=== PATIENT | male | born 1970 | race Caucasian/White ===

== ENCOUNTER 2021-04-18 15:17 | Emergency (ER) | payer OTHER, SELFPAY ==
[2021-04-18 15:39] VITALS: BP 140/74; PULSE 87; RESP 18; TEMP 36.8; O2SAT 95; BMI 48.4
--- NOTE | 2021-04-18 16:02 | HMH.EDUTC ---
[facility] [place] Clinical Impression: Wound of abdomen, Need for tetanus, diphtheria, and acellular pertussis (Tdap) vaccine Dog bite Qualifiers: Encounter type: initial encounter Qualified Code(s): W54.0XXA - Bitten by dog, initial encounter Disposition: Home, Self-Care Condition on Discharge: Good Instructions: DI for Animal Bites, Tetanus, Diphtheria, Pertussis (Tdap) Vaccine, DI for Dog Bite Additional Instructions: Keep the wounds clean and dry. Follow up with your regular doctor. Take the antibiotics as directed and apply the topical antibiotics as directed. Make sure you stay in contact with the health department regarding the health of the dog. Watch the puncture wounds for signs of worsening infection, such as worsening redness, drainage, swelling, etc. GO TO THE ER FOR ANY WORSENING SYMPTOMS Prescriptions: Amoxicillin/Potassium Clav [Augmentin 875-125 Tablet] 1 tab PO Q12H 10 Days #20 tab Transmission Status: Received by [email or web address] #[id number] Mupirocin [Bactroban 2% Ointment 22gm tube] 1 applicatio TP TID 7 Days #1 gm Transmission Status: Received by [email or web address] #[id number] Referrals: Joel Alan MD [Primary Care Provider] - Time of Disposition: 16:33 Medical Decision Making - Medical Records Medical records reviewed: No: I reviewed the patient's medical records. - Georgi Inquiry Pt receiving controlled substance: No Vital Signs: 04/18/21 15:39 04/18/21 16:36 Temperature 98.2 F 98.2 F Temperature Source Oral Pulse Rate 85 Pulse Rate [Radial] 87 Respiratory Rate 18 19 Blood Pressure 145/70 H Blood Pressure [Right Arm] 140/74 Blood Pressure Mean [Right Arm] 96 02 Sat by Pulse Oximetry 95 Orders (Tests/Meds): ED MEDICATIONS Discontinued Medications Generic Name Dose Route Start Last Admin Trade Name Freq PRN Reason Stop Dose Admin Tetanus/Reduced Diphtheria/Acell Pertussis 0.5 ml 04/18/21 16:02 04/18/21 16:10 Tet/Diphth/Pert-Adult 0.5ml Syringe IM 04/18/21 16:03 0.5 ml .ONCE ONE Administration [facility] [place] - General Stated complaint: dog scratch AO 04/18/21 Time Seen by Provider: 04/18/21 16:02 Mode of Arrival: Ambulatory Source of Information: Patient Limitations: No Limitations Description of Symptoms (Recalled from Triage Doc. by RN): DOG STRATCHES FROM A STRAY DOG NOTED TO THE LEFT SIDE. 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 He does not think the dog had it's rabies shot. He states that the dog was a stray that had took up at his daughter in law's house. He doesn't think the dog meant to be mean or acted visious. He was swinging some keys and he thinks the dog was trying to play or grab the keys. - Related Data Previous Rx's Medication Instructions Recorded Amoxicillin/Potassium Clav 1 tab PO Q12H 10 Days #20 tab 04/18/21 [Augmentin 875-125 Tablet] Mupirocin [Bactroban 2% Ointment 1 applicatio TP TID 7 Days #1 gm 04/18/21 22gm tube] Allergies Allergy/AdvReac Type Severity Reaction Status Date / Time INGREDIENT: NO KNOWN - NO Allergy Unknown Uncoded 06/14/17 14:44 KNOWN DRUG ALLERGY - Worker's Comp Is this a Worker's Comp case?: No [facility] History - Hepatitis A Screen Drug use history?: No High risk sexual behaviors?: No History of sexually transmitted infection?: No Currently employed?: No Childcare worker?: No Do you have indoor plumbing?: Yes Do you have electricity?: Yes Attestation statement:: This patient has been screened for Hepatitis A risk factors. I have reviewed the patient's past medical history: Yes ROS Obtained: Yes All systems review
[2021-04-18 16:36] VITALS: BP 145/70; PULSE 85; RESP 19; TEMP 36.8; O2SAT 96
== END 2021-04-18 16:39 | disposition home or self-care (01) ==
PROVIDERS: Emergency Provider Nurse Practitioner Family; PCP Family Medicine
DX: S31.131A Puncture wound of abdominal wall without foreign body, left upper quadrant without penetration into peritoneal cavity, initial encounter (principal); W54.0XXA Bitten by dog, initial encounter; Z23 Encounter for immunization
CPT/HCPCS: 90715; 96372; 99202; G0463

== ENCOUNTER 2023-06-13 17:23 | Emergency (ER) | payer OTHER, SELFPAY ==
[2023-06-13 17:40] VITALS: BP 160/90; PULSE 82; RESP 18; TEMP 36.8; O2SAT 95; BMI 46.7
[2023-06-13 17:54] LABS: UTC Influenza A Antigen Negative (Negative)
[2023-06-13 17:55] LABS: UTC Influenza B Antigen Negative (Negative)
--- NOTE | 2023-06-13 18:23 | EXP.UTC ---
Discharge Plan Disposition Patient Disposition: Home, Self-Care Condition: Good Prescriptions Prescriptions: New methylprednisolone [Medrol (Dion)] 4 mg tablets,dose pack See Rx Instructions .Route .COMPLEX 6 Days Qty: 21 0RF Rx Instructions: taper pack; amoxicillin-pot clavulanate 875-125 mg Tablet 1 tab PO Q12H Qty: 20 0RF guaifenesin [Mucinex] 600 mg tablet extended release 12hr 1,200 mg PO BID PRN (Reason: cough) Qty: 20 0RF Referrals Follow up/Referrals: Kostas Nunn MD [Primary Care Provider] - See instructions Activity Restrictions/Add. Instructions Additional Instructions/Restrictions: *Monitor Temp, Over the counter Motrin or Tylenol as directed/as needed Tylenol every 4 hours and Motrin every 6 hours (as long as your family doctor has told you that you can take it) for fever or pain. and straight to ER if unable to lower temp less than 101.0 after medication given *Warm salt water gargles may help to soothe the throat *Throat Lozenges? *Warm fluids like tea with honey may help to soothe the throat? *Sleep elevated *Humidifier/Vaporizer Take medication as prescribed Follow up with your Family Doctor if no improvement or any worsening Follow up IMMEDIATELY for new or worsening symptoms or no Noticeable improvement over the next 48-72 hours. 911 for difficulty breathing or swallowing Clinical Impressions Clinical Impression: Sinusitis Qualifiers: Sinusitis location: unspecified location Chronicity: unspecified Qualified Code(s): J32.9 - Chronic sinusitis, unspecified Instructions Patient Instructions: Sinusitis, DI for Sinusitis Discharge ED Provider: Mora Martinez [facility] [place] HPI General Stated complaint: congestion, body aches, cough Mode of Arrival: Ambulatory Source of Information: Patient Limitations: No Limitations Time Seen by Provider: 06/13/23 18:23 Description of Symptoms (Recalled from Triage Doc. by RN): body aches, and sinus pressure HEENT Symptoms (Recalled from RN notes): Yes Resp Symptoms (Recalled from RN notes): No Skin Symptoms (Recalled from RN notes): No MS Symptoms (Recalled from RN notes): No Functional Status (Recalled from RN notes): n/a History of Present Illness Provider Complaint: Patient states that he has not been feeling well for about a week States that he has been having sinus pain and pressure, body aches, chills, headache, and pressure behind his eyes States today he was still not feeling any better so he came in to get checked Related Data Previous Rx's Medication Instructions Recorded amoxicillin 875 mg-potassium 1 tab PO Q12H #20 tabs 06/13/23 clavulanate 125 mg tablet guaifenesin 600 mg tablet, 1,200 mg PO BID PRN cough #20 tabs 06/13/23 extended release 12 hr (Mucinex) methylprednisolone 4 mg tablets in See Rx Instructions .Route 06/13/23 a dose pack (Medrol (Dion)) .COMPLEX 6 days #21 tabs Allergies Allergy/AdvReac Type Severity Reaction Status Date / Time INGREDIENT: NO KNOWN - NO Allergy Unknown Uncoded 06/13/23 17:55 KNOWN DRUG ALLERGY Worker's Comp Is this a Worker's Comp case?: No [facility] Disclaimer: The information contained in this section may have been updated after the patient was seen, as this information can be updated by other users. Social History Smoking Status: Unknown if ever smoked alcohol intake: never current occupational status: employed Travel in the last 8 weeks: None ROS Obtained: Yes All systems reviewed & no additional complaints except as documented and Yes Systems reviewed as appropriate & no additional complaints except as documented Constitutional Constitutional: Reports system reviewed and no additional complaints, except as documented, Reports as per HPI, Denies fever(s) and Reports headache(s) ENT Ears, Nose, Mouth, and Throat: Reports system reviewed and no additional complaints, except as documented, Reports as per HPI, Reports
[2023-06-13 18:39] VITALS: BP 160/90; PULSE 82; RESP 18; TEMP 36.8; O2SAT 95
== END 2023-06-13 18:39 | disposition home or self-care (01) ==
PROVIDERS: Emergency Provider Nurse Practitioner; PCP Family Medicine
DX: J01.90 Acute sinusitis, unspecified (principal); R05.9 Cough, unspecified; R09.81 Nasal congestion; R51.9 Headache, unspecified; R68.83 Chills (without fever)
CPT/HCPCS: 87804; 99212; 99214; G0463

== ENCOUNTER 2023-12-04 13:34 | Emergency (ER) | payer OTHER, SELFPAY ==
[2023-12-04 14:20] VITALS: BP 128/77; PULSE 79; RESP 20; TEMP 36.8; O2SAT 96; BMI 47.1
[2023-12-04 14:32] LABS: UTC Strep Screen (Rapid) Positive (Negative)
--- NOTE | 2023-12-04 14:56 | EXP.UTC ---
Discharge Plan Disposition Patient Disposition: Home, Self-Care Condition: Good Prescriptions Prescriptions: New azithromycin 250 mg tablet 250 mg PO DIRECTED Qty: 6 0RF Rx Instructions: Take two (2) tablets on day #1, then one (1) tablet day #2 thru #5 Referrals Follow up/Referrals: Provider,Referral, MD [Primary Care Provider] - See instructions Activity Restrictions/Add. Instructions Additional Instructions/Restrictions: Start antibiotics today be sure to take it as ordered with the full length of time although you should start feeling better in 24-48 hours. Change toothbrush and toothpaste 24-48 hours after starting antibiotics Tylenol or Motrin as needed for fever or pain Encourage fluids, water, Gatorade, Powerade, try cold fluids, popsicles, ice cream will make it feel better You are contagious for 24 hours. Avoid kissing anyone, no eating or drinking after anyone. You are contagious. Follow-up the ER for new or worsening symptoms or no noticeable improvement over the next 24-48 hours. Follow-up with PCP this week. Clinical Impressions Clinical Impression: Strep throat Instructions Patient Instructions: DI for Strep Throat Discharge ED Provider: Gilberto ([facility])Shane [facility] [place] HPI General Stated complaint: sore throat, cough, right ear pain Mode of Arrival: Ambulatory Source of Information: Patient and Spouse Limitations: No Limitations Time Seen by Provider: 12/04/23 14:56 Description of Symptoms (Recalled from Triage Doc. by RN): PATIENT C/O COUGH AND SORE THROAT X 3 DAYS HEENT Symptoms (Recalled from RN notes): Yes Resp Symptoms (Recalled from RN notes): Yes Skin Symptoms (Recalled from RN notes): No MS Symptoms (Recalled from RN notes): No Functional Status (Recalled from RN notes): WNL History of Present Illness Provider Complaint: 53 yr old male presents for cough and sore throat for 2 days Related Data Previous Rx's Medication Instructions Recorded azithromycin 250 mg tablet 250 mg PO DIRECTED #6 tabs 12/04/23 Allergies Allergy/AdvReac Type Severity Reaction Status Date / Time No Known Allergies Allergy Unverified 07/14/23 14:28 Worker's Comp Is this a Worker's Comp case?: No [facility] Disclaimer: The information contained in this section may have been updated after the patient was seen, as this information can be updated by other users. 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) Smoking Status: Unknown if ever smoked alcohol intake: never current occupational status: employed Travel in the last 8 weeks: None ROS Obtained: Yes All systems reviewed & no additional complaints except as documented Constitutional Constitutional: Reports system reviewed and no additional complaints, except as documented Eyes Eyes: Reports system reviewed and no additional complaints, except as documented ENT Ears, Nose, Mouth, and Throat: Reports system reviewed and no additional complaints, except as documented, Reports as per HPI and Reports sore throat Cardiovascular Cardiovascular: Reports system reviewed and no additional complaints, except as documented Respiratory Respiratory: Reports system reviewed and no additional complaints, except as documented, Reports as per HPI and Reports cough Gastrointestinal Gastrointestingal: Reports system reviewed and no additional complaints, except as documented Musculoskeletal Musculoskeletal: Reports system reviewed and no additional complaints, except as documented Integumentary/Breasts Skin/Breast: Reports system reviewed and no additional complaints, except as documented Neurologic Neurologic: Reports system reviewed and no additional complaints, except as documented Endocrine Endocrine: Reports system reviewed and no additional complaints, except as documented Hematologic/Lymphatic Henatologic/Lymphatic: Reports system reviewed and no additional complaints, except as documented Allergic/Immunologic Allergic/Immunologic: Reports system reviewed and no additional complaints, except as documented Physical Exam General General appearance: alert and in no apparent distress Head Head exam: atraumatic Eye Eye exam: Present normal appearance ENT ENT exam: Present mucous membranes moist and TM's normal bilaterally Expanded ENT Exam Throat exam: Present tonsillar erythema, tonsillomegaly and tonsillar exudate Respiratory Respiratory exam: Present normal lung sounds bilaterally Cardiovascular Cardiovascular exam: Present regular rate and normal rhythm Neurological Exam Neurological exam: Present alert and oriented X3 Medical Decision Making Medical Records Medical records reviewed: Yes I reviewed the patient's medical records. Georgi Inquiry Pt receiving controlled substance: No Georgi was queried for this patient: No Vital Signs: 12/04/23 14:20 Temperature 98.2 F Temperature Source Oral Pulse Rate [Left Brachial] 79 Respiratory Rate 20 Blood Pressure [Left Arm] 128/77 Blood Pressure Mean [Left Arm] 94 Blood Pressure Source [Left Arm] Automatic Cuff Blood Pressure Position [Left Arm] Sitting 02 Sat by Pulse Oximetry 96 Oxygen Delivery Method Room Air Lab Data Lab results reviewed: Yes I reviewed the patient's lab results. Lab Results 12/04/23 14:26: Strep Scn [facility] Positive A
[2023-12-04 15:07] VITALS: BP 128/77; PULSE 79; RESP 20; TEMP 36.8; O2SAT 96
== END 2023-12-04 15:09 | disposition home or self-care (01) ==
PROVIDERS: Emergency Provider Nurse Practitioner Family
DX: J02.0 Streptococcal pharyngitis (principal); R07.0 Pain in throat; R05.9 Cough, unspecified
CPT/HCPCS: 87880; 99212; 99214; G0463

== ENCOUNTER 2024-03-20 16:13 | Outpatient (POV) | payer OTHER, SELFPAY | END 2024-03-20 23:59 | disposition home or self-care (01) | LOC: SC 16:13 | PROVIDERS: Visit Provider Dermatology | DX: Z00.00 Encounter for general adult medical examination without abnormal findings (principal) ==

== ENCOUNTER 2024-03-31 18:26 | Emergency (ER) | payer OTHER, SELFPAY ==
[2024-03-31 18:37] VITALS: BP 146/75; PULSE 85; RESP 20; TEMP 37.1; O2SAT 96
[2024-03-31 18:38] VITALS: BP 146/75; PULSE 85; RESP 20; TEMP 37.1
== END 2024-03-31 18:39 | disposition home or self-care (01) ==
LOC: UTC 18:32
PROVIDERS: Emergency Provider Nurse Practitioner Family
DX: Z48.02 Encounter for removal of sutures (principal)
CPT/HCPCS: 99211; G0381

== ENCOUNTER 2024-07-13 17:38 | Emergency (ER) | payer OTHER, SELFPAY ==
[2024-07-13 17:50] VITALS: BP 140/80; PULSE 76; RESP 19; TEMP 36.8; O2SAT 97; BMI 40.4
[2024-07-13 18:00] LABS: UTC Strep Screen (Rapid) Positive (Negative)
--- NOTE | 2024-07-13 18:03 | ED_ITS ---
Discharge Plan Disposition Patient Disposition: Home, Self-Care Condition: Good Prescriptions Prescriptions: New prednisone 20 mg tablet 20 mg PO BID 3 Days Qty: 6 0RF benzonatate 100 mg capsule 100 mg PO TIDP PRN (Reason: Cough) Qty: 30 0RF amoxicillin-pot clavulanate 875-125 mg Tablet 1 tab PO Q12H Qty: 20 0RF Referrals Follow up/Referrals: Provider,Referral, MD [Primary Care Provider] - See instructions Activity Restrictions/Add. Instructions Additional Instructions/Restrictions: Drink plenty of fluids. Take tylenol or ibuprofen for pain or fever. Take the medications as directed. Follow up with your regular doctor. GO TO THE ER FOR ANY WORSENING SYMPTOMS Throw your tooth brush away and get a new one. Clinical Impressions Clinical Impression: Strep throat Instructions Patient Instructions: Strep Throat, DI for Strep Throat Print Language Print Language: Frisian Discharge ED Provider: Jose R Barahona [facility] [place] HPI General Stated complaint: sore throat cough Mode of Arrival: Ambulatory Source of Information: Patient Limitations: No Limitations Time Seen by Provider: 07/13/24 18:02 Description of Symptoms (Recalled from Triage Doc. by RN): PATIENT C/O SORE THROAT, COUGH, AND CHEST CONGESTION THAT STARTED THIS MORNING HEENT Symptoms (Recalled from RN notes): Yes Resp Symptoms (Recalled from RN notes): Yes Skin Symptoms (Recalled from RN notes): No MS Symptoms (Recalled from RN notes): No Functional Status (Recalled from RN notes): WNL History of Present Illness Provider Complaint: He states that he has had sore throat for the past 2 days. Now his throat is hurting worse and he is having chest and sinus congestion. He has ran a low grade fever at times too. Related Data Previous Rx's ?Medication ?Instructions ?Recorded amoxicillin 875 mg-potassium 1 tab PO Q12H #20 tabs 07/13/24 clavulanate 125 mg tablet benzonatate 100 mg capsule 100 mg PO TIDP PRN Cough #30 caps 07/13/24 prednisone 20 mg tablet 20 mg PO BID 3 days #6 tabs 07/13/24 Allergies Allergy/AdvReac Type Severity Reaction Status Date / Time No Known Allergies Allergy Unverified 07/14/23 14:28 Worker's Comp Is this a Worker's Comp case?: No [facility] Disclaimer: The information contained in this section may have been updated after the patient was seen, as this information can be updated by other users. 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) Smoking Status: Unknown if ever smoked alcohol intake: never current occupational status: employed Travel in the last 8 weeks: None Have you lived/traveled outside [place] in past 30 days?: No Contact w/someone who lives/traveled outside US past 30 days?: No Exposure to someone with infectious disease in past 14 days?: No Do you have a fever (greater than 100.4 F or 38 C)?: No Have you tested positive for COVID-19: No Exposed to someone with COVID-19 in past 14 days?: No Do you have a sore throat?: Yes Do you have a cough?: Yes Do you have any weakness?: No Do you have any diarrhea?: No Are you experiencing any unusual bleeding?: No Do you have any muscle aches/pain?: No Do you have any abdominal pain?: No Are you experiencing loss of taste or smell?: No ROS Obtained: Yes All systems reviewed & no additional complaints except as documented Constitutional Constitutional: Reports chills and Reports fever(s) Eyes Eyes: Denies eye discharge ENT Ears, Nose, Mouth, and Throat: Reports as per HPI Cardiovascular Cardiovascular: Denies chest pain Respiratory Respiratory: Denies chest congestion and Reports cough Gastrointestinal Gastrointestingal: Reports nausea; Denies abdominal pain, constipation, cramping, diarrhea or vomiting Musculoskeletal Musculoskeletal: Denies arthralgias Integumentary/Breasts Skin/Breast: Denies rash Neurologic Neurologic: Denies paresthesias Physical Exam General General appearance: alert and in no apparent distress Head Head exam: atraumatic, normocephalic and normal inspection Eye Eye exam: Present normal appearance, PERRL and EOMI ENT ENT exam: Present mucous membranes moist and normal external ear exam Expanded ENT Exam TM/Canal exam: Bilateral TM: erythema and bulging Nose exam: Absent sinus tenderness Mouth exam: Present normal external inspection; Absent drooling Teeth exam: Present normal inspection Throat exam: Present tonsillar erythema, tonsillomegaly and tonsillar exudate Neck Neck exam: Present normal inspection, full ROM and trachea midline; Absent tenderness, meningismus or lymphadenopathy Chest Chest inspection: Present normal inspection and symmetric chest wall rise; Absent tenderness Respiratory Respiratory exam: Present normal lung sounds bilaterally; Absent respiratory distress, wheezes, stridor or accessory muscle use Cardiovascular Cardiovascular exam: Present regular rate and normal rhythm; Absent systolic murmur or diastolic murmur Abdominal Exam Abdominal exam: Present soft and normal bowel sounds; Absent distention, te nderness, guarding, rebound or rigidity Extremities Exam Extremities exam: Present normal inspection and normal capillary refill; Absent calf tenderness Back Exam Back exam: Present normal inspection and full ROM; Absent tenderness, CVA tenderness (R) or CVA tenderness (L) Neurological Exam Neurological exam: Present alert, oriented X3 and CN II-XII intact Psychiatric Psychiatric exam: Present normal affect and normal mood Skin Skin exam: Present warm, dry, intact and normal color Medical Decision Making Medical Records Medical records reviewed: No I reviewed the patient's medical records. Screening: Per USPSTF and CDC recommendations, given the prevalence of disease in our region, it is our hospital?s policy to screen for HIV and viral Hepatitis for all patients aged 18 and over and those with ongoing risk factors. Georgi Inquiry Pt receiving controlled substance: No Vital Signs: 07/13/24 17:50 Temperature 98.3 F Temperature Source Oral Pulse Rate [Left Brachial] 76 Respiratory Rate 19 Blood Pressure [Left Arm] 140/80 Blood Pressure Mean [Left Arm] 100 Blood Pressure Source [Left Arm] Automatic Cuff Blood Pressure Position [Left Arm] Sitting 02 Sat by Pulse Oximetry 97 Oxygen Delivery Method Room Air Lab Data Lab results reviewed: Yes I reviewed the patient's lab results. Lab Results 07/13/24 17:52: Strep Scn Rapid Clinic Positive A
[2024-07-13 18:20] VITALS: BP 140/80; PULSE 76; RESP 19; TEMP 36.8; O2SAT 97
== END 2024-07-13 18:23 | disposition home or self-care (01) ==
PROVIDERS: Emergency Provider Nurse Practitioner Family
DX: J02.0 Streptococcal pharyngitis (principal)
CPT/HCPCS: 87880; 99213; G0381

== ENCOUNTER 2025-01-08 19:06 | Emergency (ER) | payer OTHER, SELFPAY ==
[2025-01-08] VITALS (11 sets, daily range): BP systolic 151–178; BP diastolic 87–101; PULSE 69–93; RESP 18–20; TEMP 36.7–36.8; O2SAT 95–98; BMI 48.4
--- NOTE | 2025-01-08 19:49 | CT_ITS ---
PROCEDURE INFORMATION: Exam: CT Abdomen And Pelvis With Contrast Exam date and time: 01/08/2025 8:49 PM Age: 54 years old Clinical indication: Abdominal pain TECHNIQUE: Imaging protocol: Computed tomography of the abdomen and pelvis with contrast. Radiation optimization: All CT scans at this facility use at least one of these dose optimization techniques: automated exposure control; mA and/or kV adjustment per patient size (includes targeted exams where dose is matched to clinical indication); or iterative reconstruction. Contrast material: ISOVUE; Contrast volume: 75 ml; Contrast route: IV; COMPARISON: US TESTICULAR 01/08/2025 8:43 PM FINDINGS: Liver: Hepatomegaly. No mass. Gallbladder and biliary ducts: Cholecystectomy. Pancreas: Fatty infiltration of the head. Mildly atrophic. No ductal dilation. Spleen: Normal. No splenomegaly. Adrenal glands: Normal. No mass. Kidneys and ureters: Normal. No hydronephrosis. Stomach and bowel: Minimal colonic diverticulosis. No obstruction. No mucosal thickening. Appendix: No evidence of appendicitis. Intraperitoneal space: Unremarkable. No free air. No significant fluid collection. Vasculature: Unremarkable. No abdominal aortic aneurysm. Lymph nodes: Unremarkable. No enlarged lymph nodes. Urinary bladder: Unremarkable as visualized. Reproductive: Prostatomegaly Bones/joints: Degenerative changes. No acute fracture. Grade 1 anterolisthesis L5 on S1, on the basis of bilateral L5 pars defects. Soft tissues: Small right and minimal left fat containing inguinal hernias. Small fat containing umbilical hernia. IMPRESSION: Minimal colonic diverticulosis.
--- NOTE | 2025-01-08 19:55 | ED_ITS ---
<Statement entered by Chino Barron MD - 01/08/25 23:23> I was consulted by the MILLIE, and we discussed the complexity of the problems being addressed. I approved the treatment and management plan for this patient's care in the emergency department, thus performing a substantive portion of the medical decision making. Chino Barron MD, PEG, FACEP Discharge Plan Disposition Patient Disposition: Home, Self-Care Prescriptions Prescriptions: No Action prednisone 20 mg tablet 20 mg PO BID 3 Days Qty: 6 0RF benzonatate 100 mg capsule 100 mg PO TIDP PRN (Reason: Cough) Qty: 30 0RF amoxicillin-pot clavulanate 875-125 mg Tablet 1 tab PO Q12H Qty: 20 0RF Referrals Follow up/Referrals: Comfort Siddiqi APRN [Primary Care Provider, Family Practice] - See instructions Activity Restrictions/Add. Instructions Additional Instructions/Restrictions: Follow with your PCP for further workup and management. If you have any other problems or concerns please return to the ED Clinical Impressions Clinical Impression: Constipation Instructions Patient Instructions: Constipation Print Language Print Language: Nigerian Discharge ED Provider: Chino Barron General Adult HPI General Chief complaint: PAIN Stated complaint: right testicle pain and swollen,chronic Time Seen by Provider: 01/08/25 19:49 History of Present Illness HPI narrative: 54-year-old male presents to the ED today with complaint of abdominal pain and right testicular pain for 2 weeks. He states that the last time he had a bowel movement was yesterday with medications that his gave him to have a bowel movement. He states that he has been having trouble having bowel movements without taking medications. His gave him herbal tea to be able to go yesterday. He tells me that he has had dull pain in his right testicle for the past 2 weeks and it comes and goes. Related Data Previous Rx's ?Medication ?Instructions ?Recorded amoxicillin 875 mg-potassium 1 tab PO Q12H #20 tabs clavulanate 125 mg tablet benzonatate 100 mg capsule 100 mg PO TIDP PRN Cough #3 0 caps 07/13/24 prednisone 20 mg tablet 20 mg PO BID 3 days #6 tabs 07/13/24 Allergies Allergy/AdvReac Type Severity Reaction Status Date / Time No Known Allergies Allergy Verified 01/08/25 20:05 [facility] Disclaimer: The information contained in this section may have been updated after the patient was seen, as this information can be updated by other users. 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) Smoking Status: Never smoker alcohol intake: never current occupational status: employed Travel in the last 8 weeks?: None Have you lived/traveled outside US in past 30 days?: No Contact w/someone who lives/traveled outside US past 30 days?: No Exposure to someone with infectious disease in past 14 days?: No Do you have a fever (greater than 100.4 F or 38 C)?: No Have you tested positive for COVID-19?: No Exposed to someone with COVID-19 in past 14 days?: No Do you have a sore throat?: No Do you have a cough?: No Do you have any weakness?: No Do you have any diarrhea?: No Are you experiencing any unusual bleeding?: No Do you have any muscle aches/pain?: No Do you have any abdominal pain?: No Are you experiencing loss of taste or smell?: No ROS Obtained: Yes Systems reviewed as appropriate & no additional complaints except as documented Constitutional Constitutional: Reports as per HPI Physical Exam General General appearance: alert Head Head exam: atraumatic and normocephalic Eye Eye exam: Present normal appearance, PERRL and EOMI ENT ENT exam: Present normal oropharynx and mucous membranes moist Neck Neck exam: Present full ROM and trachea midline Respiratory Respiratory exam: Present normal lung sounds bilaterally Cardiovascular Cardiovascular exam: Present regular rate, normal rhythm, normal heart sounds, +S1 and +S2 Abdominal Exam Abdominal exam: Present soft, tenderness and normal bowel sounds Abdominal tenderness: Present RLQ and suprapubic exam: Present normal inspection and testicular tenderness (Right side) Extremities Exam Extremities exam: Present normal inspection, full ROM and normal capillary refill Neurological Exam Neurological exam: Present alert, oriented X3 and normal gait Skin Skin exam: Present warm, dry and intact Medical Decision Making Medical Records Screening: Per USPSTF and CDC recommendations, given the prevalence of disease in our region, it is our hospital?s policy to screen for HIV and viral Hepatitis for all patients aged 18 and over and those with ongoing risk factors. Georgi Inquiry Pt receiving controlled substance: No Georgi was queried for this patient: No Vital Signs: 01/08/25 19:44 01/08/25 20:00 01/08/25 20:02 Temperature 98.1 F Temperature Source Oral Pulse Rate Pulse Rate [Right] 93 H Respiratory Rate 18 Blood Pressure 151/87 H 178/96 H Blood Pressure [Right Arm] 151/87 H Blood Pressure Mean 97 113 Blood Pressure Mean [Right Arm] 108 Blood Pressure Source [Right Arm] Automatic Cuff Blood Pressure Position [Right Arm] Sitting 02 Sat by Pulse Oximetry 97 Oxygen Delivery Method Room Air 01/08/25 20:15 01/08/25 20:30 01/08/25 20:45 Temperature Temperature Source Pulse Rate 82 83 Pulse Rate [Right] Respiratory Rate Blood Pressure 151/96 H Blood Pressure [Right Arm] Blood Pressure Mean 108 Blood Pressure Mean [Right Arm] Blood Pressure Source [Right Arm] Blood Pressure Position [Right Arm] 02 Sat by Pulse Oximetry 98 95 Oxygen Delivery Method 01/08/25 22:07 Temperature Temperature Source Pulse Rate 80 Pulse Rate [Right] Respiratory Rate Blood Pressure Blood Pressure [Right Arm] Blood Pressure Mean Blood Pressure Mean [Right Arm] Blood Pressure Source [Right Arm] Blood Pressure Position [Right Arm] 02 Sat by Pulse Oximetry 96 Oxygen Delivery Method Lab Data Lab Results 01/08/25 20:15: WBC 7.6, RBC 5.30, Hgb 14.5, Hct 43.2, MCV 81.5, MCH 27.4, MCHC 33.6, RDW 12.7, Plt Count 267, MPV 9.9, Neut % (Auto) 67.6, Lymph % (Auto) 20.2, Gem % (Auto) 9.3, Eos % (Auto) 2.0, Baso % (Auto) 0.5, Neut # (Auto) 5.2, Lymph # (Auto) 1.5, Gem # (Auto) 0.7, Eos # (Auto) 0.2, Baso # (Auto) 0.0, Sodium 139, Potassium 3.8, Chloride 102, Carbon Dioxide 29, Anion Gap 11.8, BUN 12, Creatinine 0.80, Estimated Creat Clear 96, Estimated GFR 101, Est GFR ( Amer) 122, Glucose 110 H, Calcium 9.0, Magnesium 1.9, Total Bilirubin 1.0, AST 31, ALT 32, Alkaline Phosphatase 68, Troponin I < 0.01, Total Protein 7.2, Albumin 4.2, Globulin 3.0, Albumin/Globulin Ratio 1.4, Lipase 55 01/08/25 22:05: Urine Color Yellow, Urine Appearance Clear, Urine pH 5.5, Ur Specific [place] 1.015, Urine Protein Negative, Urine Glucose (UA) Negative, Urine Ketones Negative, Urine Blood Negative, Urine Nitrate Negative, Urine Bilirubin Negative, Urine Urobilinogen 0.2, Ur Leukocyte Esterase Negative 01/08/25 20:15 01/08/25 20:15 Orders (Tests/Meds): ED MEDICATIONS Discontinued Medications Generic Name Dose Route Start Last Admin Trade Name Freq PRN Reason Stop Dose Admin Sodium Chloride 1,000 mls @ 999 mls/hr 01/08/25 19:49 01/08/25 20:04 Sod Chlor 0.9% 1000ml Bag IV 01/08/25 20:49 999 mls/hr .Q1H1M ONE Administration Iopamidol 75 ml 01/08/25 20:48 01/08/25 20:48 Iopamidol-370 (76%);100ml Bottle IV 01/08/25 20:49 75 ml ONCE ONE Administration Ketorolac Tromethamine 30 mg 01/08/25 19:49 01/08/25 20:04 Ketorolac 30mg/Ml Vial IV 01/08/25 19:50 30 mg ONCE ONE Administration Sodium Chloride 10 ml 01/08/25 20:48 01/08/25 20:48 Sodium Chloride 0.9% 10ml Syr (Rad Only) IV 01/08/25 20:49 10 ml ONCE ONE Administration ORDERS Category Date Time Status CT abdomen pelvis w con Stat Cat Scan 01/08/25 19:49 Completed CBC [Complete Blood Count Auto Diff] Stat Lab 01/08/25 20:15 Completed Comprehensive Metabolic Panel Stat Lab 01/08/25 20:15 Completed Lipase Stat Lab 01/08/25 20:15 Completed Magnesium Stat Lab 01/08/25 20:15 Completed Trop I [Troponin I] Stat Lab 01/08/25 20:15 Completed Troponin I Q3H Lab 01/08/25 23:00 Ordered Troponin I Q3H Lab 01/09/25 02:00 Ordered Urinalysis and Microscopic Stat Lab 01/08/25 22:05 Results US Testicular Stat Ultrasound 01/08/25 20:01 Completed Medical Decision Narrative: patient is a 54-year-old male presenting to the emergency department for evaluation of 2 weeks of dull testicular pain on the right and right lower abdominal pain. Patient is hemodynamically stable and nontoxic-appearing upon arrival, afebrile. Differential diagnosis includes constipation, torsion, appendicitis, among others. Workup will be conducted with hematologic labs, specific imaging. Initial inventions include crystalloid bolus, analgesics, antibiotics. Initial workup reviewed by me hematologic labs are remarkable for anything acute. Formal imaging read remarkable for diverticulosis but no diverticulitis. Upon repeat evaluation patient's pain is improved. Johnny with patient that workup is negative. I do still want him to follow-up with PCP to rule out anything else. Critical Care Critical Care Time Critical Care Time: No
--- NOTE | 2025-01-08 20:01 | US_ITS ---
PROCEDURE INFORMATION: Exam: US Scrotum and Artery or Vein of the Abdominal and/or Reproductive Organs, Limited Scrotum Exam date and time: 01/08/2025 8:43 PM Age: 54 years old Clinical indication: Scrotum pain; Additional info: Rule out torsion -- RT testicle pain TECHNIQUE: Imaging protocol: Real-time ultrasound of the scrotum. Real-time duplex ultrasound scan of the arterial or venous flow with nair scale, color Doppler flow and spectral waveform analysis with image documentation. Limited Duplex exam focused of the scrotum. Duplex exam was performed to evaluate for torsion and other vascular conditions. COMPARISON: No relevant prior studies available. FINDINGS: Right testicle: Normal size and echogenicity. 4 mm intratesticular cyst within the posterior aspect of the upper pole. Normal waveforms on Doppler. Left testicle: Normal size and echogenicity. 3 mm intratesticular cyst within the lower pole. Normal arterial and venous waveforms on Doppler. Epididymides: Unremarkable. Scrotum/soft tissues: Unremarkable. IMPRESSION: No acute findings. No evidence of testicular torsion.
[2025-01-08] MEDS: KETOROLAC 30MG/ML VIAL 30 MG IV (20:04)
[2025-01-08] MEDS: 0.9 % SODIUM CHLORIDE 1000ML 1,000 ML 999 ML IV (20:04)
[2025-01-08 20:24] LABS: Hematocrit 43.2 % (42.0-52.0); Hemoglobin 14.5 g/dL (14.1-18.0); Immature Granulocytes % 0.4 %; Mean Corpuscular HGB Conc 33.6 g/dL (31.8-35.4); Mean Corpuscular Hemoglobin 27.4 pg (27.0-31.2); Mean Corpuscular Volume 81.5 fl (80-94); Nucleated Red Blood Cells % 0 %; Platelet Count 267 K/mm3 (142-424); Red Blood Count 5.30 M/mm3 (4.60-6.20); Red Cell Distribution Width-SD 37.6 fL; White Blood Count 7.6 K/mm3 (4.8-10.8)
[2025-01-08 20:30] LABS: Chloride 102 mmol/L (98-107); Potassium 3.8 mmoL/L (3.5-5.1); Sodium 139 mmol/L (136-145)
[2025-01-08 20:32] LABS: Alanine Aminotransferase 32 U/L (12-78); Aspartate Amino Transferase 31 U/L (17-59); Blood Urea Nitrogen 12 mg/dl (9-20); Creatinine Clearance Estimated 96 mL/min (50-200); Creatinine,Serum 0.80 mg/dl (0.66-1.25); Estimated Glomerular Filt Rate 101 ml/min (>60); GFR (African American) 122 ML/MIN (>60)
[2025-01-08 20:33] LABS: Alkaline Phosphatase 68 U/L (38-126); Bilirubin,Total 1.0 mg/dl (0.2-1.3); Calcium 9.0 mg/dl (8.4-10.2); Glucose 110 mg/dl (74-100); Lipase 55 U/L (23-300); Magnesium 1.9 mg/dl (1.6-2.3); Total Protein,Serum 7.2 g/dl (6.3-8.2)
[2025-01-08 20:48] LABS: Troponin I < 0.01 ng/ml (0.00-0.034)
[2025-01-08] MEDS: SODIUM CHLORIDE 0.9% 10ML SYR (RAD ONLY) 10 ML IV (20:48)
[2025-01-08] MEDS: IOPAMIDOL-370 (76%);100ML BOTTLE 75 ML IV (20:48)
[2025-01-08 20:50] LABS: Albumin Level 4.2 g/dl (3.5-5.0); Albumin/Globulin Ratio 1.4 (1.1-1.8); Anion Gap 11.8 mEq/L (5-15); Carbon Dioxide 29 mmol/L (22.0-30.0); Globulin 3.0 g/dL (1.3-3.2)
[2025-01-08 22:11] LABS: Microscopic, Urine URINE MICROSCOPIC (MICROSCOPIC)
[2025-01-08 22:12] LABS: Bilirubin,Urine Negative (Negative); Color,Urine YELLOW (Yellow); Glucose,Urine (UA) Negative (Negative); Ketones,Urine Negative (Negative); Leukocyte Esterase,Urine Negative (Negative); PH,Urine 5.5 (5.0-8.5); Protein,Urine Negative (Negative); Specific Gravity, Urine 1.015 (1.005-1.030); Urobilinogen,Urine 0.2 EU/dl (0.2)
== END 2025-01-08 22:46 | disposition home or self-care (01) ==
PROVIDERS: Nurse Practitioner; Emergency Provider Student in an Organized Health Care Education/Training Program; PCP Family Medicine
DX: R10.30 Lower abdominal pain, unspecified (principal); K59.00 Constipation, unspecified
CPT/HCPCS: 74177; 76870; 80053; 81001; 83690; 83735; 84484; 85025; 96361; 96374; 99285; J1885; J7030; Q9967

== ENCOUNTER 2025-01-10 16:46 | Outpatient (CLI) | payer OTHER, SELFPAY ==
[2025-01-10 20:12] LABS: Hemoglobin A1C 6.8 % (4.0-6.0)
[2025-01-10 21:14] LABS: Cholesterol 213 mg/dl (140-200); HDL Cholesterol 34 mg/dl (40-60); Triglycerides 154 mg/dl (30-150)
== END 2025-01-10 23:59 | disposition home or self-care (01) ==
LOC: LAB.DROPOF 01-11 10:13
PROVIDERS: PCP Family Medicine; Visit Provider Family Medicine
DX: E66.9 Obesity, unspecified (principal); R73.9 Hyperglycemia, unspecified
CPT/HCPCS: 80061; 83036; G0103

== ENCOUNTER 2025-01-31 10:05 | Day surgery (SDC) | payer OTHER, SELFPAY ==
--- NOTE | 2025-01-31 08:45 | P.HP_ITS ---
History of Present Illness *Admission Date: 01/31/25 *History of present illness: Mr. Tripp is a 54-year-old gentleman who is here for diagnostic colonoscopy secondary to constipation and rectal bleeding with bright red blood per rectum. He also has some bloating and nausea at times. He did have CT imaging of the abdomen and pelvis on 01/08/2025 that showed minimal colonic diverticulosis but no other findings. His lab work from showed normal hemoglobin 14.5 and hematocrit 43.2. His liver chemistries were normal and lipase 55. His PSA screening showed PSA level of 8.7. The patient does state that his constipation and rectal bleeding are new over the last 2 weeks. He does report straining wi th long periods of time on the commode, excessive wiping and occasional seepage with stool in the underpants. He has never had a colonoscopy. He does state that his maternal grandfather had colon cancer at an older age. He also states that his grandfather may have had prostate cancer. The patient does have some trouble urinating with some hesitancy. He does get some lower abdominal pain and discomfort with bloating. He has had some very minor weight loss of 5 pounds or less. [facility] Disclaimer: The information contained in this section may have been updated after the patient was seen, as this information can be updated by other users. 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 Hyperlipidemia Surgical History Hx of cholecystectomy Family History Mother H/O heart surgery Father H/O heart surgery Grandfather Diabetes Social History Smoking Status: Never smoker alcohol intake: current alcohol intake frequency: a few times a week substance use type: denies use current occupational status: employed Travel in the last 8 weeks?: None Have you lived/traveled outside US in past 30 days?: No Contact w/someone who lives/traveled outside US past 30 days?: No Exposure to someone with infectious disease in past 14 days?: No Do you have a fever (greater than 100.4 F or 38 C)?: No Have you tested positive for COVID-19?: No Exposed to someone with COVID-19 in past 14 days?: No Do you have a sore throat?: No Do you have a cough?: No Do you have any weakness?: No Do you have any diarrhea?: No Are you experiencing any unusual bleeding?: No Do you have any muscle aches/pain?: No Do you have any abdominal pain?: No Are you experiencing loss of taste or smell?: No Review of Systems Review of Systems Review of systems (narrative): Negative *Cardiovascular Comments: Negative *Gastrointestinal Comments: Negative *Genitourinary Comments: Negative *Musculoskeletal Comments: Negative *Neurologic Comments: Negative Meds Home Medications and Allergies Home Medications ?Medication ?Instructions ?Recorded ?Confirmed ?Type doxycycline monohydrate 100 mg 100 mg PO BID 10 days # 20 caps 01/10/25 01/31/25 Rx capsule atorvastatin 20 mg tablet (Lipitor) 20 mg PO DAILY #30 tabs 01/11/25 01/31/25 Rx hydrocortisone acetate 25 mg 25 mg DC HS #12 ea 01/31/25 Rx rectal suppository (Anusol-HC) New Prescriptions to Start Prescriptions: Allergies Allergy/AdvReac Type Severity Reaction Status Date / Time No Known Allergies Allergy Verified 01/31/25 10:25 Exam *Routine HEENT Exam Head: Present normocephalic Eye: Present EOMI and PERRL ENT: Present mucous membranes moist *Routine Neck Exam Neck: Present supple *Routine Respiratory Exam Respiratory: Present CTA bilaterally *Routine Cardiovascular Exam Cardiovascular: Present RRR *Routine Abdominal Exam Abdominal: Present soft and normoactive bowel sounds; Absent tenderness *Routine Rectal Exam Rectal:: deferred *Routine Genitalia Exam Genitalia:: deferred *Routine Extremities Exam Extremities: Absent cyanosis, clubbing or edema *Routine Skin Exam Skin: Present warm; Absent rash *Routine Neurological Exam Neurological: Present alert and oriented X3 Assessment and Plan *Assessment and plan (1) Bright red rectal bleeding: Status: Acute Category: Medical Code(s): K62.5 - Hemorrhage of anus and rectum (2) Lower abdominal pain: Status: Acute Category: Medical Code(s): R10.30 - Lower abdominal pain, unspecified (3) Bloating: Status: Acute Category: Medical Code(s): R14.0 - Abdominal distension (gaseous) (4) Change in bowel habits: Status: Acute Category: Medical Code(s): R19.4 - Change in bowel habit Plan A/P: 1. Bright red rectal bleeding with lower abdominal pain, bloating and change in bowel habits is the preprocedural diagnosis. The patient will be anesthetized/sedated using MAC sedation. The patient has been seen and examine d. Cardiac and lung assessment prior to the examination is stable. Proceed with planned diagnostic colonoscopy.
[2025-01-31 10:28] VITALS: BP 111/69; PULSE 80; RESP 19; TEMP 36.3; O2SAT 97; BMI 46.5
[2025-01-31] MEDS: LACTATED RINGERS 1000ML 1,000 ML 50 ML IV (10:41)
--- NOTE | 2025-01-31 10:56 | EXP.ANES.CKL ---
[facility] Disclaimer: The information contained in this section may have been updated after the patient was seen, as this information can be updated by other users. 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 Hyperlipidemia Surgical History Hx of cholecystectomy Family History Mother H/O heart surgery Father H/O heart surgery Grandfather Diabetes Social History Smoking Status: Never smoker alcohol intake: current alcohol intake frequency: a few times a week substance use type: denies use current occupational status: employed Travel in the last 8 weeks?: None Have you lived/traveled outside US in past 30 days?: No Contact w/someone who lives/traveled outside US past 30 days?: No Exposure to someone with infectious disease in past 14 days?: No Do you have a fever (greater than 100.4 F or 38 C)?: No Have you tested positive for COVID-19?: No Exposed to someone with COVID-19 in past 14 days?: No Do you have a sore throat?: No Do you have a cough?: No Do you have any weakness?: No Do you have any diarrhea?: No Are you experiencing any unusual bleeding?: No Do you have any muscle aches/pain?: No Do you have any abdominal pain?: No Are you experiencing loss of taste or smell?: No [facility] Anesthesia Checklist Patient Identification Patient Identification: Arm Band and Family Structural Data Admitted From: Home Planned Operative Procedure/s: Colonoscopy Consent for Planned Operative Procedure(s) Verified: Yes Verified Documents: Surgical Consent and History and Physical NPO Status Verified Time NPO: 00:00 Additional verifications Patient : No Anesthesia Reactions: No Hx Blood Transfusions: No Blood Transfusion Reaction: No Cephalosporin Allergy: No Previous Colonoscopy: No Airway Assessment Mallampati Score:: Class II C-Spine Mobility Assessed: Yes TMJ Mobility Assessed: Yes Dentition: Good Dentition Neurological Assessment Level of Consciousness: Awake, Alert, Appropriate and Follows Commands Hx Seizures: No Numbness or tingling in extremities: No Anesthesia Plan Anesthesia Risk discussed: Yes ASA Class: III Anesthesia Type: MAC Preoperative Comments Pre-Operative Comments: MO. Prediabetic.
--- NOTE | 2025-01-31 11:53 | P.PCN_ITS ---
[facility] Procedure Note Date: 01/31/25 Time: 12:12 Procedure Note:: Colonoscopy Procedure Report: Colonoscopy with cold biopsies Endoscopist: Skip Abbott II, MD Referring physician: BEE Bay Date of Procedure: January 31, 2025 Equipment: Olympus [id number] adult colonoscope Sedation: MAC sedation Indication: Mr. Tripp is a 54-year-old gentleman who is here for diagnostic colonoscopy secondary to constipation and rectal bleeding with bright red blood per rectum. He also has some bloating and nausea at times. He did have CT imaging of the abdomen and pelvis on 01/08/2025 that showed minimal colonic diverticulosis but no other findings. His lab work from showed normal hemoglobin 14.5 and hematocrit 43.2. His liver chemistries were normal and lipase 55. His PSA screening showed PSA level of 8.7. The patient does state that his constipation and rectal bleeding are new over the last 2 weeks. He does report straining with long periods of time on the commode, excessive wiping and occasional seepage with stool in the underpants. He has never had a colonos copy. He does state that his maternal grandfather had colon cancer at an older age. He also states that his grandfather may have had prostate cancer. The patient does have some trouble urinating with some hesitancy. He does get some lower abdominal pain and discomfort with bloating. He has had some very minor weight loss of 5 pounds or less. Procedure: Prior to the procedure, a history and physical exam was performed, and patient's medications and allergies were reviewed. The risks, benefits and alternatives of the sedation and procedure were discussed with the patient. All questions were answered and informed consent was obtained. The patient was brought to the procedure room. Patient identification and proposed procedure were verified by the physician and the nurse. The patient was placed in a left lateral decubitus position and the scope was passed under direct vision. Throughout the procedure, the patient's blood pressure, pulse, and oxygen saturations were monitored continuously. The colonoscopy was accomplished without difficulty. The patient tolerated the procedure well. Findings: On digital rectal examination there was normal rectal tone. There was a palpable large cavitary mass along the left circumference of the rectum that probably was very fixed with heaping margins and cavitation in the center. This was 5 to 6 cm in length. The colonoscope was introduced through the anal canal to the rectum and advanced to the cecum. The ileocecal valve and appendiceal orifice were identified. The scope was advanced a short distance into the ileum which appeared grossly normal. The scope was then withdrawn into the colon. The cecum, ascending, transverse, descending and sigmoid colon were grossly normal. Within the rectum there was a large mass that encompassed more than half of the circumference of the left wall of the rectum and extended to the anal verge. There was cavitation of the mass with heaped margins. Multiple cold biopsies were taken from the margins and central crater. Impression: 1. Large rectal cavitary mass with heaped margins consistent with rectal cancer (5 to 6 cm hemiferential mass encompassing left lateral wall of rectum circumference to the anal verge) Plan: I will follow-up the biopsies and obtain CT scan of the abdomen and pelvis. I will make referral to colorectal surgery at the [facility]. I will discuss the findings with the patient and family.
[2025-01-31 12:13] VITALS: BP 104/54; PULSE 75; RESP 18; TEMP 36.2; O2SAT 96
[2025-01-31 12:23] VITALS: BP 109/67; PULSE 73; O2SAT 97
[2025-01-31 12:33] VITALS: BP 110/65; PULSE 71; O2SAT 96
[2025-01-31 12:43] VITALS: BP 134/70; PULSE 72; RESP 18; O2SAT 99
--- NOTE | 2025-01-31 12:52 | SUR.PHASEII ---
Oncology Nurse Navigator consult order placed. SUHAS Baxter made aware and will be in to see patient before discharge and provide patient and family with resources and paperwork.
--- NOTE | 2025-01-31 13:06 | SUR.PHASEII ---
SUHAS Ferris at bedside
[2025-01-31 13:34] LABS: Iron 60 ug/dL (49-181)
[2025-01-31 13:44] LABS: Total Iron Binding Capacity 343 ug/dL (261-462)
[2025-01-31 14:10] LABS: Ferritin 151 ng/ml (17.9-464)
[2025-02-01 12:15] LABS: CEA 1.1 ng/mL (0.0-4.7)
== END 2025-01-31 12:43 | disposition home or self-care (01) ==
PROVIDERS: PCP Family Medicine; Visit Provider Internal Medicine Gastroenterology
PROC: 0DJD8ZZ Inspection of Lower Intestinal Tract, Via Natural or Artificial Opening Endoscopic (ICD-10-PCS; CPT 45378; principal; 2025-01-31 11:30)
DX: C18.9 Malignant neoplasm of colon, unspecified (principal); E78.5 Hyperlipidemia, unspecified; Z79.899 Other long term (current) drug therapy
CPT/HCPCS: 45380; 36415; 82378; 82728; 83540; 83550; J2003; J2704; J7120

== ENCOUNTER 2025-02-14 19:08 | Outpatient (CLI) | payer OTHER, SELFPAY ==
--- OUTSIDE RECORDS SUMMARY | 2025-02-05 11:00 | XMS_ITS | Encounter Summary ---
Author Organization [facility] Address [address] [place] [address] Care Team Providers Care Wrecking Car Driver Name Role Phone Tejal Saeed APRN Primary Care Provider [phone] Reason for Referral * Imaging (Routine) - Closed Specialty Diagnoses / Procedures Referred By Contac t Referred To Contact Radiology Diagnoses Malignant neoplasm of rectum (CMS/HCC) Procedures CT Chest w IV Contrast Con Sumner MD [address] [address] Phone: tel: fax: Referral ID Status Reason Start Date Expiration Date Visits Re quested Visits Authorized [id number] Closed 02/05/2025 08/07/2026 1 1 * Imaging (Routine) - Closed Specialty Diagnoses / Procedures Referred By Contac t Referred To Contact Radiology Diagnoses Malignant neoplasm of rectum (CMS/HCC) Procedures MR Pelvis w and wo IV Contrast Con Sumner MD [address] [address] Phone: tel: fax: Referral ID Status Reason Start Date Expiration Date Visits Re quested Visits Authorized [id number] Closed 02/05/2025 08/07/2026 1 1 Reason for Visit * Reason Comments Consult Rectal Mass * Consultation (Routine) - Closed Specialty Diagnoses / Procedures Referred By Contact Referred To Contact Surgical Oncology / Hematology and Oncology Diagnoses Rectal mass Skip Abbott MD [address] [place] [address] [place] [address] Phone: tel: fax:[phone] [facility] [address] [place] [address] Phone: tel: fax: Referral ID Status Reason Start Date Expiration Date V isits Requested Visits Authorized [id number] Closed Specialty Services Required 02/01/2025 08/03/2026 1 1 Encounter Details Date Type Department Care Team (Latest Contact Info) Description 02/05/2025 11:00 AM EDT Office Visit [facility] [address] [place] [address] Con Sumner MD [id number] [place] [address] Malignant neoplasm of rectum (CMS/HCC) (Primary Dx) Social History Tobacco Use Types Packs/Day Years Used Date Smoking Tobacco: Never Smokeless Tobacco: Never Tobacco Cessation:Counseling Given: Not Answered Alcohol Use Standard Drinks/Week Comments Yes 0 (1 standard drink = 0.6 oz pur e alcohol) Rarely PHQ-2 Answer Date Recorded Patient Health Questionnaire-2 Score 0 02/05/2025 PHQ-9 Answer Date Recorded Patient Health Questionnaire-9 Score 0 02/05/2025 Sex and Gender Information Value Date Recorded Sex Assigned at Not on file Legal Sex Male 6:14 PM EDT Gender Identity Not on file Sexual Orientation Not on file documented as of this encounter Last Filed Vital Signs Vital Sign Reading Time Taken Comments Blood Pressure 123/78 02/05/2025 10:20 AM EDT Pulse 86 02/05/2025 10:20 AM EDT Temperature 36.9 C (98.4 F) 02/05/2025 10:20 AM EDT Respiratory Rate 16 02/05/2025 10:20 AM EDT Oxygen Saturation 97% 02/05/2025 10:20 AM EDT Inhaled Oxygen Concentration - - Weight 125 kg (275 lb 2.2 oz) 02/05/2025 10:20 A M EDT Height 173.7 cm (5' 8.4 ) 02/05/2025 10:20 AM ED T Body Mass Index 41.35 02/05/2025 10:20 AM EDT documented in this encounter Functional Status * Over the past 2 weeks, how often have you been bothered by any of the following problems? Question Answer Date of Assessment Author Little interest or pleasure in doing things Not at all 02/05/2025 10:24 AM EDT Sugar Chi Feeling down, depressed, or hopeless Not at all 02/05/2025 10:24 AM EDT Sugar Chi Patient Health Questionnaire -2 Score 0 02/05/2025 10:24 AM EDT Sugar Chi * Question Answer Date of Assessment Author Trouble falling or staying a sleep, or sleeping too much Not at all 02/05/2025 10:24 AM EDT Sugar Chi Feeling tired or having raya le energy Not at all 02/05/2025 10:24 AM EDT Sugar Chi Poor appetite or overeating Not at all 02/05/2025 10 :24 AM EDT Sugar Chi Feeling bad about yourself - or that you are a failure or have let yourself or your family down Not at all 02/05/2025 10:24 AM EDT Huma Chi Trouble concentrating on thi ngs, such as reading the newspaper or watching television Not at all 02/05/2025 10:24 AM Sugar Aguilera Moving or speaking so slowly that other people could have noticed? Or the opposite - being so fidgety or restless that you have been moving around a lot more than usual. Not at all 02/05/2025 10:24 AM EDT Sugar Chi Thoughts that you would be b dwight off or hurting yourself in some way Not at all 02/05/2025 10:24 AM EDT Sugar Chi Patient Health Questionnaire -9 Score 0 02/05/2025 10:24 AM EDT Sugar Chi * If you checked off any problems on this questionnaire so far, Question Answer Date of Assessment Author How difficult have these problems made it for you to do your work, take care of things at home, or get along with other people? Not difficult at all 02/05/2025 10:24 AM EDT Sugar Chi documented as of this encounter Miscellaneous Notes * Progress Notes - Itzel Jo MD - 02/05/2025 11:00 AM EDT [facility] Colon and Rectal Surgery [facility] History and Physical Index Visit TRAVON Sumner MD [facility] Patient Name: Carlos Tripp Date of : 1970 (54 y.o. ) Date of Service: 02/05/25 Chief Complaint: Rectal mass Referring MD: Skip Abbott MD card grader: Tejal Saeed APRN Consulting MD: Yandy Sumner MD [facility] HISTORY OF PRESENT ILLNESS: Mr. Carlos Tripp is a 54 y.o. male seen today, 02/05/25, in consultation at the request ofSkip Abbott MD for diagnosis and treatment of rectal mass. Patient was noted to have a two week history of rectal bleeding and constipation in addition to intermittent nausea and vomiting. He had underwent CT A/P 01/08/2025 which demonstrated minimal colonic diverticulosis but no other findings including absence of lymphadenopathy. [facility] and was found to have a large rectal cavitary masswith heaped margins measuring approximately 5-6 cm in length, encompassing more than half of the circumference of the lumen and extending into the anal verge. This was his first colonoscopy. Multiplebiopsies were taken with pathology pending at time of dictation. Patient was subsequently referred to [facility] for evaluation. Today, patient confirms the above history. He states he has continued to have rectal bleeding whichhe states began a year ago but has progressed over the course of the last few months to be increasingly more frequent, including with every bowel movement. He states he notes blood in the toilet and on toilet paper with every bowel movement, but is unable to tell whether the blood is incorporated into his stool. Denies melena. He states he has also noted a change in his bowel habits with increasing difficulty having bowel movements. He now has to strain to have bowel movements with feelings of constipation. He endorses some pain with defecation. No incontinence. He states he has noted a 5 pound unintentional weight loss over the course of the last few weeks. He feels that he has had noted decreased energy levels over the course of the past few years. Medical history is significant for HLD. Denies HTN, DM, prior OH, seizure, stroke, prior DVT/PE. Not on blood thinners or steroids. Surgical history significant for laparoscopic cholecystectomy 20 years ago. Can independently perform ADLs. 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 Never smoker. Occasional alcohol. No substance use. He has no family history of colon cancer or any other cancers. Past 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: Past 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[1] Past Surgical History: Surgical History[2] Past Endoscopy History: Allergies: Allergies[3]. Social History: Social History Social History Narrative Not on file Patient is @EMPNAME@ Family History: Family History[4] Review of Systems Constitutional: Positive for activity change. Gastrointestinal: Positive for anal bleeding and constipation. : PHYSICAL EXAMINATION: Visit Vitals BP 123/78 (BP Location: Left arm, Patient Position: Sitting, BP Cuff Size: Large adult) Pulse 86 Temp 36.9 ??C (98.4 ??F) (Oral) Ht 1.737 m (5' 8.4 ) Wt 125 kg (275 lb 2.2 oz) SpO2 97% BMI 41.35 kg/m?? Physical Exam Constitutional: Appearance: Normal appearance. HENT: Head: Normocephalic and atraumatic. Right Ear: External ear normal. Left Ear: External ear normal. Nose: Nose normal. Mouth/Throat: Mouth: Mucous membranes are moist. Eyes: Extraocular Movements: Extraocular movements intact. Pupils: Pupils are equal, round, and reactive to light. Pulmonary: Effort: Pulmonary effort is normal. No respiratory distress. Abdominal: Comments: Soft, non distended and non tender. Obese abdomen. Well healed laparoscopic incision sites from prior lap tati. Musculoskeletal: General: Normal range of motion. Cervical back: Normal range of motion. Skin: General: Skin is warm. Neurological: Mental Status: He is alert. Psychiatric: Mood and Affect: Mood normal. Laboratory Evaluation: None Assessment and Plan: Mr. Carlos Tripp is a 54 y.o. male with PMHx significant for obesity (BMI 41) and HLD seentoday, 02/05/25, in consultation at the request of Skip Abbott MD for diagnosis and treatment of rectal mass. Patient recently presented with rectal bleeding in setting of change in bowel habitswith constipation and straining, prompting colonoscopy with findings of a 5-6 cm rectal mass. Multiple biopsies were taken with pathology pending at time of dictation. On review of CT A/P, there appears to be enlarged lymph nodes in the mesorectal space, concerning for lymph node involvement. Considering CT findings in addition to review of the colonoscopy report with concern for rectal malignancy, if the patient's pathology confirms malignancy, it would be at least clinical stage III disease. We will follow the patient's pathology report which will further guide treatment and management of this patient's mass. However, as patient's findings are concerning for malignancy, we will go ahead and refer the patient to Medical Oncology and Radiation Oncology for discussion of initiation of total neoadjuvant therapy. Additionally, we will plan to obtain CEA in addition to ordering an MRI pelvis and CT Chest to adequately stage and workup the patient's mass. We did discuss the patient's treatment options in detail. We discussed that the recommended treatment for clinical stage III disease includes total neoadjuvant therapy following by interval colonoscopy and imaging following treatment with a discussion of surgery at that point. We discussed that an alternative treatment option include proceeding with surgical resection of the patient's mass now wit hout neoadjuvant therapy; however, discussed that this would put the patient at twice the risk of recurrent disease than if he were to first have neoadjuvant therapy. We also discussed the option of not proceeding with any treatment, which would allow for the natural progression of cancer with progressive symptoms over time, eventually concluding in non-curable or untreatable disease. After in depth discussion, patient and family opt to pursue total neoadjuvant therapy at this time. Plan: - Follow up pathology report from recent colonoscopy - Referral to Medical Oncology and Radiation Oncology for total neoadjuvant therapy - Obtain CEA today - Obtain MRI Pelvis and CT Chest to complete staging workup - Will plan for interval imaging and colonoscopy following LACHELLE with discussion of surgical options pending response of treatment Itzel Jo MD General Surgery PGY2 [1] Past 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: Diagnosis Date Rectal mass [2] Past Surgical History: Procedure Laterality Date CHOLECYSTECTOMY [3] No Known Allergies [4] Family History Problem Relation Name Age of Onset Heart Problem Mother Heart attack Father Cancer Other Maternal Uncle Cosigned by Con Sumner MD at 02/05/2025 12:03 PM EDT Associated attestation - Con Sumner MD - 02/05/2025 12:03 PM EDT I saw and evaluated the patient with the resident/fellow. I discussed the case with the resident/fellow and agree with the findings and plan as documented. Mr. Tripp is a 54-year-old male with recent colonoscopy completed for rectal outlet bleeding and relatively new onset constipation. Rectal mass was identified in close proximity to the anal canal. Suspicious for rectal cancer. Ulcerated. Pathology pending. CT imaging was obtained as part of the evaluation with the assumption that the rectal mass would be positive for adenocarcinoma. Radiology interpretation indicated colonic diverticulosis. I have personally reviewed the CT imaging and there does seem to be the presence of mesenteric lymphadenopathy in the mesorectal space. Findings are consistent with assumed stage III rectal cancer. CEA has not been completed, yet blood work will be draw n today. MRI PELVIS and CT CHEST have not been completed. Overall, patient seems to be a candidate for total neoadjuvant therapy. PLAN FOLLOWS: Obtain MRI PELVIS and CT CHEST. Obtain CEA. Ambulatory referral to Medical Oncology and Radiation Oncology for total neoadjuvant therapy; induction chemotherapy. Present at [facility] L[facility] GI TUMOR BOARD. Return to clinic after completion of chemotherapy and after completion of chemoradiation. documented in this encounter Plan of Treatment Upcoming Encounters Date Type Department Care Team (Late st Contact Info) Description 2025 3:00 PM EDT Appointment [facility] [address] [id number] [place] [address] Km Wooten MD [address] [facility] [address] [place] [id number] documented as of this encounter Procedures Procedure Name Priority Date/Time Associated Diagnosis Comments CEA, SERUM Routine 02/05/2025 11:54 AM EDT Malignant neoplasm of rectum (CMS/HCC) documented in this encounter Results * CT Chest w IV Contrast (02/11/2025 4:46 PM EDT) Anatomical Region Laterality Modality Chest Computed Tomogra phy Impressions 02/12/2025 8:18 AM EDT Lymph nodes in the mediastinum which are at the upper limits of normal and are more numerous than typically expected. These are indeterminate. Consider PET CT versus lymph node sampling. Two and 3 mm right middle lobe nodules which are too small to definitively characterize and are nonspecific. Attention is recommended on follow-up imaging. CRITICAL RESULT: No. COMMUNICATION: Per this written report. Drafted by Lawrence Walters MD on 02/12/2025 8:14 AM Final report signed by Lawrence Walters MD on 02/12/2025 8:18 AM Narrative 02/12/2025 8:18 AM EDT CLINICAL INDICATION: Rectal cancer, staging TECHNIQUE: Multiple CT axial images were obtained from thoracic inlet through upper abdomen following administration of IV contrast, Omnipaque 300, 100 mL. Total DLP (Dose-Length Product): 248.27 mGy.cm. Please note: The reported value represents the total of one or more individual components during the CT acquisition on this date and at this time, and as such, the same value may appear in more than one CT report depending on the interpreting/reporting physicians. COMPARISON: None. FINDINGS: Lymph Nodes: Lymph nodes in the mediastinum are more numerous than typically expected. Multiple are upper limits of normal for size in short axis. An aortopulmonary window lymph node measures 12 mm in short axis (series 6 image 146). A subcarinal lymph node measures 13 mm in short axis (series 6 image 168). Thyroid: Normal Cardiovascular: Coronary artery calcification atherosclerosis. Trace pericardial fluid. No pulmonary embolus is evident. No great vessel stenosis. Lungs: There is a 2 mm nodule in the right middle lobe (series 5 image 46). There is a 3 mm nodule along the minor fissure the right middle lobe (series 5 image 52). Mild dependent atelectasis. Pleura: No pleural effusion or pneumothorax Musculoskeletal and Body Wall: Right shoulder osteoarthritis. Multilevel degenerative disc disease. Procedure Note Lawrence Walters MD - 02/12/2025 CLINICAL INDICATION: Rectal cancer, staging TECHNIQUE: Multiple CT axial images were obtained from thoracic inlet through upperabdomen following administration of IV contrast, Omnipaque 300, 100 mL. Total DLP (Dose-Length Product): 248.27 mGy.cm. Please note: The reportedvalue represents the total of one or more individual components during theCT acquisition on this date and at this time, and as such, the same valuemay appear in more than one CT report depending on theinterpreting/reporting physicians. COMPARISON: None. FINDINGS: Lymph Nodes: Lymph nodes in the mediastinum are more numerous thantypically expected. Multiple are upper limits of normal for size in shortaxis. An aortopulmonary window lymph node measures 12 mm in short axis(series 6 image 146). A subcarinal lymph node measures 13 mm in short axis(series 6 image 168). Thyroid: Normal Cardiovascular: Coronary artery calcification atherosclerosis. Tracepericardial fluid. No pulmonary embolus is evident. No great vesselstenosis. Lungs: There is a 2 mm nodule in the right middle lobe (series 5 image46). There is a 3 mm nodule along the minor fissure the right middle lobe(series 5 image 52). Mild dependent atelectasis. Pleura: No pleural effusion or pneumothorax Musculoskeletal and Body Wall: Right shoulder osteoarthritis. Multileveldegenerative disc disease. IMPRESSION: Lymph nodes in the mediastinum which are at the upper limits of normal andare more numerous than typically expected. These are indeterminate.Consider PET CT versus lymph node sampling. Two and 3 mm right middle lobe nodules which are too small to definitivelycharacterize and are nonspecific. Attention is recommended on follow-upimaging. CRITICAL RESULT: No. COMMUNICATION: Per this written report. Drafted by Lawrence Walters MD on 02/12/2025 8:14 AM Final report signed by Lawrence Walters MD on 02/12/2025 8:18 AM Con Sumner MD IMG CT PROCEDURES Final Result * MR Pelvis w and wo IV Contrast (02/11/2025 4:22 PM EDT) Anatomical Region Laterality Modality Abdomen Magnetic Resonan ce Impressions 02/12/2025 1:00 PM EDT Stage: MR-T category T3b; N category N+. Short axis 5-9 mm and at least 2 morphologic criteria. Criteria noted are round and T2 hypointense lymph nodes. MRF: Clear. Tumor margin >2mm from MRF. Sphincter involvement: Absent. Suspicious extra mesorectal lymph nodes: No. EMVI: No. CRITICAL RESULT: No. COMMUNICATION: Per this written report. By electronically signing this report, I, the attending physician, attest that I have personally reviewed the images/data for the above examination(s) and agree with the final edited report. Drafted by Ivonne Coombs MD on 02/12/2025 9:31 AM Final report signed by Kimberlyn Saul MD on 02/12/2025 1:00 PM Narrative 02/12/2025 1:00 PM EDT CLINICAL INDICATION: Rectal cancer. Initial MRI Staging Endoscopic Findings: Rectal mass was identified in close proximity to the anal canal. Suspicious for rectal cancer. Ulcerated. Digital Exam Findings: NA TECHNIQUE: Multiplanar multisequence imaging of the pelvis was performed on a 3T magnet with three plane high resolution T2 weighted, T1 LUCIEN, diffusion weighted and 3D gradient echo T1 weighted pre and post contrast fat suppressed VIBE sequences oriented to the plane of the rectum. 12.5 mL of Gadavist was administered. COMPARISON: Outside CT abdomen and pelvis 01/08/2025 FINDINGS: Primary Tumor: Distance to the anal verge: 4.5 cm Distance to the top of the sphincter complex/anorectal junction: 0 cm Relationship to anterior peritoneal reflection: Below Craniocaudal length: 5.6 cm Tumor location: Lower (0-5 cm) Morphology: Polypoid Mucinous: No mucin MR-T category1: T3b, Tumor penetrates 1-5 mm beyond muscularis propria Anal Sphincter Involvement: Absent. EMVI: No. Mesorectal Fascia (MRF): Shortest distance of tumor to mesorectal fascia (for T3 only): Not applicable. Tumor is at peritonealized portion of the rectum. Separate tumor deposit, lymph node or EMVI threatening or invading the MRF:No Distance of Lymph Node Tumor to MRF: Clear. Lymph node margin >2mm from MRF. Lymph Nodes: Mesorectal/superior rectal lymph nodes and/or tumor deposits: N+. Short axis 5-9 mm and at least 2 morphologic criteria. Criteria noted are round, T2 hypointense. They are present in both right and left mesorectal fascia. 8 mm and 7 mm(5:15) 6mm (5:22), 8 mm mesorectal (5:22). Suspicious extra mesorectal lymph nodes (i.e common iliac, external iliac, internal iliac, obturator, inguinal, retroperitoneal): No. Other Findings: Unremarkable Procedure Note Kimberlyn Saul MD - 02/12/2025 CLINICAL INDICATION: Rectal cancer. Initial MRI Staging Endoscopic Findings: Rectal mass was identified in close proximity to theanal canal. Suspicious for rectal cancer. Ulcerated. Digital Exam Findings: NA TECHNIQUE: Multiplanar multisequence imaging of the pelvis was performed on a 3Tmagnet with three plane high resolution T2 weighted, T1 LUCIEN, diffusionweighted and 3D gradient echo T1 weighted pre and post contrast fatsuppressed VIBE sequences oriented to the plane of the rectum. 12.5 mL ofGadavist was administered. COMPARISON: Outside CT abdomen and pelvis 01/08/2025 FINDINGS: Primary Tumor: Distance to the anal verge: 4.5 cm Distance to the top of the sphincter complex/anorectal junction: 0 cm Relationship to anterior peritoneal reflection: Below Craniocaudallength: 5.6 cm Tumor location: Lower (0-5 cm) Morphology:Polypoid Mucinous: No mucin MR-T category1: T3b, Tumor penetrates 1-5 mm beyond muscularis propria Anal Sphincter Involvement: Absent. EMVI: No. Mesorectal Fascia (MRF): Shortest distance of tumor to mesorectal fascia (for T3 only): Notapplicable. Tumor is at peritonealized portion of the rectum. Separate tumor deposit, lymph node or EMVI threatening or invading theMRF:No Distance of Lymph Node Tumor to MRF: Clear. Lymph node margin >2mm fromMRF. Lymph Nodes: Mesorectal/superior rectal lymph nodesand/or tumor deposits: N+. Shortaxis 5-9 mm and at least 2 morphologic criteria. Criteria noted are round,T2 hypointense. They are present in both right and left mesorectal fascia.8 mm and 7 mm(5:15) 6mm (5:22), 8 mm mesorectal (5:22). Suspicious extra mesorectal lymph nodes (i.e common iliac, external iliac,internal iliac, obturator, inguinal, retroperitoneal): No. Other Findings: Unremarkable IMPRESSION: Stage: MR-Tcategory T3b; N category N+. Short axis 5-9 mm and at least 2morphologic criteria. Criteria noted are round and T2 hypointense lymphnodes. MRF:Clear. Tumor margin >2mm from MRF. Sphincter involvement: Absent. Suspicious extra mesorectal lymph nodes: No. EMVI: No. CRITICAL RESULT: No. COMMUNICATION: Per this written report. By electronically signing this report, I, the attending physician, attestthat I have personally reviewed the images/data for the aboveexamination(s) and agree with the final edited report. Drafted by Ivonne Coombs MD on 02/12/2025 9:31 AM Final report signed by Kimberlyn Saul MD on 02/12/2025 1:00 PM Con Sumner MD IMG MRI PROCEDURES Final Resul t * CEA (02/05/2025 11:54 AM EDT) CEA, Serum <1.8 <4.0 ng/mL 02/05/2025 1:23 PM EDT [facility] Blood Venous blood specimen / Unknown Venipuncture / Unknown 02/05/2025 11:54 AM EDT 02/05/2025 12:43 PM EDT Narrative [facility] - 02/05/2025 1:23 PM EDT Normal range for smokers: < 5.5 ng/ml Normal range for non-smokers: <=4.0 ng/ml Performed by Maged electrochemiluminescent immunoassay. Results obtained with different test methods or kits cannot be used interchangeably. us Con Sumner MD LAB BLOOD ORDERABLES Final Res ult [facility] [address] [place] [address] documented in this encounter Visit Diagnoses Diagnosis Malignant neoplasm of rectum (CMS/HCC)- Primary Malignant neoplasm of rectum Malignant neoplasm of rectum (CMS/HCC) Malignant neoplasm of rectum Malignant neoplasm of rectum (CMS/HCC) Malignant neoplasm of rectum documented in this encounter Additional Health Concerns Assessment Noted Time PHQ-9 Depression Total Score: 0 02/06/20 25 10:24 AM EDT A fall risk assessment has been complete d for the patient 02/05/2025 10:24 AM EDT A Body Mass Index follow-up plan has been documented for the patient 02/05/2025 12:03 PM EDT documented as of this encounter Care Teams Wrecking Car Driver Relationship Specialty Start Date End Date Tejal Saeed APRN [address] [place] [address] PCP - General 11/07/20 documented as of this encounter
--- OUTSIDE RECORDS SUMMARY | 2025-02-11 15:04 | XMS_ITS | Encounter Summary ---
Author Organization [facility] Address [address] [place] [address] Care Team Providers Care Entry Level Lab Technician Name Role Phone Tejal Saeed APRN Primary Care Provider [phone] Reason for Referral * Imaging (Routine) - Closed Specialty Diagnoses / Procedures Referred By Alice maria Referred To Contact Radiology Diagnoses Malignant neoplasm of rectum (CMS/HCC) Procedures MR Pelvis w and wo IV Contrast Con Sumner MD [address] [address] Phone: tel: fax: Referral ID Status Reason Start Date Expiration Date Visits Re quested Visits Authorized [id number] Closed 02/05/2025 08/07/2026 1 1 Reason for Visit * Imaging (Routine) - Closed Specialty Diagnoses / Procedures Referred By Alice maria Referred To Contact Radiology Diagnoses Malignant neoplasm of rectum (CMS/HCC) Procedures MR Pelvis w and wo IV Contrast Con Sumner MD [address] [address] Phone: tel: fax: Referral ID Status Reason Start Date Expiration Date Visits Re quested Visits Authorized [id number] Closed 02/05/2025 08/07/2026 1 1 Encounter Details Date Type Department Care Team (Latest Contact Info) Description 02/11/2025 3:04 PM EDT - 02/11/2025 4:33 PM EDT Hospital Encounter [facility] [address] [place] [address] Malignant neoplasm of rectum (CMS/HCC) Discharge Disposition: Home or Self Care Social History Tobacco Use Types Packs/Day Years Used Date Smoking Tobacco: Never Smokeless Tobacco: Never Alcohol Use Standard Drinks/Week Comments Yes 0 [...] on file documented as of this encounter Medications at Time of Discharge atorvastatin (Lipitor) 20 MG tablet Take 1 tablet by mouth daily. 01/11/2025 DOXYCYCLINE MONOHYDRATE PO Take 100 mg by mouth 2 times a day. hydrocortisone (Anusol-HC) 25 MG suppository Insert 1 suppository into the rectum 2 times a day. documented as of this encounter Miscellaneous Notes * Geo Pisano - 02/11/2025 4:22 PM EDT Images from the original note were not included. 1639 Caring for Yourself after Contrast Imaging If you had ORAL contrast: ? You can go back to your normal diet and activities as tolerated. ? Drink plenty of fluids, unless told otherwise. If you had IV contrast: ? You can go back to your normal diet and activities as tolerated. ? Drink plenty of fluids, unless told otherwise. ? Leave a bandage on the site for 30 minutes (where the IV was inserted or blood was drawn). If you had Intravesical (bladder) contrast: ? Return to normal diet and activity. What you need to know about delayed reaction to IV contrast What is IV Contrast? ? Contrast is a dye that is put into your body through an IV. ? It is used for imaging scans such as CT scans and MRIs. ? The contrast makes blood vessels, organs and other parts of your body show up better on the scan. What do I need to do after IV contrast? ? Drink lots of fluids. This will help flush the contrast out of your system. ? Drink 2-3 extra glasses or bottles of water within 4 hours of your scan. What is a contrast reaction? ? A contrast reaction is a bad side effect from the contrast dye. ? It is rare but it does happen. ? They can be mild - such as sneezing, itching, or hives. ? They can be severe - such as trouble breathing, throat swelling, and irregular heart beat. When do these reactions happen? ? They often happen right after the contrast is injected. ? Some happen hours after going home. Go to the nearest Emergency Department right away if you have any of these symptoms after you leavethe clinic or hospital. ? Sneezing ? Itching in your mouth, throat, eyes, ears, or skin ? Rash or hives ? Throwing up or stomach sickness ? High heart rate or ?racing? of your heart ? Feeling dizzy or woozy ? Feeling short of breath or like you can?t take a deep breath ? Feeling very anxious for no other reason It is very important that these reactions be treated. Tell the doctor or nurse that you are having a reaction to IV contrast dye. Do not ignore any sign of a reaction! All reactions must be assessed by a doctor. Call 911 if you are alone and your reaction is more than mild sneezing or itching. If you have a mild reaction, call to speak with a Radiologist, explain that you havehad a contrast reaction, as this needs to be added to your medical record. documented in this encounter Plan of Treatment Upcoming Encounters Date Type Department Care Team (Late st Contact Info) Description 2025 3:00 PM EDT Appointment [facility] [address] [facility]. [id number] [place] [address] Km Wooten MD [address] [facility] [address] [place] [address] documented as of this encounter Procedures Procedure Name Priority Date/Time Associated Diagnosis Comments MR PELVIS W AND WO IV CONTRAST Routine 02/11/2025 4:22 PM EDT Malignant neoplasm of rectum (CMS/HCC) documented in this encounter Results * MR Pelvis w and wo IV [...] signing this report, I, the attending physician, alex I have personally reviewed the images/data for the aboveexamination(s) and agree with the final edited report. Drafted by Ivonne Coombs MD on 02/12/2025 9:31 AM Final report signed by Kimberlyn Saul MD on 02/12/2025 1:00 PM Con Sumner MD IMG MRI PROCEDURES Final Resul t documented in this encounter Visit Diagnoses Diagnosis Malignant neoplasm of rectum (CMS/HCC) Malignant neoplasm of rectum documented in this encounter Administered Medications Inactive Administered Medications - up to 3 most recent administrations Medication Order MAR Action Action Date Dose Rate Site gadobutrol (Gadavist) injection 12.5 mL 12.5 mL (0.1 mL/kg 125 kg), Intravenous, Once in imaging, 1 dose, Starting on Tue02/11/25 at 1524, Until Tue02/11/25 at 1634, Routine, Imaging Protocol Orders Given 02/11/2025 4:34 PM EDT 12.5 mL documented in this encounter Additional Health Concerns Assessment Noted Time PHQ-9 Depression Total Score: 0 02/06/20 10:24 AM EDT A fall risk assessment has been complete d for the patient 02/05/2025 10:24 AM EDT A Body Mass Index follow-up plan has been documented for the patient 02/05/2025 12:03 PM EDT documented as of this encounter Care Teams Entry Level Lab Technician Relationship Specialty Start Date End Date Tejal Saeed APRN [address] [place] [address] PCP - General 11/07/20 documented as of this encounter
--- OUTSIDE RECORDS SUMMARY | 2025-02-11 16:34 | XMS_ITS | Encounter Summary ---
Author Organization [facility] Address [address] [place] [address] Care Team Providers Care International Controller Name Role Phone Tejal Saeed APRN Primary Care Provider [phone] [phone] Reason for Referral * Imaging (Routine) - Closed Specialty Diagnoses / Procedures Referred By Alice maria Referred To Contact Radiology Diagnoses Malignant neoplasm of rectum (CMS/HCC) Procedures CT Chest w IV Contrast Con Sumner MD [address] [address] Phone: tel: fax: Referral ID Status Reason Start Date Expiration Date Visits Re quested Visits Authorized [id number] Closed 02/05/2025 08/07/2026 1 1 Reason for Visit * Imaging (Routine) - Closed Specialty Diagnoses / Procedures Referred By Alice maria Referred To Contact Radiology Diagnoses Malignant neoplasm of rectum (CMS/HCC) Procedures CT Chest w IV Contrast Con Sumner MD [address] [address] Phone: tel: fax: Referral ID Status Reason Start Date Expiration Date Visits Re quested Visits Authorized [id number] Closed 02/05/2025 08/07/2026 1 1 Encounter Details Date Type Department Care Team (Latest Contact Info) Description 02/11/2025 4:34 PM EDT - 02/11/2025 11:59 PM EDT Hospital Encounter [facility]iology [address] [place] [address] Malignant neoplasm of rectum (CMS/HCC) Discharge Disposition: [...] EDT Appointment [facility] [id number] [place] [address] Km Wooten MD [address] [place] [address] documented as of this encounter Procedures Procedure [...] documented as of this encounter Care Teams International Controller Relationship Specialty Start Date End Date Tejal Saeed APRN [facility] [place] [address] PCP - General 11/07/20 documented as of this encounter
--- OUTSIDE RECORDS SUMMARY | 2025-02-14 19:11 | XMS_ITS | Encounter Summary ---
Author Organization [facility] Address [address] [place] [address] Care Team Providers Care Service Observer Chief Name Role Phone Tejal Saeed APRN Primary Care Provider [phone] Km Wooten MD Unavailable [phone] Encounter Details Date Type Department Care Team (Late st Contact Info) Description 01/08/2025 Orders Only External Location [address] [place] [address] Provider, External Social History Tobacco Use Types Packs/Day Years Used Date Smoking Tobacco: Never Assessed Sex and Gender Information Value Date Recorded Sex Assigned at Not on file Legal Sex Male 6:14 PM EDT Gender Identity Not on file Sexual Orientation Not on file documented as of this encounter Plan of Treatment Upcoming Encounters Date Type Department Care Team (Late st Contact Info) Description 2025 3:00 PM EDT Appointment [facility] [address] [facility]. [id number] [place] [address] Km Wooten MD [address] [facility] [address] [place] [address] documented as of this encounter Procedures Procedure Name Priority Date/Time Associated Diagnosis Comments CT OUTSIDE IMAGES 01/08/2025 8:49 PM EDT documented in this encounter Results * CT OUTSIDE IMAGES (01/08/2025 8:49 PM EDT) Anatomical Region Laterality Modality Computed Tomogra phy 01/08/2025 8:49 PM EDT us External Provider IMG CT PROCEDURES Final Result documented in this encounter Visit Diagnoses Not on filedocumented in this encounter Care Teams Service Observer Chief Relationship Specialty Start Date End Date Tejal Saeed APRN [address] [place] [address] PCP - General 11/07/20 Km Wooten MD [address] [place] [address] [address] [place] [address] Consulting Physician Radiation Oncology 02/14/25 documented as of this encounter
--- OUTSIDE RECORDS SUMMARY | 2025-02-14 19:11 | XMS_ITS | Encounter Summary ---
Author Organization [facility] Address [address] [place] [address] Care Team Providers Care Inspector Golf Ball Name Role Phone Tejal Saeed APRN Primary Care Provider [phone] Km Wooten MD Unavailable [phone] Reason for Referral * Consultation (Routine) - Authorized Specialty Diagnoses / Procedures Referred By Alice maria Referred To Contact Radiation Oncology Diagnoses Malignant neoplasm of rectum (CMS/HCC) Con Sumner MD [address] [address] Phone: tel: fax: [address] [address] Phone: tel: fax: Referral ID Status Reason Start Date Expiration Date Visits Requested Visits Authorized [id number] Authorized Specialty Services Required 02/14/2025 08/16/2026 1 1 Scheduling Instructions Rectal cancer - needs total neoadjuvant therapy. Schedule radiation oncology at [facility] Scheduling medical oncology with Dr. Kaleb Bill at [facility]. * Consultation (Routine) - Authorized Specialty Diagnoses / Procedures Referred By Alice maria Referred To Contact Medical Oncology Diagnoses Malignant neoplasm of rectum (CMS/HCC) Con Sumner MD [address] [address] Phone: tel: fax: Referral ID Status Reason Start Date Expiration Date Visits Requested Visits Authorized [id number] Authorized Specialty Services Required 02/14/2025 08/16/2026 1 1 Scheduling Instructions Rectal Cancer - needs total neoadjuvant therapy. Schedule medical oncology with Dr.Michael Bill at [facility] [phone]. Encounter Details Date Type Department Care Team (Latest Contact Info) Description 02/14/2025 Orders Only [facility] [address] [place] [address] Con Sumner MD [address] [facility] [address] [place] [address] Malignant neoplasm of rectum (CMS/HCC) [...] CC Radiation [address] [facility]. [id number] [place] [address] Km Wooten MD 800 [facility] [address] [place] [address] Scheduled Referrals Name Type Priority Associated Diagnoses Order Schedule Ambulatory referral to Hematology Oncology/Medical Oncology Outpatient Referral Routine Malignant neoplasm of rectum (CMS/HCC) Expected: 02/21/2025, Expires: 08/18/2026 Ambulatory referral to Radiation Oncology Outpatient Referral Routine Malignant neoplasm of rectum (CMS/HCC) Expected: 02/21/2025, Expires: 08/18/2026 documented as of this encounter Visit Diagnoses Diagnosis Malignant neoplasm of rectum (CMS/HCC)- Primary Malignant neoplasm of rectum documented in this encounter Additional Health Concerns Assessment Noted Time PHQ-9 Depression Total Score: 0 02/06/20 10:24 AM EDT A fall risk assessment has been complete d for the patient 02/05/2025 10:24 AM EDT A Body Mass Index follow-up plan has been documented for the patient 02/05/2025 12:03 PM EDT documented as of this encounter Care Teams Inspector Golf Ball Relationship Specialty Start Date End Date Tejal Saeed APRN [address] [place] [address] PCP - General 11/07/20 Km Wooten MD 800 [facility] [address] [place] [address] Consulting Physician Radiation Oncology 02/14/25 documented as of this encounter
--- OUTSIDE RECORDS SUMMARY | 2025-02-14 19:11 | XMS_ITS | Clinical Summary ---
Author Organization [facility] Address [address] [place] [address] Care Team Providers Care Card Processing Clerk Name Role Phone Tejal Saeed APRN Primary Care Provider [phone] Km Wooten MD Unavailable [phone] Allergies No known active allergies Medications atorvastatin (Lipitor) 20 MG tablet Take 1 tablet by mouth daily. Active DOXYCYCLINE MONOHYDRATE PO Take 100 mg by mouth 2 times a day. Active hydrocortisone (Anusol-HC) 25 MG suppository Insert 1 suppository into the rectum 2 times a day. Active Encounters Date Type Department Care Team Description 02/14/2025 Orders Only [facility] [address] [place] [address] Con Sumner MD 02/14/2025 Telephone [facility] Radiation 800 [facility] [id number] [place] [address] Km Wooten MD 02/14/2025 Orders Only [facility] [address] [place] [address] Con Sumner MD Malignant neoplasm of rectum (CMS/HCC) (Primary Dx) 02/11/2025 4:34 PM EDT - 02/11/2025 11:59 PM EDT Hospital Encounter [facility] [address] [place] [address] Malignant neoplasm of rectum (CMS/HCC) Discharge Disposition: Home or Self Care 02/11/2025 3:04 PM EDT - 02/11/2025 4:33 PM EDT Hospital Encounter [facility] [address] [place] [address] Malignant neoplasm of rectum (CMS/HCC) Discharge Disposition: Home or Self Care 02/11/2025 Travel 02/08/2025 Lab Requisition [facility] [address] [place] [address] Con Sumner MD Hemorrhage of anus and rectum 02/05/2025 11:00 AM EDT Office Visit [facility] [address] [place] [address] Con Sumner MD Malignant neoplasm of rectum (CMS/HCC) (Primary Dx) 02/05/2025 Travel 01/08/2025 Orders Only External Location [address] [place] [address] Provider, External 01/08/2025 Orders Only External Location [address] [place] [address] Provider, External 01/08/2025 Orders Only External Location [address] [place] [address] Provider, External from Last 3 Months Family History 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 Relation Name Comments Heart attack Father Heart Problem Mother Cancer Other Maternal Uncle Relation Name Status Comments Father Mother Other Maternal Uncle Social History Tobacco Use Types Packs/Day Years [...] on file Sexual Orientation Not on file Last Filed Vital Signs Vital Sign Reading [...] Mass Index 41.35 02/05/2025 10:20 AM EDT Plan of Treatment Upcoming Encounters Date Type Department Care Team (Late st Contact Info) Description 2025 3:00 PM EDT Appointment [facility] [address] [place] [address] Km Wooten MD [address] [place] [address] Health Maintenance Due Date Last Done Comments [facility]-HIV Screening 1971 [facility]-Hepatitis C Screening 1971 [facility]-Infant/Child/Adol SDOH Screenings 1971 [facility]- SDOH Screenings 1989 [facility]-Adult SDOH Screenings 1989 [facility]-Hepatitis B Vaccines (1 of 3 - 19+ 3-dose series) 1990 [facility]-Pneumococcal Vaccine: 50 + Years (1 of 2 - PCV) 1990 CT Colonography 02/20/2016 Colonoscopy 02/20/2016 FIT-DNA 02/20/2016 FIT 02/20/2016 FOBT 02/20/2016 Sigmoidoscopy 02/20/2016 [facility]-Colorectal Cancer Screening 02/20/2016 [id number] Vaccine ( season) 2024 06/24/2021, 11/08/2020, 10/11/2020 [facility]-Influenza Vaccine (#1) 2025 05/16/2021 [facility]-Depression Screening 02/05/2026 025, 02/05/2025 [facility]-DTaP,Tdap,and Td Vaccine s (2 - Td or Tdap) 04/18/2031 04/18/2021 [facility]-Zoster Vaccines Completed 07/27/2021, 05/16/2021 [facility]-Obesity Intervention Completed 02/05/2025 HPV Vaccines Aged Out No longer eligi ble based on patient's age to complete this topic [facility]-HIB Vaccines Aged Out No longer e ligible based on patient's age to complete this topic [facility]-Hepatitis A Vaccines Aged Out No longer eligible based on patient's age to complete this topic [facility]-IPV Vaccines Aged Out No longer e ligible based on patient's age to complete this topic [facility]-Rotavirus Vaccines Aged Out No lo nger eligible based on patient's age to complete this topic Procedures Procedure Name Priority Date/Time Associated Diagnosis Comments CT CHEST W IV CONTRAST Routine 02/11/2025 4:46 PM EDT Malignant neoplasm of rectum (CMS/HCC) MR PELVIS W AND WO IV CONTRAST Routine 02/11/2025 4:22 PM EDT Malignant neoplasm of rectum (CMS/HCC) SURGICAL PATHOLOGY CONSULT Routine 02/08/2025 11:05 AM EDT Hemorrhage of anus and rectum CEA, SERUM Routine 02/05/2025 11:54 AM EDT Malignant neoplasm of rectum (CMS/HCC) CT OUTSIDE IMAGES 01/08/2025 8:[address] OUTSIDE IMAGES 01/08/2025 8:4 9 PM EDT US OUTSIDE IMAGES 01/08/2025 8:4 3 PM EDT from Last 3 Months Results * CT Chest w IV Contrast [...] IMG MRI PROCEDURES Final Resul t * Surgical Pathology Consult (02/08/2025 11:05 AM EDT) Case Report Sugical Pathology Consult Case: [id number] Authorizing Provider: Con Sumner MD Collected: 02/08/2025 110 Ordering Location: [facility] Lab Received: 02/08/2025 1105 Pathologist: Luis Weiner DO Specimen: Colon, [id number] 02/10/2025 12:09 PM EDT [facility] Final Diagnosis DESIGNATED COLON, RECTUM; MASS, BIOPSY (OUTSIDE SLIDES; [id number]; 02/05/2025): - MODERATELY DIFFERENTIATED ADENOCARCINOMA (SEE COMMENT). - MMR BY IHC (PER REPORT): - RETAINED NUCLEAR EXPRESSION OF ALL FOUR PROTEINS (MLH1, PMS2, MSH2 AND MSH6). 02/10/2025 12:09 PM EDT [facility] at 1209 EDT Comment Correlation with endoscopic findings and imaging is recommended to determine site of tumor (colon vs rectum) given specimen designation. 02/10/2025 12:09 PM EDT [facility] Clinical Information K62.5 - Hemorrhage of anus and rectum [ICD-10-CM] 02/10/2025 12:09 PM EDT [facility] Gross Description A. [id number] Received along with a corresponding pathology report from [facility] are 5 slide(s) labeled outside case: [id number] collected on 01/31/2025. 02/10/2025 12:09 PM EDT [facility] Note: A resident was involved in the service. I attest I examined the relevant preparations for the specimens and confirmed the diagnosis or interpretation. 02/10/2025 12:09 PM EDT [facility] Tissue Colon structure / Unknown 02/08/2025 11:05 AM EDT 02/08/2025 11:05 AM EDT us Con Sumner MD LAB PATHOLOGY ORDERABLES Final Result Performing Organization Address City/[facility]/ZIP Co de Phone Number [facility] [address] [place] [address] * CEA (02/05/2025 11:54 AM EDT) CEA, Serum <1.8 <4.0 ng/mL 02/05/2025 1:23 PM EDT [facility] Blood Venous blood specimen / Unknown Venipuncture [...] MD LAB BLOOD ORDERABLES Final Res ult Performing Organization Address City/[facility]/ZIP Co de Phone Number [facility] [address] [place] [address] * CT OUTSIDE IMAGES (01/08/2025 8:49 PM EDT) Only the most recent of2 resultswithin the time period is included. Anatomical Region Laterality Modality Computed Tomogra phy 01/08/2025 8:49 PM EDT us External Provider IMG CT PROCEDURES Final Result * US OUTSIDE IMAGES (01/08/2025 8:43 PM EDT) Anatomical Region Laterality Modality Ultrasound 01/08/2025 8:43 PM EDT us External Provider IMG US PROCEDURES Final Result from Last 3 Months Insurance Care Teams Card Processing Clerk Relationship Specialty Start Date End Date Tejal Saeed APRN [address] [place] [address] PCP - General 11/07/20 Km Wooten MD [address] [facility] [address] [place] [address] Consulting Physician Radiation Oncology 02/14/25
--- OUTSIDE RECORDS SUMMARY | 2025-02-14 19:11 | XMS_ITS | Encounter Summary ---
Author Organization [facility] Address [address] [place] [address] Care Team Providers Care Nuclear Officer Name Role Phone Tejal Saeed APRN Primary Care Provider [phone] Km Wooten MD Unavailable [phone] Encounter Details Date Type Department Care Team (Late Contact Info) Description 02/14/2025 Orders Only [facility] [address] [place] [address] Con Sumner MD [address] [facility] [address] [place] [address] Social History Tobacco Use Types Packs/Day Years [...] Encounters Date Type Department Care Team (Late Contact Info) Description 2025 3:00 PM EDT Appointment [facility] Radiation [address] [facility]. [id number] [place] [address] Km Wooten MD [address] [facility] [address] [place] [address] documented as of this encounter Visit Diagnoses Not on filedocumented in this encounter Additional Health Concerns Assessment Noted Time PHQ-9 Depression Total Score: 0 02/06/20 10:24 AM EDT A fall risk assessment has been complete d for the patient 02/05/2025 10:24 AM EDT A Body Mass Index follow-up plan has been documented for the patient 02/05/2025 12:03 PM EDT documented as of this encounter Care Teams Nuclear Officer Relationship Specialty Start Date End Date Tejal Saeed APRN [address] [place] [address] PCP - General 11/07/20 Km Wooten MD 800 [facility] [address] [place] [address] Consulting Physician Radiation Oncology 02/14/25 documented as of this encounter
--- OUTSIDE RECORDS SUMMARY | 2025-02-14 19:11 | XMS_ITS | Encounter Summary ---
Author Organization [facility] Address [address] [place] [address] Care Team Providers Care Fine Unhairer Name Role Phone Tjeal Saeed APRN Primary Care Provider [phone] Km Wooten MD Unavailable [phone] Encounter Details Date Type Department Care Team (Late st Contact Info) Description 01/08/2025 Orders Only External Location [address] [place] [address] Provider, External Social History Tobacco Use Types [...] PM EDT Appointment [facility] Radiation [address] [facility]. [address] [place] [address] Km Wooten MD [address] [facility] [address] [place] [address] documented as of this encounter Procedures Procedure Name Priority Date/Time Associated Diagnosis Comments US OUTSIDE IMAGES 01/08/2025 8:43 PM EDT documented in this encounter Results * US OUTSIDE IMAGES (01/08/2025 8:43 PM EDT) Anatomical Region Laterality Modality Ultrasound 01/08/2025 8:43 PM EDT us External Provider IMG US PROCEDURES Final Result documented in this encounter Visit Diagnoses Not on filedocumented in this encounter Care Teams Fine Unhairer Relationship Specialty Start Date End Date Tejal Saeed APRN [address] [place] [address] PCP - General 11/07/20 Km Wooten MD [address] [place], [place] [address]D [place] [address] Consulting Physician Radiation Oncology 02/14/25 documented as of this encounter
--- OUTSIDE RECORDS SUMMARY | 2025-02-14 19:11 | XMS_ITS | Encounter Summary ---
Author Organization [facility] Address [address] [place] [address] Care Team Providers Care Activities Officer Name Role Phone Tejal Saeed APRN Primary Care Provider [phone] Km Wooten MD Unavailable [phone] Encounter Details Date Type Department Care Team (Late st Contact Info) Description 02/14/2025 Telephone [facility]iation [id number] [place] [address] Km Wooten MD [address] [place] [address] Social History Tobacco Use Types Packs/Day Years [...] on file documented as of this encounter Miscellaneous Notes * Telephone Encounter - Octavio Wang - 02/14/2025 10:01 AM EDT Called and spoke w pt and scheduled consult per WQ. Pt aware of information and thanked me for calling. documented in this encounter Plan of Treatment Upcoming Encounters Date Type Department Care Team (Late st Contact Info) Description 2025 3:00 PM EDT Appointment [facility] Radiation 800 [facility]. [id number] [place] [address] Km Wooten MD [address] [facility] [address] [place] [phone] documented as of this encounter Visit Diagnoses [...] documented as of this encounter Care Teams Activities Officer Relationship Specialty Start Date End Date Tejal Saeed APRN [address] [place] [address] PCP - General 11/07/20 Km Wooten MD [address] [phone] Consulting Physician Radiation Oncology 02/14/25 documented as of this encounter
--- OUTSIDE RECORDS SUMMARY | 2025-02-14 19:12 | XMS_ITS | Encounter Summary ---
Author Organization [facility] Address [address] [place] [address] Care Team Providers Care Roads Superintendent Name Role Phone Tejal Saeed APRN Primary Care Provider [phone] Km Wooten MD Unavailable [phone] Encounter Details Date Type Department Care Team (Late Contact Info) Description 02/08/2025 Lab Requisition [facility] [address] [place] [address] Con Sumner MD [address] [facility] [address] [place] [address] Hemorrhage of anus and rectum Social History Tobacco Use Types Packs/Day Years [...] PM EDT Appointment [facility] Radiation [address] [facility]. [address] [place] [address] Km Wooten MD [address] [facility] [address] [place] [address] documented as of this encounter Procedures Procedure Name Priority Date/Time Associated Diagnosis Comments SURGICAL PATHOLOGY CONSULT Routine 02/08/2025 11:05 AM EDT Hemorrhage of anus and rectum documented in this encounter Results * Surgical Pathology Consult (02/08/2025 11:05 AM EDT) Case Report Sugical Pathology Consult Case: [id number] Authorizing Provider: Con Sumner MD Collected: 02/08/20251104 Ordering Location: [facility] Lab Received: 02/08/2025 110 Pathologist: Luis Weiner DO Specimen: Colon, [id number] 02/10/2025 12:09 PM EDT [facility] Final Diagnosis DESIGNATED COLON, RECTUM; MASS, BIOPSY (OUTSIDE SLIDES; [id number]; 02/05/2025): - MODERATELY DIFFERENTIATED ADENOCARCINOMA (SEE COMMENT). - MMR BY IHC (PER REPORT): - RETAINED NUCLEAR EXPRESSION OF ALL FOUR PROTEINS (MLH1, PMS2, MSH2 AND MSH6). 02/10/2025 12:09 PM EDT [facility] at 1209 EDT Comment Correlation with endoscopic findings and imaging is recommended to determine site of tumor (colon vs rectum) given specimen designation. 02/10/2025 12:09 PM EDT [facility] Clinical Information K62.5 - Hemorrhage of anus and rectum [ICD-10-CM] 02/10/2025 12:09 PM EDT [facility] Gross Description A. [id number] Received along with a corresponding pathology report from [facility] Laboratory are 5 slide(s) labeled outside case: [id number] collected on 01/31/2025. 02/10/2025 12:09 PM EDT [facility] Note: A resident was involved in the service. I attest I examined the relevant preparations for the specimens and confirmed the diagnosis or interpretation. 02/10/2025 12:09 PM EDT [facility] Tissue Colon structure / Unknown 02/08/2025 11:05 AM EDT 02/08/2025 11:05 AM EDT us Con Sumner MD LAB PATHOLOGY ORDERABLES Final Result [facility] [address] [place] [address] documented in this encounter Visit Diagnoses Diagnosis Hemorrhage of anus and rectum Hemorrhage of rectum and anus documented in this encounter Additional Health Concerns Assessment Noted Time PHQ-9 Depression Total Score: 0 02/06/20 10:24 AM EDT A fall risk assessment has been complete d for the patient 02/05/2025 10:24 AM EDT A Body Mass Index follow-up plan has been documented for the patient 02/05/2025 12:03 PM EDT documented as of this encounter Care Teams Roads Superintendent Relationship Specialty Start Date End Date Tejal Saeed APRN [address] [place] [address] PCP - General 11/07/20 Km Wooten MD [address] [facility] [address] [place] [address] Consulting Physician Radiation Oncology 02/14/25 documented as of this encounter
--- OUTSIDE RECORDS SUMMARY | 2025-02-14 19:12 | XMS_ITS | Encounter Summary ---
Author Organization [facility] Address [address] [place] [address] Care Team Providers Care Lecturer Of Portuguese Name Role Phone Tejal Saeed APRN Primary Care Provider [phone] Encounter Details Date Type Department Care Team (Latest Contact Info) Description 02/05/2025 Travel Social History Tobacco Use Types Packs/Day Years [...] on file documented as of this encounter Functional Status * Over the [...] [place] documented as of this encounter Plan of Treatment Upcoming Encounters Date Type Department Care Team (Late st Contact Info) Description 2025 3:00 PM EDT Appointment [facility] Radiation [address] [place] [address] Km Wooten MD [address] [place] [address] documented as of this encounter Visit Diagnoses [...] documented as of this encounter Care Teams Lecturer Of Portuguese Relationship Specialty Start Date End Date Tejal Saeed APRN [address] [place] [address] PCP - General 11/07/20 documented as of this encounter
--- OUTSIDE RECORDS SUMMARY | 2025-02-14 19:12 | XMS_ITS | Encounter Summary ---
Author Organization [facility] Address [address] [place] [address] Care Team Providers Care Director Product Name Role Phone Tejal Saeed APRN Primary Care Provider [phone] Encounter Details Date Type Department Care Team (Latest Contact Info) Description 02/11/2025 Travel Social History Tobacco Use Types Packs/Day [...] Appointment [facility] Radiation [address] [place] [address] Km Wooten MD [address] [place] [address] documented as of this encounter Visit Diagnoses [...] documented as of this encounter Care Teams Director Product Relationship Specialty Start Date End Date Tejal Saeed APRN [address] [place] [address] PCP - General 11/07/20 documented as of this encounter
--- OUTSIDE RECORDS SUMMARY | 2025-02-14 19:12 | XMS_ITS | Encounter Summary ---
Author Organization [facility] Address [address] [place] [address] Care Team Providers Care Boomswing Operator Name Role Phone Tejal Saeed APRN Primary Care Provider [phone] Km Wooten MD Unavailable [phone] Encounter Details Date Type Department Care Team (Late st Contact Info) Description 01/08/2025 Orders Only External Location [address] [place] [phone] Provider, External Social History Tobacco Use Types [...] EDT Appointment [facility] Radiation [address] [facility]. [address] [place] [address] Km Wooten MD [address] [facility] [address] [place] [address] documented as of this encounter Procedures Procedure [...] on filedocumented in this encounter Care Teams Boomswing Operator Relationship Specialty Start Date End Date Tejal Saeed APRN [address] [place] [address] PCP - General 11/07/20 Km Wooten MD [address] [place] [address] [address] [place] [address] Consulting Physician Radiation Oncology 02/14/25 documented as of this encounter
[2025-02-14 19:15] LABS: Coronavirus 19, PCR Not Detected (NotDetected); Influenza A, PCR Not Detected (NotDetected); Influenza B, PCR Not Detected (NotDetected)
== END 2025-02-14 23:59 | disposition home or self-care (01) ==
LOC: LAB.DROPOF 19:10
PROVIDERS: PCP Family Medicine; Visit Provider Family Medicine
DX: J02.9 Acute pharyngitis, unspecified (principal)
CPT/HCPCS: 87636

== ENCOUNTER 2025-02-20 15:09 | Outpatient (CLI) | payer OTHER, SELFPAY ==
--- OUTSIDE RECORDS SUMMARY | 2025-02-05 11:00 | XMS_ITS | Encounter Summary ---
Author Organization [facility] Address [address] [place] [address] Care Team Providers Care Insurance Examiner Name Role Phone Tejal Saeed APRN Primary Care Provider [phone] Reason for Referral * Imaging (Routine) - Closed Specialty Diagnoses / Procedures Referred By Contac t Referred To Contact Radiology Diagnoses Malignant neoplasm of rectum (CMS/HCC) Procedures CT Chest w IV Contrast Con Sumner MD [address] [address] Phone: tel: fax: Referral ID Status Reason Start Date Expiration Date Visits Re quested Visits Authorized [id number] Closed 02/05/2025 08/07/2026 1 1 * Imaging (Routine) - Closed Specialty Diagnoses / Procedures Referred By Contac t Referred To Contact Radiology Diagnoses Malignant neoplasm of rectum (CMS/HCC) Procedures MR Pelvis w and wo IV Contrast Con Sumner MD [address] [address] Phone: tel: fax: Referral ID Status Reason Start Date Expiration Date Visits Re quested Visits Authorized [id number] Closed 02/05/2025 08/07/2026 1 1 Reason for Visit * Reason Comments Consult Rectal Mass * Consultation (Routine) - Closed Specialty Diagnoses / Procedures Referred By Contact Referred To Contact Surgical Oncology / Hematology and Oncology Diagnoses Rectal mass Skip Abbott MD [address] [facility] [address] [place] [address] Phone: tel:[phone] fax:[phone] [facility] Multidisciplinary Oncology Clinic [address] [place] [address] Phone: tel: fax: Referral ID Status Reason Start Date Expiration Date V isits Requested Visits Authorized [id number] Closed Specialty Services Required 02/01/2025 08/03/2026 1 1 Encounter Details Date Type Department Care Team (Latest Contact Info) Description 02/05/2025 11:00 AM EDT Office Visit [facility] Multidisciplinary Oncology Clinic [address] [place] [address] Con Sumner MD [id number] [place] [address] Malignant neoplasm of rectum (CMS/HCC) (Primary Dx) [...] Jo MD - 02/05/2025 11:00 AM EDT [facility] Colon and Rectal Surgery [facility] History and Physical Index Visit TRAVON Sumner MD FACS FASCRS Patient Name: Carlos Tripp Date of : 1970 (54 y.o. ) Date of Service: 02/05/25 Chief Complaint: Rectal mass Referring MD: Skip Abbott MD cooker process cheese: Tejal Saeed APRN Consulting MD: Yandy Sumner [...] of lymphadenopathy. He subsequently [facility] on 01/31[facility]2025 and was found to have a large rectal cavitary masswith heaped margins measuring approximately 5-6 cm in length, encompassing more than half of the circumference of the lumen and extending into the anal verge. This was his first colonoscopy. Multiplebiopsies were taken with pathology pending at time of dictation. Patient was subsequently referred to [facility] for evaluation. Today, patient confirms [...] significant for HLD. Denies HTN, DM, prior [place], seizure, stroke, prior DVT/PE. Not on blood thinners or steroids. Surgical history significant for laparoscopic cholecystectomy 20 years ago. Can independently perform ADLs. 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 Present at [facility] LOWER GI TUMOR BOARD. Return to clinic after completion of chemotherapy and after completion of chemoradiation. documented in this encounter Plan of Treatment Upcoming Encounters Date Type Department Care Team (Late st Contact Info) Description 03/01/2025 9:00 AM EDT Appointment [facility] [address] [id number] [place] [address] Km Wooten MD [address] [facility] [address] [place] [address] 03/19/2025 9:30 AM EDT Consult [facility] Urology [address] [place] [address] Joel Aguila MD [address] [place] [address] documented as of this encounter Procedures Procedure [...] Lawrence Walters MD on 02/12/2025 8:18 AM us Con Sumner MD IMG CT PROCEDURES Final [...] ult [facility] [address] [place] [address] documented in this encounter Visit Diagnoses Diagnosis [...] documented as of this encounter Care Teams Insurance Examiner Relationship Specialty Start Date End Date Tejal Saeed APRN [address] [place] [address] PCP - General 11/07/20 documented as of this encounter
--- OUTSIDE RECORDS SUMMARY | 2025-02-11 15:04 | XMS_ITS | Encounter Summary ---
Author Organization [facility] Address [address] [id number] Care Team Providers Care Mixer Operator Hot Metal Name Role Phone Tejal Saeed APRN Primary Care Provider [phone] [phone] Reason for Referral * Imaging (Routine) - Closed Specialty Diagnoses / Procedures Referred By Contac t Referred To Contact Radiology Diagnoses Malignant neoplasm of rectum (CMS/HCC) Procedures MR Pelvis w and wo IV Contrast Con Sumner MD [address] [address] Phone: tel: fax: Referral ID Status Reason Start Date Expiration Date Visits Re quested Visits Authorized [id number] Closed 02/05/2025 08/07/2026 1 1 Reason for Visit * Imaging (Routine) - Closed Specialty Diagnoses / Procedures Referred By Alice maria Referred To Contact Radiology Diagnoses Malignant neoplasm of rectum (CMS/HCC) Procedures MR Pelvis w and wo IV Contrast Con Sumner MD [address] [place] [phone] Phone: tel: fax: Referral ID Status Reason Start Date Expiration Date Visits Re quested Visits Authorized [id number] Closed 02/05/2025 08/07/2026 1 1 Encounter Details Date Type Department Care Team (Latest Contact Info) Description 02/11/2025 3:04 PM EDT - 02/11/2025 4:33 PM EDT Hospital Encounter [facility] Radiology [address] [place] [address] Malignant neoplasm of rectum (CMS/HCC) Discharge Disposition: [...] AM EDT Appointment [facility] [address] [facility]. [id number] [place] [address] Km Wooten MD [address] [facility] [address] [place] [address] 03/19/2025 9:[address] [facility] Urology [address] [place] [address] Joel Aguila MD [address] [place] [address] documented as of this encounter Procedures Procedure [...] documented as of this encounter Care Teams Mixer Operator Hot Metal Relationship Specialty Start Date End Date Tejal Saeed APRN [facility] [place] [address] PCP - General 11/07/20 documented as of this encounter
--- OUTSIDE RECORDS SUMMARY | 2025-02-11 16:34 | XMS_ITS | Encounter Summary ---
Author Organization [facility] Address [address] [place] [address] Care Team Providers Care Office Clerk Assistant Name Role Phone Tejal Saeed APRN Primary Care Provider [phone] [phone] Reason for Referral * Imaging (Routine) - Closed Specialty Diagnoses / Procedures Referred By Alice maria Referred To Contact Radiology Diagnoses Malignant neoplasm of rectum (CMS/HCC) Procedures CT Chest w IV Contrast Con Sumner MD [address] [address] Phone: tel: fax: Referral ID Status Reason Start Date Expiration Date Visits Re quested Visits Authorized [id number] Closed 02/05/2025 08/07/2026 1 1 Reason for Visit * Imaging (Routine) - Closed Specialty Diagnoses / Procedures Referred By Alice maria Referred To Contact Radiology Diagnoses Malignant neoplasm of rectum (CMS/HCC) Procedures CT Chest w IV Contrast Con Sumner MD [address] [address] Phone: tel: fax: Referral ID Status Reason Start Date Expiration Date Visits Re quested Visits Authorized [id number] Closed 02/05/2025 08/07/2026 1 1 Encounter Details Date Type Department Care Team (Latest Contact Info) Description 02/11/2025 4:34 PM EDT - 02/11/2025 11:59 PM EDT Hospital Encounter [facility] Radiology [address] [place] [address] Malignant neoplasm of rectum (CMS/HCC) Discharge Disposition: [...] AM EDT Appointment [facility] [address] [facility]. [id number] [place] [address] Km Wooten MD [address] [facility] [address] [place] [address] 03/19/2025 9:30 AM EDT Consult [facility] Urology [address] [place] [address] Joel Aguila MD [address] [place] [address] documented as of this encounter Procedures Procedure [...] documented as of this encounter Care Teams Office Clerk Assistant Relationship Specialty Start Date End Date Tejal Saeed APRN [address] [place] [address] PCP - General 11/07/20 documented as of this encounter
--- OUTSIDE RECORDS SUMMARY | 2025-02-19 14:44 | XMS_ITS | Encounter Summary ---
Author Organization [facility] Address [address] [id number] Care Team Providers Care Hardwood Floor Sander Name Role Phone Tejal Saeed APRN Primary Care Provider [phone] Km Wooten MD Unavailable [phone] Reason for Referral * Radiation Therapy (Routine) - Pending Review Specialty Diagnoses / Procedures Referred By Contac t Referred To Contact Radiation Oncology Diagnoses Malignant neoplasm of rectum (CMS/HCC) Procedures Rad Onc Intent to Treat Rad Onc Intent to Treat Km Wooten MD [address] [address] Phone: tel: fax: [facility] Radiation [address] [facility] [id number] [place] [address] Phone: tel: fax: Referral ID Status Reason Start Date Expiration Date Visits Requested Visits Authorized [id number] Pending Review Perform Procedure 2025 08/21/2026 1 1 * Consultation (Routine) - Authorized Specialty Diagnoses / Procedures Referred By Contac t Referred To Contact Pulmonology Diagnoses Malignant neoplasm of rectum (CMS/HCC) Km Wooten MD [address] [address] Phone: tel: fax: [facility] [address] [place] [address] Phone: tel: fax: Referral ID Status Reason Start Date Expiration Date Visits Requested Visits Authorized [id number] Authorized Specialty Services Required 2025 08/21/2026 1 1 Scheduling Instructions Biopsy concerning mediastinal lymph nodes * Consultation (Routine) - Closed Specialty Diagnoses / Procedures Referred By Contac t Referred To Contact Radiation Oncology Diagnoses Malignant neoplasm of rectum (CMS/HCC) Con Sumner MD [address] [address] Phone: tel: fax: [facility] [address] [address] Phone: tel: fax: Referral ID Status Reason Start Date Expiration Date V isits Requested Visits Authorized [id number] Closed Specialty Services Required 02/14/2025 08/16/2026 1 1 Scheduling Instructions Rectal cancer - needs total neoadjuvant therapy. Schedule radiation oncology at [facility] Scheduling medical oncology with Dr. Kaleb Bill at [facility]. Reason for Visit * Reason Comments Consult * Consultation (Routine) - Closed Specialty Diagnoses / Procedures Referred By Contac t Referred To Contact Radiation Oncology Diagnoses Malignant neoplasm of rectum (CMS/HCC) Con Sumner MD [address] [address] Phone: tel: fax: [facility] Radiation [address] [address] Phone: tel: fax: Referral ID Status Reason Start Date Expiration Date V isits Requested Visits Authorized [id number] Closed Specialty Services Required 02/14/2025 08/16/2026 1 1 Encounter Details Date Type Department Care Team (Latest Contact Info) Description 2025 2:44 PM EDT Hospital Encounter [facility] Radiation [address] [place] [address] Km Wooten MD [address] [place] [address] Malignant neoplasm of rectum (CMS/HCC) (Primary Dx) [...] Sign Reading Time Taken Comments Blood Pressure 118/75 2025 2:59 PM EDT Pulse 80 2025 2:59 PM EDT Temperature - - Respiratory Rate 18 2025 2:59 PM EDT Oxygen Saturation 96% 2025 2:59 PM EDT Inhaled Oxygen Concentration - - Weight 126 kg (277 lb 1.9 oz) 2025 2:59 PM EDT Height - - Body Mass Index 41.64 02/05/2025 10:20 AM EDT documented in this encounter Functional Status * Over the past 2 weeks, how often have you been bothered by any of the following problems? Question Answer Date of Assessment Author Little interest or pleasure in doing things Not at all 2025 2:59 PM EDT Lissa Hanley Feeling down, depressed, or hopeless Not at all 2025 2:59 PM EDT Lissa Hanley Patient Health Questionnaire -2 Score 0 2025 2:59 PM EDT Hanley, Lissa A * Question Answer Date of Assessment Author Trouble falling or staying asleep, or sleeping too much Not at all 2025 2:59 PM Selena Angulo A Feeling tired or having raya le energy Not at all 2025 2:59 PM Lissa Angulo Poor appetite or overeating Not at all 2025 2: 59 PM Lissa Angulo A Feeling bad about yourself - or that you are a failure or have let yourself or your family down Not at all 2025 2:59 PM Lissa Crow A Trouble concentrating on thi ngs, such as reading the newspaper or watching television Not at all 2025 2:59 PM Lissa Angulo A Moving or speaking so slowly that other people could have noticed? Or the opposite - being so fidgety or restless that you have been moving around a lot more than usual. Not at all 2025 2:59 PM Lissa Angulo Thoughts that you would be b dwight off or hurting yourself in some way Not at all 2025 2:59 PM Lissa Angulo A Patient Health Questionnaire -9 Score 0 2025 2:59 PM Lissa Angulo A * Calculated C-SSRS Risk Score (Lifetime/Recent) Answer Date of Assessment Author No Risk Indicated 2025 2:59 PM Lissa Angulo A * If you checked off any problems on this questionnaire so far, Question Answer Date of Assessment Author How difficult have these problems made it for you to do your work, take care of things at home, or get along with other people? Not difficult at all 2025 2:59 PM Lissa Angulo A * Question Answer Date of Assessment Author 1. Wish to be (Past 1 Month) No 025 2:59 PM Lissa Angulo 2. Non-Specific Active Suici negar Thoughts (Past 1 Month) No 2025 2:59 PM Smiley Angulo A 6. 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 ECO PRIOR RADIATION THERAPY: None HISTORY OF PACEMAKER/DEFIBRILLATOR: None HISTORY OF AUTOIMMUNE DISEASE: None The patient has been counseled on tobacco cessation: Not Applicable REASON FOR CONSULTATION: Radiation Oncology was consulted to evaluate Carlos Tripp regarding the management for the above diagnosis. HISTORY OF PRESENT ILLNESS: Carlos Tripp is a 55 y.o. male with history of 4-5 year history of blood in his stool withrecent large volume episode prompting colonoscopy. 02/05/25 COLON, RECTUM; MASS, BIOPSY (OUTSIDE SLIDES; [id number]; 02/05/2025): - MODERATELY DIFFERENTIATED ADENOCARCINOMA (SEE COMMENT). - MMR BY IHC (PER REPORT): RETAINED NUCLEAR EXPRESSION OF ALL FOUR PROTEINS (MLH1, PMS2, MSH2 AND MSH6) 02/11/25 CT Chest Lymph nodes in the mediastinum which are at the upper limits of normal and are more numerous than typically expected. These are indeterminate. Consider PET CT versus lymph node sampling. Two and 3 mm right middle lobe nodules which are too small to definitively characterize and are nonspecific. Attention is recommended on follow-up imaging. 02/11/25 MRI Pelvis Primary Tumor: Distance to the anal verge: [...] obturator, inguinal, retroperitoneal): No. Other Findings: Unremarkable Oncology History No history exists. ROS: General: No fevers. No chills. HEENT: No acute vision changes. No acute hearing changes. Respiratory: No cough. No wheezing. Cardiovascular: No chest pain. No palpitations. Gastrointestinal: No diarrhea. No vomiting. Genitourinary: Difficulty urinating. No dysuria. No incontinence. BRBPR. Musculoskeletal: No arthralgia. No myalgia. Neurological: No dizziness. No numbness. Psychiatric: No anxiety. No depression. Hematologic: No easy bleeding. No easy bruising. No swollen lymph nodes. Endocrine: No hot intolerance. No cold intolerance. PAST MEDICAL HISTORY: Past 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[1] PAST SURGICAL HISTORY: Surgical History[2] MEDICATIONS: Current Medications[3] ALLERGIES: Allergies[4] SOCIAL HISTORY: Social History[5] FAMILY HISTORY:Family History[6] PHYSICAL EXAM: Vital Signs: Visit Vitals BP 118/75 Pulse 80 Resp 18 Wt 126 kg (277 lb 1.9 oz) SpO2 96% BMI 41.64 kg/m?? Smoking Status Never BSA 2.47 m?? GEN: A&O. NAD. HEENT: NCAT. Vision grossly intact. EOM intact. Hearing grossly intact. NECK: Supple. No gross abnormalities. CHEST: Symmetric. LUNGS: Non-labored breathing. No abnormal breath sounds. HEART: Extremities well-perfused. No cyanosis. ABDOMEN: No distention. EXTREMITIES: ROM intact. No edema. NEUROLOGIC: No gross neurologic deficits. PSYCHIATRIC: Appropriate mood and affect. SKIN: Warm, dry, and well perfused. PATHOLOGY/RESULTS: All pertinent lab and pathology results were reviewed and dictated above. IMAGING: Imaging Results have been reviewed with pertinent findings dictated above. ASSESSMENT AND PLAN: Carlos Tripp is a 55 y.o. 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 The benefits, risks, and possible side effects (including but not limited to fatigue, skin burn, frequency, urgency, dysuria, incontinence, UTI, skin burn, peeling) of external beam radiation therapywere discussed with patient and consent was obtained. We will plan for 50 Gy in [address] Sim scheduled 03/01 9:00. Patient instructed to drink 20-40 ounces of water 30- 60 minutes prior toCT sim and all treatments. Carlos Tripp has a life threatening diagnosis which warrants urgent treatment. Carlos Tripp was dicussed in a multidisciplinary fashion with Surgical Oncology and Medical Oncology. Scheduled tomorrow with Dr. Kaleb Bill at [facility] in [place]. Referral sent to Pulmonology for consideration of biopsy for mediastinal lymph nodes. Thank you for allowing us to participate in the care of Carlos Tripp. Future Appointments Date Time Provider Department Center 03/01/2025 9:00 AM Km Wooten MD RO [facility] Orders Placed This Encounter Procedures Comprehensive metabolic panel CBC and differential Protime-INR Ambulatory referral to Radiation Oncology Ambulatory referral to Pulmonology Joel Xie MD Radiation Oncology, PGY-2 [1] Past 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: Diagnosis Date Rectal mass [2] Past Surgical History: Procedure Laterality Date CHOLECYSTECTOMY [3] Current Outpatient Medications: atorvastatin (Lipitor) 20 MG tablet, Take 1 tablet by mouth daily. (Patient not taking: Reported on02/05/2025), Disp: , Rfl: DOXYCYCLINE MONOHYDRATE PO, Take 100 mg by mouth 2 times a day. (Patient not taking: Reported on 02/05/2025), Disp: , Rfl: hydrocortisone (Anusol-HC) 25 MG suppository, Insert 1 suppository into the rectum 2 times a day. (Patient not taking: Reported on 02/05/2025), Disp: , Rfl: [4] No Known Allergies [5] Social History Tobacco Use Smoking status: Never Smokeless tobacco: Never Substance Use Topics Alcohol use: Yes Comment: Rarely Drug use: Never [6] Family History Problem Relation Name Age of Onset Heart Problem Mother Heart attack Father Cancer Other Maternal Uncle Cosigned by Km oWoten MD at 02/20/2025 12:59 PM EDT Associated attestation - Km Wooten MD - 02/20/2025 12:59 PM EDT I saw and evaluated the patient with the resident/fellow. I discussed the case with the resident/fellow and agree with the findings and plan as documented. documented in this encounter Plan of Treatment Upcoming Encounters Date Type Department Care Team (Late st Contact Info) Description 03/01/2025 9:00 AM EDT Appointment [facility] Radiation [address] [place] [address] Km Wooten MD [address] [facility] [address] [place] [address] 03/19/2025 9:30 AM EDT Consult [place] [facility] [address] [place] [address] Joel Aguila MD [address] [place] [address] Scheduled Orders Name Type Priority Associated Diagnoses Order Schedule Comprehensive metabolic panel Lab Routine Malignant neoplasm of rectum (CMS/HCC) Expected: 2025 (Approximate), Expires: 08/23/2026 CBC and differential Lab Routine Malignant neoplasm of rectum (CMS/HCC) Expected: 2025 (Approximate), Expires: 08/23/2026 Protime-INR Lab Routine Malignant neoplasm of rectum (CMS/HCC) Expected: 2025 (Approximate), Expires: 08/23/2026 Rad Onc Intent to Treat Radiation Oncology Routine Malignant neoplasm of rectum (CMS/HCC) 1 Occurrences starting 2025 until 08/23/2026 Scheduled Referrals Name Type Priority Associated Diagnoses Order Schedule Ambulatory referral to Radiation Oncology Outpatient Referral Routine Once for 1 Occurrences starting 2025 until 2025 Ambulatory referral to Pulmonology Outpatient Referral Routine Malignant neoplasm of rectum (CMS/HCC) 1 Occurrences starting 2025 until 08/23/2026 documented as of this encounter Visit Diagnoses Diagnosis Malignant neoplasm of rectum (CMS/HCC)- Primary Malignant neoplasm of rectum documented in this encounter Additional Health Concerns Assessment Noted Time PHQ-9 Depression Total Score: 0 02/20/20 2:59 PM EDT A fall risk assessment has been complete d for the patient 02/05/2025 10:24 AM EDT A Body Mass Index follow-up plan has been documented for the patient 02/05/2025 12:03 PM EDT documented as of this encounter Care Teams Hardwood Floor Sander Relationship Specialty Start Date End Date Tejal Saeed APRN [address] [place] [address] PCP - General 11/07/20 Km Wooten MD [id number] [place] [address] Consulting Physician Radiation Oncology 02/14/25 documented as of this encounter
--- OUTSIDE RECORDS SUMMARY | 2025-02-20 15:11 | XMS_ITS | Encounter Summary ---
Author Organization [facility] Address [address] [place] [address] Care Team Providers Care Corporate Travel Coordinator Name Role Phone Tejal Saeed APRN Primary Care Provider [phone] Km Wooten MD Unavailable [phone] Encounter Details Date Type Department Care Team (Late st Contact Info) Description 01/08/2025 Orders Only External Location 800 [place] [address] Provider, External Social History Tobacco Use Types Packs/Day Years Used Date Smoking Tobacco: Never Assessed Sex and Gender Information Value Date Recorded Sex Assigned at Not on file Legal Sex Male 6:14 PM EDT Gender Identity Not on file Sexual Orientation Not on file documented as of this encounter Plan of Treatment Upcoming Encounters Date Type Department Care Team (Late Contact Info) Description 03/01/2025 9:00 AM EDT Appointment [facility] [address] [place] [address] Km Wooten MD 800 [facility] [address] [place] [address] 03/19/2025 9:[address] [facility] [address] [place] [address] Joel Aguila MD [address] [place] [address] documented as of this encounter Procedures Procedure [...] on filedocumented in this encounter Care Teams Corporate Travel Coordinator Relationship Specialty Start Date End Date Tejal Saeed APRN [address] [place] [address] PCP - General 11/07/20 Km Wooten MD 800 [facility] [address] [place] [address] Consulting Physician Radiation Oncology 02/14/25 documented as of this encounter
--- OUTSIDE RECORDS SUMMARY | 2025-02-20 15:12 | XMS_ITS | Encounter Summary ---
Author Organization [facility] Address [address] [place] [address] Care Team Providers Care Core Piler Name Role Phone Tejal Saeed APRN Primary Care Provider [phone] Km Wooten MD Unavailable [phone] Encounter Details Date Type Department Care Team (Late st Contact Info) Description 01/08/2025 Orders Only External Location 800 [place] [address] Provider, External Social History Tobacco Use Types [...] Appointment [facility] [address] [place] [address] Km Wooten MD 800 [facility] [address] [place] [address] 03/19/2025 9:30 AM EDT Consult [facility] [address] [place] [address] Joel Aguila MD [address] [place] [address] documented as of this encounter Procedures Procedure [...] on filedocumented in this encounter Care Teams Core Piler Relationship Specialty Start Date End Date Tejal Saeed APRN [address] [place] [address] PCP - General 11/07/20 Km Wooten MD 800 [facility] [address] [place] [address] Consulting Physician Radiation Oncology 02/14/25 documented as of this encounter
--- OUTSIDE RECORDS SUMMARY | 2025-02-20 15:12 | XMS_ITS | Encounter Summary ---
Author Organization [facility] Address [address] [id number] Care Team Providers Care Dairy Farmworker Name Role Phone Tejal Saeed APRN Primary Care Provider [phone] Encounter Details Date Type Department Care Team [...] at all 02/05/2025 10:24 AM EDT Sugar Cih Patient Health Questionnaire -2 Score 0 02/05/2025 [...] usual. Not at all 02/05/2025 10:24 AM AMORT Sugar Chi Thoughts that you would be b dwight off or hurting yourself in some way Not at all 02/05/2025 10:24 AM EDT Sugar Chi Patient Health Questionnaire -9 Score 0 02/05/2025 10:24 AM AMORT Sugar Chi * If you checked off any problems on this questionnaire so far, Question Answer Date of Assessment Author How difficult have these problems made it for you to do your work, take care of things at home, or get along with other people? Not difficult at all 02/05/2025 10:24 AM Sugar Aguilera documented as of this encounter Plan of Treatment Upcoming Encounters Date Type Department Care Team (Late st Contact Info) Description 03/01/2025 9:00 AM EDT Appointment [facility] Radiation 800 [facility]. [id number] [place] [address] Km Wooten MD 800 [facility] [address] [place] [address] 03/19/2025 9:30 AM EDT Consult [facility] [address] [place] [address] Joel Aguila MD [address] [place] [address] documented as of this encounter Visit Diagnoses [...] documented as of this encounter Care Teams Dairy Farmworker Relationship Specialty Start Date End Date Tejal Saeed APRN [address] [place] [address] PCP - General 11/07/20 documented as of this encounter
--- OUTSIDE RECORDS SUMMARY | 2025-02-20 15:12 | XMS_ITS | Encounter Summary ---
Author Organization [facility] Address [address] [id number] Care Team Providers Care Head Of Marketing Analytics Name Role Phone Tejal Saeed APRN Primary Care Provider [phone] Km Wooten MD Unavailable [phone] Encounter Details Date Type Department Care Team (Late st Contact Info) Description 02/20/2025 Telephone [facility] [address] [place] [address] [place] [address] Social History Tobacco Use Types Packs/Day Years [...] encounter Miscellaneous Notes * Telephone Encounter - Susi Bustos - 02/20/2025 1:36 PM EDT Patient is on urology referral triage, called patient to schedule a consult appointment, no answer,left a detailed message to return my call.Susi Bustos RN documented in this encounter Plan of Treatment Upcoming Encounters Date Type Department Care Team (Late st Contact Info) Description 03/01/2025 9:00 AM EDT Appointment [facility] [address] [place] [address] Km Wooten MD 800 [facility] [address] [place] [address] 03/19/2025 9:30 AM EDT [facility] [address] [place] [address] Joel Aguila MD [address] [place] [address] documented as of this encounter Visit Diagnoses [...] documented as of this encounter Care Teams Head Of Marketing Analytics Relationship Specialty Start Date End Date Tejal Saeed APRN [address] [place] [address] PCP - General 11/07/20 Km Wooten MD 800 [facility] [address] [place] [address] Consulting Physician Radiation Oncology 02/14/25 documented as of this encounter
--- OUTSIDE RECORDS SUMMARY | 2025-02-20 15:12 | XMS_ITS | Encounter Summary ---
Author Organization [facility] Address [address] [id number] Care Team Providers Care Software Packager Name Role Phone Tejal Saeed APRN Primary Care Provider [phone] Km Wooten MD Unavailable [phone] Encounter Details Date Type Department Care Team (Late Contact Info) Description 02/08/2025 Lab Requisition [facility] H Lab 800 [place] [address] Con Sumner MD [address] [facility] [address] [place] [address] Hemorrhage of anus and rectum [...] AM EDT Appointment [facility] Radiation 800 [facility]. [id number] [place] [address] Km Wooten MD [address] [place] [address] 03/19/2025 9:30 AM EDT Consult [facility] [address], [address] [place] [address] Joel Aguila MD [address] [place] [address] documented as of this encounter Procedures Procedure Name Priority Date/Time Associated Diagnosis Comments SURGICAL PATHOLOGY CONSULT Routine 02/08/2025 11:05 AM EDT Hemorrhage of anus and rectum documented in this encounter Results * Surgical Pathology Consult (02/08/2025 11:05 AM EDT) Case Report Sugical Pathology Consult Case: [id number] Authorizing Provider: Con Sumner MD Collected: 02/08/20251104 Ordering Location: [facility] Lab Received: 02/08/2025 110 Pathologist: Luis Weiner DO Specimen: Colon, [id number] 02/10/2025 12:09 PM EDT [facility] Final Diagnosis DESIGNATED COLON, RECTUM; MASS, BIOPSY (OUTSIDE SLIDES; [id number]; 02/05/2025): - MODERATELY DIFFERENTIATED ADENOCARCINOMA (SEE COMMENT). - MMR BY IHC (PER REPORT): - RETAINED NUCLEAR EXPRESSION OF ALL FOUR PROTEINS (MLH1, PMS2, MSH2 AND MSH6). 02/10/2025 12:09 PM EDT [facility] at 1209 EDT Comment Correlation with endoscopic findings and imaging is recommended to determine site of tumor (colon vs rectum) given specimen designation. 02/10/2025 12:09 PM EDT [facility] Clinical Information K62.5 - Hemorrhage of anus and rectum [ICD-10-CM] 02/10/2025 12:09 PM EDT [facility] Gross Description A. [id number] Received along with a corresponding pathology report from [facility]ology [facility]ology Laboratory are 5 slide(s) labeled outside case: [id number] collected on 01/31/2025. 02/10/2025 12:09 PM EDT [facility] Note: A resident was involved in the service. I attest I examined the relevant preparations for the specimens and confirmed the diagnosis or interpretation. 02/10/2025 12:09 PM EDT [facility] Tissue Colon structure / Unknown 02/08/2025 11:05 AM EDT 02/08/2025 11:05 AM EDT us Con Sumner MD LAB PATHOLOGY ORDERABLES Final Result [facility] [address] [place] [address] documented in this encounter Visit Diagnoses Diagnosis [...] documented as of this encounter Care Teams Software Packager Relationship Specialty Start Date End Date Tejal Saeed APRN [address] [place] [address] PCP - General 11/07/20 Km Wooten MD [address] [place] [address] Consulting Physician Radiation Oncology 02/14/25 documented as of this encounter
--- OUTSIDE RECORDS SUMMARY | 2025-02-20 15:12 | XMS_ITS | Encounter Summary ---
Author Organization [facility] Address [address] [place] [address] Care Team Providers Care B2B Sales Professional Name Role Phone Tejal Saeed APRN Primary Care Provider [phone] Km Wooten MD Unavailable [phone] Reason for Referral * Consultation (Urgent) - Authorized Specialty Diagnoses / Procedures Referred By Contwagner t Referred To Contact Urology Diagnoses Elevated PSA Km Wooten MD [address] [facility] [address] [place] [address] Phone: tel: fax: [facility] [address], [address] [place] [address] Phone: tel: fax: Referral ID Status Reason Start Date Expiration Date Visits Requested Visits Authorized [id number] Authorized Specialty Services Required 02/18/2025 08/20/2026 1 1 Scheduling Instructions History of elevated PSA of 8.7, concern for ? Prostate cancer in a gentleman with newly diagnosed rectal cancer Encounter Details Date Type Department Care Team (Late st Contact Info) Description 02/18/2025 Orders Only [facility] Radiation [address] [place] [address] Km Wooten MD [address] [place] [address] Elevated PSA (Primary Dx) Social History Tobacco Use Types [...] AM EDT Appointment [facility] Radiation 800 [facility]. [address] [place] [address] Km Wooten MD [id number] [place] [address] 03/19/2025 9:30 AM EDT Consult [facility] [address] [place] [address] Joel Aguila MD [address] [facility] [address] [place] [address] Scheduled Referrals Name Type Priority Associated Diagnoses Order Schedule Ambulatory referral to Urology Outpatient Referral Routine Elevated PSA 1 Occurrences starting 02/18/2025 until 08/22/2026 documented as of this encounter Visit Diagnoses Diagnosis Elevated PSA- Primary Elevated prostate specific antigen (PSA) documented in this encounter Additional Health Concerns Assessment Noted Time PHQ-9 Depression Total Score: 0 02/06/20 10:24 AM EDT A fall risk assessment has been complete d for the patient 02/05/2025 10:24 AM EDT A Body Mass Index follow-up plan has been documented for the patient 02/05/2025 12:03 PM EDT documented as of this encounter Care Teams B2B Sales Professional Relationship Specialty Start Date End Date Tejal Saeed APRN [address] [place] [address] PCP - General 11/07/20 Km Wooten MD 800 [facility] [address] [place] [address] Consulting Physician Radiation Oncology 02/14/25 documented as of this encounter
--- OUTSIDE RECORDS SUMMARY | 2025-02-20 15:12 | XMS_ITS | Encounter Summary ---
Author Organization [facility] Address [address] [place] [address] Care Team Providers Care Metrology Manager Name Role Phone Tejal Saeed APRN Primary Care Provider [phone] Km Wooten MD Unavailable [phone] Encounter Details Date Type Department Care Team (Late Contact Info) Description 02/14/2025 Orders Only [facility] 800 [place] [address] Con Sumner MD [address] [facility] [address] [place] [address] Social History Tobacco Use Types [...] AM EDT Appointment [facility] Radiation 800 [facility] [id number] [place] [address] Km Wooten MD 800 [facility] [address] [place] [address] 03/19/2025 9:30 AM EDT Consult [facility] [address], [address] [place] [address] Joel Aguila MD [address] [place] [address] documented as of this encounter [...] documented as of this encounter Care Teams Metrology Manager Relationship Specialty Start Date End Date Tejal Saeed APRN [address] [place] [address] PCP - General 11/07/20 Km Wooten MD 800 [facility] [address] [place] [address] Consulting Physician Radiation Oncology 02/14/25 documented as of this encounter
--- OUTSIDE RECORDS SUMMARY | 2025-02-20 15:12 | XMS_ITS | Encounter Summary ---
Author Organization [facility] Address [address] [place] [address] Care Team Providers Care Magento Developer Name Role Phone Tejal Saeed APRN Primary Care Provider [phone] Encounter Details Date Type Department Care Team [...] Appointment [facility] Radiation [address] [place] [address] Km Wooten MD [address] [place] [address] 03/19/2025 9:30 AM EDT Consult [facility] [address] [place] [address] Joel Aguila MD [address] [place] [address] documented as of this encounter Visit Diagnoses [...] documented as of this encounter Care Teams Magento Developer Relationship Specialty Start Date End Date Tejal Saeed APRN [address] [place] [address] PCP - General 11/07/20 documented as of this encounter
--- OUTSIDE RECORDS SUMMARY | 2025-02-20 15:12 | XMS_ITS | Encounter Summary ---
Author Organization [facility] Address [address] [id number] Care Team Providers Care Insole Tacker Name Role Phone Tejal Saeed APRN Primary Care Provider [phone] Km Wooten MD Unavailable [phone] Encounter Details Date Type Department Care Team (Latest Contact Info) Description 2025 Travel Social History Tobacco Use Types Packs/Day [...] -2 Score 0 2025 2:59 PM EDT Lissa [...] Month) No 2025 2:59 PM Smiley Angulo 6. Suicidal Behavior (Lifetime) No 2:59 PM Lissa Angulo documented as of this encounter Plan of Treatment Upcoming Encounters Date Type Department Care Team (Late st Contact Info) Description 03/01/2025 9:00 AM EDT Appointment [facility] Radiation [address] [place] [address] Km Wooten MD [address] [facility] [address] [place] [address] 03/19/2025 9:30 AM EDT Consult [place] [facility] [address] [place] [address] Joel Aguila MD [address] [place] [address] documented as of this encounter [...] documented as of this encounter Care Teams Insole Tacker Relationship Specialty Start Date End Date Tejal Saeed APRN [address] [place] [address] PCP - General 11/07/20 Km Wooten MD [address] [facility] [address] [place] [address] Consulting Physician Radiation Oncology 02/14/25 documented as of this encounter
--- OUTSIDE RECORDS SUMMARY | 2025-02-20 15:12 | XMS_ITS | Clinical Summary ---
Author Organization [facility] Address [address] [place] [address] Care Team Providers Care Field Collector Name Role Phone SaturninoyahairaTejal APRN Primary Care Provider [phone] [phone] Km Wooten MD Unavailable [phone] Allergies No known active allergies Medications atorvastatin (Lipitor) 20 MG tablet Take 1 tablet by mouth daily. Active DOXYCYCLINE MONOHYDRATE PO Take 100 mg by mouth 2 times a day. Active hydrocortisone (Anusol-HC) 25 MG suppository Insert 1 suppository into the rectum 2 times a day. Active Active Problems Problem Noted Date Diagnosed Date Malignant neoplasm of rectum 2025 Encounters Date Type Department Care Team Description 02/20/[address] [facility] Urology [address] [facility], 2nd [place] [address] Susi Bustos 02/20/[address] [facility] Urology [address], [address] [place] [address] Susi Bustos 2025 2:44 PM EDT Hospital Encounter [facility] [address] [place] [address] Km Wooten MD Malignant neoplasm of rectum (CMS/HCC) (Primary Dx) 2025 Travel 02/18/2025 Orders Only [facility] [address] [place] [address] Km Wooten MD Elevated PSA (Primary Dx) 02/14/2025 Orders Only [facility] [address] [place] [address] Con Sumner MD 02/14/2025 Telephone [facility] [address] [address] Km Wooten MD 02/14/2025 Orders Only [facility] [address] [place] [address] Con Sumner MD Malignant neoplasm of rectum (CMS/HCC) (Primary Dx) 02/11/2025 4:34 PM EDT - 02/11/2025 11:59 PM EDT Hospital Encounter [facility] [address] [place] [address] Malignant neoplasm of rectum (CMS/HCC) Discharge Disposition: Home or Self Care 02/11/2025 3:04 PM EDT - 02/11/2025 4:33 PM EDT Hospital Encounter [facility] [address] [place] [address] Malignant neoplasm of rectum (CMS/HCC) Discharge Disposition: Home or Self Care 02/11/2025 Travel 02/08/2025 Lab Requisition [facility] [address] [place] [address] Con Sumner MD Hemorrhage of anus and rectum 02/05/2025 11:00 AM EDT Office Visit [facility] [address] [place] [address] Con Sumner MD Malignant neoplasm of rectum (CMS/HCC) (Primary Dx) 02/05/2025 Travel 01/08/2025 Orders Only External Location [address] [place] [address] Provider, External 01/08/2025 Orders Only External Location [address] [place] [address] Provider, External 01/08/2025 Orders Only External Location [address] [place] [address] Provider, External from Last 3 Months Family [...] Pulse 80 2025 2:59 PM EDT Temperature 36.9 C (98.4 F) 02/05/2025 10:20 AM EDT Respiratory Rate 18 2025 2:59 PM EDT Oxygen Saturation 96% 2025 2:59 PM EDT Inhaled Oxygen Concentration - - Weight 126 kg (277 lb 1.9 oz) 2025 2:59 PM EDT Height 173.7 cm (5' 8.4 ) 02/05/2025 10:20 AM ED T Body Mass Index 41.64 02/05/2025 10:20 AM EDT Plan of Treatment Upcoming Encounters Date Type Department Care Team (Late st Contact Info) Description 03/01/2025 9:00 AM EDT Appointment [facility] [address] [place] [address] Km Wooten MD [address] [place] [address] 03/19/2025 9:30 AM EDT Consult [place] [facility] [address], 2nd [place] [address] Joel Aguila MD [address] [place] [address] Health Maintenance Due Date Last Done Comments [...] 02/20/2016 Sigmoidoscopy 02/20/2016 [facility]-Colorectal Cancer Screening 02/20/2016 [id number] Vaccine ( season) 2024 06/24/2021, 11/08/2020, 10/11/2020 [facility]-Influenza Vaccine (#1) 2025 05/16/2021 [facility]-Depression Screening 2026 025, 2025 [facility]-DTaP,Tdap,and Td Vaccine s (2 - Td [...] 02/12/2025 1:00 PM us Con Sumner MD IM MRI PROCEDURES Final Resul t * Surgical Pathology Consult (02/08/2025 11:05 AM EDT) Case Report Sugical Pathology Consult Case: [id number] Authorizing Provider: Con Sumner MD Collected: 02/08/20251104 Ordering Location: [facility] Lab Received: 02/08/2025 1105 Pathologist: Luis Weiner DO Specimen: Colon, [id number] 02/10/2025 12:09 PM EDT [facility] Final Diagnosis DESIGNATED COLON, RECTUM; MASS, BIOPSY (OUTSIDE SLIDES; [id number]; 02/05/2025): - MODERATELY DIFFERENTIATED ADENOCARCINOMA (SEE COMMENT). - MMR BY IHC (PER REPORT): - RETAINED NUCLEAR EXPRESSION OF ALL FOUR PROTEINS (MLH1, PMS2, MSH2 AND MSH6). 02/10/2025 12:[address] [facility] at 1209 EDT Comment Correlation with endoscopic findings and imaging is recommended to determine site of tumor (colon vs rectum) given specimen designation. 02/10/2025 12:[address] [facility] Clinical Information K62.5 - Hemorrhage of anus and rectum [ICD-10-CM] 02/10/2025 12:[address] [facility] Gross Description A. [id number] Received along with a corresponding pathology report from [facility] are 5 slide(s) labeled outside case: [id number] collected on 01/31/2025. 02/10/2025 12:09 PM EDT [facility] Note: A resident was involved in the service. I attest I examined the relevant preparations for the specimens and confirmed the diagnosis or interpretation. 02/10/2025 12:[address] [facility] Tissue Colon structure / Unknown 02/08/2025 11:05 AM EDT 02/08/2025 11:05 AM EDT Con Sumner MD LAB PATHOLOGY ORDERABLES Final Result [facility] [address] [place] [address] * CEA (02/05/2025 11:54 AM EDT) CEA, Serum <1.8 <4.0 ng/mL 02/05/2025 1:[address] [facility] Blood Venous blood specimen / Unknown Venipuncture / Unknown 02/05/2025 11:54 AM EDT 02/05/2025 12:43 PM EDT Narrative [facility] - 02/05/2025 1:23 PM EDT Normal range for smokers: < 5.5 ng/ml Normal range for non-smokers: <=4.0 ng/ml Performed by Maged electrochemiluminescent immunoassay. Results obtained with different test methods or kits cannot be used interchangeably. us Con Sumner MD LAB BLOOD ORDERABLES Final Res ult [facility] [address] [place] [address] * CT OUTSIDE IMAGES (01/08/2025 8:49 PM [...] from Last 3 Months Insurance Care Teams Field Collector Relationship Specialty Start Date End Date Tejal Saeed APRN [address] [place] [address] PCP - General 11/07/20 Km Wooten MD [address] [address] Consulting Physician Radiation Oncology 02/14/25
--- OUTSIDE RECORDS SUMMARY | 2025-02-20 15:12 | XMS_ITS | Encounter Summary ---
Author Organization [facility] Address [address] [id number] Care Team Providers Care Maintenance Mechanic Telephone Name Role Phone Tejal Seaed APRN Primary Care Provider [phone] Km Wooten MD Unavailable [phone] Reason for Referral * Consultation (Routine) - Closed Specialty Diagnoses / Procedures Referred By Contac t Referred To Contact Radiation Oncology Diagnoses Malignant neoplasm of rectum (CMS/HCC) Con Sumner MD [address] [address] Phone: tel: fax: [facility] CC Radiation [address] [place] [address] Phone: tel: fax: Referral ID Status Reason Start Date Expiration Date V isits Requested Visits Authorized [id number] Closed Specialty Services Required 02/14/2025 08/16/2026 1 1 Scheduling Instructions Rectal cancer - needs total neoadjuvant therapy. Schedule radiation oncology at [facility] Scheduling medical oncology with Dr. Kaleb Bill at [facility]. * Consultation (Routine) - Authorized Specialty Diagnoses / Procedures Referred By Contac t Referred To Contact Medical Oncology Diagnoses Malignant neoplasm of rectum (CMS/HCC) Con Sumner MD [address] [facility] [address] [place] [address] Phone: tel: fax: Referral ID Status Reason Start Date Expiration Date Visits Requested Visits Authorized [id number] Authorized Specialty Services Required 02/14/2025 08/16/2026 1 1 Scheduling Instructions Rectal Cancer - needs total neoadjuvant therapy. Schedule medical oncology with Dr.Michael Bill at [facility] [phone]. Encounter Details Date Type Department Care Team (Latest Contact Info) Description 02/14/2025 Orders Only [facility] [address] [place] [address] Con Sumner MD [address] [address] Malignant neoplasm of rectum (CMS/HCC) (Primary [...] AM EDT Appointment [facility] Radiation 800 [facility] [address] [place] [address] Km Wooten MD 800 [facility] [address] [place] [address] 03/19/2025 9:30 AM EDT Consult [place] [facility] [address], [address] [place] [address] Joel Aguila MD [address] [place] [address] Scheduled Referrals Name Type Priority Associated Diagnoses [...] documented as of this encounter Care Teams Maintenance Mechanic Telephone Relationship Specialty Start Date End Date Tejal Saeed APRN [address] [place] [address] PCP - General 11/07/20 Km Wooten MD [address] [facility] [address] [place] [address] Consulting Physician Radiation Oncology 02/14/25 documented as of this encounter
--- OUTSIDE RECORDS SUMMARY | 2025-02-20 15:12 | XMS_ITS | Encounter Summary ---
Author Organization [facility] Address [address] [id number] Care Team Providers Care Top Executive Name Role Phone Tejal Saeed APRN Primary Care Provider [phone] Km Wooten MD Unavailable [phone] Encounter Details Date Type Department Care Team (Late st Contact Info) Description 02/14/2025 Telephone [facility] Radiation [address] [facility]. [address] [place] [address] Km Wooten MD [address] [place] [address] Social History Tobacco Use Types [...] Appointment [facility] [address] [place] [address] Km Wooten MD [address] [facility] [address] [place] [address] 03/19/2025 9:30 AM EDT Consult [place] [facility] [address], [address] [place] [address] Joel Aguila MD [address] [place] [address] documented as of this encounter [...] documented as of this encounter Care Teams Top Executive Relationship Specialty Start Date End Date Tejal Saeed APRN [address] [place] [address] [id number] PCP - General 11/07/20 Km Wooten MD [address] [place] [address] Consulting Physician Radiation Oncology 02/14/25 documented as of this encounter
--- OUTSIDE RECORDS SUMMARY | 2025-02-20 15:12 | XMS_ITS | Encounter Summary ---
Author Organization [facility] Address [address] [place] [address] Care Team Providers Care Metal Room Dental Technician Name Role Phone Tejal Saeed APRN Primary Care Provider [phone] Km Wooten MD Unavailable [phone] Encounter Details Date Type Department Care Team (Late st Contact Info) Description 01/08/2025 Orders Only External Location [address] [place] [address] Provider, External Social History Tobacco Use Types [...] Appointment [facility] [address] [place] [address] Km Wooten MD 800 [facility] [address] [place] [address] 03/19/2025 9:30 AM EDT Consult [place] [facility] [address], [address] [place] [address] Joel Aguila MD [address] [place] [address] documented as of this encounter Procedures Procedure [...] on filedocumented in this encounter Care Teams Metal Room Dental Technician Relationship Specialty Start Date End Date Tejal Saeed APRN [address] [place] [address] PCP - General 11/07/20 Km Wooten MD [address] [facility] [address] [place] [address] Consulting Physician Radiation Oncology 02/14/25 documented as of this encounter
--- OUTSIDE RECORDS SUMMARY | 2025-02-20 15:12 | XMS_ITS | Encounter Summary ---
Author Organization [facility] Address [address] [id number] Care Team Providers Care Patrol Driver Name Role Phone Tejal Saeed APRN Primary Care Provider [phone] Km Wooten MD Unavailable [phone] Encounter Details Date Type Department Care Team (Late st Contact Info) Description 02/20/2025 Telephone [place] [facility] [address], [address]nd [place] [address] [place] [address] Social History Tobacco Use Types Packs/Day Years [...] Telephone Encounter - Susi Bustos - 02/20/2025 1:55 PM EDT Patient is on urology referral triage, appointment made, need PSA lab test, called [facility], she will fax to our office. Susi Bustos RN documented in this encounter Plan of Treatment Upcoming Encounters Date Type Department Care Team (Late st Contact Info) Description 03/01/2025 9:00 AM EDT Appointment [facility] [id number] [place] [address] Km Wooten MD [address] [place] [address] 03/19/2025 9:30 AM EDT Consult [place] [facility] [address], [address] [place] [address] Joel Aguila MD [address] [place] [address] documented as of this encounter [...] documented as of this encounter Care Teams Patrol Driver Relationship Specialty Start Date End Date Tejal Saeed APRN [facility] [place] [address] PCP - General 11/07/20 Km Wooten MD [address] [facility] [address] [place] [address] Consulting Physician Radiation Oncology 02/14/25 documented as of this encounter
[2025-02-20 16:06] LABS: Hematocrit 45.1 % (42.0-52.0); Hemoglobin 14.7 g/dL (14.1-18.0); Immature Granulocytes % 0.4 %; Mean Corpuscular HGB Conc 32.6 g/dL (31.8-35.4); Mean Corpuscular Hemoglobin 27.1 pg (27.0-31.2); Mean Corpuscular Volume 83.1 fl (80-94); Nucleated Red Blood Cells % 0 %; Platelet Count 204 K/mm3 (142-424); Red Blood Count 5.43 M/mm3 (4.60-6.20); Red Cell Distribution Width-SD 37.7 fL; White Blood Count 8.5 K/mm3 (4.8-10.8)
[2025-02-20 18:35] LABS: Albumin Level 4.4 g/dl (3.5-5.0); Chloride 107 mmol/L (98-107)
[2025-02-20 18:36] LABS: Potassium 4.5 mmoL/L (3.5-5.1); Sodium 143 mmol/L (136-145)
[2025-02-20 18:38] LABS: Alanine Aminotransferase 41 U/L (12-78); Anion Gap 14.5 mEq/L (5-15); Aspartate Amino Transferase 38 U/L (17-59); Blood Urea Nitrogen 16 mg/dl (9-20); Carbon Dioxide 26 mmol/L (22.0-30.0); Creatinine,Serum 0.80 mg/dl (0.66-1.25); Estimated Glomerular Filt Rate 101 ml/min (>60); GFR (African American) 122 ML/MIN (>60)
[2025-02-20 18:39] LABS: Albumin/Globulin Ratio 1.8 (1.1-1.8); Alkaline Phosphatase 71 U/L (38-126); Bilirubin,Total 1.0 mg/dl (0.2-1.3); Calcium 9.4 mg/dl (8.4-10.2); Globulin 2.5 g/dL (1.3-3.2); Glucose 80 mg/dl (74-100); Total Protein,Serum 6.9 g/dl (6.3-8.2)
== END 2025-02-20 23:59 | disposition home or self-care (01) ==
LOC: LAB 15:09
PROVIDERS: PCP Family Medicine; Visit Provider Internal Medicine Medical Oncology
DX: C19 Malignant neoplasm of rectosigmoid junction (principal)
CPT/HCPCS: 36415; 80053; 85025

== ENCOUNTER 2025-03-04 10:11 | Outpatient (CLI) | payer OTHER, SELFPAY ==
--- OUTSIDE RECORDS SUMMARY | 2025-02-05 11:00 | XMS_ITS | Encounter Summary ---
Author Organization [facility] Address [address] [place] [address] Care Team Providers Care Field Sales Specialist Name Role Phone Tejal Saeed APRN Primary Care Provider [phone] Reason for Referral * Imaging (Routine) - Closed Specialty Diagnoses / Procedures Referred By Contac t Referred To Contact Radiology Diagnoses Malignant neoplasm of rectum (CMS/HCC) Procedures CT Chest w IV Contrast Con Sumner MD [address] [address] Phone: tel: fax: Referral ID Status Reason Start Date Expiration Date Visits Re quested Visits Authorized [id number] Closed 02/05/2025 08/07/2026 1 1 * Imaging (Routine) - Closed Specialty Diagnoses / Procedures Referred By Contac t Referred To Contact Radiology Diagnoses Malignant neoplasm of rectum (CMS/HCC) Procedures MR Pelvis w and wo IV Contrast Con Sumner MD [address] [address] Phone: tel: fax: Referral ID Status Reason Start Date Expiration Date Visits Re quested Visits Authorized [id number] Closed 02/05/2025 08/07/2026 1 1 Reason for Visit * Reason Comments Consult Rectal Mass * Consultation (Routine) - Closed Specialty Diagnoses / Procedures Referred By Contact Referred To Contact Surgical Oncology / Hematology and Oncology Diagnoses Rectal mass Skip Abbott MD [address] [facility] [address] [place] [address] Phone: tel:[phone] fax:[phone] [facility] Multidisciplinary Oncology Clinic [address] [place] [address] Phone: tel: fax: Referral ID Status Reason Start Date Expiration Date V isits Requested Visits Authorized [id number] Closed Specialty Services Required 02/01/2025 08/03/2026 1 1 Encounter Details Date Type Department Care Team (Latest Contact Info) Description 02/05/2025 11:00 AM EDT Office Visit [facility] Multidisciplinary Oncology Clinic [address] [place] [address] Con Sumner MD [id number] [place] [address] Malignant neoplasm of rectum (CMS/HCC) (Primary Dx) [...] television Not at all 02/05/2025 10:24 AM EDT Sugar Chi Moving or speaking so slowly that other [...] Jo MD - 02/05/2025 11:00 AM EDT [facility] Colon and Rectal Surgery [facility] History and Physical Index Visit TRAVON Sumner MD FACS FASCRS Patient Name: Carlos Tripp Date of : 1970 (54 y.o. ) Date of Service: 02/05/25 Chief Complaint: Rectal mass Referring MD: Skip Abbott MD hoop riveter: Tejal Saeed APRN Consulting MD: Yandy Sumner [...] of lymphadenopathy. [facility] and was found to have a large rectal cavitary masswith heaped margins measuring approximately 5-6 cm in length, encompassing more than half of the circumference of the lumen and extending into the anal verge. This was his first colonoscopy. Multiplebiopsies were taken with pathology pending at time of dictation. Patient was subsequently referred to [facility] for evaluation. Today, patient confirms [...] significant for HLD. Denies HTN, DM, prior [place], seizure, stroke, prior DVT/PE. Not on blood thinners or steroids. Surgical history significant for laparoscopic cholecystectomy 20 years ago. Can independently perform ADLs. 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 Present at [facility] LOWER GI TUMOR BOARD. Return to clinic after completion of chemotherapy and after completion of chemoradiation. documented in this encounter Plan of Treatment Upcoming Encounters Date Type Department Care Team (Late st Contact Info) Description 03/04/2025 8:42 AM EDT Hospital Encounter [facility] [address] [facility] [place] [address] Arrived 03/12/2025 12:00 PM EDT Appointment [facility] [address] [place] [address] Eric Tellez MD [address] [place] [address] documented as of this encounter Procedures Procedure [...] Kimberlyn Saul MD on 02/12/2025 1:00 PM us Con Sumner MD IMG MRI PROCEDURES Final Resul t * CEA (02/05/2025 11:54 AM EDT) CEA, Serum <1.8 <4.0 ng/mL 02/05/2025 1:23 PM EDT [facility] Blood Venous blood specimen / Unknown Venipuncture / Unknown 02/05/2025 11:54 AM EDT 02/05/2025 12:43 PM EDT Narrative [facility] - 02/05/2025 1:23 PM EDT Normal range for smokers: < 5.5 ng/ml Normal range for non-smokers: <=4.0 ng/ml Performed by Maged electrochemiluminescent immunoassay. Results obtained with different test methods or kits cannot be used interchangeably. us Con Sumner MD LAB BLOOD ORDERABLES Final Res ult [facility] [address] [place] [address] documented in this encounter Visit Diagnoses Diagnosis [...] documented as of this encounter Care Teams Field Sales Specialist Relationship Specialty Start Date End Date Tejal Saeed APRN [address] [place] [address] PCP - General 11/07/20 documented as of this encounter
--- OUTSIDE RECORDS SUMMARY | 2025-02-11 15:04 | XMS_ITS | Encounter Summary ---
Author Organization [facility] Address [address] [id number] Care Team Providers Care Quality Control Industrial Engineer Name Role Phone Tejal Saeed APRN Primary Care Provider [phone] [phone] Reason for Referral * Imaging (Routine) - Closed Specialty Diagnoses / Procedures Referred By Contac t Referred To Contact Radiology Diagnoses Malignant neoplasm of rectum (CMS/HCC) Procedures MR Pelvis w and wo IV Contrast Con Sumner MD [address] [address] Phone: tel: fax: Referral ID Status Reason Start Date Expiration Date Visits Re quested Visits Authorized [id number] Closed 02/05/2025 08/07/2026 1 1 Reason for Visit * Imaging (Routine) - Closed Specialty Diagnoses / Procedures Referred By Alice maria Referred To Contact Radiology Diagnoses Malignant neoplasm of rectum (CMS/HCC) Procedures MR Pelvis w and wo IV Contrast Con Sumner MD [address] [place] [address] Phone: tel: fax: Referral ID Status Reason Start Date Expiration Date Visits Re quested Visits Authorized [id number] Closed 02/05/2025 08/07/2026 1 1 Encounter Details Date Type Department Care Team (Latest Contact Info) Description 02/11/2025 3:04 PM EDT - 02/11/2025 4:33 PM EDT Hospital Encounter [facility] Radiology [address] [place] [address] Malignant neoplasm of rectum (CMS/HCC) Discharge Disposition: [...] EDT Hospital Encounter [facility] 800 [facility]. [id number] [place] [address] Arrived 03/12/2025 12:00 PM EDT Appointment [facility] [address] [place] [address] Eric Tellez MD [address] [place] [address] documented as of this encounter Procedures Procedure [...] Once in imaging, 1 dose, Starting on 02/11/25 at 1524, Until Tue02/11/25 at 1634, Routine, [...] documented as of this encounter Care Teams Quality Control Industrial Engineer Relationship Specialty Start Date End Date Tejal Saeed APRN [address] [place] [address] PCP - General 11/07/20 documented as of this encounter
--- OUTSIDE RECORDS SUMMARY | 2025-02-11 16:34 | XMS_ITS | Encounter Summary ---
Author Organization [facility] Address [address] [place] [address] Care Team Providers Care Machine Whitener Name Role Phone Tejal Saeed APRN Primary Care Provider [phone] [phone] Reason for Referral * Imaging (Routine) - Closed Specialty Diagnoses / Procedures Referred By Alice maria Referred To Contact Radiology Diagnoses Malignant neoplasm of rectum (CMS/HCC) Procedures CT Chest w IV Contrast Con Sumner MD [address] [address] Phone: tel: fax: Referral ID Status Reason Start Date Expiration Date Visits Re quested Visits Authorized [id number] Closed 02/05/2025 08/07/2026 1 1 Reason for Visit * Imaging (Routine) - Closed Specialty Diagnoses / Procedures Referred By Alice maria Referred To Contact Radiology Diagnoses Malignant neoplasm of rectum (CMS/HCC) Procedures CT Chest w IV Contrast Con Sumner MD [address] [address] Phone: tel: fax: Referral ID Status Reason Start Date Expiration Date Visits Re quested Visits Authorized [id number] Closed 02/05/2025 08/07/2026 1 1 Encounter Details Date Type Department Care Team (Latest Contact Info) Description 02/11/2025 4:34 PM EDT - 02/11/2025 11:59 PM EDT Hospital Encounter [facility] Radiology [address] [place] [address] Malignant neoplasm of rectum (CMS/HCC) Discharge Disposition: [...] as of this encounter Miscellaneous Notes * Xiao Wolfe - 02/11/2025 4:35 PM EDT Images from the original note [...] EDT Hospital Encounter [facility] 800 [facility]. [id number] [place] [address] Arrived 03/12/2025 12:00 PM EDT Appointment [facility] 800 [place] [address] Eric Tellez MD [address] [place] [address] documented as of this encounter Procedures Procedure Name Priority Date/Time Associated Diagnosis Comments CT CHEST W IV CONTRAST Routine 02/11/2025 4:46 PM EDT Malignant neoplasm of rectum (CMS/HCC) [...] Sumner MD IMG CT PROCEDURES Final Result documented in this encounter Visit Diagnoses Diagnosis Malignant neoplasm of rectum (CMS/HCC) Malignant neoplasm of rectum documented in this encounter Administered Medications Inactive Administered Medications - up to 3 most recent administrations Medication Order MAR Action Action Date Dose Rate Site iohexol (OMNIPaque) 300 MG/ML injection 100 mL 100 mL, Intravenous, Once in imaging, 1 dose, Starting on 02/11/25 at 1635, Until Tue02/11/25 at 1646, Routine, Imaging Protocol Orders Given 02/11/2025 4:46 PM EDT 100 mL documented in this encounter Additional Health Concerns Assessment Noted Time PHQ-9 Depression Total Score: 0 02/06/20 25 10:24 AM EDT A fall risk assessment has been complete d for the patient 02/05/2025 10:24 AM EDT A Body Mass Index follow-up plan has been documented for the patient 02/05/2025 12:03 PM EDT documented as of this encounter Care Teams Machine Whitener Relationship Specialty Start Date End Date Tejal Saeed APRN [facility] [place] [address] PCP - General 11/07/20 documented as of this encounter
--- OUTSIDE RECORDS SUMMARY | 2025-02-19 14:44 | XMS_ITS | Encounter Summary ---
Author Organization [facility] Address [address] [id number] Care Team Providers Care Risk Investigator Name Role Phone Tejal Saeed APRN Primary Care Provider [phone] Moreno Duarte MD Unavailable [phone] Reason for Referral * Radiation Therapy (Routine) - Pending Review Specialty Diagnoses / Procedures Referred By Contac t Referred To Contact Radiation Oncology Diagnoses Malignant neoplasm of rectum (CMS/HCC) Procedures Rad Onc Intent to Treat Rad Onc Intent to Treat Moreno Duarte MD [address] [address] Phone: tel: fax: [facility] 800 [facility] [address] [place] [address] Phone: tel: fax: Referral ID Status Reason Start Date Expiration Date Visits Requested Visits Authorized [id number] Pending Review Perform Procedure 2025 08/21/2026 1 1 * Consultation (Routine) - Closed Specialty Diagnoses / Procedures Referred By Contac t Referred To Contact Pulmonology Diagnoses Malignant neoplasm of rectum (CMS/HCC) Moreno Duarte MD [address] [address] Phone: tel: fax: [facility] [address] [place] [address] Phone: tel: fax: Referral ID Status Reason Start Date Expiration Date V isits Requested Visits Authorized [id number] Closed Specialty Services Required 2025 08/21/2026 1 1 Scheduling Instructions Biopsy concerning mediastinal lymph nodes * Consultation (Routine) - Closed Specialty Diagnoses / Procedures Referred By Contac t Referred To Contact Radiation Oncology Diagnoses Malignant neoplasm of rectum (CMS/HCC) Con Sumner MD [address] [address] Phone: tel: fax: [facility] [address] [address] Phone: tel: fax: Referral ID Status Reason Start Date Expiration Date V isits Requested Visits Authorized [id number] Closed Specialty Services Required 02/14/2025 08/16/2026 1 1 Scheduling Instructions Rectal cancer - needs total neoadjuvant therapy. Schedule radiation oncology at [facility] Scheduling medical oncology with Dr. Kaleb Bill at [facility]. Reason for Visit * Reason Comments Consult * Consultation (Routine) - Closed Specialty Diagnoses / Procedures Referred By Contac t Referred To Contact Radiation Oncology Diagnoses Malignant neoplasm of rectum (CMS/HCC) Con Sumner MD [address] [address] Phone: tel: fax: [facility] [address] [address] Phone: tel: fax: Referral ID Status Reason Start Date Expiration Date V isits Requested Visits Authorized [id number] Closed Specialty Services Required 02/14/2025 08/16/2026 1 1 Encounter Details Date Type Department Care Team (Latest Contact Info) Description 2025 2:44 PM EDT - 2025 11:59 PM EDT Hospital Encounter [facility] [id number] [place] [address] Moreno Duarte MD [address] [place] [address] Malignant neoplasm of rectum (CMS/HCC) [...] of Assessment Author 0 02/28/2025 2:42 PM EDT Krystal Obando * Question Answer Date of [...] all 2025 2:59 PM Lissa Angulo A Thoughts that you would be b dwight off or hurting yourself in some way Not at all 2025 2:59 PM EDT Lissa Hanley Patient Health Questionnaire -9 Score 0 2025 2:59 PM EDT Lissa Hanley * Calculated C-SSRS Risk Score (Lifetime/Recent) Answer Date of Assessment Author No Risk Indicated 2025 2:59 PM EDT Lissa Hanley * If you checked off any problems on this questionnaire so far, Question Answer Date of Assessment Author How difficult have these problems made it for you to do your work, take care of things at home, or get along with other people? Not difficult at all 2025 2:59 PM EDT Lissa Hanley * Question Answer Date of Assessment Author [...] 02/05/25 COLON, RECTUM; MASS, BIOPSY (OUTSIDE SLIDES; [id number]; 02/05/2025): - MODERATELY DIFFERENTIATED ADENOCARCINOMA (SEE COMMENT). [...] Scheduled tomorrow with Dr. Kaleb Bill at [facility] in [place]. Referral sent to Pulmonology for consideration of biopsy for mediastinal lymph nodes. Thank you for allowing us to participate in the care of Carlos Tripp. Future Appointments Date Time Provider Department Center 03/01/2025 9:00 AM [facility] This Encounter Procedures Comprehensive metabolic [...] EDT Hospital Encounter [facility] Rad[facility] 800 [facility] [id number] [place] [address] Arrived 03/12/2025 12:00 PM EDT Appointment [facility] Endoscopy [address] [place] [address] Eric Tellez MD [address] [place] [address] Scheduled Orders Name Type Priority Associated Diagnoses [...] documented as of this encounter Care Teams Risk Investigator Relationship Specialty Start Date End Date Tejal Saeed APRN [facility] [place] [address] PCP - General 11/07/20 Moreno Duarte MD 800 [facility] [address] [place] [address] Consulting Physician Radiation Oncology 02/14/25 documented as of this encounter
--- OUTSIDE RECORDS SUMMARY | 2025-02-25 11:50 | XMS_ITS | Encounter Summary ---
Author Organization [facility] Address [address] [id number] Care Team Providers Care Spike Machine Feeder Name Role Phone Tejal Saeed APRN Primary Care Provider [phone] Km Wooten MD Unavailable [phone] Encounter Details Date Type Department Care Team (Late st Contact Info) Description 02/25/2025 11:50 AM EDT Hospital Encounter [facility] [id number] [place] [address] Arrived Social History Tobacco Use Types Packs/Day Years [...] as of this encounter Functional Status * AUDIT-C Score Answer Date of Assessment Author 0 02/28/2025 2:42 PM EDT Krystal Obando * Question Answer Date of Assessment Author Q1: How often do you have a drink containing alcohol? Never 02/28/2025 2:42 PM EDT Krystal Obando Q2: How many drinks containing alcohol do you have on a typical day when you are drinking? Patient does not drink 02/28/2025 2:42 PM EDT Krystal Obando Q3: How often do you have six or more drinks on one occasion? Never 02/28/2025 2:42 PM EDT Krystal Obando documented as of this encounter Plan of Treatment Upcoming Encounters Date Type Department Care Team (Late st Contact Info) Description 03/04/2025 8:42 AM EDT Hospital Encounter [facility] Radiation [id number] [place] [address] Arrived 03/12/2025 12:00 PM EDT Appointment [facility] Endoscopy 800 [place] [address] Eric Tellez MD [address] [place] [address] documented as of this encounter Visit Diagnoses [...] documented as of this encounter Care Teams Spike Machine Feeder Relationship Specialty Start Date End Date Tejal Saeed APRN [address] [place] [address] PCP - General 11/07/20 Km Wooten MD 800 [facility] [address] [place] [address] Consulting Physician Radiation Oncology 02/14/25 documented as of this encounter
--- OUTSIDE RECORDS SUMMARY | 2025-02-28 15:30 | XMS_ITS | Encounter Summary ---
Author Organization [facility] Address [address] [place] [address] Care Team Providers Care Porcelain Enameler Name Role Phone Tejal Saeed APRN Primary Care Provider [phone] Km Wooten MD Unavailable [phone] Reason for Visit * Reason Comments New Patient * Consultation (Routine) - Closed Specialty Diagnoses / Procedures Referred By Contac t Referred To Contact Pulmonology Diagnoses Malignant neoplasm of rectum (CMS/HCC) Km Wooten MD [address] [facility] [address] [place] [address] Phone: tel: fax: [facility] [address] [place] [address] Phone: tel: fax: Referral ID Status Reason Start Date Expiration Date V isits Requested Visits Authorized [id number] Closed Specialty Services Required 2025 08/21/2026 1 1 Encounter Details Date Type Department Care Team (Late st Contact Info) Description 02/28/2025 3:30 PM EDT Office Visit Pav CC Head, Neck & Respiratory [address] [facility], [address]nd [place] [address] Eric Tellez MD [address] [place] [address] Adenopathy (Primary Dx) Social History [...] 3:30 PM EDT HEAD, NECK, RESPIRATORY CLINIC [facility] [place] Referring physician: Km Wooten MD, Con Sumner MD Chief Complaint Mediastinal adenopathy History Of Present Illness Carlos Tripp is a 55 y.o. male with history of lower rectum adenoca, Stage III cT3 cN2a [id number] 02/05/25. CT chest on showed lymph nodes [...] EDT Hospital Encounter [facility] Radiation [address] [facility] [id number] [place] [address] Arrived 03/12/2025 12:00 PM EDT Appointment P[facility] H Endoscopy [address] [place] [address] Eric Tellez MD [address] [place] [address] documented as of this encounter Goals Goal [...] documented as of this encounter Care Teams Porcelain Enameler Relationship Specialty Start Date End Date Tejal Saeed APRN [address] [place] [address] PCP - General 11/07/20 Km Wooten MD [address] [facility] [address] [place] [address] Consulting Physician Radiation Oncology 02/14/25 documented as of this encounter
--- OUTSIDE RECORDS SUMMARY | 2025-03-01 08:40 | XMS_ITS | Encounter Summary ---
Author Organization Healthcare Address [address] [place] [address] Care Team Providers Care Claim Auditor Name Role Phone Tejal Saeed APRN Primary Care Provider [phone] [phone] Km Wooten MD Unavailable [phone] Encounter Details Date Type Department Care Team (Late st Contact Info) Description 03/01/2025 8:40 AM EDT Hospital Encounter [facility] [address] [id number] [place] [address] Km Wooten MD [address] [place] [address] Social History Tobacco Use Types Packs/Day Years [...] Encounter [facility] [address] [id number] [place] [address] Arrived 03/12/2025 12:00 PM EDT Appointment [facility] Endoscopy [address] [place] [address] Eric Tellez MD [address] [place] [address] documented as of this encounter Goals Goal Patient Goal Type Associated Problems Recent Progress Patient-Stated? Author Autogenerat ed Goal Care Plan Autogenerated Problem No PrestonLisa documented as of this encounter Visit Diagnoses [...] documented as of this encounter Care Teams Claim Auditor Relationship Specialty Start Date End Date Tejal Saeed APRN [address] [place], [place] [id number] PCP - General 11/07/20 Km Wooten MD [address] [place] [address] Consulting Physician Radiation Oncology 02/14/25 documented as of this encounter
--- OUTSIDE RECORDS SUMMARY | 2025-03-04 08:42 | XMS_ITS | Encounter Summary ---
Author Organization Healthcare Address [address] [id number] Care Team Providers Care President Finance Company Name Role Phone Tejal Saeed APRN Primary Care Provider [phone] [phone] Km Wooten MD Unavailable [phone] Encounter Details Date Type Department Care Team ([facility] Contact Info) Description 03/04/2025 8:42 AM EDT Hospital Encounter [facility] Rad[facility] [address] [id number] [place] [address] Arrived Social History Tobacco Use Types Packs/Day [...] Upcoming Encounters Date Type Department Care Team ([facility] Contact Info) Description 03/12/2025 12:00 PM EDT Appointment [facility] Endoscopy [address] [place] [address] Eric Tellez MD [address] [place] [address] documented as of this encounter [...] documented as of this encounter Care Teams President Finance Company Relationship Specialty Start Date End Date Tejal Saeed, DIETETIC TECHNICIAN REGISTERED [address] [place] [address] PCP - General 11/07/20 Km Wooten MD [address] [place] [address] Consulting Physician Radiation Oncology 02/14/25 documented as of this encounter
--- OUTSIDE RECORDS SUMMARY | 2025-03-04 10:13 | XMS_ITS | Encounter Summary ---
Author Organization [facility] Address [address] [place] [address] Care Team Providers Care Coke Crane Operator Name Role Phone Tejal Saeed APRN Primary Care Provider +1 -[phone] Km Wooten MD Unavailable [phone] Encounter Details Date Type Department Care Team (Late st Contact Info) Description 01/08/2025 Orders Only External Location 800 [place] [address] Provider, External Social History Tobacco Use Types [...] EDT Hospital Encounter [facility] Radiation 800 [facility]. [id number] [place] [address] Arrived 03/12/2025 12:00 PM EDT Appointment [facility] Endoscopy [address] [place] [address] Eric Tellez MD [address] [place] [address] documented as of this encounter Procedures Procedure [...] on filedocumented in this encounter Care Teams Coke Crane Operator Relationship Specialty Start Date End Date Tejal Saeed APRN [address]0 [place] [address] PCP - General 11/07/20 Km Wooten MD 800 [facility] C114D [place] [address] Consulting Physician Radiation Oncology 02/14/25 documented as of this encounter
--- OUTSIDE RECORDS SUMMARY | 2025-03-04 10:13 | XMS_ITS | Encounter Summary ---
Author Organization [facility] Address [address] [place] [address] Care Team Providers Care Cargo Bracer Name Role Phone Tejal Saeed APRN Primary Care Provider [phone] -[phone] Km Wooten MD Unavailable [phone] Encounter Details Date Type Department Care Team (Late st Contact Info) Description 01/08/2025 Orders Only External Location 800 [place] [address] Provider, External Social History Tobacco Use Types [...] EDT Hospital Encounter [facility] Radiation 800 [facility]. [id number] [place] [address] Arrived 03/12/2025 12:00 PM EDT Appointment [facility] H Endoscopy 800 [place] [address] Eric Tellez MD [address] [place] [address] documented as of this encounter Procedures Procedure [...] on filedocumented in this encounter Care Teams Cargo Bracer Relationship Specialty Start Date End Date Tejal Saeed APRN [address]0 [place] [address] PCP - General 11/07/20 Km Wooten MD 800 [facility] C114D [place] [address] Consulting Physician Radiation Oncology 02/14/25 documented as of this encounter
--- OUTSIDE RECORDS SUMMARY | 2025-03-04 10:14 | XMS_ITS | Encounter Summary ---
Author Organization [facility] Address [address] [id number] Care Team Providers Care Nursing Support Worker Name Role Phone Tejal Saeed APRN Primary Care Provider +1 -[phone] Km Wooten MD Unavailable [phone] Encounter Details Date Type Department Care Team (Late st Contact Info) Description 02/14/2025 Telephone [facility] CC Radiation 800 [facility]. [id number] [place] [address] Km Wooten MD [address] [place] [address] Social History Tobacco Use Types [...] Encounter [facility] Radiation [address] [id number] [place] [address] Arrived 03/12/2025 12:00 PM EDT Appointment [facility] Endoscopy [address] [place] [address] Eric Tellez MD [address] [place] [address] documented as of this encounter Visit Diagnoses [...] documented as of this encounter Care Teams Nursing Support Worker Relationship Specialty Start Date End Date Tejal Saeed APRN [address]0 [place] [address] PCP - General 11/07/20 Km Wooten MD [address] [place] [address] Consulting Physician Radiation Oncology 02/14/25 documented as of this encounter
--- OUTSIDE RECORDS SUMMARY | 2025-03-04 10:14 | XMS_ITS | Encounter Summary ---
Author Organization [facility] Address [address] [id number] Care Team Providers Care Decorating Consultant Name Role Phone Tejal Saeed APRN Primary Care Provider +1 -[phone] Km Wooten MD Unavailable [phone] Reason for Referral * Consultation (Routine) - Closed Specialty Diagnoses / Procedures Referred By Contac t Referred To Contact Radiation Oncology Diagnoses Malignant neoplasm of rectum (CMS/HCC) Con Sumner MD [address] [address] Phone: tel: fax: [facility] CC Radiation [address] [place] [address] Phone: tel: fax: Referral ID Status Reason Start Date Expiration Date V isits Requested Visits Authorized [id number] Closed Specialty Services Required 02/14/2025 08/16/2026 1 1 Scheduling Instructions Rectal cancer - needs total neoadjuvant therapy. Schedule radiation onc[facility] at [facility] Scheduling medical oncology with Dr. Kaleb Bill at [facility]. * Consultation (Routine) - Authorized Specialty Diagnoses / Procedures Referred By Contac t Referred To Contact Medical Oncology Diagnoses Malignant neoplasm of rectum (CMS/HCC) Con Sumner MD [id number] [place] [address] Phone: tel: fax: Referral ID Status Reason Start Date Expiration Date Visits Requested Visits Authorized [id number] Authorized Specialty Services Required 02/14/2025 08/16/2026 1 1 Scheduling Instructions Rectal Cancer - needs total neoadjuvant therapy. Schedule medical oncology with Dr.Michael Bill at [facility] [phone]. Encounter Details Date Type Department Care Team (Latest Contact Info) Description 02/14/2025 Orders Only [facility] Mult[facility]cology Clinic 800 [place] [address] Con Sumner MD [address] [address] Malignant neoplasm of rectum (CMS/HCC) [...] EDT Hospital Encounter [facility] CC Radiation 800 [facility] [place] NA586U [place] [address] Arrived 03/12/2025 12:00 PM EDT Appointment PAV H Endoscopy 800 [place] [address] Eric Tellez MD [address] [place] [address] Scheduled Referrals Name Type Priority Associated Diagnoses [...] documented as of this encounter Care Teams Decorating Consultant Relationship Specialty Start Date End Date Tejal Saeed APRN [address]0 [place] [address] PCP - General 11/07/20 Km Wooten MD [address] [id number] [place] [address] Consulting Physician Radiation Oncology 02/14/25 documented as of this encounter
--- OUTSIDE RECORDS SUMMARY | 2025-03-04 10:14 | XMS_ITS | Encounter Summary ---
Author Organization [facility] Address [address] [place] [address] Care Team Providers Care Rectifying Attendant Name Role Phone Tejal Saeed APRN Primary Care Provider [phone] [phone] Km Wooten MD Unavailable [phone] Encounter Details Date Type Department Care Team (Latest Contact Info) Description 03/04/2025 Travel Social History Tobacco Use Types Packs/Day [...] Encounter [facility] CC Radiation [address] [id number] [place] [address] Arrived 03/12/2025 12:00 PM EDT Appointment P[facility] H Endoscopy [address] [place] [address] Eric Tellez MD [address] [place] [address] documented as of this encounter [...] documented as of this encounter Care Teams Rectifying Attendant Relationship Specialty Start Date End Date Tejal Saeed APRN [address]0 [place] [address] PCP - General 11/07/20 Km Wooten MD [address] [place] [address] Consulting Physician Radiation Oncology 02/14/25 documented as of this encounter
--- OUTSIDE RECORDS SUMMARY | 2025-03-04 10:14 | XMS_ITS | Clinical Summary ---
Author Organization [facility] Address [address] [place] [address] Care Team Providers Care Special Needs Child Caregiver Name Role Phone Tejal Saeed APRN Primary Care Provider [phone] Km Wooten MD Unavailable [phone] Allergies No known active allergies Medications atorvastatin (Lipitor) 20 MG tablet Take 1 tablet by mouth daily. 5 Active DOXYCYCLINE MONOHYDRATE PO Take 100 mg by mouth 2 times a day. Active hydrocortisone (Anusol-HC) 25 MG suppository Insert 1 suppository into the rectum 2 times a day. Active fluticasone (Flonase) 50 MCG/ACT nasal spray use 1 spray(s) in each nostril once daily 5 Active cetirizine (ZyrTEC) 10 MG tablet Take 1 tablet by mouth daily. 5 Active Active Problems Problem Noted Date Diagnosed Date Malignant neoplasm of rectum 2025 Encounters Date Type Department Care Team Description 03/04/2025 8:42 AM EDT Hospital Encounter [facility] Radiation [address] [address] Arrived 03/04/2025 Travel 03/01/2025 8:40 AM EDT Hospital Encounter [facility]iation [address] [facility] [place] [address] Km Wooten MD 02/28/2025 3:30 PM EDT Office Visit [facility] Head, Neck & Respiratory [address] [facility], 2nd [place] [address] Eric Tellez MD Adenopathy (Primary Dx) 02/28/2025 Travel 02/26/2025 Telephone [facility] Urology [address], 2nd [place] [address] Perlita Her RN 02/26/2025 Travel 02/25/2025 11:50 AM EDT Hospital Encounter [facility] Radiation [address] [facility] [address] Arrived 02/21/2025 Telephone [facility] Head[facility] Neck & Respiratory [address] [facility], 2nd [place] [address] Eric Tellez MD 02/20/2025 Telephone [facility] Urology [address], [address]nd [place] [address] Ssui Bustos 02/20/2025 Telephone [facility] Urology [address], [address] [place] [address] Susi Bustos 2025 2:44 PM EDT - 2025 11:59 PM EDT Hospital Encounter [facility] Radiation [address] [address] Km Wooten MD Malignant neoplasm of rectum (CMS/HCC) (Primary Dx) Discharge Disposition: Still a Patient 2025 Travel 02/18/2025 Orders Only [facility] Radiation [address] [address] Km Wooten MD Elevated PSA (Primary Dx) 02/14/2025 Orders Only [facility] [address] [place] [address] Con Sumner MD 02/14/2025 Telephone [facility] [address] [address] Km Wooten MD 02/14/2025 Orders Only [facility] [address] [place] [address] Con Sumner MD Malignant neoplasm of rectum (CMS/HCC) (Primary Dx) 02/11/2025 4:34 PM EDT - 02/11/2025 11:59 PM EDT Hospital Encounter [facility] Radiology [address] [place] [address] Malignant neoplasm of rectum (CMS/HCC) Discharge Disposition: Home or Self Care 02/11/2025 3:04 PM EDT - 02/11/2025 4:33 PM EDT Hospital Encounter [facility] Radiology [address] [place] [address] Malignant neoplasm of rectum (CMS/HCC) Discharge Disposition: Home or Self Care 02/11/2025 Travel 02/08/2025 Lab Requisition [facility] [address] [place] [address] Con Sumner MD Hemorrhage of anus and rectum 02/05/2025 11:00 AM EDT Office Visit [facility] [address] [place] [address] Con Sumner MD Malignant neoplasm of rectum (CMS/HCC) (Primary Dx) 02/05/2025 Travel 01/08/2025 Orders Only External Location [address] [place] [address] Provider, External 01/08/2025 Orders Only External Location [address] [place] [address] Provider, External 01/08/2025 Orders Only External Location [address] [place] [address] Provider, External from Last 3 Months Family [...] Pulse 82 02/28/2025 2:45 PM EDT Temperature 36.9 C (98.4 F) 02/05/2025 10:20 AM EDT Respiratory Rate 14 02/28/2025 2:45 PM EDT Oxygen Saturation 96% 02/28/2025 2:45 PM EDT Inhaled Oxygen Concentration - - Weight 127 kg (279 lb 5.2 oz) 02/28/2025 2:45 PM EDT Height 173.7 cm (5' 8.39 ) 02/28/2025 2:45 PM ED T Body Mass Index 41.99 02/28/2025 2:45 PM EDT Plan of Treatment Upcoming Encounters Date Type Department Care Team (Late st Contact Info) Description 03/04/2025 8:42 AM EDT Hospital Encounter [facility] Radiation [address] [facility]. [id number] [place] [address] Arrived 03/12/2025 12:00 PM EDT Appointment [facility] Endoscopy [address] [place] [address] Eric Tellez MD [address] [place] [address] Health Maintenance Due Date Last Done Comments [facility]-HIV Screening 1971 [facility]-Hepatitis C Screening 1971 [facility]-/Child/Adol SDOH Screenings 1971 [facility]- SDOH Screenings 1989 [facility]-Adult SDOH Screenings 1989 [facility]-Hepatitis B Vaccines (1 of 3 - 19+ 3-dose series) 1990 [facility]-Pneumococcal Vaccine: 50 + Years (1 of 2 - PCV) 1990 CT Colonography 02/20/2016 Colonoscopy 02/20/2016 FIT-DNA 02/20/2016 FIT 02/20/2016 FOBT 02/20/2016 Sigmoidoscopy 02/20/2016 [facility]-Colorectal Cancer Screening 02/20/2016 [id number] Vaccine (4 - season) 2025 06/24/2021, 11/08/2020, 10/11/2020 [facility]-Influenza Vaccine (#1) 2025 [...] on patient's age to complete this topic Goals Goal Patient Goal Type Associated Problems Recent Progress Patient-Stated? Author Autogenerat ed Goal Care Plan Autogenerated Problem No Lisa Johnston Procedures Procedure Name Priority Date/Time Associated Diagnosis [...] on 02/12/2025 1:00 PM Con Sumner MD IM MRI PROCEDURES Final Resul t * Surgical Pathology Consult (02/08/2025 11:05 AM EDT) Case Report Sugical Pathology Consult Case: [id number] Authorizing Provider: Con Sumner MD Collected: 02/08/20251104 Ordering Location: [facility] Lab Received: 02/08/2025 110 Pathologist: Luis Weiner DO Specimen: Colon, [id number] 02/10/2025 12:09 PM EDT [facility] Final Diagnosis DESIGNATED COLON, RECTUM; MASS, BIOPSY (OUTSIDE SLIDES; [id number]; 02/05/2025): - MODERATELY DIFFERENTIATED ADENOCARCINOMA (SEE COMMENT). - MMR BY IHC (PER REPORT): - RETAINED NUCLEAR EXPRESSION OF ALL FOUR PROTEINS (MLH1, PMS2, MSH2 AND MSH6). 02/10/2025 12:09 PM EDT [facility] at 1209 EDT Comment Correlation with endoscopic findings and imaging is recommended to determine site of tumor (colon vs rectum) given specimen designation. 02/10/2025 12:09 PM EDT [facility] Clinical Information K62.5 - Hemorrhage of anus and rectum [ICD-10-CM] 02/10/2025 12:09 PM EDT [facility] Gross Description A. [id number] Received along with a corresponding pathology report from [facility] are 5 slide(s) labeled outside case: [id number] collected on 01/31/2025. 02/10/2025 12:09 PM EDT [facility] Note: A resident was involved in the service. I attest I examined the relevant preparations for the specimens and confirmed the diagnosis or interpretation. 02/10/2025 12:09 PM EDT [facility] Tissue Colon structure / Unknown 02/08/2025 11:05 AM EDT 02/08/2025 11:05 AM EDT us Con Sumner MD LAB PATHOLOGY ORDERABLES Final Result [facility] [address] [place] [address] * CEA (02/05/2025 11:54 AM EDT) CEA, Serum <1.8 <4.0 ng/mL 02/05/2025 1:23 PM EDT [facility] Blood Venous blood specimen / Unknown Venipuncture / Unknown 02/05/2025 11:54 AM EDT 02/05/2025 12:43 PM EDT Narrative [facility] - 02/05/2025 1:23 PM EDT Normal range for smokers: < 5.5 ng/ml Normal range for non-smokers: <=4.0 ng/ml Performed by Maged electrochemiluminescent immunoassay. Results obtained with different test methods or kits cannot be used interchangeably. us Con Sumner MD LAB BLOOD ORDERABLES Final Res ult [facility] [address] [place] [address] * CT OUTSIDE IMAGES (01/08/2025 8:49 PM [...] PROCEDURES Final Result from Last 3 Months Additional Health Concerns Active Problems Noted Date Diagnosed Date Autogenerated Problem 02/28/2025 Insurance Care Teams Special Needs Child Caregiver Relationship Specialty Start Date End Date Tejal Saeed APRN [address] [place] [address] PCP - General 11/07/20 Km Wooten MD [address] [facility] [address] [place] [address] Consulting Physician Radiation Oncology 8/21/25
--- OUTSIDE RECORDS SUMMARY | 2025-03-04 10:14 | XMS_ITS | Encounter Summary ---
Author Organization [facility] Address [address] [place] [address] Care Team Providers Care Straddle Bug Driver Name Role Phone Tejal Saeed APRN Primary Care Provider [phone] Km Wooten MD Unavailable [phone] Encounter Details Date Type Department Care Team (Latest Contact Info) Description 02/26/2025 Travel Social History Tobacco Use Types Packs/Day [...] Encounter [facility] Radiation 800 [facility]. [id number] [place] [address] Arrived 03/12/2025 12:00 PM EDT Appointment [facility] Endoscopy [address] [place] [address] Eric Tellez MD [address] [place] [address] documented as of this encounter [...] documented as of this encounter Care Teams Straddle Bug Driver Relationship Specialty Start Date End Date Tejal Saeed APRN [address] [place] [address] PCP - General 11/07/20 Km Wooten MD 800 [facility] [address] [place] [address] Consulting Physician Radiation Oncology 02/14/25 documented as of this encounter
--- OUTSIDE RECORDS SUMMARY | 2025-03-04 10:14 | XMS_ITS | Encounter Summary ---
Author Organization [facility] Address [address] [place] [address] Care Team Providers Care Lube Attendant Name Role Phone Tejal Saeed APRN Primary Care Provider [phone] [phone] Km Wooten MD Unavailable [phone] Encounter Details Date Type Department Care Team (Late Contact Info) Description 02/14/2025 Orders Only [facility] [address] [place] [address] Con Sumner MD [address] [facility] [address] [place] [address] Social History Tobacco Use Types [...] Department Care Team (Late Contact Info) Description 03/04/2025 8:42 AM EDT Hospital Encounter [facility] Radiation 800 [facility]. [id number] [place] [address] Arrived 03/12/2025 12:00 PM EDT Appointment [facility] Endoscopy [address] [place] [address] Eric Tellez MD [address] [place] [address] documented as of this encounter [...] documented as of this encounter Care Teams Lube Attendant Relationship Specialty Start Date End Date Tejal Saeed APRN [facility] [place] [address] PCP - General 11/07/20 Km Wooten MD [address] [place] [address] Consulting Physician Radiation Oncology 02/14/25 documented as of this encounter
--- OUTSIDE RECORDS SUMMARY | 2025-03-04 10:14 | XMS_ITS | Encounter Summary ---
Author Organization [facility] Address [address] [id number] Care Team Providers Care Service Desk Agent Name Role Phone Tejal Saeed APRN Primary Care Provider [phone] Km Wooten MD Unavailable [phone] Encounter Details Date Type Department Care [...] things Not at all 2025 2:59 PM AMORT Lissa Hanley Feeling down, depressed, or hopeless [...] Not at all 2025 2: 59 PM iLssa Angulo A Feeling bad about yourself - [...] Encounter [facility] Radiation [address] [place] [address] Arrived 03/12/2025 12:00 PM EDT Appointment [facility] Endoscopy [address] [place] [address] Eric Tellez MD [address] [place] [address] documented as of this encounter [...] documented as of this encounter Care Teams Service Desk Agent Relationship Specialty Start Date End Date Tejal Saeed APRN [facility] [place] [address] PCP - General 11/07/20 Km Wooten MD [address] [place] [address] Consulting Physician Radiation Oncology 02/14/25 documented as of this encounter
--- OUTSIDE RECORDS SUMMARY | 2025-03-04 10:14 | XMS_ITS | Encounter Summary ---
Author Organization [facility] Address [address] [place] [address] Care Team Providers Care Locomotive Repairer Diesel Name Role Phone Tejal Saeed APRN Primary Care Provider [phone] Encounter Details Date Type Department Care Team [...] EDT Hospital Encounter [facility] Radiation 800 [facility]. [id number] [place] [address] Arrived 03/12/2025 12:00 PM EDT Appointment [facility] Endoscopy [address] [place] [address] Eric Tellez MD [address] [place] [address] documented as of this encounter [...] documented as of this encounter Care Teams Locomotive Repairer Diesel Relationship Specialty Start Date End Date Tejal Saeed APRN [address] [place] [address] PCP - General 11/07/20 documented as of this encounter
--- OUTSIDE RECORDS SUMMARY | 2025-03-04 10:14 | XMS_ITS | Encounter Summary ---
Author Organization [facility] Address [address] [place] [address] Care Team Providers Care Incident Manager Name Role Phone Tejal Saeed APRN Primary Care Provider [phone] Km Wooten MD Unavailable [phone] Encounter Details Date Type Department Care Team (Late st Contact Info) Description 01/08/2025 Orders Only External Location [address] [place] [address] Provider, External Social History Tobacco Use Types [...] EDT Hospital Encounter [facility] Radiation 800 [facility]. [id number] [place] [address] Arrived 03/12/2025 12:00 PM EDT Appointment [facility] Endoscopy [address] [place] [address] Eric Tellez MD [address] [place] [address] documented as of this encounter Procedures Procedure [...] on filedocumented in this encounter Care Teams Incident Manager Relationship Specialty Start Date End Date Tejal Saeed APRN [address] [place] [address] PCP - General 11/07/20 Km Wooten MD [address] [facility] [address] [place] [address] Consulting Physician Radiation Oncology 02/14/25 documented as of this encounter
--- OUTSIDE RECORDS SUMMARY | 2025-03-04 10:14 | XMS_ITS | Encounter Summary ---
Author Organization [facility] Address [address] [place] [address] Care Team Providers Care Director Veterinary Name Role Phone Tejal Saeed APRN Primary Care Provider [phone] Km Wooten MD Unavailable Encounter Details Date Type Department Care Team (Late st Contact Info) Description 02/26/2025 Telephone [facility] [address], [address] [place] [address] Perlita Her I, RN [facility] Social History Tobacco Use Types Packs/Day Years [...] encounter Miscellaneous Notes * Telephone Encounter - Perlita Her I, RN - 02/26/2025 3:00 PM EDT Called to schedule urology appointment; no answer, left vm with name/number. documented in this encounter Plan of Treatment Upcoming Encounters Date Type Department Care Team (Late st Contact Info) Description 03/04/2025 8:42 AM EDT Hospital Encounter [facility] Radiation [id number] [place] [address] Arrived 03/12/2025 12:00 PM EDT Appointment [facility] Endoscopy [address] [place] [address] Eric Tellez MD [address] [place] [address] documented as of this encounter [...] as of this encounter Care Teams Director Veterinary Relationship Specialty Start Date End Date Tejal Saeed APRN [address] [place] [address] PCP - General 11/07/20 Km Wooten MD [address] [place] [address] Consulting Physician Radiation Oncology 02/14/25 documented as of this encounter
--- OUTSIDE RECORDS SUMMARY | 2025-03-04 10:14 | XMS_ITS | Encounter Summary ---
Author Organization [facility] Address [address] [place] [id number] Care Team Providers Care Telemarketer Name Role Phone Tejal Saeed APRN Primary Care Provider [phone] Encounter Details Date Type Department Care Team [...] Encounter [facility] Radiation [address] [place] [address] Arrived 03/12/2025 12:00 PM EDT Appointment [facility] Endoscopy [address] [place] [address] Eric Tellez MD [address] [place] [address] documented as of this encounter Visit Diagnoses [...] documented as of this encounter Care Teams Telemarketer Relationship Specialty Start Date End Date Tejal Saeed APRN [address] [place] [address] PCP - General 11/07/20 documented as of this encounter
--- OUTSIDE RECORDS SUMMARY | 2025-03-04 10:14 | XMS_ITS | Encounter Summary ---
Author Organization [facility] Address [address] [place] [address] Care Team Providers Care Chocolate Production Machine Operator Name Role Phone Tejal Saeed APRN Primary Care Provider [phone] Km Wooten MD Unavailable [phone] Encounter Details Date Type Department Care Team (Late Contact Info) Description 02/21/2025 Telephone [facility] Head, Neck & Respiratory [address] [place] [address] Eric Tellez MD [address] [place] [address] Social History Tobacco Use Types [...] Encounter [facility] Radiation [address] [place] [address] Arrived 03/12/2025 12:00 PM EDT Appointment [facility] Endoscopy [address] [place] [address] Eric Tellez MD [address] [place] [address] documented as of this encounter [...] documented as of this encounter Care Teams Chocolate Production Machine Operator Relationship Specialty Start Date End Date Tejal Saeed APRN [facility] [place] [address] PCP - General 11/07/20 Km Wooten MD [address] [place] [address] Consulting Physician Radiation Oncology 02/14/25 documented as of this encounter
--- OUTSIDE RECORDS SUMMARY | 2025-03-04 10:14 | XMS_ITS | Encounter Summary ---
Author Organization [facility] Address [address] [place] [address] Care Team Providers Care Advertising Director Name Role Phone Tejal Saeed APRN Primary Care Provider [phone] Km Wooten MD Unavailable [phone] Encounter Details Date Type Department Care Team (Late st Contact Info) Description 02/20/2025 Telephone [place] [facility] [address] [place] [address] [place] [address] Social History Tobacco Use Types Packs/Day Years [...] appointment made, need PSA lab test, called [facility], she will fax to our office. Susi Bustos RN documented in this encounter Plan of Treatment Upcoming Encounters Date Type Department Care Team (Late st Contact Info) Description 03/04/2025 8:42 AM EDT Hospital Encounter [facility] Radiation [address] [place] [address] Arrived 03/12/2025 12:00 PM EDT Appointment [facility] Endoscopy [address] [place] [address] Eric Tellez MD [address] [place] [address] documented as of this encounter [...] documented as of this encounter Care Teams Advertising Director Relationship Specialty Start Date End Date Tejal Saeed APRN [address] [place] [address] PCP - General 11/07/20 Km Wooten MD [address] [place] [address] Consulting Physician Radiation Oncology 02/14/25 documented as of this encounter
--- OUTSIDE RECORDS SUMMARY | 2025-03-04 10:14 | XMS_ITS | Encounter Summary ---
Author Organization [facility] Address [address] [place] [address] Care Team Providers Care Template Maker Name Role Phone Tejal Saeed APRN Primary Care Provider [phone] Km Wooten MD Unavailable [phone] Reason for Referral * Consultation (Urgent) - Closed Specialty Diagnoses / Procedures Referred By Contwagner maria Referred To Contact Urology Diagnoses Elevated PSA Km Wooten MD [address] [place] [address] Phone: tel: fax: [facility] [address] [place] [address] Phone: tel: fax: Referral ID Status Reason Start Date Expiration Date V isits Requested Visits Authorized [id number] Closed Specialty Services Required 02/18/2025 08/20/2026 1 1 Scheduling Instructions History of elevated PSA of 8.7, concern for ? Prostate cancer in a gentleman with newly diagnosed rectal cancer Encounter Details Date Type Department Care Team (Late st Contact Info) Description 02/18/2025 Orders Only [facility] Radiation [id number] [place] [address] Km Wooten MD [address] [place] [address] Elevated PSA (Primary Dx) Social History Tobacco [...] [facility] CC Radiation 800 [facility]. [id number] [place] [address] Arrived 03/12/2025 12:00 PM EDT Appointment [facility] Endoscopy [address] [place] [address] Eric Tellez MD [address] [place] [address] Scheduled Referrals Name Type Priority [...] documented as of this encounter Care Teams Template Maker Relationship Specialty Start Date End Date Tejal Saeed APRN [address] [place] [address] PCP - General 11/07/20 Km Wooten MD [address] [address] Consulting Physician Radiation Oncology 02/14/25 documented as of this encounter
--- OUTSIDE RECORDS SUMMARY | 2025-03-04 10:14 | XMS_ITS | Encounter Summary ---
Author Organization [facility] Address [address] [id number] Care Team Providers Care Director Of Guidance Name Role Phone Tejal Saeed APRN Primary Care Provider [phone] Km Wooten MD Unavailable [phone] Encounter Details Date Type Department Care Team (Late Contact Info) Description 02/08/2025 Lab Requisition [facility] Lab [address] [place] [address] Con Sumner MD [address] [facility] [address] [place] [address] Hemorrhage of anus and rectum [...] EDT Hospital Encounter [facility] Radiation 800 [facility]. [id number] [place] [address] Arrived 03/12/2025 12:00 PM EDT Appointment [facility] Endoscopy [address] [place] [address] Eric Tellez MD [address] [place] [address] documented as of this encounter Procedures Procedure Name Priority Date/Time Associated Diagnosis Comments SURGICAL PATHOLOGY CONSULT Routine 02/08/2025 11:05 AM EDT Hemorrhage of anus and rectum documented in this encounter Results * Surgical Pathology Consult (02/08/2025 11:05 AM EDT) Case Report Sugical Pathology Consult Case: [id number] Authorizing Provider: Con Sumner MD Collected: 02/08/20251104 Ordering Location: [facility] H Lab Received: 02/08/2025 110 Pathologist: Luis Weiner DO Specimen: Colon, [id number] 02/10/2025 12:09 PM EDT [facility] Final Diagnosis DESIGNATED COLON, RECTUM; MASS, BIOPSY (OUTSIDE SLIDES; [id number]; 02/05/2025): - MODERATELY DIFFERENTIATED ADENOCARCINOMA (SEE COMMENT). - MMR BY IHC (PER REPORT): - RETAINED NUCLEAR EXPRESSION OF ALL FOUR PROTEINS (MLH1, PMS2, MSH2 AND MSH6). 02/10/2025 12:09 PM EDT [facility] at 1209 EDT Comment Correlation with endoscopic findings and imaging is recommended to determine site of tumor (colon vs rectum) given specimen designation. 02/10/2025 12:09 PM EDT [facility] Clinical Information K62.5 - Hemorrhage of anus and rectum [ICD-10-CM] 02/10/2025 12:09 PM EDT [facility] Gross Description A. [id number] Received along with a corresponding pathology report from [facility]ology [facility]ology Laboratory are 5 slide(s) labeled outside case: [id number] collected on 01/31/2025. 02/10/2025 12:09 PM EDT [facility] Note: A resident was involved in the service. I attest I examined the relevant preparations for the specimens and confirmed the diagnosis or interpretation. 02/10/2025 12:09 PM EDT [facility] Tissue Colon structure / Unknown 02/08/2025 11:05 AM EDT 02/08/2025 11:05 AM EDT us Con Sumner MD LAB PATHOLOGY ORDERABLES Final Result [facility] [address] [place] [address] documented in this encounter Visit Diagnoses Diagnosis [...] as of this encounter Care Teams Director Of Guidance Relationship Specialty Start Date End Date Tejal Saeed APRN [address] [place] [address] PCP - General 11/07/20 Km Wooten MD [address] [facility] [address] [place] [address] Consulting Physician Radiation Oncology 02/14/25 documented as of this encounter
--- OUTSIDE RECORDS SUMMARY | 2025-03-04 10:14 | XMS_ITS | Encounter Summary ---
Author Organization [facility] Address [address] [place] [address] Care Team Providers Care Underground Foreman Name Role Phone Tejal Saeed APRN Primary Care Provider [phone] Km Wooten MD Unavailable [phone] Encounter Details Date Type Department Care Team (Latest Contact Info) Description 02/28/2025 Travel Social History Tobacco Use Types Packs/Day [...] EDT Hospital Encounter [facility] [address] [id number] [place] [address] Arrived 03/12/2025 12:00 PM EDT Appointment [facility] [address] [place] [address] Eric Tellez MD [address] [place] [address] documented as of this encounter [...] documented as of this encounter Care Teams Underground Foreman Relationship Specialty Start Date End Date Tejal Saeed APRN [address] [place], [place] [id number] PCP - General 11/07/20 Km Wooten MD [address] [facility] [address] [place] [address] Consulting Physician Radiation Oncology 02/14/25 documented as of this encounter
--- OUTSIDE RECORDS SUMMARY | 2025-03-04 10:14 | XMS_ITS | Encounter Summary ---
Author Organization [facility] Address [address] [id number] Care Team Providers Care Cable Swager Name Role Phone Tejal Saeed APRN Primary Care Provider [phone] Km Wooten MD Unavailable [phone] Encounter Details Date Type Department Care Team (Late st Contact Info) Description 02/20/[address] [facility] [address], [address] [place] [address] [place] [address] Social History Tobacco Use Types Packs/Day Years [...] Encounter [facility] [id number] [place] [address] Arrived 03/12/2025 12:00 PM EDT Appointment [facility] [address] [place] [address] Eric Tellez MD [address] [place] [address] documented as of this encounter [...] documented as of this encounter Care Teams Cable Swager Relationship Specialty Start Date End Date Tejal Saeed APRN [address] [place] [address] PCP - General 11/07/20 Km Wooten MD [address] [place] [address] Consulting Physician Radiation Oncology 02/14/25 documented as of this encounter
[2025-03-05 10:14] LABS: PSA, Free 0.75 ng/mL
== END 2025-03-04 23:59 | disposition home or self-care (01) ==
LOC: LAB 10:12
PROVIDERS: PCP Family Medicine; Visit Provider Urology
DX: C20 Malignant neoplasm of rectum (principal); R97.20 Elevated prostate specific antigen [PSA]
CPT/HCPCS: 36415; 84153; 84154

== ENCOUNTER 2025-03-29 09:02 | Outpatient (CLI) | payer OTHER, SELFPAY ==
--- OUTSIDE RECORDS SUMMARY | 2025-02-05 11:00 | XMS_ITS | Encounter Summary ---
Author Organization [facility] Address [address] [place] [address] Care Team Providers Care Roll Forming Machine Set Up Operator Name Role Phone Tejal Saeed APRN Primary Care Provider [phone] Reason for Referral * Imaging (Routine) - Closed Specialty Diagnoses / Procedures Referred By Contac t Referred To Contact Radiology Diagnoses Malignant neoplasm of rectum (CMS/HCC) Procedures CT Chest w IV Contrast Con Sumner MD [address] [address] Phone: tel: fax: Referral ID Status Reason Start Date Expiration Date Visits Re quested Visits Authorized [id number] Closed 02/05/2025 08/07/2026 1 1 * Imaging (Routine) - Closed Specialty Diagnoses / Procedures Referred By Contac t Referred To Contact Radiology Diagnoses Malignant neoplasm of rectum (CMS/HCC) Procedures MR Pelvis w and wo IV Contrast Con Sumner MD [address] [address] Phone: tel: fax: Referral ID Status Reason Start Date Expiration Date Visits Re quested Visits Authorized [id number] Closed 02/05/2025 08/07/2026 1 1 Reason for Visit * Reason Comments Consult Rectal Mass * Consultation (Routine) - Closed Specialty Diagnoses / Procedures Referred By Contact Referred To Contact Surgical Oncology / Hematology and Oncology Diagnoses Rectal mass Skip Abbott MD 12[address] [facility] [address] [place] [address] Phone: tel:[phone] fax: [facility] Multidisciplinary Oncology Clinic [address] [place] [address] Phone: tel: fax: Referral ID Status Reason Start Date Expiration Date V isits Requested Visits Authorized [id number] Closed Specialty Services Required 02/01/2025 08/03/2026 1 1 Encounter Details Date Type Department Care Team (Latest Contact Info) Description 02/05/2025 11:00 AM EDT Office Visit [facility] Multidisciplinary Oncology Clinic [address] [place] [address] Con Sumner MD [id number] [place] [address] Malignant neoplasm of rectum (CMS/HCC) (Primary Dx) [...] 02/05/2025 10:24 AM EDT Sugar Chi * How difficult have these problems made it for you to do your work, take care of things at home, or get along with other people? Answer Date of Assessment Author Not difficult at all 02/05/2025 10:24 AM EDT Sugar Zavaleta documented as of this encounter Miscellaneous Notes * Progress Notes - Itzel Jo MD - 02/05/2025 11:00 AM EDT [facility] Colon and Rectal Surgery [facility] History and Physical Index Visit TRAVON Sumner MD FACS FASCRS Patient Name: Carlos Tripp Date of : 1970 (54 y.o. ) Date of Service: 02/05/25 Chief Complaint: Rectal mass Referring MD: Skip Abbott MD glue specialty supervisor: Tejal Saeed APRN Consulting MD: Yandy Sumner [...] of lymphadenopathy. [facility] and was found to have a large rectal cavitary masswith heaped margins measuring approximately 5-6 cm in length, encompassing more than half of the circumference of the lumen and extending into the anal verge. This was his first colonoscopy. Multiplebiopsies were taken with pathology pending at time of dictation. Patient was subsequently referred to [facility] for evaluation. Today, patient confirms the [...] significant for HLD. Denies HTN, DM, prior [place], seizure, stroke, prior DVT/PE. Not on blood thinners or steroids. Surgical history significant for laparoscopic cholecystectomy 20 years ago. Can independently perform ADLs. 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 Present at [facility] LOWER GI TUMOR BOARD. Return to clinic after completion of chemotherapy and after completion of chemoradiation. documented in this encounter Plan of Treatment Upcoming Encounters Date Type Department Care Team (Late st Contact Info) Description 03/29/2025 2:10 PM EDT Appointment [facility] [address] [facility]. [id number] [place] [address] 04/01/2025 2:10 PM EDT Appointment [facility] [id number] [place] [address] 04/02/2025 2:10 PM EDT Appointment [facility] [address] [address] 04/03/2025 2:10 PM EDT Appointment [facility] [address] [address] 04/04/2025 2:10 PM EDT Appointment [facility] [address] [address] 04/05/2025 2:10 PM EDT Appointment [facility] [address] [address] 04/08/2025 2:10 PM EDT Appointment [facility] [address] [address] 04/09/2025 2:10 PM EDT Appointment [facility] [address] [address] 04/10/2025 2:10 PM EDT Appointment [facility] [address] [address] 04/11/2025 2:10 PM EDT Appointment [facility] [address] [address] 04/12/2025 2:10 PM EDT Appointment [facility] [address] [address] 04/15/2025 2:10 PM EDT Appointment [facility] [address] [address] 04/16/2025 2:10 PM EDT Appointment [facility] [address] [address] 04/17/2025 2:10 PM EDT Appointment [facility] [address] [address] 04/18/2025 2:10 PM EDT Appointment [facility] [address] [address] 04/19/2025 2:10 PM EDT Appointment [facility] [address] [place] [address] 04/22/2025 2:10 PM EDT Appointment [facility] [address] [place] [address] 04/23/2025 2:10 PM EDT Appointment [facility] [address] [place] [address] 04/24/2025 2:10 PM EDT Appointment [facility] [id number] [place] [address] documented as of this encounter Procedures Procedure [...] <1.8 <4.0 ng/mL 02/05/2025 1:23 PM EDT [facility] Blood Venous blood specimen / Unknown Venipuncture / Unknown 02/05/2025 11:54 AM EDT 02/05/2025 12:43 PM EDT Narrative [facility] - 02/05/2025 1:23 PM EDT Normal range for smokers: < 5.5 ng/ml Normal range for non-smokers: <=4.0 ng/ml Performed by Maged electrochemiluminescent immunoassay. Results obtained with different test methods or kits cannot be used interchangeably. us Con Sumner MD LAB BLOOD ORDERABLES Final Res ult [facility] [address] [place] [address] documented in this encounter Visit Diagnoses Diagnosis Malignant neoplasm of rectum (CMS/HCC)- Primary Malignant neoplasm of rectum Malignant neoplasm of rectum (CMS/HCC) Malignant neoplasm of rectum Malignant neoplasm of rectum (CMS/HCC) Malignant neoplasm of rectum documented in this encounter Additional Health Concerns Assessment Noted Time PHQ-9 Depression Total Score: 0 02/06/20 10:24 AM EDT A fall risk assessment has been complete d for the patient 02/05/2025 10:24 AM EDT A Body Mass Index follow-up plan has been documented for the patient 02/05/2025 12:03 PM EDT documented as of this encounter Care Teams Roll Forming Machine Set Up Operator Relationship Specialty Start Date End Date Tejal Saeed APRN [address] [place] [address] PCP - General 11/07/20 03/11/25 documented as of this encounter
--- OUTSIDE RECORDS SUMMARY | 2025-02-11 15:04 | XMS_ITS | Encounter Summary ---
Author Organization [facility] Address [address] [id number] Care Team Providers Care Fountain Pen Turner Name Role Phone Tejal Saeed APRN Primary Care Provider [phone] [phone] Reason for Referral * Imaging (Routine) - Closed Specialty Diagnoses / Procedures Referred By Contac t Referred To Contact Radiology Diagnoses Malignant neoplasm of rectum (CMS/HCC) Procedures MR Pelvis w and wo IV Contrast Con Sumner MD [address] [address] Phone: tel: fax: Referral ID Status Reason Start Date Expiration Date Visits Re quested Visits Authorized [id number] Closed 02/05/2025 08/07/2026 1 1 Reason for Visit * Imaging (Routine) - Closed Specialty Diagnoses / Procedures Referred By Alice maria Referred To Contact Radiology Diagnoses Malignant neoplasm of rectum (CMS/HCC) Procedures MR Pelvis w and wo IV Contrast Con Sumner MD [address] [place] [address] Phone: tel: fax: Referral ID Status Reason Start Date Expiration Date Visits Re quested Visits Authorized [id number] Closed 02/05/2025 08/07/2026 1 1 Encounter Details Date Type Department Care Team (Latest Contact Info) Description 02/11/2025 3:04 PM EDT - 02/11/2025 4:33 PM EDT Hospital Encounter [facility] Radiology [address] [place] [address] Malignant neoplasm of rectum (CMS/HCC) Discharge Disposition: [...] Appointment [facility] [address] [id number] [place] [address] 04/01/2025 2:10 PM EDT Appointment [facility] [address] [id number] [place] [address] 04/02/2025 2:10 PM EDT Appointment [facility] [address] [address] 04/03/2025 2:10 PM EDT Appointment [facility] [address] [address] 04/04/2025 2:10 PM EDT Appointment [facility] [address] [address] 04/05/2025 2:10 PM EDT Appointment [facility] [address] [address] 04/08/2025 2:10 PM EDT Appointment [facility] [address] [address] 04/09/2025 2:10 PM EDT Appointment [facility] [address] [address] 04/10/2025 2:10 PM EDT Appointment [facility] [address] [address] 04/11/2025 2:10 PM EDT Appointment [facility] [address] [address] 04/12/2025 2:10 PM EDT Appointment [facility] [address] [address] 04/15/2025 2:10 PM EDT Appointment [facility] [address] [address] 04/16/2025 2:10 PM EDT Appointment [facility] [address] [address] 04/17/2025 2:10 PM EDT Appointment [facility] [address] [address] 04/18/2025 2:10 PM EDT Appointment [facility] [address] [address] 04/19/2025 2:10 PM EDT Appointment [facility] [address] [place] [address] 04/22/2025 2:10 PM EDT Appointment [facility] [address] [place] [address] 04/23/2025 2:10 PM EDT Appointment [facility] [address] [place] [address] 04/24/2025 2:10 PM EDT Appointment [facility] [address] [place] [address] documented as of this encounter Procedures Procedure [...] signing this report, I, the attending physician, attliviaat I have personally reviewed the images/data for [...] documented as of this encounter Care Teams Fountain Pen Turner Relationship Specialty Start Date End Date Tejal Saeed APRN [facility] [place] [address] PCP - General 11/07/20 03/11/25 documented as of this encounter
--- OUTSIDE RECORDS SUMMARY | 2025-02-11 16:34 | XMS_ITS | Encounter Summary ---
Author Organization [facility] Address [address] [place] [address] Care Team Providers Care Open Pit Quarry Supervisor Name Role Phone Tejal Saeed APRN Primary Care Provider [phone] Reason for Referral * Imaging (Routine) - Closed Specialty Diagnoses / Procedures Referred By Alice maria Referred To Contact Radiology Diagnoses Malignant neoplasm of rectum (CMS/HCC) Procedures CT Chest w IV Contrast Con Sumner MD [address] [address] Phone: tel: fax: Referral ID Status Reason Start Date Expiration Date Visits Re quested Visits Authorized [id number] Closed 02/05/2025 08/07/2026 1 1 Reason for Visit * Imaging (Routine) - Closed Specialty Diagnoses / Procedures Referred By Alice maria Referred To Contact Radiology Diagnoses Malignant neoplasm of rectum (CMS/HCC) Procedures CT Chest w IV Contrast Con Sumner MD [address] [address] Phone: tel: fax: Referral ID Status Reason Start Date Expiration Date Visits Re quested Visits Authorized [id number] Closed 02/05/2025 08/07/2026 1 1 Encounter Details Date Type Department Care Team (Latest Contact Info) Description 02/11/2025 4:34 PM EDT - 02/11/2025 11:59 PM EDT Hospital Encounter [facility] [address] [place] [address] Malignant neoplasm of rectum (CMS/HCC) Discharge Disposition: [...] Appointment [facility] [address] [id number] [place] [address] 04/01/2025 2:10 PM EDT Appointment [facility] [id number] [place] [address] 04/02/2025 2:10 PM EDT Appointment [facility] [address] [address] 04/03/2025 2:10 PM EDT Appointment [facility] [address] [address] 04/04/2025 2:10 PM EDT Appointment [facility] [address] [address] 04/05/2025 2:10 PM EDT Appointment [facility] [address] [address] 04/08/2025 2:10 PM EDT Appointment [facility] [address] [address] 04/09/2025 2:10 PM EDT Appointment [facility] [address] [address] 04/10/2025 2:10 PM EDT Appointment [facility] [address] [address] 04/11/2025 2:10 PM EDT Appointment [facility] [address] [address] 04/12/2025 2:10 PM EDT Appointment [facility] [address] [address] 04/15/2025 2:10 PM EDT Appointment [facility] [address] [address] 04/16/2025 2:10 PM EDT Appointment [facility] [address] [address] 04/17/2025 2:10 PM EDT Appointment [facility] [address] [address] 04/18/2025 2:10 PM EDT Appointment [facility] [address] [address] 04/19/2025 2:10 PM EDT Appointment [facility] [address] [place] [address] 04/22/2025 2:10 PM EDT Appointment [facility] [address] [place] [address] 04/23/2025 2:10 PM EDT Appointment [facility] [address] [place] [address] 04/24/2025 2:10 PM EDT Appointment [facility] [address] [place] [address] documented as of this encounter Procedures Procedure [...] documented as of this encounter Care Teams Open Pit Quarry Supervisor Relationship Specialty Start Date End Date Tejal Saeed APRN [address] [place] [address] PCP - General 11/07/20 03/11/25 documented as of this encounter
--- OUTSIDE RECORDS SUMMARY | 2025-02-19 14:44 | XMS_ITS | Encounter Summary ---
Author Organization [facility] Address [address] [id number] Care Team Providers Care Commercial Artist Lettering Name Role Phone Tejal Saeed APRN Primary Care Provider [phone] Moreno Duarte MD Unavailable [phone] Reason for Referral * Radiation Therapy (Routine) - Authorized Specialty Diagnoses / Procedures Referred By Contac t Referred To Contact Radiation Oncology Diagnoses Malignant neoplasm of rectum (CMS/HCC) Procedures Rad Onc Intent to Treat Rad Onc Intent to Treat Moreno Duarte MD [address] [address] Phone: tel: fax: [facility] 800 [facility] [address] Phone: tel: fax: Referral ID Status Reason Start Date Expiration Date Visits Requested Visits Authorized [id number] Authorized Perform Procedure 03/01/2025 08/29/2025 25 25 * Consultation (Routine) - Closed Specialty Diagnoses / Procedures Referred By Contac t Referred To Contact Pulmonology Diagnoses Malignant neoplasm of rectum (CMS/HCC) Moreno Duarte MD [address] [address] Phone: tel: fax: [facility] [address] [place] [address] Phone: tel: fax: Referral ID Status Reason Start Date Expiration Date V isits Requested Visits Authorized [id number] Closed Specialty Services Required 2025 08/21/2026 1 1 Scheduling Instructions Biopsy concerning mediastinal lymph nodes * Consultation (Routine) - Closed Specialty Diagnoses / Procedures Referred By Contac t Referred To Contact Radiation Oncology Diagnoses Malignant neoplasm of rectum (CMS/HCC) Con Sumner MD [address] [address] Phone: tel: fax: [facility] [address] [address] Phone: tel: fax: Referral ID Status Reason Start Date Expiration Date V isits Requested Visits Authorized [id number] Closed Specialty Services Required 02/14/2025 08/16/2026 1 1 Scheduling Instructions Rectal cancer - needs total neoadjuvant therapy. Schedule radiation oncology at [facility] Scheduling medical oncology with Dr. Kaleb Bill at [facility]. Reason for Visit * Reason Comments Consult * Consultation (Routine) - Closed Specialty Diagnoses / Procedures Referred By Contac t Referred To Contact Radiation Oncology Diagnoses Malignant neoplasm of rectum (CMS/HCC) Con Sumner MD [address] [address] Phone: tel: fax: [facility] [address] [address] Phone: tel: fax: Referral ID Status Reason Start Date Expiration Date V isits Requested Visits Authorized [id number] Closed Specialty Services Required 02/14/2025 08/16/2026 1 1 Encounter Details Date Type Department Care Team (Latest Contact Info) Description 2025 2:44 PM EDT - 2025 11:59 PM EDT Hospital Encounter [facility] [id number] [place] [address] Moreno Duarte MD [address] [place] [address] Malignant neoplasm of rectum (CMS/HCC) [...] No Risk Indicated 2025 2:59 PM EDT Lissa Hanley * How difficult have these problems [...] Miscellaneous Notes * Addendum Note - Moreno Duatre MD - 2025 3:00 PM EDTAddended by: [...] 02/05/25 COLON, RECTUM; MASS, BIOPSY (OUTSIDE SLIDES; [id number]; 02/05/2025): - MODERATELY DIFFERENTIATED ADENOCARCINOMA (SEE COMMENT). [...] Scheduled tomorrow with Dr. Kaleb Bill at [facility] in [place]. Referral sent to Pulmonology for consideration of biopsy for mediastinal lymph nodes. Thank you for allowing us to participate in the care of Carlos Tripp. Future Appointments Date Time Provider Department Center 03/01/2025 9:00 AM Moreno Duarte MD [facility] Orders Placed This Encounter Procedures Comprehensive metabolic [...] Appointment [facility] [address] [address] 04/01/2025 2:10 PM EDT Appointment [facility] [address] [id number] 04/02/2025 2:10 PM EDT Appointment [facility] [address] [address] 04/03/2025 2:10 PM EDT Appointment [facility] [address] [id number] 04/04/2025 2:10 PM EDT Appointment [facility] [address] [id number] 04/05/2025 2:10 PM EDT Appointment [facility] [address] [id number] 04/08/2025 2:10 PM EDT Appointment [facility] [address] [id number] 04/09/2025 2:10 PM EDT Appointment [facility] [address] [id number] 04/10/2025 2:10 PM EDT Appointment [facility] [address] [phone] 04/11/2025 2:10 PM EDT Appointment [facility] [address] [id number] 04/12/2025 2:10 PM EDT Appointment [facility] [address] [address] 04/15/2025 2:10 PM EDT Appointment [facility] [address] [address] 04/16/2025 2:10 PM EDT Appointment [facility] [address] [address] 04/17/2025 2:10 PM EDT Appointment [facility] [address] [address] 04/18/2025 2:10 PM EDT Appointment [facility] [address] [address] 04/19/2025 2:10 PM EDT Appointment [facility] [address] [address] 04/22/2025 2:10 PM EDT Appointment [facility] [address] [address] 04/23/2025 2:10 PM EDT Appointment [facility] [address] [address] 04/24/2025 2:10 PM EDT Appointment [facility] [address] [address] Scheduled Orders Name Type Priority Associated Diagnoses [...] documented as of this encounter Care Teams Commercial Artist Lettering Relationship Specialty Start Date End Date Tejal Saeed APRN [address] [place] [address] PCP - General 11/07/20 03/11/25 Moreno Duarte MD [address] [facility] [address] [place] [address] Consulting Physician Radiation Oncology 02/14/25 documented as of this encounter
--- OUTSIDE RECORDS SUMMARY | 2025-02-25 11:50 | XMS_ITS | Encounter Summary ---
Author Organization [facility] Address [address] [id number] Care Team Providers Care Spinning Room Worker Name Role Phone Tejal Saeed APRN Primary Care Provider [phone] Km Wooten MD Unavailable Encounter Details Date Type Department Care Team (Latest Contact Info) Description 02/25/2025 11:50 AM EDT - 02/25/2025 11:59 PM EDT Hospital Encounter [facility] Radiation [id number] [place] [address] Discharge Disposition: Still a Patient Social History [...] Appointment [facility] [address] [address] 04/01/2025 2:10 PM EDT Appointment [facility] [address] [address] 04/02/2025 2:10 PM EDT Appointment [facility] Radiation [address] [address] 04/03/2025 2:10 PM EDT Appointment [facility] [address] [address] 04/04/2025 2:10 PM EDT Appointment [facility] [address] [address] 04/05/2025 2:10 PM EDT Appointment [facility] Radiation [address] [address] 04/08/2025 2:10 PM EDT Appointment [facility] Radiation [address] [address] 04/09/2025 2:10 PM EDT Appointment [facility] Radiation [address] [address] 04/10/2025 2:10 PM EDT Appointment [facility] [address] [address] 04/11/2025 2:10 PM EDT Appointment [facility] [address] [address] 04/12/2025 2:10 PM EDT Appointment [facility] Radiation [address] [address] 04/15/2025 2:10 PM EDT Appointment [facility] [id number] [place] [address] 04/16/2025 2:10 PM EDT Appointment [facility] [id number] [place] [address] 04/17/2025 2:10 PM EDT Appointment [facility] [address] [place] [address] 04/18/2025 2:10 PM EDT Appointment [facility] Radiation [address] [address] 04/19/2025 2:10 PM EDT Appointment [facility] Radiation [address] [place] [address] 04/22/2025 2:10 PM EDT Appointment [facility] Radiation [address] 04/23/2025 2:10 PM EDT Appointment [facility] Radiation [address] [address] 04/24/2025 2:10 PM EDT Appointment [facility] Radiation [address] [place] [address] documented as of this encounter Visit Diagnoses [...] documented as of this encounter Care Teams Spinning Room Worker Relationship Specialty Start Date End Date Tejal Saeed APRN [address] [place] [address] PCP - General 11/07/20 03/11/25 Km Wooten MD 800 [facility] [address] [place] [address] Consulting Physician Radiation Oncology 02/14/25 documented as of this encounter
--- OUTSIDE RECORDS SUMMARY | 2025-02-28 15:30 | XMS_ITS | Encounter Summary ---
Author Organization [facility] Address [address] [place] [address] Care Team Providers Care Brownell Operator Name Role Phone Tejal Saeed APRN Primary Care Provider [phone] Km Wooten MD Unavailable [phone] Reason for Visit * Reason Comments New Patient * Consultation (Routine) - Closed Specialty Diagnoses / Procedures Referred By Contac t Referred To Contact Pulmonology Diagnoses Malignant neoplasm of rectum (CMS/HCC) Km Wooten MD [address] [facility] [address] [place] [address] Phone: tel: fax: [facility] [address] [place] [address] Phone: tel: fax: Referral ID Status Reason Start Date Expiration Date V isits Requested Visits Authorized [id number] Closed Specialty Services Required 2025 08/21/2026 1 1 Encounter Details Date Type Department Care Team (Late st Contact Info) Description 02/28/2025 3:30 PM EDT Office Visit Pav CC Head, Neck & Respiratory [address] [facility], 2nd [place] [address] Eric Tellez MD [address] [place] [address] Adenopathy (Primary Dx) Social History Tobacco Use Types [...] Sign Reading Time Taken Comments Blood Pressure 120/80 02/28/2025 2:45 PM EDT Pulse 82 02/28/2025 2:45 PM EDT Temperature - - Respiratory Rate 14 02/28/2025 2:45 PM EDT Oxygen Saturation 96% 02/28/2025 2:45 PM EDT Inhaled Oxygen Concentration - - Weight 127 kg (279 lb 5.2 oz) 02/28/2025 2:45 PM EDT Height 173.7 cm (5' 8.39 ) 02/28/2025 2:45 PM ED T Body Mass Index 41.99 02/28/2025 2:45 PM EDT documented in this encounter Functional Status [...] Krystal Obando documented as of this encounter Miscellaneous Notes * Progress Notes - Eric Tellez MD - 02/28/2025 3:30 PM EDT HEAD, NECK, RESPIRATORY CLINIC [facility] [place] Referring physician: Km Wooten MD, Con Sumner MD Chief Complaint Mediastinal adenopathy History Of Present Illness Carlos Tripp is a 55 y.o. male with history of lower rectum adenoca, Stage III cT3 cN2a [id number] 02/05/25. CT chest on showed lymph nodes that were in the upper limit of normal. Rad ONC has evaluated the pat and planning on radiation. We have been requested to sample the chest lymph nodes. Past 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 He has a past medical history of Rectal mass. hyperlipidemia Surgical History He has a past surgical history that includes Cholecystectomy. Family History Family History[1] Social History He reports that he has never smoked. He has never used smokeless tobacco. He reports current alcohol use. He reports that he does not use drugs. Review of Systems: Complete 14 point review of systems is negative except for positives documented in HPI Allergies Patient has no known allergies. Home Medications Current Medications[2] Medications Ordered Prior to Encounter[3] Medications Current Scheduled Medications[4] Current Continuous Medications[5] Current PRN Medications[6] Physical Exam GENERAL: not in distress EYES: anicteric sclerae, moist conjunctivae; no lid-lag; PERRLA HENT: Atraumatic; oropharynx clear with moist mucous membranes and no mucosal ulcerations; normal hard and soft palate NECK: Trachea midline; Neck is supple, no thyromegaly or lymphadenopathy . RESP: Airway patent, good air movement, respirations non labored. Breath sounds clear to auscultation. No wheezing. CARD: RRR, without murmur, rubs, or gallop Extremities: No edema, cyanosis or clubbing. Pulses palpable +2. GI: No organomegaly or masses. Abdomen is soft, nontender and nondistended. BS present x 4 quadrants SKIN: Normal temperature, turgor and texture; no rash, ulcers or subcutaneous nodules NEURO: Aaox3 Last Recorded Vitals There were no vitals taken for this visit. Results Radiology I reviewed the images myself to plan a procdedure. CT chest 02/11/2025 Lymph Nodes: Lymph nodes in the mediastinum are more numerous than typically expected. Multiple areupper limits of normal for size in short [...] Right shoulder osteoarthritis. Multilevel degenerative disc disease. IMPRESSION: Lymph nodes in the mediastinum which are at the upper limits of normal and are more numerous than typically expected. These are indeterminate. Consider PET CT versus lymph node sampling. Two and 3 mm right middle lobe nodules which are too small to definitively characterize and are nonspecific. Attention is recommended on follow-up imaging. Assessment and Plan Carlos Tripp is a 55 y.o. male lower rectum adenoca, Stage III cT3 cN2a M0, with some marginally enlarged mediastinal adenopathy. He is going to receive radiation therapy and a chemotherapy pill. Differential: reactive adenopathy, past infection/ granuloma/ possible mets from the rectal ca in descending order. Will schedule for bronch EBUS in endo in the earliest convenience. Explained the procedure of the patient and he is agreeable to have the procedure. He is not on anticoagulation I personally spent a total of approximately 60 minutes on this encounter. This time includes face to face with patient, spent reviewing pertinent medical/family/social history, performing physical exam, clinically evaluating, interpreting labs/imaging, ordering necessary studies (i.e. medication, tests, procedures) and counseling patient, and discussion and/or coordination of care. This does not include time spent with patient by nursing or clerical staff. [1] Family History Problem Relation Name Age of Onset Heart Problem Mother Heart attack Father Cancer Other Maternal Uncle [2] Current Outpatient Medications: atorvastatin (Lipitor) 20 MG [...] taking: Reported on 02/05/2025), Disp: , Rfl: [3] Current Outpatient Medications on File Prior to Visit Medication Sig Dispense Refill atorvastatin (Lipitor) 20 MG tablet Take 1 tablet by mouth daily. (Patient not taking: Reported on 02/05/2025) DOXYCYCLINE MONOHYDRATE PO Take 100 mg by mouth 2 times a day. (Patient not taking: Reported on 02/05/2025) hydrocortisone (Anusol-HC) 25 MG suppository Insert 1 suppository into the rectum 2 times a day. (Patient not taking: Reported on 02/05/2025) No current facility-administered medications on file prior to visit. [4] [5] [6] documented in this encounter Plan of Treatment Upcoming Encounters Date Type Department Care Team (Late st Contact Info) Description 03/29/2025 2:10 PM EDT Appointment [facility] Radiation [address] [address] 04/01/2025 2:10 PM EDT Appointment [facility] Radiation [address] [address] 04/02/2025 2:10 PM EDT Appointment [facility] Radiation [address] [address] 04/03/2025 2:10 PM EDT Appointment [facility] Radiation [address] [address] 04/04/2025 2:10 PM EDT Appointment [facility] Radiation [address] [address] 04/05/2025 2:10 PM EDT Appointment [facility] Radiation [address] [address] 04/08/2025 2:10 PM EDT Appointment [facility] Radiation [address] [address] 04/09/2025 2:10 PM EDT Appointment [facility] Radiation [address] [address] 04/10/2025 2:10 PM EDT Appointment [facility] Radiation [address] [address] 04/11/2025 2:10 PM EDT Appointment [facility] Radiation [address] [address] 04/12/2025 2:10 PM EDT Appointment [facility] Radiation [address] [address] 04/15/2025 2:10 PM EDT Appointment [facility] Radiation [address] [address] 04/16/2025 2:10 PM EDT Appointment [facility] Radiation [address] [address] 04/17/2025 2:10 PM EDT Appointment [facility] Radiation [address] [address] 04/18/2025 2:10 PM EDT Appointment [facility] Radiation [address] [address] 04/19/2025 2:10 PM EDT Appointment [facility] Radiation [address] [address] 04/22/2025 2:10 PM EDT Appointment [facility] Radiation [address] [address] 04/23/2025 2:10 PM EDT Appointment [facility] Radiation [address] [address] 04/24/2025 2:10 PM EDT Appointment [facility] Radiation [address] [address] documented as of this encounter Goals Goal Patient Goal Type Associated Problems Recent Progress Patient-Stated? Author Autogenerat ed Goal Care Plan Autogenerated Problem No Lisa Johnston documented as of this encounter Visit Diagnoses Diagnosis Adenopathy- Primary Enlargement of lymph nodes documented in this encounter Additional Health Concerns Active Problems Noted Date Diagnosed Date Autogenerated Problem 02/28/2025 Assessment Noted Time PHQ-9 Depression Total Score: 0 02/20/20 2:59 PM EDT A fall risk assessment has been complete d for the patient 02/28/2025 2:43 PM EDT A Body Mass Index follow-up plan has been documented for the patient 02/05/2025 12:03 PM EDT documented as of this encounter Care Teams Brownell Operator Relationship Specialty Start Date End Date Tejal Saeed APRN [address] [place] [address] PCP - General 11/07/20 03/11/25 Km Wooten MD [address] [place] [address] [address] [place] [address] Consulting Physician Radiation Oncology 02/14/25 documented as of this encounter
--- OUTSIDE RECORDS SUMMARY | 2025-03-01 08:40 | XMS_ITS | Encounter Summary ---
Author Organization [facility] Address [address] [place] [id number] Care Team Providers Care Cream Tester Name Role Phone Tejal Saeed APRN Primary Care Provider [phone] Km Wooten MD Unavailable [phone] Encounter Details Date Type Department Care Team (Latest Contact Info) Description 03/01/2025 8:40 AM EDT - 03/01/2025 11:59 PM EDT Hospital Encounter [facility] Radiation [id number] [place] [address] Km Wooten MD [address] [place] [address] Discharge Disposition: Still a Patient Social History [...] Appointment [facility] Radiation [address] [address] 04/01/2025 2:10 PM EDT Appointment [facility] Radiation [address] [address] 04/02/2025 2:10 PM EDT Appointment [facility] Radiation [address] [address] 04/03/2025 2:10 PM EDT Appointment [facility] Radiation [address] [address] 04/04/2025 2:10 PM EDT Appointment [facility] Radiation [address] [address] 04/05/2025 2:10 PM EDT Appointment [facility] Radiation [address] [address] 04/08/2025 2:10 PM EDT Appointment [facility] Radiation [address] [address] 04/09/2025 2:10 PM EDT Appointment [facility] Radiation [address] 04/10/2025 2:10 PM EDT Appointment [facility] Radiation [address] 04/11/2025 2:10 PM EDT Appointment [facility] Radiation [address] [phone] 04/12/2025 2:10 PM EDT Appointment [facility] Radiation [address] 04/15/2025 2:10 PM EDT Appointment [facility] CC Radiation [address] 04/16/2025 2:10 PM EDT Appointment [facility] CC Radiation [address] 04/17/2025 2:10 PM EDT Appointment [facility] CC Radiation [address] [place] [address] 04/18/2025 2:10 PM EDT Appointment [facility] CC Radiation [address] [address] 04/19/2025 2:10 PM EDT Appointment [facility] CC Radiation [address] [place] [phone] 04/22/2025 2:10 PM EDT Appointment [facility] Radiation [address] 04/23/2025 2:10 PM EDT Appointment [facility] CC Radiation [address] [phone] 04/24/2025 2:10 PM EDT Appointment [facility] Radiation [address] [address] documented as of this encounter Goals Goal Patient Goal Type Associated Problems Recent Progress Patient-Stated? Author Autogenerat ed Goal Care Plan Autogenerated Problem No Lisa Johnston documented as of this encounter Visit Diagnoses Not on filedocumented in this encounter Additional Health Concerns Active [...] documented as of this encounter Care Teams Cream Tester Relationship Specialty Start Date End Date Tejal Saeed APRN [address] [place] [address] PCP - General 11/07/20 03/11/25 Km Wooten MD 800 [facility] [address] [place] [address] Consulting Physician Radiation Oncology 02/14/25 documented as of this encounter
--- OUTSIDE RECORDS SUMMARY | 2025-03-04 08:42 | XMS_ITS | Encounter Summary ---
Author Organization Healthcare Address [address] [id number] Care Team Providers Care Hand Stitcher Name Role Phone eTjal Saeed APRN Primary Care Provider +1 -[phone] Km Wooten MD Unavailable [phone] Encounter Details Date Type Department Care Team (Latest Contact Info) Description 03/04/2025 8:42 AM EDT - 03/04/2025 11:59 PM EDT Hospital Encounter [facility] [address] BE473I [address] Discharge Disposition: Still a Patient Social History [...] EDT Appointment [facility] [address] [address] 04/01/2025 2:10 PM EDT Appointment [facility] [address] [address] 04/02/2025 2:10 PM EDT Appointment [facility] [address] [address] 04/03/2025 2:10 PM EDT Appointment [facility] [address] [address] 04/04/2025 2:10 PM EDT Appointment [facility] [address] [address] 04/05/2025 2:10 PM EDT Appointment [facility] [address] [address] 04/08/2025 2:10 PM EDT Appointment [facility] [address] [address] 04/09/2025 2:10 PM EDT Appointment [facility] Rad[facility] [address] [address] 04/10/2025 2:10 PM EDT Appointment [facility] [address] [place] [address] 04/11/2025 2:10 PM EDT Appointment [facility] Radiation [address] 04/12/2025 2:10 PM EDT Appointment [facility] Radiation [address] [address] 04/15/2025 2:10 PM EDT Appointment [facility] Radiation [address] 04/16/2025 2:10 PM EDT Appointment [facility] Radiation [address] 04/17/2025 2:10 PM EDT Appointment [facility] Radiation [address] [place] [address] 04/18/2025 2:10 PM EDT Appointment [facility] Radiation [address] 04/19/2025 2:10 PM EDT Appointment [facility] Radiation [address] [place] [address] 04/22/2025 2:10 PM EDT Appointment [facility] Radiation [address] [place] [address] 04/23/2025 2:10 PM EDT Appointment [facility] Radiation [address] [address] 04/24/2025 2:10 PM EDT Appointment [facility] Radiation [address] [address] documented as of this encounter Goals Goal [...] documented as of this encounter Care Teams Hand Stitcher Relationship Specialty Start Date End Date Tejal Saeed APRN [address] [place] [address] PCP - General 11/07/20 03/11/25 Km Wooten MD 800 [facility] C114D [address] Consulting Physician Radiation Oncology 02/14/25 documented as of this encounter
--- OUTSIDE RECORDS SUMMARY | 2025-03-11 17:00 | XMS_ITS | Encounter Summary ---
Author Organization [facility] Address [address] [id number] Care Team Providers Care Procurement Professional Name Role Phone Tejal Saeed APRN Primary Care Provider [phone] Km Wooten MD Unavailable [phone] Encounter Details Date Type Department Care Team (Latest Contact Info) Description 03/11/2025 5:00 PM EDT - 03/11/2025 11:59 PM EDT Hospital Encounter [facility] [id number] [place] [address] Discharge Disposition: Still a Patient Social History [...] Appointment [facility] [address] [address] 04/01/2025 2:10 PM EDT Appointment [facility] [address] [address] 04/02/2025 2:10 PM EDT Appointment [facility] [address] [address] 04/03/2025 2:10 PM EDT Appointment [facility] [address] [address] 04/04/2025 2:10 PM EDT Appointment [facility] [address] [address] 04/05/2025 2:10 PM EDT Appointment [facility] [address] [address] 04/08/2025 2:10 PM EDT Appointment [facility] [address] [address] 04/09/2025 2:10 PM EDT Appointment [facility] [address] [address] 04/10/2025 2:10 PM EDT Appointment [facility] [address] [place] [phone] 04/11/2025 2:10 PM EDT Appointment [facility] [address] 04/12/2025 2:10 PM EDT Appointment [facility] [address] [phone] 04/15/2025 2:10 PM EDT Appointment [facility] [address] 04/16/2025 2:10 PM EDT Appointment [facility] [address] 04/17/2025 2:10 PM EDT Appointment [facility] [address] [phone] 04/18/2025 2:10 PM EDT Appointment [facility] [address] 04/19/2025 2:10 PM EDT Appointment [facility] [address] [phone] 04/22/2025 2:10 PM EDT Appointment [facility] [address] [phone] 04/23/2025 2:10 PM EDT Appointment [facility] [address] [place] [phone] 04/24/2025 2:10 PM EDT Appointment [facility] [address] [address] documented as of this encounter Goals Goal [...] documented as of this encounter Care Teams Procurement Professional Relationship Specialty Start Date End Date Tejal Saeed APRN [address] [place] [address] PCP - General 11/07/20 03/11/25 Km Wooten MD [address] [facility] [address] [place] [address] Consulting Physician Radiation Oncology 02/14/25 documented as of this encounter
--- OUTSIDE RECORDS SUMMARY | 2025-03-12 09:12 | XMS_ITS | Encounter Summary ---
Author Organization [facility] Address [address] [place] [address] Care Team Providers Care Tribal Delegate Name Role Phone Km Wooten MD Unavailable [phone] Comfort Siddiqi APRN Primary Care Provider [phone] Reason for Referral * Imaging (Routine) - Closed Specialty Diagnoses / Procedures Referred By Alice maria Referred To Contact Gastroenterology Diagnoses Lung nodule Procedures Bronchoscopy w Eric Salas MD [address] [place] [address] Phone: tel: fax: Referral ID Status Reason Start Date Expiration Date V isits Requested Visits Authorized [id number] Closed Specialty Services Required 02/28/2025 08/30/2026 1 1 Reason for Visit * Imaging (Routine) - Closed Specialty Diagnoses / Procedures Referred By Alice maria Referred To Contact Gastroenterology Diagnoses Lung nodule Procedures Bronchoscopy w Eric Salas MD [facility] [place] [address] Phone: tel: fax: Referral ID Status Reason Start Date Expiration Date V isits Requested Visits Authorized [id number] Closed Specialty Services Required 02/28/2025 08/30/2026 1 1 Encounter Details Date Type Department Care Team (Latest Contact Info) Description 03/12/2025 9:12 AM EDT - 03/12/2025 11:59 PM EDT Hospital Encounter [facility] [address] [place] [address] Eric Tellez MD [address] [place] [phone] Lung nodule Discharge Disposition: Home or Self [...] lower rectum adenoca, Stage III cT3 cN2a [id number] 02/05/25. CT chest on showed lymph nodes [...] from the original note were not included. [address] Anesthesia: General Anesthesia You?re due to have [...] medicines you take. This includes prescription and rxjx-wky-iqvqkqh medicines. It also includes vitamins, herbs, and [...] Last Reviewed Date: 2023 00:00:00 ?? [employer]. All rights reserved. This information is not [...] temp is over 100?F, you may take yjzu-mww-zdvoqhl Tylenol. ? Blood in the mouth: For a few days, you may cough up a little blood or have a little blood in your spit. This is normal. Call [phone] right away if you have any of [...] Pulmonary, call . Nights and weekends, call [phone] and ask for the plum packer x ray consultant. ? For the Transplant Service, call . Nights and weekends, call . ? For Pediatric Pulmonary, call and ask for the pediatric attending x ray consultant. ? For Otolaryngology, call . Nights and weekends, call [phone] and ask for thesurgical resident x ray consultant. documented in this encounter Plan of Treatment Upcoming Encounters Date Type Department Care Team (Late st Contact Info) Description 03/29/2025 2:10 PM EDT Appointment [facility] [address] [phone] 04/01/2025 2:10 PM EDT Appointment [facility] [address] [phone] 04/02/2025 2:10 PM EDT Appointment [facility] [address] [phone] 04/03/2025 2:10 PM EDT Appointment [facility] [address] [phone] 04/04/2025 2:10 PM EDT Appointment [facility] [address] [phone] 04/05/2025 2:10 PM EDT Appointment [facility] [address] [phone] 04/08/2025 2:10 PM EDT Appointment [facility] [address] [address] 04/09/2025 2:10 PM EDT Appointment [facility] [address] [phone] 04/10/2025 2:10 PM EDT Appointment [facility] [address] [phone] 04/11/2025 2:10 PM EDT Appointment [facility] [address] [phone] 04/12/2025 2:10 PM EDT Appointment [facility] [address] [phone] 04/15/2025 2:10 PM EDT Appointment [facility] [address] [phone] 04/16/2025 2:10 PM EDT Appointment [facility] [address] [place] [address] 04/17/2025 2:10 PM EDT Appointment [facility] [address] [place] [phone] 04/18/2025 2:10 PM EDT Appointment [facility] [address] [place] [phone] 04/19/2025 2:10 PM EDT Appointment [facility] [address] [place] [phone] 04/22/2025 2:10 PM EDT Appointment [facility] [address] [place] [phone] 04/23/2025 2:10 PM EDT Appointment [facility] [address] [place] [phone] 04/24/2025 2:10 PM EDT Appointment [facility] [address] [place] [address] Pending Results Name Type Priority Associated Diagnoses Date /Time AFB Culture, Non Respiratory Source and Acid Fast Stain Microbiology Routine 03/12/2025 12:37 PM EDT Fungal Culture, Tissue and PARMINDER Microbiology Routine 03/12/2025 12:37 PM EDT documented as of this encounter Goals Goal Patient Goal Type Associated Problems Recent Progress Patient-Stated? Author Autogenerat ed Goal Care Plan Autogenerated Problem No Lisa Johnston L documented as of this encounter Procedures Procedure [...] nodule documented in this encounter Results * (ABNORMAL) Anaerobic Culture (03/12/2025 12:37 PM EDT) Culture No anaerobes isolated 03/16/2025 4:33 PM EDT [facility] Culture Streptococcus mitis/oralis group(A) 03/16/2025 4:33 PM EDT [facility] Comment: This isolate has been identified using the FDA Approved Numble[employer]er [place] System The organism value for this [...] OR DERABLES Final Result Performing Organization Address [facility] Co de Phone Number [facility] [address] [place] [address] * Tissue Culture and Gram Stain (03/12/2025 12:37 PM EDT) Culture No growth at day 4 2024 2:01 PM EDT [facility] Gram Stain Result No organisms seen 03/16/2025 2:01 PM EDT [facility] Gram Stain Result No polymorphonuclear leukocytes seen 03/16/2025 2:01 PM EDT [facility] Fine Needle Aspirate Structure of lymph node / Unknown Non-blood Collection / Unknown 03/12/2025 12:37 PM EDT 03/12/2025 12:46 PM EDT Eric Tellez MD LAB MICROBIOLOGY - GENERAL OR DERABLES Final Result Performing Organization Address [facility] Co de Phone Number [facility] [address] [place] [address] * Bronchoscopy w EBUS (03/12/2025 11:25 AM [...] Nodes observed under convex ultrasound guidance. Onsite armament mechanic was present and cytology results were preliminarily [...] 03/12/2025 11:10 AM Staff Staff Role Nel Mccoy RN Endo Nurse Carmen Zelaya Endo Biomedical Scientist Palma Marin CRNA SOLAR SYSTEM INSTALLER Eric Tellez MD Proceduralist Shaun Hanley MD Anesthesiologist Impression Overall Impression: Normal endobronchial exam The three lymph nodes sampled today on [address] were benign Post Procedure Diagnosis None Recommendation Follow-up: with referring provider Attestation I was present for the entire procedure Billing Codes See procedure report details above. 65677 - EBUS convex prove 1 or 2 lesions GC - Service has been performed in part by a resident/fellow under the direction of a teaching physician us Eric Tellez MD GI PROCEDURE ORDERABLES Final Result * Fine needle aspiration (03/12/2025 10:43 AM EDT) Case Report Cytology Case: [id number] Authorizing Provider: Eric Tellez MD Collected: 03/12/2025 1043 Ordering Location: [facility] Received: 03/12/2025 1129 Pathologist: Nicole Mccoy [...] GUIDED FINE NEEDLE ASPIRATION 12:59 PM EDT [facility] Final Diagnosis A. LYMPH NODE, STATION 7, ENDOBRONCHIAL ULTRASOUND-GUIDED FINE NEEDLE ASPIRATION: NO EVIDENCE OF MALIGNANCY, HEMODILUTE LYMPHOID TISSUE. B. LYMPH NODE, 4 RIGHT, ENDOBRONCHIAL ULTRASOUND-GUIDED FINE NEEDLE ASPIRATION: NO EVIDENCE OF MALIGNANCY, HEMODILUTE LYMPHOID TISSUE. C. LYMPH NODE, 11 RIGHT, ENDOBRONCHIAL ULTRASOUND-GUIDED FINE NEEDLE ASPIRATION: NO EVIDENCE OF MALIGNANCY, HEMODILUTE LYMPHOID TISSUE. 5 12:59 PM EDT [facility] at 1259 EDT Comment The possibility of rare poorly-formed granulomas is not excluded, especially in the station 7 lymph node sample. For this reason, GMS and AFB stains are performed. These are negative for organisms. 5 12:59 PM EDT [facility] Special and Immunohistochemical Stains Special Stain: A1-2 Acid Fast Bacteria A1-3 GMS IHC: There are no tasks to display for the given criteria. All controls show appropriate reactivity. All immunohistochemis try, in situ hybridization, and histochemical tests were developed by and are performed at the [facility], [address] [place] [address]. All tests reported here, except those addressing [...] on decalcified specimens. 5 12:59 PM EDT [facility] Immediate Evaluation A. FNA performed by: [...] physician listed above. 5 12:59 PM EDT [facility] Gross Description A. LYMPH NODE, STATION [...] 4 pap slides. Cold Time: 1h 31m 12:59 PM EDT [facility] Note: A resident was involved in the service. I attest I examined the relevant preparations for the specimens and confirmed the diagnosis or interpretation. 12:59 PM EDT [facility] Clinical Information R91.1 - Lung nodule [ICD-10-CM] 12:59 PM EDT [facility] Fine Needle Aspirate Structure of lymph [...] Tellez MD LAB CYTOLOGY ORDERABLES Final Result [facility] [address] [place] [address] documented in this encounter Visit Diagnoses Diagnosis [...] documented as of this encounter Care Teams Tribal Delegate Relationship Specialty Start Date End Date Comfort Siddiqi APRN [address] [place] [address] PCP - General 03/12/25 Km Wooten MD [address] [place] [phone] Consulting Physician Radiation Oncology 02/14/25 documented as of this encounter
--- OUTSIDE RECORDS SUMMARY | 2025-03-12 10:12 | XMS_ITS | Encounter Summary ---
Author Organization [facility] Address [address] [place] [address] Care Team Providers Care Vascular Manager Name Role Phone Km Wooten MD Unavailable [phone] Comfort Siddiqi APRN Primary Care Provider [phone] Encounter Details Date Type Department Care Team (Late st Contact Info) Description 03/12/2025 10:12 AM EDT Anesthesia Event [facility] Endoscopy [address] [place] [address] Shaun Hanley MD [address] [place] [address] Anesthesia Record Procedure Summary Procedure Name Responsible [...] and Staff Patient location during procedure: OR MIXING TANK OPERATOR: Palma Marin CRNA Performed: MIXING TANK OPERATOR Patient Condition Indications for airway management: [...] 10:06 AM EDT Anesthesiologist: Shaun Hanley MD MIXING TANK OPERATOR: Palma Marin CRNA Patient: Carlos Tripp [...] ABG No results found for: PHART , LNP6XVZ , PO2ART , SO2ART , BEART , VVU4TWU , HCTART , SODIUMART , POTASSIUMART , POCTCL , POCGLU , IONCALART , LACTATE No results found for: PH , PCO2 , PO2 , Z5DOXJKJ , BASEEXC , HCTSYR , KSYR , CLSYR , GLUSYR , CAION , LACTATE ECHO No echocardiogram results found for the past 12 months PFTs No results found for: SLJ1JST , FDO6EWGH , ZZQ7MWU , FVCPRED BP Readings from Last 5 [...] Cardiovascular: Does not have CAD or past [place]. Does not have chest pain. Respiratory: no [...] Appointment [facility] Radiation [address] [phone] 04/01/2025 2:10 PM EDT Appointment [facility] Radiation [address] [address] 04/02/2025 2:10 PM EDT Appointment [facility] Radiation [address] [address] 04/03/2025 2:10 PM EDT Appointment [facility] Radiation [address] [address] 04/04/2025 2:10 PM EDT Appointment [facility] Radiation [address] [address] 04/05/2025 2:10 PM EDT Appointment [facility] Radiation [address] [phone] 04/08/2025 2:10 PM EDT Appointment [facility] CC Radiation [address] [phone] 04/09/2025 2:10 PM EDT Appointment [facility] CC Radiation [address] [phone] 04/10/2025 2:10 PM EDT Appointment [facility] CC Radiation [address] [phone] 04/11/2025 2:10 PM EDT Appointment [facility] Radiation [address] [phone] 04/12/2025 2:10 PM EDT Appointment [facility] CC Radiation [address] [phone] 04/15/2025 2:10 PM EDT Appointment [facility] CC Radiation [address] [phone] 04/16/2025 2:10 PM EDT Appointment [facility] Radiation [address] [phone] 04/17/2025 2:10 PM EDT Appointment [facility] CC Radiation [address] [phone] 04/18/2025 2:10 PM EDT Appointment [facility] CC Radiation [address] [phone] 04/19/2025 2:10 PM EDT Appointment [facility] CC Radiation [address] [phone] 04/22/2025 2:10 PM EDT Appointment [facility] CC Radiation [address] [phone] 04/23/2025 2:10 PM EDT Appointment [facility] CC Radiation [address] [phone] 04/24/2025 2:10 PM EDT Appointment [facility] CC Radiation [address] [phone] documented as of this encounter Goals Goal Patient Goal Type Associated Problems Recent Progress Patient-Stated? Author Autogenerat ed Goal Care Plan Autogenerated Problem No Lisa Johnston documented as of this encounter Procedures Procedure Name Priority Date/Time Associated Diagnosis Comments PB ANESTHESIA PLACEHOLDER Routine 03/12/2025 10:22 AM EDT [place] AN ELECTIVE ENDOTRACHEAL AIRWAY Routine 03/12/2025 10:22 AM EDT documented in this encounter Results * [place] AN ELECTIVE ENDOTRACHEAL AIRWAY, PB ANESTHESIA PLACEHOLDER (03/12/2025 10:22 AM EDT) Narrative Palma Marin CRNA - 03/12/2025 10:22 AM EDT Palma Marin CRNA 03/12/2025 10:32 AM Airway Date/Time: 03/12/2025 10:22 AM Reason: elective Airway not difficult General Information and Staff Patient location during procedure: OR MIXING TANK OPERATOR: Palma Marin CRNA Performed: MIXING TANK OPERATOR Patient Condition Indications for airway management: [...] MG/ML injection Intravenous, As needed, Starting on Tu03/12/25 at 1112, Until Tue03/12/25 at 1139, Routine, [...] documented as of this encounter Care Teams Vascular Manager Relationship Specialty Start Date End Date Comfort Siddiqi APRN [address] [place] [address] PCP - General 03/12/25 Km Wooten MD [address] [place], [place] [address] [address] Consulting Physician Radiation Oncology 02/14/25 documented as of this encounter
--- OUTSIDE RECORDS SUMMARY | 2025-03-15 09:00 | XMS_ITS | Encounter Summary ---
Author Organization [facility] Address [address] [place] [address] Care Team Providers Care Steam Brush Operator Name Role Phone Km Wooten MD Unavailable [phone] Comfort Siddiqi APRN Primary Care Provider [phone] Reason for Visit * Reason Comments Adenopathy Encounter Details Date Type Department Care Team ([facility] Contact Info) Description 03/15/2025 9:00 AM EDT Office Visit Pav CC Head, Neck & Respiratory [address] [place] [address] Deepak Haider MD [address] [place] [address] Malignant neoplasm of rectum (CMS/HCC) [...] Sign Reading Time Taken Comments Blood Pressure - - Pulse - - Temperature - - Respiratory Rate - - Oxygen Saturation - - Inhaled Oxygen Concentration - - Weight 126 kg (277 lb) 03/15/2025 9:16 AM EDT pe r patient Height - - Body Mass Index 44.71 03/12/2025 9:47 AM EDT documented in this encounter Miscellaneous Notes * Progress Notes - Deepak Haider MD - 03/15/2025 9:00 AM EDT Images from the original note were not included. Telehealth Statement Patient Verification Patient identity has been confirmed using name and date of ? Yes Authorizations and Agreements/Telemedicine Consent sent and consent confirmed? Yes Patient Location: Home/Other Patient confirms they are physically located in [place]? Yes If the patient is not physically located in [place], the provider has confirmed with [facility] thatthe provider is authorized to provide services in patient's stated location? N/A Provider Location: [facility] facility Audio and video or audio only? Audio and video Total visit time: 10 minutes INTERVENTIONAL PULMONARY FOLLOW-UP OUTPATIENT NOTE: Patient ID/Chief Complaint: .Carlos Tripp is a 55 y.o. male presenting for follow up for mediastinal adenopathy. History of Present Illness: Carlos Tripp is a 55 y.o. male with history of lower rectum adenoca, Stage III cT3 cN2a [id number] 02/05/25. CT chest on showed lymph nodes that were in the upper limit of normal. Rad ONC has evaluated the pat and planning on radiation. Patient had an ebus on 03/12/2025 Interval History: Patient had no issues. No new complaints. PFSH: Reviewed in EMR, Significant Changes Noted Above Review of Systems: 14 point review of systems negative except for HPI Medications: Current Medications[1] Immunizations: Chart reviewed: immunizations are up to date and documented. Immunization History Administered Date(s) Administered Moderna COVID-19 Vaccine (Poultry Husbandman) 12+ years 10/11/2020, 11/08/2020, 06/24/2021 Physical Examination: Vital Signs: Weight 126 kg (277 lb). Review of Data: Fine needle aspiration: [id number] Order: [id number] Collected 03/12/2025 10:43 Status: Final result Dx: Lung nodule Test Result Released: No (scheduled for 03/17/2025 12:59 PM) 0 Result Notes Component Final Diagnosis A. LYMPH NODE, STATION 7, ENDOBRONCHIAL ULTRASOUND-GUIDED FINE NEEDLE ASPIRATION: NO EVIDENCE OF MALIGNANCY, HEMODILUTE LYMPHOID TISSUE. B. LYMPH NODE, 4 RIGHT, ENDOBRONCHIAL ULTRASOUND-GUIDED FINE NEEDLE ASPIRATION: NO EVIDENCE OF MALIGNANCY, HEMODILUTE LYMPHOID TISSUE. C. LYMPH NODE, 11 RIGHT, ENDOBRONCHIAL ULTRASOUND-GUIDED FINE NEEDLE ASPIRATION: NO EVIDENCE OF MALIGNANCY, HEMODILUTE LYMPHOID TISSUE. at 1259 EDT Comment The possibility of rare poorly-formed granulomas is not excluded, especially in the station 7 lymphnode sample. For this reason, GMS and AFB stains are performed. These are negative for organisms. Special and Immunohistochemical Stains Special Stain: A1-2 Acid Fast Bacteria A1-3 GMS IHC: There are no tasks to display for the given criteria. All controls show appropriate reactivity. All immunohistochemistry, in situ hybridization, and histochemical tests were developed by and are performed at the [facility], [address] [place] [address]. All tests reported here, except those addressing [...] likelihood of false negativity on decalcified specimens. Impression: 1. Malignant neoplasm of rectum (CMS/HCC) Recommendations: Carlos Tripp is a 55 y.o. male lower rectum adenoca, Stage III cT3 cN2a M0, with some marginally enlarged mediastinal adenopathy. -Results of the ebus showed no evidence of malignancy. Discussed the results with the patient. Was present to answer any additional questions the patient had. He did not. [1] Current Outpatient Medications Medication Sig Dispense Refill atorvastatin (Lipitor) 20 MG tablet Take 1 tablet by mouth daily. cetirizine (ZyrTEC) 10 MG tablet Take 1 tablet by mouth daily. (Patient not taking: Reported on 03/12/2025) DOXYCYCLINE MONOHYDRATE PO Take 100 mg by mouth 2 times a day. (Patient not taking: No sig reported) fluticasone (Flonase) 50 MCG/ACT nasal spray use 1 spray(s) in each nostril once daily (Patient nottaking: Reported on 03/12/2025) hydrocortisone (Anusol-HC) 25 MG suppository Insert 1 suppository into the rectum 2 times a day. (Patient not taking: No sig reported) No current facility-administered medications for this visit. documented in this encounter Plan of Treatment Upcoming Encounters Date Type Department Care Team (Late st Contact Info) Description 03/29/2025 2:10 PM EDT Appointment P[facility] CC Radiation [address] [address] 04/01/2025 2:10 PM EDT Appointment P[facility] CC Radiation [address] [address] 04/02/2025 2:10 PM EDT Appointment P[facility] CC Radiation [address] [address] 04/03/2025 2:10 PM EDT Appointment P[facility] CC Radiation [address] [address] 04/04/2025 2:10 PM EDT Appointment P[facility] CC Radiation [address] [address] 04/05/2025 2:10 PM EDT Appointment P[facility] CC Radiation [address] [address] 04/08/2025 2:10 PM EDT Appointment P[facility] CC Radiation [address] [phone] 04/09/2025 2:10 PM EDT Appointment P[facility] CC Radiation [address] [phone] 04/10/2025 2:10 PM EDT Appointment P[facility] CC Radiation [address] [place] [address] 04/11/2025 2:10 PM EDT Appointment P[facility] CC Radiation [address] 04/12/2025 2:10 PM EDT Appointment PAV CC Radiation [address] [phone] 04/15/2025 2:10 PM EDT Appointment PAV CC Radiation [address] [address] 04/16/2025 2:10 PM EDT Appointment PAV CC Radiation [address] [phone] 04/17/2025 2:10 PM EDT Appointment P[facility] CC Radiation [address] [phone] 04/18/2025 2:10 PM EDT Appointment PAV CC Radiation [address] [address] 04/19/2025 2:10 PM EDT Appointment P[facility] CC Radiation [address] [phone] 04/22/2025 2:10 PM EDT Appointment P[facility] CC Radiation [address] [phone] 04/23/2025 2:10 PM EDT Appointment P[facility] CC Radiation [address] [phone] 04/24/2025 2:10 PM EDT Appointment P[facility] CC Radiation [address] [phone] documented as of this encounter Goals Goal Patient Goal Type Associated Problems Recent Progress Patient-Stated? Author Autogenerat ed Goal Care Plan Autogenerated Problem Lisa Bashir documented as of this encounter Visit Diagnoses [...] plan has been documented for the patient 03/15/2025 11:31 AM EDT documented as of this encounter Care Teams Steam Brush Operator Relationship Specialty Start Date End Date Comfort Siddiqi APRN [address] [place] [address] PCP - General 03/12/25 Km Wooten MD [address] [facility] [address] [place] [address] Consulting Physician Radiation Oncology 02/14/25 documented as of this encounter
--- OUTSIDE RECORDS SUMMARY | 2025-03-18 08:34 | XMS_ITS | Encounter Summary ---
Author Organization [facility] Address [address] [id number] Care Team Providers Care Bilingual Sales Consultant Name Role Phone Km Wooten MD Unavailable Comfort Siddiqi APRN Primary Care Provider [phone] Encounter Details Date Type Department Care Team (Latest Contact Info) Description 03/18/2025 8:34 AM EDT - 03/18/2025 11:59 PM EDT Hospital Encounter PAV CC Radiation [address] [id number] [place] [address] Discharge Disposition: Still a Patient Social History [...] EDT Appointment PAV CC Radiation [address] [address] 04/01/2025 2:10 PM EDT Appointment PAV CC Radiation [address] [address] 04/02/2025 2:10 PM EDT Appointment PAV CC Radiation [address] [address] 04/03/2025 2:10 PM EDT Appointment PAV CC Radiation [address] [address] 04/04/2025 2:10 PM EDT Appointment PAV CC Radiation [address] [address] 04/05/2025 2:10 PM EDT Appointment PAV CC Radiation [address] [address] 04/08/2025 2:10 PM EDT Appointment PAV CC Radiation [address] [address] 04/09/2025 2:10 PM EDT Appointment PAV CC Radiation [address] [address] 04/10/2025 2:10 PM EDT Appointment PAV CC Radiation [address] [address] 04/11/2025 2:10 PM EDT Appointment PAV CC Radiation [address] 04/12/2025 2:10 PM EDT Appointment PAV CC Radiation [address] [address] 04/15/2025 2:10 PM EDT Appointment PAV CC Radiation [address] [place] [phone] 04/16/2025 2:10 PM EDT Appointment PAV CC Radiation [address] 04/17/2025 2:10 PM EDT Appointment PAV CC Radiation [address] [place] [phone] 04/18/2025 2:10 PM EDT Appointment PAV CC Radiation [address] [place] [phone] 04/19/2025 2:10 PM EDT Appointment PAV CC Radiation [address] [place] [phone] 04/22/2025 2:10 PM EDT Appointment PAV CC Radiation [address] [address] 04/23/2025 2:10 PM EDT Appointment PAV CC Radiation [address] [address] 04/24/2025 2:10 PM EDT Appointment PAV CC Radiation [address] [place] [phone] documented as of this encounter Goals Goal [...] documented as of this encounter Care Teams Bilingual Sales Consultant Relationship Specialty Start Date End Date Comfort Siddiqi APRN [address] [place] [address] PCP - General 03/12/25 Km Wooten MD [address] [place] [address] Consulting Physician Radiation Oncology 02/14/25 documented as of this encounter
--- OUTSIDE RECORDS SUMMARY | 2025-03-21 13:48 | XMS_ITS | Encounter Summary ---
Author Organization [facility] Address [address] [place] [address] Care Team Providers Care Funeral Home Manager Name Role Phone Km Wooten MD Unavailable [phone] Comfort Siddiqi APRN Primary Care Provider [phone] Encounter Details Date Type Department Care Team (Latest Contact Info) Description 03/21/2025 1:48 PM EDT - 03/21/2025 2:11 PM EDT Hospital Encounter [facility] [address] [id number] [place] [address] Km Wooten MD [address] Buzz C114D [place] [address] Discharge Disposition: Still a Patient Social History [...] Appointment [facility] [address] [address] 04/01/2025 2:10 PM EDT Appointment [facility] [address] [address] 04/02/2025 2:10 PM EDT Appointment [facility] [address] [address] 04/03/2025 2:10 PM EDT Appointment [facility] [address] [address] 04/04/2025 2:10 PM EDT Appointment [facility] [address] [address] 04/05/2025 2:10 PM EDT Appointment [facility] [address] [address] 04/08/2025 2:10 PM EDT Appointment [facility] [address] [address] 04/09/2025 2:10 PM EDT Appointment [facility] [address] [place] [phone] 04/10/2025 2:10 PM EDT Appointment [facility] [address] 04/11/2025 2:10 PM EDT Appointment [facility] [address] [address] 04/12/2025 2:10 PM EDT Appointment [facility] [address] 04/15/2025 2:10 PM EDT Appointment [facility] [address] 04/16/2025 2:10 PM EDT Appointment [facility] [address] [place] [phone] 04/17/2025 2:10 PM EDT Appointment [facility] [address] 04/18/2025 2:10 PM EDT Appointment [facility] [address] [address] 04/19/2025 2:10 PM EDT Appointment [facility] [address] 04/22/2025 2:10 PM EDT Appointment [facility] [address] 04/23/2025 2:10 PM EDT Appointment [facility] [address] [phone] 04/24/2025 2:10 PM EDT Appointment [facility] [address] [address] documented as of this encounter [...] documented as of this encounter Care Teams Funeral Home Manager Relationship Specialty Start Date End Date Comfort Siddiqi APRN [address] [place] [address] PCP - General 03/12/25 Km Wooten MD [address] [place], [place] 134[address]D [place] [address] Consulting Physician Radiation Oncology 02/14/25 documented as of this encounter
--- OUTSIDE RECORDS SUMMARY | 2025-03-21 14:12 | XMS_ITS | Encounter Summary ---
Author Organization [facility] Address [address] [place] [id number] Care Team Providers Care Telecasting Engineer Name Role Phone Km Wooten MD Unavailable [phone] Comfort Siddiqi APRN Primary Care Provider [phone] Reason for Visit * Reason Comments OTV Encounter Details Date Type Department Care Team (Latest Contact Info) Description 03/21/2025 2:12 PM EDT - 03/21/2025 11:59 PM EDT Hospital Encounter [facility] [address] NY097G [place] [address] Km Wooten MD [address] Buzz C114D [place] [address] Malignant neoplasm of rectum (CMS/HCC) (Primary Dx) [...] PM EDT Appointment [facility] [address] [id number] [place] [address] 04/01/2025 2:10 PM EDT Appointment [facility] [address] FL297P [place] [address] 04/02/2025 2:10 PM EDT Appointment [facility] Radiation [address] [address] 04/03/2025 2:10 PM EDT Appointment [facility] Radiation [address] [address] 04/04/2025 2:10 PM EDT Appointment [facility] Radiation [address] [address] 04/05/2025 2:10 PM EDT Appointment [facility] Radiation [address] [address] 04/08/2025 2:10 PM EDT Appointment [facility] Radiation [address] [address] 04/09/2025 2:10 PM EDT Appointment [facility] Radiation [address] [address] 04/10/2025 2:10 PM EDT Appointment [facility] Radiation [address] [address] 04/11/2025 2:10 PM EDT Appointment [facility] Radiation [address] [address] 04/12/2025 2:10 PM EDT Appointment [facility] Radiation [address] [address] 04/15/2025 2:10 PM EDT Appointment [facility] Radiation [address] [address] 04/16/2025 2:10 PM EDT Appointment [facility] Radiation [address] [address] 04/17/2025 2:10 PM EDT Appointment [facility] Radiation [address] [address] 04/18/2025 2:10 PM EDT Appointment [facility] Radiation [address] [address] 04/19/2025 2:10 PM EDT Appointment [facility] [address] TV151Z [place] [address] 04/22/2025 2:10 PM EDT Appointment [facility] [address] NH359L [place] [address] 04/23/2025 2:10 PM EDT Appointment [facility] [address] ED800N [place] [address] 04/24/2025 2:10 PM EDT Appointment [facility] [address] FR854C [place] [address] documented as of this encounter Goals Goal [...] documented as of this encounter Care Teams Telecasting Engineer Relationship Specialty Start Date End Date Comfort Siddiqi APRN [address] [place] [address] PCP - General 03/12/25 Km Wooten MD [address] [facility] C114D [place] [address] Consulting Physician Radiation Oncology 02/14/25 documented as of this encounter
--- OUTSIDE RECORDS SUMMARY | 2025-03-22 13:49 | XMS_ITS | Encounter Summary ---
Author Organization [facility] Address [address] [place] [id number] Care Team Providers Care Well Drill Operator Helper Cable Tool Name Role Phone Km Wooten MD Unavailable [phone] Comfort Siddiqi APRN Primary Care Provider [phone] Encounter Details Date Type Department Care Team (Late st Contact Info) Description 03/22/2025 1:49 PM EDT Hospital Encounter [facility] [address] [id number] [place] [address] Social History Tobacco Use Types Packs/Day Years [...] Appointment [facility] Radiation [address] [address] 04/01/2025 2:10 PM EDT Appointment [facility] Radiation [address] [address] 04/02/2025 2:10 PM EDT Appointment [facility] Radiation [address] [address] 04/03/2025 2:10 PM EDT Appointment [facility] Radiation [address] [address] 04/04/2025 2:10 PM EDT Appointment [facility] Radiation [address] [address] 04/05/2025 2:10 PM EDT Appointment [facility] Radiation [address] [address] 04/08/2025 2:10 PM EDT Appointment [facility] Radiation [address] [address] 04/09/2025 2:10 PM EDT Appointment [facility] Radiation [address] [address] 04/10/2025 2:10 PM EDT Appointment [facility] Radiation [address] [address] 04/11/2025 2:10 PM EDT Appointment [facility] Radiation [address] [address] 04/12/2025 2:10 PM EDT Appointment [facility] Radiation [address] [address] 04/15/2025 2:10 PM EDT Appointment [facility] Radiation [address] [address] 04/16/2025 2:10 PM EDT Appointment [facility] Radiation [address] [address] 04/17/2025 2:10 PM EDT Appointment [facility] Radiation [address] [address] 04/18/2025 2:10 PM EDT Appointment [facility] Radiation [address] [address] 04/19/2025 2:10 PM EDT Appointment [facility] Radiation [address] [address] 04/22/2025 2:10 PM EDT Appointment [facility] Radiation [address] [address] 04/23/2025 2:10 PM EDT Appointment [facility] Radiation [address] [address] 04/24/2025 2:10 PM EDT Appointment [facility] Radiation [address] [address] documented as of this encounter [...] documented as of this encounter Care Teams Well Drill Operator Helper Cable Tool Relationship Specialty Start Date End Date Comfort Siddiqi APRN [address] [place] [address] PCP - General 03/12/25 Km Wooten MD 800 [facility] C114D [place] [address] Consulting Physician Radiation Oncology 02/14/25 documented as of this encounter
--- OUTSIDE RECORDS SUMMARY | 2025-03-25 05:30 | XMS_ITS | Encounter Summary ---
Author Organization Healthcare Address [address] [id number] Care Team Providers Care Maintenance Service Supervisor Name Role Phone Km Wooten MD Unavailable [phone] Cmofort Siddiqi APRN Primary Care Provider [phone] Encounter Details Date Type Department Care Team (Late Contact Info) Description 03/25/2025 5:30 AM EDT Hospital Encounter [facility] [address] [id number] [place] [address] Arrived Social History Tobacco Use Types Packs/Day [...] Department Care Team (Late Contact Info) Description 03/29/2025 2:10 PM EDT Appointment [facility] [address] [address] 04/01/2025 2:10 PM EDT Appointment [facility] [address] [place] [address] 04/02/2025 2:10 PM EDT Appointment [facility] [address] [address] 04/03/2025 2:10 PM EDT Appointment [facility] [address] [address] 04/04/2025 2:10 PM EDT Appointment [facility] [address] [address] 04/05/2025 2:10 PM EDT Appointment [facility] [address] [address] 04/08/2025 2:10 PM EDT Appointment [facility] [address] [address] 04/09/2025 2:10 PM EDT Appointment [facility] [address] [address] 04/10/2025 2:10 PM EDT Appointment [facility] [address] [address] 04/11/2025 2:10 PM EDT Appointment [facility] [address] [address] 04/12/2025 2:10 PM EDT Appointment [facility] [address] [address] 04/15/2025 2:10 PM EDT Appointment [facility] [address] [address] 04/16/2025 2:10 PM EDT Appointment [facility] [address] [address] 04/17/2025 2:10 PM EDT Appointment [facility] [address] [address] 04/18/2025 2:10 PM EDT Appointment [facility] [address] [phone] 04/19/2025 2:10 PM EDT Appointment [facility] [address] [phone] 04/22/2025 2:10 PM EDT Appointment [facility] [address] [address] 04/23/2025 2:10 PM EDT Appointment [facility] [address] [address] 04/24/2025 2:10 PM EDT Appointment [facility] [address] [address] documented as of this encounter [...] as of this encounter Care Teams Maintenance Service Supervisor Relationship Specialty Start Date End Date Comfort Siddiqi APRN [address] [place] [address] PCP - General 03/12/25 Km Wooten MD [address] [facility] C114D [place] [address] Consulting Physician Radiation Oncology 02/14/25 documented as of this encounter
--- OUTSIDE RECORDS SUMMARY | 2025-03-25 13:35 | XMS_ITS | Encounter Summary ---
Author Organization Healthcare Address [address] [id number] Care Team Providers Care Chronometer Adjuster Name Role Phone Km Wooten MD Unavailable [phone] Comfort Siddiqi APRN Primary Care Provider [phone] Encounter Details Date Type Department Care Team (Late st Contact Info) Description 03/25/2025 1:35 PM EDT Hospital Encounter [facility] [address] [id number] [place] [address] Social History Tobacco Use Types Packs/Day Years [...] [facility] [address] [address] 04/01/2025 2:10 PM EDT Appointment [facility] [address] [address] 04/02/2025 2:10 PM EDT Appointment [facility] [address] [address] 04/03/2025 2:10 PM EDT Appointment [facility] [address] [address] 04/04/2025 2:10 PM EDT Appointment [facility] [address] [address] 04/05/2025 2:10 PM EDT Appointment [facility] [address] [address] 04/08/2025 2:10 PM EDT Appointment [facility] [address] [address] 04/09/2025 2:10 PM EDT Appointment [facility] [address] [address] 04/10/2025 2:10 PM EDT Appointment [facility] [address] [address] 04/11/2025 2:10 PM EDT Appointment [facility] [address] [address] 04/12/2025 2:10 PM EDT Appointment [facility] [address] [address] 04/15/2025 2:10 PM EDT Appointment [facility] [address] [address] 04/16/2025 2:10 PM EDT Appointment [facility] [address] [address] 04/17/2025 2:10 PM EDT Appointment [facility] [address] [address] 04/18/2025 2:10 PM EDT Appointment [facility] [address] [address] 04/19/2025 2:10 PM EDT Appointment [facility] [address] [address] 04/22/2025 2:10 PM EDT Appointment [facility] [address] [address] 04/23/2025 2:10 PM EDT Appointment [facility] [address] [address] 04/24/2025 2:10 PM EDT Appointment [facility] [address] [address] documented as of this encounter [...] documented as of this encounter Care Teams Chronometer Adjuster Relationship Specialty Start Date End Date Comfort Siddiqi APRN [address] [place] [address] PCP - General 03/12/25 Km Wooten MD 800 [facility] [id number] [place] [phone] Consulting Physician Radiation Oncology 02/14/25 documented as of this encounter
--- OUTSIDE RECORDS SUMMARY | 2025-03-26 13:30 | XMS_ITS | Encounter Summary ---
Author Organization Healthcare Address [address] [id number] Care Team Providers Care Stull Hewer Name Role Phone Km Wooten MD Unavailable [phone] Comfort Siddiqi APRN Primary Care Provider [phone] Encounter Details Date Type Department Care Team (Late st Contact Info) Description 03/26/2025 1:30 PM EDT Hospital Encounter [facility] [address] [id number] [place] [address] Social History Tobacco Use Types Packs/Day Years [...] Appointment [facility] [address] [address] 04/01/2025 2:10 PM EDT Appointment [facility] [address] [address] 04/02/2025 2:10 PM EDT Appointment [facility] [address] [phone] 04/03/2025 2:10 PM EDT Appointment [facility] [address] [address] 04/04/2025 2:10 PM EDT Appointment [facility] [address] [address] 04/05/2025 2:10 PM EDT Appointment [facility] [address] [address] 04/08/2025 2:10 PM EDT Appointment [facility] [address] [address] 04/09/2025 2:10 PM EDT Appointment [facility] [address] [address] 04/10/2025 2:10 PM EDT Appointment [facility] [address] [address] 04/11/2025 2:10 PM EDT Appointment [facility] [address] [address] 04/12/2025 2:10 PM EDT Appointment [facility] [address] [address] 04/15/2025 2:10 PM EDT Appointment [facility] [address] [address] 04/16/2025 2:10 PM EDT Appointment [facility] [address] [address] 04/17/2025 2:10 PM EDT Appointment [facility] [address] [address] 04/18/2025 2:10 PM EDT Appointment [facility] [address] [address] 04/19/2025 2:10 PM EDT Appointment [facility] [address] [address] 04/22/2025 2:10 PM EDT Appointment [facility] [address] [address] 04/23/2025 2:10 PM EDT Appointment [facility] [address] [address] 04/24/2025 2:10 PM EDT Appointment [facility] [address] [address] documented as of this encounter [...] documented as of this encounter Care Teams Stull Hewer Relationship Specialty Start Date End Date Comfort Siddiqi APRN [address] [place] [address] PCP - General 03/12/25 Km Wooten MD 800 [facility] C114D [place] [phone] Consulting Physician Radiation Oncology 02/14/25 documented as of this encounter
--- OUTSIDE RECORDS SUMMARY | 2025-03-27 13:38 | XMS_ITS | Encounter Summary ---
Author Organization Healthcare Address [address] [id number] Care Team Providers Care Choke Reamer Name Role Phone Km Wooten MD Unavailable [phone] Comfort Siddiqi APRN Primary Care Provider [phone] Encounter Details Date Type Department Care Team (Late st Contact Info) Description 03/27/2025 1:38 PM EDT Hospital Encounter [facility] [address] [id number] [place] [address] Social History Tobacco Use Types Packs/Day Years [...] Appointment [facility] [address] [address] 04/01/2025 2:10 PM EDT Appointment [facility] [address] [address] 04/02/2025 2:10 PM EDT Appointment [facility] [address] [phone] 04/03/2025 2:10 PM EDT Appointment [facility] [address] [address] 04/04/2025 2:10 PM EDT Appointment [facility] [address] [phone] 04/05/2025 2:10 PM EDT Appointment [facility] [address] [address] 04/08/2025 2:10 PM EDT Appointment [facility] [address] [phone] 04/09/2025 2:10 PM EDT Appointment [facility] [address] [address] 04/10/2025 2:10 PM EDT Appointment [facility] [address] [phone] 04/11/2025 2:10 PM EDT Appointment [facility] [address] [address] 04/12/2025 2:10 PM EDT Appointment [facility] [address] [address] 04/15/2025 2:10 PM EDT Appointment [facility] [address] [address] 04/16/2025 2:10 PM EDT Appointment [facility] [address] [address] 04/17/2025 2:10 PM EDT Appointment [facility] [address] [place] [phone] 04/18/2025 2:10 PM EDT Appointment [facility] [address] [phone] 04/19/2025 2:10 PM EDT Appointment [facility] [address] [phone] 04/22/2025 2:10 PM EDT Appointment [facility] [address] [phone] 04/23/2025 2:10 PM EDT Appointment [facility] [address] [phone] 04/24/2025 2:10 PM EDT Appointment [facility] [address] [address] documented as of this encounter [...] documented as of this encounter Care Teams Choke Reamer Relationship Specialty Start Date End Date Comfort Siddiqi APRN [address] [place] [address] PCP - General 03/12/25 Km Wooten MD 800 [facility] [address] [place] [phone] Consulting Physician Radiation Oncology 02/14/25 documented as of this encounter
--- OUTSIDE RECORDS SUMMARY | 2025-03-28 13:37 | XMS_ITS | Encounter Summary ---
Author Organization Healthcare Address [address] [id number] Care Team Providers Care Distribution Center Manager Name Role Phone Km Wooten MD Unavailable [phone] Comfort Siddiqi APRN Primary Care Provider [phone] Encounter Details Date Type Department Care Team (Late st Contact Info) Description 03/28/2025 1:37 PM EDT Hospital Encounter [facility] [address] [id number] [place] [address] Social History Tobacco Use Types Packs/Day Years [...] Appointment [facility] Radiation [address] [address] 04/01/2025 2:10 PM EDT Appointment [facility] Radiation [address] [address] 04/02/2025 2:10 PM EDT Appointment [facility] Radiation [address] [phone] 04/03/2025 2:10 PM EDT Appointment [facility] Radiation [address] [address] 04/04/2025 2:10 PM EDT Appointment [facility] Radiation [address] [address] 04/05/2025 2:10 PM EDT Appointment [facility] Radiation [address] [phone] 04/08/2025 2:10 PM EDT Appointment [facility] Radiation [address] [address] 04/09/2025 2:10 PM EDT Appointment [facility] Radiation [address] [address] 04/10/2025 2:10 PM EDT Appointment [facility] Radiation [address] [address] 04/11/2025 2:10 PM EDT Appointment [facility] Radiation [address] [address] 04/12/2025 2:10 PM EDT Appointment [facility] Radiation [address] [address] 04/15/2025 2:10 PM EDT Appointment [facility] Radiation [address] [address] 04/16/2025 2:10 PM EDT Appointment [facility] Radiation [address] [address] 04/17/2025 2:10 PM EDT Appointment [facility] Radiation [address] [address] 04/18/2025 2:10 PM EDT Appointment [facility] Radiation [address] [address] 04/19/2025 2:10 PM EDT Appointment [facility] Radiation [address] [address] 04/22/2025 2:10 PM EDT Appointment [facility] Radiation [address] [address] 04/23/2025 2:10 PM EDT Appointment [facility] Radiation [address] [address] 04/24/2025 2:10 PM EDT Appointment [facility] Radiation [address] [address] documented as of this [...] documented as of this encounter Care Teams Distribution Center Manager Relationship Specialty Start Date End Date Comfort Siddiqi APRN [address] [place] [address] PCP - General 03/12/25 Km Wooten MD 800 [facility] [address] [place] [phone] Consulting Physician Radiation Oncology 02/14/25 documented as of this encounter
--- OUTSIDE RECORDS SUMMARY | 2025-03-28 13:54 | XMS_ITS | Encounter Summary ---
Author Organization [facility] Address [address] [place] [address] Care Team Providers Care De Icer Installer Name Role Phone Km Wooten MD Unavailable [phone] Comfort Siddiqi APRN Primary Care Provider [phone] Reason for Visit * Reason Comments OTV Encounter Details Date Type Department Care Team (Latest Contact Info) Description 03/28/2025 1:54 PM EDT Hospital Encounter [facility] [address] JV126S [place] [address] Km Wooten MD [address] [place] [address] Malignant neoplasm of rectum (CMS/HCC) (Primary Dx) [...] Tripp is a 55 y.o. male with [id number] lower rectal adenocarcinoma receiving induction chemoradiation Radiation [...] radiation therapy as planned. Km Wooten MD Service Director [facility] Department [place] [address] documented in this encounter Plan of Treatment Upcoming Encounters Date Type Department Care Team (Late st Contact Info) Description 03/29/2025 2:10 PM EDT Appointment [facility]iation [address] [phone] 04/01/2025 2:10 PM EDT Appointment [facility] Radiation [address] [address] 04/02/2025 2:10 PM EDT Appointment [facility] [address] [phone] 04/03/2025 2:10 PM EDT Appointment [facility] Radiation [address] [phone] 04/04/2025 2:10 PM EDT Appointment [facility] [address] [phone] 04/05/2025 2:10 PM EDT Appointment [facility] [address] [phone] 04/08/2025 2:10 PM EDT Appointment [facility] [address] [phone] 04/09/2025 2:10 PM EDT Appointment [facility] Radiation [address] [phone] 04/10/2025 2:10 PM EDT Appointment [facility] Radiation [address] [phone] 04/11/2025 2:10 PM EDT Appointment [facility] Radiation [address] 04/12/2025 2:10 PM EDT Appointment [facility] Radiation [address] 04/15/2025 2:10 PM EDT Appointment [facility] Radiation [address] [address] 04/16/2025 2:10 PM EDT Appointment [facility] Radiation [address] [phone] 04/17/2025 2:10 PM EDT Appointment [facility] Radiation [address] [phone] 04/18/2025 2:10 PM EDT Appointment [facility] Radiation [address] [phone] 04/19/2025 2:10 PM EDT Appointment [facility] Radiation [address] [phone] 04/22/2025 2:10 PM EDT Appointment [facility] Radiation [address] [address] 04/23/2025 2:10 PM EDT Appointment [facility] Radiation [address] [phone] 04/24/2025 2:10 PM EDT Appointment [facility] Radiation [address] [phone] documented as of this encounter Goals Goal [...] documented as of this encounter Care Teams De Icer Installer Relationship Specialty Start Date End Date Comfort Siddiqi APRN [address] [place] [address] PCP - General 03/12/25 Km Wooten MD [address] [place] [phone] Consulting Physician Radiation Oncology 02/14/25 documented as of this encounter
--- OUTSIDE RECORDS SUMMARY | 2025-03-29 09:05 | XMS_ITS | Encounter Summary ---
Author Organization [facility] Address [address] [place] [address] Care Team Providers Care Marketing Regional Consultant Name Role Phone Km Wooten MD Unavailable [phone] Comfort Siddiqi APRN Primary Care Provider [phone] Encounter Details Date Type Department Care Team (Late st Contact Info) Description 03/25/2025 Orders Only [facility] [address] FP[address]V [place] [address] Radiation Oncology, Physician, [address] [place], [place] [id number] Social History Tobacco Use Types Packs/Day Years [...] Appointment [facility] Radiation [address] [phone] 04/01/2025 2:10 PM EDT Appointment [facility] Radiation [address] [phone] 04/02/2025 2:10 PM EDT Appointment [facility] Radiation [address] [address] 04/03/2025 2:10 PM EDT Appointment [facility] Radiation [address] [address] 04/04/2025 2:10 PM EDT Appointment [facility] Radiation [address] [address] 04/05/2025 2:10 PM EDT Appointment [facility] Radiation [address] [phone] 04/08/2025 2:10 PM EDT Appointment [facility] Radiation [address] [address] 04/09/2025 2:10 PM EDT Appointment [facility] Radiation [address] [phone] 04/10/2025 2:10 PM EDT Appointment [facility] Radiation [address] [phone] 04/11/2025 2:10 PM EDT Appointment [facility] Radiation [address] [phone] 04/12/2025 2:10 PM EDT Appointment [facility] Radiation [address] [phone] 04/15/2025 2:10 PM EDT Appointment [facility] Radiation [address] [phone] 04/16/2025 2:10 PM EDT Appointment [facility] [address] 04/17/2025 2:10 PM EDT Appointment [facility] Radiation [address] [phone] 04/18/2025 2:10 PM EDT Appointment [facility] Radiation [address] [place] [address] 04/19/2025 2:10 PM EDT Appointment [facility] Radiation [address] [place] [address] 04/22/2025 2:10 PM EDT Appointment [facility] Radiation [address] [address] 04/23/2025 2:10 PM EDT Appointment [facility] Radiation [address] 04/24/2025 2:10 PM EDT Appointment [facility] Radiation [address] [address] documented as of this encounter Goals Goal Patient Goal Type Associated Problems Recent Progress Patient-Stated? Author Autogenerat ed Goal Care Plan Autogenerated Problem No PrestonLisa Jeovany documented as of this encounter Procedures Procedure Name Priority Date/Time Associated Diagnosis Comments RAD ONC ARIA SESSION SUMMARY Routine 03/25/2025 2:49 PM EDT documented in this encounter Results * Rad Onc Aria Session Summary (03/25/2025 2:49 PM EDT) Course ID C1 ARIA RADIATION ONCOLOGY Course Intent Curative w/chemo ARIA RADIATION ONCOLOGY Course Start Date 03/01/2025 8:45 AM ARIA RADIATION ONCOLOGY Course First Treatment Date 03/21/2025 2:04 PM ARIA RADIATION ONCOLOGY Course Last Treatment Date 03/25/2025 2:48 PM ARIA RADIATION ONCOLOGY Course Elapsed Days 4 ARIA RADIATION ONCOLOGY Reference Point ID Pelvis ARIA RADIATION ONCOLOGY Reference Point Dosage Given to Date [id number] Gy ARIA RADIATION ONCOLOGY Reference Point Session Dosage Given [id number] Gy ARIA RADIATION ONCOLOGY Plan ID [id number] ARIA RADIATION ONCOLOGY Plan Name Pelvis& inguinals_PT V50 ARIA RADIATION ONCOLOGY Plan Fractions Treated to Date 3 ARIA RADIATION ONCOLOGY Plan Total Fractions Prescribed 25 ARIA RADIATION ONCOLOGY Plan Prescribed Dose Per Fraction 2 Gy ARIA RADIATION ONCOLOGY Plan Total Prescribed Dose 5,000 CGy ARIA RADIATION ONCOLOGY Plan Primary Reference Point Pelvis ARIA RADIATION ONCOLOGY 03/25/2025 2:49 PM EDT Physician Radiation Oncology RADIATION ONCOLO GY ORDERABLES Final Result ARIA RADIATION ONCOLOGY documented in this encounter Visit Diagnoses Not [...] documented as of this encounter Care Teams Marketing Regional Consultant Relationship Specialty Start Date End Date Comfort Siddiqi APRN [address] [place] [address] PCP - General 03/12/25 Km Wooten MD [id number] [place] [address] Consulting Physician Radiation Oncology 02/14/25 documented as of this encounter
--- OUTSIDE RECORDS SUMMARY | 2025-03-29 09:05 | XMS_ITS | Encounter Summary ---
Author Organization [facility] Address [address] [place] [address] Care Team Providers Care Call Person Name Role Phone Km Wooten MD Unavailable [phone] Comfort Siddiqi APRN Primary Care Provider [phone] Encounter Details Date Type Department Care Team (Latest Contact Info) Description 03/25/2025 Travel Social History Tobacco Use Types Packs/Day [...] Appointment [facility] [address] EX[address] [place] [address] 04/01/2025 2:10 PM EDT Appointment [facility] Radiation [address] [place] [address] 04/02/2025 2:10 PM EDT Appointment [facility] Radiation [address] [place] [address] 04/03/2025 2:10 PM EDT Appointment [facility] Radiation [address] [address] 04/04/2025 2:10 PM EDT Appointment [facility] Radiation [address] [address] 04/05/2025 2:10 PM EDT Appointment [facility] Radiation [address] [address] 04/08/2025 2:10 PM EDT Appointment [facility] Radiation [address] [address] 04/09/2025 2:10 PM EDT Appointment [facility] Radiation [address] [address] 04/10/2025 2:10 PM EDT Appointment [facility] Radiation [address] [address] 04/11/2025 2:10 PM EDT Appointment [facility] Radiation [address] [address] 04/12/2025 2:10 PM EDT Appointment [facility] Radiation [address] [address] 04/15/2025 2:10 PM EDT Appointment [facility] Radiation [address] [address] 04/16/2025 2:10 PM EDT Appointment [facility] Radiation [address] [address] 04/17/2025 2:10 PM EDT Appointment [facility] Radiation [address] [address] 04/18/2025 2:10 PM EDT Appointment [facility] Radiation [address] [phone] 04/19/2025 2:10 PM EDT Appointment [facility] Radiation [address] [phone] 04/22/2025 2:10 PM EDT Appointment [facility] Radiation [address] [phone] 04/23/2025 2:10 PM EDT Appointment [facility] Radiation [address] [phone] 04/24/2025 2:10 PM EDT Appointment [facility] Radiation [address] [address] documented as of this [...] documented as of this encounter Care Teams Call Person Relationship Specialty Start Date End Date Comfort Siddiqi APRN [address] [place] [address] PCP - General 03/12/25 Km Wooten MD [address] [place] [address] Consulting Physician Radiation Oncology 02/14/25 documented as of this encounter
--- OUTSIDE RECORDS SUMMARY | 2025-03-29 09:06 | XMS_ITS | Encounter Summary ---
Author Organization [facility] Address [address] [place] [address] Care Team Providers Care Tower Technician Name Role Phone Km Wooten MD Unavailable [phone] Comfort Siddiqi APRN Primary Care Provider [phone] Encounter Details Date Type Department Care Team (Late st Contact Info) Description 03/22/2025 Orders Only [facility] Radiation [address] FI[address]T [place] [address] Radiation Oncology, Physician, [address] [place], [place] [phone] Social History Tobacco Use Types Packs/Day Years [...] [facility] CC Radiation [address] [phone] 04/01/2025 2:10 PM EDT Appointment [facility] Radiation [address] [phone] 04/02/2025 2:10 PM EDT Appointment [facility] Radiation [address] [phone] 04/03/2025 2:10 PM EDT Appointment [facility] Radiation [address] [address] 04/04/2025 2:10 PM EDT Appointment [facility] Radiation [address] [phone] 04/05/2025 2:10 PM EDT Appointment [facility] Radiation [address] [phone] 04/08/2025 2:10 PM EDT Appointment [facility] Radiation [address] [address] 04/09/2025 2:10 PM EDT Appointment [facility] Radiation [address] [address] 04/10/2025 2:10 PM EDT Appointment [facility] Radiation [address] [address] 04/11/2025 2:10 PM EDT Appointment [facility] Radiation [address] [phone] 04/12/2025 2:10 PM EDT Appointment [facility] Radiation [address] [phone] 04/15/2025 2:10 PM EDT Appointment [facility] Radiation [address] [phone] 04/16/2025 2:10 PM EDT Appointment [facility] Radiation [address] 04/17/2025 2:10 PM EDT Appointment [facility] Radiation [address] 04/18/2025 2:10 PM EDT Appointment [facility] Radiation [address] [place] [address] 04/19/2025 2:10 PM EDT Appointment [facility] Radiation [address] [place] [address] 04/22/2025 2:10 PM EDT Appointment [facility] Radiation [address] [address] 04/23/2025 2:10 PM EDT Appointment [facility] Radiation [address] 04/24/2025 2:10 PM EDT Appointment [facility] Radiation [address] [address] documented as of this encounter Goals Goal Patient Goal Type Associated Problems Recent Progress Patient-Stated? Author Autogenerat ed Goal Care Plan Autogenerated Problem No PrestonLisa Jeovany documented as of this encounter Procedures Procedure Name Priority Date/Time Associated Diagnosis Comments RAD ONC ARIA SESSION SUMMARY Routine 03/22/2025 2:22 PM EDT documented in this encounter Results * Rad Onc Aria Session Summary (03/22/2025 2:22 PM EDT) Course ID C1 ARIA RADIATION ONCOLOGY Course Intent Curative w/chemo ARIA RADIATION ONCOLOGY Course Start Date 03/01/2025 8:45 AM ARIA RADIATION ONCOLOGY Course First Treatment Date 03/21/2025 2:04 PM ARIA RADIATION ONCOLOGY Course Last Treatment Date 03/22/2025 2:20 PM ARIA RADIATION ONCOLOGY Course Elapsed Days 1 ARIA RADIATION ONCOLOGY Reference Point ID Pelvis ARIA RADIATION ONCOLOGY Reference Point Dosage Given to Date [id number] Gy ARIA RADIATION ONCOLOGY Reference Point Session Dosage Given [id number] Gy ARIA RADIATION ONCOLOGY Plan ID A1A8 ARIA RADIATION ONCOLOGY Plan Name Pelvis& inguinals_PT V50 ARIA RADIATION ONCOLOGY Plan Fractions Treated to Date 2 ARIA RADIATION ONCOLOGY Plan Total Fractions Prescribed 25 ARIA RADIATION ONCOLOGY Plan Prescribed Dose Per Fraction 2 Gy ARIA RADIATION ONCOLOGY Plan Total Prescribed Dose 5,000 CGy ARIA RADIATION ONCOLOGY Plan Primary Reference Point Pelvis ARIA RADIATION ONCOLOGY 03/22/2025 2:22 PM EDT Physician Radiation Oncology RADIATION ONCOLO [...] documented as of this encounter Care Teams Tower Technician Relationship Specialty Start Date End Date Comfort Siddiqi APRN [address] [place] [address] PCP - General 03/12/25 Km Wooten MD [address] [facility] [address] [place] [address] Consulting Physician Radiation Oncology 02/14/25 documented as of this encounter
--- OUTSIDE RECORDS SUMMARY | 2025-03-29 09:06 | XMS_ITS | Encounter Summary ---
Author Organization [facility] Address [address] [place] [address] Care Team Providers Care Orchard Manager Name Role Phone Tejal Saeed APRN Primary Care Provider [phone] Km Wooten MD Unavailable [phone] Comfort Siddiqi APRN Primary Care Provider [phone] Encounter Details Date Type Department Care Team (Late st Contact Info) Description 01/08/2025 Orders Only External Location [address] [place] [address] Provider, External Social History Tobacco Use Types [...] PM EDT Appointment [facility] Radiation [address] [address] 04/01/2025 2:10 PM EDT Appointment [facility] Radiation [address] [phone] 04/02/2025 2:10 PM EDT Appointment [facility] Radiation [address] [phone] 04/03/2025 2:10 PM EDT Appointment [facility] CC Radiation [address] [phone] 04/04/2025 2:10 PM EDT Appointment [facility] Radiation [address] [phone] 04/05/2025 2:10 PM EDT Appointment [facility] CC Radiation [address] [address] 04/08/2025 2:10 PM EDT Appointment [facility] CC Radiation [address] [phone] 04/09/2025 2:10 PM EDT Appointment [facility] CC Radiation [address] [address] 04/10/2025 2:10 PM EDT Appointment [facility] CC Radiation [address] [phone] 04/11/2025 2:10 PM EDT Appointment [facility] CC Radiation [address] [address] 04/12/2025 2:10 PM EDT Appointment [facility] Radiation [address] [address] 04/15/2025 2:10 PM EDT Appointment [facility] CC Radiation [address] [address] 04/16/2025 2:10 PM EDT Appointment [facility] CC Radiation [address] [phone] 04/17/2025 2:10 PM EDT Appointment [facility] CC Radiation [address] [address] 04/18/2025 2:10 PM EDT Appointment [facility] Radiation [address] [phone] 04/19/2025 2:10 PM EDT Appointment [facility] CC Radiation [address] [phone] 04/22/2025 2:10 PM EDT Appointment [facility] CC Radiation [address] [place] [address] 04/23/2025 2:10 PM EDT Appointment P[facility] CC Radiation [address] [place] [address] 04/24/2025 2:10 PM EDT Appointment P[facility] CC Radiation 800 [facility] [place] [address] documented as of this encounter Procedures Procedure [...] on filedocumented in this encounter Care Teams Orchard Manager Relationship Specialty Start Date End Date Tejal Saeed APRN [address] [place] [address] PCP - General 11/07/20 03/11/25 Comfort Siddiqi APRN [address] [place] [address] PCP - General 03/12/25 Km Wooten MD [address] [place] [address] [address] [place] [address] Consulting Physician Radiation Oncology 02/14/25 documented as of this encounter
--- OUTSIDE RECORDS SUMMARY | 2025-03-29 09:06 | XMS_ITS | Encounter Summary ---
Author Organization [facility] Address [address] [place] [address] Care Team Providers Care Psych Arnp Name Role Phone Tejal Saeed APRN Primary Care Provider [phone] Km Wooten MD Unavailable [phone] Comfort Siddiqi APRN Primary Care Provider [phone] Encounter Details Date Type Department Care Team (Late st Contact Info) Description 01/08/2025 Orders Only External Location [address] [place] [address] Provider, External Social History Tobacco [...] PM EDT Appointment [facility] Radiation [address] [address] 04/01/2025 2:10 PM EDT Appointment [facility] Radiation [address] [address] 04/02/2025 2:10 PM EDT Appointment [facility] Radiation [address] [address] 04/03/2025 2:10 PM EDT Appointment [facility] Radiation [address] [address] 04/04/2025 2:10 PM EDT Appointment P[facility] CC Radiation [address] [address] 04/05/2025 2:10 PM EDT Appointment [facility] CC Radiation [address] [address] 04/08/2025 2:10 PM EDT Appointment P[facility] CC Radiation [address] [address] 04/09/2025 2:10 PM EDT Appointment PAV CC Radiation [address] [address] 04/10/2025 2:10 PM EDT Appointment P[facility] CC Radiation [address] [address] 04/11/2025 2:10 PM EDT Appointment P[facility] CC Radiation [address] [address] 04/12/2025 2:10 PM EDT Appointment P[facility] CC Radiation [address] [address] 04/15/2025 2:10 PM EDT Appointment P[facility] CC Radiation [address] [address] 04/16/2025 2:10 PM EDT Appointment P[facility] CC Radiation [address] [address] 04/17/2025 2:10 PM EDT Appointment P[facility] CC Radiation [address] [address] 04/18/2025 2:10 PM EDT Appointment P[facility] CC Radiation [address] [address] 04/19/2025 2:10 PM EDT Appointment P[facility] CC Radiation [address] [address] 04/22/2025 2:10 PM EDT Appointment P[facility] CC Radiation [address] [place] [address] 04/23/2025 2:10 PM EDT Appointment P[facility] CC Radiation [address] LW[address]I [place] [address] 04/24/2025 2:10 PM EDT Appointment PAV CC Radiation 800 [facility]. [id number] [place] [address] documented as of this encounter Procedures Procedure [...] on filedocumented in this encounter Care Teams Psych Arnp Relationship Specialty Start Date End Date Tejal Saeed APRN [address] [place] [address] PCP - General 11/07/20 03/11/25 Comfort Siddiqi APRN [address] [place] [address] PCP - General 03/12/25 Km Wooten MD 800 [facility] [address] [place] [address] Consulting Physician Radiation Oncology 02/14/25 documented as of this encounter
--- OUTSIDE RECORDS SUMMARY | 2025-03-29 09:06 | XMS_ITS | Encounter Summary ---
Author Organization [facility] Address [address] [place] [address] Care Team Providers Care Quarrying Specialist Name Role Phone Tejal Saeed APRN Primary Care Provider [phone] Km Wooten MD Unavailable [phone] Encounter Details Date Type Department Care Team (Late st Contact Info) Description 02/20/2025 Telephone [facility] [address], [address] [place] [address] [place] [address] Social History Tobacco Use Types Packs/Day Years [...] appointment made, need PSA lab test, called [facility], she will fax to our office. Susi Bustos RN documented in this encounter Plan of Treatment Upcoming Encounters Date Type Department Care Team (Late st Contact Info) Description 03/29/2025 2:10 PM EDT Appointment [facility] CC Radiation [address] [address] 04/01/2025 2:10 PM EDT Appointment P[facility] CC Radiation [address] [address] 04/02/2025 2:10 PM EDT Appointment [facility] Radiation [address] [address] 04/03/2025 2:10 PM EDT Appointment P[facility] CC Radiation [address] [address] 04/04/2025 2:10 PM EDT Appointment [facility] Radiation [address] [address] 04/05/2025 2:10 PM EDT Appointment [facility] Radiation [address] [address] 04/08/2025 2:10 PM EDT Appointment [facility] Radiation [address] [address] 04/09/2025 2:10 PM EDT Appointment [facility] CC Radiation [address] [address] 04/10/2025 2:10 PM EDT Appointment P[facility] CC Radiation [address] [address] 04/11/2025 2:10 PM EDT Appointment [facility] CC Radiation [address] [address] 04/12/2025 2:10 PM EDT Appointment P[facility] CC Radiation [address] [address] 04/15/2025 2:10 PM EDT Appointment [facility] CC Radiation [address] [address] 04/16/2025 2:10 PM EDT Appointment P[facility] CC Radiation [address] [place] [address] 04/17/2025 2:10 PM EDT Appointment P[facility] CC Radiation [address] [address] 04/18/2025 2:10 PM EDT Appointment P[facility] CC Radiation [address] [address] 04/19/2025 2:10 PM EDT Appointment P[facility] CC Radiation [address] [address] 04/22/2025 2:10 PM EDT Appointment P[facility] CC Radiation [address] [address] 04/23/2025 2:10 PM EDT Appointment [facility] Radiation [address] [address] 04/24/2025 2:10 PM EDT Appointment [facility] CC Radiation [address] [address] documented as of this encounter Visit Diagnoses [...] documented as of this encounter Care Teams Quarrying Specialist Relationship Specialty Start Date End Date Tejal Saeed APRN [address] [place] [address] PCP - General 11/07/20 03/11/25 Km Wooten MD [address] [facility] [address] [place] [address] Consulting Physician Radiation Oncology 02/14/25 documented as of this encounter
--- OUTSIDE RECORDS SUMMARY | 2025-03-29 09:06 | XMS_ITS | Encounter Summary ---
Author Organization [facility] Address [address] [place] [address] Care Team Providers Care Heel Attacher Name Role Phone Tejal Saeed APRN Primary Care Provider [phone] Km Wooten MD Unavailable [phone] Encounter Details Date Type Department Care [...] Appointment [facility] Radiation [address] [address] 04/01/2025 2:10 PM EDT Appointment [facility] Radiation [address] [address] 04/02/2025 2:10 PM EDT Appointment [facility] Radiation [address] [address] 04/03/2025 2:10 PM EDT Appointment P[facility] CC Radiation [address] [place] [phone] 04/04/2025 2:10 PM EDT Appointment P[facility] CC Radiation [address] [place] [address] 04/05/2025 2:10 PM EDT Appointment [facility] CC Radiation [address] [phone] 04/08/2025 2:10 PM EDT Appointment [facility] CC Radiation [address] [phone] 04/09/2025 2:10 PM EDT Appointment P[facility] CC Radiation [address] [phone] 04/10/2025 2:10 PM EDT Appointment [facility] CC Radiation [address] [phone] 04/11/2025 2:10 PM EDT Appointment P[facility] CC Radiation [address] [address] 04/12/2025 2:10 PM EDT Appointment P[facility] CC Radiation [address] [address] 04/15/2025 2:10 PM EDT Appointment P[facility] CC Radiation [address] [address] 04/16/2025 2:10 PM EDT Appointment P[facility] CC Radiation [address] [phone] 04/17/2025 2:10 PM EDT Appointment [facility] CC Radiation [address] [address] 04/18/2025 2:10 PM EDT Appointment P[facility] CC Radiation [address] [address] 04/19/2025 2:10 PM EDT Appointment [facility] CC Radiation [address] [address] 04/22/2025 2:10 PM EDT Appointment [facility] Radiation [address] [id number] [place] [address] 04/23/2025 2:10 PM EDT Appointment [facility] Radiation [address] WL[address] [place] [address] 04/24/2025 2:10 PM EDT Appointment P[facility] CC Radiation [address] [place] [address] documented as of this encounter Visit Diagnoses [...] documented as of this encounter Care Teams Heel Attacher Relationship Specialty Start Date End Date Tejal Saeed APRN [facility] [place] [address] PCP - General 11/07/20 03/11/25 Km Wooten MD [address] [facility] [address] [place] [address] Consulting Physician Radiation Oncology 02/14/25 documented as of this encounter
--- OUTSIDE RECORDS SUMMARY | 2025-03-29 09:06 | XMS_ITS | Encounter Summary ---
Author Organization [facility] Address [address] [place] [address] Care Team Providers Care Investigator Fraud Name Role Phone Tejal Saeed APRN Primary Care Provider [phone] Km Wooten MD Unavailable [phone] Encounter Details Date Type Department Care Team (Late st Contact Info) Description 02/26/2025 Telephone [place] [facility] [address], [address] [place] [address] Perlita Her I, RN [facility]IC Social History Tobacco Use Types [...] PAV CC Radiation [address] [phone] 04/01/2025 2:10 PM EDT Appointment [facility] CC Radiation [address] [phone] 04/02/2025 2:10 PM EDT Appointment P[facility] CC Radiation [address] [address] 04/03/2025 2:10 PM EDT Appointment P[facility] CC Radiation [address] [address] 04/04/2025 2:10 PM EDT Appointment [facility] CC Radiation [address] [address] 04/05/2025 2:10 PM EDT Appointment [facility] CC Radiation [address] [address] 04/08/2025 2:10 PM EDT Appointment P[facility] CC Radiation [address] [address] 04/09/2025 2:10 PM EDT Appointment P[facility] CC Radiation [address] [address] 04/10/2025 2:10 PM EDT Appointment [facility] CC Radiation [address] [address] 04/11/2025 2:10 PM EDT Appointment [facility] CC Radiation [address] [address] 04/12/2025 2:10 PM EDT Appointment P[facility] CC Radiation [address] [address] 04/15/2025 2:10 PM EDT Appointment P[facility] CC Radiation [address] [address] 04/16/2025 2:10 PM EDT Appointment P[facility] CC Radiation [address] [address] 04/17/2025 2:10 PM EDT Appointment P[facility] CC Radiation [address] [address] 04/18/2025 2:10 PM EDT Appointment P[facility] CC Radiation [address] [address] 04/19/2025 2:10 PM EDT Appointment [facility] Radiation [address] [address] 04/22/2025 2:10 PM EDT Appointment [facility] CC Radiation [address] [address] 04/23/2025 2:10 PM EDT Appointment [facility] Radiation [address] [address] 04/24/2025 2:10 PM EDT Appointment P[facility] CC Radiation [address] [phone] documented as of this encounter Visit Diagnoses [...] documented as of this encounter Care Teams Investigator Fraud Relationship Specialty Start Date End Date Tejal Saeed APRN [address] [place] [address] PCP - General 11/07/20 03/11/25 Km Wooten MD [address] [facility] [address] [place] [address] Consulting Physician Radiation Oncology 02/14/25 documented as of this encounter
--- OUTSIDE RECORDS SUMMARY | 2025-03-29 09:06 | XMS_ITS | Encounter Summary ---
Author Organization [facility] Address [address] [place] [address] Care Team Providers Care Software Recruiter Name Role Phone Km Wooten MD Unavailable [phone] Comfort Siddiqi APRN Primary Care Provider [phone] Encounter Details Date Type Department Care Team (Late st Contact Info) Description 03/28/2025 Orders Only [facility] Radiation [address] [id number] [place] [address] Radiation Oncology, Physician, [address] [place], [place] [id number] Social History Tobacco Use Types Packs/Day Years [...] P[facility] CC Radiation [address] [phone] 04/01/2025 2:10 PM EDT Appointment P[facility] CC Radiation [address] [address] 04/02/2025 2:10 PM EDT Appointment P[facility] CC Radiation [address] [phone] 04/03/2025 2:10 PM EDT Appointment P[facility] CC Radiation [address] [address] 04/04/2025 2:10 PM EDT Appointment P[facility] CC Radiation [address] [address] 04/05/2025 2:10 PM EDT Appointment P[facility] CC Radiation [address] [phone] 04/08/2025 2:10 PM EDT Appointment P[facility] CC Radiation [address] [address] 04/09/2025 2:10 PM EDT Appointment P[facility] CC Radiation [address] [address] 04/10/2025 2:10 PM EDT Appointment P[facility] CC Radiation [address] [address] 04/11/2025 2:10 PM EDT Appointment P[facility] CC Radiation [address] [address] 04/12/2025 2:10 PM EDT Appointment P[facility] CC Radiation [address] [address] 04/15/2025 2:10 PM EDT Appointment P[facility] CC Radiation [address] [phone] 04/16/2025 2:10 PM EDT Appointment P[facility] CC Radiation [address] 04/17/2025 2:10 PM EDT Appointment P[facility] CC Radiation [address] [phone] 04/18/2025 2:10 PM EDT Appointment PAV CC Radiation [address] [place] [address] 04/19/2025 2:10 PM EDT Appointment PAV CC Radiation [address] [place] [address] 04/22/2025 2:10 PM EDT Appointment P[facility] CC Radiation [address] [place] [address] 04/23/2025 2:10 PM EDT Appointment PAV CC Radiation [address] 04/24/2025 2:10 PM EDT Appointment PAV CC Radiation [address] [place] [address] documented as of this encounter Goals Goal Patient Goal Type Associated Problems Recent Progress Patient-Stated? Author Autogenerat ed Goal Care Plan Autogenerated Problem No PrestonLisa Jeovany documented as of this encounter Procedures Procedure Name Priority Date/Time Associated Diagnosis Comments RAD ONC ARIA SESSION SUMMARY Routine 03/28/2025 1:54 PM EDT documented in this encounter Results * Rad Onc Aria Session Summary (03/28/2025 1:54 PM EDT) Course ID C1 ARIA RADIATION ONCOLOGY Course Intent Curative w/chemo ARIA RADIATION ONCOLOGY Course Start Date 03/01/2025 8:45 AM ARIA RADIATION ONCOLOGY Course First Treatment Date 03/21/2025 2:04 PM ARIA RADIATION ONCOLOGY Course Last Treatment Date 03/28/2025 1:53 PM ARIA RADIATION ONCOLOGY Course Elapsed Days 7 ARIA RADIATION ONCOLOGY Reference Point ID Pelvis ARIA RADIATION ONCOLOGY Reference Point Dosage Given to Date [id number] Gy ARIA RADIATION ONCOLOGY Reference Point Session Dosage Given [id number] Gy ARIA RADIATION ONCOLOGY Plan ID [id number] ARIA RADIATION ONCOLOGY Plan Name Pelvis& inguinals_PT V50 ARIA RADIATION ONCOLOGY Plan Fractions Treated to Date 6 ARIA RADIATION ONCOLOGY Plan Total Fractions Prescribed 25 ARIA RADIATION ONCOLOGY Plan Prescribed Dose Per Fraction 2 Gy ARIA RADIATION ONCOLOGY Plan Total Prescribed Dose 5,000 CGy ARIA RADIATION ONCOLOGY Plan Primary Reference Point Pelvis ARIA RADIATION ONCOLOGY 03/28/2025 1:54 PM EDT Physician Radiation Oncology RADIATION ONCOLO [...] as of this encounter Care Teams Software Recruiter Relationship Specialty Start Date End Date Comfort Siddiqi APRN [address] [place] [address] PCP - General 03/12/25 Km Wooten MD [address] [place] [id number] [place] [address] Consulting Physician Radiation Oncology 02/14/25 documented as of this encounter
--- OUTSIDE RECORDS SUMMARY | 2025-03-29 09:06 | XMS_ITS | Encounter Summary ---
Author Organization Healthcare Address [address] [place] [address] Care Team Providers Care Paper Sample Clerk Name Role Phone Tejal Saeed APRN Primary Care Provider [phone] Km Wooten MD Unavailable [phone] Encounter Details Date Type Department Care Team (Late Contact Info) Description 02/21/2025 Telephone [facility] Head, Neck & Respiratory 800 [facility], [address]nd [place] [address] Eric Tellez MD [address] [place] [address] Social History Tobacco Use Types [...] PM EDT Appointment PAV CC Radiation 800 [facility]. [id number] [place] [address] 04/01/2025 2:10 PM EDT Appointment P[facility] CC Radiation [address] [place] [address] 04/02/2025 2:10 PM EDT Appointment PAV CC Radiation [address] [place] [address] 04/03/2025 2:10 PM EDT Appointment PAV CC Radiation [address] [phone] 04/04/2025 2:10 PM EDT Appointment P[facility] CC Radiation [address] [address] 04/05/2025 2:10 PM EDT Appointment P[facility] CC Radiation [address] [address] 04/08/2025 2:10 PM EDT Appointment PAV CC Radiation [address] [phone] 04/09/2025 2:10 PM EDT Appointment PAV CC Radiation [address] [phone] 04/10/2025 2:10 PM EDT Appointment PAV CC Radiation [address] [address] 04/11/2025 2:10 PM EDT Appointment PAV CC Radiation [address] [address] 04/12/2025 2:10 PM EDT Appointment PAV CC Radiation [address] [address] 04/15/2025 2:10 PM EDT Appointment PAV CC Radiation [address] [address] 04/16/2025 2:10 PM EDT Appointment PAV CC Radiation [address] [address] 04/17/2025 2:10 PM EDT Appointment PAV CC Radiation [address] [address] 04/18/2025 2:10 PM EDT Appointment P[facility] CC Radiation [address] [id number] [place] [address] 04/19/2025 2:10 PM EDT Appointment P[facility] CC Radiation [address] [id number] [place] [address] 04/22/2025 2:10 PM EDT Appointment P[facility] CC Radiation [address] RC[address] [place] [address] 04/23/2025 2:10 PM EDT Appointment P[facility] CC Radiation [address] [id number] [place] [address] 04/24/2025 2:10 PM EDT Appointment PAV CC Radiation [address] [place] [address] documented as of this encounter Visit Diagnoses [...] documented as of this encounter Care Teams Paper Sample Clerk Relationship Specialty Start Date End Date Tejal Saeed APRN [address] [place] [address] PCP - General 11/07/20 03/11/25 Km Wooten MD [address] [facility] [address] [place] [address] Consulting Physician Radiation Oncology 02/14/25 documented as of this encounter
--- OUTSIDE RECORDS SUMMARY | 2025-03-29 09:06 | XMS_ITS | Encounter Summary ---
Author Organization Healthcare Address [address] [place] [address] Care Team Providers Care Gas Pit Worker Name Role Phone Km Wooten MD Unavailable [phone] Comfort Siddiqi APRN Primary Care Provider [phone] Encounter Details Date Type Department Care Team (Late st Contact Info) Description 03/27/2025 Orders Only P[facility] CC Radiation [address] [id number] [place] [address] Radiation Oncology, Physician, [address] [place], [place] [phone] Social History Tobacco Use Types Packs/Day Years [...] PAV CC Radiation [address] [phone] 04/01/2025 2:10 PM EDT Appointment PAV CC Radiation [address] [address] 04/02/2025 2:10 PM EDT Appointment PAV CC Radiation [address] [address] 04/03/2025 2:10 PM EDT Appointment PAV CC Radiation [address] [address] 04/04/2025 2:10 PM EDT Appointment PAV CC Radiation [address] [address] 04/05/2025 2:10 PM EDT Appointment PAV CC Radiation [address] [address] 04/08/2025 2:10 PM EDT Appointment PAV CC Radiation [address] [phone] 04/09/2025 2:10 PM EDT Appointment PAV CC Radiation [address] [address] 04/10/2025 2:10 PM EDT Appointment PAV CC Radiation [address] [address] 04/11/2025 2:10 PM EDT Appointment P[facility] CC Radiation [address] [phone] 04/12/2025 2:10 PM EDT Appointment PAV CC Radiation [address] [address] 04/15/2025 2:10 PM EDT Appointment PAV CC Radiation [address] [phone] 04/16/2025 2:10 PM EDT Appointment PAV CC Radiation [address] 04/17/2025 2:10 PM EDT Appointment PAV CC Radiation [address]0001 04/18/2025 2:10 PM EDT Appointment PAV CC Radiation [address] [place] [address] 04/19/2025 2:10 PM EDT Appointment PAV CC Radiation [address] [place] [address] 04/22/2025 2:10 PM EDT Appointment PAV CC Radiation [address] [place] [address] 04/23/2025 2:10 PM EDT Appointment PAV CC Radiation [address] 04/24/2025 2:10 PM EDT Appointment PAV CC Radiation [address] [place] [address] documented as of this encounter Goals Goal Patient Goal Type Associated Problems Recent Progress Patient-Stated? Author Autogenerat ed Goal Care Plan Autogenerated Problem No PrestonLisa Jeovany documented as of this encounter Procedures Procedure Name Priority Date/Time Associated Diagnosis Comments RAD ONC ARIA SESSION SUMMARY Routine 03/27/2025 2:10 PM EDT documented in this encounter Results * Rad Onc Aria Session Summary (03/27/2025 2:10 PM EDT) Course ID C1 ARIA RADIATION ONCOLOGY Course Intent Curative w/chemo ARIA RADIATION ONCOLOGY Course Start Date 03/01/2025 8:45 AM ARIA RADIATION ONCOLOGY Course First Treatment Date 03/21/2025 2:04 PM ARIA RADIATION ONCOLOGY Course Last Treatment Date 03/27/2025 2:08 PM ARIA RADIATION ONCOLOGY Course Elapsed Days 6 ARIA RADIATION ONCOLOGY Reference Point ID Pelvis ARIA RADIATION ONCOLOGY Reference Point Dosage Given to Date [id number] Gy ARIA RADIATION ONCOLOGY Reference Point Session Dosage Given [id number] Gy ARIA RADIATION ONCOLOGY Plan ID [id number] ARIA RADIATION ONCOLOGY Plan Name Pelvis& inguinals_PT V50 ARIA RADIATION ONCOLOGY Plan Fractions Treated to Date 5 ARIA RADIATION ONCOLOGY Plan Total Fractions Prescribed 25 ARIA RADIATION ONCOLOGY Plan Prescribed Dose Per Fraction 2 Gy ARIA RADIATION ONCOLOGY Plan Total Prescribed Dose 5,000 CGy ARIA RADIATION ONCOLOGY Plan Primary Reference Point Pelvis ARIA RADIATION ONCOLOGY 03/27/2025 2:10 PM EDT Physician Radiation Oncology RADIATION ONCOLO [...] documented as of this encounter Care Teams Gas Pit Worker Relationship Specialty Start Date End Date Comfort Siddiqi APRN [address] [place] [address] PCP - General 03/12/25 Km Wooten MD [address] [id number] [place] [address] Consulting Physician Radiation Oncology 02/14/25 documented as of this encounter
--- OUTSIDE RECORDS SUMMARY | 2025-03-29 09:06 | XMS_ITS | Encounter Summary ---
Author Organization Healthcare Address [address] [place] [address] Care Team Providers Care Auditor Supervisor Name Role Phone Km Wooten MD Unavailable [phone] Comfort Siddiqi APRN Primary Care Provider [phone] Encounter Details Date Type Department Care Team (Late st Contact Info) Description 03/26/2025 Orders Only [facility] [address] [place] [address] Radiation Oncology, Physician, [address] [place], [place] [id number] Social History Tobacco Use Types Packs/Day Years [...] [facility] [address] [address] 04/01/2025 2:10 PM EDT Appointment [facility] [address] [address] 04/02/2025 2:10 PM EDT Appointment [facility] [address] [phone] 04/03/2025 2:10 PM EDT Appointment [facility] [address] [address] 04/04/2025 2:10 PM EDT Appointment [facility] [address] [address] 04/05/2025 2:10 PM EDT Appointment [facility] [address] [address] 04/08/2025 2:10 PM EDT Appointment [facility] [address] [address] 04/09/2025 2:10 PM EDT Appointment [facility] [address] [address] 04/10/2025 2:10 PM EDT Appointment [facility] [address] [address] 04/11/2025 2:10 PM EDT Appointment [facility] [address] [address] 04/12/2025 2:10 PM EDT Appointment [facility] [address] [address] 04/15/2025 2:10 PM EDT Appointment [facility] [address] [address] 04/16/2025 2:10 PM EDT Appointment [facility] [address] 04/17/2025 2:10 PM EDT Appointment [facility] [address]0001 04/18/2025 2:10 PM EDT Appointment [facility] Rad[facility] [address] [place] [address] 04/19/2025 2:10 PM EDT Appointment [facility] [address] [place] [address] 04/22/2025 2:10 PM EDT Appointment [facility] [address] [place] [address] 04/23/2025 2:10 PM EDT Appointment [facility] [address] 04/24/2025 2:10 PM EDT Appointment [facility] Rad[facility] [address] [place] [address] documented as of this encounter Goals Goal Patient Goal Type Associated Problems Recent Progress Patient-Stated? Author Autogenerat ed Goal Care Plan Autogenerated Problem No PrestonLisa Jeovany documented as of this encounter Procedures Procedure Name Priority Date/Time Associated Diagnosis Comments RAD ONC ARIA SESSION SUMMARY Routine 03/26/2025 1:42 PM EDT documented in this encounter Results * Rad Onc Aria Session Summary (03/26/2025 1:42 PM EDT) Course ID C1 ARIA RADIATION ONCOLOGY Course Intent Curative w/chemo ARIA RADIATION ONCOLOGY Course Start Date 03/01/2025 8:45 AM ARIA RADIATION ONCOLOGY Course First Treatment Date 03/21/2025 2:04 PM ARIA RADIATION ONCOLOGY Course Last Treatment Date 03/26/2025 1:40 PM ARIA RADIATION ONCOLOGY Course Elapsed Days 5 ARIA RADIATION ONCOLOGY Reference Point ID Pelvis ARIA RADIATION ONCOLOGY Reference Point Dosage Given to Date [id number] Gy ARIA RADIATION ONCOLOGY Reference Point Session Dosage Given [id number] Gy ARIA RADIATION ONCOLOGY Plan ID [id number] ARIA RADIATION ONCOLOGY Plan Name Pelvis& inguinals_PT V50 ARIA RADIATION ONCOLOGY Plan Fractions Treated to Date 4 ARIA RADIATION ONCOLOGY Plan Total Fractions Prescribed 25 ARIA RADIATION ONCOLOGY Plan Prescribed Dose Per Fraction 2 Gy ARIA RADIATION ONCOLOGY Plan Total Prescribed Dose 5,000 CGy ARIA RADIATION ONCOLOGY Plan Primary Reference Point Pelvis ARIA RADIATION ONCOLOGY 03/26/2025 1:42 PM EDT Physician Radiation Oncology RADIATION ONCOLO [...] documented as of this encounter Care Teams Auditor Supervisor Relationship Specialty Start Date End Date Comfort Siddiqi APRN [address] [place] [address] PCP - General 03/12/25 Km Wooten MD [id number] [place] [address] Consulting Physician Radiation Oncology 02/14/25 documented as of this encounter
--- OUTSIDE RECORDS SUMMARY | 2025-03-29 09:06 | XMS_ITS | Encounter Summary ---
Author Organization [facility] Address [address] [place] [address] Care Team Providers Care Astrophysics Professor Name Role Phone Km Wooten MD Unavailable [phone] Comfort Siddiqi APRN Primary Care Provider [phone] Encounter Details Date Type Department Care Team (Latest Contact Info) Description 03/12/2025 Travel Social History Tobacco Use Types Packs/Day [...] Appointment [facility] [address] FK[address] [place] [address] 04/01/2025 2:10 PM EDT Appointment [facility] Radiation [address] [place] [address] 04/02/2025 2:10 PM EDT Appointment [facility] Radiation [address] [place] [address] 04/03/2025 2:10 PM EDT Appointment [facility] Rad[facility] [address] [address] 04/04/2025 2:10 PM EDT Appointment [facility] Rad[facility] [address] [address] 04/05/2025 2:10 PM EDT Appointment [facility] Radiation [address] [address] 04/08/2025 2:10 PM EDT Appointment [facility] Radiation [address] [address] 04/09/2025 2:10 PM EDT Appointment [facility] Rad[facility] [address] [address] 04/10/2025 2:10 PM EDT Appointment [facility] Radiation [address] [address] 04/11/2025 2:10 PM EDT Appointment [facility] Rad[facility] [address] [address] 04/12/2025 2:10 PM EDT Appointment [facility] Rad[facility] [address] [address] 04/15/2025 2:10 PM EDT Appointment [facility] Radiation [address] [address] 04/16/2025 2:10 PM EDT Appointment [facility] Radiation [address] [address] 04/17/2025 2:10 PM EDT Appointment [facility] Radiation [address] [address] 04/18/2025 2:10 PM EDT Appointment [facility] Radiation [address] [facility], [place] [address] 04/19/2025 2:10 PM EDT Appointment [facility] Radiation [address] [phone] 04/22/2025 2:10 PM EDT Appointment [facility] Radiation [address] [address] 04/23/2025 2:10 PM EDT Appointment [facility] Radiation [address] [phone] 04/24/2025 2:10 PM EDT Appointment [facility] Radiation [address] [address] documented as of this encounter [...] documented as of this encounter Care Teams Astrophysics Professor Relationship Specialty Start Date End Date Comfort Siddiqi APRN [address] [place] [address] PCP - General 03/12/25 Km Wooten MD [address] [place] [address] Consulting Physician Radiation Oncology 02/14/25 documented as of this encounter
--- OUTSIDE RECORDS SUMMARY | 2025-03-29 09:06 | XMS_ITS | Encounter Summary ---
Author Organization [facility] Address [address] [place] [address] Care Team Providers Care Wire Roller Name Role Phone Tejal Saeed APRN Primary Care Provider [phone] Km Wooten MD Unavailable [phone] Encounter Details Date Type Department Care [...] Appointment [facility] Radiation [address] [address] 04/01/2025 2:10 PM EDT Appointment [facility] Radiation [address] [address] 04/02/2025 2:10 PM EDT Appointment [facility] [address] [phone] 04/03/2025 2:10 PM EDT Appointment [facility] [address] [address] 04/04/2025 2:10 PM EDT Appointment [facility] [address] [address] 04/05/2025 2:10 PM EDT Appointment [facility] Radiation [address] [address] 04/08/2025 2:10 PM EDT Appointment [facility] [address] [phone] 04/09/2025 2:10 PM EDT Appointment [facility] Radiation [address] [address] 04/10/2025 2:10 PM EDT Appointment [facility] [address] [address] 04/11/2025 2:10 PM EDT Appointment [facility] Rad[facility] [address] [address] 04/12/2025 2:10 PM EDT Appointment [facility] Radiation [address] [address] 04/15/2025 2:10 PM EDT Appointment [facility] Radiation [address] [place] [address] 04/16/2025 2:10 PM EDT Appointment [facility] Radiation [address] [address] 04/17/2025 2:10 PM EDT Appointment [facility] Radiation [address] [address] 04/18/2025 2:10 PM EDT Appointment [facility] Radiation [address] [address] 04/19/2025 2:10 PM EDT Appointment [facility] Radiation [address] [place] [phone] 04/22/2025 2:10 PM EDT Appointment [facility] Radiation [address] [address] 04/23/2025 2:10 PM EDT Appointment [facility] Radiation [address] [address] 04/24/2025 2:10 PM EDT Appointment [facility] Radiation [address] [address] documented as of this encounter Goals Goal [...] documented as of this encounter Care Teams Wire Roller Relationship Specialty Start Date End Date Tejal Saeed APRN [address] [place] [address] PCP - General 11/07/20 03/11/25 Km Wooten MD [address] [facility] [address] [place] [address] Consulting Physician Radiation Oncology 02/14/25 documented as of this encounter
--- OUTSIDE RECORDS SUMMARY | 2025-03-29 09:06 | XMS_ITS ---
Author Organization [facility] Address [address] [place] [address] Care Team Providers Care Christian Science Healer Name Role Phone Km Wooten MD Unavailable [phone] Comfort Siddiqi APRN Primary Care Provider [phone] Active Problems Problem Noted Date Diagnosed Date Class III obesity with body mass index (BMI) of 40.0 or higher 03/21/2025 Malignant neoplasm of rectum 2025 Cancer Staging:Clinical:Stage IIIB(cT3, cN2a, cM0) - Unsigned Current Treatment and Therapy Plans No current plan information found. Past Treatment and Therapy Plans No past plan information found. Current Radiation Episodes * Radiation Therapy: Bilateral RectumOverview* First Treatment Date Latest Treatment Date Treatment Site Technique Goal Episode Provider 03/21/2025 03/28/2025 Bilateral Rectum Consolidative * Linked Problems Rectal cancer Treatment Courses* Course C1 03/21/2025 - 03/28/2025 Treatment Period Fraction Dose Fractions Total Dose Plans Planned Pelvis& inguinals_PTV50 [A1A8] 03/21/2025 - 03/28/2025 200 cGy 5,000 cG y Reference Points Delivered Pelvis 03/21/2025 - 03/28/2025 1,200 cGy
--- OUTSIDE RECORDS SUMMARY | 2025-03-29 09:06 | XMS_ITS | Encounter Summary ---
Author Organization [facility] Address [address] [place] [address] Care Team Providers Care Gasoline Catalyst Operator Name Role Phone Km Wooten MD Unavailable [phone] Comfort Siddiqi APRN Primary Care Provider [phone] Encounter Details Date Type Department Care Team (Latest Contact Info) Description 03/15/2025 Travel Social History Tobacco Use Types Packs/Day [...] Appointment [facility] Radiation [address] YS[address]F [place] [address] 04/01/2025 2:10 PM EDT Appointment [facility] Radiation [address] [place] [address] 04/02/2025 2:10 PM EDT Appointment [facility] Radiation [address] [place] [address] 04/03/2025 2:10 PM EDT Appointment [facility] Radiation [address] [address] 04/04/2025 2:10 PM EDT Appointment [facility] Radiation [address] [address] 04/05/2025 2:10 PM EDT Appointment [facility] Radiation [address] [address] 04/08/2025 2:10 PM EDT Appointment [facility] Radiation [address] [address] 04/09/2025 2:10 PM EDT Appointment [facility] Radiation [address] [address] 04/10/2025 2:10 PM EDT Appointment [facility] Radiation [address] [address] 04/11/2025 2:10 PM EDT Appointment [facility] Radiation [address] [address] 04/12/2025 2:10 PM EDT Appointment [facility] Radiation [address] [address] 04/15/2025 2:10 PM EDT Appointment [facility] Radiation [address] [address] 04/16/2025 2:10 PM EDT Appointment [facility] Radiation [address] [address] 04/17/2025 2:10 PM EDT Appointment [facility] Radiation [address] [address] 04/18/2025 2:10 PM EDT Appointment [facility] CC Radiation [address] [facility] [address] 04/19/2025 2:10 PM EDT Appointment [facility] Radiation [address] [phone] 04/22/2025 2:10 PM EDT Appointment [facility] Radiation [address] [phone] 04/23/2025 2:10 PM EDT Appointment [facility] Radiation [address] [phone] 04/24/2025 2:10 PM EDT Appointment [facility] Radiation [address] [address] documented as of this encounter [...] documented as of this encounter Care Teams Gasoline Catalyst Operator Relationship Specialty Start Date End Date Comfort Siddiqi APRN [address] [place] [address] PCP - General 03/12/25 Km Wooten MD [address] [place] [address] Consulting Physician Radiation Oncology 02/14/25 documented as of this encounter
--- OUTSIDE RECORDS SUMMARY | 2025-03-29 09:06 | XMS_ITS | Encounter Summary ---
Author Organization [facility] Address [address] [place] [address] Care Team Providers Care Lehr Stripper Name Role Phone Tejal Saeed APRN Primary Care Provider [phone] Km Wooten MD Unavailable [phone] Encounter Details Date Type Department Care Team (Latest Contact Info) Description 03/11/2025 Travel Social History Tobacco Use Types Packs/Day [...] Appointment [facility] Radiation [address] [id number] [place] [address] 04/01/2025 2:10 PM EDT Appointment [facility] CC Radiation [address] [address] 04/02/2025 2:10 PM EDT Appointment [facility] Radiation [address] [address] 04/03/2025 2:10 PM EDT Appointment [facility] Radiation [address] [address] 04/04/2025 2:10 PM EDT Appointment [facility] Radiation [address] [phone] 04/05/2025 2:10 PM EDT Appointment [facility] Radiation [address] [address] 04/08/2025 2:10 PM EDT Appointment P[facility] CC Radiation [address] [address] 04/09/2025 2:10 PM EDT Appointment [facility] CC Radiation [address] [address] 04/10/2025 2:10 PM EDT Appointment [facility] CC Radiation [address] [address] 04/11/2025 2:10 PM EDT Appointment [facility] CC Radiation [address] [address] 04/12/2025 2:10 PM EDT Appointment [facility] CC Radiation [address] [address] 04/15/2025 2:10 PM EDT Appointment [facility] CC Radiation [address] [address] 04/16/2025 2:10 PM EDT Appointment P[facility] CC Radiation [address] [address] 04/17/2025 2:10 PM EDT Appointment [facility] CC Radiation [address] [address] 04/18/2025 2:10 PM EDT Appointment [facility] Radiation [address] EA[address]N [place] [address] 04/19/2025 2:10 PM EDT Appointment [facility] Radiation [address] LR[address]V [place] [address] 04/22/2025 2:10 PM EDT Appointment [facility] Radiation [address] TV[address]W [place] [address] 04/23/2025 2:10 PM EDT Appointment [facility] Radiation [address] KC108O [place] [address] 04/24/2025 2:10 PM EDT Appointment [facility] Radiation [address] [address] documented as of this encounter Goals Goal [...] documented as of this encounter Care Teams Lehr Stripper Relationship Specialty Start Date End Date Tejal Saeed APRN [address] [place] [address] PCP - General 11/07/20 03/11/25 Km Wooten MD [address] [place] [address] Consulting Physician Radiation Oncology 02/14/25 documented as of this encounter
--- OUTSIDE RECORDS SUMMARY | 2025-03-29 09:06 | XMS_ITS | Encounter Summary ---
Author Organization [facility] Address [address] [place] [address] Care Team Providers Care Warp Tying Machine Tender Name Role Phone Tejal Saeed APRN Primary Care Provider [phone] Km Wooten MD Unavailable [phone] Comfort Siddiqi APRN Primary Care Provider [phone] Encounter Details Date Type Department Care Team (Late st Contact Info) Description 01/08/2025 Orders Only External Location [address] [place] [address] Provider, External Social History Tobacco [...] PM EDT Appointment [facility] Radiation [address] [address] 04/01/2025 2:10 PM EDT Appointment [facility] Radiation [address] [address] 04/02/2025 2:10 PM EDT Appointment [facility] Radiation [address] [address] 04/03/2025 2:10 PM EDT Appointment [facility] CC Radiation [address] [address] 04/04/2025 2:10 PM EDT Appointment [facility] CC Radiation [address] [address] 04/05/2025 2:10 PM EDT Appointment [facility] CC Radiation [address] [address] 04/08/2025 2:10 PM EDT Appointment [facility] CC Radiation [address] [address] 04/09/2025 2:10 PM EDT Appointment [facility] CC Radiation [address] [address] 04/10/2025 2:10 PM EDT Appointment [facility] CC Radiation [address] [address] 04/11/2025 2:10 PM EDT Appointment [facility] Radiation [address] [address] 04/12/2025 2:10 PM EDT Appointment [facility] CC Radiation [address] [address] 04/15/2025 2:10 PM EDT Appointment [facility] CC Radiation [address] [address] 04/16/2025 2:10 PM EDT Appointment P[facility] CC Radiation [address] [address] 04/17/2025 2:10 PM EDT Appointment [facility] CC Radiation [address] [address] 04/18/2025 2:10 PM EDT Appointment [facility] CC Radiation [address] [address] 04/19/2025 2:10 PM EDT Appointment [facility] CC Radiation [address] [address] 04/22/2025 2:10 PM EDT Appointment P[facility] CC Radiation [address] [place] [address] 04/23/2025 2:10 PM EDT Appointment [facility] Radiation [address] [id number] [place] [address] 04/24/2025 2:10 PM EDT Appointment PAV CC Radiation 800 [facility] RC[address] [place] [address] documented as of this encounter Procedures Procedure [...] on filedocumented in this encounter Care Teams Warp Tying Machine Tender Relationship Specialty Start Date End Date Tejal Saeed APRN [address] [place] [address] PCP - General 11/07/20 03/11/25 Comfort Siddiqi APRN [address] [place] [address] PCP - General 03/12/25 Km Wooten MD 800 [facility] [address] [place] [address] Consulting Physician Radiation Oncology 02/14/25 documented as of this encounter
--- OUTSIDE RECORDS SUMMARY | 2025-03-29 09:06 | XMS_ITS | Encounter Summary ---
Author Organization [facility] Address [address] [place] [id number] Care Team Providers Care Gas Meter Installer Helper Name Role Phone Tejal Saeed APRN Primary Care Provider [phone] Km Wooten MD Unavailable [phone] Encounter Details Date Type Department Care Team (Late st Contact Info) Description 02/20/2025 Telephone [facility] [address] [place] [address] [place] [address] Social History Tobacco Use Types Packs/Day Years [...] Appointment P[facility] CC Radiation [address] [phone] 04/01/2025 2:10 PM EDT Appointment P[facility] CC Radiation [address] [address] 04/02/2025 2:10 PM EDT Appointment P[facility] CC Radiation [address] [address] 04/03/2025 2:10 PM EDT Appointment P[facility] CC Radiation [address] [phone] 04/04/2025 2:10 PM EDT Appointment P[facility] CC Radiation [address] [address] 04/05/2025 2:10 PM EDT Appointment P[facility] CC Radiation [address] [address] 04/08/2025 2:10 PM EDT Appointment P[facility] CC Radiation [address] [address] 04/09/2025 2:10 PM EDT Appointment P[facility] CC Radiation [address] [address] 04/10/2025 2:10 PM EDT Appointment P[facility] CC Radiation [address] [phone] 04/11/2025 2:10 PM EDT Appointment P[facility] CC Radiation [address] [address] 04/12/2025 2:10 PM EDT Appointment P[facility] CC Radiation [address] [address] 04/15/2025 2:10 PM EDT Appointment P[facility] CC Radiation [address] [address] 04/16/2025 2:10 PM EDT Appointment P[facility] CC Radiation [address] [place] [address] 04/17/2025 2:10 PM EDT Appointment [facility] CC Radiation [address] [address] 04/18/2025 2:10 PM EDT Appointment P[facility] CC Radiation [address] [address] 04/19/2025 2:10 PM EDT Appointment P[facility] CC Radiation [id number] [place] [address] 04/22/2025 2:10 PM EDT Appointment P[facility] CC Radiation [address] [address] 04/23/2025 2:10 PM EDT Appointment P[facility] CC Radiation [address] [address] 04/24/2025 2:10 PM EDT Appointment P[facility] CC Radiation [address] [address] documented as of this encounter Visit Diagnoses [...] as of this encounter Care Teams Gas Meter Installer Helper Relationship Specialty Start Date End Date Tejal Saeed APRN [address] [place] [address] PCP - General 11/07/20 03/11/25 Km Wooten MD [address] [facility] [address] [place] [address] Consulting Physician Radiation Oncology 02/14/25 documented as of this encounter
--- OUTSIDE RECORDS SUMMARY | 2025-03-29 09:07 | XMS_ITS | Encounter Summary ---
Author Organization Healthcare Address [address] [place] [address] Care Team Providers Care Marine Fitter Name Role Phone Km Wooten MD Unavailable [phone] Comfort Siddiqi APRN Primary Care Provider [phone] Encounter Details Date Type Department Care Team (Late st Contact Info) Description 03/21/2025 Orders Only [facility] Radiation [id number] [place] [address] Radiation Oncology, Physician, [address] [place], [place] [id number] Social History Tobacco Use Types Packs/Day Years [...] Appointment [facility] Radiation [address] [address] 04/01/2025 2:10 PM EDT Appointment [facility] Radiation [address] [address] 04/02/2025 2:10 PM EDT Appointment [facility] Radiation [address] [address] 04/03/2025 2:10 PM EDT Appointment [facility] Radiation [address] [address] 04/04/2025 2:10 PM EDT Appointment [facility] Radiation [address] [address] 04/05/2025 2:10 PM EDT Appointment [facility] Radiation [address] [address] 04/08/2025 2:10 PM EDT Appointment [facility] Radiation [address] [phone] 04/09/2025 2:10 PM EDT Appointment [facility] Radiation [address] [address] 04/10/2025 2:10 PM EDT Appointment [facility] Radiation [address] [address] 04/11/2025 2:10 PM EDT Appointment [facility] Radiation [address] [phone] 04/12/2025 2:10 PM EDT Appointment [facility] Radiation [address] [address] 04/15/2025 2:10 PM EDT Appointment [facility] Radiation [address] [phone] 04/16/2025 2:10 PM EDT Appointment [facility] Radiation [address] 04/17/2025 2:10 PM EDT Appointment [facility] Radiation [address] 04/18/2025 2:10 PM EDT Appointment [facility] Radiation [address] [place] [address] 04/19/2025 2:10 PM EDT Appointment [facility] Radiation [address] [place] [address] 04/22/2025 2:10 PM EDT Appointment [facility] Radiation [address] [place] [address] 04/23/2025 2:10 PM EDT Appointment [facility] Radiation [address] 04/24/2025 2:10 PM EDT Appointment [facility] Radiation [address] [place] [address] documented as of this encounter Goals Goal Patient Goal Type Associated Problems Recent Progress Patient-Stated? Author Autogenerat ed Goal Care Plan Autogenerated Problem No PrestonLisa Jeovany documented as of this encounter Procedures Procedure Name Priority Date/Time Associated Diagnosis Comments RAD ONC ARIA SESSION SUMMARY Routine 03/21/2025 2:11 PM EDT documented in this encounter Results * Rad Onc Aria Session Summary (03/21/2025 2:11 PM EDT) Course ID C1 ARIA RADIATION ONCOLOGY Course Intent Curative w/chemo ARIA RADIATION ONCOLOGY Course Start Date 03/01/2025 8:45 AM ARIA RADIATION ONCOLOGY Course First Treatment Date 03/21/2025 2:04 PM ARIA RADIATION ONCOLOGY Course Last Treatment Date 03/21/2025 2:10 PM ARIA RADIATION ONCOLOGY Course Elapsed Days 0 ARIA RADIATION ONCOLOGY Reference Point ID Pelvis ARIA RADIATION ONCOLOGY Reference Point Dosage Given to Date [id number] Gy ARIA RADIATION ONCOLOGY Reference Point Session Dosage Given [id number] Gy ARIA RADIATION ONCOLOGY Plan ID [id number] ARIA RADIATION ONCOLOGY Plan Name Pelvis& inguinals_PT V50 ARIA RADIATION ONCOLOGY Plan Fractions Treated to Date 1 ARIA RADIATION ONCOLOGY Plan Total Fractions Prescribed 25 ARIA RADIATION ONCOLOGY Plan Prescribed Dose Per Fraction 2 Gy ARIA RADIATION ONCOLOGY Plan Total Prescribed Dose 5,000 CGy ARIA RADIATION ONCOLOGY Plan Primary Reference Point Pelvis ARIA RADIATION ONCOLOGY 03/21/2025 2:11 PM EDT Physician Radiation Oncology RADIATION ONCOLO [...] documented as of this encounter Care Teams Marine Fitter Relationship Specialty Start Date End Date Comfort Siddiqi APRN [address] [place] [address] PCP - General 03/12/25 Km Wooten MD [id number] [place] [address] Consulting Physician Radiation Oncology 02/14/25 documented as of this encounter
--- OUTSIDE RECORDS SUMMARY | 2025-03-29 09:07 | XMS_ITS | Encounter Summary ---
Author Organization [facility] Address [address] [place] [id number] Care Team Providers Care Finger Lift Operator Name Role Phone Tejal Saeed APRN Primary Care Provider [phone] Km Wooten MD Unavailable [phone] Comfort Siddiqi APRN Primary Care Provider [phone] Encounter Details Date Type Department Care Team (Late st Contact Info) Description 02/08/2025 Lab Requisition [facility] H Lab [address] [place] [address] Con Sumner MD [address] [facility] [address] [place] [phone] Hemorrhage of anus and rectum Social History [...] [facility] CC Radiation [address] [address] 04/01/2025 2:10 PM EDT Appointment [facility] CC Radiation [address] [address] 04/02/2025 2:10 PM EDT Appointment [facility] CC Radiation [address] [address] 04/03/2025 2:10 PM EDT Appointment [facility] CC Radiation [address] [address] 04/04/2025 2:10 PM EDT Appointment [facility] CC Radiation [address] [address] 04/05/2025 2:10 PM EDT Appointment [facility] CC Radiation [address] [address] 04/08/2025 2:10 PM EDT Appointment [facility] CC Radiation [address] [address] 04/09/2025 2:10 PM EDT Appointment [facility] CC Radiation [address] [address] 04/10/2025 2:10 PM EDT Appointment [facility] CC Radiation [address] [address] 04/11/2025 2:10 PM EDT Appointment [facility] CC Radiation [address] [address] 04/12/2025 2:10 PM EDT Appointment [facility] CC Radiation [address] [address] 04/15/2025 2:10 PM EDT Appointment [facility] CC Radiation [address] [address] 04/16/2025 2:10 PM EDT Appointment [facility] CC Radiation [address] [address] 04/17/2025 2:10 PM EDT Appointment [facility] CC Radiation [address] [place] [address] 04/18/2025 2:10 PM EDT Appointment [facility] CC Radiation [address] [place] [address] 04/19/2025 2:10 PM EDT Appointment [facility] CC Radiation [address] [place] [address] 04/22/2025 2:10 PM EDT Appointment [facility] CC Radiation [address] [place] [address] 04/23/2025 2:10 PM EDT Appointment [facility] CC Radiation [address] [place] [address] 04/24/2025 2:10 PM EDT Appointment [facility] CC Radiation [address] [place] [address] documented as of this encounter Procedures Procedure Name Priority Date/Time Associated Diagnosis Comments SURGICAL PATHOLOGY CONSULT Routine 02/08/2025 11:05 AM EDT Hemorrhage of anus and rectum documented in this encounter Results * Surgical Pathology Consult (02/08/2025 11:05 AM EDT) Case Report Sugical Pathology Consult Case: [id number] Authorizing Provider: Con Sumner MD Collected: 02/08/20251104 Ordering Location: [facility] Lab Received: 02/08/2025 110 Pathologist: Luis Weiner DO Specimen: Colon, [id number] 02/10/2025 12:09 PM EDT [facility] Final Diagnosis DESIGNATED COLON, RECTUM; MASS, BIOPSY (OUTSIDE SLIDES; [id number]; 02/05/2025): - MODERATELY DIFFERENTIATED ADENOCARCINOMA (SEE COMMENT). - MMR BY IHC (PER REPORT): - RETAINED NUCLEAR EXPRESSION OF ALL FOUR PROTEINS (MLH1, PMS2, MSH2 AND MSH6). 02/10/2025 12:09 PM EDT [facility] at 1209 EDT Comment Correlation with endoscopic findings and imaging is recommended to determine site of tumor (colon vs rectum) given specimen designation. 02/10/2025 12:09 PM EDT [facility] Clinical Information K62.5 - Hemorrhage of anus and rectum [ICD-10-CM] 02/10/2025 12:09 PM EDT [facility] Gross Description A. [id number] Received along with a corresponding pathology report from [facility]ology [facility] Cytology Laboratory are 5 slide(s) labeled outside case: [id number] collected on 01/31/2025. 02/10/2025 12:09 PM EDT [facility] Note: A resident was involved in the service. I attest I examined the relevant preparations for the specimens and confirmed the diagnosis or interpretation. 02/10/2025 12:09 PM EDT [facility] Tissue Colon structure / Unknown 02/08/2025 11:05 AM EDT 02/08/2025 11:05 AM EDT us Con Sumner MD LAB PATHOLOGY ORDERABLES Final Result [facility] [address] [place] [address] documented in this encounter Visit Diagnoses Diagnosis [...] documented as of this encounter Care Teams Finger Lift Operator Relationship Specialty Start Date End Date Tejal Saeed APRN [address] [place] [address] PCP - General 11/07/20 03/11/25 Comfort Siddiqi APRN [address] [place] [address] PCP - General 03/12/25 Km Wooten MD [address] [address] Consulting Physician Radiation Oncology 02/14/25 documented as of this encounter
--- OUTSIDE RECORDS SUMMARY | 2025-03-29 09:07 | XMS_ITS | Encounter Summary ---
Author Organization Healthcare Address [address] [place] [address] Care Team Providers Care Can Piler Name Role Phone Tejal Saeed APRN Primary Care Provider [phone] Km Wooten MD Unavailable [phone] Encounter Details Date Type Department Care Team (Late Contact Info) Description 02/14/2025 Orders Only [facility] Multidisciplinary Oncology Clinic [address] [place] [address] Con Sumner MD [address] [facility] [address] [place] [address] Social History Tobacco Use Types [...] PM EDT Appointment [facility] CC Radiation 800 [facility] [address] [place] [address] 04/01/2025 2:10 PM EDT Appointment [facility] CC Radiation [address] [place] [address] 04/02/2025 2:10 PM EDT Appointment [facility] CC Radiation [address] [place] [address] 04/03/2025 2:10 PM EDT Appointment [facility] CC Radiation [address] [phone] 04/04/2025 2:10 PM EDT Appointment [facility] CC Radiation [address] [address] 04/05/2025 2:10 PM EDT Appointment [facility] CC Radiation [address] [address] 04/08/2025 2:10 PM EDT Appointment [facility] CC Radiation [address] [phone] 04/09/2025 2:10 PM EDT Appointment [facility] CC Radiation [address] [address] 04/10/2025 2:10 PM EDT Appointment [facility] CC Radiation [address] [address] 04/11/2025 2:10 PM EDT Appointment [facility] CC Radiation [address] [address] 04/12/2025 2:10 PM EDT Appointment [facility] CC Radiation [address] [address] 04/15/2025 2:10 PM EDT Appointment [facility] CC Radiation [address] [address] 04/16/2025 2:10 PM EDT Appointment [facility] CC Radiation [address] [address] 04/17/2025 2:10 PM EDT Appointment [facility] CC Radiation [address] [address] 04/18/2025 2:10 PM EDT Appointment [facility] CC Radiation [address] [place] [address] 04/19/2025 2:10 PM EDT Appointment [facility] CC Radiation [address] [place] [address] 04/22/2025 2:10 PM EDT Appointment [facility] CC Radiation [address] [place] [address] 04/23/2025 2:10 PM EDT Appointment [facility] CC Radiation [address] OS[address] [place] [address] 04/24/2025 2:10 PM EDT Appointment [facility] CC Radiation [address] [place], [place] [address] documented as of this encounter Visit Diagnoses [...] documented as of this encounter Care Teams Can Piler Relationship Specialty Start Date End Date Tejal Saeed APRN [address] [place] [address] PCP - General 11/07/20 03/11/25 Km Wooten MD [address] [facility] [address] [place] [address] Consulting Physician Radiation Oncology 02/14/25 documented as of this encounter
--- OUTSIDE RECORDS SUMMARY | 2025-03-29 09:07 | XMS_ITS | Encounter Summary ---
Author Organization [facility] Address [address] [place] [address] Care Team Providers Care Debt And Budget Counselor Name Role Phone Tejal Saeed APRN Primary Care Provider [phone] Km Wooten MD Unavailable [phone] Reason for Referral * Consultation (Urgent) - Closed Specialty Diagnoses / Procedures Referred By Contwagner maria Referred To Contact Urology Diagnoses Elevated PSA Km Wooten MD [address] [place] [address] Phone: tel: fax: [facility] [address] [place] [address] Phone: tel: fax: Referral ID Status Reason Start Date Expiration Date V isits Requested Visits Authorized [id number] Closed Specialty Services Required 02/18/2025 08/20/2026 1 1 Scheduling Instructions History of elevated PSA of 8.7, concern for ? Prostate cancer in a gentleman with newly diagnosed rectal cancer Encounter Details Date Type Department Care Team (Late st Contact Info) Description 02/18/2025 Orders Only [facility] CC Radiation [address] [place] [address] Km Wooten MD [address] [place] [address] Elevated PSA (Primary Dx) Social History Tobacco [...] EDT Appointment [facility] CC Radiation [address] [address] 04/01/2025 2:10 PM EDT Appointment [facility] CC Radiation [address] [address] 04/02/2025 2:10 PM EDT Appointment [facility] CC Radiation [address] [address] 04/03/2025 2:10 PM EDT Appointment [facility] CC Radiation [address] [address] 04/04/2025 2:10 PM EDT Appointment [facility] CC Radiation [address] [address] 04/05/2025 2:10 PM EDT Appointment [facility] CC Radiation [address] [address] 04/08/2025 2:10 PM EDT Appointment [facility] CC Radiation [address] [address] 04/09/2025 2:10 PM EDT Appointment [facility] CC Radiation [address] [phone] 04/10/2025 2:10 PM EDT Appointment P[facility] CC Radiation [address] [address] 04/11/2025 2:10 PM EDT Appointment [facility] CC Radiation [address] [address] 04/12/2025 2:10 PM EDT Appointment [facility] CC Radiation [address] [address] 04/15/2025 2:10 PM EDT Appointment [facility] CC Radiation [address] [address] 04/16/2025 2:10 PM EDT Appointment [facility] CC Radiation [address] [address] 04/17/2025 2:10 PM EDT Appointment [facility] CC Radiation [address] [address] 04/18/2025 2:10 PM EDT Appointment [facility] CC Radiation [address] [address] 04/19/2025 2:10 PM EDT Appointment [facility] CC Radiation [address] [phone] 04/22/2025 2:10 PM EDT Appointment [facility] CC Radiation [address] [address] 04/23/2025 2:10 PM EDT Appointment [facility] CC Radiation [address] [address] 04/24/2025 2:10 PM EDT Appointment [facility] CC Radiation [address] [address] Scheduled Referrals Name Type Priority Associated Diagnoses [...] documented as of this encounter Care Teams Debt And Budget Counselor Relationship Specialty Start Date End Date Tejal Saeed APRN [address] [place] [address] PCP - General 11/07/20 03/11/25 Km Wooten MD [address] [facility] [address] [place] [address] Consulting Physician Radiation Oncology 02/14/25 documented as of this encounter
--- OUTSIDE RECORDS SUMMARY | 2025-03-29 09:07 | XMS_ITS | Encounter Summary ---
Author Organization [facility] Address [address] [id number] Care Team Providers Care Scientific Recruiter Name Role Phone Tejal Saeed APRN Primary Care Provider [phone] Km Wooten MD Unavailable [phone] Reason for Referral * Consultation (Routine) - Closed Specialty Diagnoses / Procedures Referred By Contac t Referred To Contact Radiation Oncology Diagnoses Malignant neoplasm of rectum (CMS/HCC) Con Sumner MD [address] [address] Phone: tel: fax: [facility] CC Radiation [address] [place] [address] Phone: tel: fax: Referral ID Status Reason Start Date Expiration Date V isits Requested Visits Authorized [id number] Closed Specialty Services Required 02/14/2025 08/16/2026 1 1 Scheduling Instructions Rectal cancer - needs total neoadjuvant therapy. Schedule radiation oncology at [facility] Scheduling medical oncology with Dr. Kaleb Bill at [facility]. * Consultation (Routine) - Authorized Specialty Diagnoses / Procedures Referred By Contac t Referred To Contact Medical Oncology Diagnoses Malignant neoplasm of rectum (CMS/HCC) Con Sumner MD [id number] [place] [address] Phone: tel: fax: Referral ID Status Reason Start Date Expiration Date Visits Requested Visits Authorized [id number] Authorized Specialty Services Required 02/14/2025 08/16/2026 1 1 Scheduling Instructions Rectal Cancer - needs total neoadjuvant therapy. Schedule medical oncology with Dr.Michael Bill at [facility] [phone]. Encounter Details Date Type Department Care Team (Latest Contact Info) Description 02/14/2025 Orders Only [facility]AV Multidisciplinary Oncology Clinic [address] [place] [address] Con Sumner MD [address] [address] Malignant neoplasm of rectum (CMS/HCC) [...] PM EDT Appointment PAV CC Radiation [address] [phone] 04/01/2025 2:10 PM EDT Appointment PAV CC Radiation [address] [phone] 04/02/2025 2:10 PM EDT Appointment PAV CC Radiation [address] [address] 04/03/2025 2:10 PM EDT Appointment PAV CC Radiation [address] [address] 04/04/2025 2:10 PM EDT Appointment PAV CC Radiation [address] [address] 04/05/2025 2:10 PM EDT Appointment PAV CC Radiation [address] [address] 04/08/2025 2:10 PM EDT Appointment PAV CC Radiation [address] [address] 04/09/2025 2:10 PM EDT Appointment PAV CC Radiation [address] [address] 04/10/2025 2:10 PM EDT Appointment PAV CC Radiation [address] [address] 04/11/2025 2:10 PM EDT Appointment PAV CC Radiation [address] [address] 04/12/2025 2:10 PM EDT Appointment PAV CC Radiation [address] [address] 04/15/2025 2:10 PM EDT Appointment PAV CC Radiation [address] [address] 04/16/2025 2:10 PM EDT Appointment PAV CC Radiation [address] [address] 04/17/2025 2:10 PM EDT Appointment PAV CC Radiation [address] [address] 04/18/2025 2:10 PM EDT Appointment PAV CC Radiation [address] [address] 04/19/2025 2:10 PM EDT Appointment PAV CC Radiation [address] [address] 04/22/2025 2:10 PM EDT Appointment PAV CC Radiation [address] [place] [address] 04/23/2025 2:10 PM EDT Appointment PAV CC Radiation [address] [place] [address] 04/24/2025 2:10 PM EDT Appointment PAV CC Radiation [address] [place] [address] Scheduled Referrals Name Type Priority Associated Diagnoses [...] documented as of this encounter Care Teams Scientific Recruiter Relationship Specialty Start Date End Date Tejal Saeed APRN [address] [place] [address] PCP - General 11/07/20 03/11/25 Km Wooten MD 800 [facility] [address] [place] [address] Consulting Physician Radiation Oncology 02/14/25 documented as of this encounter
--- OUTSIDE RECORDS SUMMARY | 2025-03-29 09:07 | XMS_ITS | Encounter Summary ---
Author Organization [facility] Address [address] [place] [address] Care Team Providers Care Bill Collector Name Role Phone Km Wooten MD Unavailable [phone] Comfort Siddiqi APRN Primary Care Provider [phone] Encounter Details Date Type Department Care Team (Latest Contact Info) Description 03/18/2025 Travel Social History Tobacco Use Types Packs/Day [...] Appointment PAV CC Radiation [address] [place] [address] 04/01/2025 2:10 PM EDT Appointment PAV CC Radiation [address] [place] [address] 04/02/2025 2:10 PM EDT Appointment PAV CC Radiation [address] [place] [address] 04/03/2025 2:10 PM EDT Appointment PAV CC Radiation [address] [address] 04/04/2025 2:10 PM EDT Appointment PAV CC Radiation [address] [address] 04/05/2025 2:10 PM EDT Appointment PAV CC Radiation [address] [address] 04/08/2025 2:10 PM EDT Appointment PAV CC Radiation [address] [address] 04/09/2025 2:10 PM EDT Appointment PAV CC Radiation [address] [address] 04/10/2025 2:10 PM EDT Appointment PAV CC Radiation [address] [address] 04/11/2025 2:10 PM EDT Appointment PAV CC Radiation [address] [address] 04/12/2025 2:10 PM EDT Appointment PAV CC Radiation [address] [address] 04/15/2025 2:10 PM EDT Appointment PAV CC Radiation [address] [address] 04/16/2025 2:10 PM EDT Appointment PAV CC Radiation [address] [address] 04/17/2025 2:10 PM EDT Appointment PAV CC Radiation [address] [address] 04/18/2025 2:10 PM EDT Appointment PAV CC Radiation [address] [facility] [address] 04/19/2025 2:10 PM EDT Appointment PAV CC Radiation [address] [address] 04/22/2025 2:10 PM EDT Appointment PAV CC Radiation [address] [phone] 04/23/2025 2:10 PM EDT Appointment PAV CC Radiation [address] [phone] 04/24/2025 2:10 PM EDT Appointment PAV CC Radiation [address] [address] documented as of this encounter [...] documented as of this encounter Care Teams Bill Collector Relationship Specialty Start Date End Date Comfort Siddiqi APRN [address] [place] [address] PCP - General 03/12/25 Km Wooten MD [address] [place] [address] Consulting Physician Radiation Oncology 02/14/25 documented as of this encounter
--- OUTSIDE RECORDS SUMMARY | 2025-03-29 09:07 | XMS_ITS | Encounter Summary ---
Author Organization [facility] Address [address] [place] [address] Care Team Providers Care Efficiency Miner Name Role Phone Km Wooten MD Unavailable [phone] Comfort Siddiqi APRN Primary Care Provider [phone] Encounter Details Date Type Department Care Team (Latest Contact Info) Description 03/21/2025 Travel Social History Tobacco Use Types Packs/Day [...] Appointment [facility] [address] [id number] [place] [address] 04/01/2025 2:10 PM EDT Appointment [facility] [address] [place] [address] 04/02/2025 2:10 PM EDT Appointment [facility] [address] [place] [address] 04/03/2025 2:10 PM EDT Appointment [facility] [address] [address] 04/04/2025 2:10 PM EDT Appointment [facility] [address] [address] 04/05/2025 2:10 PM EDT Appointment [facility] [address] [address] 04/08/2025 2:10 PM EDT Appointment [facility] Radiation [address] [address] 04/09/2025 2:10 PM EDT Appointment [facility] [address] [address] 04/10/2025 2:10 PM EDT Appointment [facility] [address] [address] 04/11/2025 2:10 PM EDT Appointment [facility] [address] [address] 04/12/2025 2:10 PM EDT Appointment [facility] [address] [address] 04/15/2025 2:10 PM EDT Appointment [facility] [address] [address] 04/16/2025 2:10 PM EDT Appointment [facility] [address] [address] 04/17/2025 2:10 PM EDT Appointment [facility] [address] [address] 04/18/2025 2:10 PM EDT Appointment [facility] [address] [phone] 04/19/2025 2:10 PM EDT Appointment [facility] [address] [phone] 04/22/2025 2:10 PM EDT Appointment [facility] [address] [phone] 04/23/2025 2:10 PM EDT Appointment [facility] [address] [phone] 04/24/2025 2:10 PM EDT Appointment [facility] [address] [address] documented as of this encounter [...] documented as of this encounter Care Teams Efficiency Miner Relationship Specialty Start Date End Date Comfort Siddiqi APRN [address] [place] [address] PCP - General 03/12/25 Km Wooten MD [address] [place] [id number] Consulting Physician Radiation Oncology 02/14/25 documented as of this encounter
--- OUTSIDE RECORDS SUMMARY | 2025-03-29 09:07 | XMS_ITS | Encounter Summary ---
Author Organization [facility] Address [address] [place] [address] Care Team Providers Care Stone Dresser Name Role Phone Tejal Saeed APRN Primary Care Provider [phone] mK Wooten MD Unavailable [phone] Encounter Details Date Type Department Care [...] Appointment [facility] [address] [id number] [place] [address] 04/01/2025 2:10 PM EDT Appointment [facility] [address] [phone] 04/02/2025 2:10 PM EDT Appointment [facility] [address] [address] 04/03/2025 2:10 PM EDT Appointment [facility] [address] [address] 04/04/2025 2:10 PM EDT Appointment [facility] [address] [phone] 04/05/2025 2:10 PM EDT Appointment [facility] Radiation [address] [address] 04/08/2025 2:10 PM EDT Appointment [facility]iation [address] [address] 04/09/2025 2:10 PM EDT Appointment [facility] Radiation [address] [address] 04/10/2025 2:10 PM EDT Appointment [facility] Radiation [address] [address] 04/11/2025 2:10 PM EDT Appointment [facility] [address] [address] 04/12/2025 2:10 PM EDT Appointment [facility] [address] [address] 04/15/2025 2:10 PM EDT Appointment [facility] [address] [address] 04/16/2025 2:10 PM EDT Appointment [facility] [address] [address] 04/17/2025 2:10 PM EDT Appointment [facility] [address] [address] 04/18/2025 2:10 PM EDT Appointment [facility] [address] [id number] [place] [address] 04/19/2025 2:10 PM EDT Appointment [facility] [address] HE596N [place] [address] 04/22/2025 2:10 PM EDT Appointment [facility] [address] [id number] [place] [address] 04/23/2025 2:10 PM EDT Appointment [facility] [address] [id number] [place] [address] 04/24/2025 2:10 PM EDT Appointment [facility] [address] [phone] documented as of this encounter Goals Goal [...] documented as of this encounter Care Teams Stone Dresser Relationship Specialty Start Date End Date Tejal Saeed APRN [address] [place] [address] PCP - General 11/07/20 03/11/25 Km Wooten MD [address] [place] [address] Consulting Physician Radiation Oncology 02/14/25 documented as of this encounter
--- OUTSIDE RECORDS SUMMARY | 2025-03-29 09:07 | XMS_ITS | Encounter Summary ---
Author Organization [facility] Address [address] [id number] Care Team Providers Care Insulation And Flooring Assembler Name Role Phone Tejal Saeed APRN Primary Care Provider [phone] Encounter Details Date Type Department Care Team [...] Sugar Zavaleta documented as of this encounter Plan of Treatment Upcoming Encounters Date Type Department Care Team (Late st Contact Info) Description 03/29/2025 2:10 PM EDT Appointment [facility] [address] [phone] 04/01/2025 2:10 PM EDT Appointment [facility] [address] [phone] 04/02/2025 2:10 PM EDT Appointment [facility] [address] [phone] 04/03/2025 2:10 PM EDT Appointment [facility] [address] [phone] 04/04/2025 2:10 PM EDT Appointment [facility] Radiation [address] [place] [address] 04/05/2025 2:10 PM EDT Appointment [facility] Radiation [address] [place] [address] 04/08/2025 2:10 PM EDT Appointment [facility] Radiation [address] [address] 04/09/2025 2:10 PM EDT Appointment [facility] Radiation [address] [phone] 04/10/2025 2:10 PM EDT Appointment [facility] Radiation [address] [address] 04/11/2025 2:10 PM EDT Appointment [facility]iation [address] [phone] 04/12/2025 2:10 PM EDT Appointment [facility]iation [address] [address] 04/15/2025 2:10 PM EDT Appointment [facility] Radiation [address] [address] 04/16/2025 2:10 PM EDT Appointment [facility]iation [address] [address] 04/17/2025 2:10 PM EDT Appointment [facility] Radiation [address] [phone] 04/18/2025 2:10 PM EDT Appointment [facility] Radiation [address] [address] 04/19/2025 2:10 PM EDT Appointment [facility] Radiation [address] [address] 04/22/2025 2:10 PM EDT Appointment [facility] Radiation [address] [address] 04/23/2025 2:10 PM EDT Appointment [facility] [address] [id number] [place] [address] 04/24/2025 2:10 PM EDT Appointment [facility] [address] [id number] [place] [address] documented as of this encounter Visit Diagnoses [...] documented as of this encounter Care Teams Insulation And Flooring Assembler Relationship Specialty Start Date End Date Tejal Saeed APRN [address] [place] [address] PCP - General 11/07/20 03/11/25 documented as of this encounter
--- OUTSIDE RECORDS SUMMARY | 2025-03-29 09:07 | XMS_ITS | Encounter Summary ---
Author Organization [facility] Address [address] [place] [address] Care Team Providers Care Take Up Supervisor Name Role Phone Tejal Saeed APRN Primary Care Provider [phone] Encounter Details Date Type Department Care Team [...] Appointment [facility] [address] [id number] [place] [address] 04/01/2025 2:10 PM EDT Appointment [facility] [address] [phone] 04/02/2025 2:10 PM EDT Appointment [facility] [address] [address] 04/03/2025 2:10 PM EDT Appointment [facility] Radiation [address] [address] 04/04/2025 2:10 PM EDT Appointment [facility] Radiation [address] [address] 04/05/2025 2:10 PM EDT Appointment [facility] Radiation [address] [address] 04/08/2025 2:10 PM EDT Appointment [facility] Radiation [address] [address] 04/09/2025 2:10 PM EDT Appointment [facility] Radiation [address] [address] 04/10/2025 2:10 PM EDT Appointment [facility] Radiation [address] [address] 04/11/2025 2:10 PM EDT Appointment [facility] Radiation [address] [address] 04/12/2025 2:10 PM EDT Appointment [facility] Radiation [address] [address] 04/15/2025 2:10 PM EDT Appointment [facility] Radiation [address] [address] 04/16/2025 2:10 PM EDT Appointment [facility] Radiation [address] [address] 04/17/2025 2:10 PM EDT Appointment [facility] Radiation [address] [address] 04/18/2025 2:10 PM EDT Appointment [facility] Radiation [address] [address] 04/19/2025 2:10 PM EDT Appointment [facility] Radiation [address] [address] 04/22/2025 2:10 PM EDT Appointment [facility] Radiation [address] [address] 04/23/2025 2:10 PM EDT Appointment [facility] [address] [address] 04/24/2025 2:10 PM EDT Appointment [facility] Radiation [address] [address] documented as of this encounter Visit Diagnoses [...] documented as of this encounter Care Teams Take Up Supervisor Relationship Specialty Start Date End Date Tejal Saeed APRN [facility] [place] [address] PCP - General 11/07/20 03/11/25 documented as of this encounter
--- OUTSIDE RECORDS SUMMARY | 2025-03-29 09:07 | XMS_ITS | Encounter Summary ---
Author Organization [facility] Address [address] [id number] Care Team Providers Care Plant Physiology Teacher Name Role Phone Tejal Saeed APRN Primary Care Provider [phone] Km Wooten MD Unavailable [phone] Encounter Details Date Type Department Care Team (Late st Contact Info) Description 02/14/2025 Telephone [facility] Radiation [address] [facility] [id number] [place] [address] Km Wooten MD [address] [place] [address] Social History Tobacco Use Types [...] [facility] Radiation [address] [phone] 04/01/2025 2:10 PM EDT Appointment [facility] Radiation [address] [address] 04/02/2025 2:10 PM EDT Appointment [facility] Radiation [address] [address] 04/03/2025 2:10 PM EDT Appointment [facility] Radiation [address] [phone] 04/04/2025 2:10 PM EDT Appointment [facility] Radiation [address] [phone] 04/05/2025 2:10 PM EDT Appointment [facility] Radiation [address] [address] 04/08/2025 2:10 PM EDT Appointment [facility] Radiation [address] [address] 04/09/2025 2:10 PM EDT Appointment [facility] Radiation [address] [address] 04/10/2025 2:10 PM EDT Appointment [facility] Radiation [address] [phone] 04/11/2025 2:10 PM EDT Appointment [facility] Radiation [address] [address] 04/12/2025 2:10 PM EDT Appointment [facility] Radiation [address] [phone] 04/15/2025 2:10 PM EDT Appointment [facility] Radiation [address] [address] 04/16/2025 2:10 PM EDT Appointment [facility] Radiation [address] [phone] 04/17/2025 2:10 PM EDT Appointment [facility] Radiation [address] [address] 04/18/2025 2:10 PM EDT Appointment [facility] Radiation [address] [address] 04/19/2025 2:10 PM EDT Appointment [facility] Radiation [address] [address] 04/22/2025 2:10 PM EDT Appointment [facility] Radiation [address] [address] 04/23/2025 2:10 PM EDT Appointment [facility] Radiation [address] [address] 04/24/2025 2:10 PM EDT Appointment [facility] Radiation [address] [phone] documented as of this encounter Visit Diagnoses [...] as of this encounter Care Teams Plant Physiology Teacher Relationship Specialty Start Date End Date Tejal Saeed APRN [address] [place] [address] PCP - General 11/07/20 03/11/25 Km Wooten MD [address] [facility] [address] [place] [phone] Consulting Physician Radiation Oncology 02/14/25 documented as of this encounter
--- OUTSIDE RECORDS SUMMARY | 2025-03-29 09:07 | XMS_ITS | Clinical Summary ---
Author Organization [facility] Address [address] [place] [address] Care Team Providers Care Tool And Die Maker Name Role Phone Km Wooten MD Unavailable [phone] Comfort Siddiqi APRN Primary Care Provider [phone] Allergies No known active allergies Medications atorvastatin [...] 1 tablet by mouth daily. 5 Active capecitabine (Xeloda) 500 MG chemo tablet Take 4 tablets (2,000 mg total) by mouth 2 times a day. Swallow whole with water. Do not crush or cut. Active Active Problems Problem Noted Date Diagnosed Date Class III obesity with body mass index (BMI) of 40.0 or higher 03/21/2025 Malignant neoplasm of rectum 2025 Cancer Staging:Clinical:Stage IIIB(cT3, cN2a, cM0) - Unsigned Encounters Date Type Department Care Team Description 03/28/2025 1:54 PM EDT Hospital Encounter [facility] Radiation [id number] [place] [address] Km Wooten MD Malignant neoplasm of rectum (CMS/HCC) (Primary Dx) 03/28/2025 1:37 PM EDT Hospital Encounter [facility] [address] [address] 03/28/2025 Orders Only [facility] Radiation [address] [phone] Radiation Oncology, Physician, 03/27/2025 1:38 PM EDT Hospital Encounter [facility] [address] [phone] 03/27/2025 Orders Only [facility] Radiation [address] [phone] Radiation Oncology, PhysicianMD 03/26/2025 1:30 PM EDT Hospital Encounter [facility] [address] [phone] 03/26/2025 Orders Only [facility] Radiation [address] [phone] Radiation Oncology, PhysicianMD 03/25/2025 1:35 PM EDT Hospital Encounter [facility] [address] [phone] 03/25/2025 5:30 AM EDT Hospital Encounter [facility] [address] [phone] Arrived 03/25/2025 Orders Only [facility] Radiation [address] [phone] Radiation Oncology, PhysicianMD 03/25/2025 Travel 03/22/2025 1:49 PM EDT Hospital Encounter [facility] [address] [phone] 03/22/2025 Orders Only [facility] Radiation [address] [phone] Radiation Oncology, Physician, 03/21/2025 2:12 PM EDT - 03/21/2025 11:59 PM EDT Hospital Encounter [facility] [address] [phone] Km Wooten MD Malignant neoplasm of rectum (CMS/HCC) (Primary Dx) Discharge Disposition: Still a Patient 03/21/2025 1:48 PM EDT - 03/21/2025 2:11 PM EDT Hospital Encounter [facility] [address] [phone] Km Wooten MD Discharge Disposition: Still a Patient 03/21/2025 Travel 03/21/2025 Orders Only [facility] Radiation [address] [phone] Radiation Oncology, Physician, 03/20/2025 Travel 03/18/2025 8:34 AM EDT - 03/18/2025 11:59 PM EDT Hospital Encounter [facility] [address] [phone] Discharge Disposition: Still a Patient 03/18/2025 Travel 03/15/2025 9:00 AM EDT Office Visit [facility] Head, Neck & Respiratory [address] [place] [phone] Deepak Haider MD Malignant neoplasm of rectum (CMS/HCC) (Primary Dx) 03/15/2025 Travel 03/12/2025 10:12 AM EDT Anesthesia Event [facility] Endoscopy [address] [place] [phone] Shaun Hanley MD 03/12/2025 9:12 AM EDT - 03/12/2025 11:59 PM EDT Hospital Encounter [facility] Endoscopy [address] [place] [phone] Eric Tellez MD Lung nodule Discharge Disposition: Home or Self Care 03/12/2025 Travel 03/11/2025 5:00 PM EDT - 03/11/2025 11:59 PM EDT Hospital Encounter [facility] [address] [phone] Discharge Disposition: Still a Patient 03/11/2025 Travel 03/04/2025 8:42 AM EDT - 03/04/2025 11:59 PM EDT Hospital Encounter [facility] Rad[facility] [address] [address] Discharge Disposition: Still a Patient 03/04/2025 Travel 03/01/2025 8:40 AM EDT - 03/01/2025 11:59 PM EDT Hospital Encounter [facility] Radiation [address] [address] Km Wooten MD Discharge Disposition: Still a Patient 02/28/2025 3:30 PM EDT Office Visit [facility] Head, Neck & Respiratory 800 [facility] [address] [place] [address] Eric Tellez MD Adenopathy (Primary Dx) 02/28/2025 Travel 02/26/2025 Telephone [facility] Urology [address] [address] Perlita Her RN 02/26/2025 Travel 02/25/2025 11:50 AM EDT - 02/25/2025 11:59 PM EDT Hospital Encounter [facility] Radiation [address] [phone] Discharge Disposition: Still a Patient 02/21/2025 Telephone [facility] Head[facility] Neck & Respiratory [address] [address] Eric Tellez MD 02/20/2025 Telephone [facility] Urology [address] [address] Susi Bustos 02/20/2025 Telephone [facility] Urology [address] [address] Susi Bustos 2025 2:44 PM EDT - 2025 11:59 PM EDT Hospital Encounter [facility] Radiation [address] [phone] Km Wooten MD Malignant neoplasm of rectum (CMS/HCC) (Primary Dx) Discharge Disposition: Still a Patient 2025 Travel 02/18/2025 Orders Only [facility] Radiation [address] [phone] Km Wooten MD Elevated PSA (Primary Dx) 02/14/2025 Orders Only [facility] Oncology Clinic [address] [place] [address] Con Sumner MD 02/14/2025 Telephone [facility] [address] [address] Km Wooten MD 02/14/2025 Orders Only [facility] [address] [place] [address] Con Sumner MD Malignant neoplasm of rectum (CMS/HCC) (Primary Dx) 02/11/2025 4:34 PM EDT - 02/11/2025 11:59 PM EDT Hospital Encounter [facility] Radiology [address] [place] [address] Malignant neoplasm of rectum (CMS/HCC) Discharge Disposition: Home or Self Care 02/11/2025 3:04 PM EDT - 02/11/2025 4:33 PM EDT Hospital Encounter [facility] Radiology [address] [place] [address] Malignant neoplasm of rectum (CMS/HCC) Discharge Disposition: Home or Self Care 02/11/2025 Travel 02/08/2025 Lab Requisition [facility] Lab [address] [place] [address] Con Sumner MD Hemorrhage of anus and rectum 02/05/2025 11:00 AM EDT Office Visit [facility] [address] [place] [address] Con Sumner MD Malignant neoplasm of rectum (CMS/HCC) (Primary Dx) 02/05/2025 Travel 01/08/2025 Orders Only External Location [address] [place] [address] Provider, External 01/08/2025 Orders Only External Location [address] [place] [address] Provider, External 01/08/2025 Orders Only External Location [address] [place] [address] Provider, External from Last 3 Months Family [...] 1.9 oz) 03/28/2025 1:58 PM EDT Height 167.6 cm (5' 6 ) 03/12/2025 9:47 AM EDT Body Mass Index 44.73 03/12/2025 9:47 AM EDT Plan of Treatment Upcoming Encounters Date Type Department Care Team (Late st Contact Info) Description 03/29/2025 2:10 PM EDT Appointment [facility] Radiation 800 [facility] [address] [place] [address] 04/01/2025 2:10 PM EDT Appointment [facility] Radiation [address] [phone] 04/02/2025 2:10 PM EDT Appointment [facility] Radiation [address] [phone] 04/03/2025 2:10 PM EDT Appointment [facility] Radiation [address] [phone] 04/04/2025 2:10 PM EDT Appointment [facility] Radiation [address] [phone] 04/05/2025 2:10 PM EDT Appointment [facility] Radiation [address] [phone] 04/08/2025 2:10 PM EDT Appointment [facility] Radiation [address] [phone] 04/09/2025 2:10 PM EDT Appointment [facility] Radiation [address] [phone] 04/10/2025 2:10 PM EDT Appointment [facility] Radiation [address] [phone] 04/11/2025 2:10 PM EDT Appointment [facility] Radiation [address] [phone] 04/12/2025 2:10 PM EDT Appointment [facility] Radiation [address] [phone] 04/15/2025 2:10 PM EDT Appointment [facility] Radiation [address] [phone] 04/16/2025 2:10 PM EDT Appointment [facility] Radiation [address] [address] 04/17/2025 2:10 PM EDT Appointment [facility] Radiation [address] [address] 04/18/2025 2:10 PM EDT Appointment [facility] Radiation [address] [phone] 04/19/2025 2:10 PM EDT Appointment [facility] Radiation [address] [place] [address] 04/22/2025 2:10 PM EDT Appointment [facility] Radiation [address] [place] [address] 04/23/2025 2:10 PM EDT Appointment [facility] Radiation [address] [place] [address] 04/24/2025 2:10 PM EDT Appointment [facility] Radiation [address] [place] [address] Health Maintenance Due Date Last Done Comments [...] 02/20/2016 Sigmoidoscopy 02/20/2016 [facility]-Colorectal Cancer Screening 02/20/2016 [id number] Vaccine ( - 2024- season) 2025 06/24/2021, 11/08/2020, 10/11/2020 [facility]-Influenza Vaccine (#1) 2025 05/16/2021 [facility]-Depression Screening 2026 025, 2025 [facility]-DTaP,Tdap,and Td Vaccine s (2 - Td or Tdap) 04/18/2031 04/18/2021 [facility]-Zoster Vaccines Completed 07/27/2021, 05/16/2021 [facility]-Obesity Intervention Completed 025, 02/05/2025 HPV Vaccines Aged Out No longer [...] SESSION SUMMARY Routine 03/28/2025 1:54 PM EDT RAD ONC ARIA SESSION SUMMARY Routine 03/27/2025 2:10 PM EDT RAD ONC ARIA SESSION SUMMARY Routine 03/26/2025 1:42 PM EDT RAD ONC ARIA SESSION SUMMARY Routine 03/25/2025 2:49 PM EDT RAD ONC ARIA SESSION SUMMARY Routine 03/22/2025 2:22 PM EDT RAD ONC ARIA SESSION SUMMARY Routine 03/21/2025 2:11 PM EDT FUNGAL CULTURE, TISSUE AND PARMINDER Routine 03/12/2025 12:37 PM EDT AFB CULTURE, NON RESPIRATORY SOURCE AND ACID FAST STAIN Routine 03/12/2025 12:37 PM EDT ANAEROBIC CULTURE Routine 03/12/2025 12: 37 PM EDT TISSUE CULTURE AND GRAM STAIN Routine 03/12/2025 12:37 PM EDT BRONCHOSCOPY Routine 03/12/2025 11:25 AM EDT Lung nodule FINE NEEDLE ASPIRATION - CYTOLOGY Routine 03/12/2025 10:43 AM EDT Lung nodule PB ANESTHESIA PLACEHOLDER Routine 03/12/2025 10:22 AM EDT VA AN ELECTIVE ENDOTRACHEAL AIRWAY Routine 03/12/2025 10:[address] CHEST W IV CONTRAST Routine 02/11/2025 [...] EDT from Last 3 Months Results * Rad Onc Aria Session Summary [...] ONCOLOGY Reference Point Dosage Given to Date 11.54823445 Gy ARIA RADIATION ONCOLOGY Reference Point Session Dosage Given 1.04731594 Gy ARIA RADIATION ONCOLOGY Plan ID A1A8 [...] GY ORDERABLES Final Result ARIA RADIATION ONCOLOGY * Rad Onc Aria Session Summary (03/27/2025 [...] ONCOLOGY Reference Point Dosage Given to Date 9.85235685 Gy ARIA RADIATION ONCOLOGY Reference Point Session Dosage Given 1.06893433 Gy ARIA RADIATION ONCOLOGY Plan ID A1A8 [...] GY ORDERABLES Final Result ARIA RADIATION ONCOLOGY * Rad Onc Aria Session Summary (03/26/2025 [...] ONCOLOGY Reference Point Dosage Given to Date 7.33296534 Gy ARIA RADIATION ONCOLOGY Reference Point Session Dosage Given 1.90491353 Gy ARIA RADIATION ONCOLOGY Plan ID A1A8 [...] GY ORDERABLES Final Result ARIA RADIATION ONCOLOGY * Rad Onc Aria Session Summary (03/25/2025 [...] ONCOLOGY Reference Point Dosage Given to Date 5.40711486 Gy ARIA RADIATION ONCOLOGY Reference Point Session Dosage Given 1.35101014 Gy ARIA RADIATION ONCOLOGY Plan ID A1A8 [...] GY ORDERABLES Final Result ARIA RADIATION ONCOLOGY * Rad Onc Aria Session Summary (03/22/2025 [...] ONCOLOGY Reference Point Dosage Given to Date 3.02069136 Gy ARIA RADIATION ONCOLOGY Reference Point Session Dosage Given 1.34861715 Gy ARIA RADIATION ONCOLOGY Plan ID A1A8 [...] 2:22 PM EDT Physician Radiation Oncology RADIATION ONCLZU GY ORDERABLES Final Result ARIA RADIATION ONCOLOGY * Rad Onc Aria Session Summary (03/21/2025 [...] ONCOLOGY Reference Point Dosage Given to Date 1.86674878 Gy ARIA RADIATION ONCOLOGY Reference Point Session Dosage Given 1.13232469 Gy ARIA RADIATION ONCOLOGY Plan ID A1A8 [...] 2:11 PM EDT Physician Radiation Oncology RADIATION ONCLUZ GY ORDERABLES Final Result ARIA RADIATION ONCOLOGY * Tissue Culture and Gram Stain (03/12/2025 12:37 PM EDT) Culture No growth at day 4 2024 2:01 PM EDT [facility] Gram Stain Result No organisms seen 03/16/2025 2:01 PM EDT [facility] Gram Stain Result No polymorphonuclear leukocytes seen 03/16/2025 2:01 PM EDT [facility] Fine Needle Aspirate Structure of lymph node / Unknown Non-blood Collection / Unknown 03/12/2025 12:37 PM EDT 03/12/2025 12:46 PM EDT Eric Tellez MD LAB MICROBIOLOGY - GENERAL OR DERABLES Final Result Performing Organization Address City/[facility] Co de Phone Number [facility] [address] [place] [address] * (ABNORMAL) Anaerobic Culture (03/12/2025 12:37 PM EDT) Culture No anaerobes isolated 03/16/2025 4:33 PM EDT [facility] Culture Streptococcus mitis/oralis group(A) 03/16/2025 4:33 PM EDT [facility] Comment: This isolate has been identified using the FDA Approved MALDI [employer] CA System The organism value for this [...] OR DERABLES Final Result Performing Organization Address City/[facility]/ZIP Co de Phone Number [facility] [address] [place] [address] * Bronchoscopy w EBUS (03/12/2025 11:25 AM [...] Nodes observed under convex ultrasound guidance. Onsite aircraft engine specialist was present and cytology results were preliminarily [...] Mccoy RN Endo Nurse Carmen Zelaya Endo Antique Dealer Palma Marin CRNA EXPLOSIVE ORDNANCE DISPOSAL MANAGER Eric Tellez MD Proceduralist Shaun Hanley MD Anesthesiologist Impression Overall Impression: Normal endobronchial exam The three lymph nodes sampled today on [address] were benign Post Procedure Diagnosis None Recommendation Follow-up: with referring provider Attestation I was present for the entire procedure Billing Codes See procedure report details above. 76213 - EBUS convex prove 1 or 2 lesions GC - Service has been performed in part by a resident/fellow under the direction of a teaching physician Eric Tellez MD GI PROCEDURE ORDERABLES Final Result * Fine needle aspiration (03/12/2025 10:43 AM EDT) Case Report Cytology Case: [id number] Authorizing Provider: Eric Tellez MD Collected: 03/12/2025 1043 Ordering Location: [facility] Endoscopy Received: 03/12/2025 1129 Pathologist: Nicole [...] ENDOBRONCHIAL ULTRASOUND GUIDED FINE NEEDLE ASPIRATION 5 12:59 PM EDT [facility] Final Diagnosis A. LYMPH NODE, STATION 7, ENDOBRONCHIAL ULTRASOUND-GUIDED FINE NEEDLE ASPIRATION: NO EVIDENCE OF MALIGNANCY, HEMODILUTE LYMPHOID TISSUE. B. LYMPH NODE, 4 RIGHT, ENDOBRONCHIAL ULTRASOUND-GUIDED FINE NEEDLE ASPIRATION: NO EVIDENCE OF MALIGNANCY, HEMODILUTE LYMPHOID TISSUE. C. LYMPH NODE, 11 RIGHT, ENDOBRONCHIAL ULTRASOUND-GUIDED FINE NEEDLE ASPIRATION: NO EVIDENCE OF MALIGNANCY, HEMODILUTE LYMPHOID TISSUE. 5 12:59 PM EDT [facility] at 1259 EDT Comment The possibility of rare poorly-formed granulomas is not excluded, especially in the station 7 lymph node sample. For this reason, GMS and AFB stains are performed. These are negative for organisms. 12:59 PM EDT [facility] Special and Immunohistochemical Stains Special Stain: A1-2 Acid Fast Bacteria A1-3 GMS IHC: There are no tasks to display for the given criteria. All controls show appropriate reactivity. All immunohistochemis try, in situ hybridization, and histochemical tests were developed by and are performed at the [facility], [address] [place] [address]. All tests reported here, except those addressing [...] on decalcified specimens. 5 12:59 PM EDT [facility] Immediate Evaluation A. FNA performed [...] physician listed above. 5 12:59 PM EDT [facility] Gross Description A. LYMPH NODE, [...] Cold Time: 1h 31m 12:59 PM EDT [facility] Note: A resident was involved in the service. I attest I examined the relevant preparations for the specimens and confirmed the diagnosis or interpretation. 12:59 PM EDT [facility] Clinical Information R91.1 - Lung nodule [ICD-10-CM] 12:59 PM EDT [facility] Fine Needle Aspirate Structure of lymph node / Unknown 03/12/2025 10:43 AM EDT 03/12/2025 11:29 AM EDT Specimen obtained by fine needle aspiration procedure (specimen) Structure of lymph node / Unknown 03/12/2025 10:51 AM EDT 03/12/2025 11:29 AM EDT Specimen obtained by fine needle aspiration procedure (specimen) Structure of lymph node / Unknown 03/12/2025 10:59 AM EDT 03/12/2025 11:29 AM EDT Eric Tellez MD LAB CYTOLOGY ORDERABLES Final Result [facility] [address] [place] [address] * VA AN ELECTIVE ENDOTRACHEAL AIRWAY, PB ANESTHESIA PLACEHOLDER (03/12/2025 10:22 AM EDT) Narrative Palma Marin CRNA - 03/12/2025 10:22 AM EDT Palma Marin CRNA 03/12/2025 10:32 AM Airway Date/Time: 03/12/2025 10:22 AM Reason: elective Airway not difficult General Information and Staff Patient location during procedure: OR EXPLOSIVE ORDNANCE DISPOSAL MANAGER: Palma Marin CRNA Performed: TEDDY Patient Condition [...] Hanley MD ANESTHESIA ORDERABLES Fin al Result * CT Chest w IV Contrast (02/11/2025 [...] EDT) Case Report Sugical Pathology Consult Case: [id number] Authorizing Provider: Con Sumner MD Collected: 02/08/20251104 Ordering Location: [facility] Lab Received: 02/08/20251104 Pathologist: Luis Weiner DO Specimen: Colon, [id number] 02/10/2025 12:09 PM EDT [facility] Final Diagnosis DESIGNATED COLON, RECTUM; MASS, BIOPSY (OUTSIDE SLIDES; [id number]; 02/05/2025): - MODERATELY DIFFERENTIATED ADENOCARCINOMA (SEE COMMENT). - MMR BY IHC (PER REPORT): - RETAINED NUCLEAR EXPRESSION OF ALL FOUR PROTEINS (MLH1, PMS2, MSH2 AND MSH6). 02/10/2025 12:09 PM EDT [facility] at 1209 EDT Comment Correlation with endoscopic findings and imaging is recommended to determine site of tumor (colon vs rectum) given specimen designation. 02/10/2025 12:[address] [facility] Clinical Information K62.5 - Hemorrhage of anus and rectum [ICD-10-CM] 02/10/2025 12:[address] [facility] Gross Description A. [id number] Received along with a corresponding pathology report from Pathology & Cytology Laboratory are 5 slide(s) labeled outside case: [id number] collected on 01/31/2025. 02/10/2025 12:[address] [facility] Note: A resident was involved in the service. I attest I examined the relevant preparations for the specimens and confirmed the diagnosis or interpretation. 02/10/2025 12:[address] [facility] Tissue Colon structure / Unknown 02/08/2025 11:05 AM EDT 02/08/2025 11:05 AM EDT us Con Sumner MD LAB PATHOLOGY ORDERABLES Final Result [facility] [address] [place] [address] * CEA (02/05/2025 11:54 AM EDT) CEA, Serum <1.8 <4.0 ng/mL 02/05/2025 1:[address] [facility] Blood Venous blood specimen / Unknown Venipuncture / Unknown 02/05/2025 11:54 AM EDT 02/05/2025 12:43 PM EDT Narrative [facility] - 02/05/2025 1:23 PM EDT Normal range for smokers: < 5.5 ng/ml Normal range for non-smokers: <=4.0 ng/ml Performed by Maged electrochemiluminescent immunoassay. Results obtained with different test methods or kits cannot be used interchangeably. us Con Sumner MD LAB BLOOD ORDERABLES Final Res ult [facility] [address] [place] [address] * CT OUTSIDE IMAGES (01/08/2025 8:49 PM [...] Date Diagnosed Date Autogenerated Problem 02/28/[address] [facility] Care Teams Tool And Die Maker Relationship Specialty Start Date End Date Comfort Siddiqi APRN [address] [place] [address] PCP - General 03/12/25 Km Wooten MD [address] [facility] [address] [place] [address] Consulting Physician Radiation Oncology 02/14/25
--- OUTSIDE RECORDS SUMMARY | 2025-03-29 09:07 | XMS_ITS | Encounter Summary ---
Author Organization [facility] Address [address] [place] [address] Care Team Providers Care Poultry Picking Machine Tender Name Role Phone Km Wooten MD Unavailable [phone] Comfort Siddiqi APRN Primary Care Provider [phone] Encounter Details Date Type Department Care Team (Latest Contact Info) Description 03/20/2025 Travel Social History Tobacco Use Types Packs/Day [...] Appointment [facility] Radiation [id number] [place] [address] 04/01/2025 2:10 PM EDT Appointment [facility] Radiation [address] [place] [address] 04/02/2025 2:10 PM EDT Appointment [facility] Radiation [address] [place] [address] 04/03/2025 2:10 PM EDT Appointment [facility] Radiation [address] [address] 04/04/2025 2:10 PM EDT Appointment [facility] Radiation [address] [phone] 04/05/2025 2:10 PM EDT Appointment [facility] Radiation [address] [phone] 04/08/2025 2:10 PM EDT Appointment [facility] Radiation [address] [address] 04/09/2025 2:10 PM EDT Appointment [facility] Radiation [address] [phone] 04/10/2025 2:10 PM EDT Appointment [facility] Radiation [address] [address] 04/11/2025 2:10 PM EDT Appointment [facility] Radiation [address] [address] 04/12/2025 2:10 PM EDT Appointment [facility] Radiation [address] [address] 04/15/2025 2:10 PM EDT Appointment [facility] Radiation [address] [phone] 04/16/2025 2:10 PM EDT Appointment [facility] Radiation [address] [address] 04/17/2025 2:10 PM EDT Appointment [facility] Radiation [address] [phone] 04/18/2025 2:10 PM EDT Appointment [facility] Radiation [address] [facility] [address] 04/19/2025 2:10 PM EDT Appointment [facility] Radiation [address] [phone] 04/22/2025 2:10 PM EDT Appointment [facility] Radiation [address] [phone] 04/23/2025 2:10 PM EDT Appointment [facility] Radiation [address] [phone] 04/24/2025 2:10 PM EDT Appointment [facility] Radiation [address] [phone] documented as of this encounter [...] documented as of this encounter Care Teams Poultry Picking Machine Tender Relationship Specialty Start Date End Date Comfort Siddiqi APRN [address] [place] [address] PCP - General 03/12/25 Km Wooten MD [address] [place] [address] Consulting Physician Radiation Oncology 02/14/25 documented as of this encounter
--- OUTSIDE RECORDS SUMMARY | 2025-03-29 09:07 | XMS_ITS | Encounter Summary ---
Author Organization [facility] Address [address] [id number] Care Team Providers Care Pork Cutlet Maker Name Role Phone Tejal Saeed APRN Primary Care Provider [phone] Km Wooten MD Unavailable [phone] Encounter Details Date Type Department Care [...] much Not at all 2025 2:59 PM EDSelena Márquez A Feeling tired or having raya le energy Not at all 2025 2:59 PM Lissa Angulo A Poor appetite or overeating Not at all 2025 2: 59 PM EDT Lissa Hanley A Feeling bad about yourself - or that you are a failure or have let yourself or your family down Not at all 2025 2:59 PM EDT Lissa Anaya A Trouble concentrating on thi ngs, such as reading the newspaper or watching television Not at all 2025 2:59 PM AMORT Lissa Hanley A Moving or speaking so slowly that [...] Questionnaire -9 Score 0 2025 2:59 PM AMORT Lissa Hanley A * Calculated C-SSRS Risk Score (Lifetime/Recent) Answer Date of Assessment Author No Risk Indicated 2025 2:59 PM Lissa Angulo * How difficult have these problems made it for you to do your work, take care of things at home, or get along with other people? Answer Date of Assessment Author Not difficult at all 2025 2:59 PM EDT Lissa Anaya A * Question Answer Date of Assessment Author 1. Wish to be (Past 1 Month) No 025 2:59 PM Lissa Angulo 2. Non-Specific Active Suici negar Thoughts (Past 1 Month) No 2025 2:59 PM EDT Smiley Hanley A 6. Suicidal Behavior (Lifetime) No 2:59 PM AMORT Lissa Hanley documented as of this encounter Plan of Treatment Upcoming Encounters Date Type Department Care Team (Late st Contact Info) Description 03/29/2025 2:10 PM EDT Appointment [facility] [address] [address] 04/01/2025 2:10 PM EDT Appointment [facility] [address] [address] 04/02/2025 2:10 PM EDT Appointment [facility] [address] [address] 04/03/2025 2:10 PM EDT Appointment [facility] [address] [address] 04/04/2025 2:10 PM EDT Appointment [facility] [address] [address] 04/05/2025 2:10 PM EDT Appointment [facility] [address] [address] 04/08/2025 2:10 PM EDT Appointment [facility] [address] [address] 04/09/2025 2:10 PM EDT Appointment [facility] [address] [address] 04/10/2025 2:10 PM EDT Appointment [facility] [address] [address] 04/11/2025 2:10 PM EDT Appointment [facility] [address] [address] 04/12/2025 2:10 PM EDT Appointment [facility] [address] [address] 04/15/2025 2:10 PM EDT Appointment [facility] [address] [address] 04/16/2025 2:10 PM EDT Appointment [facility] [address] [address] 04/17/2025 2:10 PM EDT Appointment [facility] [address] [place] [address] 04/18/2025 2:10 PM EDT Appointment [facility] [address] [place] [address] 04/19/2025 2:10 PM EDT Appointment [facility] [address] [id number] [place] [address] 04/22/2025 2:10 PM EDT Appointment [facility] [address] [id number] [place] [address] 04/23/2025 2:10 PM EDT Appointment [facility] [address] [address] 04/24/2025 2:10 PM EDT Appointment [facility] [address] [address] documented as of this encounter Visit Diagnoses [...] documented as of this encounter Care Teams Pork Cutlet Maker Relationship Specialty Start Date End Date Tejal Saeed APRN [address] [place] [address] PCP - General 11/07/20 03/11/25 Km Wooten MD [address] [place] [address] Consulting Physician Radiation Oncology 02/14/25 documented as of this encounter
[2025-03-29 09:19] LABS: Hematocrit 41.0 % (42.0-52.0); Hemoglobin 13.4 g/dL (14.1-18.0); Mean Corpuscular HGB Conc 32.7 g/dL (31.8-35.4); Mean Corpuscular Hemoglobin 27.0 pg (27.0-31.2); Mean Corpuscular Volume 82.7 fl (80-94); Platelet Count 200 K/mm3 (142-424); Red Blood Count 4.96 M/mm3 (4.60-6.20); White Blood Count 4.1 K/mm3 (4.8-10.8)
--- NOTE | 2025-03-29 09:32 | PC.NURSE ---
0908-Blood drawn from right AC using butterfly needle to check CBC, per Dr Bill.
[2025-03-29 09:56] LABS: RBC Morphology Normal; Total Cells Counted 100
== END 2025-03-29 23:59 | disposition home or self-care (01) ==
LOC: INF 09:02
PROVIDERS: PCP Family Medicine; Visit Provider Internal Medicine Medical Oncology
DX: C20 Malignant neoplasm of rectum (principal)
CPT/HCPCS: 36415; 85007; 85014; 85018; 85048; 85049

== ENCOUNTER 2025-04-03 08:57 | Outpatient (CLI) | payer OTHER, SELFPAY ==
--- NOTE | 2025-04-03 09:02 | PC.NURSE ---
pt stuck with 23g butterfly needle in RAC x1 attempt. labs placed. cbc drawn and sent to lab. needle removed. coban and 2x2s applied. bleeding controlled. pt tolerated well.
[2025-04-03 09:05] VITALS: RESP 18; O2SAT 100
[2025-04-03 09:13] LABS: Hematocrit 40.0 % (42.0-52.0); Hemoglobin 13.1 g/dL (14.1-18.0); Mean Corpuscular HGB Conc 32.8 g/dL (31.8-35.4); Mean Corpuscular Hemoglobin 27.0 pg (27.0-31.2); Mean Corpuscular Volume 82.3 fl (80-94); Platelet Count 167 K/mm3 (142-424); Red Blood Count 4.86 M/mm3 (4.60-6.20); White Blood Count 4.5 K/mm3 (4.8-10.8)
[2025-04-03 10:48] LABS: RBC Morphology Normal; Total Cells Counted 100
== END 2025-04-03 09:05 | disposition home or self-care (01) ==
LOC: INF 08:57
PROVIDERS: PCP Family Medicine; Visit Provider Internal Medicine Medical Oncology
DX: C20 Malignant neoplasm of rectum (principal)
CPT/HCPCS: 36415; 85007; 85014; 85018; 85048; 85049

== ENCOUNTER 2025-04-10 08:38 | Outpatient (CLI) | payer OTHER, SELFPAY ==
--- OUTSIDE RECORDS SUMMARY | 2025-02-11 15:04 | XMS_ITS | Encounter Summary ---
Author Organization [facility] Address [address] [id number] Care Team Providers Care Bias Cutter Helper Name Role Phone Tejal Saeed APRN Primary Care Provider +1 -[phone] Reason for Referral * Imaging (Routine) - Closed Specialty Diagnoses / Procedures Referred By Contac t Referred To Contact Radiology Diagnoses Malignant neoplasm of rectum (CMS/HCC) Procedures MR Pelvis w and wo IV Contrast Con Sumner MD [address] [address] Phone: tel: fax: Referral ID Status Reason Start Date Expiration Date Visits Re quested Visits Authorized [id number] Closed 02/05/2025 08/07/2026 1 1 Reason for Visit * Imaging (Routine) - Closed Specialty Diagnoses / Procedures Referred By Alice maria Referred To Contact Radiology Diagnoses Malignant neoplasm of rectum (CMS/HCC) Procedures MR Pelvis w and wo IV Contrast Con Sumner MD [address] [place] [phone] Phone: tel: fax: Referral ID Status Reason Start Date Expiration Date Visits Re quested Visits Authorized [id number] Closed 02/05/2025 08/07/2026 1 1 Encounter Details Date Type Department Care Team (Latest Contact Info) Description 02/11/2025 3:04 PM EDT - 02/11/2025 4:33 PM EDT Hospital Encounter [facility] Radiology [address] [place] [address] Malignant neoplasm of rectum (CMS/HCC) Discharge Disposition: Home or Self Care Social History Tobacco Use Types Packs/Day Years Used Date Smoking Tobacco: Never Smokeless Tobacco: Never Alcohol Use Standard Drinks/Week Comments Yes 0 (1 standard drink = 0.6 oz pur e alcohol) Rarely PHQ-2 Answer Date Recorded Patient Health Questionnaire-2 Score 0 2025 PHQ-9 Answer Date Recorded Patient Health Questionnaire-9 Score 0 2025 Sex and Gender Information Value Date Recorded [...] Care Team (Late st Contact Info) Description 04/10/2025 2:10 PM EDT Appointment [facility] [address] [id number] [place] [address] 04/11/2025 2:10 PM EDT Appointment [facility] [address] [id number] [place] [address] 04/12/2025 2:10 PM EDT Appointment [facility] [address] [address] 04/15/2025 2:10 PM EDT Appointment [facility] [address] [address] 04/16/2025 2:10 PM EDT Appointment [facility] [address] [address] 04/17/2025 2:10 PM EDT Appointment [facility] [address] [address] 04/18/2025 2:10 PM EDT Appointment [facility] [address] [address] 04/19/2025 2:10 PM EDT Appointment [facility] [address] [address] 04/22/2025 2:10 PM EDT Appointment [facility] [address] [address] 04/23/2025 2:10 PM EDT Appointment [facility] [address] [address] 04/24/2025 2:10 PM EDT Appointment [facility] [address] [phone] documented as of this encounter Procedures Procedure [...] documented as of this encounter Care Teams Bias Cutter Helper Relationship Specialty Start Date End Date Tejal Saeed, TARUN [address] [place] [address] PCP - General 11/07/20 03/11/25 documented as of this encounter
--- OUTSIDE RECORDS SUMMARY | 2025-02-11 16:34 | XMS_ITS | Encounter Summary ---
Author Organization [facility] Address [address] [place] [address] Care Team Providers Care Provider Enrollment Specialist Name Role Phone Tejal Saeed APRN Primary Care Provider [phone] [phone] Reason for Referral * Imaging (Routine) - Closed Specialty Diagnoses / Procedures Referred By Alice maria Referred To Contact Radiology Diagnoses Malignant neoplasm of rectum (CMS/HCC) Procedures CT Chest w IV Contrast Con Sumner MD [address] [address] Phone: tel: fax: Referral ID Status Reason Start Date Expiration Date Visits Re quested Visits Authorized [id number] Closed 02/05/2025 08/07/2026 1 1 Reason for Visit * Imaging (Routine) - Closed Specialty Diagnoses / Procedures Referred By Alice maria Referred To Contact Radiology Diagnoses Malignant neoplasm of rectum (CMS/HCC) Procedures CT Chest w IV Contrast Con Sumner MD [address] [address] Phone: tel: fax: Referral ID Status Reason Start Date Expiration Date Visits Re quested Visits Authorized [id number] Closed 02/05/2025 08/07/2026 1 1 Encounter Details Date Type Department Care Team (Latest Contact Info) Description 02/11/2025 4:34 PM EDT - 02/11/2025 11:59 PM EDT Hospital Encounter [facility] Radiology [address] [place] [address] Malignant neoplasm of rectum (CMS/HCC) Discharge Disposition: [...] Appointment [facility] [address] [id number] [place] [address] 04/11/2025 2:10 PM EDT Appointment [facility] [address] [id number] [place] [address] 04/12/2025 2:10 PM EDT Appointment [facility] [address] [id number] [place] [address] 04/15/2025 2:10 PM EDT Appointment [facility] [id number] [place] [address] 04/16/2025 2:10 PM EDT Appointment [facility] [address] [address] 04/17/2025 2:10 PM EDT Appointment [facility] [address] [address] 04/18/2025 2:10 PM EDT Appointment [facility] [address] [address] 04/19/2025 2:10 PM EDT Appointment [facility] [address] [address] 04/22/2025 2:10 PM EDT Appointment [facility] [address] [address] 04/23/2025 2:10 PM EDT Appointment [facility] [address] [address] 04/24/2025 2:10 PM EDT Appointment [facility] [address] [address] documented as of this encounter Procedures Procedure [...] imaging, 1 dose, Starting on Tue02/11/25 at 1635, Until Tue02/11/25 at 1646, Routine, [...] documented as of this encounter Care Teams Provider Enrollment Specialist Relationship Specialty Start Date End Date Tejal Saeed, COURTROOM DEPUTY [address] [place] [address] PCP - General 11/07/20 03/11/25 documented as of this encounter
--- OUTSIDE RECORDS SUMMARY | 2025-02-19 14:44 | XMS_ITS | Encounter Summary ---
Author Organization [facility] Address [address] [id number] Care Team Providers Care Mine Deputy Name Role Phone Tejal Saeed APRN Primary Care Provider [phone] Moreno Duarte MD Unavailable [phone] Reason for Referral * Radiation Therapy (Routine) - Authorized Specialty Diagnoses / Procedures Referred By Contac t Referred To Contact Radiation Oncology Diagnoses Malignant neoplasm of rectum (CMS/HCC) Procedures Rad Onc Intent to Treat Rad Onc Intent to Treat Moreno Duarte MD [address] [address] Phone: tel: fax: [facility] 800 [facility] [place] [address] Phone: tel: fax: Referral ID Status Reason Start Date Expiration Date Visits Requested Visits Authorized [id number] Authorized Perform Procedure 03/01/2025 08/29/2025 25 25 * Consultation (Routine) - Closed Specialty Diagnoses / Procedures Referred By Contac t Referred To Contact Pulmonology Diagnoses Malignant neoplasm of rectum (CMS/HCC) Moreno Duarte MD [address] [address] Phone: tel: fax: [facility] [address] [place] [address] Phone: tel: fax: Referral ID Status Reason Start Date Expiration Date V isits Requested Visits Authorized [id number] Closed Specialty Services Required 2025 08/21/2026 1 1 Scheduling Instructions Biopsy concerning mediastinal lymph nodes * Consultation (Routine) - Closed Specialty Diagnoses / Procedures Referred By Contac t Referred To Contact Radiation Oncology Diagnoses Malignant neoplasm of rectum (CMS/HCC) Con Sumner MD [address] [address] Phone: tel: fax: [facility] [address] [address] Phone: tel: fax: Referral ID Status Reason Start Date Expiration Date V isits Requested Visits Authorized [id number] Closed Specialty Services Required 02/14/2025 08/16/2026 1 1 Scheduling Instructions Rectal cancer - needs total neoadjuvant therapy. Schedule radiation oncology at [facility] Scheduling medical oncology with Dr. Kaleb Bill at [facility]. Reason for Visit * Reason Comments Consult * Consultation (Routine) - Closed Specialty Diagnoses / Procedures Referred By Contac t Referred To Contact Radiation Oncology Diagnoses Malignant neoplasm of rectum (CMS/HCC) Con Sumner MD [address] [address] Phone: tel: fax: [facility] [address] [address] Phone: tel: fax: Referral ID Status Reason Start Date Expiration Date V isits Requested Visits Authorized [id number] Closed Specialty Services Required 02/14/2025 08/16/2026 1 1 Encounter Details Date Type Department Care Team (Latest Contact Info) Description 2025 2:44 PM EDT - 2025 11:59 PM EDT Hospital Encounter [facility] [id number] [place] [address] Moreno Duarte MD [address] [place] [address] Malignant neoplasm of rectum (CMS/HCC) [...] 02/05/25 COLON, RECTUM; MASS, BIOPSY (OUTSIDE SLIDES; [id number]; 02/05/2025): - MODERATELY DIFFERENTIATED ADENOCARCINOMA (SEE COMMENT). [...] Scheduled tomorrow with Dr. Kaleb Bill at [facility] in [place]. Referral sent to Pulmonology for consideration of biopsy for mediastinal lymph nodes. Thank you for allowing us to participate in the care of Carlso Tripp. Future Appointments Date Time Provider Department Center 03/01/2025 9:00 AM Moreno Duarte MD [facility] Orders Placed This Encounter Procedures Comprehensive metabolic [...] Appointment [facility] [address] [phone] 04/11/2025 2:10 PM EDT Appointment [facility] [address] [id number] 04/12/2025 2:10 PM EDT Appointment [facility] [address] [id number] 04/15/2025 2:10 PM EDT Appointment [facility] [address] [address] 04/16/2025 2:10 PM EDT Appointment [facility] [address] [id number] 04/17/2025 2:10 PM EDT Appointment [facility] [address] [id number] 04/18/2025 2:10 PM EDT Appointment [facility] [address] [id number] 04/19/2025 2:10 PM EDT Appointment [facility] [address] [phone] 04/22/2025 2:10 PM EDT Appointment [facility] [address] [address] 04/23/2025 2:10 PM EDT Appointment [facility] [address] [phone] 04/24/2025 2:10 PM EDT Appointment [facility] [address] [place] [address] Scheduled Orders Name Type Priority Associated Diagnoses [...] Time PHQ-9 Depression Total Score: 0 02/20/20 25 2:59 PM EDT A fall risk assessment has been complete d for the patient 02/05/2025 10:24 AM EDT A Body Mass Index follow-up plan has been documented for the patient 02/05/2025 12:03 PM EDT documented as of this encounter Care Teams Mine Deputy Relationship Specialty Start Date End Date Tejal Saeed APRN [address] [place] [address] PCP - General 11/07/20 03/11/25 Moreno Duaret MD [address] [address] Consulting Physician Radiation Oncology 02/14/25 documented as of this encounter
--- OUTSIDE RECORDS SUMMARY | 2025-02-25 11:50 | XMS_ITS | Encounter Summary ---
Author Organization [facility] Address [address] [id number] Care Team Providers Care Supervisor Blueprinting And Photocopy Name Role Phone Tejal Saeed APRN Primary Care Provider [phone] Km Wooten MD Unavailable [phone] Encounter Details Date Type Department Care Team (Latest Contact Info) Description 02/25/2025 11:50 AM EDT - 02/25/2025 11:59 PM EDT Hospital Encounter [facility]iation [id number] [place] [address] Discharge Disposition: Still a Patient Social History [...] Appointment [facility] [address] [address] 04/11/2025 2:10 PM EDT Appointment [facility] Radiation [address] [address] 04/12/2025 2:10 PM EDT Appointment [facility] Radiation [address] [address] 04/15/2025 2:10 PM EDT Appointment [facility] Radiation [address] [address] 04/16/2025 2:10 PM EDT Appointment [facility] [address] [address] 04/17/2025 2:10 PM EDT Appointment [facility] Radiation [address] [address] 04/18/2025 2:10 PM EDT Appointment [facility] Radiation [address] [address] 04/19/2025 2:10 PM EDT Appointment [facility] [address] [address] 04/22/2025 2:10 PM EDT Appointment [facility] Radiation [address] [address] 04/23/2025 2:10 PM EDT Appointment [facility] [address] [address] 04/24/2025 2:10 PM EDT Appointment [facility] [address] [address] documented as of this encounter Visit Diagnoses [...] documented as of this encounter Care Teams Supervisor Blueprinting And Photocopy Relationship Specialty Start Date End Date Tejal Saeed, DIESEL PILE DRIVER OPERATOR [address] [place] [address] PCP - General 11/07/20 03/11/25 Km Wooten MD 800 [facility] [address] [place] [address] Consulting Physician Radiation Oncology 02/14/25 documented as of this encounter
--- OUTSIDE RECORDS SUMMARY | 2025-02-28 15:30 | XMS_ITS | Encounter Summary ---
Author Organization [facility] Address [address] [place] [address] Care Team Providers Care Extrusion Die Repairer Name Role Phone Tejal Saeed APRN Primary Care Provider [phone] Km Wooten MD Unavailable [phone] Reason for Visit * Reason Comments New Patient * Consultation (Routine) - Closed Specialty Diagnoses / Procedures Referred By Contac t Referred To Contact Pulmonology Diagnoses Malignant neoplasm of rectum (CMS/HCC) Km Wooten MD [address] [facility] [address] [place] [address] Phone: tel: fax: [facility] [facility] [address] [place] [address] Phone: tel: fax: Referral ID Status Reason Start Date Expiration Date V isits Requested Visits Authorized [id number] Closed Specialty Services Required 2025 08/21/2026 1 1 Encounter Details Date Type Department Care Team (Late st Contact Info) Description 02/28/2025 3:30 PM EDT Office Visit Pav CC Head, Neck & Respiratory [address] [facility], 2nd [place] [address] Eric Tellez MD [address] [place] [address] Adenopathy (Primary Dx) Social History [...] 3:30 PM EDT HEAD, NECK, RESPIRATORY CLINIC [facility] [place] Referring physician: Km Wooten MD, Con Sumner MD Chief Complaint Mediastinal adenopathy History Of Present Illness Carlos Tripp is a 55 y.o. male with history of lower rectum adenoca, Stage III cT3 cN2a [id number] 02/05/25. CT chest on showed lymph nodes [...] Appointment [facility] Radiation [address] [address] 04/11/2025 2:10 PM EDT Appointment [facility] Radiation [address] [address] 04/12/2025 2:10 PM EDT Appointment [facility] Radiation [address] [address] 04/15/2025 2:10 PM EDT Appointment [facility] Radiation [address] [address] 04/16/2025 2:10 PM EDT Appointment [facility] Radiation [address] [address] 04/17/2025 2:10 PM EDT Appointment [facility] Radiation [address] [address] 04/18/2025 2:10 PM EDT Appointment [facility] Radiation [id number] [place] [address] 04/19/2025 2:10 PM EDT Appointment [facility] Radiation [id number] [place] [address] 04/22/2025 2:10 PM EDT Appointment [facility] Radiation [id number] [place] [address] 04/23/2025 2:10 PM EDT Appointment [facility] Radiation [address] [place] [address] 04/24/2025 2:10 PM EDT Appointment [facility] Radiation [address] [address] documented as of this encounter [...] documented as of this encounter Care Teams Extrusion Die Repairer Relationship Specialty Start Date End Date Tejal Saeed APRN [address] [place] [address] PCP - General 11/07/20 03/11/25 Km Wooten MD [address] [place] [address] Consulting Physician Radiation Oncology 02/14/25 documented as of this encounter
--- OUTSIDE RECORDS SUMMARY | 2025-03-01 08:40 | XMS_ITS | Encounter Summary ---
Author Organization [facility] Address [address] [id number] Care Team Providers Care Retail Analytics Manager Name Role Phone Tejal Saeed APRN Primary Care Provider +1 -[phone] Km Wooten MD Unavailable [phone] Encounter Details Date Type Department Care Team (Latest Contact Info) Description 03/01/2025 8:40 AM EDT - 03/01/2025 11:59 PM EDT Hospital Encounter [facility] [address] [id number] [place] [address] Km Wooten MD [address] [place] [address] Discharge Disposition: Still a Patient [...] Appointment [facility] [address] [address] 04/11/2025 2:10 PM EDT Appointment [facility] [address] [address] 04/12/2025 2:10 PM EDT Appointment [facility] [address] [address] 04/15/2025 2:10 PM EDT Appointment [facility] [address] [address] 04/16/2025 2:10 PM EDT Appointment [facility] [address] [address] 04/17/2025 2:10 PM EDT Appointment [facility] [address] [address] 04/18/2025 2:10 PM EDT Appointment [facility] [address] [address] 04/19/2025 2:10 PM EDT Appointment [facility] [address] [place] [address] 04/22/2025 2:10 PM EDT Appointment [facility] [address] FH529W [place] [address] 04/23/2025 2:10 PM EDT Appointment [facility] [address] [id number] [place] [address] 04/24/2025 2:10 PM EDT Appointment [facility] [address] [address] documented as of this encounter [...] documented as of this encounter Care Teams Retail Analytics Manager Relationship Specialty Start Date End Date Tejal Saeed APRN [address]0 [place] [address] PCP - General 11/07/20 03/11/25 Km Wooten MD [address] [facility] C114D [place] [address] Consulting Physician Radiation Oncology 02/14/25 documented as of this encounter
--- OUTSIDE RECORDS SUMMARY | 2025-03-04 08:42 | XMS_ITS | Encounter Summary ---
Author Organization Healthcare Address [address] [id number] Care Team Providers Care Rn Trauma Name Role Phone Tejal Saeed APRN Primary Care Provider [phone] [phone] Km Wooten MD Unavailable [phone] Encounter Details Date Type Department Care Team (Latest Contact Info) Description 03/04/2025 8:42 AM EDT - 03/04/2025 11:59 PM EDT Hospital Encounter [facility] [address] [id number] [place] [address] Discharge Disposition: Still a Patient Social History [...] EDT Appointment [facility] [address] [address] 04/11/2025 2:10 PM EDT Appointment [facility] [address] [address] 04/12/2025 2:10 PM EDT Appointment [facility] [address] [address] 04/15/2025 2:10 PM EDT Appointment [facility] [address] [address] 04/16/2025 2:10 PM EDT Appointment [facility] [address] [address] 04/17/2025 2:10 PM EDT Appointment [facility] [address] [address] 04/18/2025 2:10 PM EDT Appointment [facility] [address] [address] 04/19/2025 2:10 PM EDT Appointment [facility] [address] [address] 04/22/2025 2:10 PM EDT Appointment [facility] [address] [address] 04/23/2025 2:10 PM EDT Appointment [facility] [address] [id number] [place] [address] 04/24/2025 2:10 PM EDT Appointment [facility] [address] [id number] [place] [address] documented as of this encounter Goals Goal [...] documented as of this encounter Care Teams Rn Trauma Relationship Specialty Start Date End Date Tejal Saeed APRN [address]0 [place] [address] PCP - General 11/07/20 03/11/25 Km Wooten MD [address] [place] [address] Consulting Physician Radiation Oncology 02/14/25 documented as of this encounter
--- OUTSIDE RECORDS SUMMARY | 2025-03-11 17:00 | XMS_ITS | Encounter Summary ---
Author Organization [facility] Address [address] [id number] Care Team Providers Care Shipping And Receiving Operator Name Role Phone Tejal Saeed APRN Primary Care Provider [phone] Km Wooten MD Unavailable [phone] Encounter Details Date Type Department Care Team (Latest Contact Info) Description 03/11/2025 5:00 PM EDT - 03/11/2025 11:59 PM EDT Hospital Encounter [facility] [id number] [place] [address] Discharge Disposition: Still a Patient Social History [...] EDT Appointment [facility] [address] [address] 04/11/2025 2:10 PM EDT Appointment [facility] [address] [address] 04/12/2025 2:10 PM EDT Appointment [facility] [address] [address] 04/15/2025 2:10 PM EDT Appointment [facility] [address] [address] 04/16/2025 2:10 PM EDT Appointment [facility] [address] [address] 04/17/2025 2:10 PM EDT Appointment [facility] [address] [address] 04/18/2025 2:10 PM EDT Appointment [facility] [address] [address] 04/19/2025 2:10 PM EDT Appointment [facility] [address] [address] 04/22/2025 2:10 PM EDT Appointment [facility] [address] [address] 04/23/2025 2:10 PM EDT Appointment [facility] [id number] [place] [address] 04/24/2025 2:10 PM EDT Appointment [facility] [address] [place] [address] documented as of this encounter Goals Goal [...] documented as of this encounter Care Teams Shipping And Receiving Operator Relationship Specialty Start Date End Date Tejal Saeed APRN [address] [place] [address] PCP - General 11/07/20 03/11/25 Km Wooten MD [address] [place] [address] Consulting Physician Radiation Oncology 02/14/25 documented as of this encounter
--- OUTSIDE RECORDS SUMMARY | 2025-03-12 09:12 | XMS_ITS | Encounter Summary ---
Author Organization [facility] Address [address] [place] [address] Care Team Providers Care General Freight Agent Name Role Phone Km Wooten MD Unavailable [phone] Comfort Siddiqi APRN Primary Care Provider [phone] Reason for Referral * Imaging (Routine) - Closed Specialty Diagnoses / Procedures Referred By Alice maria Referred To Contact Gastroenterology Diagnoses Lung nodule Procedures Bronchoscopy w Eric Salas MD [address] [place] [address] Phone: tel: fax: Referral ID Status Reason Start Date Expiration Date V isits Requested Visits Authorized [id number] Closed Specialty Services Required 02/28/2025 08/30/2026 1 1 Reason for Visit * Imaging (Routine) - Closed Specialty Diagnoses / Procedures Referred By Alice maria Referred To Contact Gastroenterology Diagnoses Lung nodule Procedures Bronchoscopy w Eric Salas MD [facility] [place] [address] Phone: tel: fax: Referral ID Status Reason Start Date Expiration Date V isits Requested Visits Authorized [id number] Closed Specialty Services Required 02/28/2025 08/30/2026 1 1 Encounter Details Date Type Department Care Team (Latest Contact Info) Description 03/12/2025 9:12 AM EDT - 03/12/2025 11:59 PM EDT Hospital Encounter [facility] [address] [place] [address] Eric Tellez MD [address] [place] [phone] Lung nodule Discharge Disposition: Home or Self [...] lower rectum adenoca, Stage III cT3 cN2a [id number] 02/05/25. CT chest on showed lymph nodes [...] from the original note were not included. [id number] Anesthesia: General Anesthesia You?re due to have [...] medicines you take. This includes prescription and dfvu-zxu-[id number] medicines. It also includes vitamins, herbs, and [...] Last Reviewed Date: 2023 00:00:00 ?? [employer]. All rights reserved. This information is not [...] temp is over 100?F, you may take zdud-uya-ktitwlq Tylenol. ? Blood in the mouth: For a few days, you may cough up a little blood or have a little blood in your spit. This is normal. Call 114 right away if you have any of [...] and weekends, call and ask for the route rider salesperson handbags. ? For the Transplant Service, call . Nights and weekends, call . ? For Pediatric Pulmonary, call and ask for the pediatric attending salesperson handbags. ? For Otolaryngology, call . Nights and weekends, call and ask for thesurgical resident salesperson handbags. documented in this encounter Plan of Treatment Upcoming Encounters Date Type Department Care Team (Late st Contact Info) Description 04/10/2025 2:10 PM EDT Appointment [facility] [address] [place] [phone] 04/11/2025 2:10 PM EDT Appointment [facility] [address] [phone] 04/12/2025 2:10 PM EDT Appointment [facility] [id number] [place], [place] [phone] 04/15/2025 2:10 PM EDT Appointment [facility] [address] [place] [phone] 04/16/2025 2:10 PM EDT Appointment [facility] [address] [phone] 04/17/2025 2:10 PM EDT Appointment [facility] [address] [phone] 04/18/2025 2:10 PM EDT Appointment [facility] [address] [phone] 04/19/2025 2:10 PM EDT Appointment [facility] [address] [phone] 04/22/2025 2:10 PM EDT Appointment [facility] [address] [phone] 04/23/2025 2:10 PM EDT Appointment [facility] [address] [phone] 04/24/2025 2:10 PM EDT Appointment [facility] [address] [phone] Pending Results Name Type Priority Associated Diagnoses [...] at 4 Weeks 04/09/2025 6:43 AM EDT [facility] PARMINDER No fungal elements seen 04/09/2025 6:43 AM EDT [facility] Fine Needle Aspirate Structure of lymph node / Unknown Non-blood Collection / Unknown 03/12/2025 12:37 PM EDT 03/12/2025 12:46 PM EDT Eric Tellez MD LAB MICROBIOLOGY - GENERAL OR DERABLES Final Result [facility] [address] [place] [address] * (ABNORMAL) Anaerobic Culture (03/12/2025 12:37 PM EDT) Culture No anaerobes isolated 03/16/2025 4:33 PM EDT [facility] Culture Streptococcus mitis/oralis group(A) 03/16/2025 4:33 PM EDT [facility] Comment: This isolate has been identified using the FDA Approved Lumuser CA System The organism value for this [...] OR DERABLES Final Result Performing Organization Address [facility] [place] [address] * Tissue Culture and Gram Stain (03/12/2025 12:37 PM EDT) Culture No growth at day 4 2024 2:01 PM EDT [facility] Gram Stain Result No organisms seen 03/16/2025 2:01 PM EDT [facility] Gram Stain Result No polymorphonuclear leukocytes seen 03/16/2025 2:01 PM EDT [facility] Fine Needle Aspirate Structure of lymph node / Unknown Non-blood Collection / Unknown 03/12/2025 12:37 PM EDT 03/12/2025 12:46 PM EDT Eric Tellez MD LAB MICROBIOLOGY - GENERAL OR DERABLES Final Result Performing Organization Address [facility] [place] [address] * Bronchoscopy w EBUS (03/12/2025 11:25 AM [...] Nodes observed under convex ultrasound guidance. Onsite child support investigator was present and cytology results were preliminarily [...] Mccoy RN Endo Nurse Carmen Zelaya Endo Combination Man Palma Marin CRNA CEPHALOMETRIC TRACER Eric Tellez MD Proceduralist Shaun Hanley MD Anesthesiologist Impression Overall Impression: Normal endobronchial exam The three lymph nodes sampled today on [address] were benign Post Procedure Diagnosis None Recommendation Follow-up: with referring provider Attestation I was present for the entire procedure Billing Codes See procedure report details above. 01516 - EBUS convex prove 1 or 2 lesions GC - Service has been performed in part by a resident/fellow under the direction of a teaching physician us Eric Tellez MD GI PROCEDURE ORDERABLES Final Result * Fine needle aspiration (03/12/2025 10:43 AM EDT) Case Report Cytology Case: [id number] Authorizing Provider: Eric Tellez MD Collected: 03/12/2025 1043 Ordering Location: [facility] H Endoscopy Received: 03/12/2025 1129 [...] GUIDED FINE NEEDLE ASPIRATION 12:59 PM EDT [facility] Final Diagnosis A. LYMPH NODE, STATION 7, ENDOBRONCHIAL ULTRASOUND-GUIDED FINE NEEDLE ASPIRATION: NO EVIDENCE OF MALIGNANCY, HEMODILUTE LYMPHOID TISSUE. B. LYMPH NODE, 4 RIGHT, ENDOBRONCHIAL ULTRASOUND-GUIDED FINE NEEDLE ASPIRATION: NO EVIDENCE OF MALIGNANCY, HEMODILUTE LYMPHOID TISSUE. C. LYMPH NODE, 11 RIGHT, ENDOBRONCHIAL ULTRASOUND-GUIDED FINE NEEDLE ASPIRATION: NO EVIDENCE OF MALIGNANCY, HEMODILUTE LYMPHOID TISSUE. 12:59 PM EDT [facility] at 1259 EDT Comment The possibility of rare poorly-formed granulomas is not excluded, especially in the station 7 lymph node sample. For this reason, GMS and AFB stains are performed. These are negative for organisms. 12:59 PM EDT [facility] Special and Immunohistochemical Stains Special Stain: A1-2 Acid Fast Bacteria A1-3 GMS IHC: There are no tasks to display for the given criteria. All controls show appropriate reactivity. All immunohistochemis try, in situ hybridization, and histochemical tests were developed by and are performed at the [facility], [address] [place] [address]. All tests reported here, except those addressing [...] on decalcified specimens. 5 12:59 PM EDT [facility] Immediate Evaluation A. FNA performed [...] physician listed above. 5 12:59 PM EDT [facility] Gross Description A. LYMPH NODE, [...] Time: 1h 31m 5 12:59 PM EDT [facility] Note: A resident was involved in the service. I attest I examined the relevant preparations for the specimens and confirmed the diagnosis or interpretation. 5 12:59 PM EDT [facility] Clinical Information R91.1 - Lung nodule [ICD-10-CM] 12:59 PM EDT [facility] Fine Needle Aspirate Structure of [...] Tellez MD LAB CYTOLOGY ORDERABLES Final Result [facility] [address] [place] [address] documented in this encounter Visit Diagnoses Diagnosis [...] documented as of this encounter Care Teams General Freight Agent Relationship Specialty Start Date End Date Comfort Siddiqi APRN [address] [place] [address] PCP - General 03/12/25 Km Wooten MD [address] [facility] [address] [place] [address] Consulting Physician Radiation Oncology 02/14/25 documented as of this encounter
--- OUTSIDE RECORDS SUMMARY | 2025-03-12 10:12 | XMS_ITS | Encounter Summary ---
Author Organization [facility] Address [address] [place] [address] Care Team Providers Care Cardio Tech Name Role Phone Km Wooten MD Unavailable [phone] Comfort Siddiqi APRN Primary Care Provider [phone] Encounter Details Date Type Department Care Team (Late st Contact Info) Description 03/12/2025 10:12 AM EDT Anesthesia Event [facility] H Endoscopy [address] [place] [address] Shaun Hanley MD [address] [place] [address] Anesthesia Record Procedure Summary Procedure Name Responsible [...] and Staff Patient location during procedure: OR RIP/MOULD OPERATOR: Palma Marin CRNA Performed: RIP/MOULD OPERATOR Patient Condition Indications for airway management: anesthesia [...] 10:06 AM EDT Anesthesiologist: Shaun Hanley MD RIP/MOULD OPERATOR: Palma Marin CRNA Patient: Carlos Tripp HPI [...] ABG No results found for: PHART , CUS8HQU , PO2ART , SO2ART , BEART , LCL8BOL , HCTART , SODIUMART , POTASSIUMART , POCTCL , POCGLU , IONCALART , LACTATE No results found for: PH , PCO2 , PO2 , U3VNKTWB , BASEEXC , HCTSYR , KSYR , CLSYR , GLUSYR , CAION , LACTATE ECHO No echocardiogram results found for the past 12 months PFTs No results found for: FLA0JCG , HIJ0AISL , YJT2MVW , FVCPRED BP Readings from Last 5 [...] Cardiovascular: Does not have CAD or past [place]. Does not have chest pain. Respiratory: no [...] Comment: Rarely Drug use: Never Cosigned by Shaun Hanley MD at 03/12/2025 11:21 AM EDT Associated attestation - Shaun Hanley MD - 03/12/2025 11:21 AM EDT I agree with the findings and care plan documented in the preprocedure evaluation note. documented in this encounter Plan of Treatment Upcoming Encounters Date Type Department Care Team (Late st Contact Info) Description 04/10/2025 2:10 PM EDT Appointment [facility] Radiation [address] [address] 04/11/2025 2:10 PM EDT Appointment [facility] Radiation [address] [address] 04/12/2025 2:10 PM EDT Appointment [facility] [address] [address] 04/15/2025 2:10 PM EDT Appointment [facility] Radiation [address] [address] 04/16/2025 2:10 PM EDT Appointment [facility] Rad[facility] [address] [address] 04/17/2025 2:10 PM EDT Appointment [facility] Rad[facility] [address] [address] 04/18/2025 2:10 PM EDT Appointment [facility] Radiation [address] [place] [address] 04/19/2025 2:10 PM EDT Appointment [facility] Radiation [address] [phone] 04/22/2025 2:10 PM EDT Appointment [facility] Radiation [address] [phone] 04/23/2025 2:10 PM EDT Appointment [facility] Radiation [address] [phone] 04/24/2025 2:10 PM EDT Appointment [facility] Radiation [address] [place] [phone] documented as of this encounter Goals Goal Patient Goal Type Associated Problems Recent Progress Patient-Stated? Author Autogenerat ed Goal Care Plan Autogenerated Problem No Lisa Johnston documented as of this encounter Procedures Procedure Name Priority Date/Time Associated Diagnosis Comments PB ANESTHESIA PLACEHOLDER Routine 03/12/2025 10:22 AM EDT CA AN ELECTIVE ENDOTRACHEAL AIRWAY Routine 03/12/2025 10:22 AM EDT documented in this encounter Results * CA AN ELECTIVE ENDOTRACHEAL AIRWAY, PB ANESTHESIA PLACEHOLDER (03/12/2025 10:22 AM EDT) Narrative Palma Marin CRNA - 03/12/2025 10:22 AM EDT Palma Marin CRNA 03/12/2025 10:32 AM Airway Date/Time: 03/12/2025 10:22 AM Reason: elective Airway not difficult General Information and Staff Patient location during procedure: OR RIP/MOULD OPERATOR: Palma Marin CRNA Performed: TEDDY Patient Condition Indications for airway management: anesthesia [...] (ZeMuron) injection Intravenous, As needed, Starting on e 03/12/25 at 1017, Until Tue03/12/25 at 1139, Routine, Anesthesia Intraprocedure Given 03/12/2025 10:58 AM EDT 25 mg Given 03/12/2025 10:24 AM EDT 45 mg Given 03/12/2025 10:17 AM EDT 5 mg succinylcholine (Anectine) injection Intravenous, As needed, Starting on e 03/12/25 at 1018, Until Tue03/12/25 at 1139, Routine, [...] documented as of this encounter Care Teams Cardio Tech Relationship Specialty Start Date End Date Comfort Siddiqi APRN [address] [place] [address] PCP - General 03/12/25 Km Wooten MD [address] [facility] [address] [place] [address] Consulting Physician Radiation Oncology 02/14/25 documented as of this encounter
--- OUTSIDE RECORDS SUMMARY | 2025-03-15 09:00 | XMS_ITS | Encounter Summary ---
Author Organization [facility] Address [address] [place] [address] Care Team Providers Care Honey Extractor Name Role Phone Km Wooten MD Unavailable [phone] Comfort Siddiqi APRN Primary Care Provider [phone] Reason for Visit * Reason Comments Adenopathy Encounter Details Date Type Department Care Team ([facility] Contact Info) Description 03/15/2025 9:00 AM EDT Office Visit Pav CC Head, Neck & Respiratory [address] [place] [address] Deepak Haider MD [address] [place] [address] Malignant neoplasm of rectum (CMS/HCC) [...] Patient confirms they are physically located in [place]? Yes If the patient is not physically located in [place], the provider has confirmed with [facility] thatthe provider is authorized to provide services in patient's stated location? N/A Provider Location: [facility] facility Audio and video or audio only? Audio and video Total visit time: 10 minutes INTERVENTIONAL PULMONARY FOLLOW-UP OUTPATIENT NOTE: Patient ID/Chief Complaint: .Carlos Tripp is a 55 y.o. male presenting for follow up for mediastinal adenopathy. History of Present Illness: Carlos Tripp is a 55 y.o. male with history of lower rectum adenoca, Stage III cT3 cN2a [id number] 02/05/25. CT chest on showed lymph nodes [...] History Administered Date(s) Administered Moderna COVID-19 Vaccine (Mattress Stuffer) 12+ years 10/11/2020, 11/08/2020, 06/24/2021 Physical Examination: Vital Signs: Weight 126 kg (277 lb). Review of Data: Fine needle aspiration: [id number] Order: [id number] Collected 03/12/2025 10:43 Status: Final result Dx: [...] developed by and are performed at the [facility], [address] [place] [address]. All tests reported here, except those addressing [...] PAV CC Radiation [address] [address] 04/11/2025 2:10 PM EDT Appointment PAV CC Radiation [address] [address] 04/12/2025 2:10 PM EDT Appointment PAV CC Radiation [address] [address] 04/15/2025 2:10 PM EDT Appointment PAV CC Radiation [address] [address] 04/16/2025 2:10 PM EDT Appointment PAV CC Radiation [address] [address] 04/17/2025 2:10 PM EDT Appointment PAV CC Radiation [address] [address] 04/18/2025 2:10 PM EDT Appointment PAV CC Radiation [address] [address] 04/19/2025 2:10 PM EDT Appointment PAV CC Radiation [address] WH[address]A [place] [address] 04/22/2025 2:10 PM EDT Appointment PAV CC Radiation [address] MN[address]Z [place] [address] 04/23/2025 2:10 PM EDT Appointment PAV CC Radiation [address] [id number] [place] [address] 04/24/2025 2:10 PM EDT Appointment PAV CC Radiation [address] [id number] [place] [address] documented as of this encounter Goals Goal [...] documented as of this encounter Care Teams Honey Extractor Relationship Specialty Start Date End Date Comfort Siddiqi APRN [address] [place] [address] PCP - General 03/12/25 Km Wooten MD 800 [facility] [address] [place] [address] Consulting Physician Radiation Oncology 02/14/25 documented as of this encounter
--- OUTSIDE RECORDS SUMMARY | 2025-03-18 08:34 | XMS_ITS | Encounter Summary ---
Author Organization Healthcare Address [address] [id number] Care Team Providers Care Edi Programmer Analyst Name Role Phone Km Wooten MD Unavailable [phone] Comfort Siddiqi APRN Primary Care Provider [phone] Encounter Details Date Type Department Care Team (Latest Contact Info) Description 03/18/2025 8:34 AM EDT - 03/18/2025 11:59 PM EDT Hospital Encounter PAV CC Radiation [address] [id number] [place] [address] Discharge Disposition: Still a Patient Social History [...] EDT Appointment PAV CC Radiation [address] [address] 04/11/2025 2:10 PM EDT Appointment PAV CC Radiation [address] [address] 04/12/2025 2:10 PM EDT Appointment PAV CC Radiation [address] [address] 04/15/2025 2:10 PM EDT Appointment PAV CC Radiation [address] [address] 04/16/2025 2:10 PM EDT Appointment PAV CC Radiation [address] [address] 04/17/2025 2:10 PM EDT Appointment PAV CC Radiation [address] [address] 04/18/2025 2:10 PM EDT Appointment PAV CC Radiation [address] [address] 04/19/2025 2:10 PM EDT Appointment PAV CC Radiation [address] [address] 04/22/2025 2:10 PM EDT Appointment PAV CC Radiation [address] [address] 04/23/2025 2:10 PM EDT Appointment PAV CC Radiation [id number] [place] [address] 04/24/2025 2:10 PM EDT Appointment PAV CC Radiation [address] [id number] [place] [address] documented as of this encounter Goals Goal [...] documented as of this encounter Care Teams Edi Programmer Analyst Relationship Specialty Start Date End Date Comfort Siddiqi APRN [address] [place] [address] PCP - General 03/12/25 Km Wooten MD [address] [place] [address] Consulting Physician Radiation Oncology 02/14/25 documented as of this encounter
--- OUTSIDE RECORDS SUMMARY | 2025-03-21 13:48 | XMS_ITS | Encounter Summary ---
Author Organization [facility] Address [address] [place] [address] Care Team Providers Care Electrical Electronics Engineer Name Role Phone Km Wooten MD Unavailable [phone] Comfort Siddiqi APRN Primary Care Provider [phone] Encounter Details Date Type Department Care Team (Latest Contact Info) Description 03/21/2025 1:48 PM EDT - 03/21/2025 2:11 PM EDT Hospital Encounter PAV CC Radiation [address] BS[address] [place] [address] Km Wooten MD [address] [place] [address] Discharge Disposition: Still a Patient Social History [...] Appointment PAV CC Radiation [address] [address] 04/11/2025 2:10 PM EDT Appointment PAV CC Radiation [address] [address] 04/12/2025 2:10 PM EDT Appointment PAV CC Radiation [address] [address] 04/15/2025 2:10 PM EDT Appointment PAV CC Radiation [address] [address] 04/16/2025 2:10 PM EDT Appointment PAV CC Radiation [address] [address] 04/17/2025 2:10 PM EDT Appointment PAV CC Radiation [address] [address] 04/18/2025 2:10 PM EDT Appointment PAV CC Radiation [address] [address] 04/19/2025 2:10 PM EDT Appointment PAV CC Radiation [address] [address] 04/22/2025 2:10 PM EDT Appointment PAV CC Radiation [address] [id number] [place] [address] 04/23/2025 2:10 PM EDT Appointment PAV CC Radiation [id number] [place] [address] 04/24/2025 2:10 PM EDT [facility] [address] [address] documented as of this encounter Goals Goal Patient Goal Type Associated Problems Recent Progress Patient-Stated? Author Autogenerat ed Goal Care Plan Autogenerated Problem No Preston Lisa Thayre documented as of this encounter Visit Diagnoses [...] as of this encounter Care Teams Electrical Electronics Engineer Relationship Specialty Start Date End Date Comfort Siddiqi APRN [address] [place] [address] PCP - General 03/12/25 Km Wooten MD [address] [place] [address] C[address]D [place] [address] Consulting Physician Radiation Oncology 02/14/25 documented as of this encounter
--- OUTSIDE RECORDS SUMMARY | 2025-03-21 14:12 | XMS_ITS | Encounter Summary ---
Author Organization [facility] Address [address] [place] [id number] Care Team Providers Care Customer Service Sales Associate Name Role Phone Km Wooten MD Unavailable [phone] Comfort Siddiqi APRN Primary Care Provider [phone] Reason for Visit * Reason Comments OTV Encounter Details Date Type Department Care Team (Latest Contact Info) Description 03/21/2025 2:12 PM EDT - 03/21/2025 11:59 PM EDT Hospital Encounter [facility] [address] OP[address]A [place] [address] Km Wooten MD [address] C114[address] [place] [address] Malignant neoplasm of rectum (CMS/HCC) (Primary Dx) [...] PM EDT Appointment [facility] [address] QQ382A [place] [address] 04/11/2025 2:10 PM EDT Appointment [facility] [address] [id number] [place] [address] 04/12/2025 2:10 PM EDT Appointment [facility]iation [address] [phone] 04/15/2025 2:10 PM EDT Appointment [facility] [address] [address] 04/16/2025 2:10 PM EDT Appointment [facility] [address] [address] 04/17/2025 2:10 PM EDT Appointment [facility]iation [address] [address] 04/18/2025 2:10 PM EDT Appointment [facility]iation [address] [address] 04/19/2025 2:10 PM EDT Appointment [facility] [address] [address] 04/22/2025 2:10 PM EDT Appointment [facility]iation [address] [address] 04/23/2025 2:10 PM EDT Appointment [facility] [address] [address] 04/24/2025 2:10 PM EDT Appointment [facility] Radiation [address] [address] documented as of this encounter Goals Goal Patient Goal Type Associated Problems Recent Progress Patient-Stated? Author Autogenerat ed Goal Care Plan Autogenerated Problem No Lisa Johnston Jeovany documented as of this encounter Visit [...] documented as of this encounter Care Teams Customer Service Sales Associate Relationship Specialty Start Date End Date Devang ComfortTARUN arambula [address] [place] [address] PCP - General 03/12/25 Km Wooten MD [address] [address] Consulting Physician Radiation Oncology 02/14/25 documented as of this encounter
--- OUTSIDE RECORDS SUMMARY | 2025-03-22 13:49 | XMS_ITS | Encounter Summary ---
Author Organization Healthcare Address [address] [id number] Care Team Providers Care Master At Arms Name Role Phone Km Wooten MD Unavailable [phone] Comfort Siddiqi APRN Primary Care Provider [phone] Encounter Details Date Type Department Care Team (Latest Contact Info) Description 03/22/2025 1:49 PM EDT - 03/22/2025 11:59 PM EDT Hospital Encounter [facility] Radiation [address] [id number] [place] [address] Discharge Disposition: Still a Patient Social History [...] EDT Appointment [facility] Radiation [address] [address] 04/11/2025 2:10 PM EDT Appointment [facility] Radiation [address] [address] 04/12/2025 2:10 PM EDT Appointment [facility] Radiation [address] [address] 04/15/2025 2:10 PM EDT Appointment [facility] Radiation [address] [address] 04/16/2025 2:10 PM EDT Appointment [facility] Radiation [address] [address] 04/17/2025 2:10 PM EDT Appointment [facility] Radiation [address] [address] 04/18/2025 2:10 PM EDT Appointment [facility] Radiation [address] [address] 04/19/2025 2:10 PM EDT Appointment [facility] Radiation [address] [address] 04/22/2025 2:10 PM EDT Appointment [facility] Radiation [address] [address] 04/23/2025 2:10 PM EDT Appointment [facility] Radiation [address] BX217X [place] [address] 04/24/2025 2:10 PM EDT Appointment [facility] Radiation [address] [id number] [place] [address] documented as of this encounter Goals Goal [...] documented as of this encounter Care Teams Master At Arms Relationship Specialty Start Date End Date Comfort Siddiqi APRN [address] [place] [address] PCP - General 03/12/25 Km Wooten MD [address] Buzz C114D [place] [address] Consulting Physician Radiation Oncology 02/14/25 documented as of this encounter
--- OUTSIDE RECORDS SUMMARY | 2025-03-25 05:30 | XMS_ITS | Encounter Summary ---
Author Organization Healthcare Address [address] [id number] Care Team Providers Care Research Staff Member Name Role Phone Km Wooten MD Unavailable [phone] Comfort Siddiqi APRN Primary Care Provider Encounter Details Date Type Department Care Team (Latest Contact Info) Description 03/25/2025 5:30 AM EDT - 03/25/2025 1:34 PM EDT Hospital Encounter [facility] [address] [id number] [place] [address] Discharge Disposition: Still a Patient Social History [...] EDT Appointment [facility] [address] [address] 04/11/2025 2:10 PM EDT Appointment [facility] [address] [address] 04/12/2025 2:10 PM EDT Appointment [facility] [address] [address] 04/15/2025 2:10 PM EDT Appointment [facility] [address] [address] 04/16/2025 2:10 PM EDT Appointment [facility] [address] [address] 04/17/2025 2:10 PM EDT Appointment [facility] [address] [address] 04/18/2025 2:10 PM EDT Appointment [facility] [address] [address] 04/19/2025 2:10 PM EDT Appointment [facility] [address] [address] 04/22/2025 2:10 PM EDT Appointment [facility] [address] [address] 04/23/2025 2:10 PM EDT Appointment [facility] [address] [id number] [place] [address] 04/24/2025 2:10 PM EDT Appointment [facility] [address] [id number] [place] [address] documented as of this encounter Goals Goal [...] documented as of this encounter Care Teams Research Staff Member Relationship Specialty Start Date End Date Comfort Siddiqi APRN [address] [place] [address] PCP - General 03/12/25 Km Wooten MD [address] C[address] [place] [address] Consulting Physician Radiation Oncology 02/14/25 documented as of this encounter
--- OUTSIDE RECORDS SUMMARY | 2025-03-25 13:35 | XMS_ITS | Encounter Summary ---
Author Organization Healthcare Address [address] [id number] Care Team Providers Care Client Evaluator Name Role Phone Km Wooten MD Unavailable [phone] Comfort Siddiqi APRN Primary Care Provider [phone] Encounter Details Date Type Department Care Team (Latest Contact Info) Description 03/25/2025 1:35 PM EDT - 03/25/2025 11:59 PM EDT Hospital Encounter [facility] [address] [id number] [place] [address] Discharge Disposition: Still a Patient Social History [...] EDT Appointment [facility] [address] [address] 04/11/2025 2:10 PM EDT Appointment [facility] [address] [address] 04/12/2025 2:10 PM EDT Appointment [facility] [address] [address] 04/15/2025 2:10 PM EDT Appointment [facility] [address] [address] 04/16/2025 2:10 PM EDT Appointment [facility] [address] [address] 04/17/2025 2:10 PM EDT Appointment [facility] [address] [address] 04/18/2025 2:10 PM EDT Appointment [facility] [address] [address] 04/19/2025 2:10 PM EDT Appointment [facility] [address] [address] 04/22/2025 2:10 PM EDT Appointment [facility] [address] [address] 04/23/2025 2:10 PM EDT Appointment [facility] [address] [id number] [place] [address] 04/24/2025 2:10 PM EDT Appointment [facility] [address] [id number] [place] [address] documented as of this encounter Goals Goal [...] documented as of this encounter Care Teams Client Evaluator Relationship Specialty Start Date End Date Comfort Siddiqi APRN [address] [place] [address] PCP - General 03/12/25 Km Wooten MD [address] [place] [address] Consulting Physician Radiation Oncology 02/14/25 documented as of this encounter
--- OUTSIDE RECORDS SUMMARY | 2025-03-26 13:30 | XMS_ITS | Encounter Summary ---
Author Organization Healthcare Address [address] [id number] Care Team Providers Care Plant Technician Name Role Phone Km Wooten MD Unavailable [phone] Comfort Siddiqi APRN Primary Care Provider [phone] Encounter Details Date Type Department Care Team (Latest Contact Info) Description 03/26/2025 1:30 PM EDT - 03/26/2025 11:59 PM EDT Hospital Encounter [facility] [address] [id number] [place] [address] Discharge Disposition: Still a Patient Social History [...] EDT Appointment [facility] [address] [address] 04/11/2025 2:10 PM EDT Appointment [facility] [address] [address] 04/12/2025 2:10 PM EDT Appointment [facility] [address] [address] 04/15/2025 2:10 PM EDT Appointment [facility] [address] [address] 04/16/2025 2:10 PM EDT Appointment [facility] [address] [address] 04/17/2025 2:10 PM EDT Appointment [facility] [address] [address] 04/18/2025 2:10 PM EDT Appointment [facility] [address] [address] 04/19/2025 2:10 PM EDT Appointment [facility] [address] [address] 04/22/2025 2:10 PM EDT Appointment [facility] [address] [address] 04/23/2025 2:10 PM EDT Appointment [facility] [address] [id number] [place] [address] 04/24/2025 2:10 PM EDT Appointment [facility] [address] [id number] [place] [address] documented as of this encounter Goals Goal [...] documented as of this encounter Care Teams Plant Technician Relationship Specialty Start Date End Date Comfort Siddiqi APRN [address] [place] [address] PCP - General 03/12/25 Km Wooten MD [address] [place] [address] Consulting Physician Radiation Oncology 02/14/25 documented as of this encounter
--- OUTSIDE RECORDS SUMMARY | 2025-03-27 13:38 | XMS_ITS | Encounter Summary ---
Author Organization Healthcare Address [address] [id number] Care Team Providers Care Insurance Service Representative Name Role Phone Km Wooten MD Unavailable [phone] Comfort Siddiqi APRN Primary Care Provider [phone] Encounter Details Date Type Department Care Team (Latest Contact Info) Description 03/27/2025 1:38 PM EDT - 03/27/2025 11:59 PM EDT Hospital Encounter [facility] [address] [id number] [place] [address] Discharge Disposition: Still a Patient Social History [...] EDT Appointment [facility] [address] [address] 04/11/2025 2:10 PM EDT Appointment [facility] [address] [address] 04/12/2025 2:10 PM EDT Appointment [facility] [address] [address] 04/15/2025 2:10 PM EDT Appointment [facility] [address] [address] 04/16/2025 2:10 PM EDT Appointment [facility] [address] [address] 04/17/2025 2:10 PM EDT Appointment [facility] [address] [address] 04/18/2025 2:10 PM EDT Appointment [facility] [address] [address] 04/19/2025 2:10 PM EDT Appointment [facility] [address] [address] 04/22/2025 2:10 PM EDT Appointment [facility] [address] [address] 04/23/2025 2:10 PM EDT Appointment [facility] [id number] [place] [address] 04/24/2025 2:10 PM EDT Appointment [facility] [address] [id number] [place] [address] documented as of this encounter Goals Goal [...] as of this encounter Care Teams Insurance Service Representative Relationship Specialty Start Date End Date Comfort Siddiqi APRN [address] [place] [address] PCP - General 03/12/25 Km Wooten MD [address] [place] [address] Consulting Physician Radiation Oncology 02/14/25 documented as of this encounter
--- OUTSIDE RECORDS SUMMARY | 2025-03-28 13:37 | XMS_ITS | Encounter Summary ---
Author Organization Healthcare Address [address] [id number] Care Team Providers Care Supervisor Pumping Name Role Phone Km Wooten MD Unavailable [phone] Comfort Siddiqi APRN Primary Care Provider [phone] Encounter Details Date Type Department Care Team (Latest Contact Info) Description 03/28/2025 1:37 PM EDT - 03/28/2025 1:53 PM EDT Hospital Encounter [facility] [id number] [place] [address] Discharge Disposition: Still a Patient Social History [...] Appointment [facility] [address] [address] 04/11/2025 2:10 PM EDT Appointment [facility] [address] [address] 04/12/2025 2:10 PM EDT Appointment [facility] [address] [address] 04/15/2025 2:10 PM EDT Appointment [facility] Radiation [address] [address] 04/16/2025 2:10 PM EDT Appointment [facility] [address] [address] 04/17/2025 2:10 PM EDT Appointment [facility] Radiation [address] [address] 04/18/2025 2:10 PM EDT Appointment [facility] [address] [address] 04/19/2025 2:10 PM EDT Appointment [facility] [address] [address] 04/22/2025 2:10 PM EDT Appointment [facility] [address] [address] 04/23/2025 2:10 PM EDT Appointment [facility] Rad[facility] [id number] [place] [address] 04/24/2025 2:10 PM EDT Appointment [facility] [address] [id number] [place] [address] documented as of this encounter Goals Goal [...] as of this encounter Care Teams Supervisor Pumping Relationship Specialty Start Date End Date Comfort Siddiqi APRN [address] [place] [address] PCP - General 03/12/25 Km Wooten MD [address] [place] [address] Consulting Physician Radiation Oncology 02/14/25 documented as of this encounter
--- OUTSIDE RECORDS SUMMARY | 2025-03-28 13:54 | XMS_ITS | Encounter Summary ---
Author Organization [facility] Address [address] [id number] Care Team Providers Care Unit Control Worker Name Role Phone Km Wooten MD Unavailable [phone] Comfort Siddiqi APRN Primary Care Provider [phone] Reason for Visit * Reason Comments OTV Encounter Details Date Type Department Care Team (Latest Contact Info) Description 03/28/2025 1:54 PM EDT - 03/28/2025 11:59 PM EDT Hospital Encounter [facility] [address] [id number] [place] [address] Km Wooten MD [address] [place] [address] Malignant neoplasm of rectum (CMS/HCC) (Primary Dx) [...] Tripp is a 55 y.o. male with [id number] lower rectal adenocarcinoma receiving induction chemoradiation Radiation [...] radiation therapy as planned. Km Wooten MD Planner Chief [facility] Department [place] [address] documented in this encounter Plan of Treatment Upcoming Encounters Date Type Department Care Team (Late st Contact Info) Description 04/10/2025 2:10 PM EDT Appointment [facility]iation [address] [phone] 04/11/2025 2:10 PM EDT Appointment [facility] Radiation [address] [phone] 04/12/2025 2:10 PM EDT Appointment [facility]iation [address] [address] 04/15/2025 2:10 PM EDT Appointment [facility] Radiation [address] [address] 04/16/2025 2:10 PM EDT Appointment [facility] Radiation [address] [phone] 04/17/2025 2:10 PM EDT Appointment [facility] Radiation [address] [address] 04/18/2025 2:10 PM EDT Appointment [facility] Radiation [address] [phone] 04/19/2025 2:10 PM EDT Appointment [facility] Radiation [address] [address] 04/22/2025 2:10 PM EDT Appointment [facility] Radiation [address] [phone] 04/23/2025 2:10 PM EDT Appointment [facility] Radiation [address] [address] 04/24/2025 2:10 PM EDT Appointment [facility] Radiation [address] [phone] documented as of this encounter Goals Goal [...] documented as of this encounter Care Teams Unit Control Worker Relationship Specialty Start Date End Date Comfort Siddiqi APRN [address] [place] [address] PCP - General 03/12/25 Km Wooten MD 800 [facility] [address] [place] [address] Consulting Physician Radiation Oncology 02/14/25 documented as of this encounter
--- OUTSIDE RECORDS SUMMARY | 2025-03-29 13:25 | XMS_ITS | Encounter Summary ---
Author Organization [facility] Address [address] [id number] Care Team Providers Care Dining Room Tables Set Up Attendant Name Role Phone Km Wooten MD Unavailable [phone] Comfort Siddiqi APRN Primary Care Provider [phone] Encounter Details Date Type Department Care Team (Latest Contact Info) Description 03/29/2025 1:25 PM EDT - 03/29/2025 11:59 PM EDT Hospital Encounter [facility] [address] [id number] [place] [address] Discharge Disposition: Still a Patient Social History [...] Appointment [facility] [address] [address] 04/11/2025 2:10 PM EDT Appointment [facility] [address] [address] 04/12/2025 2:10 PM EDT Appointment [facility] [address] [address] 04/15/2025 2:10 PM EDT Appointment [facility] [address] [address] 04/16/2025 2:10 PM EDT Appointment [facility] [address] [address] 04/17/2025 2:10 PM EDT Appointment [facility] [address] [address] 04/18/2025 2:10 PM EDT Appointment [facility] [address] [address] 04/19/2025 2:10 PM EDT Appointment [facility] [address] [address] 04/22/2025 2:10 PM EDT Appointment [facility] 800 [facility]. [id number] [place] [address] 04/23/2025 2:10 PM EDT Appointment [facility] 800 [facility]. [id number] [place] [address] 04/24/2025 2:10 PM EDT Appointment [facility] 800 [facility] [address] documented as of this encounter Goals Goal [...] documented as of this encounter Care Teams Dining Room Tables Set Up Attendant Relationship Specialty Start Date End Date Comfort Siddiqi APRN [address] [place] [address] PCP - General 03/12/25 Km Wooten MD [address] [place] [address] C114D [place] [address] Consulting Physician Radiation Oncology 02/14/25 documented as of this encounter
--- OUTSIDE RECORDS SUMMARY | 2025-04-01 05:30 | XMS_ITS | Encounter Summary ---
Author Organization [facility] Address [address] [id number] Care Team Providers Care Supervisor Assembly And Packing Name Role Phone Km Wooten MD Unavailable [phone] Comfort Siddiqi APRN Primary Care Provider [phone] Encounter Details Date Type Department Care Team (Latest Contact Info) Description 04/01/2025 5:30 AM EDT - 04/01/2025 1:40 PM EDT Hospital Encounter [facility] [address] [id number] [place] [address] Discharge Disposition: Still a Patient Social History [...] EDT Appointment [facility] [address] [address] 04/11/2025 2:10 PM EDT Appointment [facility] [address] [address] 04/12/2025 2:10 PM EDT Appointment [facility] Rad[facility] [address] [address] 04/15/2025 2:10 PM EDT Appointment [facility] [address] [address] 04/16/2025 2:10 PM EDT Appointment [facility] [address] [address] 04/17/2025 2:10 PM EDT Appointment [facility] [address] [address] 04/18/2025 2:10 PM EDT Appointment [facility] [address] [address] 04/19/2025 2:10 PM EDT Appointment [facility] [address] [address] 04/22/2025 2:10 PM EDT Appointment [facility] Radiation 800 [facility]. [id number] [place] [address] 04/23/2025 2:10 PM EDT Appointment [facility] Radiation 800 [facility]. [id number] [place] [address] 04/24/2025 2:10 PM EDT Appointment [facility] Radiation 800 [facility] [address] documented as of this encounter Goals Goal [...] as of this encounter Care Teams Supervisor Assembly And Packing Relationship Specialty Start Date End Date Comfort Siddiqi APRN [address] [place] [address] PCP - General 03/12/25 Km Wooten MD [address] [place] [address] C114D [place] [address] Consulting Physician Radiation Oncology 02/14/25 documented as of this encounter
--- OUTSIDE RECORDS SUMMARY | 2025-04-01 13:41 | XMS_ITS | Encounter Summary ---
Author Organization [facility] Address [address] [id number] Care Team Providers Care Metal Patternmaker Name Role Phone Km Wooten MD Unavailable [phone] Comfort Siddiqi APRN Primary Care Provider [phone] Encounter Details Date Type Department Care Team (Latest Contact Info) Description 04/01/2025 1:41 PM EDT - 04/01/2025 11:59 PM EDT Hospital Encounter [facility] [address] [id number] [place] [address] Discharge Disposition: Still a Patient Social History [...] Appointment [facility] Radiation [address] [address] 04/11/2025 2:10 PM EDT Appointment [facility] [address] [address] 04/12/2025 2:10 PM EDT Appointment [facility] Radiation [address] [address] 04/15/2025 2:10 PM EDT Appointment [facility] Radiation [address] [address] 04/16/2025 2:10 PM EDT Appointment [facility] Rad[facility] [address] [address] 04/17/2025 2:10 PM EDT Appointment [facility] [address] [address] 04/18/2025 2:10 PM EDT Appointment [facility] [address] [address] 04/19/2025 2:10 PM EDT Appointment [facility] Radiation [address] [address] 04/22/2025 2:10 PM EDT Appointment P[facility] CC Radiation 800 [facility]. [id number] [place] [address] 04/23/2025 2:10 PM EDT Appointment P[facility] CC Radiation 800 [facility]. [id number] [place] [address] 04/24/2025 2:10 PM EDT Appointment P[facility] CC Radiation 800 [facility]. [address] [address] documented as of this encounter Goals Goal [...] as of this encounter Care Teams Metal Patternmaker Relationship Specialty Start Date End Date Comfort Siddiqi APRN [address] [place] [address] PCP - General 03/12/25 Km Wooten MD [address] [place] [address] C114D [place] [address] Consulting Physician Radiation Oncology 02/14/25 documented as of this encounter
--- OUTSIDE RECORDS SUMMARY | 2025-04-02 13:58 | XMS_ITS | Encounter Summary ---
Author Organization [facility] Address [address] [id number] Care Team Providers Care Metal Bonder Name Role Phone Km Wooten MD Unavailable [phone] Comfort Siddiqi APRN Primary Care Provider [phone] Encounter Details Date Type Department Care Team (Latest Contact Info) Description 04/02/2025 1:58 PM EDT - 04/02/2025 11:59 PM EDT Hospital Encounter [facility] [address] [id number] [place] [address] Discharge Disposition: Still a Patient Social History [...] Appointment [facility] [address] [address] 04/11/2025 2:10 PM EDT Appointment [facility] [address] [address] 04/12/2025 2:10 PM EDT Appointment [facility] [address] [address] 04/15/2025 2:10 PM EDT Appointment [facility] [address] [address] 04/16/2025 2:10 PM EDT Appointment [facility] [address] [address] 04/17/2025 2:10 PM EDT Appointment [facility] [address] [address] 04/18/2025 2:10 PM EDT Appointment [facility] [address] [address] 04/19/2025 2:10 PM EDT Appointment [facility] [address] [address] 04/22/2025 2:10 PM EDT Appointment [facility] 800 [facility] [id number] [place] [address] 04/23/2025 2:10 PM EDT Appointment [facility] 800 [facility] [id number] [place] [address] 04/24/2025 2:10 PM EDT Appointment [facility] 800 [facility] [address] documented as of this encounter Goals Goal [...] as of this encounter Care Teams Metal Bonder Relationship Specialty Start Date End Date Comfort Siddiqi APRN [address] [place] [address] PCP - General 03/12/25 Km Wooten MD [address] [place] [address] C114D [place] [address] Consulting Physician Radiation Oncology 02/14/25 documented as of this encounter
--- OUTSIDE RECORDS SUMMARY | 2025-04-03 13:29 | XMS_ITS | Encounter Summary ---
Author Organization Healthcare Address [address] [id number] Care Team Providers Care Physician Office Nurse Name Role Phone mK Wooten MD Unavailable [phone] Comfort Siddiqi APRN Primary Care Provider [phone] Encounter Details Date Type Department Care Team (Late st Contact Info) Description 04/03/2025 1:29 PM EDT Hospital Encounter [facility] [address] [id number] [place] [address] Social History Tobacco Use Types Packs/Day Years [...] Department Care Team (Late Contact Info) Description 04/10/2025 2:10 PM EDT Appointment [facility] [address] [place] [address] 04/11/2025 2:10 PM EDT Appointment [facility] [address] [place] [address] 04/12/2025 2:10 PM EDT Appointment [facility] [address] [address] 04/15/2025 2:10 PM EDT Appointment [facility] [address] [address] 04/16/2025 2:10 PM EDT Appointment [facility] [address] [address] 04/17/2025 2:10 PM EDT Appointment [facility] [address] [address] 04/18/2025 2:10 PM EDT Appointment [facility] [address] [address] 04/19/2025 2:10 PM EDT Appointment [facility] [address] [address] 04/22/2025 2:10 PM EDT Appointment [facility] [address] [address] 04/23/2025 2:10 PM EDT Appointment [facility] [address] [address] 04/24/2025 2:10 PM EDT Appointment [facility] [address] [place] [address] documented as of this encounter Goals Goal [...] documented as of this encounter Care Teams Physician Office Nurse Relationship Specialty Start Date End Date Comfort Siddiqi APRN [address] [place] [address] PCP - General 03/12/25 Km Wooten MD [address] [place] [phone] Consulting Physician Radiation Oncology 02/14/25 documented as of this encounter
--- OUTSIDE RECORDS SUMMARY | 2025-04-04 13:47 | XMS_ITS | Encounter Summary ---
Author Organization Healthcare Address [address] [id number] Care Team Providers Care Summer Law Clerk Name Role Phone Km Wooten MD Unavailable [phone] Comfort Siddiqi APRN Primary Care Provider [phone] Encounter Details Date Type Department Care Team (Late st Contact Info) Description 04/04/2025 1:47 PM EDT Hospital Encounter [facility] [address] [id number] [place] [address] Social History Tobacco Use Types Packs/Day Years [...] Appointment [facility] [address] [place] [address] 04/11/2025 2:10 PM EDT Appointment [facility] [address] [place] [address] 04/12/2025 2:10 PM EDT Appointment [facility] [address] [address] 04/15/2025 2:10 PM EDT Appointment [facility] [address] [address] 04/16/2025 2:10 PM EDT Appointment [facility] [address] [address] [address] 04/17/2025 2:10 PM EDT Appointment [facility] [address] [address] 04/18/2025 2:10 PM EDT Appointment [facility] [address] [address] 04/19/2025 2:10 PM EDT Appointment [facility] [address] [address] 04/22/2025 2:10 PM EDT Appointment [facility] [address] [address] 04/23/2025 2:10 PM EDT Appointment [facility] [address] [address] 04/24/2025 2:10 PM EDT Appointment [facility] [address] [place] [address] [address] documented as of this encounter Goals Goal [...] documented as of this encounter Care Teams Summer Law Clerk Relationship Specialty Start Date End Date Comfort Siddiqi APRN [address] [place] [address] PCP - General 03/12/25 Km Wooten MD [address] [place] [phone] Consulting Physician Radiation Oncology 02/14/25 documented as of this encounter
--- OUTSIDE RECORDS SUMMARY | 2025-04-04 13:53 | XMS_ITS | Encounter Summary ---
Author Organization [facility] Address [address] [place] [address] Care Team Providers Care Casino Floor Supervisor Name Role Phone Km Wooten MD Unavailable [phone] Comfort Siddiqi APRN Primary Care Provider [phone] Reason for Visit * Reason Comments OTV Encounter Details Date Type Department Care Team (Latest Contact Info) Description 04/04/2025 1:53 PM EDT Hospital Encounter [facility] [address] PH472B [place] [address] Nancy Stanley MD [address] C114[address] [place] [address] Malignant neoplasm of rectum (CMS/HCC) (Primary Dx) [...] (cT3, cN2a, cM0) - Unsigned HPI: Carlos rTipp is a 55 y.o. male with [id number] lower rectal adenocarcinoma receiving induction chemoradiation Radiation [...] [place] MD, PGY-3 Resident Physician, Radiation Oncology [facility] Pager: [phone] \ Cosigned by Nancy Stanley MD at [...] Appointment [facility] [address] [address] 04/11/2025 2:10 PM EDT Appointment [facility] [address] [place], [place] [address] 04/12/2025 2:10 PM EDT Appointment [facility] [address] [place], [place] [address] 04/15/2025 2:10 PM EDT Appointment [facility] [address] [place], [place] [address] 04/16/2025 2:10 PM EDT Appointment [facility] [address] [address] 04/17/2025 2:10 PM EDT Appointment [facility] [address] [address] 04/18/2025 2:10 PM EDT Appointment [facility] [address] [address] 04/19/2025 2:10 PM EDT Appointment [facility] [address] [address] 04/22/2025 2:10 PM EDT Appointment [facility] [address] [address] 04/23/2025 2:10 PM EDT Appointment [facility] [address] [address] 04/24/2025 2:10 PM EDT Appointment [facility] [address] [address] documented as of this encounter Goals Goal [...] documented as of this encounter Care Teams Casino Floor Supervisor Relationship Specialty Start Date End Date Comfort Siddiqi APRN [address] [place] [address] PCP - General 03/12/25 Km Wooten MD [address] [id number] [place] [address] Consulting Physician Radiation Oncology 02/14/25 documented as of this encounter
--- OUTSIDE RECORDS SUMMARY | 2025-04-05 14:06 | XMS_ITS | Encounter Summary ---
Author Organization Healthcare Address [address] [id number] Care Team Providers Care Filter Changing Technician Name Role Phone Km Wooten MD Unavailable [phone] Comfort Siddiqi APRN Primary Care Provider [phone] Encounter Details Date Type Department Care Team (Late Contact Info) Description 04/05/2025 2:06 PM EDT Hospital Encounter [facility] [address] [id number] [place] [address] Social History Tobacco Use Types Packs/Day Years [...] Appointment [facility] [address] [place] [address] 04/11/2025 2:10 PM EDT Appointment [facility] [address] [place] [address] 04/12/2025 2:10 PM EDT Appointment [facility] [address] [address] 04/15/2025 2:10 PM EDT Appointment [facility] [address] [address] 04/16/2025 2:10 PM EDT Appointment [facility] [address] [place] [address] 04/17/2025 2:10 PM EDT Appointment [facility] [address] [place] [address] 04/18/2025 2:10 PM EDT Appointment [facility] [address] [address] 04/19/2025 2:10 PM EDT Appointment [facility] [address] [address] 04/22/2025 2:10 PM EDT Appointment [facility] [address] [address] 04/23/2025 2:10 PM EDT Appointment [facility] [address] [address] 04/24/2025 2:10 PM EDT Appointment [facility] [address] [address] documented as of this encounter Goals Goal [...] documented as of this encounter Care Teams Filter Changing Technician Relationship Specialty Start Date End Date Comfort Siddiqi APRN [address] [address] PCP - General 03/12/25 Km Wooten MD [address] [place] [phone] Consulting Physician Radiation Oncology 02/14/25 documented as of this encounter
--- OUTSIDE RECORDS SUMMARY | 2025-04-08 05:30 | XMS_ITS | Encounter Summary ---
Author Organization Healthcare Address [address] [id number] Care Team Providers Care Photographic Reproduction Technician Name Role Phone Km Wooten MD Unavailable [phone] Comfort Siddiqi APRN Primary Care Provider [phone] Encounter Details Date Type Department Care Team (Late Contact Info) Description 04/08/2025 5:30 AM EDT Hospital Encounter [facility] [address] [id number] [place] [address] Arrived Social History Tobacco Use Types Packs/Day [...] Appointment [facility] [address] [place] [address] 04/11/2025 2:10 PM EDT Appointment [facility] [address] [place] [address] 04/12/2025 2:10 PM EDT Appointment [facility] [address] [address] 04/15/2025 2:10 PM EDT Appointment [facility] [address] [place] [address] 04/16/2025 2:10 PM EDT Appointment [facility] [address] [place] [address] 04/17/2025 2:10 PM EDT Appointment [facility] [address] [address] 04/18/2025 2:10 PM EDT Appointment [facility] [address] [address] 04/19/2025 2:10 PM EDT Appointment [facility] [address] [address] 04/22/2025 2:10 PM EDT Appointment [facility] [address] [address] 04/23/2025 2:10 PM EDT Appointment [facility] [address] [place] [address] 04/24/2025 2:10 PM EDT Appointment [facility] [address] [address] documented as of this encounter Goals Goal [...] documented as of this encounter Care Teams Photographic Reproduction Technician Relationship Specialty Start Date End Date Comfort Siddiqi APRN [address] [place] [address] PCP - General 03/12/25 Km Wooten MD [address] [place] [phone] Consulting Physician Radiation Oncology 02/14/25 documented as of this encounter
--- OUTSIDE RECORDS SUMMARY | 2025-04-08 13:38 | XMS_ITS | Encounter Summary ---
Author Organization Healthcare Address [address] [id number] Care Team Providers Care Employee Welfare Manager Name Role Phone Km Wooten MD Unavailable [phone] Comfort Siddiqi APRN Primary Care Provider [phone] Encounter Details Date Type Department Care Team (Late st Contact Info) Description 04/08/2025 1:38 PM EDT Hospital Encounter [facility] [address] CP[address] [place] [address] Social History Tobacco Use Types Packs/Day Years [...] Appointment [facility] [address] [place] [address] 04/11/2025 2:10 PM EDT Appointment [facility] [address] [place] [address] 04/12/2025 2:10 PM EDT Appointment [facility] [address] [address] 04/15/2025 2:10 PM EDT Appointment [facility] [address] [address] 04/16/2025 2:10 PM EDT Appointment [facility] [address] [address] 04/17/2025 2:10 PM EDT Appointment [facility] [address] [address] 04/18/2025 2:10 PM EDT Appointment [facility] [address] [address] 04/19/2025 2:10 PM EDT Appointment [facility] [address] [address] 04/22/2025 2:10 PM EDT Appointment [facility] [address] [address] 04/23/2025 2:10 PM EDT Appointment [facility] [address] [address] 04/24/2025 2:10 PM EDT Appointment [facility] [address] [address] documented as of this encounter Goals Goal [...] documented as of this encounter Care Teams Employee Welfare Manager Relationship Specialty Start Date End Date Comfort Siddiqi APRN [address] [place] [address] PCP - General 03/12/25 Km Wooten MD [address] [place] [phone] Consulting Physician Radiation Oncology 02/14/25 documented as of this encounter
--- OUTSIDE RECORDS SUMMARY | 2025-04-09 13:45 | XMS_ITS | Encounter Summary ---
Author Organization Healthcare Address [address] [id number] Care Team Providers Care Mold Maker Name Role Phone mK Wooten MD Unavailable [phone] Comfort Siddiqi APRN Primary Care Provider [phone] Encounter Details Date Type Department Care Team (Late st Contact Info) Description 04/09/2025 1:45 PM EDT Hospital Encounter [facility] [address] PK140M [place] [address] Social History Tobacco Use Types Packs/Day Years [...] Appointment [facility] [address] [place] [address] 04/11/2025 2:10 PM EDT Appointment [facility] [address] [place] [address] 04/12/2025 2:10 PM EDT Appointment [facility] [address] [address] 04/15/2025 2:10 PM EDT Appointment [facility] [address] [address] 04/16/2025 2:10 PM EDT Appointment [facility] [address] [address] 04/17/2025 2:10 PM EDT Appointment [facility] [address] [address] 04/18/2025 2:10 PM EDT Appointment [facility] [address] [address] 04/19/2025 2:10 PM EDT Appointment [facility] [address] [address] 04/22/2025 2:10 PM EDT Appointment [facility] [address] [address] 04/23/2025 2:10 PM EDT Appointment [facility] [address] [address] 04/24/2025 2:10 PM EDT Appointment [facility] [address] [place] [address] documented as of this encounter Goals Goal [...] documented as of this encounter Care Teams Mold Maker Relationship Specialty Start Date End Date Comfort Siddiqi APRN [address] [place] [address] PCP - General 03/12/25 Km Wooten MD [address] [place] [phone] Consulting Physician Radiation Oncology 02/14/25 documented as of this encounter
--- NOTE | 2025-04-10 08:40 | PC.NURSE ---
0840-luca burrell collected labs via venipuncture stick with butterfly needle in right ac.pt to d/c home.
--- OUTSIDE RECORDS SUMMARY | 2025-04-10 08:51 | XMS_ITS | Encounter Summary ---
Author Organization Healthcare Address [address] [place] [address] Care Team Providers Care Senior Communications Engineer Name Role Phone Km Wooten MD Unavailable [phone] Comfort Siddiqi APRN Primary Care Provider [phone] Encounter Details Date Type Department Care Team (Late st Contact Info) Description 04/09/2025 Orders Only [facility] [address] [id number] [place] [address] Radiation Oncology, Physician, [address] [place], [place] [id number] Social History Tobacco Use Types Packs/Day Years [...] EDT Appointment [facility] [address] [address] 04/11/2025 2:10 PM EDT Appointment [facility] [address] [place] [address] 04/12/2025 2:10 PM EDT Appointment [facility] [address] [place] [address] 04/15/2025 2:10 PM EDT Appointment [facility] [address] [place] [address] 04/16/2025 2:10 PM EDT Appointment [facility] [address] [place] [address] 04/17/2025 2:10 PM EDT Appointment [facility] [address] [place] [address] 04/18/2025 2:10 PM EDT Appointment [facility] [address] [place] [address] 04/19/2025 2:10 PM EDT Appointment [facility] [address] [phone] 04/22/2025 2:10 PM EDT Appointment [facility] [address] 04/23/2025 2:10 PM EDT Appointment [facility] [address] [phone] 04/24/2025 2:10 PM EDT Appointment [facility] [address] [phone] documented as of this encounter Goals Goal Patient Goal Type Associated Problems Recent Progress Patient-Stated? Author Autogenerat ed Goal Care Plan Autogenerated Problem No Lisa Johnston documented as of this encounter Procedures Procedure Name Priority Date/Time Associated Diagnosis Comments RAD ONC ARIA SESSION SUMMARY Routine 04/09/2025 2:33 PM EDT documented in this encounter Results * Rad Onc Aria Session Summary (04/09/2025 2:33 PM EDT) Course ID C1 ARIA RADIATION ONCOLOGY Course Intent Curative w/chemo ARIA RADIATION ONCOLOGY Course Start Date 03/01/2025 8:45 AM ARIA RADIATION ONCOLOGY Course First Treatment Date 03/21/2025 2:04 PM ARIA RADIATION ONCOLOGY Course Last Treatment Date 04/09/2025 2:31 PM ARIA RADIATION ONCOLOGY Course Elapsed Days 19 ARIA RADIATION ONCOLOGY Reference Point ID Pelvis ARIA RADIATION ONCOLOGY Reference Point Dosage Given to Date [id number] Gy ARIA RADIATION ONCOLOGY Reference Point Session Dosage Given [id number] Gy ARIA RADIATION ONCOLOGY Plan ID A1A8 ARIA RADIATION ONCOLOGY Plan Name Pelvis& inguinals_PT V50 ARIA RADIATION ONCOLOGY Plan Fractions Treated to Date 14 ARIA RADIATION ONCOLOGY Plan Total Fractions Prescribed 25 ARIA RADIATION ONCOLOGY Plan Prescribed Dose Per Fraction 2 Gy ARIA RADIATION ONCOLOGY Plan Total Prescribed Dose 5,000 CGy ARIA RADIATION ONCOLOGY Plan Primary Reference Point Pelvis ARIA RADIATION ONCOLOGY 04/09/2025 2:33 PM EDT Physician Radiation Oncology MD RADIATION ONCOLO GY ORDERABLES Final Result ARIA [...] documented as of this encounter Care Teams Senior Communications Engineer Relationship Specialty Start Date End Date Comfort Siddiqi APRN [address] [place] [address] PCP - General 03/12/25 Km Wooten MD [id number] [place] [address] Consulting Physician Radiation Oncology 02/14/25 documented as of this encounter
--- OUTSIDE RECORDS SUMMARY | 2025-04-10 08:53 | XMS_ITS ---
Author Organization [facility] Address [address] [place] [address] Care Team Providers Care Tug Captain Name Role Phone Km Wooten MD Unavailable [phone] Comfort Siddiqi APRN Primary Care Provider [phone] Active Problems Problem Noted Date Diagnosed Date [...] Treatment Site Technique Goal Episode Provider 03/21/2025 04/09/2025 Bilateral Rectum Consolidative * Linked Problems Rectal cancer Treatment Courses* Course C1 03/21/2025 - 04/09/2025 Treatment Period Fraction Dose Fractions Total Dose Plans Planned Pelvis& inguinals_PTV50 [A1A8] 03/21/2025 - 04/09/2025 200 cGy 5,000 cG y Reference Points Delivered Pelvis 03/21/2025 - 04/09/2025 2,800 cGy
--- OUTSIDE RECORDS SUMMARY | 2025-04-10 08:53 | XMS_ITS | Encounter Summary ---
Author Organization Healthcare Address [address] [place] [address] Care Team Providers Care Senior Accounting Manager Name Role Phone Km Wooten MD Unavailable Comfort Siddiqi APRN Primary Care Provider [phone] Encounter Details Date Type Department Care Team (Late st Contact Info) Description 03/28/2025 Orders Only [facility] [address] [id number] [place] [address] Radiation Oncology, Physician, [address] [place], [place] [id number] Social History Tobacco Use Types Packs/Day Years [...] EDT Appointment [facility] [address] [address] 04/11/2025 2:10 PM EDT Appointment [facility] [address] [place] [address] 04/12/2025 2:10 PM EDT Appointment [facility] [address] [place] [address] 04/15/2025 2:10 PM EDT Appointment [facility] [address] [place] [address] 04/16/2025 2:10 PM EDT Appointment [facility] [address] [place] [address] 04/17/2025 2:10 PM EDT Appointment [facility] [address] [place] [address] 04/18/2025 2:10 PM EDT Appointment [facility] [address] [place] [address] 04/19/2025 2:10 PM EDT Appointment [facility] [address] [place] [phone] 04/22/2025 2:10 PM EDT Appointment [facility] [address] 04/23/2025 2:10 PM EDT Appointment [facility] [address] [phone] 04/24/2025 2:10 PM EDT Appointment [facility] [address] [phone] documented as of this encounter Goals Goal [...] ONCOLOGY Reference Point Dosage Given to Date [id number] Gy ARIA RADIATION ONCOLOGY Reference Point Session Dosage Given [id number] Gy ARIA RADIATION ONCOLOGY Plan ID A1A8 [...] 03/28/2025 1:54 PM EDT Physician Radiation Oncology MD RADIATION [...] as of this encounter Care Teams Senior Accounting Manager Relationship Specialty Start Date End Date Comfort Siddiqi APRN [address] [place] [address] PCP - General 03/12/25 Km Wooten MD [id number] [place] [address] Consulting Physician Radiation Oncology 02/14/25 documented as of this encounter
--- OUTSIDE RECORDS SUMMARY | 2025-04-10 08:53 | XMS_ITS | Encounter Summary ---
Author Organization Healthcare Address [address] [place] [address] Care Team Providers Care Painter Rough Name Role Phone Km Wooten MD Unavailable [phone] Comfort Siddiqi APRN Primary Care Provider [phone] Encounter Details Date Type Department Care Team (Late st Contact Info) Description 03/27/2025 Orders Only [facility] [address] [id number] [place] [address] Radiation Oncology, Physician, [address] [place], [place] [phone] Social History Tobacco Use Types Packs/Day Years [...] [facility] Rad[facility] [address] [address] 04/11/2025 2:10 PM EDT Appointment [facility] [address] [place] [address] 04/12/2025 2:10 PM EDT Appointment [facility] [address] [place] [address] 04/15/2025 2:10 PM EDT Appointment [facility] [address] [place] [address] 04/16/2025 2:10 PM EDT Appointment [facility] [address] [place] [address] 04/17/2025 2:10 PM EDT Appointment [facility] [address] [place] [address] 04/18/2025 2:10 PM EDT Appointment [facility] [address] [place] [address] 04/19/2025 2:10 PM EDT Appointment [facility] [address] [place] [phone] 04/22/2025 2:10 PM EDT Appointment [facility] [address] 04/23/2025 2:10 PM EDT Appointment [facility] [address] [phone] 04/24/2025 2:10 PM EDT Appointment [facility] [address] [phone] documented as of this encounter Goals Goal [...] ONCOLOGY Reference Point Dosage Given to Date [id number] Gy ARIA RADIATION ONCOLOGY Reference Point Session Dosage Given 1.34661004 Gy ARIA RADIATION ONCOLOGY Plan ID A1A8 [...] 03/27/2025 2:10 PM EDT Physician Radiation Oncology MD RADIATION [...] documented as of this encounter Care Teams Painter Rough Relationship Specialty Start Date End Date Comfort Siddiqi APRN [address] [place] [address] PCP - General 03/12/25 Km Wooten MD [id number] [place] [address] Consulting Physician Radiation Oncology 02/14/25 documented as of this encounter
--- OUTSIDE RECORDS SUMMARY | 2025-04-10 08:53 | XMS_ITS | Encounter Summary ---
Author Organization Healthcare Address [address] [place] [address] Care Team Providers Care Professor Of Counseling Name Role Phone Km Wooten MD Unavailable Comfort Siddiqi APRN Primary Care Provider Encounter Details Date Type Department Care Team (Late st Contact Info) Description 04/04/2025 Orders Only [facility] [address] [id number] [place] [address] Radiation Oncology, Physician, [address] [place], [place] [id number] Social History Tobacco Use Types Packs/Day Years [...] EDT Appointment [facility] [address] [address] 04/11/2025 2:10 PM EDT Appointment [facility] Radiation [address] [place] [address] 04/12/2025 2:10 PM EDT Appointment [facility] Rad[facility] [address] [place] [address] 04/15/2025 2:10 PM EDT Appointment [facility] [address] [place] [address] 04/16/2025 2:10 PM EDT Appointment [facility] [address] [place] [address] 04/17/2025 2:10 PM EDT Appointment [facility] Rad[facility] [address] [address] 04/18/2025 2:10 PM EDT Appointment [facility] Radiation [address] [place] [address] 04/19/2025 2:10 PM EDT Appointment [facility] Radiation [address] [place] [phone] 04/22/2025 2:10 PM EDT Appointment [facility] Radiation [address] 04/23/2025 2:10 PM EDT Appointment [facility] Radiation [address] [phone] 04/24/2025 2:10 PM EDT Appointment [facility] [address] [phone] documented as of this encounter Goals Goal Patient Goal Type Associated Problems Recent Progress Patient-Stated? Author Autogenerat ed Goal Care Plan Autogenerated Problem No Lisa Johnston documented as of this encounter Procedures Procedure Name Priority Date/Time Associated Diagnosis Comments RAD ONC ARIA SESSION SUMMARY Routine 04/04/2025 2:31 PM EDT documented in this encounter Results * Rad Onc Aria Session Summary (04/04/2025 2:31 PM EDT) Course ID C1 ARIA RADIATION ONCOLOGY Course Intent Curative w/chemo ARIA RADIATION ONCOLOGY Course Start Date 03/01/2025 8:45 AM ARIA RADIATION ONCOLOGY Course First Treatment Date 03/21/2025 2:04 PM ARIA RADIATION ONCOLOGY Course Last Treatment Date 04/04/2025 2:29 PM ARIA RADIATION ONCOLOGY Course Elapsed Days 14 ARIA RADIATION ONCOLOGY Reference Point ID Pelvis ARIA RADIATION ONCOLOGY Reference Point Dosage Given to Date [id number] Gy ARIA RADIATION ONCOLOGY Reference Point Session Dosage Given [id number] Gy ARIA RADIATION ONCOLOGY Plan ID A1A8 ARIA RADIATION ONCOLOGY Plan Name Pelvis& inguinals_PT V50 ARIA RADIATION ONCOLOGY Plan Fractions Treated to Date 11 ARIA RADIATION ONCOLOGY Plan Total Fractions Prescribed 25 ARIA RADIATION ONCOLOGY Plan Prescribed Dose Per Fraction 2 Gy ARIA RADIATION ONCOLOGY Plan Total Prescribed Dose 5,000 CGy ARIA RADIATION ONCOLOGY Plan Primary Reference Point Pelvis ARIA RADIATION ONCOLOGY 04/04/2025 2:31 PM EDT Physician Radiation Oncology MD RADIATION [...] documented as of this encounter Care Teams Professor Of Counseling Relationship Specialty Start Date End Date Comfort Siddiqi APRN [address] [place] [address] PCP - General 03/12/25 Km Wooten MD [id number] [place] [address] Consulting Physician Radiation Oncology 02/14/25 documented as of this encounter
--- OUTSIDE RECORDS SUMMARY | 2025-04-10 08:53 | XMS_ITS | Encounter Summary ---
Author Organization [facility] Address [address] [place] [address] Care Team Providers Care Dealership Manager Name Role Phone mK Wooten MD Unavailable [phone] Comfort Siddiqi APRN Primary Care Provider [phone] Encounter Details Date Type Department Care Team [...] Appointment [facility] [address] [id number] [place] [phone] 04/11/2025 2:10 PM EDT Appointment [facility] Radiation [address] 04/12/2025 2:10 PM EDT Appointment [facility] Radiation [address] [phone] 04/15/2025 2:10 PM EDT Appointment [facility] Radiation [address] [place] [phone] 04/16/2025 2:10 PM EDT Appointment [facility] Radiation [address] 04/17/2025 2:10 PM EDT Appointment [facility] Radiation [address] [place] [phone] 04/18/2025 2:10 PM EDT Appointment [facility] Radiation [address] [place] [phone] 04/19/2025 2:10 PM EDT Appointment [facility] Radiation [address] [place] [phone] 04/22/2025 2:10 PM EDT Appointment [facility] Radiation [address] [phone] 04/23/2025 2:10 PM EDT Appointment [facility] Radiation [address] [phone] 04/24/2025 2:10 PM EDT Appointment [facility] Radiation [address] [place] [phone] documented as of this encounter Goals Goal [...] documented as of this encounter Care Teams Dealership Manager Relationship Specialty Start Date End Date Comfort Siddiqi APRN [address] [place] [address] PCP - General 03/12/25 Km Wooten MD [address] [place] [address] Consulting Physician Radiation Oncology 02/14/25 documented as of this encounter
--- OUTSIDE RECORDS SUMMARY | 2025-04-10 08:53 | XMS_ITS | Encounter Summary ---
Author Organization Healthcare Address [address] [place] [address] Care Team Providers Care Glaucoma Specialist Name Role Phone Km Wooten MD Unavailable [phone] Comfort Siddiqi APRN Primary Care Provider Encounter Details Date Type Department Care Team (Late st Contact Info) Description 03/25/2025 Orders Only [facility] Radiation [address] [id number] [place] [address] Radiation Oncology, Physician, [address] [place], [place] [phone] Social History Tobacco Use Types Packs/Day Years [...] EDT Appointment [facility] Radiation [address] [place] [address] 04/11/2025 2:10 PM EDT Appointment [facility] Radiation [address] [place] [address] 04/12/2025 2:10 PM EDT Appointment [facility] Radiation [address] [place] [address] 04/15/2025 2:10 PM EDT Appointment [facility] Radiation [address] [place] [address] 04/16/2025 2:10 PM EDT Appointment [facility] Radiation [address] [place] [address] 04/17/2025 2:10 PM EDT Appointment P[facility] Radiation [address] [place] [address] 04/18/2025 2:10 PM EDT Appointment [facility] Radiation [address] [place] [address] 04/19/2025 2:10 PM EDT Appointment [facility] Radiation [address] [place] [phone] 04/22/2025 2:10 PM EDT Appointment [facility] Radiation [address]0001 04/23/2025 2:10 PM EDT Appointment [facility] Radiation [address] [phone] 04/24/2025 2:10 PM EDT Appointment [facility] Radiation [address] [phone] documented as of this encounter Goals Goal [...] ONCOLOGY Reference Point Dosage Given to Date [id number] Gy ARIA RADIATION ONCOLOGY Reference Point Session Dosage Given [id number] Gy ARIA RADIATION ONCOLOGY Plan ID A1A8 [...] 03/25/2025 2:49 PM EDT Physician Radiation Oncology MD RADIATION [...] documented as of this encounter Care Teams Glaucoma Specialist Relationship Specialty Start Date End Date Comfort Siddiqi APRN [address] [place] [address] PCP - General 03/12/25 Km Wooten MD [address] [place] [id number] [place] [address] Consulting Physician Radiation Oncology 02/14/25 documented as of this encounter
--- OUTSIDE RECORDS SUMMARY | 2025-04-10 08:53 | XMS_ITS | Encounter Summary ---
Author Organization Healthcare Address [address] [place] [address] Care Team Providers Care Sinter Press Operator Name Role Phone Km Wooten MD Unavailable [phone] Comfort Siddiqi APRN Primary Care Provider [phone] Encounter Details Date Type Department Care Team (Late st Contact Info) Description 03/26/2025 Orders Only [facility] Radiation [address] [id number] [place] [address] Radiation Oncology, Physician, [address] [place], [place] [phone] Social History Tobacco Use Types Packs/Day Years [...] EDT Appointment [facility] Radiation [address] [place] [address] 04/11/2025 2:10 PM EDT Appointment P[facility] Radiation [address] [place] [address] 04/12/2025 2:10 PM EDT Appointment [facility] Radiation [address] [place] [address] 04/15/2025 2:10 PM EDT Appointment [facility] Radiation [address] [place] [address] 04/16/2025 2:10 PM EDT Appointment [facility] Radiation [address] [place] [address] 04/17/2025 2:10 PM EDT Appointment [facility] Radiation [address] [place] [address] 04/18/2025 2:10 PM EDT Appointment P[facility] Radiation [address] [place] [address] 04/19/2025 2:10 PM EDT Appointment [facility] Radiation [address] [place] [phone] 04/22/2025 2:10 PM EDT Appointment P[facility] Radiation [address]0001 04/23/2025 2:10 PM EDT Appointment [facility] Radiation [address] [phone] 04/24/2025 2:10 PM EDT Appointment P[facility] Radiation [address] [phone] documented as of this encounter Goals Goal [...] ONCOLOGY Reference Point Dosage Given to Date [id number] Gy ARIA RADIATION ONCOLOGY Reference Point Session Dosage Given 1.47536781 Gy ARIA RADIATION ONCOLOGY Plan ID A1A8 [...] 03/26/2025 1:42 PM EDT Physician Radiation Oncology MD RADIATION [...] documented as of this encounter Care Teams Sinter Press Operator Relationship Specialty Start Date End Date Comfort Siddiqi APRN [address] [place] [address] PCP - General 03/12/25 Km Wooten MD [address] [id number] [place] [address] Consulting Physician Radiation Oncology 02/14/25 documented as of this encounter
--- OUTSIDE RECORDS SUMMARY | 2025-04-10 08:53 | XMS_ITS | Encounter Summary ---
Author Organization [facility] Address [address] [place] [address] Care Team Providers Care Residential Sales Associate Name Role Phone Km Wooten MD Unavailable [phone] Comfort Siddiqi APRN Primary Care Provider [phone] Encounter Details Date Type Department Care Team (Latest Contact Info) Description 04/08/2025 Travel Social History Tobacco Use Types Packs/Day [...] Appointment [facility] Radiation [address] [id number] [place] [phone] 04/11/2025 2:10 PM EDT Appointment [facility] Radiation [address]0001 04/12/2025 2:10 PM EDT Appointment [facility] Radiation [address] [phone] 04/15/2025 2:10 PM EDT Appointment PAV CC Radiation [address] [place] [phone] 04/16/2025 2:10 PM EDT Appointment P[facility] CC Radiation [address]0001 04/17/2025 2:10 PM EDT Appointment PAV CC Radiation [address] [place] [phone] 04/18/2025 2:10 PM EDT Appointment P[facility] Radiation [address] 04/19/2025 2:10 PM EDT Appointment PAV CC Radiation [address] [place] [phone] 04/22/2025 2:10 PM EDT Appointment P[facility] CC Radiation [address] [phone] 04/23/2025 2:10 PM EDT Appointment PAV CC Radiation [address] [phone] 04/24/2025 2:10 PM EDT Appointment [facility] Radiation [address] [place] [phone] documented as of this encounter Goals Goal [...] as of this encounter Care Teams Residential Sales Associate Relationship Specialty Start Date End Date Comfort Siddiqi APRN [address] [place] [address] PCP - General 03/12/25 Km Wooten MD [address] [place] [address] Consulting Physician Radiation Oncology 02/14/25 documented as of this encounter
--- OUTSIDE RECORDS SUMMARY | 2025-04-10 08:53 | XMS_ITS | Encounter Summary ---
Author Organization Healthcare Address [address] [place] [address] Care Team Providers Care Cardiopulmonary Specialist Name Role Phone Km Wotoen MD Unavailable [phone] Comfort Siddiqi APRN Primary Care Provider [phone] Encounter Details Date Type Department Care Team (Late st Contact Info) Description 04/03/2025 Orders Only [facility] Radiation [address] [id number] [place] [address] Radiation Oncology, Physician, [address] [place], [place] [phone] Social History Tobacco Use Types Packs/Day Years [...] EDT Appointment P[facility] Radiation [address] [place] [address] 04/11/2025 2:10 PM EDT Appointment PAV CC Radiation [address] [place] [address] 04/12/2025 2:10 PM EDT Appointment P[facility] CC Radiation [address] [place] [address] 04/15/2025 2:10 PM EDT Appointment PAV CC Radiation [address] [place] [address] 04/16/2025 2:10 PM EDT Appointment PAV CC Radiation [address] [place] [address] 04/17/2025 2:10 PM EDT Appointment PAV CC Radiation [address] [place] [address] 04/18/2025 2:10 PM EDT Appointment PAV CC Radiation [address] [place] [address] 04/19/2025 2:10 PM EDT Appointment PAV CC Radiation [address] [place] [phone] 04/22/2025 2:10 PM EDT Appointment PAV CC Radiation [address]0001 04/23/2025 2:10 PM EDT Appointment P[facility] Radiation [address] [phone] 04/24/2025 2:10 PM EDT Appointment P[facility] CC Radiation [address] [phone] documented as of this encounter Goals Goal Patient Goal Type Associated Problems Recent Progress Patient-Stated? Author Autogenerat ed Goal Care Plan Autogenerated Problem No Lisa Johnston documented as of this encounter Procedures Procedure Name Priority Date/Time Associated Diagnosis Comments RAD ONC ARIA SESSION SUMMARY Routine 04/03/2025 1:41 PM EDT documented in this encounter Results * Rad Onc Aria Session Summary (04/03/2025 1:41 PM EDT) Course ID C1 ARIA RADIATION ONCOLOGY Course Intent Curative w/chemo ARIA RADIATION ONCOLOGY Course Start Date 03/01/2025 8:45 AM ARIA RADIATION ONCOLOGY Course First Treatment Date 03/21/2025 2:04 PM ARIA RADIATION ONCOLOGY Course Last Treatment Date 04/03/2025 1:39 PM ARIA RADIATION ONCOLOGY Course Elapsed Days 13 ARIA RADIATION ONCOLOGY Reference Point ID Pelvis ARIA RADIATION ONCOLOGY Reference Point Dosage Given to Date [id number] Gy ARIA RADIATION ONCOLOGY Reference Point Session Dosage Given [id number] Gy ARIA RADIATION ONCOLOGY Plan ID A1A8 ARIA RADIATION ONCOLOGY Plan Name Pelvis& inguinals_PT V50 ARIA RADIATION ONCOLOGY Plan Fractions Treated to Date 10 ARIA RADIATION ONCOLOGY Plan Total Fractions Prescribed 25 ARIA RADIATION ONCOLOGY Plan Prescribed Dose Per Fraction 2 Gy ARIA RADIATION ONCOLOGY Plan Total Prescribed Dose 5,000 CGy ARIA RADIATION ONCOLOGY Plan Primary Reference Point Pelvis ARIA RADIATION ONCOLOGY 04/03/2025 1:41 PM EDT Physician Radiation Oncology MD RADIATION [...] documented as of this encounter Care Teams Cardiopulmonary Specialist Relationship Specialty Start Date End Date Comfort Siddiqi APRN [address] [place] [address] PCP - General 03/12/25 Km Wooten MD [address] [place] [id number] [place] [address] Consulting Physician Radiation Oncology 02/14/25 documented as of this encounter
--- OUTSIDE RECORDS SUMMARY | 2025-04-10 08:53 | XMS_ITS | Encounter Summary ---
Author Organization Healthcare Address [address] [place] [address] Care Team Providers Care Accounting Systems Analyst Name Role Phone Km Wooten MD Unavailable [phone] Comfort Siddiqi APRN Primary Care Provider [phone] Encounter Details Date Type Department Care Team (Late st Contact Info) Description 04/05/2025 Orders Only PAV [facility] Radiation [address] [id number] [place] [address] Radiation Oncology, Physician, [address] [place], [place] [phone] Social History Tobacco Use Types Packs/Day Years [...] EDT Appointment PAV CC Radiation [address] [place] [address] 04/11/2025 2:10 PM EDT Appointment PAV CC Radiation [address] [place] [address] 04/12/2025 2:10 PM EDT Appointment PAV CC Radiation [address] [place] [address] 04/15/2025 2:10 PM EDT Appointment PAV CC Radiation [address] [place] [address] 04/16/2025 2:10 PM EDT Appointment PAV CC Radiation [address] [place] [address] 04/17/2025 2:10 PM EDT Appointment PAV CC Radiation [address] [place] [address] 04/18/2025 2:10 PM EDT Appointment PAV CC Radiation [address] [place] [address] 04/19/2025 2:10 PM EDT Appointment PAV CC Radiation [address] [place] [phone] 04/22/2025 2:10 PM EDT Appointment PAV CC Radiation [address]0001 04/23/2025 2:10 PM EDT Appointment PAV CC Radiation [address] [phone] 04/24/2025 2:10 PM EDT Appointment PAV CC Radiation [address] [phone] documented as of this encounter Goals Goal Patient Goal Type Associated Problems Recent Progress Patient-Stated? Author Autogenerat ed Goal Care Plan Autogenerated Problem No Lisa Johnston documented as of this encounter Procedures Procedure Name Priority Date/Time Associated Diagnosis Comments RAD ONC ARIA SESSION SUMMARY Routine 04/05/2025 2:21 PM EDT documented in this encounter Results * Rad Onc Aria Session Summary (04/05/2025 2:21 PM EDT) Course ID C1 ARIA RADIATION ONCOLOGY Course Intent Curative w/chemo ARIA RADIATION ONCOLOGY Course Start Date 03/01/2025 8:45 AM ARIA RADIATION ONCOLOGY Course First Treatment Date 03/21/2025 2:04 PM ARIA RADIATION ONCOLOGY Course Last Treatment Date 04/05/2025 2:20 PM ARIA RADIATION ONCOLOGY Course Elapsed Days 15 ARIA RADIATION ONCOLOGY Reference Point ID Pelvis ARIA RADIATION ONCOLOGY Reference Point Dosage Given to Date [id number] Gy ARIA RADIATION ONCOLOGY Reference Point Session Dosage Given [id number] Gy ARIA RADIATION ONCOLOGY Plan ID A1A8 ARIA RADIATION ONCOLOGY Plan Name Pelvis& inguinals_PT V50 ARIA RADIATION ONCOLOGY Plan Fractions Treated to Date 12 ARIA RADIATION ONCOLOGY Plan Total Fractions Prescribed 25 ARIA RADIATION ONCOLOGY Plan Prescribed Dose Per Fraction 2 Gy ARIA RADIATION ONCOLOGY Plan Total Prescribed Dose 5,000 CGy ARIA RADIATION ONCOLOGY Plan Primary Reference Point Pelvis ARIA RADIATION ONCOLOGY 04/05/2025 2:21 PM EDT Physician Radiation Oncology MD RADIATION [...] documented as of this encounter Care Teams Accounting Systems Analyst Relationship Specialty Start Date End Date Comfort Siddiqi APRN [address] [place] [address] PCP - General 03/12/25 Km Wooten MD [address] [place] [id number] [place] [address] Consulting Physician Radiation Oncology 02/14/25 documented as of this encounter
--- OUTSIDE RECORDS SUMMARY | 2025-04-10 08:53 | XMS_ITS | Encounter Summary ---
Author Organization Healthcare Address [address] [place] [address] Care Team Providers Care Cattle Broker Name Role Phone Km Wooten MD Unavailable Comfort Siddiqi APRN Primary Care Provider [phone] Encounter Details Date Type Department Care Team (Late st Contact Info) Description 04/08/2025 Orders Only PAV CC Radiation [address] [id number] [place] [address] Radiation Oncology, Physician, [address] [place], [place] [phone] Social History Tobacco Use Types Packs/Day Years [...] EDT Appointment PAV CC Radiation [address] [place] [address] 04/11/2025 2:10 PM EDT Appointment PAV CC Radiation [address] [place] [address] 04/12/2025 2:10 PM EDT Appointment PAV CC Radiation [address] [place] [address] 04/15/2025 2:10 PM EDT Appointment PAV CC Radiation [address] [place] [address] 04/16/2025 2:10 PM EDT Appointment PAV CC Radiation [address] [place] [place] [address] 04/17/2025 2:10 PM EDT Appointment PAV CC Radiation [address] [place] [address] 04/18/2025 2:10 PM EDT Appointment PAV CC Radiation [address] [place] [address] 04/19/2025 2:10 PM EDT Appointment PAV CC Radiation [address] [place] [phone] 04/22/2025 2:10 PM EDT Appointment PAV CC Radiation [address] 04/23/2025 2:10 PM EDT Appointment PAV CC Radiation [address] [phone] 04/24/2025 2:10 PM EDT Appointment PAV CC Radiation [address] [phone] documented as of this encounter Goals Goal Patient Goal Type Associated Problems Recent Progress Patient-Stated? Author Autogenerat ed Goal Care Plan Autogenerated Problem No Lisa Johnston documented as of this encounter Procedures Procedure Name Priority Date/Time Associated Diagnosis Comments RAD ONC ARIA SESSION SUMMARY Routine 04/08/2025 2:04 PM EDT documented in this encounter Results * Rad Onc Aria Session Summary (04/08/2025 2:04 PM EDT) Course ID C1 ARIA RADIATION ONCOLOGY Course Intent Curative w/chemo ARIA RADIATION ONCOLOGY Course Start Date 03/01/2025 8:45 AM ARIA RADIATION ONCOLOGY Course First Treatment Date 03/21/2025 2:04 PM ARIA RADIATION ONCOLOGY Course Last Treatment Date 04/08/2025 2:03 PM ARIA RADIATION ONCOLOGY Course Elapsed Days 18 ARIA RADIATION ONCOLOGY Reference Point ID Pelvis ARIA RADIATION ONCOLOGY Reference Point Dosage Given to Date [id number] Gy ARIA RADIATION ONCOLOGY Reference Point Session Dosage Given [id number] Gy ARIA RADIATION ONCOLOGY Plan ID A1A8 ARIA RADIATION ONCOLOGY Plan Name Pelvis& inguinals_PT V50 ARIA RADIATION ONCOLOGY Plan Fractions Treated to Date 13 ARIA RADIATION ONCOLOGY Plan Total Fractions Prescribed 25 ARIA RADIATION ONCOLOGY Plan Prescribed Dose Per Fraction 2 Gy ARIA RADIATION ONCOLOGY Plan Total Prescribed Dose 5,000 CGy ARIA RADIATION ONCOLOGY Plan Primary Reference Point Pelvis ARIA RADIATION ONCOLOGY 04/08/2025 2:04 PM EDT Physician Radiation Oncology MD RADIATION [...] documented as of this encounter Care Teams Cattle Broker Relationship Specialty Start Date End Date Comfort Siddiqi APRN [address] [place] [address] PCP - General 03/12/25 Km Wooten MD [address] [place] [id number] [place] [address] Consulting Physician Radiation Oncology 02/14/25 documented as of this encounter
--- OUTSIDE RECORDS SUMMARY | 2025-04-10 08:54 | XMS_ITS | Encounter Summary ---
Author Organization [facility] Address [address] [place] [address] Care Team Providers Care Block Cuber Name Role Phone Tejal Saeed APRN Primary Care Provider [phone] Km Wooten MD Unavailable Encounter Details Date Type Department Care Team (Late st Contact Info) Description 02/20/2025 Telephone [facility] [address] [place] [address] [place] [address] Social History Tobacco Use Types Packs/Day Years [...] appointment made, need PSA lab test, called [facility], she will fax to our office. Susi Bustos RN documented in this encounter Plan of Treatment Upcoming Encounters Date Type Department Care Team (Late st Contact Info) Description 04/10/2025 2:10 PM EDT Appointment PAV CC Radiation [address] [phone] 04/11/2025 2:10 PM EDT Appointment PAV CC Radiation [address] [phone] 04/12/2025 2:10 PM EDT Appointment PAV CC Radiation [address] [phone] 04/15/2025 2:10 PM EDT Appointment PAV CC Radiation [address] [phone] 04/16/2025 2:10 PM EDT Appointment PAV CC Radiation [address] [phone] 04/17/2025 2:10 PM EDT Appointment PAV CC Radiation [address] [phone] 04/18/2025 2:10 PM EDT Appointment PAV CC Radiation [address] [phone] 04/19/2025 2:10 PM EDT Appointment PAV CC Radiation [address] [phone] 04/22/2025 2:10 PM EDT Appointment PAV CC Radiation [address] [phone] 04/23/2025 2:10 PM EDT Appointment PAV CC Radiation [address] [phone] 04/24/2025 2:10 PM EDT Appointment PAV CC Radiation [address] [phone] documented as of this encounter Visit Diagnoses [...] documented as of this encounter Care Teams Block Cuber Relationship Specialty Start Date End Date Tejal Saeed APRN [address] [place] [address] PCP - General 11/07/20 03/11/25 Km Wooten MD [address] [phone] Consulting Physician Radiation Oncology 02/14/25 documented as of this encounter
--- OUTSIDE RECORDS SUMMARY | 2025-04-10 08:54 | XMS_ITS | Encounter Summary ---
Author Organization [facility] Address [address] [place] [address] Care Team Providers Care Pattern Fitter Name Role Phone Tejal Saeed APRN Primary Care Provider [phone] Km Wooten MD Unavailable [phone] Comfort Siddiqi APRN Primary Care Provider [phone] Encounter Details Date Type Department Care Team (Late st Contact Info) Description 01/08/2025 Orders Only External Location [address] [place] [address] Provider, External Social History Tobacco [...] PM EDT Appointment PAV CC Radiation [address] [phone] 04/11/2025 2:10 PM EDT Appointment PAV CC Radiation [address] [phone] 04/12/2025 2:10 PM EDT Appointment PAV CC Radiation [address] [address] 04/15/2025 2:10 PM EDT Appointment PAV CC Radiation [address] [address] 04/16/2025 2:10 PM EDT Appointment PAV CC Radiation [address] [address] 04/17/2025 2:10 PM EDT Appointment PAV CC Radiation [address] [address] 04/18/2025 2:10 PM EDT Appointment PAV CC Radiation [address] [address] 04/19/2025 2:10 PM EDT Appointment PAV CC Radiation [address] [address] 04/22/2025 2:10 PM EDT Appointment PAV CC Radiation [address] [address] 04/23/2025 2:10 PM EDT Appointment PAV CC Radiation [address] [address] 04/24/2025 2:10 PM EDT Appointment PAV CC Radiation [address] [phone] documented as of this encounter Procedures Procedure [...] on filedocumented in this encounter Care Teams Pattern Fitter Relationship Specialty Start Date End Date Tejal Saeed APRN [address] [place] [address] PCP - General 11/07/20 03/11/25 Comfort Siddiqi APRN [address] [place] [address] PCP - General 03/12/25 Km Wooten MD 800 [facility] [address] [place] [address] Consulting Physician Radiation Oncology 02/14/25 documented as of this encounter
--- OUTSIDE RECORDS SUMMARY | 2025-04-10 08:54 | XMS_ITS | Encounter Summary ---
Author Organization Healthcare Address [address] [place] [address] Care Team Providers Care Denture Packer Name Role Phone Tejal Saeed APRN Primary Care Provider [phone] Km Wooten MD Unavailable [phone] Encounter Details Date Type Department Care Team (Late Contact Info) Description 02/21/2025 Telephone Pav CC Head, Neck & Respiratory 800 [facility], 2nd [place] [address] Eric Tellez MD [address] [place] [address] Social History Tobacco Use Types [...] PM EDT Appointment PAV CC Radiation [address] [facility]. [id number] [place] [address] 04/11/2025 2:10 PM EDT Appointment PAV CC Radiation [address] [address] 04/12/2025 2:10 PM EDT Appointment PAV CC Radiation [address] [address] 04/15/2025 2:10 PM EDT Appointment PAV CC Radiation [address] [address] 04/16/2025 2:10 PM EDT Appointment PAV CC Radiation [address] [address] 04/17/2025 2:10 PM EDT Appointment PAV CC Radiation [address] [address] 04/18/2025 2:10 PM EDT Appointment PAV CC Radiation [address] [place] [phone] 04/19/2025 2:10 PM EDT Appointment PAV CC Radiation [address] [address] 04/22/2025 2:10 PM EDT Appointment PAV CC Radiation [address] [address] 04/23/2025 2:10 PM EDT Appointment PAV CC Radiation [address] [address] 04/24/2025 2:10 PM EDT Appointment PAV CC Radiation [address] [address] documented as of this encounter Visit Diagnoses [...] documented as of this encounter Care Teams Denture Packer Relationship Specialty Start Date End Date Tejal Saeed APRN [address] [place] [address] PCP - General 11/07/20 03/11/25 Km Wooten MD 800 [facility] [address] [place] [address] Consulting Physician Radiation Oncology 02/14/25 documented as of this encounter
--- OUTSIDE RECORDS SUMMARY | 2025-04-10 08:54 | XMS_ITS | Encounter Summary ---
Author Organization [facility] Address [address] [place] [id number] Care Team Providers Care Crew Chief Name Role Phone Tejal Saeed APRN Primary Care Provider [phone] Km Wooten MD Unavailable [phone] Encounter Details Date Type Department Care [...] Appointment PAV CC Radiation [address] [place] [address] 04/11/2025 2:10 PM EDT Appointment PAV CC Radiation [address] 04/12/2025 2:10 PM EDT Appointment PAV CC Radiation [address] [phone] 04/15/2025 2:10 PM EDT Appointment PAV CC Radiation [address] 04/16/2025 2:10 PM EDT Appointment PAV CC Radiation [address] 04/17/2025 2:10 PM EDT Appointment PAV CC Radiation [address] [place] [phone] 04/18/2025 2:10 PM EDT Appointment PAV CC Radiation [address] 04/19/2025 2:10 PM EDT Appointment PAV CC Radiation [address] [place] [phone] 04/22/2025 2:10 PM EDT Appointment PAV CC Radiation [address] [place] [phone] 04/23/2025 2:10 PM EDT Appointment PAV CC Radiation [address] [place] [phone] 04/24/2025 2:10 PM EDT Appointment PAV CC Radiation [address] [address] documented as of this encounter Goals Goal [...] documented as of this encounter Care Teams Crew Chief Relationship Specialty Start Date End Date Tejal Saeed APRN [address] [place] [address] PCP - General 11/07/20 03/11/25 Km Wooten MD 800 [facility] [address] [place] [address] Consulting Physician Radiation Oncology 02/14/25 documented as of this encounter
--- OUTSIDE RECORDS SUMMARY | 2025-04-10 08:54 | XMS_ITS | Encounter Summary ---
Author Organization Healthcare Address [address] [place] [address] Care Team Providers Care Credit Verifier Name Role Phone Km Wooten MD Unavailable [phone] Comfort Siddiqi APRN Primary Care Provider [phone] Encounter Details Date Type Department Care Team (Late st Contact Info) Description 04/01/2025 Orders Only PAV CC Radiation [address] [place] [address] Radiation Oncology, Physician, [address] [place], [place] [id number] Social History Tobacco Use Types Packs/Day Years [...] EDT Appointment PAV CC Radiation [address] [place] [address] 04/11/2025 2:10 PM EDT Appointment PAV CC Radiation [address] [place] [address] 04/12/2025 2:10 PM EDT Appointment PAV CC Radiation [address] [place] [address] 04/15/2025 2:10 PM EDT Appointment PAV CC Radiation [address] [place] [address] 04/16/2025 2:10 PM EDT Appointment PAV CC Radiation [address] [place] [address] 04/17/2025 2:10 PM EDT Appointment PAV CC Radiation [address] [place] [address] 04/18/2025 2:10 PM EDT Appointment PAV CC Radiation [address] [place] [address] 04/19/2025 2:10 PM EDT Appointment PAV CC Radiation [address] [place] [phone] 04/22/2025 2:10 PM EDT Appointment PAV CC Radiation [address]0001 04/23/2025 2:10 PM EDT Appointment PAV CC Radiation [address] [phone] 04/24/2025 2:10 PM EDT Appointment PAV CC Radiation [address] [address] documented as of this encounter Goals Goal Patient Goal Type Associated Problems Recent Progress Patient-Stated? Author Autogenerat ed Goal Care Plan Autogenerated Problem No Lisa Johnston documented as of this encounter Procedures Procedure Name Priority Date/Time Associated Diagnosis Comments RAD ONC ARIA SESSION SUMMARY Routine 04/01/2025 2:13 PM EDT documented in this encounter Results * Rad Onc Aria Session Summary (04/01/2025 2:13 PM EDT) Course ID C1 ARIA RADIATION ONCOLOGY Course Intent Curative w/chemo ARIA RADIATION ONCOLOGY Course Start Date 03/01/2025 8:45 AM ARIA RADIATION ONCOLOGY Course First Treatment Date 03/21/2025 2:04 PM ARIA RADIATION ONCOLOGY Course Last Treatment Date 04/01/2025 2:11 PM ARIA RADIATION ONCOLOGY Course Elapsed Days 11 ARIA RADIATION ONCOLOGY Reference Point ID Pelvis ARIA RADIATION ONCOLOGY Reference Point Dosage Given to Date [id number] Gy ARIA RADIATION ONCOLOGY Reference Point Session Dosage Given [id number] Gy ARIA RADIATION ONCOLOGY Plan ID [id number] ARIA RADIATION ONCOLOGY Plan Name Pelvis& inguinals_PT V50 ARIA RADIATION ONCOLOGY Plan Fractions Treated to Date 8 ARIA RADIATION ONCOLOGY Plan Total Fractions Prescribed 25 ARIA RADIATION ONCOLOGY Plan Prescribed Dose Per Fraction 2 Gy ARIA RADIATION ONCOLOGY Plan Total Prescribed Dose 5,000 CGy ARIA RADIATION ONCOLOGY Plan Primary Reference Point Pelvis ARIA RADIATION ONCOLOGY 04/01/2025 2:13 PM EDT Physician Radiation Oncology MD RADIATION [...] documented as of this encounter Care Teams Credit Verifier Relationship Specialty Start Date End Date Comfort Siddiqi APRN [address] [place] [address] PCP - General 03/12/25 Km Wooten MD [address] [place] [id number] [place] [address] Consulting Physician Radiation Oncology 02/14/25 documented as of this encounter
--- OUTSIDE RECORDS SUMMARY | 2025-04-10 08:54 | XMS_ITS | Encounter Summary ---
Author Organization [facility] Address [address] [place] [address] Care Team Providers Care Sales Service Coordinator Name Role Phone Km Wooten MD Unavailable [phone] Comfort Siddiqi APRN Primary Care Provider [phone] Encounter Details Date Type Department Care Team [...] Appointment PAV CC Radiation [id number] [place] [address] 04/11/2025 2:10 PM EDT Appointment PAV CC Radiation [address]0001 04/12/2025 2:10 PM EDT Appointment PAV CC Radiation [address] [phone] 04/15/2025 2:10 PM EDT Appointment PAV CC Radiation [address] [place] [phone] 04/16/2025 2:10 PM EDT Appointment PAV CC Radiation [address]0001 04/17/2025 2:10 PM EDT Appointment PAV CC Radiation [address] [place] [id number] 04/18/2025 2:10 PM EDT Appointment PAV CC Radiation [address] [place] [phone] 04/19/2025 2:10 PM EDT Appointment PAV CC Radiation [address] [place] [id number] 04/22/2025 2:10 PM EDT Appointment PAV CC Radiation [address] [phone] 04/23/2025 2:10 PM EDT Appointment PAV CC Radiation [address] [address] 04/24/2025 2:10 PM EDT Appointment PAV CC Radiation [address] [place] [phone] documented as of this encounter Goals Goal [...] documented as of this encounter Care Teams Sales Service Coordinator Relationship Specialty Start Date End Date Comfort Siddiqi APRN [address] [place] [address] PCP - General 03/12/25 Km Wooten MD [address] [place] [address] Consulting Physician Radiation Oncology 02/14/25 documented as of this encounter
--- OUTSIDE RECORDS SUMMARY | 2025-04-10 08:54 | XMS_ITS | Encounter Summary ---
Author Organization [facility] Address [address] [place] [address] Care Team Providers Care Dietitian Assistant Name Role Phone Km Wooten MD Unavailable [phone] Comfort Siddiqi APRN Primary Care Provider [phone] Encounter Details Date Type Department Care Team (Latest Contact Info) Description 04/01/2025 Travel Social History Tobacco Use Types Packs/Day [...] Appointment PAV CC Radiation [address] QI[address]Z [place] [address] 04/11/2025 2:10 PM EDT Appointment PAV CC Radiation [address]0001 04/12/2025 2:10 PM EDT Appointment PAV CC Radiation [address] [phone] 04/15/2025 2:10 PM EDT Appointment PAV CC Radiation [address] [place] [id number] 04/16/2025 2:10 PM EDT Appointment PAV CC Radiation [address]0001 04/17/2025 2:10 PM EDT Appointment PAV CC Radiation [address] [place] [id number] 04/18/2025 2:10 PM EDT Appointment PAV CC Radiation [address]0001 04/19/2025 2:10 PM EDT Appointment PAV CC Radiation [address] [place] [phone] 04/22/2025 2:10 PM EDT Appointment PAV CC Radiation [address] [phone] 04/23/2025 2:10 PM EDT Appointment PAV CC Radiation [address] [phone] 04/24/2025 2:10 PM EDT Appointment PAV CC Radiation [address] [place] [phone] documented as of this encounter Goals Goal [...] documented as of this encounter Care Teams Dietitian Assistant Relationship Specialty Start Date End Date Comfort Siddiqi APRN [address] [place] [address] PCP - General 03/12/25 Km Wooten MD [address] [place] [address] Consulting Physician Radiation Oncology 02/14/25 documented as of this encounter
--- OUTSIDE RECORDS SUMMARY | 2025-04-10 08:54 | XMS_ITS | Encounter Summary ---
Author Organization [facility] Address [address] [place] [address] Care Team Providers Care Prefabricator Name Role Phone Km Wooten MD Unavailable [phone] Comfort Siddiqi APRN Primary Care Provider [phone] Encounter Details Date Type Department Care Team [...] Appointment PAV CC Radiation [address] [place] [address] 04/11/2025 2:10 PM EDT Appointment PAV CC Radiation [address]0001 04/12/2025 2:10 PM EDT Appointment PAV CC Radiation [address] [phone] 04/15/2025 2:10 PM EDT Appointment PAV CC Radiation [address] [place] [phone] 04/16/2025 2:10 PM EDT Appointment PAV CC Radiation [address]0001 04/17/2025 2:10 PM EDT Appointment PAV CC Radiation [address] [place] [phone] 04/18/2025 2:10 PM EDT Appointment PAV CC Radiation [address] [place] [phone] 04/19/2025 2:10 PM EDT Appointment PAV CC Radiation [address] [place] [phone] 04/22/2025 2:10 PM EDT Appointment PAV CC Radiation [address] [phone] 04/23/2025 2:10 PM EDT Appointment PAV CC Radiation [address] [phone] 04/24/2025 2:10 PM EDT Appointment PAV CC Radiation [address] [place] [phone] documented as of this encounter Goals Goal [...] documented as of this encounter Care Teams Prefabricator Relationship Specialty Start Date End Date Comfort Siddiqi APRN [address] [place] [address] PCP - General 03/12/25 Km Wooten MD [address] [place] [address] Consulting Physician Radiation Oncology 02/14/25 documented as of this encounter
--- OUTSIDE RECORDS SUMMARY | 2025-04-10 08:54 | XMS_ITS | Encounter Summary ---
Author Organization [facility] Address [address] [place] [id number] Care Team Providers Care Wire Temperer Name Role Phone Tejal Saeed APRN Primary Care Provider [phone] Km Wooten MD Unavailable [phone] Encounter Details Date Type Department Care Team (Late st Contact Info) Description 02/20/2025 Telephone [facility] [address], [address] [place] [address] [place] [address] Social History Tobacco Use Types Packs/Day Years [...] PAV CC Radiation [address] [phone] 04/11/2025 2:10 PM EDT Appointment PAV CC Radiation [address] [address] 04/12/2025 2:10 PM EDT Appointment PAV CC Radiation [address] [address] 04/15/2025 2:10 PM EDT Appointment PAV CC Radiation [address] [address] 04/16/2025 2:10 PM EDT Appointment PAV CC Radiation [address] [place] [phone] 04/17/2025 2:10 PM EDT Appointment PAV CC Radiation [address] [address] 04/18/2025 2:10 PM EDT Appointment PAV CC Radiation [address] [address] 04/19/2025 2:10 PM EDT Appointment PAV CC Radiation [address] [phone] 04/22/2025 2:10 PM EDT Appointment PAV CC Radiation [address] [address] 04/23/2025 2:10 PM EDT Appointment PAV CC Radiation [address] [phone] 04/24/2025 2:10 PM EDT Appointment PAV CC Radiation [address] [phone] documented as of this encounter Visit Diagnoses [...] as of this encounter Care Teams Wire Temperer Relationship Specialty Start Date End Date Tejal Saeed APRN [address] [place] [address] PCP - General 11/07/20 03/11/25 Km Wooten MD [address] [phone] Consulting Physician Radiation Oncology 02/14/25 documented as of this encounter
--- OUTSIDE RECORDS SUMMARY | 2025-04-10 08:54 | XMS_ITS | Encounter Summary ---
Author Organization [facility] Address [address] [place] [address] Care Team Providers Care Company Truck Driver Name Role Phone Tejal Saeed APRN Primary Care Provider [phone] Km Wooten MD Unavailable [phone] Comfort Siddiqi APRN Primary Care Provider [phone] Encounter Details Date Type Department Care Team (Late st Contact Info) Description 01/08/2025 Orders Only External Location [address] [place] [address] Provider, External Social History Tobacco [...] PM EDT Appointment PAV CC Radiation [address] [phone] 04/11/2025 2:10 PM EDT Appointment PAV CC Radiation [address] [phone] 04/12/2025 2:10 PM EDT Appointment PAV CC Radiation [address] [address] 04/15/2025 2:10 PM EDT Appointment PAV CC Radiation [address] [address] 04/16/2025 2:10 PM EDT Appointment PAV CC Radiation [address] [address] 04/17/2025 2:10 PM EDT Appointment PAV CC Radiation [address] [address] 04/18/2025 2:10 PM EDT Appointment PAV CC Radiation [address] [address] 04/19/2025 2:10 PM EDT Appointment PAV CC Radiation [address] [place] [phone] 04/22/2025 2:10 PM EDT Appointment PAV CC Radiation [address] [address] 04/23/2025 2:10 PM EDT Appointment PAV CC Radiation [address] [address] 04/24/2025 2:10 PM EDT Appointment PAV CC Radiation [address] [phone] documented as of this encounter Procedures Procedure [...] on filedocumented in this encounter Care Teams Company Truck Driver Relationship Specialty Start Date End Date Tejal Saeed APRN [address] [place] [address] PCP - General 11/07/20 03/11/25 Comfort Siddiqi APRN [address] [place] [address] PCP - General 03/12/25 Km Wooten MD 800 [facility] [address] [place] [address] Consulting Physician Radiation Oncology 02/14/25 documented as of this encounter
--- OUTSIDE RECORDS SUMMARY | 2025-04-10 08:54 | XMS_ITS | Encounter Summary ---
Author Organization Healthcare Address [address] [place] [address] Care Team Providers Care Director Of Psychiatry Name Role Phone Km Wooten MD Unavailable [phone] Comfort Siddiqi APRN Primary Care Provider [phone] Encounter Details Date Type Department Care Team (Late st Contact Info) Description 04/02/2025 Orders Only PAV CC Radiation [address] [place] [address] Radiation Oncology, Physician, [address] [place], [place] [id number] Social History Tobacco Use Types Packs/Day Years [...] PAV CC Radiation [address] [place] [address] 04/11/2025 2:10 PM EDT Appointment PAV CC Radiation [address] [place] [address] 04/12/2025 2:10 PM EDT Appointment PAV CC Radiation [address] [place] [address] 04/15/2025 2:10 PM EDT Appointment PAV CC Radiation [address] [place] [address] 04/16/2025 2:10 PM EDT Appointment PAV CC Radiation [address] [place] [address] 04/17/2025 2:10 PM EDT Appointment PAV CC Radiation [address] [place] [address] 04/18/2025 2:10 PM EDT Appointment PAV CC Radiation [address] [place] [address] 04/19/2025 2:10 PM EDT Appointment PAV CC Radiation [address] [place] [phone] 04/22/2025 2:10 PM EDT Appointment PAV CC Radiation [address] 04/23/2025 2:10 PM EDT Appointment PAV CC Radiation [address] [phone] 04/24/2025 2:10 PM EDT Appointment PAV CC Radiation [address] [phone] documented as of this encounter Goals Goal Patient Goal Type Associated Problems Recent Progress Patient-Stated? Author Autogenerat ed Goal Care Plan Autogenerated Problem No Lisa Johnston documented as of this encounter Procedures Procedure Name Priority Date/Time Associated Diagnosis Comments RAD ONC ARIA SESSION SUMMARY Routine 04/02/2025 2:18 PM EDT documented in this encounter Results * Rad Onc Aria Session Summary (04/02/2025 2:18 PM EDT) Course ID C1 ARIA RADIATION ONCOLOGY Course Intent Curative w/chemo ARIA RADIATION ONCOLOGY Course Start Date 03/01/2025 8:45 AM ARIA RADIATION ONCOLOGY Course First Treatment Date 03/21/2025 2:04 PM ARIA RADIATION ONCOLOGY Course Last Treatment Date 04/02/2025 2:17 PM ARIA RADIATION ONCOLOGY Course Elapsed Days 12 ARIA RADIATION ONCOLOGY Reference Point ID Pelvis ARIA RADIATION ONCOLOGY Reference Point Dosage Given to Date [id number] Gy ARIA RADIATION ONCOLOGY Reference Point Session Dosage Given [id number] Gy ARIA RADIATION ONCOLOGY Plan ID A1A8 ARIA RADIATION ONCOLOGY Plan Name Pelvis& inguinals_PT V50 ARIA RADIATION ONCOLOGY Plan Fractions Treated to Date 9 ARIA RADIATION ONCOLOGY Plan Total Fractions Prescribed 25 ARIA RADIATION ONCOLOGY Plan Prescribed Dose Per Fraction 2 Gy ARIA RADIATION ONCOLOGY Plan Total Prescribed Dose 5,000 CGy ARIA RADIATION ONCOLOGY Plan Primary Reference Point Pelvis ARIA RADIATION ONCOLOGY 04/02/2025 2:18 PM EDT Physician Radiation Oncology MD RADIATION [...] of this encounter Care Teams Director Of Psychiatry Relationship Specialty Start Date End Date Comfort Siddiqi APRN [address] [place] [address] PCP - General 03/12/25 Km Wooten MD [address] [place] [id number] [place] [address] Consulting Physician Radiation Oncology 02/14/25 documented as of this encounter
--- OUTSIDE RECORDS SUMMARY | 2025-04-10 08:54 | XMS_ITS | Encounter Summary ---
Author Organization [facility] Address [address] [place] [address] Care Team Providers Care Hand Laster Name Role Phone Tejal Saeed APRN Primary Care Provider [phone] Km Wooten MD Unavailable [phone] Encounter Details Date Type Department Care [...] PAV CC Radiation [address] [address] 04/11/2025 2:10 PM EDT Appointment PAV CC Radiation [address] [address] 04/12/2025 2:10 PM EDT Appointment PAV CC Radiation [address] [address] 04/15/2025 2:10 PM EDT Appointment PAV CC Radiation [id number] [place] [address] 04/16/2025 2:10 PM EDT Appointment PAV CC Radiation [id number] [place] [address] 04/17/2025 2:10 PM EDT Appointment PAV CC Radiation [address] [place] [phone] 04/18/2025 2:10 PM EDT Appointment PAV CC Radiation [address] [address] 04/19/2025 2:10 PM EDT Appointment PAV CC Radiation [address] [place] [phone] 04/22/2025 2:10 PM EDT Appointment PAV CC Radiation [address] 04/23/2025 2:10 PM EDT Appointment PAV CC Radiation [address] [address] 04/24/2025 2:10 PM EDT Appointment PAV CC Radiation [address] [place] [phone] documented as of this encounter Visit Diagnoses [...] as of this encounter Care Teams Hand Laster Relationship Specialty Start Date End Date Tejal Saeed APRN [address] [place] [address] PCP - General 11/07/20 03/11/25 Km Wooten MD 800 [facility] [address] [place] [address] Consulting Physician Radiation Oncology 02/14/25 documented as of this encounter
--- OUTSIDE RECORDS SUMMARY | 2025-04-10 08:55 | XMS_ITS | Clinical Summary ---
Author Organization [facility] Address [address] [place] [address] Care Team Providers Care Financial Representative Name Role Phone Km Wooten MD Unavailable Comfort Siddiiq APRN Primary Care Provider [phone] Allergies No known active allergies Medications atorvastatin [...] Encounters Date Type Department Care Team Description 04/09/2025 1:45 PM EDT Hospital Encounter [facility] [address] [place] [address] 04/09/2025 Orders Only [facility] [address] [address] Radiation Oncology, PhysicianMD 04/08/2025 1:38 PM EDT Hospital Encounter [facility] [address] [address] 04/08/2025 5:30 AM EDT Hospital Encounter [facility] [address] Arrived 04/08/2025 Orders Only [facility] [address] [address] Radiation Oncology, PhysicianMD 04/08/2025 Travel 04/05/2025 2:06 PM EDT Hospital Encounter [facility] [address] [address] 04/05/2025 Orders Only [facility] [address] [phone] Radiation Oncology, PhysicianMD 04/04/2025 1:53 PM EDT Hospital Encounter [facility] [address] Nancy Stanley MD Malignant neoplasm of rectum (CMS/HCC) (Primary Dx) 04/04/2025 1:47 PM EDT Hospital Encounter [facility] [address] [address] 04/04/2025 Orders Only [facility] [address] [address] Radiation Oncology, PhysicianMD 04/03/2025 1:29 PM EDT Hospital Encounter [facility] [address] [address] 04/03/2025 Orders Only [facility] [address] [address] Radiation Oncology, PhysicianMD 04/02/2025 1:58 PM EDT - 04/02/2025 11:59 PM EDT Hospital Encounter [facility] [address] [address] Discharge Disposition: Still a Patient 04/02/2025 Orders Only [facility] Rad[facility] [address] [address] Radiation Oncology, PhysicianMD 04/01/2025 1:41 PM EDT - 04/01/2025 11:59 PM EDT Hospital Encounter [facility] [address] [address] Discharge Disposition: Still a Patient 04/01/2025 5:30 AM EDT - 04/01/2025 1:40 PM EDT Hospital Encounter [facility] [address] [address] Discharge Disposition: Still a Patient 04/01/2025 Orders Only [facility] [address] [address] Radiation Oncology, Physician, 04/01/2025 Travel 03/29/2025 1:25 PM EDT - 03/29/2025 11:59 PM EDT Hospital Encounter [facility] [address] [address] Discharge Disposition: Still a Patient 03/29/2025 Orders Only [facility] [address] [phone] Radiation Oncology, PhysicianMD 03/28/2025 1:54 PM EDT - 03/28/2025 11:59 PM EDT Hospital Encounter [facility] [address] [address] Km Wooten MD Malignant neoplasm of rectum (CMS/HCC) (Primary Dx) Discharge Disposition: Still a Patient 03/28/2025 1:37 PM EDT - 03/28/2025 1:53 PM EDT Hospital Encounter [facility] [address] [address] Discharge Disposition: Still a Patient 03/28/2025 Orders Only [facility] [address] [address] Radiation Oncology, PhysicianMD 03/27/2025 1:38 PM EDT - 03/27/2025 11:59 PM EDT Hospital Encounter [facility] [address] [address] Discharge Disposition: Still a Patient 03/27/2025 Orders Only [facility] [address] [address] Radiation Oncology, Physician, 03/26/2025 1:30 PM EDT - 03/26/2025 11:59 PM EDT Hospital Encounter [facility] [address] [address] Discharge Disposition: Still a Patient 03/26/2025 Orders Only [facility] Rad[facility] [address] [address] Radiation Oncology, PhysicianMD 03/25/2025 1:35 PM EDT - 03/25/2025 11:59 PM EDT Hospital Encounter [facility] [address] [address] Discharge Disposition: Still a Patient 03/25/2025 5:30 AM EDT - 03/25/2025 1:34 PM EDT Hospital Encounter [facility] [address] [address] Discharge Disposition: Still a Patient 03/25/2025 Orders Only [facility] [address] [address] Radiation Oncology, PhysicianMD 03/25/2025 Travel 03/22/2025 1:49 PM EDT - 03/22/2025 11:59 PM EDT Hospital Encounter [facility] [address] [address] Discharge Disposition: Still a Patient 03/22/2025 Orders Only [facility] Radiation [address] [address] Radiation Oncology, PhysicianMD 03/21/2025 2:12 PM EDT - 03/21/2025 11:59 PM EDT Hospital Encounter [facility] [address] [address] Km Wooten MD Malignant neoplasm of rectum (CMS/HCC) (Primary Dx) Discharge Disposition: Still a Patient 03/21/2025 1:48 PM EDT - 03/21/2025 2:11 PM EDT Hospital Encounter [facility] Radiation 800 [facility]. [address] [address] Km Wooten MD Discharge Disposition: Still a Patient 03/21/2025 Travel 03/21/2025 Orders Only [facility] Radiation [address] [address] Radiation Oncology, Physician, 03/20/2025 Travel 03/18/2025 8:34 AM EDT - 03/18/2025 11:59 PM EDT Hospital Encounter [facility] [address] [phone] Discharge Disposition: Still a Patient 03/18/2025 Travel 03/15/2025 9:00 AM EDT Office Visit [facility] Head[facility] Neck & Respiratory 800 [facility], 2nd [place] [address] Deepak Haider MD Malignant neoplasm of rectum (CMS/HCC) (Primary Dx) 03/15/2025 Travel 03/12/2025 10:12 AM EDT Anesthesia Event [facility] Endoscopy [address] [place] [address] Shaun Hanley MD 03/12/2025 9:12 AM EDT - 03/12/2025 11:59 PM EDT Hospital Encounter [facility] Endoscopy [address] [place] [address] Eric Tellez MD Lung nodule Discharge Disposition: Home or Self Care 03/12/2025 Travel 03/11/2025 5:00 PM EDT - 03/11/2025 11:59 PM EDT Hospital Encounter [facility] [address] [phone] Discharge Disposition: Still a Patient 03/11/2025 Travel 03/04/2025 8:42 AM EDT - 03/04/2025 11:59 PM EDT Hospital Encounter [facility] [address] [address] Discharge Disposition: Still a Patient 03/04/2025 Travel 03/01/2025 8:40 AM EDT - 03/01/2025 11:59 PM EDT Hospital Encounter [facility] [address] [address] Km Wooten MD Discharge Disposition: Still a Patient 02/28/2025 3:30 PM EDT Office Visit [facility] Ne[facility] Res[facility] [address] [address] Eric Tellez MD Adenopathy (Primary Dx) 02/28/2025 Travel 02/26/2025 Telephone [facility] Urology [address] [address] Perlita Her RN 02/26/2025 Travel 02/25/2025 11:50 AM EDT - 02/25/2025 11:59 PM EDT Hospital Encounter [facility] [address] [address] Discharge Disposition: Still a Patient 02/21/2025 Telephone [facility] Head[facility] Neck [facility] Respiratory [address] [address] Eric Tellez MD 02/20/2025 Telephone [facility] Urology [address] [address] Susi Bustos 02/20/2025 Telephone [facility] Urology [address] [address] uSsi Bustos 2025 2:44 PM EDT - 2025 11:59 PM EDT Hospital Encounter [facility] [address] [address] Km Wooten MD Malignant neoplasm of rectum (CMS/HCC) (Primary Dx) Discharge Disposition: Still a Patient 2025 Travel 02/18/2025 Orders Only [facility] Radiation [address] [address] Km Wooten MD Elevated PSA (Primary Dx) 02/14/2025 Orders Only [facility] [address] [place] [address] Con Sumner MD 02/14/2025 Telephone [facility] [address] [address] Km Wooten MD 02/14/2025 Orders Only [facility] [address] [place] [address] Con Sumner MD Malignant neoplasm of rectum (CMS/HCC) (Primary Dx) 02/11/2025 4:34 PM EDT - 02/11/2025 11:59 PM EDT Hospital Encounter [facility] Radiology [address] [place] [address] Malignant neoplasm of rectum (CMS/HCC) Discharge Disposition: Home or Self Care 02/11/2025 3:04 PM EDT - 02/11/2025 4:33 PM EDT Hospital Encounter [facility] Radiology [address] [place] [address] Malignant neoplasm of rectum (CMS/HCC) Discharge Disposition: Home or Self Care 02/11/2025 Travel 02/08/2025 Lab Requisition [facility] Lab [address] [place] [address] Con Sumner MD Hemorrhage of anus and rectum 02/05/2025 11:00 AM EDT Office Visit [facility] [address] [place] [address] Con Sumner MD Malignant neoplasm of rectum (CMS/HCC) (Primary Dx) 02/05/2025 Travel 01/08/2025 Orders Only External Location [address] [place] [address] Provider, External 01/08/2025 Orders Only External Location [address] [place] [address] Provider, External 01/08/2025 Orders Only External Location [address] [place] [address] Provider, External from Last 3 Months Family [...] 5.2 oz) 04/04/2025 2:40 PM EDT Height 167.6 cm (5' 6 ) 03/12/2025 9:47 AM EDT Body Mass Index 45.08 03/12/2025 9:47 AM EDT Plan of Treatment Upcoming Encounters Date Type Department Care Team (Late st Contact Info) Description 04/10/2025 2:10 PM EDT Appointment [facility] [address] [place] [address] 04/11/2025 2:10 PM EDT Appointment [facility] [address] [place] [phone] 04/12/2025 2:10 PM EDT Appointment [facility] [address] [place] [address] 04/15/2025 2:10 PM EDT Appointment [facility] Rad[facility] [address] [place] [address] 04/16/2025 2:10 PM EDT Appointment [facility] Rad[facility] [address] [place] [phone] 04/17/2025 2:10 PM EDT Appointment [facility] Rad[facility] [address] [place] [address] 04/18/2025 2:10 PM EDT Appointment [facility]iation [address] [place] [address] 04/19/2025 2:10 PM EDT Appointment [facility] [address] [address] 04/22/2025 2:10 PM EDT Appointment [facility] [address] [address] 04/23/2025 2:10 PM EDT Appointment [facility] Radiation [address] [phone] 04/24/2025 2:10 PM EDT Appointment [facility] Radiation [address] [phone] Health Maintenance Due Date Last Done Comments [...] 02/20/2016 Sigmoidoscopy 02/20/2016 [facility]-Colorectal Cancer Screening 02/20/2016 DIP-GYSNO-14 Vaccine ( season) 2025 06/24/2021, 11/08/2020, 10/11/2020 [facility]-Influenza Vaccine [...] Plan Autogenerated Problem No Lisa Johnston Jeovany Procedures Procedure Name Priority Date/Time Associated Diagnosis Comments RAD ONC ARIA SESSION SUMMARY Routine 04/09/2025 2:33 PM EDT RAD ONC ARIA SESSION SUMMARY Routine 04/08/2025 2:04 PM EDT RAD ONC ARIA SESSION SUMMARY Routine 04/05/2025 2:21 PM EDT RAD ONC ARIA SESSION SUMMARY Routine 04/04/2025 2:31 PM EDT RAD ONC ARIA SESSION SUMMARY Routine 04/03/2025 1:41 PM EDT RAD ONC ARIA SESSION SUMMARY Routine 04/02/2025 2:18 PM EDT RAD ONC ARIA SESSION SUMMARY Routine 04/01/2025 2:13 PM EDT RAD ONC ARIA SESSION SUMMARY Routine 03/29/2025 2:27 PM EDT RAD ONC ARIA SESSION SUMMARY Routine 03/28/2025 [...] ANESTHESIA PLACEHOLDER Routine 03/12/2025 10:22 AM EDT AK AN ELECTIVE ENDOTRACHEAL AIRWAY Routine 03/12/2025 10:22 [...] ONCOLOGY Reference Point Dosage Given to Date 27.28974024 Gy ARIA RADIATION ONCOLOGY Reference Point Session Dosage Given 1.75480599 Gy ARIA RADIATION ONCOLOGY Plan ID [id number] [...] ARIA RADIATION ONCOLOGY 04/09/2025 2:33 PM EDT us Physician Radiation Oncology RADIATION ONCOLO GY ORDERABLES Final Result ARIA RADIATION ONCOLOGY * Rad Onc Aria Session Summary (04/08/2025 [...] ONCOLOGY Reference Point Dosage Given to Date 25.17229425 Gy ARIA RADIATION ONCOLOGY Reference Point Session Dosage Given 1.21046310 Gy ARIA RADIATION ONCOLOGY Plan ID A1A8 [...] ONCOLOGY * Rad Onc Aria Session Summary (04/05/2025 [...] ONCOLOGY Reference Point Dosage Given to Date 23.54770387 Gy ARIA RADIATION ONCOLOGY Reference Point Session Dosage Given 1.74645134 Gy ARIA RADIATION ONCOLOGY Plan ID A1A8 [...] 04/05/2025 2:21 PM EDT Physician Radiation Oncology RADIATION ONCOLO GY ORDERABLES Final Result ARIA RADIATION ONCOLOGY * Rad Onc Aria Session Summary (04/04/2025 [...] ONCOLOGY Reference Point Dosage Given to Date 21.51300718 Gy ARIA RADIATION ONCOLOGY Reference Point Session Dosage Given 1.86125416 Gy ARIA RADIATION ONCOLOGY Plan ID A1A8 [...] 04/04/2025 2:31 PM EDT Physician Radiation Oncology RADIATION ONCLUZ GY ORDERABLES Final Result ARIA RADIATION ONCOLOGY * Rad Onc Aria Session Summary (04/03/2025 [...] ONCOLOGY Reference Point Dosage Given to Date 19.3043048 Gy ARIA RADIATION ONCOLOGY Reference Point Session Dosage Given 1.44387505 Gy ARIA RADIATION ONCOLOGY Plan ID A1A8 [...] 04/03/2025 1:41 PM EDT Physician Radiation Oncology RADIATION ONCOLO GY ORDERABLES Final Result ARIA RADIATION ONCOLOGY * Rad Onc Aria Session Summary (04/02/2025 [...] ONCOLOGY Reference Point Dosage Given to Date 17.46181166 Gy ARIA RADIATION ONCOLOGY Reference Point Session Dosage Given 1.56626065 Gy ARIA RADIATION ONCOLOGY Plan ID A1A8 [...] 04/02/2025 2:18 PM EDT Physician Radiation Oncology RADIATION ONCLUZ GY ORDERABLES Final Result ARIA RADIATION ONCOLOGY * Rad Onc Aria Session Summary (04/01/2025 [...] ONCOLOGY Reference Point Dosage Given to Date 15.17187511 Gy ARIA RADIATION ONCOLOGY Reference Point Session Dosage Given 1.61034621 Gy ARIA RADIATION ONCOLOGY Plan ID A1A8 [...] 04/01/2025 2:13 PM EDT Physician Radiation Oncology RADIATION ONCLUZ GY ORDERABLES Final Result ARIA RADIATION ONCOLOGY * Rad Onc Aria Session Summary (03/29/2025 2:27 PM EDT) Course ID C1 ARIA RADIATION ONCOLOGY Course Intent Curative w/chemo ARIA RADIATION ONCOLOGY Course Start Date 03/01/2025 8:45 AM ARIA RADIATION ONCOLOGY Course First Treatment Date 03/21/2025 2:04 PM ARIA RADIATION ONCOLOGY Course Last Treatment Date 03/29/2025 2:25 PM ARIA RADIATION ONCOLOGY Course Elapsed Days 8 ARIA RADIATION ONCOLOGY Reference Point ID Pelvis ARIA RADIATION ONCOLOGY Reference Point Dosage Given to Date 13.76316974 Gy ARIA RADIATION ONCOLOGY Reference Point Session Dosage Given 1.53040661 Gy ARIA RADIATION ONCOLOGY Plan ID A1A8 ARIA RADIATION ONCOLOGY Plan Name Pelvis& inguinals_PT V50 ARIA RADIATION ONCOLOGY Plan Fractions Treated to Date 7 ARIA RADIATION ONCOLOGY Plan Total Fractions Prescribed 25 ARIA RADIATION ONCOLOGY Plan Prescribed Dose Per Fraction 2 Gy ARIA RADIATION ONCOLOGY Plan Total Prescribed Dose 5,000 CGy ARIA RADIATION ONCOLOGY Plan Primary Reference Point Pelvis ARIA RADIATION ONCOLOGY 03/29/2025 2:27 PM EDT Physician Radiation Oncology RADIATION ONCOLO GY ORDERABLES Final Result ARIA RADIATION ONCOLOGY * Rad Onc Aria Session Summary (03/28/2025 [...] ONCOLOGY Reference Point Dosage Given to Date 11.76201742 Gy ARIA RADIATION ONCOLOGY Reference Point Session Dosage Given 1.84577235 Gy ARIA RADIATION ONCOLOGY Plan ID A1A8 [...] ONCOLOGY Reference Point Dosage Given to Date 9.79018859 Gy ARIA RADIATION ONCOLOGY Reference Point Session Dosage Given 1.96778202 Gy ARIA RADIATION ONCOLOGY Plan ID A1A8 [...] ONCOLOGY Reference Point Dosage Given to Date 7.89957033 Gy ARIA RADIATION ONCOLOGY Reference Point Session Dosage Given 1.78473109 Gy ARIA RADIATION ONCOLOGY Plan ID A1A8 [...] ONCOLOGY Reference Point Dosage Given to Date 5.73492127 Gy ARIA RADIATION ONCOLOGY Reference Point Session Dosage Given 1.89510412 Gy ARIA RADIATION ONCOLOGY Plan ID A1A8 [...] 2:49 PM EDT Physician Radiation Oncology RADIATION ONCLUZ [...] ONCOLOGY Reference Point Dosage Given to Date 3.10353781 Gy ARIA RADIATION ONCOLOGY Reference Point Session Dosage Given 1.81131234 Gy ARIA RADIATION ONCOLOGY Plan ID A1A8 [...] 2:22 PM EDT Physician Radiation Oncology RADIATION ONCLUZ [...] ONCOLOGY Reference Point Dosage Given to Date 1.50220151 Gy ARIA RADIATION ONCOLOGY Reference Point Session Dosage Given 1.81275716 Gy ARIA RADIATION ONCOLOGY Plan ID A1A8 [...] ORDERABLES Final Result ARIA RADIATION ONCOLOGY * Fungal Culture, Tissue and PARMINDER (03/12/2025 12:37 PM EDT) Culture Reading Mycological 4 Weeks No Fungal Growth at 4 Weeks 04/09/2025 6:43 AM EDT [facility] PARMINDER No fungal elements seen 04/09/2025 6:43 AM EDT [facility] Fine Needle Aspirate Structure of lymph node / Unknown Non-blood Collection / Unknown 03/12/2025 12:37 PM EDT 03/12/2025 12:46 PM EDT Eric Tellez MD LAB MICROBIOLOGY - GENERAL OR DERABLES Final Result [facility] [address] [place] [address] * Tissue Culture and Gram Stain (03/12/2025 12:37 PM EDT) Culture No growth at day 4 09/20/ 2025 2:01 PM EDT [facility] Gram Stain Result No organisms seen 03/16/2025 2:01 PM EDT [facility] Gram Stain Result No polymorphonuclear leukocytes seen 03/16/2025 2:01 PM EDT [facility] Fine Needle Aspirate Structure of lymph node / Unknown Non-blood Collection / Unknown 03/12/2025 12:37 PM EDT 03/12/2025 12:46 PM EDT Eric Tellez MD LAB MICROBIOLOGY - GENERAL OR DERABLES Final Result Performing Organization Address [facility]/ZIP Co de Phone Number [facility] [address] [place] [address] * (ABNORMAL) Anaerobic Culture (03/12/2025 12:37 PM EDT) Culture No anaerobes isolated 03/16/2025 4:33 PM EDT [facility] Culture Streptococcus mitis/oralis group(A) 03/16/2025 4:33 PM EDT [facility] Comment: This isolate has been identified using the FDA Approved [employer] [place] System The organism value for this result has been updated. These results have been appended to the previously preliminary verified report. Fine Needle Aspirate Structure of lymph node / Unknown Non-blood Collection / Unknown 03/12/2025 12:37 PM EDT 03/12/2025 12:46 PM EDT Narrative Organism Antibiotic Method Susceptibility Streptococcus mitis/oralis group Penicillin G ETEST 0.032 ug/ml: Susceptible us Eric Tellez MD LAB MICROBIOLOGY - GENERAL OR DERABLES Final Result Performing Organization Address City/[facility] Co de Phone Number [facility] [address] [place] [address] * Bronchoscopy w EBUS (03/12/2025 11:25 AM [...] Nodes observed under convex ultrasound guidance. Onsite fisher mussel was present and cytology results were preliminarily [...] Mccoy RN Endo Nurse Carmen Zelaya Endo Environmental Conflict Manager Palma Marin CRNA MODEL TECHNICIAN Eric Tellez MD Proceduralist Shaun Hanley MD Anesthesiologist Impression Overall Impression: Normal endobronchial exam The three lymph nodes sampled today on [address] were benign Post Procedure Diagnosis None Recommendation Follow-up: with referring provider Attestation I was present for the entire procedure Billing Codes See procedure report details above. [address]1731 - EBUS convex prove 1 or 2 lesions GC - Service has been performed in part by a resident/fellow under the direction of a teaching physician Eric Tellez MD GI PROCEDURE ORDERABLES Final Result * Fine needle aspiration (03/12/2025 10:43 AM EDT) Case Report Cytology Case: [id number] Authorizing Provider: Eric Tellez MD Collected: 03/12/2025 1043 Ordering Location: [facility] H Endoscopy Received: 03/12/2025 1129 Pathologist: [...] GUIDED FINE NEEDLE ASPIRATION 12:59 PM EDT [facility] Final Diagnosis A. LYMPH NODE, STATION 7, ENDOBRONCHIAL ULTRASOUND-GUIDED FINE NEEDLE ASPIRATION: NO EVIDENCE OF MALIGNANCY, HEMODILUTE LYMPHOID TISSUE. B. LYMPH NODE, 4 RIGHT, ENDOBRONCHIAL ULTRASOUND-GUIDED FINE NEEDLE ASPIRATION: NO EVIDENCE OF MALIGNANCY, HEMODILUTE LYMPHOID TISSUE. C. LYMPH NODE, 11 RIGHT, ENDOBRONCHIAL ULTRASOUND-GUIDED FINE NEEDLE ASPIRATION: NO EVIDENCE OF MALIGNANCY, HEMODILUTE LYMPHOID TISSUE. 12:59 PM EDT [facility] at 1259 EDT Comment The possibility of rare poorly-formed granulomas is not excluded, especially in the station 7 lymph node sample. For this reason, GMS and AFB stains are performed. These are negative for organisms. 12:59 PM EDT [facility] Special and Immunohistochemical Stains Special Stain: A1-2 Acid Fast Bacteria A1-3 GMS IHC: There are no tasks to display for the given criteria. All controls show appropriate reactivity. All immunohistochemis try, in situ hybridization, and histochemical tests were developed by and are performed at the [facility], [address] [facility], [facility], [place] [address]. All tests reported here, except those addressing [...] on decalcified specimens. 5 12:59 PM EDT [facility] Immediate Evaluation A. FNA [...] physician listed above. 5 12:59 PM EDT [facility] Gross Description A. LYMPH [...] Time: 1h 31m 5 12:59 PM EDT [facility] Note: A resident was involved in the service. I attest I examined the relevant preparations for the specimens and confirmed the diagnosis or interpretation. 12:59 PM EDT [facility] Clinical Information R91.1 - Lung nodule [ICD-10-CM] 12:59 PM EDT [facility] Fine Needle Aspirate Structure of lymph node [...] Tellez MD LAB CYTOLOGY ORDERABLES Final Result Performing Organization Address City/State/[facility] Co de Phone Number [facility] [address] [place] [address] * AK AN ELECTIVE ENDOTRACHEAL AIRWAY, PB ANESTHESIA PLACEHOLDER (03/12/2025 10:22 AM EDT) Narrative Palma Marin CRNA - 03/12/2025 10:22 AM EDT Palma Marin CRNA 03/12/2025 10:32 AM Airway Date/Time: 03/12/2025 10:22 AM Reason: elective Airway not difficult General Information and Staff Patient location during procedure: OR MODEL TECHNICIAN: Palma Marin CRNA Performed: TEDDY Patient Condition [...] EDT) Case Report Sugical Pathology Consult Case: [id number] Authorizing Provider: Con Sumner MD Collected: 02/08/20255 Ordering Location: [facility] Received: 02/08/2025 1105 Pathologist: Luis Weiner DO Specimen: Colon, [id number] 02/10/2025 12:09 PM EDT [facility] Final Diagnosis DESIGNATED COLON, RECTUM; MASS, BIOPSY (OUTSIDE SLIDES; [id number]; 02/05/2025): - MODERATELY DIFFERENTIATED ADENOCARCINOMA (SEE COMMENT). - MMR BY IHC (PER REPORT): - RETAINED NUCLEAR EXPRESSION OF ALL FOUR PROTEINS (MLH1, PMS2, MSH2 AND MSH6). 02/10/2025 12:09 PM EDT [facility] at 1209 EDT Comment Correlation with endoscopic findings and imaging is recommended to determine site of tumor (colon vs rectum) given specimen designation. 02/10/2025 12:09 PM EDT [facility] Clinical Information K62.5 - Hemorrhage of anus and rectum [ICD-10-CM] 02/10/2025 12:09 PM EDT [facility] Gross Description A. [id number] Received along with a corresponding pathology report from [facility]ology & Cytology Laboratory are 5 slide(s) labeled outside case: [id number] collected on 01/31/2025. 02/10/2025 12:09 PM EDT [facility] Note: A resident was involved in the service. I attest I examined the relevant preparations for the specimens and confirmed the diagnosis or interpretation. 02/10/2025 12:09 PM EDT [facility] Tissue Colon structure / Unknown 02/08/2025 11:05 AM EDT 02/08/2025 11:05 AM EDT Con Sumner MD LAB PATHOLOGY ORDERABLES Final Result Performing Organization Address City/[facility]/ZIP Co de Phone Number [facility] [address] [place] [address] * CEA (02/05/2025 11:54 AM EDT) CEA, Serum <1.8 <4.0 ng/mL 02/05/2025 1:23 PM EDT [facility] Blood Venous blood specimen / Unknown Venipuncture / Unknown 02/05/2025 11:54 AM EDT 02/05/2025 12:43 PM EDT Narrative [facility] - 02/05/2025 1:23 PM EDT Normal range for smokers: < 5.5 ng/ml Normal range for non-smokers: <=4.0 ng/ml Performed by Maged electrochemiluminescent immunoassay. Results obtained with different test methods or kits cannot be used interchangeably. us Con Sumner MD LAB BLOOD ORDERABLES Final Res ult Performing Organization Address City/[facility]/ZIP Co de Phone Number [facility] [address] [place] [address] * CT OUTSIDE IMAGES (01/08/2025 8:49 PM [...] Date Autogenerated Problem 02/28/2025 Insurance Care Teams Financial Representative Relationship Specialty Start Date End Date Comfort Siddiqi APRN [address] [place] [address] PCP - General 03/12/25 Km Wooten MD [address] [address] Consulting Physician Radiation Oncology 02/14/25
--- OUTSIDE RECORDS SUMMARY | 2025-04-10 08:55 | XMS_ITS | Encounter Summary ---
Author Organization Healthcare Address [address] [place] [address] Care Team Providers Care Nursing Technician Name Role Phone Km Wooten MD Unavailable [phone] Comfort Siddiqi APRN Primary Care Provider [phone] Encounter Details Date Type Department Care Team (Late st Contact Info) Description 03/22/2025 Orders Only PAV CC Radiation [address] [id number] [place] [address] Radiation Oncology, Physician, [address] [place], [place] [id number] Social History Tobacco Use Types Packs/Day Years [...] EDT Appointment PAV CC Radiation [address] [place] [address] 04/11/2025 2:10 PM EDT Appointment PAV CC Radiation [address] [place] [address] 04/12/2025 2:10 PM EDT Appointment PAV CC Radiation [address] [place] [address] 04/15/2025 2:10 PM EDT Appointment PAV CC Radiation [address] [place] [address] 04/16/2025 2:10 PM EDT Appointment PAV CC Radiation [address] [place] [address] 04/17/2025 2:10 PM EDT Appointment PAV CC Radiation [address] [place] [address] 04/18/2025 2:10 PM EDT Appointment PAV CC Radiation [address] [place] [address] 04/19/2025 2:10 PM EDT Appointment PAV CC Radiation [address] [place] [phone] 04/22/2025 2:10 PM EDT Appointment PAV CC Radiation [address] 04/23/2025 2:10 PM EDT Appointment PAV CC Radiation [address] [phone] 04/24/2025 2:10 PM EDT Appointment PAV CC Radiation [address] [phone] documented as of this encounter Goals Goal [...] ONCOLOGY Reference Point Dosage Given to Date [id number] Gy ARIA RADIATION ONCOLOGY Reference Point Session Dosage Given [id number] Gy ARIA RADIATION ONCOLOGY Plan ID [id number] [...] as of this encounter Care Teams Nursing Technician Relationship Specialty Start Date End Date Comfort Siddiqi APRN [address] [place] [address] PCP - General 03/12/25 Km Wooten MD [address] [place] [id number] [place] [address] Consulting Physician Radiation Oncology 02/14/25 documented as of this encounter
--- OUTSIDE RECORDS SUMMARY | 2025-04-10 08:55 | XMS_ITS | Encounter Summary ---
Author Organization [facility] Address [address] [place] [address] Care Team Providers Care Pharmacist Manager Name Role Phone Tejal Saeed APRN Primary Care Provider [phone] Km Wooten MD Unavailable [phone] Encounter Details Date Type Department Care Team (Late st Contact Info) Description 02/26/2025 Telephone [facility] [address], [address] [place] [address] Perlita Her I, RN [facility] Social History Tobacco [...] PAV CC Radiation [address] [phone] 04/11/2025 2:10 PM EDT Appointment PAV CC Radiation [address] [phone] 04/12/2025 2:10 PM EDT Appointment PAV CC Radiation [address] [address] 04/15/2025 2:10 PM EDT Appointment PAV CC Radiation [address] [address] 04/16/2025 2:10 PM EDT Appointment PAV CC Radiation [address] [address] 04/17/2025 2:10 PM EDT Appointment PAV CC Radiation [address] [address] 04/18/2025 2:10 PM EDT Appointment PAV CC Radiation [address] [address] 04/19/2025 2:10 PM EDT Appointment PAV CC Radiation [address] [address] 04/22/2025 2:10 PM EDT Appointment PAV CC Radiation [address] [phone] 04/23/2025 2:10 PM EDT Appointment PAV CC Radiation [address] [address] 04/24/2025 2:10 PM EDT Appointment PAV CC Radiation [address] [address] documented as of this encounter Visit Diagnoses [...] documented as of this encounter Care Teams Pharmacist Manager Relationship Specialty Start Date End Date Tejal Saeed APRN [address] [place] [address] PCP - General 11/07/20 03/11/25 Km Wooten MD 800 [facility] C[address]D [place] [address] Consulting Physician Radiation Oncology 02/14/25 documented as of this encounter
--- OUTSIDE RECORDS SUMMARY | 2025-04-10 08:55 | XMS_ITS | Encounter Summary ---
Author Organization [facility] Address [address] [place] [address] Care Team Providers Care Radio News Writer Name Role Phone Tejal Saeed APRN Primary Care Provider [phone] Km Wooten MD Unavailable [phone] Encounter Details Date Type Department Care [...] Appointment PAV CC Radiation [address] [address] 04/11/2025 2:10 PM EDT Appointment PAV CC Radiation [address] [address] 04/12/2025 2:10 PM EDT Appointment PAV CC Radiation [address] [address] 04/15/2025 2:10 PM EDT Appointment PAV CC Radiation [address] [address] 04/16/2025 2:10 PM EDT Appointment PAV CC Radiation [address] [address] 04/17/2025 2:10 PM EDT Appointment PAV CC Radiation [address] [address] 04/18/2025 2:10 PM EDT Appointment PAV CC Radiation [address] [address] 04/19/2025 2:10 PM EDT Appointment PAV CC Radiation [address] [address] 04/22/2025 2:10 PM EDT Appointment PAV CC Radiation [address] [address] 04/23/2025 2:10 PM EDT Appointment PAV CC Radiation [address] [address] 04/24/2025 2:10 PM EDT Appointment PAV CC Radiation [address] [id number] [place] [address] documented as of this encounter Goals Goal [...] documented as of this encounter Care Teams Radio News Writer Relationship Specialty Start Date End Date Tejal Saeed APRN [facility] [place] [address] PCP - General 11/07/20 03/11/25 Km Wooten MD [address] [place] [address] Consulting Physician Radiation Oncology 02/14/25 documented as of this encounter
--- OUTSIDE RECORDS SUMMARY | 2025-04-10 08:55 | XMS_ITS | Encounter Summary ---
Author Organization [facility] Address [address] [place] [address] Care Team Providers Care Heel Stainer Name Role Phone Tejal Saeed APRN Primary Care Provider [phone] Km Wooten MD Unavailable [phone] Comfort Siddiqi APRN Primary Care Provider [phone] Encounter Details Date Type Department Care Team (Late st Contact Info) Description 01/08/2025 Orders Only External Location [address] [place] [address] Provider, External Social History Tobacco [...] PM EDT Appointment PAV CC Radiation [address] [address] 04/11/2025 2:10 PM EDT Appointment PAV CC Radiation [address] [address] 04/12/2025 2:10 PM EDT Appointment PAV CC Radiation [address] [address] 04/15/2025 2:10 PM EDT Appointment PAV CC Radiation [address] [address] 04/16/2025 2:10 PM EDT Appointment PAV CC Radiation [address] [address] 04/17/2025 2:10 PM EDT Appointment PAV CC Radiation [address] [address] 04/18/2025 2:10 PM EDT Appointment PAV CC Radiation [address] [address] 04/19/2025 2:10 PM EDT Appointment PAV CC Radiation [address] [address] 04/22/2025 2:10 PM EDT Appointment PAV CC Radiation [address] [address] 04/23/2025 2:10 PM EDT Appointment PAV CC Radiation [address] [address] 04/24/2025 2:10 PM EDT Appointment PAV CC Radiation [address] [address] documented as of this encounter Procedures Procedure [...] on filedocumented in this encounter Care Teams Heel Stainer Relationship Specialty Start Date End Date Tejal Saeed APRN [address] [place] [address] PCP - General 11/07/20 03/11/25 Comfort Siddiqi APRN [address] [place] [address] PCP - General 03/12/25 Km Wooten MD 800 [facility] [address] [place] [address] Consulting Physician Radiation Oncology 02/14/25 documented as of this encounter
--- OUTSIDE RECORDS SUMMARY | 2025-04-10 08:55 | XMS_ITS | Encounter Summary ---
Author Organization Healthcare Address [address] [place] [address] Care Team Providers Care Fingernail Sculptor Name Role Phone Km Wooten MD Unavailable [phone] Comfort Siddiqi APRN Primary Care Provider [phone] Encounter Details Date Type Department Care Team (Late st Contact Info) Description 03/21/2025 Orders Only PAV CC Radiation [address] [id number] [place] [address] Radiation Oncology, Physician, [address] [place], [place] [id number] Social History Tobacco Use Types Packs/Day Years [...] EDT Appointment PAV CC Radiation [address] [place] [address] 04/11/2025 2:10 PM EDT Appointment PAV CC Radiation [address] [place] [address] 04/12/2025 2:10 PM EDT Appointment PAV CC Radiation [address] [place] [address] 04/15/2025 2:10 PM EDT Appointment PAV CC Radiation [address] [place] [address] 04/16/2025 2:10 PM EDT Appointment PAV CC Radiation [address] [place] [address] 04/17/2025 2:10 PM EDT Appointment PAV CC Radiation [address] [place] [address] 04/18/2025 2:10 PM EDT Appointment PAV CC Radiation [address] [place] [address] 04/19/2025 2:10 PM EDT Appointment PAV CC Radiation [address] [place] [phone] 04/22/2025 2:10 PM EDT Appointment PAV CC Radiation [address]0001 04/23/2025 2:10 PM EDT Appointment PAV CC Radiation [address] [phone] 04/24/2025 2:10 PM EDT Appointment PAV CC Radiation [address] [address] documented as of this encounter Goals Goal [...] ONCOLOGY Reference Point Dosage Given to Date [id number] Gy ARIA RADIATION ONCOLOGY Reference Point Session Dosage Given [id number] Gy ARIA RADIATION ONCOLOGY Plan ID [id number] [...] 03/21/2025 2:11 PM EDT Physician Radiation Oncology MD RADIATION [...] documented as of this encounter Care Teams Fingernail Sculptor Relationship Specialty Start Date End Date Comfort Siddiqi APRN [address] [place] [address] PCP - General 03/12/25 Km Wooten MD [address] [place] [address] [place] [address] Consulting Physician Radiation Oncology 02/14/25 documented as of this encounter
--- OUTSIDE RECORDS SUMMARY | 2025-04-10 08:55 | XMS_ITS | Encounter Summary ---
Author Organization [facility] Address [address] [place] [address] Care Team Providers Care Environmental Conservation Professor Name Role Phone Km Wooten MD Unavailable [phone] Comfort Siddiqi APRN Primary Care Provider [phone] Encounter Details Date Type Department Care Team [...] Appointment PAV CC Radiation [id number] [place] [address] 04/11/2025 2:10 PM EDT Appointment PAV CC Radiation [address]0001 04/12/2025 2:10 PM EDT Appointment PAV CC Radiation [address] [address] 04/15/2025 2:10 PM EDT Appointment PAV CC Radiation [address] [place] [phone] 04/16/2025 2:10 PM EDT Appointment PAV CC Radiation [address]0001 04/17/2025 2:10 PM EDT Appointment PAV CC Radiation [address] [place] [phone] 04/18/2025 2:10 PM EDT Appointment PAV CC Radiation [address] [place] [phone] 04/19/2025 2:10 PM EDT Appointment PAV CC Radiation [address] [place] [phone] 04/22/2025 2:10 PM EDT Appointment PAV CC Radiation [address] [phone] 04/23/2025 2:10 PM EDT Appointment PAV CC Radiation [address] [address] 04/24/2025 2:10 PM EDT Appointment PAV CC Radiation [address] [place] [phone] documented as of this encounter Goals Goal [...] documented as of this encounter Care Teams Environmental Conservation Professor Relationship Specialty Start Date End Date Comfort Siddiqi APRN 9 [place] [address] PCP - General 03/12/25 Km Wooten MD [address] [place] [address] Consulting Physician Radiation Oncology 02/14/25 documented as of this encounter
--- OUTSIDE RECORDS SUMMARY | 2025-04-10 08:55 | XMS_ITS | Encounter Summary ---
Author Organization Healthcare Address [address] [place] [address] Care Team Providers Care Engine Lathe Operator Name Role Phone Km Wooten MD Unavailable [phone] Comfort Siddiqi APRN Primary Care Provider [phone] Encounter Details Date Type Department Care Team (Late st Contact Info) Description 03/29/2025 Orders Only PAV CC Radiation [address] [id number] [place] [address] Radiation Oncology, Physician, [address] [place], [place] [id number] Social History Tobacco Use Types Packs/Day Years [...] EDT Appointment PAV CC Radiation [address] [place] [address] 04/11/2025 2:10 PM EDT Appointment PAV CC Radiation [address] [place] [address] 04/12/2025 2:10 PM EDT Appointment PAV CC Radiation [address] [place] [address] 04/15/2025 2:10 PM EDT Appointment PAV CC Radiation [address] [place] [address] 04/16/2025 2:10 PM EDT Appointment PAV CC Radiation [address] [place] [address] 04/17/2025 2:10 PM EDT Appointment PAV CC Radiation [address] [place] [address] 04/18/2025 2:10 PM EDT Appointment PAV CC Radiation [address] [place] [address] 04/19/2025 2:10 PM EDT Appointment PAV CC Radiation [address] [place] [phone] 04/22/2025 2:10 PM EDT Appointment PAV CC Radiation [address]0001 04/23/2025 2:10 PM EDT Appointment PAV CC Radiation [address] [phone] 04/24/2025 2:10 PM EDT Appointment PAV CC Radiation [address] [phone] documented as of this encounter Goals Goal Patient Goal Type Associated Problems Recent Progress Patient-Stated? Author Autogenerat ed Goal Care Plan Autogenerated Problem No Lisa Johnston documented as of this encounter Procedures Procedure Name Priority Date/Time Associated Diagnosis Comments RAD ONC ARIA SESSION SUMMARY Routine 03/29/2025 2:27 PM EDT documented in this encounter Results * Rad Onc Aria Session Summary (03/29/2025 [...] ONCOLOGY Reference Point Dosage Given to Date [id number] Gy ARIA RADIATION ONCOLOGY Reference Point Session Dosage Given [id number] Gy ARIA RADIATION ONCOLOGY Plan ID [id number] [...] 03/29/2025 2:27 PM EDT Physician Radiation Oncology MD RADIATION [...] documented as of this encounter Care Teams Engine Lathe Operator Relationship Specialty Start Date End Date Comfort Siddiqi APRN [address] [place] [address] PCP - General 03/12/25 Km Wooten MD [address] [place] [address]754D [place] [address] Consulting Physician Radiation Oncology 02/14/25 documented as of this encounter
--- OUTSIDE RECORDS SUMMARY | 2025-04-10 08:56 | XMS_ITS | Encounter Summary ---
Author Organization [facility] Address [address] [address]36 Care Team Providers Care Revenue Analyst Name Role Phone Tejal Saeed APRN Primary Care Provider [phone] Km Wooten MD Unavailable [phone] Reason for Referral * Consultation (Routine) - Closed Specialty Diagnoses / Procedures Referred By Contac t Referred To Contact Radiation Oncology Diagnoses Malignant neoplasm of rectum (CMS/HCC) Con Sumner MD [address] [address] Phone: tel: fax: [facility] CC Radiation [address] [place] [place] [address] Phone: tel: fax: Referral ID Status Reason Start Date Expiration Date V isits Requested Visits Authorized [id number] Closed Specialty Services Required 02/14/2025 08/16/2026 1 1 Scheduling Instructions Rectal cancer - needs total neoadjuvant therapy. Schedule radiation oncology at [facility] Scheduling medical oncology with Dr. Kaleb Bill at [facility]. * Consultation (Routine) - Authorized Specialty Diagnoses / Procedures Referred By Contac t Referred To Contact Medical Oncology Diagnoses Malignant neoplasm of rectum (CMS/HCC) oCn Sumner MD [address] [place] [address] Phone: tel: fax: Referral ID Status Reason Start Date Expiration Date Visits Requested Visits Authorized [id number] Authorized Specialty Services Required 02/14/2025 08/16/2026 1 1 Scheduling Instructions Rectal Cancer - needs total neoadjuvant therapy. Schedule medical oncology with Dr.Michael Bill at [facility] [phone]. Encounter Details Date Type Department Care Team (Latest Contact Info) Description 02/14/2025 Orders Only PAV Multidisciplinary Oncology Clinic [address] [place] [address] Con Sumner MD [address] [address] Malignant neoplasm of rectum (CMS/HCC) [...] PM EDT Appointment PAV CC Radiation [address] [phone] 04/11/2025 2:10 PM EDT Appointment PAV CC Radiation [address] [address] 04/12/2025 2:10 PM EDT Appointment PAV CC Radiation [address] [phone] 04/15/2025 2:10 PM EDT Appointment PAV CC Radiation [address] [address] 04/16/2025 2:10 PM EDT Appointment PAV CC Radiation [address] [address] 04/17/2025 2:10 PM EDT Appointment PAV CC Radiation [address] [address] 04/18/2025 2:10 PM EDT Appointment PAV CC Radiation [address] [address] 04/19/2025 2:10 PM EDT Appointment PAV CC Radiation [address] [address] 04/22/2025 2:10 PM EDT Appointment PAV CC Radiation [address] [address] 04/23/2025 2:10 PM EDT Appointment PAV CC Radiation [address] [address] 04/24/2025 2:10 PM EDT Appointment PAV CC Radiation [address] [address] Scheduled Referrals Name Type Priority Associated Diagnoses [...] documented as of this encounter Care Teams Revenue Analyst Relationship Specialty Start Date End Date Tejal Saeed APRN [address] [place] [address] PCP - General 11/07/20 03/11/25 Km Wooten MD 800 [facility] [address] [place] [address] Consulting Physician Radiation Oncology 02/14/25 documented as of this encounter
--- OUTSIDE RECORDS SUMMARY | 2025-04-10 08:56 | XMS_ITS | Encounter Summary ---
Author Organization [facility] Address [address] [place] [address] Care Team Providers Care Health Education Specialist Name Role Phone Km Wooten MD Unavailable [phone] Comfort Siddiqi APRN Primary Care Provider [phone] Encounter Details Date Type Department Care Team [...] Appointment PAV CC Radiation [id number] [place] [address] 04/11/2025 2:10 PM EDT Appointment PAV CC Radiation [address]0001 04/12/2025 2:10 PM EDT Appointment PAV CC Radiation [address] [phone] 04/15/2025 2:10 PM EDT Appointment PAV CC Radiation [address] [place] [phone] 04/16/2025 2:10 PM EDT Appointment PAV CC Radiation [address]0001 04/17/2025 2:10 PM EDT Appointment PAV CC Radiation [address] [place] [phone] 04/18/2025 2:10 PM EDT Appointment PAV CC Radiation [address] [place] [phone] 04/19/2025 2:10 PM EDT Appointment PAV CC Radiation [address] [place] [phone] 04/22/2025 2:10 PM EDT Appointment PAV CC Radiation [address] [phone] 04/23/2025 2:10 PM EDT Appointment PAV CC Radiation [address] [phone] 04/24/2025 2:10 PM EDT Appointment PAV CC Radiation [address] [place] [phone] documented as of this encounter Goals Goal [...] documented as of this encounter Care Teams Health Education Specialist Relationship Specialty Start Date End Date Comfort Siddiqi APRN [address] [place] [address] PCP - General 03/12/25 Km Wooten MD [address] [place] [address] Consulting Physician Radiation Oncology 02/14/25 documented as of this encounter
--- OUTSIDE RECORDS SUMMARY | 2025-04-10 08:56 | XMS_ITS | Encounter Summary ---
Author Organization [facility] Address [address] [id number] Care Team Providers Care Supervisor Beehive Kiln Name Role Phone Tejal Saeed APRN Primary Care Provider [phone] Km Wooten MD Unavailable [phone] Comfort Siddiqi APRN Primary Care Provider [phone] Encounter Details Date Type Department Care Team (Late st Contact Info) Description 02/08/2025 Lab Requisition [facility] H [facility] [address] [place] [address] Con Sumner MD [address] [facility] [address] [place] [address] Hemorrhage of anus and rectum Social History [...] Appointment [facility] Radiation [address] [place] [address] 04/11/2025 2:10 PM EDT Appointment [facility] Radiation [address] [phone] 04/12/2025 2:10 PM EDT Appointment [facility] Radiation [address] [address] 04/15/2025 2:10 PM EDT Appointment [facility] Radiation [address] TF[address]O [place] [address] 04/16/2025 2:10 PM EDT Appointment [facility] Radiation [address] [place] [phone] 04/17/2025 2:10 PM EDT Appointment [facility] Radiation [address] [phone] 04/18/2025 2:10 PM EDT Appointment [facility] Radiation [address] [address] 04/19/2025 2:10 PM EDT Appointment [facility] Radiation [address] [place] [phone] 04/22/2025 2:10 PM EDT Appointment [facility] Radiation [address] [phone] 04/23/2025 2:10 PM EDT Appointment [facility] Radiation [address] [phone] 04/24/2025 2:10 PM EDT Appointment [facility] Radiation [address] [address] documented as of this encounter Procedures Procedure Name Priority Date/Time Associated Diagnosis Comments SURGICAL PATHOLOGY CONSULT Routine 02/08/2025 11:05 AM EDT Hemorrhage of anus and rectum documented in this encounter Results * Surgical Pathology Consult (02/08/2025 11:05 AM EDT) Case Report Sugical Pathology Consult Case: [id number] Authorizing Provider: Con Sumner MD Collected: 02/08/2025 1105 Ordering Location: [facility] Lab Received: 02/08/2025 1105 Pathologist: Luis Weiner DO Specimen: Colon, [id number] 02/10/2025 12:09 PM EDT [facility] Final Diagnosis DESIGNATED COLON, RECTUM; MASS, BIOPSY (OUTSIDE SLIDES; [id number]; 02/05/2025): - MODERATELY DIFFERENTIATED ADENOCARCINOMA (SEE COMMENT). - MMR BY IHC (PER REPORT): - RETAINED NUCLEAR EXPRESSION OF ALL FOUR PROTEINS (MLH1, PMS2, MSH2 AND MSH6). 02/10/2025 12:09 PM EDT [facility] at 1209 EDT Comment Correlation with endoscopic findings and imaging is recommended to determine site of tumor (colon vs rectum) given specimen designation. 02/10/2025 12:09 PM EDT [facility] Clinical Information K62.5 - Hemorrhage of anus and rectum [ICD-10-CM] 02/10/2025 12:09 PM EDT [facility] Gross Description A. [id number] Received along with a corresponding pathology report from [facility] Cytology Laboratory are 5 slide(s) labeled outside case: [id number] collected on 01/31/2025. 02/10/2025 12:09 PM EDT [facility] Note: A resident was involved in the service. I attest I examined the relevant preparations for the specimens and confirmed the diagnosis or interpretation. 02/10/2025 12:09 PM EDT [facility] Tissue Colon structure / Unknown 02/08/2025 11:05 AM EDT 02/08/2025 11:05 AM EDT us Con Sumner MD LAB PATHOLOGY ORDERABLES Final Result [facility] [address] [place] [address] documented in this encounter Visit Diagnoses Diagnosis [...] as of this encounter Care Teams Supervisor Beehive Kiln Relationship Specialty Start Date End Date Tejal Saeed APRN [address] [place], [place] [id number] PCP - General 11/07/20 03/11/25 Comfort Siddiqi APRN [address] [place] [address] PCP - General 03/12/25 Km Wooten MD [address] [phone] Consulting Physician Radiation Oncology 02/14/25 documented as of this encounter
--- OUTSIDE RECORDS SUMMARY | 2025-04-10 08:56 | XMS_ITS | Encounter Summary ---
Author Organization [facility] Address [address] [id number] Care Team Providers Care Member Services Representative Name Role Phone Tejal Saeed APRN Primary Care Provider [phone] Km Wooten MD Unavailable [phone] Encounter Details Date Type Department Care [...] Appointment [facility] Radiation [address] [id number] [place] [address] 04/11/2025 2:10 PM EDT Appointment [facility] CC Radiation [address] 04/12/2025 2:10 PM EDT Appointment [facility] Radiation [address] [phone] 04/15/2025 2:10 PM EDT Appointment [facility] Radiation [address]0001 04/16/2025 2:10 PM EDT Appointment [facility] CC Radiation [address] 04/17/2025 2:10 PM EDT Appointment [facility] CC Radiation [address] [phone] 04/18/2025 2:10 PM EDT Appointment [facility] Radiation [address] 04/19/2025 2:10 PM EDT Appointment [facility] Radiation [address] [phone] 04/22/2025 2:10 PM EDT Appointment [facility] Radiation [address] [phone] 04/23/2025 2:10 PM EDT Appointment [facility] Radiation [address] [place] [phone] 04/24/2025 2:10 PM EDT Appointment [facility] Radiation [address] [address] documented as of this encounter Goals Goal [...] documented as of this encounter Care Teams Member Services Representative Relationship Specialty Start Date End Date Tejal Saeed APRN [address] [place] [address] PCP - General 11/07/20 03/11/25 Km Wooten MD [address] [facility] C[address] [place] [address] Consulting Physician Radiation Oncology 02/14/25 documented as of this encounter
--- OUTSIDE RECORDS SUMMARY | 2025-04-10 08:56 | XMS_ITS | Encounter Summary ---
Author Organization [facility] Address [address] [place] [address] Care Team Providers Care Hims Clerk Name Role Phone Tejal Saeed APRN Primary Care Provider [phone] Encounter Details Date Type Department Care Team [...] Appointment [facility] Radiation [address] BH[address]M [place] [address] 04/11/2025 2:10 PM EDT Appointment [facility] Radiation [address] [address] 04/12/2025 2:10 PM EDT Appointment [facility] Radiation [address] [phone] 04/15/2025 2:10 PM EDT Appointment [facility] Radiation [address] [address] 04/16/2025 2:10 PM EDT Appointment [facility] Radiation [address] [address] 04/17/2025 2:10 PM EDT Appointment [facility] Radiation [address] [address] 04/18/2025 2:10 PM EDT Appointment [facility] Radiation [address] [address] 04/19/2025 2:10 PM EDT Appointment [facility] Radiation [address] [address] 04/22/2025 2:10 PM EDT Appointment [facility] Radiation [address] [address] 04/23/2025 2:10 PM EDT Appointment [facility] Radiation [address] [address] 04/24/2025 2:10 PM EDT Appointment [facility] Radiation [address] [address] documented as of this encounter Visit Diagnoses [...] documented as of this encounter Care Teams Hims Clerk Relationship Specialty Start Date End Date Tejal Saeed APRN [facility] [place] [address] PCP - General 11/07/20 03/11/25 documented as of this encounter
--- OUTSIDE RECORDS SUMMARY | 2025-04-10 08:56 | XMS_ITS | Encounter Summary ---
Author Organization [facility] Address [address] [id number] Care Team Providers Care Steel Box Toe Inserter Name Role Phone Tejal Saeed APRN Primary Care Provider [phone] Km Wooten MD Unavailable [phone] Encounter Details Date Type Department Care Team (Late st Contact Info) Description 02/14/2025 Telephone [facility] CC Radiation [address] [facility] TO[address]26L [place] [address] Km Wooten MD [address] [place] [address] Social History Tobacco Use Types [...] [facility] CC Radiation [address] [address] 04/11/2025 2:10 PM EDT Appointment [facility] Radiation [address] [address] 04/12/2025 2:10 PM EDT Appointment [facility] Radiation [address] [address] 04/15/2025 2:10 PM EDT Appointment [facility] Radiation [address] [address] 04/16/2025 2:10 PM EDT Appointment [facility] Radiation [address] [address] 04/17/2025 2:10 PM EDT Appointment [facility] Radiation [address] [address] 04/18/2025 2:10 PM EDT Appointment [facility] Radiation [address] [phone] 04/19/2025 2:10 PM EDT Appointment [facility] Radiation [address] [address] 04/22/2025 2:10 PM EDT Appointment [facility] Radiation [address] [address] 04/23/2025 2:10 PM EDT Appointment [facility] Radiation [address] [address] 04/24/2025 2:10 PM EDT Appointment [facility] Radiation [address] [address] documented as of this encounter Visit Diagnoses [...] as of this encounter Care Teams Steel Box Toe Inserter Relationship Specialty Start Date End Date Tejal Saeed APRN [address] [place] [address] PCP - General 11/07/20 03/11/25 Km Wooten MD [address] [address] Consulting Physician Radiation Oncology 02/14/25 documented as of this encounter
--- OUTSIDE RECORDS SUMMARY | 2025-04-10 08:56 | XMS_ITS | Encounter Summary ---
Author Organization [facility] Address [address] [place] [address] Care Team Providers Care Hourly Caregiver Name Role Phone Tejal Saeed APRN Primary Care Provider [phone] Km Wooten MD Unavailable [phone] Reason for Referral * Consultation (Urgent) - Closed Specialty Diagnoses / Procedures Referred By Contwagner maria Referred To Contact Urology Diagnoses Elevated PSA Km Wooten MD [address] [place] [address] Phone: tel: fax: [facility] [address] [place] [address] Phone: tel: fax: Referral ID Status Reason Start Date Expiration Date V isits Requested Visits Authorized [id number] Closed Specialty Services Required 02/18/2025 08/20/2026 1 1 Scheduling Instructions History of elevated PSA of 8.7, concern for ? Prostate cancer in a gentleman with newly diagnosed rectal cancer Encounter Details Date Type Department Care Team (Late st Contact Info) Description 02/18/2025 Orders Only [facility] Radiation [address] [id number] [place] [address] Km Wooten MD [address] [place] [address] Elevated PSA (Primary Dx) Social History Tobacco [...] EDT Appointment [facility] Radiation [address] [address] 04/11/2025 2:10 PM EDT Appointment [facility] CC Radiation [address] [address] 04/12/2025 2:10 PM EDT Appointment [facility] Radiation [address] [address] 04/15/2025 2:10 PM EDT Appointment [facility] Radiation [address] [address] 04/16/2025 2:10 PM EDT Appointment [facility] CC Radiation [address] [address] 04/17/2025 2:10 PM EDT Appointment [facility] Radiation [address] [address] 04/18/2025 2:10 PM EDT Appointment [facility] Radiation [address] [address] 04/19/2025 2:10 PM EDT Appointment [facility] CC Radiation [address] [address] 04/22/2025 2:10 PM EDT Appointment [facility] Radiation [address] GI141N [place] [address] 04/23/2025 2:10 PM EDT Appointment [facility] Radiation [address] BD109Z [place] [address] 04/24/2025 2:10 PM EDT Appointment [facility] Radiation [address] NI766P [place] [address] Scheduled Referrals Name Type Priority Associated Diagnoses [...] documented as of this encounter Care Teams Hourly Caregiver Relationship Specialty Start Date End Date Tejal Saeed APRN [address] [place] [address] PCP - General 11/07/20 03/11/25 Km Wooten MD [address] [facility] C114D [place] [address] Consulting Physician Radiation Oncology 02/14/25 documented as of this encounter
--- OUTSIDE RECORDS SUMMARY | 2025-04-10 08:56 | XMS_ITS | Encounter Summary ---
Author Organization [facility] Address [address] [place] [address] Care Team Providers Care Leadite Heater Name Role Phone Km Wooten MD Unavailable [phone] Comfort Siddiqi APRN Primary Care Provider [phone] Encounter Details Date Type Department Care Team [...] Appointment [facility] Radiation [address] KE365A [place] [address] 04/11/2025 2:10 PM EDT Appointment [facility] CC Radiation [address]0001 04/12/2025 2:10 PM EDT Appointment [facility] CC Radiation [address] [phone] 04/15/2025 2:10 PM EDT Appointment [facility] CC Radiation [address] [place] [phone] 04/16/2025 2:10 PM EDT Appointment [facility] CC Radiation [address]0001 04/17/2025 2:10 PM EDT Appointment [facility] CC Radiation [address] [place] [phone] 04/18/2025 2:10 PM EDT Appointment [facility] CC Radiation [address] [address] 04/19/2025 2:10 PM EDT Appointment [facility] CC Radiation [address] [place] [phone] 04/22/2025 2:10 PM EDT Appointment [facility] CC Radiation [address] [address] 04/23/2025 2:10 PM EDT Appointment [facility] CC Radiation [address] [address] 04/24/2025 2:10 PM EDT Appointment [facility] CC Radiation [address] [place] [phone] documented as of this encounter Goals Goal [...] documented as of this encounter Care Teams Leadite Heater Relationship Specialty Start Date End Date Comfort Siddiqi APRN [address] [place] [address] PCP - General 03/12/25 Km Wooten MD [address] [place] [address] Consulting Physician Radiation Oncology 02/14/25 documented as of this encounter
--- OUTSIDE RECORDS SUMMARY | 2025-04-10 08:56 | XMS_ITS | Encounter Summary ---
Author Organization [facility] Address [address] [place] [address] Care Team Providers Care Spring Assembler Name Role Phone Tejal Saeed APRN Primary Care Provider [phone] Km Wooten MD Unavailable [phone] Encounter Details Date Type Department Care Team (Late Contact Info) Description 02/14/2025 Orders Only [facility] Multid[facility] Oncology Clinic [address] [place] [address] Con Sumner MD [address] [facility] [address] [place] [address] Social History Tobacco Use Types [...] PM EDT Appointment P[facility] CC Radiation 800 [facility] RC143L [place] [address] 04/11/2025 2:10 PM EDT Appointment [facility] CC Radiation [address] [address] 04/12/2025 2:10 PM EDT Appointment [facility] CC Radiation [address] [address] 04/15/2025 2:10 PM EDT Appointment [facility] CC Radiation [address] [address] 04/16/2025 2:10 PM EDT Appointment [facility] CC Radiation [address] [address] 04/17/2025 2:10 PM EDT Appointment [facility] CC Radiation [address] [address] 04/18/2025 2:10 PM EDT Appointment [facility] CC Radiation [address] [address] 04/19/2025 2:10 PM EDT Appointment [facility] CC Radiation [address] [address] 04/22/2025 2:10 PM EDT Appointment [facility] CC Radiation [address] [address] 04/23/2025 2:10 PM EDT Appointment [facility] CC Radiation [address] [address] 04/24/2025 2:10 PM EDT Appointment [facility] CC Radiation [address] [address] documented as of this encounter Visit Diagnoses [...] documented as of this encounter Care Teams Spring Assembler Relationship Specialty Start Date End Date Tejal Saeed APRN [address]0 [place] [address] PCP - General 11/07/20 03/11/25 Km Wooten MD 800 [facility] C[address]D [place] [address] Consulting Physician Radiation Oncology 02/14/25 documented as of this encounter
--- OUTSIDE RECORDS SUMMARY | 2025-04-10 08:56 | XMS_ITS | Encounter Summary ---
Author Organization [facility] Address [address] [id number] Care Team Providers Care Acoustic Engineer Name Role Phone Tejal Saeed APRN Primary Care Provider [phone] Km Wooten MD Unavailable [phone] Encounter Details Date Type Department Care [...] Appointment [facility] CC Radiation [address] QV853N [place] [address] 04/11/2025 2:10 PM EDT Appointment [facility] CC Radiation [address] [address] 04/12/2025 2:10 PM EDT Appointment [facility] CC Radiation [address] [phone] 04/15/2025 2:10 PM EDT Appointment [facility] CC Radiation [address] [address] 04/16/2025 2:10 PM EDT Appointment [facility] CC Radiation [address] [address] 04/17/2025 2:10 PM EDT Appointment [facility] CC Radiation [address] [phone] 04/18/2025 2:10 PM EDT Appointment [facility] CC Radiation [address] [phone] 04/19/2025 2:10 PM EDT Appointment [facility] CC Radiation [address] [address] 04/22/2025 2:10 PM EDT Appointment [facility] CC Radiation [address] [address] 04/23/2025 2:10 PM EDT Appointment [facility] CC Radiation [address] [address] 04/24/2025 2:10 PM EDT Appointment [facility] CC Radiation [address] [address] documented as of this encounter Visit Diagnoses [...] documented as of this encounter Care Teams Acoustic Engineer Relationship Specialty Start Date End Date Tejal Saeed APRN 1140 [place] [address] PCP - General 11/07/20 03/11/25 Km Wooten MD [address] [address] Consulting Physician Radiation Oncology 02/14/25 documented as of this encounter
[2025-04-10 08:58] LABS: Hematocrit 40.0 % (42.0-52.0); Hemoglobin 13.1 g/dL (14.1-18.0); Immature Granulocytes % 0.8 %; Mean Corpuscular HGB Conc 32.8 g/dL (31.8-35.4); Mean Corpuscular Hemoglobin 27.1 pg (27.0-31.2); Mean Corpuscular Volume 82.6 fl (80-94); Nucleated Red Blood Cells % 0 %; Platelet Count 157 K/mm3 (142-424); Red Blood Count 4.84 M/mm3 (4.60-6.20); Red Cell Distribution Width-SD 38.3 fL; White Blood Count 4.8 K/mm3 (4.8-10.8)
[2025-04-10 10:02] LABS: Total Cells Counted 100
[2025-04-10 10:03] LABS: RBC Morphology Normal
== END 2025-04-10 23:59 | disposition home or self-care (01) ==
PROVIDERS: PCP Family Medicine; Visit Provider Internal Medicine Medical Oncology
DX: C20 Malignant neoplasm of rectum (principal)
CPT/HCPCS: 36415; 85007; 85025; 85027

== ENCOUNTER 2025-04-18 08:42 | Outpatient (CLI) | payer OTHER, SELFPAY ==
--- OUTSIDE RECORDS SUMMARY | 2025-02-19 14:44 | XMS_ITS | Encounter Summary ---
Author Organization [facility] Address [address] [id number] Care Team Providers Care Ship Laborer Name Role Phone Tejal Saeed APRN Primary Care Provider [phone] Moreno Duarte MD Unavailable [phone] Reason for Referral * Radiation Therapy (Routine) - Authorized Specialty Diagnoses / Procedures Referred By Contac t Referred To Contact Radiation Oncology Diagnoses Malignant neoplasm of rectum (CMS/HCC) Procedures Rad Onc Intent to Treat Rad Onc Intent to Treat Moreno Duarte MD [address] [address] Phone: tel: fax: [facility] 800 [facility] [address] Phone: tel: fax: Referral ID Status Reason Start Date Expiration Date Visits Requested Visits Authorized [id number] Authorized Perform Procedure 03/01/2025 08/29/2025 25 25 * Consultation (Routine) - Closed Specialty Diagnoses / Procedures Referred By Contac t Referred To Contact Pulmonology Diagnoses Malignant neoplasm of rectum (CMS/HCC) Moreno Duarte MD [address] [address] Phone: tel: fax: [facility] [address] [place] [address] Phone: tel: fax: Referral ID Status Reason Start Date Expiration Date V isits Requested Visits Authorized [id number] Closed Specialty Services Required 2025 08/21/2026 1 1 Scheduling Instructions Biopsy concerning mediastinal lymph nodes * Consultation (Routine) - Closed Specialty Diagnoses / Procedures Referred By Contac t Referred To Contact Radiation Oncology Diagnoses Malignant neoplasm of rectum (CMS/HCC) Con Sumner MD [address] [address] Phone: tel: fax: [facility] [address] [address] Phone: tel: fax: Referral ID Status Reason Start Date Expiration Date V isits Requested Visits Authorized [id number] Closed Specialty Services Required 02/14/2025 08/16/2026 1 1 Scheduling Instructions Rectal cancer - needs total neoadjuvant therapy. Schedule radiation oncology at [facility] Scheduling medical oncology with Dr. Kaleb Bill at [facility]. Reason for Visit * Reason Comments Consult * Consultation (Routine) - Closed Specialty Diagnoses / Procedures Referred By Contac t Referred To Contact Radiation Oncology Diagnoses Malignant neoplasm of rectum (CMS/HCC) Con Sumner MD [address] [address] Phone: tel: fax: [facility] [address] [address] Phone: tel: fax: Referral ID Status Reason Start Date Expiration Date V isits Requested Visits Authorized [id number] Closed Specialty Services Required 02/14/2025 08/16/2026 1 1 Encounter Details Date Type Department Care Team (Latest Contact Info) Description 2025 2:44 PM EDT - 2025 11:59 PM EDT Hospital Encounter [facility] [id number] [place] [address] Moreno Duarte MD [address] [place] [address] Malignant neoplasm of rectum (CMS/HCC) (Primary Dx) Discharge Disposition: Still a Patient Social History Tobacco Use Types Packs/Day Years Used Date Smoking Tobacco: Never Smokeless Tobacco: Never Tobacco Cessation:Counseling Given: Not Answered Alcohol Use Standard Drinks/Week Comments Yes 0 (1 standard drink = 0.6 oz pur e alcohol) Rarely PHQ-2 Answer Date Recorded Patient Health Questionnaire-2 Score 0 2025 PHQ-9 Answer Date Recorded Patient Health Questionnaire-9 Score 0 2025 AUDIT-C Answer Date Recorded Q1: How often do you have a drink containing alcohol? Never 02/28/2025 Q2: How many drinks containi ng alcohol do you have on a typical day when you are drinking? Patient does not drink Q3: How often do you have si x or more drinks on one occasion? Never 02/28/2025 Sex and Gender Information Value Date Recorded [...] documented in this encounter Functional Status * AUDIT-C Score Answer Date of Assessment Author 0 02/28/2025 2:42 PM AMORT Krystal Obando * Question Answer Date of Assessment Author Q1: How often do you have a drink containing alcohol? Never 02/28/2025 2:42 PM AMORT Krystal Obando Q2: How many drinks containing alcohol do you have on a typical day when you are drinking? Patient does not drink 02/28/2025 2:42 PM AMORT Krystal Obando Q3: How often do you have six or more drinks on one occasion? Never 02/28/2025 2:42 PM AMORT Krystal Obando * Over the past 2 weeks, how often have you been bothered by any of the following problems? Question Answer Date of Assessment Author Little interest or pleasure in doing things Not at all 2025 2:59 PM Lissa Angulo A Feeling down, depressed, or hopeless Not at all 2025 2:59 PM Lissa Angulo A Patient Health Questionnaire -2 Score 0 2025 2:59 PM Lissa Angulo A * Question Answer Date of Assessment Author Trouble falling or staying asleep, or sleeping too much Not at all 2025 2:59 PM Selena Angulo A Feeling tired or having raya le energy Not at all 2025 2:59 PM Lissa Angulo A Poor appetite or overeating Not at all [...] way Not at all 2025 2:59 PM EDT Lissa Hanley Patient Health Questionnaire -9 Score 0 2025 2:59 PM EDT Lissa Hanley * Calculated C-SSRS Risk Score (Lifetime/Recent) Answer Date of Assessment Author No Risk Indicated 2025 2:59 PM EDT Lsisa Hanley * How difficult have these problems made it for you to do your work, take care of things at home, or get along with other people? Answer Date of Assessment Author Not difficult at all 2025 2:59 PM EDT Lissa Anaya * Question Answer Date of Assessment Author 1. Wish to be (Past 1 Month) No 025 2:59 PM EDT Lissa Hanley 2. Non-Specific Active Suici negar Thoughts (Past 1 Month) No 2025 2:59 PM EDT Smiley Hanley 6. Suicidal Behavior (Lifetime) No 2:59 PM EDT Lissa Hanley documented as of this encounter Medications at Time of Discharge atorvastatin (Lipitor) 20 MG tablet Take 1 tablet by mouth daily. 01/11/2025 cetirizine (ZyrTEC) 10 MG tablet Take 1 tablet by mouth daily. 02/14/2025 DOXYCYCLINE MONOHYDRATE PO Take 100 mg by mouth 2 times a day. fluticasone (Flonase) 50 MCG/ACT nasal spray use 1 spray(s) in each nostril once daily 02/14/2025 hydrocortisone (Anusol-HC) 25 MG suppository Insert 1 suppository into the rectum 2 times a day. documented as of this encounter Miscellaneous Notes * Addendum Note - Moreno Duarte MD - 2025 3:00 PM EDTAddended by: MORENO DUARTE on: 03/01/2025 08:41 AM Modules accepted: Orders * Addendum Note - Moreno Duarte MD - 2025 3:00 PM EDTEncounter addended by: Moreno Duarte MD on: 03/01/2025 8:43 AM Actions taken: Clinical Note Signed * Progress Notes - Joel Xie MD [...] 02/05/25 COLON, RECTUM; MASS, BIOPSY (OUTSIDE SLIDES; [id number]; 02/05/2025): - MODERATELY DIFFERENTIATED ADENOCARCINOMA (SEE COMMENT). [...] was dicussed in a multidisciplinary fashion with Medical Oncology. Scheduled tomorrow with Dr. Kaleb Bill at [facility] in [place]. Referral sent to Pulmonology for consideration of biopsy for mediastinal lymph nodes. Thank you for allowing us to participate in the care of Carlos Tripp. Future Appointments Date Time Provider Department Center 03/01/2025 9:00 AM Moreno Duarte MD [facility] Orders Placed This Encounter Procedures Comprehensive metabolic [...] Heart attack Father Cancer Other Maternal Uncle documented in this encounter Plan of Treatment Upcoming Encounters Date Type Department Care Team (Late st Contact Info) Description 04/18/2025 2:10 PM EDT Appointment [facility] [address] [address] 04/19/2025 2:10 PM EDT Appointment [facility] [address] [address] 04/22/2025 2:10 PM EDT Appointment [facility] [address] [address] 04/23/2025 2:10 PM EDT Appointment [facility] [address] [address] 04/24/2025 2:10 PM EDT Appointment [facility] [address] [address] Scheduled Orders Name Type Priority Associated Diagnoses [...] until 08/23/2026 documented as of this encounter Goals Goal Patient Goal Type Associated Problems Recent Progress Patient-Stated? Author Autogenerat ed Goal Care Plan Autogenerated Problem No Lisa Johnston documented as of this encounter Visit Diagnoses Diagnosis Malignant neoplasm of rectum (CMS/HCC)- Primary Malignant neoplasm of rectum documented in this encounter Additional Health Concerns Active Problems Noted Date Diagnosed Date Autogenerated Problem 02/28/2025 Assessment Noted Time PHQ-9 Depression Total Score: 0 02/20/20 2:59 PM EDT A fall risk assessment has been complete d for the patient 02/05/2025 10:24 AM EDT A Body Mass Index follow-up plan has been documented for the patient 02/05/2025 12:03 PM EDT documented as of this encounter Care Teams Ship Laborer Relationship Specialty Start Date End Date Tejal Saeed APRN [address] [place] [address] PCP - General 11/07/20 03/11/25 Moreno Duarte MD [address] [place], [place] [id number] [place] [address] Consulting Physician Radiation Oncology 02/14/25 documented as of this encounter
--- OUTSIDE RECORDS SUMMARY | 2025-02-25 11:50 | XMS_ITS | Encounter Summary ---
Author Organization [facility] Address [address] [id number] Care Team Providers Care Matrix Repairer Name Role Phone Tejal Saeed APRN Primary Care Provider [phone] Km Wooten MD Unavailable [phone] Encounter Details Date Type Department Care Team (Latest Contact Info) Description 02/25/2025 11:50 AM EDT - 02/25/2025 11:59 PM EDT Hospital Encounter [facility] [id number] [place] [address] Discharge Disposition: Still a Patient Social History [...] Appointment [facility] [id number] [place] [address] 04/19/2025 2:10 PM EDT Appointment [facility] [address] SP[address] [place] [address] 04/22/2025 2:10 PM EDT Appointment [facility] [address] [id number] [place] [address] 04/23/2025 2:10 PM EDT Appointment [facility] [address] [id number] [place] [address] 04/24/2025 2:10 PM EDT Appointment [facility] [address] [id number] [place] [address] documented as of this encounter Visit Diagnoses [...] documented as of this encounter Care Teams Matrix Repairer Relationship Specialty Start Date End Date Tejal Saeed APRN [address] [place] [address] PCP - General 11/07/20 03/11/25 Km Wooten MD [address] [place] [address] Consulting Physician Radiation Oncology 02/14/25 documented as of this encounter
--- OUTSIDE RECORDS SUMMARY | 2025-02-28 15:30 | XMS_ITS | Encounter Summary ---
Author Organization [facility] Address [address] [place] [address] Care Team Providers Care Manager Body Name Role Phone Tejal Saeed APRN Primary Care Provider [phone] Km Wooten MD Unavailable [phone] Reason for Visit * Reason Comments New Patient * Consultation (Routine) - Closed Specialty Diagnoses / Procedures Referred By Contac t Referred To Contact Pulmonology Diagnoses Malignant neoplasm of rectum (CMS/HCC) Km Wooten MD [address] [facility] [address] [place] [address] Phone: tel: fax: [facility] [address] [place] [address] Phone: tel: fax: Referral ID Status Reason Start Date Expiration Date V isits Requested Visits Authorized [id number] Closed Specialty Services Required 2025 08/21/2026 1 1 Encounter Details Date Type Department Care Team (Late st Contact Info) Description 02/28/2025 3:30 PM EDT Office Visit Pav CC Head, Neck & Respiratory 800 [facility], 2nd [place] [address] Eric Tellez MD [address] [place] [address] Adenopathy (Primary Dx) Social History [...] 3:30 PM EDT HEAD, NECK, RESPIRATORY CLINIC [facility] [place] Referring physician: Km Wooten MD, Con Sumner MD Chief Complaint Mediastinal adenopathy History Of Present Illness Carlos Tripp is a 55 y.o. male with history of lower rectum adenoca, Stage III cT3 cN2a [id number] 02/05/25. CT chest on showed lymph nodes [...] Appointment [facility] Radiation [address] [phone] 04/19/2025 2:10 PM EDT Appointment [facility] Radiation [address] [address] 04/22/2025 2:10 PM EDT Appointment [facility] Radiation [address] [address] 04/23/2025 2:10 PM EDT Appointment [facility] Radiation [address] [phone] 04/24/2025 2:10 PM EDT Appointment [facility] Radiation [address] [address] documented as of this encounter Goals Goal [...] documented as of this encounter Care Teams Manager Body Relationship Specialty Start Date End Date Tejal Saeed APRN [address] [place] [address] PCP - General 11/07/20 03/11/25 Km Wooten MD [address] [facility] [address] [place] [address] Consulting Physician Radiation Oncology 02/14/25 documented as of this encounter
--- OUTSIDE RECORDS SUMMARY | 2025-03-01 08:40 | XMS_ITS | Encounter Summary ---
Author Organization [facility] Address [address] [id number] Care Team Providers Care Camp Advisor Name Role Phone Tejal Saeed APRN Primary Care Provider [phone] [phone] Km Wooten MD Unavailable Encounter Details Date Type Department Care Team (Latest Contact Info) Description 03/01/2025 8:40 AM EDT - 03/01/2025 11:59 PM EDT Hospital Encounter [facility] [address] [id number] [place] [address] Km Wooten MD [address] [place] [address] Discharge Disposition: Still a Patient [...] Appointment [facility] [address] [place] [address] 04/19/2025 2:10 PM EDT Appointment [facility] [address] [address] 04/22/2025 2:10 PM EDT Appointment [facility] [address] [place], [place] [address] 04/23/2025 2:10 PM EDT Appointment [facility] [address] [address] 04/24/2025 2:10 PM EDT Appointment [facility] [address] [place], [place] [address] documented as of this encounter Goals Goal [...] documented as of this encounter Care Teams Camp Advisor Relationship Specialty Start Date End Date Tejal Saeed APRN [address]0 [place] [address] PCP - General 11/07/20 03/11/25 Km Wooten MD [address] [address] Consulting Physician Radiation Oncology 02/14/25 documented as of this encounter
--- OUTSIDE RECORDS SUMMARY | 2025-03-04 08:42 | XMS_ITS | Encounter Summary ---
Author Organization Healthcare Address [address] [id number] Care Team Providers Care Shell Core And Molding Supervisor Name Role Phone Tejal Saeed APRN Primary Care Provider [phone] -[phone] Km Wooten MD Unavailable [phone] Encounter Details Date Type Department Care Team (Latest Contact Info) Description 03/04/2025 8:42 AM EDT - 03/04/2025 11:59 PM EDT Hospital Encounter [facility] [address] HY765L [place] [address] Discharge Disposition: Still a Patient Social History [...] Appointment [facility] [address] [address] 04/19/2025 2:10 PM EDT Appointment [facility] [address] [address] 04/22/2025 2:10 PM EDT Appointment [facility] [address] [address] 04/23/2025 2:10 PM EDT Appointment [facility] [address] [address] 04/24/2025 2:10 PM EDT Appointment [facility] [address] [address] documented as of this encounter Goals Goal [...] documented as of this encounter Care Teams Shell Core And Molding Supervisor Relationship Specialty Start Date End Date Tejal Saeed APRN [address]0 [place] [address] PCP - General 11/07/20 03/11/25 Km Wooten MD [address] [address] Consulting Physician Radiation Oncology 02/14/25 documented as of this encounter
--- OUTSIDE RECORDS SUMMARY | 2025-03-11 17:00 | XMS_ITS | Encounter Summary ---
Author Organization [facility] Address [address] [id number] Care Team Providers Care Licensed Optician Name Role Phone Tejal Saeed APRN Primary Care Provider [phone] Km Wooten MD Unavailable [phone] Encounter Details Date Type Department Care Team (Latest Contact Info) Description 03/11/2025 5:00 PM EDT - 03/11/2025 11:59 PM EDT Hospital Encounter [facility] [address] [place] [address] Discharge Disposition: Still a Patient Social History [...] Appointment [facility] [address] [address] 04/19/2025 2:10 PM EDT Appointment [facility] [address] [address] 04/22/2025 2:10 PM EDT Appointment [facility] [address] [address] 04/23/2025 2:10 PM EDT Appointment [facility] [address] [address] 04/24/2025 2:10 PM EDT Appointment [facility] [address] [address] documented as of this encounter Goals Goal [...] documented as of this encounter Care Teams Licensed Optician Relationship Specialty Start Date End Date Tejal Saeed APRN [address] [place] [address] PCP - General 11/07/20 03/11/25 Km Wooten MD [address] [phone] Consulting Physician Radiation Oncology 02/14/25 documented as of this encounter
--- OUTSIDE RECORDS SUMMARY | 2025-03-12 09:12 | XMS_ITS | Encounter Summary ---
Author Organization [facility] Address [address] [place] [address] Care Team Providers Care Residence Manager Name Role Phone Km Wooten MD Unavailable [phone] Comfort Siddiqi APRN Primary Care Provider [phone] Reason for Referral * Imaging (Routine) - Closed Specialty Diagnoses / Procedures Referred By Alice maria Referred To Contact Gastroenterology Diagnoses Lung nodule Procedures Bronchoscopy w Eric Salas MD [address] [place] [address] Phone: tel: fax: Referral ID Status Reason Start Date Expiration Date V isits Requested Visits Authorized [id number] Closed Specialty Services Required 02/28/2025 08/30/2026 1 1 Reason for Visit * Imaging (Routine) - Closed Specialty Diagnoses / Procedures Referred By Alice maria Referred To Contact Gastroenterology Diagnoses Lung nodule Procedures Bronchoscopy w Eric Salas MD [facility] [place] [address] Phone: tel: fax: Referral ID Status Reason Start Date Expiration Date V isits Requested Visits Authorized [id number] Closed Specialty Services Required 02/28/2025 08/30/2026 1 1 Encounter Details Date Type Department Care Team (Latest Contact Info) Description 03/12/2025 9:12 AM EDT - 03/12/2025 11:59 PM EDT Hospital Encounter [facility] [address] [place] [address] Eric Tellez MD [address] [place] [phone] Lung nodule Discharge Disposition: Home or Self [...] lower rectum adenoca, Stage III cT3 cN2a [id number] 02/05/25. CT chest on showed lymph nodes [...] from the original note were not included. [id number] Anesthesia: General Anesthesia You?re due to have [...] medicines you take. This includes prescription and zzhi-gbn-stvkkyl medicines. It also includes vitamins, herbs, and [...] Last Reviewed Date: 2023 00:00:00 ?? The [employer]. All rights reserved. This information is not [...] temp is over 100?F, you may take ohfi-tru-ptdsdja Tylenol. ? Blood in the mouth: For a few days, you may cough up a little blood or have a little blood in your spit. This is normal. Call [phone] right away if you have any of [...] Pulmonary, call . Nights and weekends, call and ask for the production illustrator vice president of consulting services. ? For the Transplant Service, call . Nights and weekends, call . ? For Pediatric Pulmonary, call and ask for the pediatric attending vice president of consulting services. ? For Otolaryngology, call . Nights and weekends, call and ask for thesurgical resident vice president of consulting services. documented in this encounter Plan of Treatment Upcoming Encounters Date Type Department Care Team (Late st Contact Info) Description 04/18/2025 2:10 PM EDT Appointment [facility] [address] [place] [address] 04/19/2025 2:10 PM EDT Appointment [facility] [address] [place] [address] 04/22/2025 2:10 PM EDT Appointment [facility] [address] [place] [address] 04/23/2025 2:10 PM EDT Appointment [facility] [id number] [place] [phone] 04/24/2025 2:10 PM EDT Appointment [facility] [address] [address] Pending Results Name Type Priority Associated Diagnoses Date /Time AFB Culture, Non Respiratory Source and Acid Fast Stain Microbiology Routine 03/12/2025 12:37 PM EDT documented as of this encounter Goals Goal [...] at 4 Weeks 04/09/2025 6:43 AM EDT [facility] PARMINDER No fungal elements seen 04/09/2025 6:43 AM EDT [facility] Fine Needle Aspirate Structure of lymph node / Unknown Non-blood Collection / Unknown 03/12/2025 12:37 PM EDT 03/12/2025 12:46 PM EDT Eric Tellez MD LAB MICROBIOLOGY - GENERAL OR DERABLES Final Result Performing Organization Address City/[facility]/ZIP Co de Phone Number [facility] [address] [place] [address] * (ABNORMAL) Anaerobic Culture (03/12/2025 12:37 PM EDT) Culture No anaerobes isolated 03/16/2025 4:33 PM EDT [facility] Culture Streptococcus mitis/oralis group(A) 03/16/2025 4:33 PM EDT [facility] Comment: This isolate has been identified using the FDA Approved ScienceLogicyper [place] System The organism value for this [...] MICROBIOLOGY - GENERAL OR DERABLES Final Result [facility] [address] [place] [address] * Tissue Culture and Gram Stain (03/12/2025 12:37 PM EDT) Culture No growth at day 4 2024 2:01 PM EDT [facility] Gram Stain Result No organisms seen 03/16/2025 2:01 PM EDT [facility] Gram Stain Result No polymorphonuclear leukocytes seen 03/16/2025 2:01 PM EDT [facility] Fine Needle Aspirate Structure of lymph node / Unknown Non-blood Collection / Unknown 03/12/2025 12:37 PM EDT 03/12/2025 12:46 PM EDT us Eric Tellez MD LAB MICROBIOLOGY - GENERAL OR DERABLES Final Result [facility] [address] [place] [address] * Bronchoscopy w EBUS (03/12/2025 11:25 AM [...] Nodes observed under convex ultrasound guidance. Onsite certified dialysis technician was present and cytology results were preliminarily [...] Mccoy, RN Endo Nurse Carmen Zelaya Endo Tour Driver Palma Marin, TEDDY FOUR CORNER FORMER MACHINE OPERATOR Eric Tellez MD Proceduralist Shaun Hanley MD Anesthesiologist Impression Overall Impression: Normal endobronchial exam The three lymph nodes sampled today on [address] were benign Post Procedure Diagnosis None Recommendation Follow-up: with referring provider Attestation I was present for the entire procedure Billing Codes See procedure report details above. 58866 - EBUS convex prove 1 or 2 lesions GC - Service has been performed in part by a resident/fellow under the direction of a teaching physician Eric Tellez MD GI PROCEDURE ORDERABLES Final Result * Fine needle aspiration (03/12/2025 10:43 AM EDT) Case Report Cytology Case: [id number] Authorizing Provider: Eric Tellez MD Collected: 03/12/2025 1043 Ordering Location: [facility] H Endoscopy Received: 03/12/2025 1129 Pathologist: Nicole [...] RIGHT, ENDOBRONCHIAL ULTRASOUND GUIDED FINE NEEDLE ASPIRATION 12:59 PM EDT [facility] Final Diagnosis A. LYMPH NODE, STATION 7, ENDOBRONCHIAL ULTRASOUND-GUIDED FINE NEEDLE ASPIRATION: NO EVIDENCE OF MALIGNANCY, HEMODILUTE LYMPHOID TISSUE. B. LYMPH NODE, 4 RIGHT, ENDOBRONCHIAL ULTRASOUND-GUIDED FINE NEEDLE ASPIRATION: NO EVIDENCE OF MALIGNANCY, HEMODILUTE LYMPHOID TISSUE. C. LYMPH NODE, 11 RIGHT, ENDOBRONCHIAL ULTRASOUND-GUIDED FINE NEEDLE ASPIRATION: NO EVIDENCE OF MALIGNANCY, HEMODILUTE LYMPHOID TISSUE. 5 12:59 PM EDT [facility] at 1259 EDT Comment The possibility of rare poorly-formed granulomas is not excluded, especially in the station 7 lymph node sample. For this reason, GMS and AFB stains are performed. These are negative for organisms. 12:59 PM EDT [facility] Special and Immunohistochemical Stains Special Stain: A1-2 Acid Fast Bacteria A1-3 GMS IHC: There are no tasks to display for the given criteria. All controls show appropriate reactivity. All immunohistochemis try, in situ hybridization, and histochemical tests were developed by and are performed at the [facility], [address] [place] [address]. All tests reported here, except those addressing [...] likelihood of false negativity on decalcified specimens. 5 12:59 PM EDT [facility] Immediate Evaluation A. FNA performed by: Dr. [...] sticks: 4 Immediate evaluation performed by: Dr. Mccoy//SP Evaluation episode # 1-2: Broncs and very hemodilute lymphoid tissue. 3-4: Hemodilute lymphoid tissue. The immediate evaluation in this case was performed via telecytology by the attending physician listed above. 5 12:59 PM EDT [facility] Gross Description A. LYMPH NODE, STATION [...] Time: 1h 31m 5 12:59 PM EDT [facility] Note: A resident was involved in the service. I attest I examined the relevant preparations for the specimens and confirmed the diagnosis or interpretation. 5 12:59 PM EDT [facility] Clinical Information R91.1 - Lung nodule [ICD-10-CM] 12:59 PM EDT [facility] Fine Needle Aspirate Structure of lymph [...] Tellez MD LAB CYTOLOGY ORDERABLES Final Result [facility] [address] [place] [address] documented in this encounter Visit Diagnoses Diagnosis [...] documented as of this encounter Care Teams Residence Manager Relationship Specialty Start Date End Date Comfort Siddiqi APRN [address] [place] [address] PCP - General 03/12/25 Km Wooten MD [address] [place] [address] Consulting Physician Radiation Oncology 02/14/25 documented as of this encounter
--- OUTSIDE RECORDS SUMMARY | 2025-03-12 10:12 | XMS_ITS | Encounter Summary ---
Author Organization [facility] Address [address] [place] [address] Care Team Providers Care Technician Assistant Name Role Phone Km Wooten MD Unavailable [phone] Comfort Siddiqi APRN Primary Care Provider [phone] Encounter Details Date Type Department Care Team (Late st Contact Info) Description 03/12/2025 10:12 AM EDT Anesthesia Event [facility] Endoscopy [address] [place] [address] Shaun Hanley MD [address] [place] [address] Anesthesia Record Procedure Summary Procedure Name Responsible [...] and Staff Patient location during procedure: OR SYSTEM CONTROLLER: Palma Marin CRNA Performed: SYSTEM CONTROLLER Patient Condition Indications for airway management: anesthesia [...] 10:06 AM EDT Anesthesiologist: Shaun Hanley MD SYSTEM CONTROLLER: Palma Marin CRNA Patient: Carlos Tripp HPI [...] ABG No results found for: PHART , QEN6NFK , PO2ART , SO2ART , BEART , KRZ7MQM , HCTART , SODIUMART , POTASSIUMART , POCTCL , POCGLU , IONCALART , LACTATE No results found for: PH , PCO2 , PO2 , H9UETHLP , BASEEXC , HCTSYR , KSYR , CLSYR , GLUSYR , CAION , LACTATE ECHO No echocardiogram results found for the past 12 months PFTs No results found for: UDM9FXL , CYO5HMOQ , LUX3HSO , FVCPRED BP Readings from Last 5 [...] Cardiovascular: Does not have CAD or past [place]. Does not have chest pain. Respiratory: no [...] Appointment [facility] Radiation [address] [place] [phone] 04/19/2025 2:10 PM EDT Appointment [facility] Radiation [address] [address] 04/22/2025 2:10 PM EDT Appointment [facility] [address] [phone] 04/23/2025 2:10 PM EDT Appointment [facility] Rad[facility] [address] [phone] 04/24/2025 2:10 PM EDT Appointment [facility] Radiation [address] [phone] documented as of this encounter Goals Goal Patient Goal Type Associated Problems Recent Progress Patient-Stated? Author Autogenerat ed Goal Care Plan Autogenerated Problem No Lisa Johnston documented as of this encounter Procedures Procedure Name Priority Date/Time Associated Diagnosis Comments PB ANESTHESIA PLACEHOLDER Routine 03/12/2025 10:22 AM EDT NV AN ELECTIVE ENDOTRACHEAL AIRWAY Routine 03/12/2025 10:22 AM EDT documented in this encounter Results * NV AN ELECTIVE ENDOTRACHEAL AIRWAY, PB ANESTHESIA PLACEHOLDER (03/12/2025 10:22 AM EDT) Narrative Palma Marin CRNA - 03/12/2025 10:22 AM EDT Palma Marin CRNA 03/12/2025 10:32 AM Airway Date/Time: 03/12/2025 10:22 AM Reason: elective Airway not difficult General Information and Staff Patient location during procedure: OR SYSTEM CONTROLLER: Palma Marin CRNA Performed: TEDDY Patient Condition [...] documented as of this encounter Care Teams Technician Assistant Relationship Specialty Start Date End Date Comfort Siddiqi APRN [address] [place] [address] PCP - General 03/12/25 Km Wooten MD [address] [place] [address] [place] [address] Consulting Physician Radiation Oncology 02/14/25 documented as of this encounter
--- OUTSIDE RECORDS SUMMARY | 2025-03-15 09:00 | XMS_ITS | Encounter Summary ---
Author Organization [facility] Address [address] [place] [address] Care Team Providers Care Coroner Name Role Phone Km Wooten MD Unavailable [phone] Comfort Siddiqi APRN Primary Care Provider [phone] Reason for Visit * Reason Comments Adenopathy Encounter Details Date Type Department Care Team ([facility] Contact Info) Description 03/15/2025 9:00 AM EDT Office Visit Pav CC Head, Neck & Respiratory [address] [place] [address] Deepak Haider MD [address] [place] [address] Malignant neoplasm of rectum (CMS/HCC) [...] Patient confirms they are physically located in [place]? Yes If the patient is not physically located in [place], the provider has confirmed with [facility] thatthe provider is authorized to provide services in patient's stated location? N/A Provider Location: [facility] facility Audio and video or audio only? Audio and video Total visit time: 10 minutes INTERVENTIONAL PULMONARY FOLLOW-UP OUTPATIENT NOTE: Patient ID/Chief Complaint: .Carlos Tripp is a 55 y.o. male presenting for follow up for mediastinal adenopathy. History of Present Illness: Carlos Tripp is a 55 y.o. male with history of lower rectum adenoca, Stage III cT3 cN2a [id number] 02/05/25. CT chest on showed lymph nodes [...] History Administered Date(s) Administered Moderna COVID-19 Vaccine (Fan Balancer) 12+ years 10/11/2020, 11/08/2020, 06/24/2021 Physical Examination: Vital Signs: Weight 126 kg (277 lb). Review of Data: Fine needle aspiration: [id number] Order: [id number] Collected 03/12/2025 10:43 Status: Final result Dx: [...] at the [facility], [address] [place] [address]. All tests reported here, except those addressing [...] Appointment PAV CC Radiation [address] [address] 04/19/2025 2:10 PM EDT Appointment PAV CC Radiation [address] [address] 04/22/2025 2:10 PM EDT Appointment PAV CC Radiation [address] [address] 04/23/2025 2:10 PM EDT Appointment PAV CC Radiation [id number] [place] [address] 04/24/2025 2:10 PM EDT Appointment P[facility] CC Radiation [address] [address] documented as of this encounter Goals Goal [...] documented as of this encounter Care Teams Coroner Relationship Specialty Start Date End Date Comfort Siddiqi APRN [address] [place] [address] PCP - General 03/12/25 Km Wooten MD [address] [place] [address] Consulting Physician Radiation Oncology 02/14/25 documented as of this encounter
--- OUTSIDE RECORDS SUMMARY | 2025-03-18 08:34 | XMS_ITS | Encounter Summary ---
Author Organization [facility] Address [address] [id number] Care Team Providers Care Newspaper Writer Name Role Phone Km Wooten MD Unavailable Comfort Siddiqi APRN Primary Care Provider Encounter Details Date Type Department Care Team (Latest Contact Info) Description 03/18/2025 8:34 AM EDT - 03/18/2025 11:59 PM EDT Hospital Encounter PAV CC Radiation [address] [id number] [place] [address] Discharge Disposition: Still a Patient Social History [...] Appointment PAV CC Radiation [address] [address] 04/19/2025 2:10 PM EDT Appointment PAV CC Radiation [address] [address] 04/22/2025 2:10 PM EDT Appointment PAV CC Radiation [address] [address] 04/23/2025 2:10 PM EDT Appointment PAV CC Radiation [address] [address] 04/24/2025 2:10 PM EDT Appointment PAV CC Radiation [address] [address] documented as of this encounter Goals Goal Patient Goal Type Associated Problems Recent Progress Patient-Stated? Author Autogenerat ed Goal Care Plan Autogenerated Problem No PrestonLisa Jeovany documented as of this encounter Visit Diagnoses [...] documented as of this encounter Care Teams Newspaper Writer Relationship Specialty Start Date End Date Devang ComfortTARUN [place] [address] [place] [address] PCP - General 03/12/25 Km Wooten MD [address] [place] [phone] Consulting Physician Radiation Oncology 02/14/25 documented as of this encounter
--- OUTSIDE RECORDS SUMMARY | 2025-03-21 13:48 | XMS_ITS | Encounter Summary ---
Author Organization [facility] Address [address] [place] [address] Care Team Providers Care Residential Program Manager Name Role Phone Km Wooten MD Unavailable [phone] Comfort Siddiqi APRN Primary Care Provider [phone] Encounter Details Date Type Department Care Team (Latest Contact Info) Description 03/21/2025 1:48 PM EDT - 03/21/2025 2:11 PM EDT Hospital Encounter PAV CC Radiation [address] BA[address] [place] [address] Km Wooten MD [address] [place] [address] Discharge Disposition: Still a Patient Social History [...] PAV CC Radiation [address] [address] 04/19/2025 2:10 PM EDT Appointment PAV CC Radiation [address] [address] 04/22/2025 2:10 PM EDT Appointment PAV CC Radiation [address] [place], [place] [address] 04/23/2025 2:10 PM EDT Appointment PAV CC Radiation [address] [address] 04/24/2025 2:10 PM EDT Appointment PAV CC Radiation [address] [address] documented as of this encounter Goals Goal [...] documented as of this encounter Care Teams Residential Program Manager Relationship Specialty Start Date End Date Comfort SiddiqiTARUN [address] [place] [address] PCP - General 03/12/25 Km Wooten MD [address] [place] [address] Consulting Physician Radiation Oncology 02/14/25 documented as of this encounter
--- OUTSIDE RECORDS SUMMARY | 2025-03-21 14:12 | XMS_ITS | Encounter Summary ---
Author Organization [facility] Address [address] [place] [id number] Care Team Providers Care Bag Valver Name Role Phone Km Wooten MD Unavailable [phone] Comfort Siddiqi APRN Primary Care Provider [phone] Reason for Visit * Reason Comments OTV Encounter Details Date Type Department Care Team (Latest Contact Info) Description 03/21/2025 2:12 PM EDT - 03/21/2025 11:59 PM EDT Hospital Encounter [facility] [address] [id number] [place] [address] Km Wooten MD [address] Buzz C114D [place] [address] Malignant neoplasm of rectum (CMS/HCC) (Primary Dx) [...] Tripp : 1970 Date: 03/21/2025 REFERRING PHYSICIAN: Con Sumner MD - Colorectal [...] PM EDT Appointment [facility] [address] [id number] [place] [address] 04/19/2025 2:10 PM EDT Appointment [facility] [address] SB305E [place] [address] 04/22/2025 2:10 PM EDT Appointment [facility] 800 [facility] [place] [address] 04/23/2025 2:10 PM EDT Appointment [facility] 800 [facility] [place] [address] 04/24/2025 2:10 PM EDT Appointment [facility] [address] [address] documented as of this encounter Goals Goal [...] documented as of this encounter Care Teams Bag Valver Relationship Specialty Start Date End Date Comfort Siddiqi APRN [address] [place] [address] PCP - General 03/12/25 Km Wooten MD [address] [place] [address] [place] [address] Consulting Physician Radiation Oncology 02/14/25 documented as of this encounter
--- OUTSIDE RECORDS SUMMARY | 2025-03-22 13:49 | XMS_ITS | Encounter Summary ---
Author Organization [facility] Address [address] [address] [id number] Care Team Providers Care Alumina Plant Supervisor Name Role Phone Km Wooten MD Unavailable [phone] Comfort Siddiqi APRN Primary Care Provider [phone] Encounter Details Date Type Department Care Team (Latest Contact Info) Description 03/22/2025 1:49 PM EDT - 03/22/2025 11:59 PM EDT Hospital Encounter [facility] [address] ES247Z [place] [address] Discharge Disposition: Still a Patient Social History [...] Appointment [facility] [address] [address] 04/19/2025 2:10 PM EDT Appointment [facility] Radiation [address] [address] 04/22/2025 2:10 PM EDT Appointment [facility] [address] [address] 04/23/2025 2:10 PM EDT Appointment [facility] Radiation [address] [address] 04/24/2025 2:10 PM EDT Appointment [facility]iation [address] [address] documented as of this encounter Goals Goal [...] documented as of this encounter Care Teams Alumina Plant Supervisor Relationship Specialty Start Date End Date Devang ComfortTARUN arambula [address] [place] [address] PCP - General 03/12/25 Km Wooten MD [address] [place] [phone] Consulting Physician Radiation Oncology 02/14/25 documented as of this encounter
--- OUTSIDE RECORDS SUMMARY | 2025-03-25 05:30 | XMS_ITS | Encounter Summary ---
Author Organization Healthcare Address [address] [id number] Care Team Providers Care Drywall Application Supervisor Name Role Phone Km Wooten MD Unavailable [phone] Comfort Siddiqi APRN Primary Care Provider [phone] Encounter Details Date Type Department Care Team (Latest Contact Info) Description 03/25/2025 5:30 AM EDT - 03/25/2025 1:34 PM EDT Hospital Encounter [facility] [address] [id number] [place] [address] Discharge Disposition: Still a Patient Social History [...] Appointment [facility] [address] [address] 04/19/2025 2:10 PM EDT Appointment [facility] [address] [address] 04/22/2025 2:10 PM EDT Appointment [facility] [address] [address] 04/23/2025 2:10 PM EDT Appointment [facility] [address] [address] 04/24/2025 2:10 PM EDT Appointment [facility] [address] [address] documented as of this encounter Goals Goal [...] documented as of this encounter Care Teams Drywall Application Supervisor Relationship Specialty Start Date End Date Devang ComfortTARUN arambula [address] [place] [address] PCP - General 03/12/25 Km Wooten MD [address] [place] [phone] Consulting Physician Radiation Oncology 02/14/25 documented as of this encounter
--- OUTSIDE RECORDS SUMMARY | 2025-03-25 13:35 | XMS_ITS | Encounter Summary ---
Author Organization Healthcare Address [address] [id number] Care Team Providers Care Adult Neuropsychologist Name Role Phone Km Wooten MD Unavailable Comfort Siddiqi APRN Primary Care Provider [phone] Encounter Details Date Type Department Care Team (Latest Contact Info) Description 03/25/2025 1:35 PM EDT - 03/25/2025 11:59 PM EDT Hospital Encounter [facility] [address] [id number] [place] [address] Discharge Disposition: Still a Patient Social History [...] Appointment [facility] [address] [address] 04/19/2025 2:10 PM EDT Appointment [facility] [address] [address] 04/22/2025 2:10 PM EDT Appointment [facility] [address] [address] 04/23/2025 2:10 PM EDT Appointment [facility] [address] [address] 04/24/2025 2:10 PM EDT Appointment [facility] [address] [address] documented as of this encounter Goals Goal [...] documented as of this encounter Care Teams Adult Neuropsychologist Relationship Specialty Start Date End Date Devang ComfortTARUN arambula [address] [place] [address] PCP - General 03/12/25 Km Wooten MD [address] [place] [phone] Consulting Physician Radiation Oncology 02/14/25 documented as of this encounter
--- OUTSIDE RECORDS SUMMARY | 2025-03-26 13:30 | XMS_ITS | Encounter Summary ---
Author Organization Healthcare Address [address] [id number] Care Team Providers Care Educational Aid Name Role Phone Km Wooten MD Unavailable [phone] Comfort Siddiqi APRN Primary Care Provider [phone] Encounter Details Date Type Department Care Team (Latest Contact Info) Description 03/26/2025 1:30 PM EDT - 03/26/2025 11:59 PM EDT Hospital Encounter [facility] [address] [id number] [place] [address] Discharge Disposition: Still a Patient Social History [...] [facility] [address] [address] 04/19/2025 2:10 PM EDT Appointment [facility] [address] [address] 04/22/2025 2:10 PM EDT Appointment [facility] [address] [address] 04/23/2025 2:10 PM EDT Appointment [facility] [address] [address] 04/24/2025 2:10 PM EDT Appointment [facility] [address] [address] documented as of this encounter Goals Goal [...] documented as of this encounter Care Teams Educational Aid Relationship Specialty Start Date End Date Devang ComfortTARUN arambula [address] [place] [address] PCP - General 03/12/25 Km Wooten MD [address] [place] [phone] Consulting Physician Radiation Oncology 02/14/25 documented as of this encounter
--- OUTSIDE RECORDS SUMMARY | 2025-03-27 13:38 | XMS_ITS | Encounter Summary ---
Author Organization Healthcare Address [address] [id number] Care Team Providers Care Export Freight Manager Name Role Phone Km Wooten MD Unavailable [phone] Comfort Siddiqi APRN Primary Care Provider [phone] Encounter Details Date Type Department Care Team (Latest Contact Info) Description 03/27/2025 1:38 PM EDT - 03/27/2025 11:59 PM EDT Hospital Encounter [facility] [address] TI[address] [place] [address] Discharge Disposition: Still a Patient Social History [...] [facility] [address] [address] 04/19/2025 2:10 PM EDT Appointment [facility] [address] [address] 04/22/2025 2:10 PM EDT Appointment [facility] [address] [address] 04/23/2025 2:10 PM EDT Appointment [facility] [address] [address] 04/24/2025 2:10 PM EDT Appointment [facility] [address] [address] documented as of this encounter Goals Goal [...] documented as of this encounter Care Teams Export Freight Manager Relationship Specialty Start Date End Date Devang ComfortTARUN arambula [address] [place] [address] PCP - General 03/12/25 Km Wooten MD [address] [place] [phone] Consulting Physician Radiation Oncology 02/14/25 documented as of this encounter
--- OUTSIDE RECORDS SUMMARY | 2025-03-28 13:37 | XMS_ITS | Encounter Summary ---
Author Organization Healthcare Address [address] [id number] Care Team Providers Care Metal Roofing Mechanic Name Role Phone Km Wooten MD Unavailable [phone] Comfort Siddiqi APRN Primary Care Provider [phone] Encounter Details Date Type Department Care Team (Latest Contact Info) Description 03/28/2025 1:37 PM EDT - 03/28/2025 1:53 PM EDT Hospital Encounter [facility] [address] RS[address] [place] [address] Discharge Disposition: Still a Patient Social History [...] Appointment [facility] [address] [address] 04/19/2025 2:10 PM EDT Appointment [facility] Radiation [address] [address] 04/22/2025 2:10 PM EDT Appointment [facility]iation [address] [address] 04/23/2025 2:10 PM EDT Appointment [facility] Radiation [address] [address] 04/24/2025 2:10 PM EDT Appointment [facility] Rad[facility] [address] [address] documented as of this encounter Goals Goal [...] documented as of this encounter Care Teams Metal Roofing Mechanic Relationship Specialty Start Date End Date Devang ComfortTARUN arambula [address] [place] [address] PCP - General 03/12/25 Km Wooten MD [address] [place] [phone] Consulting Physician Radiation Oncology 02/14/25 documented as of this encounter
--- OUTSIDE RECORDS SUMMARY | 2025-03-28 13:54 | XMS_ITS | Encounter Summary ---
Author Organization [facility] Address [address] [id number] Care Team Providers Care Technical Photographer Name Role Phone Km Wooten MD Unavailable [phone] Comfort Siddiqi APRN Primary Care Provider [phone] Reason for Visit * Reason Comments OTV Encounter Details Date Type Department Care Team (Latest Contact Info) Description 03/28/2025 1:54 PM EDT - 03/28/2025 11:59 PM EDT Hospital Encounter [facility] [address] [id number] [place] [address] Km Wooten MD [address] [place] [address] Malignant neoplasm of rectum (CMS/HCC) (Primary Dx) [...] Tripp is a 55 y.o. male with [id number] lower rectal adenocarcinoma receiving induction chemoradiation Radiation [...] radiation therapy as planned. Km Wooten MD Client Support Analyst [facility] Department [place] [address] documented in this encounter Plan of Treatment Upcoming Encounters Date Type Department Care Team (Late st Contact Info) Description 04/18/2025 2:10 PM EDT Appointment [facility] [address] [phone] 04/19/2025 2:10 PM EDT Appointment [facility]iation [address] [phone] 04/22/2025 2:10 PM EDT Appointment [facility] [address] [address] 04/23/2025 2:10 PM EDT Appointment [facility] Radiation [address] [place] [address] 04/24/2025 2:10 PM EDT Appointment [facility] [address] HV[address]68A [place] [address] documented as of this encounter Goals Goal [...] documented as of this encounter Care Teams Technical Photographer Relationship Specialty Start Date End Date Comfort Siddiqi APRN [address] [place] [address] PCP - General 03/12/25 Km Wooten MD [address] [place] [address] Consulting Physician Radiation Oncology 02/14/25 documented as of this encounter
--- OUTSIDE RECORDS SUMMARY | 2025-03-29 13:25 | XMS_ITS | Encounter Summary ---
Author Organization [facility] Address [address] [id number] Care Team Providers Care Keymodule Assembly Machine Tender Name Role Phone Km Wooten MD Unavailable [phone] Comfort Siddiqi APRN Primary Care Provider [phone] Encounter Details Date Type Department Care Team (Latest Contact Info) Description 03/29/2025 1:25 PM EDT - 03/29/2025 11:59 PM EDT Hospital Encounter [facility] [address] [id number] [place] [address] Discharge Disposition: Still a Patient Social History [...] Appointment [facility] [address] [address] 04/19/2025 2:10 PM EDT Appointment [facility] [address] [address] 04/22/2025 2:10 PM EDT Appointment [facility] [address] [address] 04/23/2025 2:10 PM EDT Appointment [facility] [address] [address] 04/24/2025 2:10 PM EDT Appointment [facility] [address] [address] documented as of this encounter Goals Goal [...] documented as of this encounter Care Teams Keymodule Assembly Machine Tender Relationship Specialty Start Date End Date Comfort SiddiqiTARUN [address] [place] [address] PCP - General 03/12/25 Km Wooten MD [address] [place] [address] Consulting Physician Radiation Oncology 02/14/25 documented as of this encounter
--- OUTSIDE RECORDS SUMMARY | 2025-04-01 05:30 | XMS_ITS | Encounter Summary ---
Author Organization [facility] Address [address] [id number] Care Team Providers Care Commercial Drone Software Developer Name Role Phone Km Wooten MD Unavailable [phone] Comfort Siddiqi APRN Primary Care Provider [phone] Encounter Details Date Type Department Care Team (Latest Contact Info) Description 04/01/2025 5:30 AM EDT - 04/01/2025 1:40 PM EDT Hospital Encounter [facility] [address] UE238S [place] [address] Discharge Disposition: Still a Patient Social History [...] Appointment [facility] [address] [address] 04/19/2025 2:10 PM EDT Appointment [facility] [address] [address] 04/22/2025 2:10 PM EDT Appointment [facility] [address] [address] 04/23/2025 2:10 PM EDT Appointment [facility] [address] [address] 04/24/2025 2:10 PM EDT Appointment [facility] [address] [address] documented as of this encounter Goals Goal [...] as of this encounter Care Teams Commercial Drone Software Developer Relationship Specialty Start Date End Date Comfort SiddiqiTARUN [address] [place] [address] PCP - General 03/12/25 Km Wooten MD [address] [place] [address] Consulting Physician Radiation Oncology 02/14/25 documented as of this encounter
--- OUTSIDE RECORDS SUMMARY | 2025-04-01 13:41 | XMS_ITS | Encounter Summary ---
Author Organization Healthcare Address [address] [id number] Care Team Providers Care Creping Machine Operator Name Role Phone Km Wooten MD Unavailable [phone] Comfort Siddiqi APRN Primary Care Provider Encounter Details Date Type Department Care Team (Latest Contact Info) Description 04/01/2025 1:41 PM EDT - 04/01/2025 11:59 PM EDT Hospital Encounter [facility] [address] [id number] [place] [address] Discharge Disposition: Still a Patient Social History [...] Appointment [facility] [address] [address] 04/19/2025 2:10 PM EDT Appointment [facility] [address] [address] 04/22/2025 2:10 PM EDT Appointment [facility] [address] [address] 04/23/2025 2:10 PM EDT Appointment [facility] Radiation [address] [address] 04/24/2025 2:10 PM EDT Appointment [facility] Radiation [address] [address] documented as of this encounter Goals Goal [...] documented as of this encounter Care Teams Creping Machine Operator Relationship Specialty Start Date End Date Comfort SiddiqiTARUN [address] [place] [address] PCP - General 03/12/25 Km Wooten MD [address] [place] [address] Consulting Physician Radiation Oncology 02/14/25 documented as of this encounter
--- OUTSIDE RECORDS SUMMARY | 2025-04-02 13:58 | XMS_ITS | Encounter Summary ---
Author Organization Healthcare Address [address] [id number] Care Team Providers Care Mobile Product Manager Name Role Phone Km Wooten MD Unavailable Comfort Siddiqi APRN Primary Care Provider [phone] Encounter Details Date Type Department Care Team (Latest Contact Info) Description 04/02/2025 1:58 PM EDT - 04/02/2025 11:59 PM EDT Hospital Encounter [facility] [address] [id number] [place] [address] Discharge Disposition: Still a Patient Social History [...] [facility] [address] [address] 04/19/2025 2:10 PM EDT Appointment [facility] [address] [address] 04/22/2025 2:10 PM EDT Appointment [facility] [address] [address] 04/23/2025 2:10 PM EDT Appointment [facility] [address] [address] 04/24/2025 2:10 PM EDT Appointment [facility] [address] [address] documented as of this encounter Goals Goal [...] as of this encounter Care Teams Mobile Product Manager Relationship Specialty Start Date End Date Comfort SiddiqiTARUN [address] [place] [address] PCP - General 03/12/25 Km Wooten MD [address] [place] [address] Consulting Physician Radiation Oncology 02/14/25 documented as of this encounter
--- OUTSIDE RECORDS SUMMARY | 2025-04-03 13:29 | XMS_ITS | Encounter Summary ---
Author Organization Healthcare Address [address] [id number] Care Team Providers Care Director Product Development Name Role Phone Km Wooten MD Unavailable [phone] Comfort Siddiqi APRN Primary Care Provider [phone] Encounter Details Date Type Department Care Team (Latest Contact Info) Description 04/03/2025 1:29 PM EDT - 04/03/2025 11:59 PM EDT Hospital Encounter [facility] [address] [id number] [place] [address] Discharge Disposition: Still a Patient Social History [...] [facility] [address] [address] 04/19/2025 2:10 PM EDT Appointment [facility] [address] [address] 04/22/2025 2:10 PM EDT Appointment [facility] [address] [address] 04/23/2025 2:10 PM EDT Appointment [facility] [address] [address] 04/24/2025 2:10 PM EDT Appointment [facility] [address] [address] documented as of this encounter Goals Goal [...] of this encounter Care Teams Director Product Development Relationship Specialty Start Date End Date Comfort SiddiqiTARUN [address] [place] [address] PCP - General 03/12/25 Km Wooten MD [address] [place] [address] Consulting Physician Radiation Oncology 02/14/25 documented as of this encounter
--- OUTSIDE RECORDS SUMMARY | 2025-04-04 13:47 | XMS_ITS | Encounter Summary ---
Author Organization Healthcare Address [address] [id number] Care Team Providers Care Simulation Educator Name Role Phone Km Wooten MD Unavailable [phone] Comfort Siddiqi APRN Primary Care Provider [phone] Encounter Details Date Type Department Care Team (Latest Contact Info) Description 04/04/2025 1:47 PM EDT - 04/04/2025 1:52 PM EDT Hospital Encounter [facility] [address] [id number] [place] [address] Discharge Disposition: Still a Patient Social History [...] [facility] [address] [address] 04/19/2025 2:10 PM EDT Appointment [facility] [address] [address] 04/22/2025 2:10 PM EDT Appointment [facility] [address] [address] 04/23/2025 2:10 PM EDT Appointment [facility] [address] [address] 04/24/2025 2:10 PM EDT Appointment [facility] [address] [address] documented as of this encounter Goals Goal [...] documented as of this encounter Care Teams Simulation Educator Relationship Specialty Start Date End Date Comfort SiddiqiTARUN [address] [place] [address] PCP - General 03/12/25 Km Wooten MD [address] [place] [address] Consulting Physician Radiation Oncology 02/14/25 documented as of this encounter
--- OUTSIDE RECORDS SUMMARY | 2025-04-04 13:53 | XMS_ITS | Encounter Summary ---
Author Organization [facility] Address [address] [id number] Care Team Providers Care Biztalk Administrator Name Role Phone Km Wooten MD Unavailable [phone] Comfort Siddiqi APRN Primary Care Provider [phone] Reason for Visit * Reason Comments OTV Encounter Details Date Type Department Care Team (Latest Contact Info) Description 04/04/2025 1:53 PM EDT - 04/04/2025 11:59 PM EDT Hospital Encounter [facility] [address] [id number] [place] [address] Nancy tSanley MD [address] C114D [place] [address] Malignant neoplasm of rectum (CMS/HCC) (Primary Dx) [...] Tripp is a 55 y.o. male with [id number] lower rectal adenocarcinoma receiving induction chemoradiation Radiation [...] Randolph MD, PGY-3 Resident Physician, Radiation Oncology [facility] Pager: [phone] \ Cosigned by Nancy Stanley MD at [...] Appointment [facility] [address] HP289X [place] [address] 04/19/2025 2:10 PM EDT Appointment [facility] [address] [phone] 04/22/2025 2:10 PM EDT Appointment [facility] [address] [phone] 04/23/2025 2:10 PM EDT Appointment [facility] [address] [address] 04/24/2025 2:10 PM EDT Appointment [facility] [address] [address] documented as of this encounter Goals Goal [...] documented as of this encounter Care Teams Biztalk Administrator Relationship Specialty Start Date End Date Comfort Siddiqi APRN [address] [place] [address] PCP - General 03/12/25 Km Wooten MD [address] [place] [address] [address] Consulting Physician Radiation Oncology 02/14/25 documented as of this encounter
--- OUTSIDE RECORDS SUMMARY | 2025-04-05 14:06 | XMS_ITS | Encounter Summary ---
Author Organization Healthcare Address [address] [id number] Care Team Providers Care School Community Relations Coordinator Name Role Phone Km Wooten MD Unavailable [phone] Comfort Siddiqi APRN Primary Care Provider [phone] Encounter Details Date Type Department Care Team (Latest Contact Info) Description 04/05/2025 2:06 PM EDT - 04/05/2025 11:59 PM EDT Hospital Encounter [facility] [address] [id number] [place] [address] Discharge Disposition: Still a Patient Social History [...] Appointment [facility] [address] [address] 04/19/2025 2:10 PM EDT Appointment [facility] [address] [address] 04/22/2025 2:10 PM EDT Appointment [facility] [address] [address] 04/23/2025 2:10 PM EDT Appointment [facility] [address] [address] 04/24/2025 2:10 PM EDT Appointment [facility] [address] [address] documented as of this encounter Goals Goal [...] documented as of this encounter Care Teams School Community Relations Coordinator Relationship Specialty Start Date End Date Comfort SiddiqiTARUN [address] [place] [address] PCP - General 03/12/25 Km Wooten MD [address] [place] [address] Consulting Physician Radiation Oncology 02/14/25 documented as of this encounter
--- OUTSIDE RECORDS SUMMARY | 2025-04-08 05:30 | XMS_ITS | Encounter Summary ---
Author Organization Healthcare Address [address] [id number] Care Team Providers Care Manhole Stripper Name Role Phone Km Wooten MD Unavailable [phone] Comfort Siddiqi APRN Primary Care Provider [phone] Encounter Details Date Type Department Care Team (Latest Contact Info) Description 04/08/2025 5:30 AM EDT - 04/08/2025 1:37 PM EDT Hospital Encounter [facility] [address] [id number] [place] [address] Discharge Disposition: Still a Patient Social History [...] [facility] [address] [address] 04/19/2025 2:10 PM EDT Appointment [facility] [address] [address] 04/22/2025 2:10 PM EDT Appointment [facility] [address] [address] 04/23/2025 2:10 PM EDT Appointment [facility] [address] [address] 04/24/2025 2:10 PM EDT Appointment [facility] [address] [address] documented as of this encounter Goals Goal [...] documented as of this encounter Care Teams Manhole Stripper Relationship Specialty Start Date End Date Comfort SiddiqiTARUN [address] [place] [address] PCP - General 03/12/25 Km Wooten MD [address] [place] [address] Consulting Physician Radiation Oncology 02/14/25 documented as of this encounter
--- OUTSIDE RECORDS SUMMARY | 2025-04-08 13:38 | XMS_ITS | Encounter Summary ---
Author Organization Healthcare Address [address] [id number] Care Team Providers Care Drawbridge Tender Name Role Phone Km Wooten MD Unavailable Comfort Siddiqi APRN Primary Care Provider [phone] Encounter Details Date Type Department Care Team (Latest Contact Info) Description 04/08/2025 1:38 PM EDT - 04/08/2025 11:59 PM EDT Hospital Encounter [facility] [address] [id number] [place] [address] Discharge Disposition: Still a Patient Social History [...] Appointment [facility] [address] [address] 04/19/2025 2:10 PM EDT Appointment [facility] [address] [address] 04/22/2025 2:10 PM EDT Appointment [facility] [address] [address] 04/23/2025 2:10 PM EDT Appointment [facility] [address] [address] 04/24/2025 2:10 PM EDT Appointment [facility] [address] [address] documented as of this encounter Goals Goal [...] documented as of this encounter Care Teams Drawbridge Tender Relationship Specialty Start Date End Date Comfort SiddiqiTARUN [address] [place] [address] PCP - General 03/12/25 Km Wooten MD [address] [place] [address] Consulting Physician Radiation Oncology 02/14/25 documented as of this encounter
--- OUTSIDE RECORDS SUMMARY | 2025-04-09 13:45 | XMS_ITS | Encounter Summary ---
Author Organization Healthcare Address [address] [id number] Care Team Providers Care Cnc Mill And Lathe Operator Name Role Phone Km Wooten MD Unavailable [phone] Comfort Siddiqi APRN Primary Care Provider [phone] Encounter Details Date Type Department Care Team (Latest Contact Info) Description 04/09/2025 1:45 PM EDT - 04/09/2025 11:59 PM EDT Hospital Encounter [facility] [address] [id number] [place] [address] Discharge Disposition: Still a Patient Social History [...] [facility] [address] [address] 04/19/2025 2:10 PM EDT Appointment [facility] [address] [address] 04/22/2025 2:10 PM EDT Appointment [facility] [address] [address] 04/23/2025 2:10 PM EDT Appointment [facility] [address] [address] 04/24/2025 2:10 PM EDT Appointment [facility] [address] [address] documented as of this encounter Goals Goal [...] documented as of this encounter Care Teams Cnc Mill And Lathe Operator Relationship Specialty Start Date End Date Comfort SiddiqiTARUN [address] [place] [address] PCP - General 03/12/25 mK Wooten MD [address] [place] [address] Consulting Physician Radiation Oncology 02/14/25 documented as of this encounter
--- OUTSIDE RECORDS SUMMARY | 2025-04-10 13:31 | XMS_ITS | Encounter Summary ---
Author Organization [facility] Address [address] [id number] Care Team Providers Care Cook Mayonnaise Name Role Phone Km Wooten MD Unavailable [phone] Comfort Siddiqi APRN Primary Care Provider [phone] Encounter Details Date Type Department Care Team (Latest Contact Info) Description 04/10/2025 1:31 PM EDT - 04/10/2025 11:59 PM EDT Hospital Encounter [facility] CC Radiation [address] AT[address]V [place] [address] Discharge Disposition: Still a Patient Social History [...] Appointment [facility] CC Radiation [address] [address] 04/19/2025 2:10 PM EDT Appointment [facility] CC Radiation [address] [address] 04/22/2025 2:10 PM EDT Appointment [facility] CC Radiation [address] [address] 04/23/2025 2:10 PM EDT Appointment [facility] CC Radiation [address] [address] 04/24/2025 2:10 PM EDT Appointment [facility] CC Radiation [address] [address] documented as of this encounter Goals Goal [...] documented as of this encounter Care Teams Cook Mayonnaise Relationship Specialty Start Date End Date Comfort SiddiqiTARUN [address] [place] [address] PCP - General 03/12/25 Km Wooten MD [address] [place] [address] Consulting Physician Radiation Oncology 02/14/25 documented as of this encounter
--- OUTSIDE RECORDS SUMMARY | 2025-04-11 13:31 | XMS_ITS | Encounter Summary ---
Author Organization [facility] Address [address] [id number] Care Team Providers Care Players Club Representative Name Role Phone Km Wooten MD Unavailable [phone] Comfort Siddiqi APRN Primary Care Provider [phone] Encounter Details Date Type Department Care Team (Late st Contact Info) Description 04/11/2025 1:31 PM EDT Hospital Encounter [facility] [address] [id number] [place] [address] Social History Tobacco Use Types Packs/Day Years [...] Appointment [facility] [address] [id number] [address] 04/19/2025 2:10 PM EDT Appointment [facility] [address] [phone] 04/22/2025 2:10 PM EDT Appointment [facility] [address] [address] 04/23/2025 2:10 PM EDT Appointment [facility] [address] [address] 04/24/2025 2:10 PM EDT Appointment [facility] [address] [address] documented as of this encounter [...] documented as of this encounter Care Teams Players Club Representative Relationship Specialty Start Date End Date Comfort Siddiqi APRN [address] [place] [address] PCP - General 03/12/25 Km Wooten MD [address] [place] [address] C[address]D [place] [address] Consulting Physician Radiation Oncology 02/14/25 documented as of this encounter
--- OUTSIDE RECORDS SUMMARY | 2025-04-11 13:50 | XMS_ITS | Encounter Summary ---
Author Organization [facility] Address [address] [place] [address] Care Team Providers Care Electronics Parts Sales Representative Name Role Phone Km Wooten MD Unavailable [phone] Comfort Siddiqi APRN Primary Care Provider [phone] Reason for Visit * Reason Comments OTV Encounter Details Date Type Department Care Team (Latest Contact Info) Description 04/11/2025 1:50 PM EDT Hospital Encounter [facility] [address] OH[address] [place] [address] Km Wooten MD [address] [place] [address] Malignant neoplasm of rectum (CMS/HCC) (Primary Dx) [...] Tripp is a 55 y.o. male with [id number] lower rectal adenocarcinoma receiving induction chemoradiation Radiation [...] Randolph MD, PGY-3 Resident Physician, Radiation Oncology [facility] Pager: [phone] Cosigned by Km Wooten MD at 04/11/2025 [...] Appointment [facility] [address] [id number] [place] [address] 04/19/2025 2:10 PM EDT Appointment [facility] [address] [id number] [place] [address] 04/22/2025 2:10 PM EDT Appointment [facility] [address] [id number] [place] [address] 04/23/2025 2:10 PM EDT Appointment [facility] [address] IT[address]R [place] [address] 04/24/2025 2:10 PM EDT Appointment [facility] [address] [id number] [place] [address] documented as of this encounter Goals Goal Patient Goal Type Associated Problems Recent Progress Patient-Stated? Author Autogenerat ed Goal Care Plan Autogenerated Problem No Lisa Johnstno documented as of this encounter Visit Diagnoses [...] documented as of this encounter Care Teams Electronics Parts Sales Representative Relationship Specialty Start Date End Date Comfort Siddiqi APRN [address] [place] [address] PCP - General 03/12/25 Km Wooten MD [address] [place] [address] Consulting Physician Radiation Oncology 02/14/25 documented as of this encounter
--- OUTSIDE RECORDS SUMMARY | 2025-04-12 13:42 | XMS_ITS | Encounter Summary ---
Author Organization Healthcare Address [address] [id number] Care Team Providers Care Pile Driving Technician Name Role Phone Km Wooten MD Unavailable Comfort Siddiqi APRN Primary Care Provider [phone] Encounter Details Date Type Department Care Team (Late st Contact Info) Description 04/12/2025 1:42 PM EDT Hospital Encounter [facility] [address] [id number] [place] [address] Social History Tobacco Use Types Packs/Day Years [...] Department Care Team (Late Contact Info) Description 04/18/2025 2:10 PM EDT Appointment [facility] [address] [place] [address] 04/19/2025 2:10 PM EDT Appointment [facility] [address] [address] 04/22/2025 2:10 PM EDT Appointment [facility] [address] [address] 04/23/2025 2:10 PM EDT Appointment [facility] [address] [address] 04/24/2025 2:10 PM EDT Appointment [facility] [address] [address] documented as of this encounter [...] documented as of this encounter Care Teams Pile Driving Technician Relationship Specialty Start Date End Date Comfort Siddiqi APRN [address] [place] [address] PCP - General 03/12/25 Km Wooten MD [address] [place] [address] C[address]D [place] [address] Consulting Physician Radiation Oncology 02/14/25 documented as of this encounter
--- OUTSIDE RECORDS SUMMARY | 2025-04-15 08:33 | XMS_ITS | Encounter Summary ---
Author Organization Healthcare Address [address] [id number] Care Team Providers Care Work Counselor Name Role Phone Km Wooten MD Unavailable [phone] Comfort Siddiqi APRN Primary Care Provider [phone] Encounter Details Date Type Department Care Team (Late Contact Info) Description 04/15/2025 8:33 AM EDT Hospital Encounter [facility] [address] [id number] [place] [address] Arrived Social History Tobacco Use Types Packs/Day [...] Appointment [facility] [address] [place], [place] [address] 04/19/2025 2:10 PM EDT Appointment [facility] [address] [address] 04/22/2025 2:10 PM EDT Appointment [facility] [address] [address] 04/23/2025 2:10 PM EDT Appointment [facility] [address] [address] 04/24/2025 2:10 PM EDT Appointment [facility] Rad[facility] [address] [address] documented as of this encounter Goals Goal [...] documented as of this encounter Care Teams Work Counselor Relationship Specialty Start Date End Date Comfort Siddiqi APRN [address] [place] [address] PCP - General 03/12/25 Km Wooten MD [address] [place] [address] [address] [place] [address] Consulting Physician Radiation Oncology 02/14/25 documented as of this encounter
--- OUTSIDE RECORDS SUMMARY | 2025-04-15 13:27 | XMS_ITS | Encounter Summary ---
Author Organization Healthcare Address [address] [id number] Care Team Providers Care Caregivers Non Medical Name Role Phone Km Wooten MD Unavailable [phone] Comfort Siddiqi APRN Primary Care Provider [phone] Encounter Details Date Type Department Care Team (Late Contact Info) Description 04/15/2025 1:27 PM EDT Hospital Encounter [facility] [address] [id number] [place] [address] Social History Tobacco Use Types Packs/Day Years [...] Appointment [facility] [address] [place] [address] 04/19/2025 2:10 PM EDT Appointment [facility] [address] [address] 04/22/2025 2:10 PM EDT Appointment [facility] [address] [address] 04/23/2025 2:10 PM EDT Appointment [facility] [address] [address] 04/24/2025 2:10 PM EDT Appointment [facility] [address] [address] documented as of this encounter [...] documented as of this encounter Care Teams Caregivers Non Medical Relationship Specialty Start Date End Date Comfort Siddiqi APRN [address] [place] [address] PCP - General 03/12/25 Km Wooten MD [address] [place] [address] C114D [place] [address] Consulting Physician Radiation Oncology 02/14/25 documented as of this encounter
--- OUTSIDE RECORDS SUMMARY | 2025-04-16 13:28 | XMS_ITS | Encounter Summary ---
Author Organization Healthcare Address [address] [id number] Care Team Providers Care Profile Grinder Name Role Phone Km Wooten MD Unavailable [phone] Comfort Siddiqi APRN Primary Care Provider [phone] Encounter Details Date Type Department Care Team (Late st Contact Info) Description 04/16/2025 1:28 PM EDT Hospital Encounter [facility] [address] [id number] [place] [address] Social History Tobacco Use Types Packs/Day Years [...] Appointment [facility] [address] [id number] [address] 04/19/2025 2:10 PM EDT Appointment [facility] [address] [address] 04/22/2025 2:10 PM EDT Appointment [facility] [address] [address] 04/23/2025 2:10 PM EDT Appointment [facility] [address] [address] 04/24/2025 2:10 PM EDT Appointment [facility] [address] [address] documented as of this encounter [...] documented as of this encounter Care Teams Profile Grinder Relationship Specialty Start Date End Date Comfort Siddiqi APRN [address] [place] [address] PCP - General 03/12/25 Km Wooten MD [address] [place] [address] C114D [place] [address] Consulting Physician Radiation Oncology 02/14/25 documented as of this encounter
--- OUTSIDE RECORDS SUMMARY | 2025-04-17 13:52 | XMS_ITS | Encounter Summary ---
Author Organization Healthcare Address [address] [id number] Care Team Providers Care Clinical Secretary Name Role Phone Km Wooten MD Unavailable [phone] Comfort Siddiqi APRN Primary Care Provider [phone] Encounter Details Date Type Department Care Team (Late st Contact Info) Description 04/17/2025 1:52 PM EDT Hospital Encounter [facility] [address] [id number] [place] [address] Social History Tobacco Use Types Packs/Day Years [...] Appointment [facility] [address] [place] [address] 04/19/2025 2:10 PM EDT Appointment [facility] [address] [address] 04/22/2025 2:10 PM EDT Appointment [facility] [address] [address] 04/23/2025 2:10 PM EDT Appointment [facility] [address] [address] 04/24/2025 2:10 PM EDT Appointment [facility] [address] [address] documented as of this encounter [...] as of this encounter Care Teams Clinical Secretary Relationship Specialty Start Date End Date Comfort Siddiqi APRN [address] [place] [address] PCP - General 03/12/25 Km Wooten MD [address] [place] [address] C114D [place] [address] Consulting Physician Radiation Oncology 02/14/25 documented as of this encounter
[2025-04-18 08:43] VITALS: BMI 43.9
--- OUTSIDE RECORDS SUMMARY | 2025-04-18 08:49 | XMS_ITS | Encounter Summary ---
Author Organization [facility] Address [address] [place] [address] Care Team Providers Care Trumpet Player Name Role Phone Tejal Saeed APRN Primary Care Provider [phone] Km Wooten MD Unavailable [phone] Comfort Siddiqi APRN Primary Care Provider [phone] Encounter Details Date Type Department Care Team (Late st Contact Info) Description 01/08/2025 Orders Only External Location [address] [place] [address] Provider, External Social History Tobacco [...] PM EDT Appointment [facility] [address] [address] 04/19/2025 2:10 PM EDT Appointment [facility] [address] [address] 04/22/2025 2:10 PM EDT Appointment [facility] [address] [address] 04/23/2025 2:10 PM EDT Appointment [facility] [address] [id number] [place] [address] 04/24/2025 2:10 PM EDT Appointment [facility] [address] [id number] [place] [address] documented as of this encounter Procedures Procedure [...] on filedocumented in this encounter Care Teams Trumpet Player Relationship Specialty Start Date End Date Tejal Saeed APRN [address] [place] [address] PCP - General 11/07/20 03/11/25 Comfort Siddiqi APRN [address] [place] [address] PCP - General 03/12/25 Km Wooten MD 800 [facility] [address] [place] [address] Consulting Physician Radiation Oncology 02/14/25 documented as of this encounter
--- OUTSIDE RECORDS SUMMARY | 2025-04-18 08:49 | XMS_ITS | Encounter Summary ---
Author Organization [facility] Address [address] [place] [address] Care Team Providers Care Art Manager Name Role Phone Km Wooten MD Unavailable [phone] Comfort Siddiqi APRN Primary Care Provider [phone] Encounter Details Date Type Department Care Team (Late st Contact Info) Description 04/11/2025 Orders Only [facility] [address] [id number] [place] [address] Radiation Oncology, Physician, [address] [place], [place] [id number] Social History Tobacco Use Types Packs/Day Years [...] [facility] [address] [phone] 04/19/2025 2:10 PM EDT Appointment [facility] [address] [phone] 04/22/2025 2:10 PM EDT Appointment [facility] [address] [phone] 04/23/2025 2:10 PM EDT Appointment [facility] [address] [phone] 04/24/2025 2:10 PM EDT Appointment [facility] [address] [address] documented as of this encounter Goals Goal Patient Goal Type Associated Problems Recent Progress Patient-Stated? Author Autogenerat ed Goal Care Plan Autogenerated Problem No Lisa Johnston documented as of this encounter Procedures Procedure Name Priority Date/Time Associated Diagnosis Comments RAD ONC ARIA SESSION SUMMARY Routine 04/11/2025 1:50 PM EDT documented in this encounter Results * Rad Onc Aria Session Summary (04/11/2025 1:50 PM EDT) Course ID C1 ARIA RADIATION ONCOLOGY Course Intent Curative w/chemo ARIA RADIATION ONCOLOGY Course Start Date 03/01/2025 8:45 AM ARIA RADIATION ONCOLOGY Course First Treatment Date 03/21/2025 2:04 PM ARIA RADIATION ONCOLOGY Course Last Treatment Date 04/11/2025 1:47 PM ARIA RADIATION ONCOLOGY Course Elapsed Days 21 ARIA RADIATION ONCOLOGY Reference Point ID Pelvis ARIA RADIATION ONCOLOGY Reference Point Dosage Given to Date [id number] Gy ARIA RADIATION ONCOLOGY Reference Point Session Dosage Given 1.33790101 Gy ARIA RADIATION ONCOLOGY Plan ID [id number] ARIA RADIATION ONCOLOGY Plan Name Pelvis& inguinals_PT V50 ARIA RADIATION ONCOLOGY Plan Fractions Treated to Date 16 ARIA RADIATION ONCOLOGY Plan Total Fractions Prescribed 25 ARIA RADIATION ONCOLOGY Plan Prescribed Dose Per Fraction 2 Gy ARIA RADIATION ONCOLOGY Plan Total Prescribed Dose 5,000 CGy ARIA RADIATION ONCOLOGY Plan Primary Reference Point Pelvis ARIA RADIATION ONCOLOGY 04/11/2025 1:50 PM EDT Physician Radiation Oncology RADIATION ONCOLO [...] documented as of this encounter Care Teams Art Manager Relationship Specialty Start Date End Date Comfort Siddiqi APRN [address] [place] [address] PCP - General 03/12/25 Km Wooten MD [address] [place] [address] Consulting Physician Radiation Oncology 02/14/25 documented as of this encounter
--- OUTSIDE RECORDS SUMMARY | 2025-04-18 08:49 | XMS_ITS | Encounter Summary ---
Author Organization Healthcare Address [address] [place] [address] Care Team Providers Care Institutional Commodity Analyst Name Role Phone Km Wooten MD Unavailable [phone] Comfort Siddiqi APRN Primary Care Provider [phone] Encounter Details Date Type Department Care Team (Late st Contact Info) Description 03/25/2025 Orders Only [facility] [address] [id number] [place] [address] Radiation Oncology, Physician, [address] [place], [place] [phone] Social History Tobacco Use Types Packs/Day Years [...] Appointment [facility] [address] [phone] 04/19/2025 2:10 PM EDT Appointment [facility] [address] [address] 04/22/2025 2:10 PM EDT Appointment [facility] [address] [phone] 04/23/2025 2:10 PM EDT Appointment [facility] [address] [address] 04/24/2025 2:10 PM EDT Appointment [facility] Radiation [address] [address] documented as of this encounter Goals Goal [...] ONCOLOGY Reference Point Dosage Given to Date [id number] Gy ARIA RADIATION ONCOLOGY Reference Point Session Dosage Given 1.78739648 Gy ARIA RADIATION ONCOLOGY Plan ID A1A8 [...] documented as of this encounter Care Teams Institutional Commodity Analyst Relationship Specialty Start Date End Date Comfort Siddiqi APRN [address] [place] [address] PCP - General 03/12/25 Km Wooten MD [address] [place] [address] Consulting Physician Radiation Oncology 02/14/25 documented as of this encounter
--- OUTSIDE RECORDS SUMMARY | 2025-04-18 08:49 | XMS_ITS | Encounter Summary ---
Author Organization [facility] Address [address] [place] [address] Care Team Providers Care Wash Test Checker Name Role Phone Km Wooten MD Unavailable [phone] Comfort Siddiqi APRN Primary Care Provider [phone] Encounter Details Date Type Department Care Team [...] Appointment [facility] [address] [id number] [place] [address] 04/19/2025 2:10 PM EDT Appointment [facility] [address] [id number] [place] [address] 04/22/2025 2:10 PM EDT Appointment [facility] [address] [id number] [place] [address] 04/23/2025 2:10 PM EDT Appointment [facility] [address] [id number] [place] [address] 04/24/2025 2:10 PM EDT Appointment [facility] Radiation [address] [id number] [place] [address] documented as of this encounter Goals Goal Patient Goal Type Associated Problems Recent Progress Patient-Stated? Author Autogenerat ed Goal Care Plan Autogenerated Problem No PrestonMayraparisa Thayer documented as of this encounter Visit [...] documented as of this encounter Care Teams Wash Test Checker Relationship Specialty Start Date End Date Comfort Siddiqi APRN [address] [place] [address] PCP - General 03/12/25 Km Wooten MD 800 [facility] [address] [place] [address] Consulting Physician Radiation Oncology 02/14/25 documented as of this encounter
--- OUTSIDE RECORDS SUMMARY | 2025-04-18 08:49 | XMS_ITS | Encounter Summary ---
Author Organization Healthcare Address [address] [place] [address] Care Team Providers Care Director Of Brand Marketing Name Role Phone Km Wooten MD Unavailable [phone] Comfort Siddiqi APRN Primary Care Provider [phone] Encounter Details Date Type Department Care Team (Late st Contact Info) Description 04/12/2025 Orders Only [facility] [address] [id number] [place] [address] Radiation Oncology, Physician, [address] [place], [place] [phone] Social History Tobacco Use Types Packs/Day Years [...] [facility] [address] [phone] 04/19/2025 2:10 PM EDT Appointment [facility] [address] [phone] 04/22/2025 2:10 PM EDT Appointment [facility] [address] [place] [phone] 04/23/2025 2:10 PM EDT Appointment [facility]iation [address] [phone] 04/24/2025 2:10 PM EDT Appointment [facility] Radiation [address] [address] documented as of this encounter Goals Goal Patient Goal Type Associated Problems Recent Progress Patient-Stated? Author Autogenerat ed Goal Care Plan Autogenerated Problem No Lisa Johnston documented as of this encounter Procedures Procedure Name Priority Date/Time Associated Diagnosis Comments RAD ONC ARIA SESSION SUMMARY Routine 04/12/2025 2:21 PM EDT documented in this encounter Results * Rad Onc Aria Session Summary (04/12/2025 2:21 PM EDT) Course ID C1 ARIA RADIATION ONCOLOGY Course Intent Curative w/chemo ARIA RADIATION ONCOLOGY Course Start Date 03/01/2025 8:45 AM ARIA RADIATION ONCOLOGY Course First Treatment Date 03/21/2025 2:04 PM ARIA RADIATION ONCOLOGY Course Last Treatment Date 04/12/2025 2:19 PM ARIA RADIATION ONCOLOGY Course Elapsed Days 22 ARIA RADIATION ONCOLOGY Reference Point ID Pelvis ARIA RADIATION ONCOLOGY Reference Point Dosage Given to Date [id number] Gy ARIA RADIATION ONCOLOGY Reference Point Session Dosage Given 1.64232094 Gy ARIA RADIATION ONCOLOGY Plan ID A1A8 ARIA RADIATION ONCOLOGY Plan Name Pelvis& inguinals_PT V50 ARIA RADIATION ONCOLOGY Plan Fractions Treated to Date 17 ARIA RADIATION ONCOLOGY Plan Total Fractions Prescribed 25 ARIA RADIATION ONCOLOGY Plan Prescribed Dose Per Fraction 2 Gy ARIA RADIATION ONCOLOGY Plan Total Prescribed Dose 5,000 CGy ARIA RADIATION ONCOLOGY Plan Primary Reference Point Pelvis ARIA RADIATION ONCOLOGY 04/12/2025 2:21 PM EDT Physician Radiation Oncology RADIATION [...] of this encounter Care Teams Director Of Brand Marketing Relationship Specialty Start Date End Date Comfort Siddiqi APRN [address] [place] [address] PCP - General 03/12/25 Km Wooten MD [address] [place] [address] Consulting Physician Radiation Oncology 02/14/25 documented as of this encounter
--- OUTSIDE RECORDS SUMMARY | 2025-04-18 08:49 | XMS_ITS | Encounter Summary ---
Author Organization Healthcare Address [address] [place] [address] Care Team Providers Care Environmental Auditor Name Role Phone Km Wooten MD Unavailable [phone] Comfort Siddiqi APRN Primary Care Provider [phone] Encounter Details Date Type Department Care Team (Late st Contact Info) Description 04/10/2025 Orders Only [facility] [address] [id number] [place] [address] Radiation Oncology, Physician, [address] [place], [place] [address] Social History Tobacco Use Types Packs/Day Years [...] Appointment [facility] [address] [phone] 04/19/2025 2:10 PM EDT Appointment [facility] Radiation [address] [phone] 04/22/2025 2:10 PM EDT Appointment [facility] Radiation [address] [place] [phone] 04/23/2025 2:10 PM EDT Appointment [facility] Radiation [address] [address] 04/24/2025 2:10 PM EDT Appointment [facility] Radiation [address] [address] documented as of this encounter Goals Goal Patient Goal Type Associated Problems Recent Progress Patient-Stated? Author Autogenerat ed Goal Care Plan Autogenerated Problem No Lisa Johnston documented as of this encounter Procedures Procedure Name Priority Date/Time Associated Diagnosis Comments RAD ONC ARIA SESSION SUMMARY Routine 04/10/2025 1:44 PM EDT documented in this encounter Results * Rad Onc Aria Session Summary (04/10/2025 1:44 PM EDT) Course ID C1 ARIA RADIATION ONCOLOGY Course Intent Curative w/chemo ARIA RADIATION ONCOLOGY Course Start Date 03/01/2025 8:45 AM ARIA RADIATION ONCOLOGY Course First Treatment Date 03/21/2025 2:04 PM ARIA RADIATION ONCOLOGY Course Last Treatment Date 04/10/2025 1:42 PM ARIA RADIATION ONCOLOGY Course Elapsed Days 20 ARIA RADIATION ONCOLOGY Reference Point ID Pelvis ARIA RADIATION ONCOLOGY Reference Point Dosage Given to Date 29.02770029 Gy ARIA RADIATION ONCOLOGY Reference Point Session Dosage Given 1.52577509 Gy ARIA RADIATION ONCOLOGY Plan ID A1A8 ARIA RADIATION ONCOLOGY Plan Name Pelvis& inguinals_PT V50 ARIA RADIATION ONCOLOGY Plan Fractions Treated to Date 15 ARIA RADIATION ONCOLOGY Plan Total Fractions Prescribed 25 ARIA RADIATION ONCOLOGY Plan Prescribed Dose Per Fraction 2 Gy ARIA RADIATION ONCOLOGY Plan Total Prescribed Dose 5,000 CGy ARIA RADIATION ONCOLOGY Plan Primary Reference Point Pelvis ARIA RADIATION ONCOLOGY 04/10/2025 1:44 PM EDT Physician Radiation Oncology RADIATION ONCOLO [...] as of this encounter Care Teams Environmental Auditor Relationship Specialty Start Date End Date Comfort Siddiqi APRN [address] [place] [address] PCP - General 03/12/25 Km Wooten MD [address] [place] [address] Consulting Physician Radiation Oncology 02/14/25 documented as of this encounter
--- OUTSIDE RECORDS SUMMARY | 2025-04-18 08:50 | XMS_ITS | Encounter Summary ---
Author Organization Healthcare Address [address] [place] [address] Care Team Providers Care Professor Of Biological Sciences Name Role Phone Km Wooten MD Unavailable [phone] Comfort Siddiqi APRN Primary Care Provider [phone] Encounter Details Date Type Department Care Team (Late st Contact Info) Description 04/02/2025 Orders Only [facility] [address] [id number] [place] [address] Radiation Oncology, Physician, [address] [place], [place] [address] Social History Tobacco Use Types Packs/Day Years [...] Appointment [facility] [address] [phone] 04/19/2025 2:10 PM EDT Appointment [facility] Radiation [address] [phone] 04/22/2025 2:10 PM EDT Appointment [facility] Radiation [address] [place] [phone] 04/23/2025 2:10 PM EDT Appointment [facility] Radiation [address] [phone] 04/24/2025 2:10 PM EDT Appointment [facility] Radiation [address] [address] documented as of this encounter Goals Goal [...] ONCOLOGY Reference Point Dosage Given to Date 17.67805959 Gy ARIA RADIATION ONCOLOGY Reference Point Session Dosage Given 1.51824666 Gy ARIA RADIATION ONCOLOGY Plan ID A1A8 [...] 2:18 PM EDT Physician Radiation Oncology RADIATION ONCOLO [...] of this encounter Care Teams Professor Of Biological Sciences Relationship Specialty Start Date End Date Comfort Siddiqi APRN [address] [place] [address] PCP - General 03/12/25 Km Wooten MD [address] [place] [address] Consulting Physician Radiation Oncology 02/14/25 documented as of this encounter
--- OUTSIDE RECORDS SUMMARY | 2025-04-18 08:50 | XMS_ITS | Encounter Summary ---
Author Organization [facility] Address [address] [place] [address] Care Team Providers Care Fine Arts Teacher Name Role Phone Tejal Saeed APRN Primary Care Provider [phone] Km Wooten MD Unavailable [phone] Encounter Details Date Type Department Care [...] [facility] Radiation [address] [address] 04/19/2025 2:10 PM EDT Appointment [facility] Radiation [address] [address] 04/22/2025 2:10 PM EDT Appointment [facility] Radiation [address] [address] 04/23/2025 2:10 PM EDT Appointment [facility] Radiation [address] MK[address] [place] [address] 04/24/2025 2:10 PM EDT Appointment [facility] Radiation [address] RN[address]M [place] [address] documented as of this encounter Visit Diagnoses [...] documented as of this encounter Care Teams Fine Arts Teacher Relationship Specialty Start Date End Date Tejal Saeed APRN [address] [place] [address] PCP - General 11/07/20 03/11/25 Km Wooten MD [address] [place] [address] Consulting Physician Radiation Oncology 02/14/25 documented as of this encounter
--- OUTSIDE RECORDS SUMMARY | 2025-04-18 08:50 | XMS_ITS | Encounter Summary ---
Author Organization [facility] Address [address] [place] [address] Care Team Providers Care Can Top Setter Name Role Phone Km Wooten MD Unavailable [phone] Comfort Siddiqi APRN Primary Care Provider [phone] Encounter Details Date Type Department Care Team [...] Appointment [facility] Radiation [address] [id number] [place] [address] 04/19/2025 2:10 PM EDT Appointment [facility] Radiation [address] [id number] [place] [address] 04/22/2025 2:10 PM EDT Appointment [facility] Radiation [address] [id number] [place] [address] 04/23/2025 2:10 PM EDT Appointment [facility] Radiation [address] KY[address]J [place] [address] 04/24/2025 2:10 PM EDT Appointment [facility] Radiation [address] [id number] [place] [address] documented as of this encounter Goals Goal [...] as of this encounter Care Teams Can Top Setter Relationship Specialty Start Date End Date Comfort Siddiqi APRN [address] [place] [address] PCP - General 03/12/25 Km Wooten MD [address] [place] [address] Consulting Physician Radiation Oncology 02/14/25 documented as of this encounter
--- OUTSIDE RECORDS SUMMARY | 2025-04-18 08:50 | XMS_ITS | Encounter Summary ---
Author Organization [facility] Address [address] [place] [address] Care Team Providers Care Breeder Service Technician Name Role Phone Tejal Saeed APRN Primary Care Provider [phone] Km Wooten MD Unavailable [phone] Comfort Siddiqi APRN Primary Care Provider [phone] Encounter Details Date Type Department Care Team (Late st Contact Info) Description 01/08/2025 Orders Only External Location [address] [place] [address] Provider, External Social History Tobacco [...] PM EDT Appointment [facility] Radiation [address] [address] 04/19/2025 2:10 PM EDT Appointment [facility] Radiation [address] [phone] 04/22/2025 2:10 PM EDT Appointment [facility] Radiation [address] [phone] 04/23/2025 2:10 PM EDT Appointment [facility] Radiation [address] [id number] [place] [address] 04/24/2025 2:10 PM EDT Appointment [facility] Radiation [address] [id number] [place] [address] documented as of this encounter Procedures Procedure [...] on filedocumented in this encounter Care Teams Breeder Service Technician Relationship Specialty Start Date End Date Tejal Saeed APRN [address] [place] [address] PCP - General 11/07/20 03/11/25 Comfort Siddiqi APRN [address] [place] [address] PCP - General 03/12/25 Km Wooten MD 800 [facility] [address] [place] [address] Consulting Physician Radiation Oncology 02/14/25 documented as of this encounter
--- OUTSIDE RECORDS SUMMARY | 2025-04-18 08:50 | XMS_ITS | Encounter Summary ---
Author Organization [facility] Address [address] [place] [address] Care Team Providers Care Buckram Sewer Name Role Phone Tejal Saeed APRN Primary Care Provider [phone] Km Wooten MD Unavailable [phone] Encounter Details Date Type Department Care Team (Late st Contact Info) Description 02/26/2025 Telephone [facility] [address] [place] [address] Perlita Her I, RN [facility] Social History Tobacco Use [...] Appointment [facility] Radiation [address] [id number] [place] [address] 04/19/2025 2:10 PM EDT Appointment [facility] Radiation [address] [address] 04/22/2025 2:10 PM EDT Appointment [facility] Radiation [address] [place] [address] 04/23/2025 2:10 PM EDT Appointment [facility] Radiation [address] [address] 04/24/2025 2:10 PM EDT Appointment [facility] Radiation [address] [address] documented as of this encounter Visit Diagnoses [...] documented as of this encounter Care Teams Buckram Sewer Relationship Specialty Start Date End Date Tejal Saeed APRN [facility] [place] [address] PCP - General 11/07/20 03/11/25 Km Wooten MD [address] [place] [address] Consulting Physician Radiation Oncology 02/14/25 documented as of this encounter
--- OUTSIDE RECORDS SUMMARY | 2025-04-18 08:50 | XMS_ITS | Encounter Summary ---
Author Organization Healthcare Address [address] [place] [address] Care Team Providers Care Inspector Grain [employer] Name Role Phone Km Wooten MD Unavailable Comfort Siddiqi APRN Primary Care Provider [phone] Encounter Details Date Type Department Care Team (Late st Contact Info) Description 04/01/2025 Orders Only [facility] Radiation [address] EU[address]C [place] [address] Radiation Oncology, Physician, [address] [place], [place] [phone] Social History Tobacco Use Types Packs/Day Years [...] [facility] Radiation [address] [phone] 04/19/2025 2:10 PM EDT Appointment [facility] Radiation [address] [phone] 04/22/2025 2:10 PM EDT Appointment [facility] Radiation [address] [place] [phone] 04/23/2025 2:10 PM EDT Appointment [facility] Radiation [address] [phone] 04/24/2025 2:10 PM EDT Appointment [facility] Radiation [address] [address] documented as of this encounter Goals Goal [...] ONCOLOGY Reference Point Dosage Given to Date 15.49749752 Gy ARIA RADIATION ONCOLOGY Reference Point Session Dosage Given 1.54241463 Gy ARIA RADIATION ONCOLOGY Plan ID A1A8 [...] 2:13 PM EDT Physician Radiation Oncology RADIATION ONCOLO [...] as of this encounter Care Teams Inspector [employer]rain [employer] Relationship Specialty Start Date End Date Comfort Siddiqi APRN [address] [place] [address] PCP - General 03/12/25 Km Wooten MD [address] [place] [address] Consulting Physician Radiation Oncology 02/14/25 documented as of this encounter
--- OUTSIDE RECORDS SUMMARY | 2025-04-18 08:50 | XMS_ITS | Encounter Summary ---
Author Organization [facility] Address [address] [place] [address] Care Team Providers Care Stack Attendant Name Role Phone Tejal Saeed APRN Primary Care Provider [phone] Km Wooten MD Unavailable [phone] Comfort Siddiqi APRN Primary Care Provider [phone] Encounter Details Date Type Department Care Team (Late st Contact Info) Description 01/08/2025 Orders Only External Location [address] [place] [address] Provider, External Social History Tobacco [...] PM EDT Appointment [facility] Radiation [address] [address] 04/19/2025 2:10 PM EDT Appointment [facility] Radiation [address] [phone] 04/22/2025 2:10 PM EDT Appointment [facility] Radiation [address] [address] 04/23/2025 2:10 PM EDT Appointment [facility] Radiation [address] [place] [address] 04/24/2025 2:10 PM EDT Appointment [facility] Radiation [address] PT[address] [place] [address] documented as of this encounter Procedures Procedure [...] on filedocumented in this encounter Care Teams Stack Attendant Relationship Specialty Start Date End Date Tejal Saeed APRN [address] [place] [address] PCP - General 11/07/20 03/11/25 Comfort Siddiqi APRN [address] [place] [address] PCP - General 03/12/25 Km Wooten MD 800 [facility] [address] [place] [address] Consulting Physician Radiation Oncology 02/14/25 documented as of this encounter
--- OUTSIDE RECORDS SUMMARY | 2025-04-18 08:50 | XMS_ITS | Encounter Summary ---
Author Organization [facility] Address [address] [place] [address] Care Team Providers Care Steward/Stewardess Lounge Name Role Phone Tejal Saeed APRN Primary Care Provider [phone] Km Wooten MD Unavailable [phone] Encounter Details Date Type Department Care Team (Late st Contact Info) Description 02/20/2025 Telephone [facility] [address], [address] [place] [address] [place] [address] Social History Tobacco Use Types Packs/Day Years [...] appointment made, need PSA lab test, called [facility], she will fax to our office. Susi Bustos RN documented in this encounter Plan of Treatment Upcoming Encounters Date Type Department Care Team (Late st Contact Info) Description 04/18/2025 2:10 PM EDT Appointment [facility] [address] [id number] [place] [address] 04/19/2025 2:10 PM EDT Appointment [facility] [address] [place], [place] [address] 04/22/2025 2:10 PM EDT Appointment [facility] [address] JS[place], [place] [address] 04/23/2025 2:10 PM EDT Appointment [facility] [address] [address] 04/24/2025 2:10 PM EDT Appointment [facility] [address] [address] documented as of this encounter Visit Diagnoses [...] documented as of this encounter Care Teams Steward/Stewardess Lounge Relationship Specialty Start Date End Date Tejal Saeed APRN [facility] [place] [address] PCP - General 11/07/20 03/11/25 Km Wooten MD [address] [facility] C[address]D [place] [address] Consulting Physician Radiation Oncology 02/14/25 documented as of this encounter
--- OUTSIDE RECORDS SUMMARY | 2025-04-18 08:50 | XMS_ITS | Encounter Summary ---
Author Organization Healthcare Address [address] [place] [address] Care Team Providers Care Barrow Worker Helper Name Role Phone Tejal Saeed APRN Primary Care Provider [phone] Km Wooten MD Unavailable [phone] Encounter Details Date Type Department Care Team (Late Contact Info) Description 02/21/2025 Telephone [facility] Head[facility] Neck [facility] Res[facility] [address] [facility], 2nd [place] [address] Eric Tellez MD [address] [place] [address] Social History Tobacco Use Types [...] [facility] Radiation [address] [facility]. [id number] [place] [address] 04/19/2025 2:10 PM EDT Appointment [facility] [address] IE266N [place] [address] 04/22/2025 2:10 PM EDT Appointment [facility] [address] [id number] [place] [address] 04/23/2025 2:10 PM EDT Appointment [facility] [address] [id number] [place] [address] 04/24/2025 2:10 PM EDT Appointment [facility] [address] [id number] [place] [address] documented as of this encounter Visit Diagnoses [...] documented as of this encounter Care Teams Barrow Worker Helper Relationship Specialty Start Date End Date Tejal Saeed APRN [address] [place] [address] PCP - General 11/07/20 03/11/25 Km Wooten MD [address] [place] [address] Consulting Physician Radiation Oncology 02/14/25 documented as of this encounter
--- OUTSIDE RECORDS SUMMARY | 2025-04-18 08:50 | XMS_ITS | Encounter Summary ---
Author Organization [facility] Address [address] [place] [id number] Care Team Providers Care Metallurgist Process Name Role Phone Tejal Saeed APRN Primary Care Provider [phone] Km Wooten MD Unavailable [phone] Encounter Details Date Type Department Care Team (Late st Contact Info) Description 02/20/2025 Telephone [place] [facility] [address], [address] [place] [address] [place] [address] Social History Tobacco Use Types Packs/Day Years [...] EDT Appointment [facility] [address] [id number] [place] [address] 04/19/2025 2:10 PM EDT Appointment [facility] [address] [address] 04/22/2025 2:10 PM EDT Appointment [facility] [address] [address] 04/23/2025 2:10 PM EDT Appointment [facility] [address] [address] 04/24/2025 2:10 PM EDT Appointment [facility] [address] [address] documented as of this encounter Visit Diagnoses [...] documented as of this encounter Care Teams Metallurgist Process Relationship Specialty Start Date End Date Tejal Saeed APRN [facility] [place] [address] PCP - General 11/07/20 03/11/25 Km Wooten MD [address] [facility] [address] [place] [address] Consulting Physician Radiation Oncology 02/14/25 documented as of this encounter
--- OUTSIDE RECORDS SUMMARY | 2025-04-18 08:50 | XMS_ITS | Encounter Summary ---
Author Organization Healthcare Address [address] [place] [address] Care Team Providers Care Machine Operator Cane Cutter Name Role Phone Km Wooten MD Unavailable [phone] Comfort Siddiqi APRN Primary Care Provider [phone] Encounter Details Date Type Department Care Team (Late st Contact Info) Description 03/29/2025 Orders Only [facility] [address] [id number] [place] [address] Radiation Oncology, Physician, [address] [place], [place] [id number] Social History Tobacco Use Types Packs/Day Years [...] Appointment [facility] [address] [address] 04/19/2025 2:10 PM EDT Appointment [facility] [address] [address] 04/22/2025 2:10 PM EDT Appointment [facility] [address] [place] [phone] 04/23/2025 2:10 PM EDT Appointment [facility] [address] [address] 04/24/2025 2:10 PM EDT Appointment [facility] Radiation [address] [address] documented as of this encounter Goals Goal [...] ONCOLOGY Reference Point Dosage Given to Date [id number] Gy ARIA RADIATION ONCOLOGY Reference Point Session Dosage Given 1.48005573 Gy ARIA RADIATION ONCOLOGY Plan ID [id number] [...] as of this encounter Care Teams Machine Operator Cane Cutter Relationship Specialty Start Date End Date Comfort Siddiqi APRN [address] [place] [address] PCP - General 03/12/25 Km Wooten MD [address] [place] [address] Consulting Physician Radiation Oncology 02/14/25 documented as of this encounter
--- OUTSIDE RECORDS SUMMARY | 2025-04-18 08:51 | XMS_ITS | Encounter Summary ---
Author Organization Healthcare Address [address] [place] [address] Care Team Providers Care Meteorological Aide Name Role Phone Km Wooten MD Unavailable [phone] Comfort Siddiqi APRN Primary Care Provider [phone] Encounter Details Date Type Department Care Team (Late st Contact Info) Description 04/15/2025 Orders Only [facility] [address] [id number] [place] [address] Radiation Oncology, Physician, [address] [place], [place] [id number] Social History Tobacco Use Types Packs/Day Years [...] [facility] [address] [address] 04/19/2025 2:10 PM EDT Appointment [facility] [address] [address] 04/22/2025 2:10 PM EDT Appointment [facility] [address] [address] 04/23/2025 2:10 PM EDT Appointment [facility] [address] [address] 04/24/2025 2:10 PM EDT Appointment [facility] [address] [address] documented as of this encounter Goals Goal Patient Goal Type Associated Problems Recent Progress Patient-Stated? Author Autogenerat ed Goal Care Plan Autogenerated Problem No Lisa Johnston documented as of this encounter Procedures Procedure Name Priority Date/Time Associated Diagnosis Comments RAD ONC ARIA SESSION SUMMARY Routine 04/15/2025 1:44 PM EDT documented in this encounter Results * Rad Onc Aria Session Summary (04/15/2025 1:44 PM EDT) Course ID C1 ARIA RADIATION ONCOLOGY Course Intent Curative w/chemo ARIA RADIATION ONCOLOGY Course Start Date 03/01/2025 8:45 AM ARIA RADIATION ONCOLOGY Course First Treatment Date 03/21/2025 2:04 PM ARIA RADIATION ONCOLOGY Course Last Treatment Date 04/15/2025 1:42 PM ARIA RADIATION ONCOLOGY Course Elapsed Days 25 ARIA RADIATION ONCOLOGY Reference Point ID Pelvis ARIA RADIATION ONCOLOGY Reference Point Dosage Given to Date [id number] Gy ARIA RADIATION ONCOLOGY Reference Point Session Dosage Given [id number] Gy ARIA RADIATION ONCOLOGY Plan ID A1A8 ARIA RADIATION ONCOLOGY Plan Name Pelvis& inguinals_PT V50 ARIA RADIATION ONCOLOGY Plan Fractions Treated to Date 18 ARIA RADIATION ONCOLOGY Plan Total Fractions Prescribed 25 ARIA RADIATION ONCOLOGY Plan Prescribed Dose Per Fraction 2 Gy ARIA RADIATION ONCOLOGY Plan Total Prescribed Dose 5,000 CGy ARIA RADIATION ONCOLOGY Plan Primary Reference Point Pelvis ARIA RADIATION ONCOLOGY 04/15/2025 1:44 PM EDT Physician Radiation Oncology RADIATION [...] documented as of this encounter Care Teams Meteorological Aide Relationship Specialty Start Date End Date Comfort Siddiqi APRN [address] [place] [address] PCP - General 03/12/25 Km Wooten MD [address] [place] [address] Consulting Physician Radiation Oncology 02/14/25 documented as of this encounter
--- OUTSIDE RECORDS SUMMARY | 2025-04-18 08:51 | XMS_ITS | Encounter Summary ---
Author Organization [facility] Address [address] [place] [address] Care Team Providers Care Shuttle Buggy Operator Name Role Phone Km Wooten MD Unavailable [phone] Comfort Siddiqi APRN Primary Care Provider [phone] Encounter Details Date Type Department Care Team (Latest Contact Info) Description 04/15/2025 Travel Social History Tobacco Use Types Packs/Day [...] Appointment [facility] [address] [id number] [place] [address] 04/19/2025 2:10 PM EDT Appointment [facility] [address] [id number] [place] [address] 04/22/2025 2:10 PM EDT Appointment [facility] [address] [id number] [place] [address] 04/23/2025 2:10 PM EDT Appointment [facility] [address] [id number] [place] [address] 04/24/2025 2:10 PM EDT Appointment [facility] Radiation [address] [id number] [place] [address] documented as of this encounter Goals Goal [...] documented as of this encounter Care Teams Shuttle Buggy Operator Relationship Specialty Start Date End Date Comfort Siddiqi APRN [address] [place] [address] PCP - General 03/12/25 Km Wooten MD [address] [facility] [address] [place] [address] Consulting Physician Radiation Oncology 02/14/25 documented as of this encounter
--- OUTSIDE RECORDS SUMMARY | 2025-04-18 08:51 | XMS_ITS | Encounter Summary ---
Author Organization [facility] Address [address] [place] [address] Care Team Providers Care Territory Account Representative Name Role Phone Tejal Saeed APRN Primary Care Provider [phone] Km Wooten MD Unavailable [phone] Encounter Details Date Type Department Care [...] [facility] [address] [address] 04/19/2025 2:10 PM EDT Appointment [facility] [address] [address] 04/22/2025 2:10 PM EDT Appointment [facility] [address] [address] 04/23/2025 2:10 PM EDT Appointment [facility] [address] [address] 04/24/2025 2:10 PM EDT Appointment [facility] [address] [address] documented as of this encounter Goals Goal [...] documented as of this encounter Care Teams Territory Account Representative Relationship Specialty Start Date End Date Tejal Saeed, [employer] TECHNICIAN [address] [place] [address] PCP - General 11/07/20 03/11/25 Km Wooten MD [address] [facility] [address] [place] [address] Consulting Physician Radiation Oncology 02/14/25 documented as of this encounter
--- OUTSIDE RECORDS SUMMARY | 2025-04-18 08:51 | XMS_ITS | Encounter Summary ---
Author Organization Healthcare Address [address] [place] [address] Care Team Providers Care Digital Forensic Analyst Name Role Phone mK Wooten MD Unavailable Comfort Siddiqi APRN Primary Care Provider [phone] Encounter Details Date Type Department Care Team (Late st Contact Info) Description 04/17/2025 Orders Only [facility] [address] [id number] [place] [address] Radiation Oncology, Physician, [address] [place], [place] [id number] Social History Tobacco Use Types Packs/Day Years [...] [facility] [address] [address] 04/19/2025 2:10 PM EDT Appointment [facility] [address] [address] 04/22/2025 2:10 PM EDT Appointment [facility] [address] [place] [address] 04/23/2025 2:10 PM EDT Appointment [facility] [address] [address] 04/24/2025 2:10 PM EDT Appointment [facility] Radiation [address] [address] documented as of this encounter Goals Goal Patient Goal Type Associated Problems Recent Progress Patient-Stated? Author Autogenerat ed Goal Care Plan Autogenerated Problem No Lisa Johnston documented as of this encounter Procedures Procedure Name Priority Date/Time Associated Diagnosis Comments RAD ONC ARIA SESSION SUMMARY Routine 04/17/2025 2:14 PM EDT documented in this encounter Results * Rad Onc Aria Session Summary (04/17/2025 2:14 PM EDT) Course ID C1 ARIA RADIATION ONCOLOGY Course Intent Curative w/chemo ARIA RADIATION ONCOLOGY Course Start Date 03/01/2025 8:45 AM ARIA RADIATION ONCOLOGY Course First Treatment Date 03/21/2025 2:04 PM ARIA RADIATION ONCOLOGY Course Last Treatment Date 04/17/2025 2:12 PM ARIA RADIATION ONCOLOGY Course Elapsed Days 27 ARIA RADIATION ONCOLOGY Reference Point ID Pelvis ARIA RADIATION ONCOLOGY Reference Point Dosage Given to Date 39.0881941 Gy ARIA RADIATION ONCOLOGY Reference Point Session Dosage Given [id number] Gy ARIA RADIATION ONCOLOGY Plan ID A1A8 ARIA RADIATION ONCOLOGY Plan Name Pelvis& inguinals_PT V50 ARIA RADIATION ONCOLOGY Plan Fractions Treated to Date 20 ARIA RADIATION ONCOLOGY Plan Total Fractions Prescribed 25 ARIA RADIATION ONCOLOGY Plan Prescribed Dose Per Fraction 2 Gy ARIA RADIATION ONCOLOGY Plan Total Prescribed Dose 5,000 CGy ARIA RADIATION ONCOLOGY Plan Primary Reference Point Pelvis ARIA RADIATION ONCOLOGY 04/17/2025 2:14 PM EDT Physician Radiation Oncology RADIATION ONCOLO [...] documented as of this encounter Care Teams Digital Forensic Analyst Relationship Specialty Start Date End Date Comfort Siddiqi APRN [address] [place] [address] PCP - General 03/12/25 Km Wooten MD [address] [place] [address] Consulting Physician Radiation Oncology 02/14/25 documented as of this encounter
--- OUTSIDE RECORDS SUMMARY | 2025-04-18 08:51 | XMS_ITS | Encounter Summary ---
Author Organization Healthcare Address [address] [place] [address] Care Team Providers Care Teacher Lip Reading Name Role Phone Km Wooten MD Unavailable [phone] Comfort Siddiqi APRN Primary Care Provider [phone] Encounter Details Date Type Department Care Team (Late st Contact Info) Description 04/16/2025 Orders Only [facility] [address] [id number] [place] [address] Radiation Oncology, Physician, [address] [place], [place] [address] Social History Tobacco Use Types Packs/Day Years [...] Appointment [facility] [address] [address] 04/19/2025 2:10 PM EDT Appointment [facility] [address] [address] 04/22/2025 2:10 PM EDT Appointment [facility] Rad[facility] [address] [place] [phone] 04/23/2025 2:10 PM EDT Appointment [facility] Radiation [address] [address] 04/24/2025 2:10 PM EDT Appointment [facility] Radiation [address] [address] documented as of this encounter Goals Goal Patient Goal Type Associated Problems Recent Progress Patient-Stated? Author Autogenerat ed Goal Care Plan Autogenerated Problem No Lisa Johnston documented as of this encounter Procedures Procedure Name Priority Date/Time Associated Diagnosis Comments RAD ONC ARIA SESSION SUMMARY Routine 04/16/2025 2:14 PM EDT documented in this encounter Results * Rad Onc Aria Session Summary (04/16/2025 2:14 PM EDT) Course ID C1 ARIA RADIATION ONCOLOGY Course Intent Curative w/chemo ARIA RADIATION ONCOLOGY Course Start Date 03/01/2025 8:45 AM ARIA RADIATION ONCOLOGY Course First Treatment Date 03/21/2025 2:04 PM ARIA RADIATION ONCOLOGY Course Last Treatment Date 04/16/2025 2:12 PM ARIA RADIATION ONCOLOGY Course Elapsed Days 26 ARIA RADIATION ONCOLOGY Reference Point ID Pelvis ARIA RADIATION ONCOLOGY Reference Point Dosage Given to Date [id number] Gy ARIA RADIATION ONCOLOGY Reference Point Session Dosage Given 1.23171213 Gy ARIA RADIATION ONCOLOGY Plan ID A1A8 ARIA RADIATION ONCOLOGY Plan Name Pelvis& inguinals_PT V50 ARIA RADIATION ONCOLOGY Plan Fractions Treated to Date 19 ARIA RADIATION ONCOLOGY Plan Total Fractions Prescribed 25 ARIA RADIATION ONCOLOGY Plan Prescribed Dose Per Fraction 2 Gy ARIA RADIATION ONCOLOGY Plan Total Prescribed Dose 5,000 CGy ARIA RADIATION ONCOLOGY Plan Primary Reference Point Pelvis ARIA RADIATION ONCOLOGY 04/16/2025 2:14 PM EDT Physician Radiation Oncology RADIATION [...] documented as of this encounter Care Teams Teacher Lip Reading Relationship Specialty Start Date End Date Comfort Siddiqi APRN [address] [place] [address] PCP - General 03/12/25 Km Wooten MD [address] [place] [address] Consulting Physician Radiation Oncology 02/14/25 documented as of this encounter
--- OUTSIDE RECORDS SUMMARY | 2025-04-18 08:52 | XMS_ITS | Encounter Summary ---
Author Organization [facility] Address [address] [place] [address] Care Team Providers Care Stone Trimmer Name Role Phone Tejal Saeed APRN Primary Care Provider [phone] Km Wooten MD Unavailable [phone] Reason for Referral * Consultation (Urgent) - Closed Specialty Diagnoses / Procedures Referred By Contwagner maria Referred To Contact Urology Diagnoses Elevated PSA Km Wooten MD [address] [place] [address] Phone: tel: fax: [place] [facility] [address] [place] [address] Phone: tel: fax: Referral ID Status Reason Start Date Expiration Date V isits Requested Visits Authorized [id number] Closed Specialty Services Required 02/18/2025 08/20/2026 1 1 Scheduling Instructions History of elevated PSA of 8.7, concern for ? Prostate cancer in a gentleman with newly diagnosed rectal cancer Encounter Details Date Type Department Care Team (Late st Contact Info) Description 02/18/2025 Orders Only [facility] Radiation [address] [id number] [place] [phone] Km Wooten MD [address] [place] [address] Elevated PSA (Primary Dx) Social History Tobacco [...] Appointment [facility] Radiation [address] [address] 04/19/2025 2:10 PM EDT Appointment [facility] Radiation [address] [address] 04/22/2025 2:10 PM EDT Appointment [facility] Radiation [address] [address] 04/23/2025 2:10 PM EDT Appointment [facility] Radiation [address] [address] 04/24/2025 2:10 PM EDT Appointment [facility] Radiation [address] [address] Scheduled Referrals Name Type Priority Associated Diagnoses [...] as of this encounter Care Teams Stone Trimmer Relationship Specialty Start Date End Date Tejal Saeed APRN [address] [place] [address] PCP - General 11/07/20 03/11/25 Km Wooten MD [address] [address] Consulting Physician Radiation Oncology 02/14/25 documented as of this encounter
--- OUTSIDE RECORDS SUMMARY | 2025-04-18 08:52 | XMS_ITS | Encounter Summary ---
Author Organization [facility] Address [address] [place] [id number] Care Team Providers Care Safe Deposit Attendant Name Role Phone Tejal Saeed APRN Primary Care Provider [phone] Km Wooten MD Unavailable [phone] Encounter Details Date Type Department Care [...] Appointment [facility] Rad[facility] [address] [id number] [place] [address] 04/19/2025 2:10 PM EDT Appointment [facility] [address] [id number] [place] [address] 04/22/2025 2:10 PM EDT Appointment [facility] [address] [id number] [place] [address] 04/23/2025 2:10 PM EDT Appointment [facility] [address] [address] 04/24/2025 2:10 PM EDT Appointment [facility] [address] [phone] documented as of this encounter Visit Diagnoses [...] documented as of this encounter Care Teams Safe Deposit Attendant Relationship Specialty Start Date End Date Tejal Saeed APRN [address] [place] [address] PCP - General 11/07/20 03/11/25 Km Wooten MD [address] [facility] C[address] [place] [address] Consulting Physician Radiation Oncology 02/14/25 documented as of this encounter
--- OUTSIDE RECORDS SUMMARY | 2025-04-18 08:52 | XMS_ITS | Encounter Summary ---
Author Organization [facility] Address [address] [place] [address] Care Team Providers Care Injection Mold Tooling Technician Name Role Phone Tejal Saeed APRN Primary Care Provider [phone] Km Wooten MD Unavailable [phone] Encounter Details Date Type Department Care [...] Appointment [facility] Rad[facility] [address] NP[address]T [place] [address] 04/19/2025 2:10 PM EDT Appointment [facility] Radiation [address] VM027Y [place] [address] 04/22/2025 2:10 PM EDT Appointment [facility] Radiation [address] [id number] [place] [address] 04/23/2025 2:10 PM EDT Appointment [facility] [address] [id number] [place] [address] 04/24/2025 2:10 PM EDT Appointment [facility] [address] [address] documented as of this encounter [...] documented as of this encounter Care Teams Injection Mold Tooling Technician Relationship Specialty Start Date End Date Tejal Saeed APRN [address] [place] [address] PCP - General 11/07/20 03/11/25 Km Wooten MD [address] [place] [address] Consulting Physician Radiation Oncology 02/14/25 documented as of this encounter
--- OUTSIDE RECORDS SUMMARY | 2025-04-18 08:52 | XMS_ITS | Clinical Summary ---
Author Organization [facility] Address [address] [place] [address] Care Team Providers Care Director Clinical Pharmacology Name Role Phone Km Wooten MD Unavailable [phone] Comfort Siddiqi APRN Primary Care Provider [phone] Allergies No known active allergies Medications atorvastatin [...] Encounters Date Type Department Care Team Description 04/17/2025 1:52 PM EDT Hospital Encounter [facility] [address] [phone] 04/17/2025 Orders Only [facility] [address] Radiation Oncology, PhysicianMD 04/16/2025 1:28 PM EDT Hospital Encounter [facility] [address] [phone] 04/16/2025 Orders Only [facility] [address] [phone] Radiation Oncology, PhysicianMD 04/15/2025 1:27 PM EDT Hospital Encounter [facility] [address] 04/15/2025 8:33 AM EDT Hospital Encounter [facility] [address] Arrived 04/15/2025 Orders Only [facility]iation [address] Radiation Oncology, PhysicianMD 04/15/2025 Travel 04/12/2025 1:42 PM EDT Hospital Encounter [facility] [address] 04/12/2025 Orders Only [facility] [address] [address] Radiation Oncology, PhysicianMD 04/11/2025 1:50 PM EDT Hospital Encounter [facility] [address] [place] [phone] Km Wooten MD Malignant neoplasm of rectum (CMS/HCC) (Primary Dx) 04/11/2025 1:31 PM EDT Hospital Encounter [facility] [address] [address] 04/11/2025 Orders Only [facility] [address] [address] Radiation Oncology, PhysicianMD 04/10/2025 1:31 PM EDT - 04/10/2025 11:59 PM EDT Hospital Encounter [facility] [address] [phone] Discharge Disposition: Still a Patient 04/10/2025 Orders Only [facility] [address] [phone] Radiation Oncology, PhysicianMD 04/09/2025 1:45 PM EDT - 04/09/2025 11:59 PM EDT Hospital Encounter [facility] [address] [phone] Discharge Disposition: Still a Patient 04/09/2025 Orders Only [facility] [address] [phone] Radiation Oncology, PhysicianMD 04/08/2025 1:38 PM EDT - 04/08/2025 11:59 PM EDT Hospital Encounter [facility] [address] [phone] Discharge Disposition: Still a Patient 04/08/2025 5:30 AM EDT - 04/08/2025 1:37 PM EDT Hospital Encounter [facility] [address] [phone] Discharge Disposition: Still a Patient 04/08/2025 Orders Only [facility] Radiation [address] [address] Radiation Oncology, PhysicianMD 04/08/2025 Travel 04/05/2025 2:06 PM EDT - 04/05/2025 11:59 PM EDT Hospital Encounter [facility] [address] [phone] Discharge Disposition: Still a Patient 04/05/2025 Orders Only [facility] [address] [phone] Radiation Oncology, PhysicianMD 04/04/2025 1:53 PM EDT - 04/04/2025 11:59 PM EDT Hospital Encounter [facility] [address] [phone] Nancy Stanley MD Malignant neoplasm of rectum (CMS/HCC) (Primary Dx) Discharge Disposition: Still a Patient 04/04/2025 1:47 PM EDT - 04/04/2025 1:52 PM EDT Hospital Encounter [facility] [address] [phone] Discharge Disposition: Still a Patient 04/04/2025 Orders Only [facility]iation [address] [phone] Radiation Oncology, PhysicianMD 04/03/2025 1:29 PM EDT - 04/03/2025 11:59 PM EDT Hospital Encounter [facility] [address] [phone] Discharge Disposition: Still a Patient 04/03/2025 Orders Only [facility] Radiation [address] [phone] Radiation Oncology, PhysicianMD 04/02/2025 1:58 PM EDT - 04/02/2025 11:59 PM EDT Hospital Encounter [facility] [address] [phone] Discharge Disposition: Still a Patient 04/02/2025 Orders Only [facility] Radiation [address] [address] Radiation Oncology, PhysicianMD 04/01/2025 1:41 PM EDT - 04/01/2025 11:59 PM EDT Hospital Encounter [facility] [address] [address] Discharge Disposition: Still a Patient 04/01/2025 5:30 AM EDT - 04/01/2025 1:40 PM EDT Hospital Encounter [facility] [address] [phone] Discharge Disposition: Still a Patient 04/01/2025 Orders Only [facility]iation [address] [phone] Radiation Oncology, PhysicianMD 04/01/2025 Travel 03/29/2025 1:25 PM EDT - 03/29/2025 11:59 PM EDT Hospital Encounter [facility] [address] [phone] Discharge Disposition: Still a Patient 03/29/2025 Orders Only [facility] [address] [phone] Radiation Oncology, PhysicianMD 03/28/2025 1:54 PM EDT - 03/28/2025 11:59 PM EDT Hospital Encounter [facility] [address] [phone] Km Wooten MD Malignant neoplasm of rectum (CMS/HCC) (Primary Dx) Discharge Disposition: Still a Patient 03/28/2025 1:37 PM EDT - 03/28/2025 1:53 PM EDT Hospital Encounter [facility] [address] [phone] Discharge Disposition: Still a Patient 03/28/2025 Orders Only [facility]iation [address] [phone] Radiation Oncology, PhysicianMD 03/27/2025 1:38 PM EDT - 03/27/2025 11:59 PM EDT Hospital Encounter [facility]iation [address] [phone] Discharge Disposition: Still a Patient 03/27/2025 Orders Only [facility] Radiation [address] [phone] Radiation Oncology, PhysicianMD 03/26/2025 1:30 PM EDT - 03/26/2025 11:59 PM EDT Hospital Encounter [facility] Radiation [address] [phone] Discharge Disposition: Still a Patient 03/26/2025 Orders Only [facility] Radiation [address] [phone] Radiation Oncology, PhysicianMD 03/25/2025 1:35 PM EDT - 03/25/2025 11:59 PM EDT Hospital Encounter [facility] [address] [phone] Discharge Disposition: Still a Patient 03/25/2025 5:30 AM EDT - 03/25/2025 1:34 PM EDT Hospital Encounter [facility] [address] [phone] Discharge Disposition: Still a Patient 03/25/2025 Orders Only [facility] Radiation [address] [phone] Radiation Oncology, Physician, 03/25/2025 Travel 03/22/2025 1:49 PM EDT - 03/22/2025 11:59 PM EDT Hospital Encounter [facility] [address] [phone] Discharge Disposition: Still a Patient 03/22/2025 Orders Only [facility] Radiation [address] [phone] Radiation Oncology, Physician, 03/21/2025 2:12 PM EDT - 03/21/2025 11:59 PM EDT Hospital Encounter [facility] [address] [phone] Km Wooten MD Malignant neoplasm of rectum (CMS/HCC) (Primary Dx) Discharge Disposition: Still a Patient 03/21/2025 1:48 PM EDT - 03/21/2025 2:11 PM EDT Hospital Encounter [facility] [address] [phone] Km Wooten MD Discharge Disposition: Still a Patient 03/21/2025 Travel 03/21/2025 Orders Only [facility] Radiation [address] [phone] Radiation Oncology, Physician, 03/20/2025 Travel 03/18/2025 8:34 AM EDT - 03/18/2025 11:59 PM EDT Hospital Encounter [facility] [address] [phone] Discharge Disposition: Still a Patient 03/18/2025 Travel 03/15/2025 9:00 AM EDT Office Visit [facility] Res[facility] [address] [place] [address] Deepak Haider MD Malignant neoplasm of rectum (CMS/HCC) (Primary Dx) 03/15/2025 Travel 03/12/2025 10:12 AM EDT Anesthesia Event [facility] Endoscopy [address] [place] [address] Shaun Hanley MD 03/12/2025 9:12 AM EDT - 03/12/2025 11:59 PM EDT Hospital Encounter [facility] Endoscopy [address] [place] [address] Eric Tellez MD Lung nodule Discharge Disposition: Home or Self Care 03/12/2025 Travel 03/11/2025 5:00 PM EDT - 03/11/2025 11:59 PM EDT Hospital Encounter [facility] Radiation [address] [address] Discharge Disposition: Still a Patient 03/11/2025 Travel 03/04/2025 8:42 AM EDT - 03/04/2025 11:59 PM EDT Hospital Encounter [facility] Radiation [address] [address] Discharge Disposition: Still a Patient 03/04/2025 Travel 03/01/2025 8:40 AM EDT - 03/01/2025 11:59 PM EDT Hospital Encounter [facility] Radiation [address] [address] Km Wooten MD Discharge Disposition: Still a Patient 02/28/2025 3:30 PM EDT Office Visit [facility] Head[facility] Neck [facility] Respiratory [address] [facility], [address] [place] [address] Eric Tellez MD Adenopathy (Primary Dx) 02/28/2025 Travel 02/26/2025 Telephone [facility] Urology [address], [address] [place] [address] Perlita Her RN 02/26/2025 Travel 02/25/2025 11:50 AM EDT - 02/25/2025 11:59 PM EDT Hospital Encounter [facility] Radiation [address] [address] Discharge Disposition: Still a Patient 02/21/2025 Telephone [facility] Head[facility] Neck & Respiratory [address] [facility] [place] [address] Eric Tellez MD 02/20/2025 Telephone [facility]rology [address], [facility] [place] [address] JuliOmairaSusi L 02/20/2025 Telephone [facility]rology [address], [facility] [place] [address] JeanbrunoOmairaSusi L 2025 2:44 PM EDT - 2025 11:59 PM EDT Hospital Encounter [facility] Radiation [address] [phone] Km Wooten MD Malignant neoplasm of rectum (CMS/HCC) (Primary Dx) Discharge Disposition: Still a Patient 2025 Travel 02/18/2025 Orders Only [facility] Radiation [address] [phone] Km Wooten MD Elevated PSA (Primary Dx) 02/14/2025 Orders Only [facility] [address] [place] [address] Con Sumner MD 02/14/2025 Telephone [facility] Radiation [address] [phone] Km Wooten MD 02/14/2025 Orders Only [facility] [address] [place] [address] Con Sumner MD Malignant neoplasm of rectum (CMS/HCC) (Primary Dx) 02/11/2025 4:34 PM EDT - 02/11/2025 11:59 PM EDT Hospital Encounter [facility] Radiology [address] [place] [address] Malignant neoplasm of rectum (CMS/HCC) Discharge Disposition: Home or Self Care 02/11/2025 3:04 PM EDT - 02/11/2025 4:33 PM EDT Hospital Encounter [facility] Radiology [address] [place] [address] Malignant neoplasm of rectum (CMS/HCC) Discharge Disposition: Home or Self Care 02/11/2025 Travel 02/08/2025 Lab Requisition [facility] [address] [place] [phone] Con Sumner MD Hemorrhage of anus and rectum 02/05/2025 11:00 AM EDT Office Visit [facility] Multidisciplinary Oncology Clinic [address] [place] [address] Con Sumner MD Malignant neoplasm of rectum (CMS/HCC) (Primary Dx) 02/05/2025 Travel from Last 3 Months Family History Medical [...] 4.3 oz) 04/11/2025 1:53 PM EDT Height 167.6 cm (5' 6 ) 03/12/2025 9:47 AM EDT Body Mass Index 43.95 03/12/2025 9:47 AM EDT Plan of Treatment Upcoming Encounters Date Type Department Care Team (Late st Contact Info) Description 04/18/2025 2:10 PM EDT Appointment [facility] Radiation [address] [phone] 04/19/2025 2:10 PM EDT Appointment [facility] Radiation [address] [address] 04/22/2025 2:10 PM EDT Appointment [facility] Radiation [address] [phone] 04/23/2025 2:10 PM EDT Appointment [facility] Radiation [address] [address] 04/24/2025 2:10 PM EDT Appointment [facility] Radiation [address] [address] Health Maintenance Due Date Last Done Comments [...] 02/20/2016 Sigmoidoscopy 02/20/2016 [facility]-Colorectal Cancer Screening 02/20/2016 SUR-PHUNA-02 Vaccine ( - season) 2025 06/24/2021, 11/08/2020, 10/11/2020 [facility]-Influenza [...] SESSION SUMMARY Routine 04/17/2025 2:14 PM EDT RAD ONC ARIA SESSION SUMMARY Routine 04/16/2025 2:14 PM EDT RAD ONC ARIA SESSION SUMMARY Routine 04/15/2025 1:44 PM EDT RAD ONC ARIA SESSION SUMMARY Routine 04/12/2025 2:21 PM EDT RAD ONC ARIA SESSION SUMMARY Routine 04/11/2025 1:50 PM EDT RAD ONC ARIA SESSION SUMMARY Routine 04/10/2025 1:44 PM EDT RAD ONC ARIA SESSION SUMMARY Routine 04/09/2025 [...] ANESTHESIA PLACEHOLDER Routine 03/12/2025 10:22 AM EDT ID AN ELECTIVE ENDOTRACHEAL AIRWAY Routine 03/12/2025 10:22 [...] AM EDT Malignant neoplasm of rectum (CMS/HCC) from Last 3 Months Results * Rad [...] ONCOLOGY Reference Point Dosage Given to Date 39.9553728 Gy ARIA RADIATION ONCOLOGY Reference Point Session Dosage Given 1.34094461 Gy ARIA RADIATION ONCOLOGY Plan ID [id number] [...] 04/17/2025 2:14 PM EDT Physician Radiation Oncology MD RADIATION ONCOLO GY ORDERABLES Final Result ARIA RADIATION ONCOLOGY * Rad Onc Aria Session Summary (04/16/2025 [...] ONCOLOGY Reference Point Dosage Given to Date 37.56239705 Gy ARIA RADIATION ONCOLOGY Reference Point Session Dosage Given 1.33507559 Gy ARIA RADIATION ONCOLOGY Plan ID [id number] [...] ONCOLOGY * Rad Onc Aria Session Summary (04/15/2025 [...] ONCOLOGY Reference Point Dosage Given to Date 35.33032191 Gy ARIA RADIATION ONCOLOGY Reference Point Session Dosage Given 1.00513240 Gy ARIA RADIATION ONCOLOGY Plan ID [id number] [...] ONCOLOGY * Rad Onc Aria Session Summary (04/12/2025 [...] ONCOLOGY Reference Point Dosage Given to Date 33.50314027 Gy ARIA RADIATION ONCOLOGY Reference Point Session Dosage Given 1.50188303 Gy ARIA RADIATION ONCOLOGY Plan ID [id number] [...] ONCOLOGY * Rad Onc Aria Session Summary (04/11/2025 [...] ONCOLOGY Reference Point Dosage Given to Date 31.19768397 Gy ARIA RADIATION ONCOLOGY Reference Point Session Dosage Given 1.18898312 Gy ARIA RADIATION ONCOLOGY Plan ID [id number] [...] ONCOLOGY * Rad Onc Aria Session Summary (04/10/2025 [...] ONCOLOGY Reference Point Dosage Given to Date 29.14175409 Gy ARIA RADIATION ONCOLOGY Reference Point Session Dosage Given 1.25035312 Gy ARIA RADIATION ONCOLOGY Plan ID [id number] [...] Oncology RADIATION ONCOLO GY ORDERABLES Final Result ERICKA RADIATION ONCOLOGY * Rad Onc Aria Session Summary (04/09/2025 [...] ONCOLOGY Reference Point Dosage Given to Date 27.54198118 Gy ARIA RADIATION ONCOLOGY Reference Point Session Dosage Given 1.66444046 Gy ARIA RADIATION ONCOLOGY Plan ID [id number] [...] ONCOLOGY Reference Point Dosage Given to Date 25.22453936 Gy ARIA RADIATION ONCOLOGY Reference Point Session Dosage Given 1.82918931 Gy ARIA RADIATION ONCOLOGY Plan ID [id number] [...] 04/08/2025 2:04 PM EDT Physician Radiation Oncology RADIATION ONCOLO [...] ONCOLOGY Reference Point Dosage Given to Date 23.93636853 Gy ARIA RADIATION ONCOLOGY Reference Point Session Dosage Given 1.52241031 Gy ARIA RADIATION ONCOLOGY Plan ID A1A8 [...] 2:21 PM EDT Physician Radiation Oncology RADIATION ONCLUZ [...] ONCOLOGY Reference Point Dosage Given to Date 21.77534696 Gy ARIA RADIATION ONCOLOGY Reference Point Session Dosage Given 1.04873225 Gy ARIA RADIATION ONCOLOGY Plan ID A1A8 [...] ONCOLOGY Reference Point Dosage Given to Date 19.9815188 Gy ARIA RADIATION ONCOLOGY Reference Point Session Dosage Given 1.85833804 Gy ARIA RADIATION ONCOLOGY Plan ID A1A8 [...] ONCOLOGY Reference Point Dosage Given to Date 17.78879693 Gy ARIA RADIATION ONCOLOGY Reference Point Session Dosage Given 1.10364429 Gy ARIA RADIATION ONCOLOGY Plan ID A1A8 [...] ONCOLOGY Reference Point Dosage Given to Date 15.16345491 Gy ARIA RADIATION ONCOLOGY Reference Point Session Dosage Given 1.98268931 Gy ARIA RADIATION ONCOLOGY Plan ID A1A8 [...] ARIA RADIATION ONCOLOGY 04/01/2025 2:13 PM EDT us Physician Radiation Oncology RADIATION [...] ONCOLOGY Reference Point Dosage Given to Date 13.34928157 Gy ARIA RADIATION ONCOLOGY Reference Point Session Dosage Given 1.03480859 Gy ARIA RADIATION ONCOLOGY Plan ID A1A8 [...] ONCOLOGY Reference Point Dosage Given to Date 11.86968218 Gy ARIA RADIATION ONCOLOGY Reference Point Session Dosage Given 1.28698605 Gy ARIA RADIATION ONCOLOGY Plan ID A1A8 [...] ONCOLOGY Reference Point Dosage Given to Date 9.35121628 Gy ARIA RADIATION ONCOLOGY Reference Point Session Dosage Given 1.90797518 Gy ARIA RADIATION ONCOLOGY Plan ID A1A8 [...] ONCOLOGY Reference Point Dosage Given to Date 7.86877050 Gy ARIA RADIATION ONCOLOGY Reference Point Session Dosage Given 1.13498427 Gy ARIA RADIATION ONCOLOGY Plan ID A1A8 [...] ONCOLOGY Reference Point Dosage Given to Date 5.44174647 Gy ARIA RADIATION ONCOLOGY Reference Point Session Dosage Given 1.79159813 Gy ARIA RADIATION ONCOLOGY Plan ID A1A8 [...] ONCOLOGY Reference Point Dosage Given to Date 3.13426499 Gy ARIA RADIATION ONCOLOGY Reference Point Session Dosage Given 1.73280927 Gy ARIA RADIATION ONCOLOGY Plan ID A1A8 [...] 03/22/2025 2:22 PM EDT Physician Radiation Oncology MD RADIATION [...] ONCOLOGY Reference Point Dosage Given to Date 1.35746363 Gy ARIA RADIATION ONCOLOGY Reference Point Session Dosage Given 1.59123321 Gy ARIA RADIATION ONCOLOGY Plan ID A1A8 ARIA RADIATION ONCOLOGY Plan Name Pelvis& inguinals_PT V50 ARIA RADIATION ONCOLOGY Plan Fractions Treated to Date 1 ARIA RADIATION ONCOLOGY Plan Total Fractions Prescribed 25 ARIA RADIATION ONCOLOGY Plan Prescribed Dose Per Fraction 2 Gy ARIA RADIATION ONCOLOGY Plan Total Prescribed Dose 5,000 CGy ARIA RADIATION ONCOLOGY Plan Primary Reference Point Pelvis [facility] RADIATION ONCOLOGY 03/21/2025 2:11 PM EDT Physician Radiation Oncology MD RADIATION ONCOLO GY ORDERABLES Final Result [facility] RADIATION ONCOLOGY * Fungal Culture, Tissue and PARMINDER (03/12/2025 12:37 PM EDT) Culture Reading Mycological 4 Weeks No Fungal Growth at 4 Weeks 04/09/2025 6:[address] [facility] PARMINDER No fungal elements seen 04/09/2025 6:[address] [facility] Fine Needle Aspirate Structure of lymph node / Unknown Non-blood Collection / Unknown 03/12/2025 12:37 PM EDT 03/12/2025 12:46 PM EDT Eric Tellez MD LAB MICROBIOLOGY - GENERAL OR DERABLES Final Result [facility] [address] [place] [address] * Tissue Culture and Gram Stain (03/12/2025 12:37 PM EDT) Culture No growth at day 4 2024 2:[address] [facility] Gram Stain Result No organisms seen 03/16/2025 2:[address] [facility] Gram Stain Result No polymorphonuclear leukocytes seen 03/16/2025 2:[address] [facility] Fine Needle Aspirate Structure of lymph node / Unknown Non-blood Collection / Unknown 03/12/2025 12:37 PM EDT 03/12/2025 12:46 PM EDT Eric Tellez MD LAB MICROBIOLOGY - GENERAL OR DERABLES Final Result [facility] [address] [place] [address] * (ABNORMAL) Anaerobic Culture (03/12/2025 12:37 PM EDT) Culture No anaerobes isolated 03/16/2025 4:[address] [facility] Culture Streptococcus mitis/oralis group(A) 03/16/2025 4:[address] [facility] Comment: This isolate has been identified using the FDA Approved Flywheelyper CA System The organism value for this [...] MICROBIOLOGY - GENERAL OR DERABLES Final Result [facility] [address] [place] [address] * Bronchoscopy w EBUS (03/12/2025 11:25 AM [...] Nodes observed under convex ultrasound guidance. Onsite nursing associate was present and cytology results were preliminarily [...] 11:10 AM Staff Staff Role Nel Mccoy, SUHAS Endo Nurse Carmen Zelaya Endo Associate Director Financial Aid Palma Marin HYDROTREATER OPERATOR HYDROTREATER OPERATOR Eric Tellez MD Proceduralist Shaun Hanley MD Anesthesiologist Impression Overall Impression: Normal endobronchial exam The three lymph nodes sampled today on [address] were benign Post Procedure Diagnosis None Recommendation Follow-up: with referring provider Attestation I was present for the entire procedure Billing Codes See procedure report details above. 79236 - EBUS convex prove 1 or 2 lesions GC - Service has been performed in part by a resident/fellow under the direction of a teaching physician Eric Tellez MD GI PROCEDURE ORDERABLES Final Result * Fine needle aspiration (03/12/2025 10:43 AM EDT) Case Report Cytology Case: [id number] Authorizing Provider: Eric Tellez MD Collected: 03/12/2025 1043 Ordering Location: [facility] Endoscopy Received: 03/12/2025 1129 Pathologist: Nicole [...] GUIDED FINE NEEDLE ASPIRATION 12:59 PM EDT [facility] Final Diagnosis A. LYMPH NODE, STATION 7, ENDOBRONCHIAL ULTRASOUND-GUIDED FINE NEEDLE ASPIRATION: NO EVIDENCE OF MALIGNANCY, HEMODILUTE LYMPHOID TISSUE. B. LYMPH NODE, 4 RIGHT, ENDOBRONCHIAL ULTRASOUND-GUIDED FINE NEEDLE ASPIRATION: NO EVIDENCE OF MALIGNANCY, HEMODILUTE LYMPHOID TISSUE. C. LYMPH NODE, 11 RIGHT, ENDOBRONCHIAL ULTRASOUND-GUIDED FINE NEEDLE ASPIRATION: NO EVIDENCE OF MALIGNANCY, HEMODILUTE LYMPHOID TISSUE. 12:59 PM EDT [facility] at 1259 EDT Comment The possibility of rare poorly-formed granulomas is not excluded, especially in the station 7 lymph node sample. For this reason, GMS and AFB stains are performed. These are negative for organisms. 12:59 PM EDT [facility] Special and Immunohistochemical Stains Special Stain: A1-2 Acid Fast Bacteria A1-3 GMS IHC: There are no tasks to display for the given criteria. All controls show appropriate reactivity. All immunohistochemis try, in situ hybridization, and histochemical tests were developed by and are performed at the [facility], [address] [place] [address]. All tests reported here, except those addressing [...] negativity on decalcified specimens. 12:59 PM EDT [facility] Immediate Evaluation A. FNA performed by: Dr. Tellez Number of sticks: 6 Immediate evaluation performed by: Dr. Mccoy/LT/SP Evaluation episode # 1-3: Very hemodilute lymphoid tissue. B. FNA performed by: Dr. Tellez Number of sticks: 6 Immediate evaluation performed by: Dr. Mccoy/LT/SP Evaluation episode # 1-4: Very hemodilute lymphoid tissue. C. FNA performed by: Dr. Tellez Number of sticks: 4 Immediate evaluation performed by: Dr. Mccoy//SP Evaluation episode # 1-2: Broncs and very hemodilute lymphoid tissue. 3-4: Hemodilute lymphoid tissue. The immediate evaluation in this case was performed via telecytology by the attending physician listed above. 5 12:[address] [facility] Gross Description A. LYMPH NODE, [...] Time: 1h 31m 5 12:[address] [facility] Note: A resident was involved in the service. I attest I examined the relevant preparations for the specimens and confirmed the diagnosis or interpretation. 5 12:[address] [facility] Clinical Information R91.1 - Lung nodule [ICD-10-CM] 5 12:[address] [facility] Fine Needle Aspirate Structure of [...] Tellez MD LAB CYTOLOGY ORDERABLES Final Result [facility] [address] [place] [address] * ID AN ELECTIVE ENDOTRACHEAL AIRWAY, PB ANESTHESIA PLACEHOLDER (03/12/2025 10:22 AM EDT) Narrative Palma Marin CRNA - 03/12/2025 10:22 AM EDT Palma Marin CRNA 03/12/2025 10:32 AM Airway Date/Time: 03/12/2025 10:22 AM Reason: elective Airway not difficult General Information and Staff Patient location during procedure: OR HYDROTREATER OPERATOR: Palma Marin CRNA Performed: TEDDY Patient [...] Additional Comments Atraumatic. No change to dentition. Shaun Hanley MD ANESTHESIA ORDERABLES Fin al [...] EDT) Case Report Sugical Pathology Consult Case: [id number] Authorizing Provider: Con Sumner MD Collected: 02/08/20251104 Ordering Location: [facility] Lab Received: 02/08/2025 110 Pathologist: Luis Weiner DO Specimen: Colon, [id number] 02/10/2025 12:09 PM EDT [facility] Final Diagnosis DESIGNATED COLON, RECTUM; MASS, BIOPSY (OUTSIDE SLIDES; [id number]; 02/05/2025): - MODERATELY DIFFERENTIATED ADENOCARCINOMA (SEE COMMENT). - MMR BY IHC (PER REPORT): - RETAINED NUCLEAR EXPRESSION OF ALL FOUR PROTEINS (MLH1, PMS2, MSH2 AND MSH6). 02/10/2025 12:[address] [facility] at 1209 EDT Comment Correlation with endoscopic findings and imaging is recommended to determine site of tumor (colon vs rectum) given specimen designation. 02/10/2025 12:[address] [facility] Clinical Information K62.5 - Hemorrhage of anus and rectum [ICD-10-CM] 02/10/2025 12:[address] [facility] Gross Description A. [id number] Received along with a corresponding pathology report from [facility] are 5 slide(s) labeled outside case: [id number] collected on 01/31/2025. 02/10/2025 12:[address] [facility] Note: A resident was involved in the service. I attest I examined the relevant preparations for the specimens and confirmed the diagnosis or interpretation. 02/10/2025 12:[address] [facility] Tissue Colon structure / Unknown 02/08/2025 11:05 AM EDT 02/08/2025 11:05 AM EDT Con Sumner MD LAB PATHOLOGY ORDERABLES Final Result Performing Organization Address City/[facility]/ZIP Co de Phone Number [facility] [address] [place] [address] * CEA (02/05/2025 11:54 AM EDT) CEA, Serum <1.8 <4.0 ng/mL 02/05/2025 1:[address] [facility] Blood Venous blood specimen / Unknown Venipuncture / Unknown 02/05/2025 11:54 AM EDT 02/05/2025 12:[address] [facility] - 02/05/2025 1:23 PM EDT Normal range for smokers: < 5.5 ng/ml Normal range for non-smokers: <=4.0 ng/ml Performed by Maged electrochemiluminescent immunoassay. Results obtained with different test methods or kits cannot be used interchangeably. Con Sumner MD LAB BLOOD ORDERABLES Final Res ult Performing Organization Address City/[facility]/ZIP Co de Phone Number [facility] [address] [place] [address] from Last 3 Months Additional Health Concerns Active Problems Noted Date Diagnosed Date Autogenerated Problem 02/28/[address] [place] [address] Care Teams Director Clinical Pharmacology Relationship Specialty Start Date End Date Comfort Siddiqi APRN [address] [place] [address] PCP - General 03/12/25 Km Wooten MD [address] [place] [address] Consulting Physician Radiation Oncology 02/14/25
--- OUTSIDE RECORDS SUMMARY | 2025-04-18 08:52 | XMS_ITS | Encounter Summary ---
Author Organization Healthcare Address [address] [place] [address] Care Team Providers Care Post Office Clerk Name Role Phone Km Wooten MD Unavailable [phone] Comfort Siddiqi APRN Primary Care Provider [phone] Encounter Details Date Type Department Care Team (Late st Contact Info) Description 04/09/2025 Orders Only [facility] [address] [id number] [place] [address] Radiation Oncology, Physician, [address] [place], [place] [id number] Social History Tobacco Use Types Packs/Day Years [...] Appointment [facility] [address] [phone] 04/19/2025 2:10 PM EDT Appointment [facility] [address] [address] 04/22/2025 2:10 PM EDT Appointment [facility] [address] [place] [phone] 04/23/2025 2:10 PM EDT Appointment [facility] [address] [phone] 04/24/2025 2:10 PM EDT Appointment [facility] [address] [phone] documented as of this encounter Goals Goal [...] ONCOLOGY Reference Point Dosage Given to Date [id number] Gy ARIA RADIATION ONCOLOGY Reference Point Session Dosage Given 1.82472767 Gy ARIA RADIATION ONCOLOGY Plan ID [email or web address] [...] 04/09/2025 2:33 PM EDT Physician Radiation Oncology RADIATION ONCOLO [...] documented as of this encounter Care Teams Post Office Clerk Relationship Specialty Start Date End Date Comfort Siddiqi APRN [address] [place] [address] PCP - General 03/12/25 Km Wooten MD [address] [place] [address] Consulting Physician Radiation Oncology 02/14/25 documented as of this encounter
--- OUTSIDE RECORDS SUMMARY | 2025-04-18 08:52 | XMS_ITS | Encounter Summary ---
Author Organization [facility] Address [address] [id number] Care Team Providers Care Health Services Director Name Role Phone Tejal Saeed APRN Primary Care Provider [phone] Km Wooten MD Unavailable [phone] Comfort Siddiqi APRN Primary Care Provider [phone] Encounter Details Date Type Department Care Team (Late st Contact Info) Description 02/08/2025 Lab Requisition [facility] [address] [place] [address] Con Sumner MD [address] [facility] [address] [place] [phone] Hemorrhage of anus and rectum Social History [...] EDT Appointment [facility] [address] [place] [address] 04/19/2025 2:10 PM EDT Appointment [facility] [address] [place] [address] 04/22/2025 2:10 PM EDT Appointment [facility] [address] [place] [address] 04/23/2025 2:10 PM EDT Appointment [facility] [address] [place] [address] 04/24/2025 2:10 PM EDT Appointment [facility] [address] [place] [address] documented as of this encounter Procedures Procedure Name Priority Date/Time Associated Diagnosis Comments SURGICAL PATHOLOGY CONSULT Routine 02/08/2025 11:05 AM EDT Hemorrhage of anus and rectum documented in this encounter Results * Surgical Pathology Consult (02/08/2025 11:05 AM EDT) Case Report Sugical Pathology Consult Case: [id number] Authorizing Provider: Con Sumner MD Collected: 02/08/20251104 Ordering Location: [facility] Lab Received: 02/08/2025 110 Pathologist: Luis Weiner DO Specimen: Colon, [id number] 02/10/2025 12:09 PM EDT [facility] Final Diagnosis DESIGNATED COLON, RECTUM; MASS, BIOPSY (OUTSIDE SLIDES; [id number]; 02/05/2025): - MODERATELY DIFFERENTIATED ADENOCARCINOMA (SEE COMMENT). - MMR BY IHC (PER REPORT): - RETAINED NUCLEAR EXPRESSION OF ALL FOUR PROTEINS (MLH1, PMS2, MSH2 AND MSH6). 02/10/2025 12:09 PM EDT [facility] at 1209 EDT Comment Correlation with endoscopic findings and imaging is recommended to determine site of tumor (colon vs rectum) given specimen designation. 02/10/2025 12:09 PM EDT [facility] Clinical Information K62.5 - Hemorrhage of anus and rectum [ICD-10-CM] 02/10/2025 12:09 PM EDT [facility] Gross Description A. [id number] Received along with a corresponding pathology report from [facility] are 5 slide(s) labeled outside case: [id number] collected on 01/31/2025. 02/10/2025 12:09 PM EDT [facility] Note: A resident was involved in the service. I attest I examined the relevant preparations for the specimens and confirmed the diagnosis or interpretation. 02/10/2025 12:09 PM EDT [facility] Tissue Colon structure / Unknown 02/08/2025 11:05 AM EDT 02/08/2025 11:05 AM EDT us Con Sumner MD LAB PATHOLOGY ORDERABLES Final Result [facility] [address] [place] [address] documented in this encounter Visit Diagnoses Diagnosis [...] as of this encounter Care Teams Health Services Director Relationship Specialty Start Date End Date Tejal Saeed APRN [facility] [place] [address] PCP - General 11/07/20 03/11/25 Comfort Siddiqi APRN [address] [place] [address] PCP - General 03/12/25 Km Wooten MD [address] [facility] [address] [place] [address] Consulting Physician Radiation Oncology 02/14/25 documented as of this encounter
--- OUTSIDE RECORDS SUMMARY | 2025-04-18 08:53 | XMS_ITS | Encounter Summary ---
Author Organization Healthcare Address [address] [place] [address] Care Team Providers Care Classroom Assistant Name Role Phone Km Wooten MD Unavailable [phone] Comfort Siddiqi APRN Primary Care Provider [phone] Encounter Details Date Type Department Care Team (Late st Contact Info) Description 03/28/2025 Orders Only [facility] [address] [id number] [place] [address] Radiation Oncology, Physician, [address] [place], [place] [phone] Social History Tobacco Use Types Packs/Day Years [...] Appointment [facility] [address] [phone] 04/19/2025 2:10 PM EDT Appointment [facility] [address] [phone] 04/22/2025 2:10 PM EDT Appointment [facility] [address] [phone] 04/23/2025 2:10 PM EDT Appointment [facility] [address] [address] 04/24/2025 2:10 PM EDT Appointment [facility] [address] [phone] documented as of this encounter Goals Goal [...] ONCOLOGY Reference Point Dosage Given to Date 11.77343732 Gy ARIA RADIATION ONCOLOGY Reference Point Session Dosage Given 1.33233614 Gy ARIA RADIATION ONCOLOGY Plan ID A1A8 [...] documented as of this encounter Care Teams Classroom Assistant Relationship Specialty Start Date End Date Comfort Siddiqi APRN [address] [place] [address] PCP - General 03/12/25 Km Wooten MD [address] [place] [address] Consulting Physician Radiation Oncology 02/14/25 documented as of this encounter
--- OUTSIDE RECORDS SUMMARY | 2025-04-18 08:53 | XMS_ITS | Encounter Summary ---
Author Organization [facility] Address [address] [place] [address] Care Team Providers Care Pst Specialist Name Role Phone Km Wooten MD Unavailable [phone] Comfort Siddiqi APRN Primary Care Provider [phone] Encounter Details Date Type Department Care Team [...] Appointment [facility] [address] [id number] [place] [address] 04/19/2025 2:10 PM EDT Appointment [facility] [address] [id number] [place] [address] 04/22/2025 2:10 PM EDT Appointment [facility] [address] VI755B [place] [address] 04/23/2025 2:10 PM EDT Appointment [facility] [address] FA726P [place] [address] 04/24/2025 2:10 PM EDT Appointment [facility] [address] [place] [address] documented as of this encounter Goals Goal [...] documented as of this encounter Care Teams Pst Specialist Relationship Specialty Start Date End Date Comfort Siddiqi APRN [address] [place] [address] PCP - General 03/12/25 Km Wooten MD 800 [facility] [address] [place] [address] Consulting Physician Radiation Oncology 02/14/25 documented as of this encounter
--- OUTSIDE RECORDS SUMMARY | 2025-04-18 08:53 | XMS_ITS | Encounter Summary ---
Author Organization Healthcare Address [address] [place] [address] Care Team Providers Care Stores Naval Name Role Phone Km Wooten MD Unavailable [phone] Comfort Siddiqi APRN Primary Care Provider [phone] Encounter Details Date Type Department Care Team (Late st Contact Info) Description 04/08/2025 Orders Only [facility] [address] [id number] [place] [address] Radiation Oncology, Physician, [address] [place], [place] [address] Social History Tobacco Use Types Packs/Day Years [...] [facility] [address] [phone] 04/19/2025 2:10 PM EDT Appointment [facility] [address] [address] 04/22/2025 2:10 PM EDT Appointment [facility] [address] [place] [phone] 04/23/2025 2:10 PM EDT Appointment [facility] [address] [phone] 04/24/2025 2:10 PM EDT Appointment [facility] [address] [phone] documented as of this encounter Goals Goal [...] ONCOLOGY Reference Point Dosage Given to Date 25.06075157 Gy ARIA RADIATION ONCOLOGY Reference Point Session Dosage Given 1.36358298 Gy ARIA RADIATION ONCOLOGY Plan ID A1A8 [...] as of this encounter Care Teams Stores Naval Relationship Specialty Start Date End Date Comfort Siddiqi APRN [address] [place] [address] PCP - General 03/12/25 Km Wooten MD [address] [place] [address] Consulting Physician Radiation Oncology 02/14/25 documented as of this encounter
--- OUTSIDE RECORDS SUMMARY | 2025-04-18 08:53 | XMS_ITS | Encounter Summary ---
Author Organization Healthcare Address [address] [place] [address] Care Team Providers Care Polymer Scientist Name Role Phone Km Wooten MD Unavailable [phone] Comfort Siddiqi APRN Primary Care Provider [phone] Encounter Details Date Type Department Care Team (Late st Contact Info) Description 04/05/2025 Orders Only [facility] [address] [id number] [place] [address] Radiation Oncology, Physician, [address] [place], [place] [address] Social History Tobacco Use Types Packs/Day Years [...] Appointment [facility] [address] [phone] 04/19/2025 2:10 PM EDT Appointment [facility] [address] [phone] 04/22/2025 2:10 PM EDT Appointment [facility] [address] [place] [phone] 04/23/2025 2:10 PM EDT Appointment [facility] [address] [phone] 04/24/2025 2:10 PM EDT Appointment [facility] [address] [phone] documented as of this encounter Goals Goal [...] ONCOLOGY Reference Point Dosage Given to Date 23.38270868 Gy ARIA RADIATION ONCOLOGY Reference Point Session Dosage Given 1.82573747 Gy ARIA RADIATION ONCOLOGY Plan ID A1A8 [...] documented as of this encounter Care Teams Polymer Scientist Relationship Specialty Start Date End Date Comfort Siddiqi APRN [address] [place] [address] PCP - General 03/12/25 Km Wooten MD [address] [place] [address] Consulting Physician Radiation Oncology 02/14/25 documented as of this encounter
--- OUTSIDE RECORDS SUMMARY | 2025-04-18 08:54 | XMS_ITS | Encounter Summary ---
Author Organization [facility] Address [address] [place] [address] Care Team Providers Care Interior Assemblies Developer Prover Name Role Phone Km Wooten MD Unavailable [phone] Comfort Siddiqi APRN Primary Care Provider [phone] Encounter Details Date Type Department Care Team [...] Appointment [facility] [address] LU[address]W [place] [address] 04/19/2025 2:10 PM EDT Appointment [facility] [address] [id number] [place] [address] 04/22/2025 2:10 PM EDT Appointment [facility] [address] LN498R [place] [address] 04/23/2025 2:10 PM EDT Appointment [facility] [address] [id number] [place] [address] 04/24/2025 2:10 PM EDT Appointment [facility] [address] OS[address] [place] [address] documented as of this encounter Goals Goal [...] documented as of this encounter Care Teams Interior Assemblies Developer Prover Relationship Specialty Start Date End Date Comfort Siddiqi APRN [address] [place] [address] PCP - General 03/12/25 Km Wooten MD 800 [facility] [address] [place] [address] Consulting Physician Radiation Oncology 02/14/25 documented as of this encounter
--- OUTSIDE RECORDS SUMMARY | 2025-04-18 08:54 | XMS_ITS | Encounter Summary ---
Author Organization Healthcare Address [address] [place] [address] Care Team Providers Care Park Guard Name Role Phone Km Wooten MD Unavailable [phone] Comfort Siddiqi APRN Primary Care Provider [phone] Encounter Details Date Type Department Care Team (Late st Contact Info) Description 04/03/2025 Orders Only [facility] [address] [id number] [place] [address] Radiation Oncology, Physician, [address] [place], [place] [phone] Social History Tobacco Use Types Packs/Day Years [...] [facility] [address] [phone] 04/19/2025 2:10 PM EDT Appointment [facility] [address] [phone] 04/22/2025 2:10 PM EDT Appointment [facility] [address] [place] [phone] 04/23/2025 2:10 PM EDT Appointment [facility] [address] [address] 04/24/2025 2:10 PM EDT Appointment [facility] [address] [phone] documented as of this encounter Goals Goal [...] ONCOLOGY Reference Point Dosage Given to Date 19.4792278 Gy ARIA RADIATION ONCOLOGY Reference Point Session Dosage Given 1.43877608 Gy ARIA RADIATION ONCOLOGY Plan ID A1A8 [...] documented as of this encounter Care Teams Park Guard Relationship Specialty Start Date End Date Comfort Siddiqi APRN [address] [place] [address] PCP - General 03/12/25 Km Wooten MD [address] [place] [address] Consulting Physician Radiation Oncology 02/14/25 documented as of this encounter
--- OUTSIDE RECORDS SUMMARY | 2025-04-18 08:54 | XMS_ITS | Encounter Summary ---
Author Organization Healthcare Address [address] [place] [address] Care Team Providers Care Cutting Machine Fixer Name Role Phone Km Wooten MD Unavailable [phone] Comfort Siddiqi APRN Primary Care Provider [phone] Encounter Details Date Type Department Care Team (Late st Contact Info) Description 03/27/2025 Orders Only [facility] [address] [id number] [place] [address] Radiation Oncology, Physician, [address] [place], [place] [address] Social History Tobacco Use Types Packs/Day Years [...] Appointment [facility] [address] [phone] 04/19/2025 2:10 PM EDT Appointment [facility] [address] [address] 04/22/2025 2:10 PM EDT Appointment [facility] [address] [place] [phone] 04/23/2025 2:10 PM EDT Appointment [facility] [address] [phone] 04/24/2025 2:10 PM EDT Appointment [facility] [address] [phone] documented as of this encounter Goals Goal [...] ONCOLOGY Reference Point Dosage Given to Date 9.19699134 Gy ARIA RADIATION ONCOLOGY Reference Point Session Dosage Given 1.45115690 Gy ARIA RADIATION ONCOLOGY Plan ID A1A8 [...] documented as of this encounter Care Teams Cutting Machine Fixer Relationship Specialty Start Date End Date Comfort Siddiqi APRN [address] [place] [address] PCP - General 03/12/25 Km Wooten MD [address] [place] [address] Consulting Physician Radiation Oncology 02/14/25 documented as of this encounter
--- OUTSIDE RECORDS SUMMARY | 2025-04-18 08:54 | XMS_ITS | Encounter Summary ---
Author Organization Healthcare Address [address] [place] [address] Care Team Providers Care Ex Chef Name Role Phone Km Wooten MD Unavailable [phone] Comfort Siddiqi APRN Primary Care Provider [phone] Encounter Details Date Type Department Care Team (Late st Contact Info) Description 04/04/2025 Orders Only [facility] [address] [id number] [place] [address] Radiation Oncology, Physician, [address] [place], [place] [address] Social History Tobacco Use Types Packs/Day Years [...] [facility] [address] [phone] 04/19/2025 2:10 PM EDT Appointment [facility] [address] [address] 04/22/2025 2:10 PM EDT Appointment [facility] [address] [place] [phone] 04/23/2025 2:10 PM EDT Appointment [facility] [address] 04/24/2025 2:10 PM EDT Appointment [facility] [address] [phone] documented as of this encounter Goals Goal [...] ONCOLOGY Reference Point Dosage Given to Date 21.83358249 Gy ARIA RADIATION ONCOLOGY Reference Point Session Dosage Given 1.31660568 Gy ARIA RADIATION ONCOLOGY Plan ID A1A8 [...] 2:31 PM EDT Physician Radiation Oncology RADIATION ONCOLO [...] documented as of this encounter Care Teams Ex Chef Relationship Specialty Start Date End Date Comfort Siddiqi APRN [address] [place] [address] PCP - General 03/12/25 Km Wooten MD [address] [place] [address] Consulting Physician Radiation Oncology 02/14/25 documented as of this encounter
--- OUTSIDE RECORDS SUMMARY | 2025-04-18 08:54 | XMS_ITS ---
Author Organization [facility] Address [address] [place] [address] Care Team Providers Care Pastor Name Role Phone Km Wooten MD Unavailable [phone] Comfort Siddiqi APRN Primary Care Provider [phone] Active Problems Problem Noted Date Diagnosed Date [...] Treatment Site Technique Goal Episode Provider 03/21/2025 04/17/2025 Bilateral Rectum Consolidative * Linked Problems Rectal cancer Treatment Courses* Course C1 03/21/2025 - 04/17/2025 Treatment Period Fraction Dose Fractions Total Dose Plans Planned Pelvis& inguinals_PTV50 [A1A8] 03/21/2025 - 04/17/2025 200 cGy 5,000 cG y Reference Points Delivered Pelvis 03/21/2025 - 04/17/2025 4,000 cGy
--- OUTSIDE RECORDS SUMMARY | 2025-04-18 08:54 | XMS_ITS | Encounter Summary ---
Author Organization Healthcare Address [address] [place] [address] Care Team Providers Care Primary Special Education Teacher Name Role Phone Km Wooten MD Unavailable [phone] Comfort Siddiqi APRN Primary Care Provider [phone] Encounter Details Date Type Department Care Team (Late st Contact Info) Description 03/26/2025 Orders Only [facility] [address] [id number] [place] [address] Radiation Oncology, Physician, [address] [place], [place] [phone] Social History Tobacco Use Types Packs/Day Years [...] Appointment [facility] [address] [phone] 04/19/2025 2:10 PM EDT Appointment [facility] [address] [phone] 04/22/2025 2:10 PM EDT Appointment [facility] [address] [phone] 04/23/2025 2:10 PM EDT Appointment [facility] [address] [phone] 04/24/2025 2:10 PM EDT Appointment [facility] [address] [phone] documented as of this encounter Goals Goal [...] ONCOLOGY Reference Point Dosage Given to Date 7.86382064 Gy ARIA RADIATION ONCOLOGY Reference Point Session Dosage Given 1.83743055 Gy ARIA RADIATION ONCOLOGY Plan ID A1A8 [...] documented as of this encounter Care Teams Primary Special Education Teacher Relationship Specialty Start Date End Date Comfort Siddiqi APRN [address] [place] [address] PCP - General 03/12/25 Km Wooten MD [address] [place] [phone] Consulting Physician Radiation Oncology 02/14/25 documented as of this encounter
--- OUTSIDE RECORDS SUMMARY | 2025-04-18 08:55 | XMS_ITS | Encounter Summary ---
Author Organization [facility] Address [address] [place] [address] Care Team Providers Care Blade Operator Name Role Phone Km Wooten MD Unavailable [phone] Comfort Siddiqi APRN Primary Care Provider [phone] Encounter Details Date Type Department Care Team [...] Appointment [facility] [address] [id number] [place] [address] 04/19/2025 2:10 PM EDT Appointment [facility] [address] AE692H [place] [address] 04/22/2025 2:10 PM EDT Appointment [facility] [address] WO302L [place] [address] 04/23/2025 2:10 PM EDT Appointment [facility] [address] EA[address] [place] [address] 04/24/2025 2:10 PM EDT Appointment [facility] [address] [id number] [place] [address] documented as of this encounter Goals Goal [...] documented as of this encounter Care Teams Blade Operator Relationship Specialty Start Date End Date Comfort Siddiqi APRN [address] [place] [address] PCP - General 03/12/25 Km Wooten MD 800 [facility] [address] [place] [address] Consulting Physician Radiation Oncology 02/14/25 documented as of this encounter
--- OUTSIDE RECORDS SUMMARY | 2025-04-18 08:55 | XMS_ITS | Encounter Summary ---
Author Organization [facility] Address [address] [place] [address] Care Team Providers Care Committee Member Name Role Phone Km Wooten MD Unavailable [phone] Comfort Siddiqi APRN Primary Care Provider [phone] Encounter Details Date Type Department Care Team [...] Appointment [facility] [address] [id number] [place] [address] 04/19/2025 2:10 PM EDT Appointment [facility] [address] [id number] [place] [address] 04/22/2025 2:10 PM EDT Appointment [facility] [address] [id number] [place] [address] 04/23/2025 2:10 PM EDT Appointment [facility] [address] [id number] [place] [address] 04/24/2025 2:10 PM EDT Appointment [facility]iation [address] [id number] [place] [address] documented as of this encounter Goals Goal Patient Goal Type Associated Problems Recent Progress Patient-Stated? Author Autogenerat ed Goal Care Plan Autogenerated Problem No PrestonaMyraparisa Thayer documented as of this encounter Visit [...] documented as of this encounter Care Teams Committee Member Relationship Specialty Start Date End Date Comfort Siddiqi APRN [address] [place] [address] PCP - General 03/12/25 Km Wooten MD 800 [facility] Buzz C114D [place] [address] Consulting Physician Radiation Oncology 02/14/25 documented as of this encounter
--- OUTSIDE RECORDS SUMMARY | 2025-04-18 08:55 | XMS_ITS | Encounter Summary ---
Author Organization [facility] Address [address] [place] [address] Care Team Providers Care Special Forces Medical Sergeant Name Role Phone Tejal Saeed APRN Primary Care Provider [phone] Km Wooten MD Unavailable [phone] Encounter Details Date Type Department Care [...] Appointment [facility] [address] [id number] [place] [address] 04/19/2025 2:10 PM EDT Appointment [facility] [address] [id number] [place] [address] 04/22/2025 2:10 PM EDT Appointment [facility] [address] [id number] [place] [address] 04/23/2025 2:10 PM EDT Appointment [facility] [address] [id number] [place] [address] 04/24/2025 2:10 PM EDT Appointment [facility] [address] [address] documented as of this encounter [...] documented as of this encounter Care Teams Special Forces Medical Sergeant Relationship Specialty Start Date End Date Tejal Saeed APRN [address] [place] [address] PCP - General 11/07/20 03/11/25 Km Wooten MD [address] [place] [address] Consulting Physician Radiation Oncology 02/14/25 documented as of this encounter
--- OUTSIDE RECORDS SUMMARY | 2025-04-18 08:55 | XMS_ITS | Encounter Summary ---
Author Organization [facility] Address [address] [place] [address] Care Team Providers Care Head Of Ict Name Role Phone Km Wooten MD Unavailable [phone] Comfort Siddiqi APRN Primary Care Provider [phone] Encounter Details Date Type Department Care Team [...] Appointment [facility] [address] [id number] [place] [address] 04/19/2025 2:10 PM EDT Appointment [facility] [address] [id number] [place] [address] 04/22/2025 2:10 PM EDT Appointment [facility] [address] [id number] [place] [address] 04/23/2025 2:10 PM EDT Appointment [facility] [address] [id number] [place] [address] 04/24/2025 2:10 PM EDT Appointment [facility] Radiation [address] [id number] [place] [address] documented as of this encounter Goals Goal [...] of this encounter Care Teams Head Of Ict Relationship Specialty Start Date End Date Comfort Siddiqi APRN [address] [place] [address] PCP - General 03/12/25 Km Wooten MD 800 [facility] Buzz C114D [place] [address] Consulting Physician Radiation Oncology 02/14/25 documented as of this encounter
--- OUTSIDE RECORDS SUMMARY | 2025-04-18 08:55 | XMS_ITS | Encounter Summary ---
Author Organization [facility] Address [address] [place] [address] Care Team Providers Care Cork Wirer Name Role Phone Km Wooten MD Unavailable [phone] Comfort Siddiqi APRN Primary Care Provider [phone] Encounter Details Date Type Department Care Team (Late st Contact Info) Description 03/22/2025 Orders Only [facility] [address] [id number] [place] [address] Radiation Oncology, Physician, [address] [place], [place] [id number] Social History Tobacco Use Types Packs/Day Years [...] [facility] [address] [address] 04/19/2025 2:10 PM EDT Appointment [facility] [address] [address] 04/22/2025 2:10 PM EDT Appointment [facility] [address] [place] [address] 04/23/2025 2:10 PM EDT Appointment [facility] [address] [address] 04/24/2025 2:10 PM EDT Appointment [facility] Radiation [address] [address] documented as of this encounter Goals Goal [...] ONCOLOGY Reference Point Dosage Given to Date [id number] Gy ARIA RADIATION ONCOLOGY Reference Point Session Dosage Given [id number] Gy ARIA RADIATION ONCOLOGY Plan ID [id number] [...] documented as of this encounter Care Teams Cork Wirer Relationship Specialty Start Date End Date Comfort Siddiqi APRN [address] [place] [address] PCP - General 03/12/25 Km Wooten MD [address] [place] [address] Consulting Physician Radiation Oncology 02/14/25 documented as of this encounter
--- OUTSIDE RECORDS SUMMARY | 2025-04-18 08:55 | XMS_ITS | Encounter Summary ---
Author Organization [facility] Address [address] [place] [address] Care Team Providers Care Soil Expert Name Role Phone Km Wooten MD Unavailable Comfort Siddiqi APRN Primary Care Provider [phone] Encounter Details Date Type Department Care Team (Late st Contact Info) Description 03/21/2025 Orders Only [facility] [address] [id number] [place] [address] Radiation Oncology, Physician, [address] [place], [place] [id number] Social History Tobacco Use Types Packs/Day Years [...] [facility] [address] [address] 04/19/2025 2:10 PM EDT Appointment [facility] [address] [address] 04/22/2025 2:10 PM EDT Appointment [facility] [address] [address] 04/23/2025 2:10 PM EDT Appointment [facility]iation [address] [address] 04/24/2025 2:10 PM EDT Appointment [facility] Radiation [address] [address] documented as of this encounter Goals Goal [...] ONCOLOGY Reference Point Dosage Given to Date [id number] Gy ARIA RADIATION ONCOLOGY Reference Point Session Dosage Given 1.99920572 Gy ARIA RADIATION ONCOLOGY Plan ID [id number] [...] documented as of this encounter Care Teams Soil Expert Relationship Specialty Start Date End Date Comfort Siddiqi APRN [address] [place] [address] PCP - General 03/12/25 Km Wooten MD [address] [place] [address] Consulting Physician Radiation Oncology 02/14/25 documented as of this encounter
--- OUTSIDE RECORDS SUMMARY | 2025-04-18 08:55 | XMS_ITS | Encounter Summary ---
Author Organization [facility] Address [address] [place] [address] Care Team Providers Care Consulting Actuary Name Role Phone Km Wooten MD Unavailable [phone] Comfort Siddiqi APRN Primary Care Provider [phone] Encounter Details Date Type Department Care Team [...] Appointment [facility] [address] [id number] [place] [address] 04/19/2025 2:10 PM EDT Appointment [facility] [address] [id number] [place] [address] 04/22/2025 2:10 PM EDT Appointment [facility] [address] [id number] [place] [address] 04/23/2025 2:10 PM EDT Appointment [facility] [address] [id number] [place] [address] 04/24/2025 2:10 PM EDT Appointment [facility] Radiation [address] [id number] [place] [address] documented as of this encounter Goals Goal [...] documented as of this encounter Care Teams Consulting Actuary Relationship Specialty Start Date End Date Comfort Siddiqi APRN [address] [place] [address] PCP - General 03/12/25 Km Wooten MD 800 [facility] [address] C114D [place] [address] Consulting Physician Radiation Oncology 02/14/25 documented as of this encounter
[2025-04-18 09:03] LABS: Hematocrit 40.0 % (42.0-52.0); Hemoglobin 13.3 g/dL (14.1-18.0); Immature Granulocytes % 0.8 %; Mean Corpuscular HGB Conc 33.3 g/dL (31.8-35.4); Mean Corpuscular Hemoglobin 27.8 pg (27.0-31.2); Mean Corpuscular Volume 83.5 fl (80-94); Nucleated Red Blood Cells % 0 %; Platelet Count 165 K/mm3 (142-424); Red Blood Count 4.79 M/mm3 (4.60-6.20); Red Cell Distribution Width-SD 40.2 fL; White Blood Count 3.7 K/mm3 (4.8-10.8)
[2025-04-18 09:05] LABS: Albumin Level 3.9 g/dl (3.5-5.0); Chloride 102 mmol/L (98-107); Potassium 4.2 mmoL/L (3.5-5.1); Sodium 138 mmol/L (136-145)
[2025-04-18 09:08] LABS: Alanine Aminotransferase 32 U/L (12-78); Albumin/Globulin Ratio 1.3 (1.1-1.8); Alkaline Phosphatase 77 U/L (38-126); Anion Gap 10.2 mEq/L (5-15); Aspartate Amino Transferase 32 U/L (17-59); Bilirubin,Total 1.2 mg/dl (0.2-1.3); Blood Urea Nitrogen 11 mg/dl (9-20); Calcium 8.7 mg/dl (8.4-10.2); Carbon Dioxide 30 mmol/L (22.0-30.0); Creatinine Clearance Estimated 76 mL/min (50-200); Creatinine,Serum 1.00 mg/dl (0.66-1.25); Estimated Glomerular Filt Rate 78 ml/min (>60); GFR (African American) 94 ML/MIN (>60); Globulin 2.9 g/dL (1.3-3.2); Glucose 103 mg/dl (74-100); Total Protein,Serum 6.8 g/dl (6.3-8.2)
--- NOTE | 2025-04-18 09:15 | PC.NURSE ---
-5685-Blood drawn from right AC using butterfly needle to check labs prior to appt with Dr Bill.
[2025-04-18 10:51] LABS: RBC Morphology Normal; Total Cells Counted 100
== END 2025-04-18 23:59 | disposition home or self-care (01) ==
LOC: INF 08:43
PROVIDERS: PCP Family Medicine; Visit Provider Internal Medicine Medical Oncology
DX: C20 Malignant neoplasm of rectum (principal)
CPT/HCPCS: 36415; 80053; 85007; 85025

== ENCOUNTER 2025-04-25 10:36 | Emergency (ER) | payer OTHER, SELFPAY ==
--- OUTSIDE RECORDS SUMMARY | 2025-02-25 11:50 | XMS_ITS | Encounter Summary ---
Author Organization [facility] Address [address] [id number] Care Team Providers Care Hardboard Supervisor Name Role Phone Tejal Saeed APRN Primary Care Provider [phone] Km Wooten MD Unavailable [phone] Encounter Details Date Type Department Care Team (Latest Contact Info) Description 02/25/2025 11:50 AM EDT - 02/25/2025 11:59 PM EDT Hospital Encounter [facility] [id number] [place] [address] Discharge Disposition: Still a Patient Social History [...] a day. documented as of this encounter Plan of Treatment Upcoming Encounters Date Type Department Care Team (Late st Contact Info) Description 05/27/2025 2:20 PM EST Appointment [facility] [address] [place] [address] Marci Gonzalez APRN [address] [place] [address] documented as of this encounter Visit Diagnoses [...] documented as of this encounter Care Teams Hardboard Supervisor Relationship Specialty Start Date End Date Tejal Saeed APRN [facility] [place] [address] PCP - General 11/07/20 03/11/25 Km Wooten MD [address] [place] [address] Consulting Physician Radiation Oncology 02/14/25 documented as of this encounter
--- OUTSIDE RECORDS SUMMARY | 2025-02-28 15:30 | XMS_ITS | Encounter Summary ---
Author Organization [facility] Address [address] [place] [address] Care Team Providers Care Mattress Spring Encaser Name Role Phone Tejal Saeed APRN Primary Care Provider [phone] Km Wooten MD Unavailable [phone] Reason for Visit * Reason Comments New Patient * Consultation (Routine) - Closed Specialty Diagnoses / Procedures Referred By Contac t Referred To Contact Pulmonology Diagnoses Malignant neoplasm of rectum (CMS/HCC) Km Wooten MD [address] [facility] [address] [place] [address] Phone: tel: fax: [facility] [address] [place] [address] Phone: tel: fax: Referral ID Status Reason Start Date Expiration Date V isits Requested Visits Authorized [id number] Closed Specialty Services Required 2025 08/21/2026 1 1 Encounter Details Date Type Department Care Team (Late st Contact Info) Description 02/28/2025 3:30 PM EDT Office Visit Pav CC Head, Neck & Respiratory [address] [facility], [address]nd [place] [address] Eric Tellez MD [address] [place] [address] Adenopathy (Primary Dx) Social History [...] 3:30 PM EDT HEAD, NECK, RESPIRATORY CLINIC [facility] Referring physician: Km Wooten MD, Con Sumner MD Chief Complaint Mediastinal adenopathy History Of Present Illness Carlos Tripp is a 55 y.o. male with history of lower rectum adenoca, Stage III cT3 cN2a [id number] 02/05/25. CT chest on showed lymph nodes [...] PM EST Appointment [facility] CC Radiation [address] [facility]. [id number] [place] [address] Marci Gonzalez, WATER JET LOOM FIXER [address] [facility] [address] [place] [address] documented as of this encounter Goals Goal [...] documented as of this encounter Care Teams Mattress Spring Encaser Relationship Specialty Start Date End Date Tejal Saeed APRN [address] [place] [address] PCP - General 11/07/20 03/11/25 Km Wooten MD [address] [facility] [address] [place] [address] Consulting Physician Radiation Oncology 02/14/25 documented as of this encounter
--- OUTSIDE RECORDS SUMMARY | 2025-03-01 08:40 | XMS_ITS | Encounter Summary ---
Author Organization [facility] Address [address] [id number] Care Team Providers Care Stores Assistant Name Role Phone Tejal Saeed APRN Primary Care Provider [phone] Km Wooten MD Unavailable [phone] Encounter Details Date Type Department Care Team (Latest Contact Info) Description 03/01/2025 8:40 AM EDT - 03/01/2025 11:59 PM EDT Hospital Encounter [facility] Radiation [id number] [place] [address] Km Wooten MD [address] [place] [address] Discharge Disposition: Still a Patient [...] Appointment [facility] Radiation [id number] [place] [address] Marci Gonzalez, FREIGHT CAR LOADER [address] [place] [address] documented as of this encounter Goals Goal Patient Goal Type Associated Problems Recent Progress Patient-Stated? Author Autogenerat ed Goal Care Plan Autogenerated Problem No [place] Lisa Thayer documented as of this encounter Visit Diagnoses [...] documented as of this encounter Care Teams Stores Assistant Relationship Specialty Start Date End Date Tejal Saeed APRN [address] [place] [address] PCP - General 11/07/20 03/11/25 Km Wooten MD [address] [address] Consulting Physician Radiation Oncology 02/14/25 documented as of this encounter
--- OUTSIDE RECORDS SUMMARY | 2025-03-04 08:42 | XMS_ITS | Encounter Summary ---
Author Organization Healthcare Address [address] [id number] Care Team Providers Care Candy Polisher Name Role Phone Tejal Saeed APRN Primary Care Provider [phone] -[phone] Km Wooten MD Unavailable [phone] Encounter Details Date Type Department Care Team (Latest Contact Info) Description 03/04/2025 8:42 AM EDT - 03/04/2025 11:59 PM EDT Hospital Encounter [facility] [address] [id number] [place] [address] Discharge Disposition: Still a Patient Social History [...] Appointment [facility] [address] [id number] [place] [address] Marci Gonzalez APRN [address] [place] [address] documented as of this encounter Goals Goal [...] documented as of this encounter Care Teams Candy Polisher Relationship Specialty Start Date End Date Tejal Saeed APRN [address]0 [place] [address] PCP - General 11/07/20 03/11/25 Km Wooten MD [address] [place] [address] Consulting Physician Radiation Oncology 02/14/25 documented as of this encounter
--- OUTSIDE RECORDS SUMMARY | 2025-03-11 17:00 | XMS_ITS | Encounter Summary ---
Author Organization [facility] Address [address] [id number] Care Team Providers Care Superintendent Custodian Janitor Name Role Phone Tejal Saeed APRN Primary Care Provider [phone] Km Wooten MD Unavailable Encounter Details Date Type Department Care Team (Latest Contact Info) Description 03/11/2025 5:00 PM EDT - 03/11/2025 11:59 PM EDT Hospital Encounter [facility] [id number] [place] [address] Discharge Disposition: Still a Patient Social History [...] Appointment [facility] [address] [place] [address] Marci Gonzalez APRN [address] [place] [address] documented as of this encounter Goals Goal [...] documented as of this encounter Care Teams Superintendent Custodian Janitor Relationship Specialty Start Date End Date Tejal Saeed APRN [address] [place] [address] PCP - General 11/07/20 03/11/25 Km Wooten MD [address] [place] [address] Consulting Physician Radiation Oncology 02/14/25 documented as of this encounter
--- OUTSIDE RECORDS SUMMARY | 2025-03-12 09:12 | XMS_ITS | Encounter Summary ---
Author Organization [facility] Address [address] [place] [address] Care Team Providers Care Field Health Officer Name Role Phone Km Wooten MD Unavailable [phone] Comfort Siddiqi APRN Primary Care Provider [phone] Reason for Referral * Imaging (Routine) - Closed Specialty Diagnoses / Procedures Referred By Alice maria Referred To Contact Gastroenterology Diagnoses Lung nodule Procedures Bronchoscopy w Eric Salas MD [address] [place] [address] Phone: tel: fax: Referral ID Status Reason Start Date Expiration Date V isits Requested Visits Authorized [id number] Closed Specialty Services Required 02/28/2025 08/30/2026 1 1 Reason for Visit * Imaging (Routine) - Closed Specialty Diagnoses / Procedures Referred By Alice maria Referred To Contact Gastroenterology Diagnoses Lung nodule Procedures Bronchoscopy w Eric Salas MD [facility] [place] [address] Phone: tel: fax: Referral ID Status Reason Start Date Expiration Date V isits Requested Visits Authorized [id number] Closed Specialty Services Required 02/28/2025 08/30/2026 1 1 Encounter Details Date Type Department Care Team (Latest Contact Info) Description 03/12/2025 9:12 AM EDT - 03/12/2025 11:59 PM EDT Hospital Encounter [facility] End[facility] [address] [place] [address] Eric Tellez MD [address] [place] [id number] Lung nodule Discharge Disposition: Home or Self Care Social [...] Sign Reading Time Taken Comments Blood Pressure 120/67 03/12/2025 12:05 PM EDT Pulse 69 03/12/2025 12:05 PM EDT Temperature 36.7 C (98 F) 03/12/2025 11:35 AM EDT Respiratory Rate 20 03/12/2025 12:05 PM EDT Oxygen Saturation 96% 03/12/2025 12:05 PM EDT Inhaled Oxygen Concentration - - Weight 125 kg (274 lb 14.6 oz) 03/12/2025 9:47 A M EDT Height 167.6 cm (5' 6 ) 03/12/2025 9:47 AM EDT Body Mass Index 44.37 03/12/2025 9:47 AM EDT documented in this encounter Medications at Time of Discharge [...] as of this encounter Miscellaneous Notes * Trisha Barrientos, RN - 03/12/2025 12:59 PM EDT Images from the original note were not included. 680 Work Release Form This notice verifies that your employee was seen in this facility today (or on if checked [ ]). He/she may return to work on with the following restrictions: None: [ ] No heavy lifting: [ ] (over pounds) No prolonged standing: [ ] Desk Work Only: [ ] Other: [ ] (described below) These restrictions apply through . After this date, your employee should be able to participate fully in work duties. Be Advised: If symptoms continue and the employee is unable to perform the full duties of their job by this date, please advise the employee to make an appointment with your worker?s comp physician. If that is not possible, the employee should see his or her own doctor or the referral doctor provided by us. Physician or Nurse Notes: * H&P - Eric Tellez MD - 03/12/2025 10:30 AM EDT Pre-procedure H&P Requesting Provider: Eric Tellez MD Pre Procedure H and P 03/12/2025 Location: Endoscopy Brief H and P: Carlos Tripp is a 55 y.o. male with history of lower rectum adenoca, Stage III cT3 cN2a [id number] 02/05/25. CT chest on showed lymph nodes that were in the upper limit of normal. Rad ONC has evaluated the pat and planning on radiation. We have been requested to sample the chest lymph nodes. Past 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 Past 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[1] 14 point ROS normal except:A comprehensive review of systems was negative. Medications: Prior to Admission medications Medication Sig Start Date End Date Taking? Authorizing Provider atorvastatin (Lipitor) 20 MG tablet Take 1 tablet by mouth daily. 01/11/25 Yes Provider, Historical cetirizine (ZyrTEC) 10 MG tablet Take 1 tablet by mouth daily. Patient not taking: Reported on 03/12/2025 02/14/25 Provider, Historical DOXYCYCLINE MONOHYDRATE PO Take 100 mg by mouth 2 times a day. Patient not taking: No sig reported Provider, Historical fluticasone (Flonase) 50 MCG/ACT nasal spray use 1 spray(s) in each nostril once daily Patient not taking: Reported on 03/12/2025 02/14/25 Provider, Historical hydrocortisone (Anusol-HC) 25 MG suppository Insert 1 suppository into the rectum 2 times a day. Patient not taking: No sig reported Provider, Historical Anticoagulation/ASA: none Last dose: not applicable Allergies: Patient has no known allergies. Social history: Reviewed and non contributory Family history: Reviewed and non contributory Results Coags: No results found for: INR , PT1 , APTT , HPRN , CLFGN CBC: No results found for: WBC , HGB , HCT , RBC , MCV , MCH , MCHC , RDW , MPV , NRBC , NEUTOPHILPCT , LYMPHOPCT , MONOPCT , EOSPCT , BASOPCT , CIG BMP: No results found for: NA , K , CA , CL , BUN , CO2 , CREATININE , GLUCOSE , MG , PHOS , CAION Last Recorded Vitals Visit Vitals Smoking Status Never Physical Exam GENERAL: not in distress EYES: anicteric sclerae, PERRLA HENT: Oropharynx clear with moist mucous membranes and no mucosal ulcerations NECK/Lymph: Trachea midline; No thyromegaly or lymphadenopathy . RESP: Good air movement, Breath sounds clear to auscultation. No wheezing. CARD: RRR, without murmur, rubs, or gallop Extremities: No edema, cyanosis or clubbing. GI: No organomegaly or masses. Abdomen is soft, nontender and nondistended. BS present x 4 quadrants SKIN: No rash, ulcers or subcutaneous nodules NEURO: Alert and oriented, moves all extremeties, reflexes present and symmetrical, no focal deficit Impression/indication for procedure: Carlos Tripp is a 55 y.o. male lower rectum adenoca, Stage III cT3 cN2a M0, with some marginally enlarged mediastinal adenopathy. He is going to receive radiation therapy and a chemotherapy pill. Differential: reactive adenopathy, past infection/ granuloma/ possible mets from the rectal ca in descending order. Procedure to be performed: Bronchoscopy airway examination wash, Linear EBUS, and Needle aspiration Side: To be determined during the procedure. Consent: yes [1] Past 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: Diagnosis Date Rectal mass * Rosmery Winter - 03/12/2025 9:34 AM EDT Images from the original note were not included. [id number] Anesthesia: General Anesthesia You?re due to have surgery. During surgery, you?ll be given medicine called anesthesia or anesthetic. This will keep you comfortable and pain-free. Your anesthesia provider will use general anesthesia . You are watched continuously during your procedure by your anesthesia provider. What is general anesthesia? General anesthesia puts you into a state like deep sleep. It goes into the bloodstream (IV anesthetics), into the lungs (gas anesthetics),or both. You feel nothing during the procedure. You won't remember it either. During the procedure, the anesthesia provider monitors you continuously. They trackyour heart rate and rhythm, blood pressure, breathing, and blood oxygen. ? IV anesthetics. IV anesthetics are given through an IV (intravenous) line in your arm. They?re often given first. This is so you're asleep before a gas anesthetic is started. Some kinds of IV anesthetics ease pain. Others relax you. Your healthcare provider will decide which kind is best in your case. ? Gas anesthetics. Gas anesthetics are breathed into the lungs. They're often used to keep you asleep. They can be given through a face mask. Or they can be given through a tube placed in your voice box (larynx) or breathing tube (trachea). o Face mask. Your anesthesia provider will most likely place the face mask over your nose and mouthwhile you?re still awake. You?ll breathe oxygen through the mask as your IV anesthetic is started. Gas anesthetic may be added through the mask. o Tube in the larynx or trachea. The tube will be inserted into your throat after you?re asleep. Anesthesia tools and medicines You will likely have: ? IV anesthetics. These are put into an IV line into your bloodstream. ? Gas anesthetics. You breathe these anesthetics into your lungs. Then they pass into your bloodstream. ? Pulse oximeter. This is a small clip that's attached to the end of your finger. It measures your blood oxygen level. ? Electrocardiography leads (electrodes). These are small sticky pads that are placed on your chest. They record your heart rate and rhythm. ? Blood pressure cuff. This reads your blood pressure. Risks and possible complications General anesthesia has some risks. These include: ? Breathing problems ? Upset stomach (nausea) and vomiting ? Sore throat or hoarseness (usually temporary) ? Allergic reaction to the anesthetic ? Irregular heartbeat (rare) ? Cardiac arrest (rare) Anesthesia safety ? Follow any directions you're given for not eating or drinking before your procedure. ? Tell your healthcare provider what medicines you take. This includes prescription and pbfi-czc-fgphvnm medicines. It also includes vitamins, herbs, and other supplements. You'll be asked when thosewere last taken. ? Have a trusted adult drive you home after the procedure. ? For the first 24 hours after your surgery: o Don't drive or use heavy equipment. o Don't make important decisions or sign legal documents. If important decisions or signing legal documents is necessary during the first 24 hours after surgery, have a trusted family member or spouse act on your behalf. o Don't drink alcohol. o Have a responsible adult stay with you. They can watch for problems and help keep you safe. Last Reviewed Date: 2023 00:00:00 ?? [employer]. All rights reserved. This information is not intended as a substitute for professional medical care. Always follow your healthcare professional's instructions. * Marleni Lee - Rosmery Barron - 03/12/2025 9:33 AM EDT Images from the original note were not included. 61 After a Bronchoscopy Home care ? Getting home: We will give you a medicine that makes you sleepy. You may not drive or ride home alone. Someone must be with you until you get home. ? Driving: Do not drive or use dangerous equipment for 24 hours. ? Eating and drinking: Your throat will be numb after treatment. Do not eat or drink until the numbness goes away. This often takes ?? to 1 hours. ? Sore throat: Your throat may be sore or hoarse for the next day or 2. ? Fever: You may have a mild fever tonight. If your temp is over 100?F, you may take gxgt-btk-shfvtsz Tylenol. ? Blood in the mouth: For a few days, you may cough up a little blood or have a little blood in your spit. This is normal. Call [phone] right away if you have any of the following ? Shortness of breath Call your doctor if you have any of the following These may be related to the treatment and need medical attention. If you do not tell your doctor, the problem may get worse. ? Sore throat for more than 24 hours ? Fever for more than 24 hours ? Coughing up blood - more than 2 tablespoons between now and tomorrow morning ? Pain in the chest ? Breathing problems Our contact information ? For Adult Pulmonary, call . Nights and weekends, call [phone] and ask for the florist designer long haul truck driver. ? For the Transplant Service, call . Nights and weekends, call . ? For Pediatric Pulmonary, call and ask for the pediatric attending long haul truck driver. ? For Otolaryngology, call . Nights and weekends, call [phone] and ask for thesurgical resident long haul truck driver. documented in this encounter Plan of Treatment Upcoming Encounters Date Type Department Care Team (Late st Contact Info) Description 05/27/2025 2:20 PM EST Appointment [facility] Radiation [id number] [place] [address] Marci Gonzalez, SENIOR C DEVELOPER [id number] [place] [id number] documented as of this encounter Goals Goal Patient Goal Type Associated Problems Recent Progress Patient-Stated? Author Autogenerat ed Goal Care Plan Autogenerated Problem No Lisa Johnston documented as of this encounter Procedures Procedure Name Priority Date/Time Associated Diagnosis Comments FUNGAL CULTURE, TISSUE AND PARMINDER Routine 03/12/2025 12:37 PM EDT AFB CULTURE, NON RESPIRATORY SOURCE AND ACID FAST STAIN Routine 03/12/2025 12:37 PM EDT TISSUE CULTURE AND GRAM STAIN Routine 03/12/2025 12:37 PM EDT ANAEROBIC CULTURE Routine 03/12/2025 12: 37 PM EDT BRONCHOSCOPY Routine 03/12/2025 11:25 AM EDT Lung nodule FINE NEEDLE ASPIRATION - CYTOLOGY Routine 03/12/2025 10:43 AM EDT Lung nodule documented in this encounter Results * Fungal Culture, Tissue and PARMINDER (03/12/2025 12:37 PM EDT) Culture Reading Mycological 4 Weeks No Fungal Growth at 4 Weeks 04/09/2025 6:43 AM EDT [facility] PARMINDER No fungal elements seen 04/09/2025 6:43 AM EDT [facility] Fine Needle Aspirate Structure of lymph node / Unknown Non-blood Collection / Unknown 03/12/2025 12:37 PM EDT 03/12/2025 12:46 PM EDT us Eric Tellez MD LAB MICROBIOLOGY - GENERAL OR DERABLES Final Result Performing Organization Address City/[facility] Co de Phone Number [facility] [address] [place] [address] * AFB Culture, Non Respiratory Source and Acid Fast Stain (03/12/2025 12:37 PM EDT) AFB Culture No Mycobacterial Growth at 6 Weeks 04/24/2025 4:02 PM EDT [facility] Acid Fast Stain No acid fast bacilli seen 04/24/2025 4:02 PM EDT [facility] Fine Needle Aspirate Structure of lymph node / Unknown Non-blood Collection / Unknown 03/12/2025 12:37 PM EDT 03/12/2025 12:46 PM EDT Eric Tellez MD LAB MICROBIOLOGY - GENERAL OR DERABLES Final Result Performing Organization Address [facility] Co de Phone Number [facility] [address] [place] [address] * (ABNORMAL) Anaerobic Culture (03/12/2025 12:37 PM EDT) Culture No anaerobes isolated 03/16/2025 4:33 PM EDT [facility] Culture Streptococcus mitis/oralis group(A) 03/16/2025 4:33 PM EDT [facility] Comment: This isolate has been identified using the FDA Approved [employer] System The organism value for this result has been updated. These results have been appended to the previously preliminary verified report. Fine Needle Aspirate Structure of lymph node / Unknown Non-blood Collection / Unknown 03/12/2025 12:37 PM EDT 03/12/2025 12:46 PM EDT Narrative Organism Antibiotic Method Susceptibility Streptococcus mitis/oralis group Penicillin G ETEST 0.032 ug/ml: Susceptible Eric Tellez MD LAB MICROBIOLOGY - GENERAL OR DERABLES Final Result Performing Organization Address [facility] Co de Phone Number [facility] [address] [place] [address] * Tissue Culture and Gram Stain (03/12/2025 12:37 PM EDT) Culture No growth at day 4 2024 2:01 PM EDT [facility] Gram Stain Result No organisms seen 03/16/2025 2:01 PM EDT [facility] Gram Stain Result No polymorphonuclear leukocytes seen 03/16/2025 2:01 PM EDT [facility] Fine Needle Aspirate Structure of lymph node / Unknown Non-blood Collection / Unknown 03/12/2025 12:37 PM EDT 03/12/2025 12:46 PM EDT us Eric Tellez MD LAB MICROBIOLOGY - GENERAL OR DERABLES Final Result [facility] [address] [place] [address] * Bronchoscopy w EBUS (03/12/2025 11:25 AM EDT) Anatomical Region Laterality Modality Endoscopy Narrative 03/12/2025 11:16 AM EDT Table formatting from the original result was not included. Indication Mediastinal and hilar adenopathy, history of rectal cancer Preprocedure A history and physical has been performed, and patient medication allergies have been reviewed. The patient's tolerance of previous anesthesia has been reviewed. The risks and benefits of the procedure and the sedation options and risks were discussed with the patient. All questions were answered and informed consent obtained. Anesthesia/Sedation Medications See anesthesia record for anesthesia administered medications. Details of the Procedure The patient underwent general anesthesia, which was administered by an anesthesia professional. The patient's blood pressure, heart rate, level of consciousness, oxygen saturation and respirations were monitored throughout the procedure. The patient experienced no blood loss. The scope was introduced through the endotracheal tube. The procedure was not difficult. The patient tolerated the procedure well. There were no apparent adverse events. Fluoroscopy time: 0 min, and 0 seconds. Findings The main franko, left lung and right lung appeared normal. Subcarinal station (7) evaluated. Passes taken with a 22 gauge needle. The sample was adequate. Right lower paratracheal station (4R) evaluated. Passes taken with a 22 gauge needle. The sample was adequate. Right interlobar station (11R) evaluated. Passes taken with a 21 gauge needle. The sample was adequate. Nodes observed under convex ultrasound guidance. Onsite grinder operator automatic was present and cytology results were preliminarily benign. Specimens ID Type Source Tests Collected by Time A : station 7 / FNA Fine Needle Aspirate Lymph Node FINE NEEDLE ASPIRATION - CYTOLOGY Eric Tellez MD 03/12/2025 1043 B : 4 R / FNA Fine Needle Aspirate Lymph Node FINE NEEDLE ASPIRATION - CYTOLOGY Eric Tellez MD 03/12/2025 1051 C : 11 R / FNA Fine Needle Aspirate Lymph Node FINE NEEDLE ASPIRATION - CYTOLOGY Eric Tellez MD 03/12/2025 1059 Events Procedure Events Event Event Time ENDO SCOPE IN TIME 03/12/2025 10:27 AM ENDO SCOPE OUT TIME 03/12/2025 11:10 AM Staff Staff Role Nel Mccoy, RN Endo Nurse Carmen Zelaya Endo Carton Forming Machine Helper Palma Marin CRNA MAST MAKER Eric Tellez MD Proceduralist Shaun Hanley MD Anesthesiologist Impression Overall Impression: Normal endobronchial exam The three lymph nodes sampled today on [address] were benign Post Procedure Diagnosis None Recommendation Follow-up: with referring provider Attestation I was present for the entire procedure Billing Codes See procedure report details above. 56231 - EBUS convex prove 1 or 2 lesions GC - Service has been performed in part by a resident/fellow under the direction of a teaching physician Eric Tellez MD GI PROCEDURE ORDERABLES Final Result * Fine needle aspiration (03/12/2025 10:43 AM EDT) Case Report Cytology Case: [id number] Authorizing Provider: Eric Tellez MD Collected: 03/12/2025 1043 Ordering Location: [facility] H Endoscopy Received: 03/12/2025 1129 Pathologist: Nicole Mccoy MD Specimens: A) - Lymph node, Station 7, Fine Needle Aspiration, LYMPH NODE, STATION 7, ENDOBRONCHIAL ULTRASOUND GUIDED FINE NEEDLE ASPIRATION B) - Lymph Node, 4R, Fine Needle Aspiration, LYMPH NODE, 4 RIGHT, ENDOBRONCHIAL ULTRASOUND GUIDED FINE NEEDLE ASPIRATION C) - Lymph Node, 11R, Fine Needle Aspiration, LYMPH NODE, 11 RIGHT, ENDOBRONCHIAL ULTRASOUND GUIDED FINE NEEDLE ASPIRATION 09/18/202 5 12:59 PM EDT [facility] Final Diagnosis A. LYMPH NODE, STATION 7, ENDOBRONCHIAL ULTRASOUND-GUIDED FINE NEEDLE ASPIRATION: NO EVIDENCE OF MALIGNANCY, HEMODILUTE LYMPHOID TISSUE. B. LYMPH NODE, 4 RIGHT, ENDOBRONCHIAL ULTRASOUND-GUIDED FINE NEEDLE ASPIRATION: NO EVIDENCE OF MALIGNANCY, HEMODILUTE LYMPHOID TISSUE. C. LYMPH NODE, 11 RIGHT, ENDOBRONCHIAL ULTRASOUND-GUIDED FINE NEEDLE ASPIRATION: NO EVIDENCE OF MALIGNANCY, HEMODILUTE LYMPHOID TISSUE. 12:59 PM EDT [facility] at 1259 EDT Comment The possibility of rare poorly-formed granulomas is not excluded, especially in the station 7 lymph node sample. For this reason, GMS and AFB stains are performed. These are negative for organisms. 12:59 PM EDT [facility] Special and Immunohistochemical Stains Special Stain: A1-2 Acid Fast Bacteria A1-3 GMS IHC: There are no tasks to display for the given criteria. All controls show appropriate reactivity. All immunohistochemis try, in situ hybridization, and histochemical tests were developed by and are performed at the [facility], [address] [place] [address]. All tests reported here, except those addressing HER2 (breast) and PD-L1 expression as predictive markers, have not been cleared by or approved by the US Food and Drug Administration (FDA). The FDA has determined that such clearance or approval is not necessary. The laboratory is regulated under CLIA as qualified to perform high-complexity testing. The tests are used for clinical purposes. They should not be regarded as investigational or for research. This assay has not been validated on decalcified tissues. Results should be interpreted with caution given the likelihood of false negativity on decalcified specimens. 12:59 PM EDT [facility] Immediate Evaluation A. FNA performed by: Dr. Tellez Number of sticks: 6 Immediate evaluation performed by: Dr. Mccoy//SP Evaluation episode # 1-3: Very hemodilute lymphoid tissue. B. FNA performed by: Dr. Tellez Number of sticks: 6 Immediate evaluation performed by: Dr. Mccoy//SP Evaluation episode # 1-4: Very hemodilute lymphoid tissue. C. FNA performed by: Dr. Tellez Number of sticks: 4 Immediate evaluation performed by: Dr. Mccoy/LT/SP Evaluation episode # 1-2: Broncs and very hemodilute lymphoid tissue. 3-4: Hemodilute lymphoid tissue. The immediate evaluation in this case was performed via telecytology by the attending physician listed above. 5 12:59 PM EDT [facility] Gross Description A. LYMPH NODE, STATION 7, ENDOBRONCHIAL ULTRASOUND GUIDED FINE NEEDLE ASPIRATION 22 ml's bloody needle rinse fluid processed as cellblock for complete evaluation of sample. Received 3 diff quick slides and 3 pap slides. Portion of specimen sent to microbiology. Cold Time: 1h 47m B. LYMPH NODE, 4 RIGHT, ENDOBRONCHIAL ULTRASOUND GUIDED FINE NEEDLE ASPIRATION 5 ml's tinted needle rinse fluid processed as cellblock for complete evaluation of sample. Received 4 diff quick slides and 4 pap slides. Cold Time: 1h 39m C. LYMPH NODE, 11 RIGHT, ENDOBRONCHIAL ULTRASOUND GUIDED FINE NEEDLE ASPIRATION 5 ml's tinted needle rinse fluid processed as cellblock for complete evaluation of sample. Received 4 diff quick slides and 4 pap slides. Cold Time: 1h 31m 5 12:59 PM EDT [facility] Note: A resident was involved in the service. I attest I examined the relevant preparations for the specimens and confirmed the diagnosis or interpretation. 5 12:59 PM EDT [facility] Clinical Information R91.1 - Lung nodule [ICD-10-CM] 5 12:59 PM EDT [facility] Fine Needle Aspirate Structure of lymph node / Unknown 03/12/2025 10:43 AM EDT 03/12/2025 11:29 AM EDT Specimen obtained by fine needle aspiration procedure (specimen) Structure of lymph node / Unknown 03/12/2025 10:51 AM EDT 03/12/2025 11:29 AM EDT Specimen obtained by fine needle aspiration procedure (specimen) Structure of lymph node / Unknown 03/12/2025 10:59 AM EDT 03/12/2025 11:29 AM EDT us Eric Tellez MD LAB CYTOLOGY ORDERABLES Final Result [facility] [address] [place] [address] documented in this encounter Visit Diagnoses Diagnosis Lung nodule Other diseases of lung, not elsewhere classified documented in this encounter Administered Medications Inactive Administered Medications - up to 3 most recent administrations Medication Order MAR Action Action Date Dose Rate Site lactated Ringer's infusion 50 mL/hr, Intravenous, Once, 1 dose, On 03/12/25 at 1045, Routine New Bag 03/12/2025 9:54 AM EDT 50 mL/hr 50 mL/hr documented in this encounter Additional Health Concerns [...] as of this encounter Care Teams Field Health Officer Relationship Specialty Start Date End Date Comfort Siddiqi APRN [address] [place] [address] PCP - General 03/12/25 Km Wooten MD [address] [facility] [address] [place] [address] Consulting Physician Radiation Oncology 02/14/25 documented as of this encounter
--- OUTSIDE RECORDS SUMMARY | 2025-03-12 10:12 | XMS_ITS | Encounter Summary ---
Author Organization [facility] Address [address] [place] [address] Care Team Providers Care Repairer Shoe Sticks Name Role Phone Km Wooten MD Unavailable [phone] Comfort Siddiqi APRN Primary Care Provider [phone] Encounter Details Date Type Department Care Team (Late st Contact Info) Description 03/12/2025 10:12 AM EDT Anesthesia Event [facility] [address] [place] [address] Shaun Hanley MD [address] [place] [address] Anesthesia Record Procedure Summary Procedure Name Responsible Anesthesiologist Anesthesia Start Time Anesthesia Stop Time BRONCHOSCOPY Shaun Hanley MD 03/12/25 1012 1132 Events Date Time Event Comment 03/12/2025 1012 An Start The patient was reevaluated immediately before sedation and remains eligible for anesthesia plan. 1013 In Room 1013 An Start Data 1017 An Induction The patient was reevaluated immediately before moderate or deep sedation use and before anesthesia induction. 1022 An Intubation 1024 Anesthesia Ready 1027 Proc Start 1110 Proc Fin 1123 An Extubation 1125 Out of Room 1127 an stop data 1131 Handoff to Receiving I compl eted my handoff to the receiving clinician during which we: 1. Identified the patient 2. Identified the responsible provider 3. Reviewed the pertinent medical history 4. Discussed the surgical course 5. Reviewed intra-op anesthesia management and issues during anesthesia 6. Set expectations for post-procedure period 7. Allowed opportunity for questions and acknowledgement of understanding. 1132 An Stop Meds Name Total lidocaine PF (Xylocaine-MPF) 2% 100 mg propofol (Diprivan) injection 10 mg/mL 3 00 mg rocuronium (ZeMuron) injection 10 mg/mL 75 mg succinylcholine (Anectine) injection 20 mg/mL 140 mg ondansetron (Zofran) injection 2 mg/mL 4 mg sugammadex (Bridion) injection 100 mg/mL 300 mg propofol (Diprivan) infusion 10 mg/mL 1, 022.54 mg albuterol (Proventil, Ventolin, ProAir) inhaler 108 (90 BASE) mcg/act 4 puff lactated Ringer's infusion 500 mL * Agents No agents on file. * Blood No blood administrations on file. Lines, Drains, and Airways Type Details Placement Removal Peripheral IV Placement Date: 03/12/25; Placement Time: 940; Catheter Size: 20 G; Orientation: Posterior, Right; Location: Hand; Inserted by: sailaja; Insertion Attempts: 1; Patient Tolerance: Tolerated well; Removal Date: 03/14/25; Removal Time: 00303/12/25 09 by Anderson, Aerial 03/14/25 003 by Discharge Provider, Automatic ETT Placement Date: 03/12/25; Placement Time: 1021 (created via procedure documentation); Mask Ventilation: 2; Technique: Video laryngoscopy; Type: ETT - single; Single Lumen Tube Size: 8.5 mm; Cuffed: Yes; Laryngoscope: Paige; Blade Size: 4; Location: Oral; Grade View: Grade IIa; Insertion Attempts: 1; Placement Verification: Auscultation, Capnometry; Airway Comments: Atraumatic. No change to dentition. ; Placed by: TEDDY; Removal Date: 03/12/25; Removal Time: 1123 03/12/25 1022 by Palma Marin CRNA 03/12/25 1123 by Palma Marin CRNA documented in this encounter Social History Tobacco Use Types Packs/Day Years [...] as of this encounter Miscellaneous Notes * Anesthesia Postprocedure Evaluation - Palma Marin CRNA - 03/12/2025 11:39 AM EDT Patient: Carlos Tripp Anesthesia Type: general Vitals Value Taken Time BP 104/54 03/12/25 11:35 Temp 36.7 ??C (98 ??F) 03/12/25 11:31 Pulse 69 03/12/25 11:38 Resp 18 03/12/25 11:31 SpO2 100 % 03/12/25 11:38 Vitals shown include unfiled device data. Anesthesia Post Evaluation Patient location during evaluation: PACU Patient participation: complete - patient participated Level of consciousness: awake Pain management: adequate (pain score 0-3) Airway patency: natural airway Cardiovascular status: acceptable and hemodynamically stable Respiratory status: acceptable and blow-by oxygen Hydration status: acceptable Nausea/Vomiting: No No notable events documented. * Anesthesia Procedure Notes - Palma Marin CRNA - 03/12/2025 10:31 AM EDT Associated Order(s): Airway Airway Date/Time: 03/12/2025 10:22 AM Reason: elective Airway not difficult General Information and Staff Patient location during procedure: OR HRIS MANAGER: Palma Marin CRNA Performed: HRIS MANAGER Patient Condition Indications for airway management: anesthesia Patient position: sniffing MILS maintained throughout Final Airway Details Final airway type: endotracheal airway Successful airway: ETT Cuffed: yes Successful intubation technique: video laryngoscopy Adjuncts used in placement: intubating stylet Endotracheal tube insertion site: oral Blade: Paige Blade size: #4 ETT size (mm): 8.5 Cormack-Lehane Classification: grade IIa - partial view of glottis Placement verified by: chest auscultation and capnometry Inital cuff pressure (cm H2O): 6 Measured from: lips ETT to lips (cm): 23 Ventilation between attempts: none Additional Comments Atraumatic. No change to dentition. * Anesthesia Preprocedure Evaluation - Misha Quevedo MD - 03/12/2025 10:06 AM EDT Anesthesiologist: Shaun Hanley MD HRIS MANAGER: Palma Marin CRNA Patient: Carlos Tripp HPI Carlos Tripp is a 55 y.o. male with body mass index is 44.37 kg/m??. who presents with No Principal Problem: There is no principal problem currently on the Problem List. Please update the Problem List and refresh., now for Procedure Information Date/Time: 03/12/25 1030 Scheduled providers: Eric Tellez MD Procedure: BRONCHOSCOPY Location: [facility] Patient with history of rectal cancer now with possible lymph nodes on chest CT, for bronch with biopsy. Has had GA in the past with no issues. METS>4, NKDA, consents to blood transfusion as needed. Relevant Problems GI (+) Malignant neoplasm of rectum (CMS/HCC) ALLERGIES Allergies[1] NPO STATUS Date of Last Liquid: 03/12/25 Time of Last Liquid: 0750 Date of Last Solid: 03/11/25 Time of Last Solid: 190 Last Intake Type: Clear fluids Past 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[2] AIRWAY HISTORY Airway Detailed Review Displaying the 20 most recent records No records found. MEDICATIONS Outpatient Current Outpatient Medications Medication Instructions atorvastatin (LIPITOR) 20 mg, Daily cetirizine (ZYRTEC) 10 mg, Daily DOXYCYCLINE MONOHYDRATE PO 100 mg, 2 times daily fluticasone (Flonase) 50 MCG/ACT nasal spray use 1 spray(s) in each nostril once daily hydrocortisone (ANUSOL-HC) 25 mg, 2 times daily Scheduled Current Scheduled Medications[3] PRNs Current PRN Medications[4] SURGICAL HX: Surgical History[5] SOCIAL HX: Social History[6] OBJECTIVE DATA LABS No results found for: WBC , HGB , HCT , MCV , PLT No results found for: CALCIUM , BUN , CREATININE , BCR , NA , K , CL , CO2 , AG , CA Type and Screen No results found for: ABO No results found for: HGBA1C No results found for: PGLU , GLUCOSE ABG No results found for: PHART , RNG3FUS , PO2ART , SO2ART , BEART , QMZ7GVJ , HCTART , SODIUMART , POTASSIUMART , POCTCL , POCGLU , IONCALART , LACTATE No results found for: PH , PCO2 , PO2 , Z3XUBORX , BASEEXC , HCTSYR , KSYR , CLSYR , GLUSYR , CAION , LACTATE ECHO No echocardiogram results found for the past 12 months PFTs No results found for: LPT2MBU , PJX8ZRIT , HAT4OFB , FVCPRED BP Readings from Last 5 Encounters: 03/12/25 (!) 141/83 02/28/25 120/80 02/19/25 118/75 02/05/25 123/78 Physical Exam Airway Mallampati: II Mouth opening: normal Neck ROM: full Cardiovascular Rhythm: regular Rate: normal Dental - normal exam Pulmonary Breath sounds clear to auscultation Neurological Oriented: normal to time, normal to place and normal to person and oriented to person, place and time Skin Musculoskeletal Extremities Anesthesia Plan ASA 3 Plan was reviewed with: attending Anesthesia technique(s) discussed with the patient/family: general Anesthesia plan agreed upon was: general Anesthetic plan and risks discussed with patient. Use of blood products discussed with patient who consented to blood products. ROS Anesthesia: history of previous anesthesia. Does not have a history of anesthetic complications. Cardiovascular: Does not have CAD or past [place]. Does not have chest pain. Respiratory: no asthma: no COPD: Respiratory ROS additional comments: Concern for thoracic lymph nodes HEENT: Does not have chipped teeth, loose teeth or missing teeth. Neurological: no seizures: Did not have a cerebrovascular accident. Gastrointestinal: Does not have GERD. GI/ additional comments: Rectal cancer Endocrine/Metabolic: diabetes mellitus (Pre diabetes). [1] No Known Allergies [2] Past 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: Diagnosis Date Rectal mass [3] [4] PRN medications: acetaminophen, lidocaine, ondansetron, Insert peripheral IV AND [place] IV AND sodium chloride AND sodium chloride [5] Past Surgical History: Procedure Laterality Date CHOLECYSTECTOMY [6] Social History Tobacco Use Smoking status: Never Smokeless tobacco: Never Vaping Use Vaping status: Never Used Substance Use Topics Alcohol use: Yes Comment: Rarely Drug use: Never Cosigned by Shanu Hanley MD at 03/12/2025 11:21 AM EDT Associated attestation - Shaun Hanley MD - 03/12/2025 11:21 AM EDT I agree with the findings and care plan documented in the preprocedure evaluation note. documented in this encounter Plan of Treatment Upcoming Encounters Date Type Department Care Team (Late st Contact Info) Description 05/27/2025 2:20 PM EST Appointment [facility] [address] [place] [address] Marci Gonzalez, OSHA INSPECTOR [address] [place] [address] documented as of this encounter Goals Goal Patient Goal Type Associated Problems Recent Progress Patient-Stated? Author Autogenerat ed Goal Care Plan Autogenerated Problem No Preston Lisa Thayer documented as of this encounter Procedures Procedure Name Priority Date/Time Associated Diagnosis Comments PB ANESTHESIA PLACEHOLDER Routine 03/12/2025 10:22 AM EDT NM AN ELECTIVE ENDOTRACHEAL AIRWAY Routine 03/12/2025 10:22 AM EDT documented in this encounter Results * NM AN ELECTIVE ENDOTRACHEAL AIRWAY, PB ANESTHESIA PLACEHOLDER (03/12/2025 10:22 AM EDT) Narrative Palma Marin CRNA - 03/12/2025 10:22 AM EDT Palma Marin CRNA 03/12/2025 10:32 AM Airway Date/Time: 03/12/2025 10:22 AM Reason: elective Airway not difficult General Information and Staff Patient location during procedure: OR HRIS MANAGER: Palma Marin CRNA Performed: HRIS MANAGER Patient Condition Indications for airway management: anesthesia Patient position: sniffing MILS maintained throughout Final Airway Details Final airway type: endotracheal airway Successful airway: ETT Cuffed: yes Successful intubation technique: video laryngoscopy Adjuncts used in placement: intubating stylet Endotracheal tube insertion site: oral Blade: Paige Blade size: #4 ETT size (mm): 8.5 Cormack-Lehane Classification: grade IIa - partial view of glottis Placement verified by: chest auscultation and capnometry Inital cuff pressure (cm H2O): 6 Measured from: lips ETT to lips (cm): 23 Ventilation between attempts: none Additional Comments Atraumatic. No change to dentition. us Shaun Hanley MD ANESTHESIA ORDERABLES Fin al Result documented in this encounter Visit Diagnoses Not on filedocumented in this encounter Administered Medications Inactive Administered Medications - up to 3 most recent administrations Medication Order MAR Action Action Date Dose Rate Site albuterol 108 (90 Base) MCG/ACT inhaler Inhalation, As needed, Starting on Tue03/12/25 at 1122, Until Tue03/12/25 at 1140, Routine, Anesthesia Intraprocedure Given 03/12/2025 11:22 AM EDT 4 puffs lactated Ringer's infusion Intravenous, Continuous PRN, Starting on Tue03/12/25 at 1012, Until Tue03/12/25 at 1139, Routine New Bag 03/12/2025 10:35 AM EDT New Bag 03/12/2025 10:12 AM EDT lidocaine PF (Xylocaine) 2 % injection Intravenous, As needed, Starting on Tue03/12/25 at 1017, Until Tue03/12/25 at 1139, Routine, Anesthesia Intraprocedure Given 03/12/2025 10:17 AM EDT 100 mg ondansetron (Zofran) injection Intravenous, As needed, Starting on Tue03/12/25 at 1030, Until Tue03/12/25 at 1139, Routine, Anesthesia Intraprocedure Given 03/12/2025 10:30 AM EDT 4 mg propofol (Diprivan) infusion 10 mg/mL Intravenous, Continuous PRN, Starting on Tue03/12/25 at 1022, Until Tue03/12/25 at 1139, Routine Rate/Dose Change 03/12/2025 10:42 AM EDT 150 mcg/kg/min 112.23 mL/hr New Bag 03/12/2025 10:22 AM EDT 200 mcg/kg/min 149.64 m L/hr propofol (Diprivan) injection Intravenous, As needed, Starting on Tue03/12/25 at 1017, Until Tue03/12/25 at 1139, Routine, Anesthesia Intraprocedure Given 03/12/2025 10:22 AM EDT 100 mg Given 03/12/2025 10:17 AM EDT 200 mg rocuronium (ZeMuron) injection Intravenous, As needed, Starting on Tue03/12/25 at 1017, Until Tue03/12/25 at 1139, Routine, Anesthesia Intraprocedure Given 03/12/2025 10:58 AM EDT 25 mg Given 03/12/2025 10:24 AM EDT 45 mg Given 03/12/2025 10:17 AM EDT 5 mg succinylcholine (Anectine) injection Intravenous, As needed, Starting on Tue03/12/25 at 1018, Until Tue03/12/25 at 1139, Routine, Anesthesia Intraprocedure Given 03/12/2025 10:18 AM EDT 140 mg sugammadex (Bridion) 100 MG/ML injection Intravenous, As needed, Starting on Tue03/12/25 at 1112, Until Tue03/12/25 at 1139, Routine, Anesthesia Intraprocedure Given 03/12/2025 11:12 AM EDT 300 mg documented in this encounter Additional Health Concerns [...] documented as of this encounter Care Teams Repairer Shoe Sticks Relationship Specialty Start Date End Date Comfort Siddiqi APRN [address] [place] [address] PCP - General 03/12/25 Km Wooten MD [address] [place] [phone] Consulting Physician Radiation Oncology 02/14/25 documented as of this encounter
--- OUTSIDE RECORDS SUMMARY | 2025-03-15 09:00 | XMS_ITS | Encounter Summary ---
Author Organization [facility] Address [address] [place] [address] Care Team Providers Care Human Resources Hr Representative Name Role Phone Km Wooten MD Unavailable [phone] Comfort Siddiqi APRN Primary Care Provider [phone] Reason for Visit * Reason Comments Adenopathy Encounter Details Date Type Department Care Team ([facility] Contact Info) Description 03/15/2025 9:00 AM EDT Office Visit Pav CC Head, Neck & Respiratory [address] [place] [address] Deepak Haider MD [address] [place] [address] Malignant neoplasm of rectum (CMS/HCC) [...] Patient confirms they are physically located in [place]? Yes If the patient is not physically located in [place], the provider has confirmed with [facility] thatthe provider is authorized to provide services in patient's stated location? N/A Provider Location: [facility] facility Audio and video or audio only? Audio and video Total visit time: 10 minutes INTERVENTIONAL PULMONARY FOLLOW-UP OUTPATIENT NOTE: Patient ID/Chief Complaint: .Carlos Tripp is a 55 y.o. male presenting for follow up for mediastinal adenopathy. History of Present Illness: Carlos Tripp is a 55 y.o. male with history of lower rectum adenoca, Stage III cT3 cN2a [id number] 02/05/25. CT chest on showed lymph nodes [...] History Administered Date(s) Administered Moderna COVID-19 Vaccine (Wastewater Design Engineer) 12+ years 10/11/2020, 11/08/2020, 06/24/2021 Physical Examination: Vital Signs: Weight 126 kg (277 lb). Review of Data: Fine needle aspiration: [id number] Order: [id number] Collected 03/12/2025 10:43 Status: Final result Dx: [...] developed by and are performed at the [facility], [address] [place] [address]. All tests reported here, except those addressing [...] Appointment PAV CC Radiation [address] [id number] [place] [address] Marci Gonzalez APRN [address] [place] [address] documented as of this encounter [...] documented as of this encounter Care Teams Human Resources Hr Representative Relationship Specialty Start Date End Date Comfort Siddiqi APRN [address] [place] [address] PCP - General 03/12/25 Km Wooten MD 800 [facility] [address] [place] [address] Consulting Physician Radiation Oncology 02/14/25 documented as of this encounter
--- OUTSIDE RECORDS SUMMARY | 2025-03-18 08:34 | XMS_ITS | Encounter Summary ---
Author Organization [facility] Address [address] [id number] Care Team Providers Care Cheesemaking Laborer Name Role Phone Km Wooten MD Unavailable [phone] Comfort Siddiqi APRN Primary Care Provider [phone] Encounter Details Date Type Department Care Team (Latest Contact Info) Description 03/18/2025 8:34 AM EDT - 03/18/2025 11:59 PM EDT Hospital Encounter PAV CC Radiation [address] [id number] [place] [address] Discharge Disposition: Still a Patient Social History [...] PM EST Appointment PAV CC Radiation 800 [facility] [id number] [place] [address] Marci Gonzalez APRN [address] [place] [address] documented as of this encounter Goals [...] documented as of this encounter Care Teams Cheesemaking Laborer Relationship Specialty Start Date End Date Comfort Siddiqi APRN [address] [place] [address] PCP - General 03/12/25 Km Wooten MD [address] [place] [address] Consulting Physician Radiation Oncology 02/14/25 documented as of this encounter
--- OUTSIDE RECORDS SUMMARY | 2025-03-21 13:48 | XMS_ITS | Encounter Summary ---
Author Organization [facility] Address [address] [place] [address] Care Team Providers Care Laborer Hide House Name Role Phone Km Wooten MD Unavailable [phone] Comfort Siddiqi APRN Primary Care Provider [phone] Encounter Details Date Type Department Care Team (Latest Contact Info) Description 03/21/2025 1:48 PM EDT - 03/21/2025 2:11 PM EDT Hospital Encounter [facility] [address] VM021K [place] [address] Km Wooten MD [address] Buzz C114D [place] [address] Discharge Disposition: Still a Patient Social History [...] Appointment [facility] [address] [id number] [place] [address] Marci Gonzalez APRN [address] C114D [place] [address] documented as of this encounter Goals Goal [...] documented as of this encounter Care Teams Laborer Hide House Relationship Specialty Start Date End Date Comfort Siddiqi APRN [address] [place] [address] PCP - General 03/12/25 Km Wooten MD [address] [address] Consulting Physician Radiation Oncology 02/14/25 documented as of this encounter
--- OUTSIDE RECORDS SUMMARY | 2025-03-21 14:12 | XMS_ITS | Encounter Summary ---
Author Organization [facility] Address [address] [place] [id number] Care Team Providers Care Car Record Clerk Name Role Phone Km Wooten MD Unavailable [phone] Comfort Siddiqi APRN Primary Care Provider [phone] Reason for Visit * Reason Comments OTV Encounter Details Date Type Department Care Team (Latest Contact Info) Description 03/21/2025 2:12 PM EDT - 03/21/2025 11:59 PM EDT Hospital Encounter [facility] [address] [id number] [place] [address] Km Wooten MD [address] Buzz C114D [place] [address] Malignant neoplasm of rectum (CMS/HCC) (Primary Dx) [...] PM EST Appointment [facility] 800 [facility]. [id number] [place] [address] Marci Gonzalez, BALANCE SCREWHEAD POLISHER 800 [facility] Buzz C[address] [place] [address] documented as of this encounter Goals Goal [...] documented as of this encounter Care Teams Car Record Clerk Relationship Specialty Start Date End Date Comfort Siddiqi APRN [address] [place] [address] PCP - General 03/12/25 Km Wooten MD [address] [place] [address] Consulting Physician Radiation Oncology 02/14/25 documented as of this encounter
--- OUTSIDE RECORDS SUMMARY | 2025-03-22 13:49 | XMS_ITS | Encounter Summary ---
Author Organization Healthcare Address [address] [id number] Care Team Providers Care Low Pressure Firer Name Role Phone Km Wooten MD Unavailable [phone] Comfort Siddiqi APRN Primary Care Provider [phone] Encounter Details Date Type Department Care Team (Latest Contact Info) Description 03/22/2025 1:49 PM EDT - 03/22/2025 11:59 PM EDT Hospital Encounter [facility] [address] [id number] [place] [address] Discharge Disposition: Still a Patient Social History [...] PM EST Appointment [facility] Radiation 800 [facility]. [id number] [place] [address] Marci Gonzalez APRN [address] [place] [address] documented as of this encounter Goals [...] documented as of this encounter Care Teams Low Pressure Firer Relationship Specialty Start Date End Date Comfort Siddiqi APRN [address] [place] [address] PCP - General 03/12/25 Km Wooten MD [address] [place] [address] Consulting Physician Radiation Oncology 02/14/25 documented as of this encounter
--- OUTSIDE RECORDS SUMMARY | 2025-03-25 05:30 | XMS_ITS | Encounter Summary ---
Author Organization Healthcare Address [address] [id number] Care Team Providers Care Sanitarian Aide Name Role Phone Km Wooten MD Unavailable [phone] Comfort Siddiqi APRN Primary Care Provider [phone] Encounter Details Date Type Department Care Team (Latest Contact Info) Description 03/25/2025 5:30 AM EDT - 03/25/2025 1:34 PM EDT Hospital Encounter [facility] [address] [id number] [place] [address] Discharge Disposition: Still a Patient Social History [...] PM EST Appointment [facility] 800 [facility] [id number] [place] [address] Marci Gonzalez APRN [address] [place] [address] documented as of this encounter Goals [...] documented as of this encounter Care Teams Sanitarian Aide Relationship Specialty Start Date End Date Comfort Siddiqi APRN [address] [place] [address] PCP - General 03/12/25 Km Wooten MD [address] [place] [address] Consulting Physician Radiation Oncology 02/14/25 documented as of this encounter
--- OUTSIDE RECORDS SUMMARY | 2025-03-25 13:35 | XMS_ITS | Encounter Summary ---
Author Organization Healthcare Address [address] [id number] Care Team Providers Care Laydown Machine Operator Name Role Phone Km Wooten MD Unavailable [phone] Comfort Siddiqi APRN Primary Care Provider Encounter Details Date Type Department Care Team (Latest Contact Info) Description 03/25/2025 1:35 PM EDT - 03/25/2025 11:59 PM EDT Hospital Encounter [facility] [address] [id number] [place] [address] Discharge Disposition: Still a Patient Social History [...] EST Appointment [facility] [address] [facility]. [id number] [place] [address] Marci Gonzalez APRN [address] [place] [phone] documented as of this encounter Goals [...] documented as of this encounter Care Teams Laydown Machine Operator Relationship Specialty Start Date End Date Comfort Siddiqi APRN [address] [place] [address] PCP - General 03/12/25 Km Wooten MD [address] [place] [address] Consulting Physician Radiation Oncology 02/14/25 documented as of this encounter
--- OUTSIDE RECORDS SUMMARY | 2025-03-26 13:30 | XMS_ITS | Encounter Summary ---
Author Organization Healthcare Address [address] [id number] Care Team Providers Care Control Center Operator Name Role Phone Km Wooten MD Unavailable [phone] Comfort Siddiqi APRN Primary Care Provider [phone] Encounter Details Date Type Department Care Team (Latest Contact Info) Description 03/26/2025 1:30 PM EDT - 03/26/2025 11:59 PM EDT Hospital Encounter [facility] [address] [id number] [place] [address] Discharge Disposition: Still a Patient Social History [...] PM EST Appointment [facility] 800 [facility]. [id number] [place] [address] Marci Gonzalez APRN [address] [place] [address] documented as of this encounter Goals [...] documented as of this encounter Care Teams Control Center Operator Relationship Specialty Start Date End Date Comfort Siddiqi APRN [address] [place] [address] PCP - General 03/12/25 Km Wooten MD [address] [place] [address] Consulting Physician Radiation Oncology 02/14/25 documented as of this encounter
--- OUTSIDE RECORDS SUMMARY | 2025-03-27 13:38 | XMS_ITS | Encounter Summary ---
Author Organization Healthcare Address [address] [id number] Care Team Providers Care Sub Acute Care Nurse Name Role Phone Km Wooten MD Unavailable [phone] Comfort Siddiqi APRN Primary Care Provider [phone] Encounter Details Date Type Department Care Team (Latest Contact Info) Description 03/27/2025 1:38 PM EDT - 03/27/2025 11:59 PM EDT Hospital Encounter [facility] [id number] [place] [address] Discharge Disposition: Still a Patient Social History [...] Appointment [facility] 800 [facility]. [id number] [place] [address] Marci Gonzalez APRN [address] [place] [address] documented as of this encounter Goals [...] documented as of this encounter Care Teams Sub Acute Care Nurse Relationship Specialty Start Date End Date Comfort Siddiqi APRN [address] [place] [address] PCP - General 03/12/25 Km Wooten MD [address] [place] [address] Consulting Physician Radiation Oncology 02/14/25 documented as of this encounter
--- OUTSIDE RECORDS SUMMARY | 2025-03-28 13:37 | XMS_ITS | Encounter Summary ---
Author Organization Healthcare Address [address] [id number] Care Team Providers Care Packaging Sales Representative Name Role Phone Km Wooten MD Unavailable [phone] Comfort Siddiqi APRN Primary Care Provider [phone] Encounter Details Date Type Department Care Team (Latest Contact Info) Description 03/28/2025 1:37 PM EDT - 03/28/2025 1:53 PM EDT Hospital Encounter [facility] Rad[facility] [address] [id number] [place] [address] Discharge Disposition: Still a Patient Social History [...] EST Appointment [facility] Rad[facility] [address] [facility]. AT[address]S [place] [address] Marci Gonzalez APRN [address] [place] [address] documented as of this encounter Goals [...] documented as of this encounter Care Teams Packaging Sales Representative Relationship Specialty Start Date End Date Comfort Siddiqi APRN [address] [place] [address] PCP - General 03/12/25 Km Wooten MD [address] [place] [address] Consulting Physician Radiation Oncology 02/14/25 documented as of this encounter
--- OUTSIDE RECORDS SUMMARY | 2025-03-28 13:54 | XMS_ITS | Encounter Summary ---
Author Organization [facility] Address [address] [id number] Care Team Providers Care Gage Designer Name Role Phone Km Wooten MD Unavailable [phone] Comfort Siddiqi APRN Primary Care Provider [phone] Reason for Visit * Reason Comments OTV Encounter Details Date Type Department Care Team (Latest Contact Info) Description 03/28/2025 1:54 PM EDT - 03/28/2025 11:59 PM EDT Hospital Encounter [facility] [address] [id number] [place] [address] Km Wooten MD [address] [place] [address] Malignant neoplasm of rectum (CMS/HCC) (Primary Dx) [...] Tripp is a 55 y.o. male with [id number] lower rectal adenocarcinoma receiving induction chemoradiation Radiation [...] radiation therapy as planned. Km Wooten MD Chief Accounting Officer [facility] Department [place] [address] documented in this encounter Plan of Treatment Upcoming Encounters Date Type Department Care Team (Late st Contact Info) Description 05/27/2025 2:20 PM EST Appointment [facility] CC Radiation 800 [facility]. [id number] [place] [phone] Marci Gonzalez, JOURNEYMAN WIREMAN 800 [facility] [address] [place] [address] documented as of this encounter Goals Goal [...] documented as of this encounter Care Teams Gage Designer Relationship Specialty Start Date End Date Comfort Siddiqi APRN [address] [place] [address] PCP - General 03/12/25 Km Wooten MD [address] [place] [phone] Consulting Physician Radiation Oncology 02/14/25 documented as of this encounter
--- OUTSIDE RECORDS SUMMARY | 2025-03-29 13:25 | XMS_ITS | Encounter Summary ---
Author Organization [facility] Address [address] [id number] Care Team Providers Care Etl Informatica Architect Name Role Phone Km Wooten MD Unavailable Comfort Siddiqi APRN Primary Care Provider [phone] Encounter Details Date Type Department Care Team (Latest Contact Info) Description 03/29/2025 1:25 PM EDT - 03/29/2025 11:59 PM EDT Hospital Encounter [facility] [address] [id number] [place] [address] Discharge Disposition: Still a Patient Social History [...] PM EST Appointment [facility] [address] [id number] [place] [address] Marci Gonzalez APRN [address] [place] [address] documented as of this encounter Goals Goal [...] documented as of this encounter Care Teams Etl Informatica Architect Relationship Specialty Start Date End Date Comfort Siddiqi APRN [address] [place] [address] PCP - General 03/12/25 Km Wooten MD [address] [address] Consulting Physician Radiation Oncology 02/14/25 documented as of this encounter
--- OUTSIDE RECORDS SUMMARY | 2025-04-01 05:30 | XMS_ITS | Encounter Summary ---
Author Organization [facility] Address [address] [id number] Care Team Providers Care Emergency Room Orderly Name Role Phone Km Wooten MD Unavailable [phone] Comfort Siddiqi APRN Primary Care Provider [phone] Encounter Details Date Type Department Care Team (Latest Contact Info) Description 04/01/2025 5:30 AM EDT - 04/01/2025 1:40 PM EDT Hospital Encounter [facility] [address] [id number] [place] [address] Discharge Disposition: Still a Patient Social History [...] PM EST Appointment [facility] [address] [id number] [place] [address] Marci Gonzalez APRN [address] [place] [address] documented as of this encounter Goals Goal [...] documented as of this encounter Care Teams Emergency Room Orderly Relationship Specialty Start Date End Date Comfort Siddiqi APRN [address] [place] [address] PCP - General 03/12/25 Km Wooten MD [address] [address] Consulting Physician Radiation Oncology 02/14/25 documented as of this encounter
--- OUTSIDE RECORDS SUMMARY | 2025-04-01 13:41 | XMS_ITS | Encounter Summary ---
Author Organization Healthcare Address [address] [id number] Care Team Providers Care Fur Feeder Name Role Phone Km Wooten MD Unavailable [phone] Comfort Siddiqi APRN Primary Care Provider [phone] Encounter Details Date Type Department Care Team (Latest Contact Info) Description 04/01/2025 1:41 PM EDT - 04/01/2025 11:59 PM EDT Hospital Encounter [facility] [address] [id number] [place] [address] Discharge Disposition: Still a Patient Social History [...] PM EST Appointment [facility] [address] [id number] [place] [address] Marci Gonzalez APRN [address] [place] [address] documented as of this encounter Goals Goal [...] documented as of this encounter Care Teams Fur Feeder Relationship Specialty Start Date End Date Comfort Siddiqi APRN [address] [place] [address] PCP - General 03/12/25 Km Wooten MD [address] [address] Consulting Physician Radiation Oncology 02/14/25 documented as of this encounter
--- OUTSIDE RECORDS SUMMARY | 2025-04-02 13:58 | XMS_ITS | Encounter Summary ---
Author Organization [facility] Address [address] [id number] Care Team Providers Care Certification Engineer Name Role Phone Km Wooten MD Unavailable [phone] Comfort Siddiqi APRN Primary Care Provider [phone] Encounter Details Date Type Department Care Team (Latest Contact Info) Description 04/02/2025 1:58 PM EDT - 04/02/2025 11:59 PM EDT Hospital Encounter [facility] [address] [id number] [place] [address] Discharge Disposition: Still a Patient Social History [...] PM EST Appointment [facility] [address] [id number] [place] [address] Marci Gonzalez APRN [address] [place] [address] documented as of this encounter Goals Goal [...] documented as of this encounter Care Teams Certification Engineer Relationship Specialty Start Date End Date Comfort Siddiqi APRN [address] [place] [address] PCP - General 03/12/25 Km Wooten MD [address] [address] Consulting Physician Radiation Oncology 02/14/25 documented as of this encounter
--- OUTSIDE RECORDS SUMMARY | 2025-04-03 13:29 | XMS_ITS | Encounter Summary ---
Author Organization Healthcare Address [address] [id number] Care Team Providers Care Clinical Program Director Name Role Phone Km Wooten MD Unavailable [phone] Comfort Siddiqi APRN Primary Care Provider [phone] Encounter Details Date Type Department Care Team (Latest Contact Info) Description 04/03/2025 1:29 PM EDT - 04/03/2025 11:59 PM EDT Hospital Encounter [facility] [address] AE255S [place] [address] Discharge Disposition: Still a Patient Social History [...] PM EST Appointment [facility] [address] [id number] [place] [address] Marci Gonzalez APRN [address] [place] [address] documented as of this encounter Goals Goal [...] documented as of this encounter Care Teams Clinical Program Director Relationship Specialty Start Date End Date Comfort Sdidiqi APRN [address] [place] [address] PCP - General 03/12/25 Km Wooten MD [address] [address] Consulting Physician Radiation Oncology 02/14/25 documented as of this encounter
--- OUTSIDE RECORDS SUMMARY | 2025-04-04 13:47 | XMS_ITS | Encounter Summary ---
Author Organization Healthcare Address [address] [id number] Care Team Providers Care Gum Rolling Machine Operator Name Role Phone Km Wooten MD Unavailable Comfort Siddiqi APRN Primary Care Provider [phone] Encounter Details Date Type Department Care Team (Latest Contact Info) Description 04/04/2025 1:47 PM EDT - 04/04/2025 1:52 PM EDT Hospital Encounter [facility] [address] [id number] [place] [address] Discharge Disposition: Still a Patient Social History [...] PM EST Appointment [facility] [address] [id number] [place] [address] Marci Gonzalez APRN [address] [place] [address] documented as of this encounter Goals Goal [...] documented as of this encounter Care Teams Gum Rolling Machine Operator Relationship Specialty Start Date End Date Comfort Siddiqi APRN [address] [place] [address] PCP - General 03/12/25 Km Wooten MD [address] [address] Consulting Physician Radiation Oncology 02/14/25 documented as of this encounter
--- OUTSIDE RECORDS SUMMARY | 2025-04-04 13:53 | XMS_ITS | Encounter Summary ---
Author Organization [facility] Address [address] [id number] Care Team Providers Care Dental Equipment Mechanic Name Role Phone Km Wooten MD Unavailable [phone] Comfort Siddiqi APRN Primary Care Provider [phone] Reason for Visit * Reason Comments OTV Encounter Details Date Type Department Care Team (Latest Contact Info) Description 04/04/2025 1:53 PM EDT - 04/04/2025 11:59 PM EDT Hospital Encounter [facility] [address] [id number] [place] [address] Nancy Stanley MD [address] C114D [place] [address] Malignant neoplasm of rectum (CMS/HCC) (Primary Dx) [...] Tripp is a 55 y.o. male with [id number] lower rectal adenocarcinoma receiving induction chemoradiation Radiation [...] PGY-3 Resident Physician, Radiation Oncology [facility] Pager: [phone] \ Cosigned by Nancy Stanley MD at [...] PM EST Appointment [facility] [address] [facility] [id number] [place] [address] Marci Gonzalez, TARUN [address] 488544D [place] [address] documented as of this encounter [...] as of this encounter Care Teams Dental Equipment Mechanic Relationship Specialty Start Date End Date Comfort Siddiqi APRN [address] [place] [address] PCP - General 03/12/25 Km Wooten MD [address] 488544D [place] [address] Consulting Physician Radiation Oncology 02/14/25 documented as of this encounter
--- OUTSIDE RECORDS SUMMARY | 2025-04-05 14:06 | XMS_ITS | Encounter Summary ---
Author Organization Healthcare Address [address] [id number] Care Team Providers Care Supervisor Aircraft Maintenance Name Role Phone Km Wooten MD Unavailable [phone] Comfort Siddiqi APRN Primary Care Provider [phone] Encounter Details Date Type Department Care Team (Latest Contact Info) Description 04/05/2025 2:06 PM EDT - 04/05/2025 11:59 PM EDT Hospital Encounter [facility] [address] [id number] [place] [address] Discharge Disposition: Still a Patient Social History [...] PM EST Appointment [facility] [address] [id number] [place] [address] Marci Gonzalez APRN [address]114[address] [place] [address] documented as of this encounter Goals Goal [...] as of this encounter Care Teams Supervisor Aircraft Maintenance Relationship Specialty Start Date End Date Comfort Siddiqi APRN [address] [place] [address] PCP - General 03/12/25 Km Wooten MD [address] [address] Consulting Physician Radiation Oncology 02/14/25 documented as of this encounter
--- OUTSIDE RECORDS SUMMARY | 2025-04-08 05:30 | XMS_ITS | Encounter Summary ---
Author Organization Healthcare Address [address] [id number] Care Team Providers Care Sewing Trimmer Name Role Phone Km Wooten MD Unavailable [phone] Comfort Siddiqi APRN Primary Care Provider [phone] Encounter Details Date Type Department Care Team (Latest Contact Info) Description 04/08/2025 5:30 AM EDT - 04/08/2025 1:37 PM EDT Hospital Encounter [facility] [address] [id number] [place] [address] Discharge Disposition: Still a Patient Social History [...] PM EST Appointment [facility] [address] [place] [id number] [place] [address] Marci Gonzalez APRN [address] [place] [address] documented as of this encounter Goals Goal [...] documented as of this encounter Care Teams Sewing Trimmer Relationship Specialty Start Date End Date Comfort Siddiqi APRN [address] [place] [address] PCP - General 03/12/25 Km Wooten MD [address] [address] Consulting Physician Radiation Oncology 02/14/25 documented as of this encounter
--- OUTSIDE RECORDS SUMMARY | 2025-04-08 13:38 | XMS_ITS | Encounter Summary ---
Author Organization Healthcare Address [address] [id number] Care Team Providers Care Service Car Driver Name Role Phone Km Wooten MD Unavailable [phone] Comfort Siddiqi APRN Primary Care Provider [phone] Encounter Details Date Type Department Care Team (Latest Contact Info) Description 04/08/2025 1:38 PM EDT - 04/08/2025 11:59 PM EDT Hospital Encounter [facility] [address] [id number] [place] [address] Discharge Disposition: Still a Patient Social History [...] PM EST Appointment [facility] [id number] [place] [address] Marci Gonzalez APRN [address] [place] [address] documented as of this encounter Goals Goal [...] as of this encounter Care Teams Service Car Driver Relationship Specialty Start Date End Date Comfort Siddiqi APRN [address] [place] [address] PCP - General 03/12/25 Km Wooten MD [address] [address] Consulting Physician Radiation Oncology 02/14/25 documented as of this encounter
--- OUTSIDE RECORDS SUMMARY | 2025-04-09 13:45 | XMS_ITS | Encounter Summary ---
Author Organization Healthcare Address [address] [id number] Care Team Providers Care Frog Or Oyster Farmworker Name Role Phone Km Wooten MD Unavailable [phone] Comfort Siddiqi APRN Primary Care Provider [phone] Encounter Details Date Type Department Care Team (Latest Contact Info) Description 04/09/2025 1:45 PM EDT - 04/09/2025 11:59 PM EDT Hospital Encounter [facility] [address] [id number] [place] [address] Discharge Disposition: Still a Patient Social History [...] PM EST Appointment [facility] [id number] [place] [address] Marci Gonzalez APRN [address] [place] [address] documented as of this encounter Goals Goal [...] documented as of this encounter Care Teams Frog Or Oyster Farmworker Relationship Specialty Start Date End Date Comfort Siddiqi APRN [address] [place] [address] PCP - General 03/12/25 Km Wooten MD [address] [address] Consulting Physician Radiation Oncology 02/14/25 documented as of this encounter
--- OUTSIDE RECORDS SUMMARY | 2025-04-10 13:31 | XMS_ITS | Encounter Summary ---
Author Organization [facility] Address [address] [id number] Care Team Providers Care Timber Rider Name Role Phone Km Wooten MD Unavailable [phone] Comfort Siddiqi APRN Primary Care Provider [phone] Encounter Details Date Type Department Care Team (Latest Contact Info) Description 04/10/2025 1:31 PM EDT - 04/10/2025 11:59 PM EDT Hospital Encounter [facility] Radiation [address] ZF125G [place] [address] Discharge Disposition: Still a Patient Social History [...] PM EST Appointment [facility] Radiation [address] [place] [address] Marci Gonzalez APRN [address] [place] [address] documented as of this encounter Goals Goal [...] documented as of this encounter Care Teams Timber Rider Relationship Specialty Start Date End Date Comfort Siddiqi APRN [address] [place] [address] PCP - General 03/12/25 Km Wooten MD [address] [address] Consulting Physician Radiation Oncology 02/14/25 documented as of this encounter
--- OUTSIDE RECORDS SUMMARY | 2025-04-11 13:31 | XMS_ITS | Encounter Summary ---
Author Organization [facility] Address [address] [id number] Care Team Providers Care Physical Education Aide Name Role Phone Km Wooten MD Unavailable [phone] Comfort Siddiqi APRN Primary Care Provider [phone] Encounter Details Date Type Department Care Team (Latest Contact Info) Description 04/11/2025 1:31 PM EDT - 04/11/2025 1:49 PM EDT Hospital Encounter [facility] [address] [id number] [place] [address] Discharge Disposition: Still a Patient Social History [...] PM EST Appointment [facility] [address] [id number] [place] [address] Marci Gonzalez APRN [address] [place] [address] documented as of this encounter Goals Goal [...] documented as of this encounter Care Teams Physical Education Aide Relationship Specialty Start Date End Date Comfort Siddiqi APRN [address] [place] [address] PCP - General 03/12/25 Km Wooten MD [address] [address] Consulting Physician Radiation Oncology 02/14/25 documented as of this encounter
--- OUTSIDE RECORDS SUMMARY | 2025-04-11 13:50 | XMS_ITS | Encounter Summary ---
Author Organization [facility] Address [address] [id number] Care Team Providers Care Ediscovery Project Manager Name Role Phone Km Wooten MD Unavailable [phone] Comfort Siddiqi APRN Primary Care Provider [phone] Reason for Visit * Reason Comments OTV Encounter Details Date Type Department Care Team (Latest Contact Info) Description 04/11/2025 1:50 PM EDT - 04/11/2025 11:59 PM EDT Hospital Encounter [facility] [address] [id number] [place] [address] Km Wooten MD [address] [place] [address] Malignant neoplasm of rectum (CMS/HCC) (Primary Dx) [...] Tripp is a 55 y.o. male with [id number] lower rectal adenocarcinoma receiving induction chemoradiation Radiation [...] Randolph MD, PGY-3 Resident Physician, Radiation Oncology [facility] Pager: [phone] Cosigned by Km Wooten MD at 04/11/2025 [...] PM EST Appointment [facility] [address] [id number] [place] [address] Marci Gonzalez, ASIC ENGINEER 800 [facility] [address] [place] [address] documented as of this encounter [...] documented as of this encounter Care Teams Ediscovery Project Manager Relationship Specialty Start Date End Date Comfort Siddiqi APRN [address] [place] [address] PCP - General 03/12/25 Km Wooten MD [address] [place] [phone] Consulting Physician Radiation Oncology 02/14/25 documented as of this encounter
--- OUTSIDE RECORDS SUMMARY | 2025-04-12 13:42 | XMS_ITS | Encounter Summary ---
Author Organization [facility] Address [address] [id number] Care Team Providers Care Bank Boss Name Role Phone Km Wooten MD Unavailable [phone] Comfort Siddiqi APRN Primary Care Provider [phone] Encounter Details Date Type Department Care Team (Latest Contact Info) Description 04/12/2025 1:42 PM EDT - 04/12/2025 11:59 PM EDT Hospital Encounter [facility] [address] [id number] [place] [address] Discharge Disposition: Still a Patient Social History [...] PM EST Appointment [facility] [address] [id number] [place] [address] Marci Gonzalez APRN [address] [place] [address] documented as of this encounter Goals Goal [...] documented as of this encounter Care Teams Bank Boss Relationship Specialty Start Date End Date Comfort Siddiqi APRN [address] [place] [address] PCP - General 03/12/25 Km Wooten MD [address] [address] Consulting Physician Radiation Oncology 02/14/25 documented as of this encounter
--- OUTSIDE RECORDS SUMMARY | 2025-04-15 08:33 | XMS_ITS | Encounter Summary ---
Author Organization Healthcare Address [address] [id number] Care Team Providers Care Food Safety Technician Name Role Phone Km Wooten MD Unavailable [phone] Comfort Siddiqi APRN Primary Care Provider [phone] Encounter Details Date Type Department Care Team (Latest Contact Info) Description 04/15/2025 8:33 AM EDT - 04/15/2025 1:26 PM EDT Hospital Encounter [facility] [address] [id number] [place] [address] Discharge Disposition: Still a Patient Social History [...] PM EST Appointment [facility] [address] [id number] [place] [address] Marci Gonzalez APRN [address] [place] [address] documented as of this encounter Goals Goal [...] as of this encounter Care Teams Food Safety Technician Relationship Specialty Start Date End Date Comfort Siddiqi APRN [address] [place] [address] PCP - General 03/12/25 Km Wooten MD [address] [address] Consulting Physician Radiation Oncology 02/14/25 documented as of this encounter
--- OUTSIDE RECORDS SUMMARY | 2025-04-15 13:27 | XMS_ITS | Encounter Summary ---
Author Organization Healthcare Address [address] [id number] Care Team Providers Care Community Theater Actor Name Role Phone Km Wooten MD Unavailable [phone] Comfort Siddiqi APRN Primary Care Provider [phone] Encounter Details Date Type Department Care Team (Latest Contact Info) Description 04/15/2025 1:27 PM EDT - 04/15/2025 11:59 PM EDT Hospital Encounter [facility] [address] KY503C [place] [address] Discharge Disposition: Still a Patient Social History [...] PM EST Appointment [facility] [address] [id number] [place] [address] Marci Gonzalez APRN [address] [place] [address] documented as of this encounter Goals Goal [...] as of this encounter Care Teams Community Theater Actor Relationship Specialty Start Date End Date Comfort Siddiqi APRN [address] [place] [address] PCP - General 03/12/25 Km Wooten MD [address] [address] Consulting Physician Radiation Oncology 02/14/25 documented as of this encounter
--- OUTSIDE RECORDS SUMMARY | 2025-04-16 13:28 | XMS_ITS | Encounter Summary ---
Author Organization Healthcare Address [address] [id number] Care Team Providers Care Candlemaker Name Role Phone Km Wooten MD Unavailable [phone] Comfort Siddiqi APRN Primary Care Provider [phone] Encounter Details Date Type Department Care Team (Latest Contact Info) Description 04/16/2025 1:28 PM EDT - 04/16/2025 11:59 PM EDT Hospital Encounter [facility] [address] [id number] [place] [address] Discharge Disposition: Still a Patient Social History [...] PM EST Appointment [facility] [address] [id number] [place] [address] Marci Gonzalez APRN [address] [place] [address] documented as of this encounter Goals Goal [...] documented as of this encounter Care Teams Candlemaker Relationship Specialty Start Date End Date Comfort Siddiqi APRN [address] [place] [address] PCP - General 03/12/25 Km Wooten MD [address] [address] Consulting Physician Radiation Oncology 02/14/25 documented as of this encounter
--- OUTSIDE RECORDS SUMMARY | 2025-04-17 13:52 | XMS_ITS | Encounter Summary ---
Author Organization Healthcare Address [address] [id number] Care Team Providers Care Electrical And Electronic Assembler Name Role Phone Km Wooten MD Unavailable [phone] Comfort Siddiqi APRN Primary Care Provider [phone] Encounter Details Date Type Department Care Team (Latest Contact Info) Description 04/17/2025 1:52 PM EDT - 04/17/2025 11:59 PM EDT Hospital Encounter [facility] [address] [id number] [place] [address] Discharge Disposition: Still a Patient Social History [...] PM EST Appointment [facility] [address] [id number] [place] [address] Marci Gonzalez APRN [address] [place] [address] documented as of this encounter Goals Goal [...] as of this encounter Care Teams Electrical And Electronic Assembler Relationship Specialty Start Date End Date Comfort Siddiqi APRN [address] [place] [address] PCP - General 03/12/25 Km Wooten MD [address] [address] Consulting Physician Radiation Oncology 02/14/25 documented as of this encounter
--- OUTSIDE RECORDS SUMMARY | 2025-04-18 13:36 | XMS_ITS | Encounter Summary ---
Author Organization [facility] Address [address] [place] [id number] Care Team Providers Care Bridge Welder Name Role Phone Km Wooten MD Unavailable [phone] Comfort Siddiqi APRN Primary Care Provider [phone] Encounter Details Date Type Department Care Team (Late st Contact Info) Description 04/18/2025 1:36 PM EDT Hospital Encounter [facility] Radiation [address] [id number] [place] [address] Social History Tobacco Use Types Packs/Day Years [...] PM EST Appointment P[facility] CC Radiation 800 [facility] [id number] [place] [address] Marci Gonzalez, DWARF TREE GROWER [address] [address] documented as of this encounter [...] documented as of this encounter Care Teams Bridge Welder Relationship Specialty Start Date End Date Comfort Siddiqi, DWARF TREE GROWER [address] [place] [address] PCP - General 03/12/25 Km Wooten MD [address] [phone] Consulting Physician Radiation Oncology 02/14/25 documented as of this encounter
--- OUTSIDE RECORDS SUMMARY | 2025-04-18 14:03 | XMS_ITS | Encounter Summary ---
Author Organization [facility] Address [address] [place] [address] Care Team Providers Care Sheriff Sergeant Name Role Phone Km Wooten MD Unavailable [phone] Comfort Siddiqi APRN Primary Care Provider [phone] Reason for Visit * Reason Comments OTV Encounter Details Date Type Department Care Team (Latest Contact Info) Description 04/18/2025 2:03 PM EDT Hospital Encounter [facility] [address] [id number] [place] [address] Km Wooten MD [address] [place] [address] Malignant neoplasm of rectum (CMS/HCC) (Primary Dx) [...] Tripp is a 55 y.o. male with [id number] lower rectal adenocarcinoma receiving induction chemoradiation Radiation [...] Randolph MD, PGY-3 Resident Physician, Radiation Oncology [facility] Pager: [phone] Cosigned by Km Wooten MD at 04/18/2025 [...] Appointment [facility] [address] [id number] [place] [address] Marci Gonzalez, FORM RAISER [address] [place] [address] documented as of this encounter Goals Goal [...] documented as of this encounter Care Teams Sheriff Sergeant Relationship Specialty Start Date End Date Comfort Siddiqi APRN [address] [place] [address] PCP - General 03/12/25 Km Wooten MD [address] [place] [address] Consulting Physician Radiation Oncology 02/14/25 documented as of this encounter
--- OUTSIDE RECORDS SUMMARY | 2025-04-19 13:42 | XMS_ITS | Encounter Summary ---
Author Organization Healthcare Address [address] [id number] Care Team Providers Care Elderly Sitter Name Role Phone Km Wooten MD Unavailable [phone] Comfort Siddiqi APRN Primary Care Provider [phone] Encounter Details Date Type Department Care Team (Late st Contact Info) Description 04/19/2025 1:42 PM EDT Hospital Encounter [facility] [address] [id number] [place] [address] Social History Tobacco Use Types Packs/Day Years [...] Department Care Team (Late Contact Info) Description 05/27/2025 2:20 PM EST Appointment [facility] [address] [facility] [address]L [place] [address] Marci Gonzalez, DIRECTOR SEARCH [address] [address] documented as of this encounter [...] documented as of this encounter Care Teams Elderly Sitter Relationship Specialty Start Date End Date Comfort Siddiqi, DIRECTOR SEARCH [address] [place] [address] PCP - General 03/12/25 Km Wooten MD [address] [address] Consulting Physician Radiation Oncology 02/14/25 documented as of this encounter
--- OUTSIDE RECORDS SUMMARY | 2025-04-22 08:10 | XMS_ITS | Encounter Summary ---
Author Organization Healthcare Address [address] [id number] Care Team Providers Care Head Of Measurement & Insights Name Role Phone Km Wooten MD Unavailable [phone] Comfort Siddiqi APRN Primary Care Provider [phone] Encounter Details Date Type Department Care Team (Late Contact Info) Description 04/22/2025 8:10 AM EDT Hospital Encounter [facility] [address] [id number] [place] [address] Arrived Social History Tobacco Use Types Packs/Day [...] PM EST Appointment [facility] Radiation 800 [facility] [id number] [place] [address] Marci Gonzalez, DEXIGRAPH OPERATOR [address] [address] documented as of this encounter Goals Goal [...] of this encounter Care Teams Head Of Measurement & Insights Relationship Specialty Start Date End Date Comfort Siddiqi, DEXIGRAPH OPERATOR [address] [place] [address] PCP - General 03/12/25 Km Wooten MD [address] [address] Consulting Physician Radiation Oncology 02/14/25 documented as of this encounter
--- OUTSIDE RECORDS SUMMARY | 2025-04-22 13:40 | XMS_ITS | Encounter Summary ---
Author Organization Healthcare Address [address] [id number] Care Team Providers Care Plasterer Spray Gun Name Role Phone Km Wooten MD Unavailable [phone] Comfort Siddiqi APRN Primary Care Provider [phone] Encounter Details Date Type Department Care Team (Late st Contact Info) Description 04/22/2025 1:40 PM EDT Hospital Encounter [facility] [address] [id number] [place] [address] Social History Tobacco Use Types Packs/Day Years [...] PM EST Appointment [facility] Radiation 800 [facility] [id number] [place] [address] Marci Gonzalez, PRODUCTION CELL LEADER [address] [address] documented as of this encounter [...] documented as of this encounter Care Teams Plasterer Spray Gun Relationship Specialty Start Date End Date Comfort Siddiqi, PRODUCTION CELL LEADER [address] [place] [address] PCP - General 03/12/25 Km Wooten MD [address] [address] Consulting Physician Radiation Oncology 02/14/25 documented as of this encounter
--- OUTSIDE RECORDS SUMMARY | 2025-04-23 13:48 | XMS_ITS | Encounter Summary ---
Author Organization Healthcare Address [address] [id number] Care Team Providers Care Global Sales Director Name Role Phone Km Wooten MD Unavailable [phone] Comfort Siddiqi APRN Primary Care Provider [phone] Encounter Details Date Type Department Care Team (Late st Contact Info) Description 04/23/2025 1:48 PM EDT Hospital Encounter [facility] [id number] [place] [address] Social History Tobacco Use Types Packs/Day Years [...] EST Appointment [facility] [address] [facility] [id number] [place] [address] Marci Gonzalez, MANUFACTURING MACHINE OPERATOR [address] [address] documented as of this encounter [...] documented as of this encounter Care Teams Global Sales Director Relationship Specialty Start Date End Date Comfort Siddiqi, MANUFACTURING MACHINE OPERATOR [address] [place] [address] PCP - General 03/12/25 Km Wooten MD [address] [phone] Consulting Physician Radiation Oncology 02/14/25 documented as of this encounter
--- OUTSIDE RECORDS SUMMARY | 2025-04-24 13:41 | XMS_ITS | Encounter Summary ---
Author Organization Healthcare Address [address] [id number] Care Team Providers Care Stock Fitter Name Role Phone Km Wooten MD Unavailable [phone] Comfort Siddiqi APRN Primary Care Provider [phone] Encounter Details Date Type Department Care Team (Late st Contact Info) Description 04/24/2025 1:41 PM EDT Hospital Encounter [facility] [id number] [place] [address] Social History Tobacco Use Types Packs/Day Years [...] PM EST Appointment [facility] 800 [facility] [id number] [place] [address] Marci Gonzalez, WEB MARKETING SPECIALIST [address] [address] documented as of this encounter [...] documented as of this encounter Care Teams Stock Fitter Relationship Specialty Start Date End Date Comfort Siddiqi, WEB MARKETING SPECIALIST [address] [place] [address] PCP - General 03/12/25 Km Wooten MD [address] [phone] Consulting Physician Radiation Oncology 02/14/25 documented as of this encounter
--- NOTE | 2025-04-25 10:46 | ED_ITS ---
Discharge Plan Disposition Patient Disposition: Home, Self-Care Prescriptions Prescriptions: New nystatin 100,000 unit/gram cream 1 applic topical BID Qty: 30 0RF No Action capecitabine [Xeloda] 500 mg tablet 2,000 mg PO .COMPLEX 42 Days Qty: 240 0RF Rx Instructions: 2,000 mg orally BID M-F with radiation; must administer with water 30 minutes after a meal Referrals Follow up/Referrals: Comfort Siddiqi APRN [Primary Care Provider, Family Practice] - See instructions Activity Restrictions/Add. Instructions Additional Instructions/Restrictions: Your symptoms are likely caused by a fungal infection. You can apply the nystatin cream to the tip of your penis twice daily until symptoms are resolved. Use the powder on the insides of both legs until symptoms resolved. If the powder does not help, you can try using the cream on the insides of both legs as well. I do encourage you to follow-up with your oncologist. In addition to this you can take Tylenol to help with symptoms. If you develop any new or worsening symptoms, or if you become concerned for your health for any reason, return to the emergency department for evaluation Clinical Impressions Clinical Impression: Balanitis Instructions Patient Instructions: DI for Skin Abscess Print Language Print Language: British Discharge ED Provider: Jt Suarez Adult HPI General Chief complaint: Skin/Abscess/Foreign Body Stated complaint: radiation mariano? Time Seen by Provider: 04/25/25 10:42 History of Present Illness HPI narrative: Carlos Tripp is a 55y male with a history of colon cancer on radiation therapy at [facility] who presents to the emergency department for 2 days of rash and pain to his abdominal and genital region. Patient is reporting irritation and burning pain to the tip of his penis. Patient thinks it is from his radiation exposure. He has been putting baby powder on it for relief, however pain has persisted. He has no other complaints or concerns at this time other than chronic constipation, which has not changed from his baseline. Related Data Previous Rx's ?Medication ?Instructions ?Recorded capecitabine 500 mg tablet (Xeloda) 2,000 mg (4 x 500 mg) PO .COMPLEX 02/26/25 chemotherapy combined with radiation 6 weeks #240 tabs nystatin 100,000 unit/gram topical 1 applic topical BI D #30 grams 04/25/25 cream Allergies Allergy/AdvReac Type Severity Reaction Status Date / Time No Known Allergies Allergy Verified 04/18/25 09:05 [facility] Disclaimer: The information contained in this section may have been updated after the patient was seen, as this information can be updated by other users. 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 Dog bite Wound of abdomen Need for tetanus, diphtheria, and acellular pertussis (Tdap) vaccine Sinusitis Strep throat Encounter for removal of sutures Rectal cancer Hyperlipidemia Surgical History Hx of cholecystectomy Family History Mother H/O heart surgery Father H/O heart surgery Grandfather Diabetes Social History Smoking Status: Never smoker alcohol intake: current alcohol intake frequency: a few times a week substance use type: denies use current occupational status: employed Travel in the last 8 weeks?: None Have you lived/traveled outside US in past 30 days?: No Contact w/someone who lives/traveled outside US past 30 days?: No Exposure to someone with infectious disease in past 14 days?: No Do you have a fever (greater than 100.4 F or 38 C)?: No Have you tested positive for COVID-19?: No Exposed to someone with COVID-19 in past 14 days?: No Do you have a sore throat?: No Do you have a cough?: No Do you have any weakness?: No Do you have any diarrhea?: No Are you experiencing any unusual bleeding?: No Do you have any muscle aches/pain?: No Do you have any abdominal pain?: No Are you experiencing loss of taste or smell?: No ROS Obtained: Yes Systems reviewed as appropriate & no additional complaints except as documented Physical Exam General General appearance: alert and in no apparent distress Head Head exam: atraumatic Eye Eye exam: Present normal appearance ENT ENT exam: Present normal external ear exam Neck Neck exam: Present full ROM Chest Chest inspection: Present symmetric chest wall rise Respiratory Respiratory exam: Present normal lung sounds bilaterally; Absent respiratory distress Cardiovascular Cardiovascular exam: Present regular rate and normal rhythm Abdominal Exam Abdominal exam: Present soft; Absent tenderness or guarding exam: Present normal testicular lie, circumcised and other (Erythema to the glans of the penis but no significant swelling. Some mild erythema to the inguinal folds); Absent urethral discharge or scrotal swelling Extremities Exam Extremities exam: Present normal inspection Back Exam Back exam: Present normal inspection Neurological Exam Neurological exam: Present alert and oriented X3 Psychiatric Psychiatric exam: Present normal affect Skin Skin exam: Present warm and dry Medical Decision Making Medical Records Screening: Per USPSTF and CDC recommendations, given the prevalence of disease in our region, it is our hospital?s policy to screen for HIV and viral Hepatitis for all patients aged 18 and over and those with ongoing risk factors. Georgi Inquiry Pt receiving controlled substance: No Vital Signs: 04/25/25 10:47 04/25/25 10:49 Temperature 98.4 F Temperature Source Oral Pulse Rate 89 Pulse Rate [Right] 64 Respiratory Rate 18 Blood Pressure 160/108 H Blood Pressure [Right Arm] 160/108 H Blood Pressure Mean [Right Arm] 125 02 Sat by Pulse Oximetry 96 100 Oxygen Delivery Method Room Air Lab Data Lab Results 04/25/25 10:50: Urine Color Yellow, Urine Appearance Clear, Urine pH 6.0, Ur Specific Monroe 1.025, Urine Protein Negative, Urine Glucose (UA) Negative, Urine Ketones Negative, Urine Blood Negative, Urine Nitrate Negative, Urine Bilirubin Negative, Urine Urobilinogen 1.0, Ur Leukocyte Esterase Negative Orders (Tests/Meds): ED MEDICATIONS Discontinued Medications Generic Name Dose Route Start Last Admin Trade Name Freq PRN Reason Stop Dose Admin Nystatin 30 gm 04/25/25 10:46 04/25/25 11:11 Nystatin Topical Powder 30gm TP 04/25/25 10:47 1 applic ONCE ONE Administration ORDERS Category Date Time Status UA [Urinalysis and Microscopic] Stat Lab 04/25/25 10:50 Results Medical Decision Narrative: Carlos Tripp is a 55y male with a history of colon cancer on radiation therapy at [facility] who presents to the emergency department for 2 days of rash and pain to his abdominal and genital region. Patient is reporting irritation and burning pain to the tip of his penis. Patient thinks it is from his radiation exposure. He has been putting baby powder on it for relief, however pain has persisted. He has no other complaints or concerns at this time other than chronic constipation, which has not changed from his baseline. On arrival, patient is hypertensive but hemodynamically stable, afebrile. Physical exam, stated above, revealed an overall well-appearing male in no distress. On physical exam with board attendant, he has erythema to the glans of the penis but no evidence of phimosis or paraphimosis. No urethral discharge. Scrotal exam of is unremarkable. He does have some erythema and irritation to the inguinal folds bilaterally. I do feel the patient symptoms are most consistent with candidal balanitis, however will obtain urinary sample to rule out bacterial infection that would warrant antibiotics. Will apply nystatin powder to the area for the time being. Urinalysis demonstrated no evidence of infection. I do not feel that any laboratory or imaging studies are indicated at this time as it would not change ED management. Recommending continuation of nystatin powder and will prescribe nystatin cream for the glans penis. I did encourage him to follow-up with his oncologist if symptoms persisted. Return precautions were given. All questions were answered. He demonstrated understanding and was in agreement this plan. He was then discharged from the emergency department in stable condition. Critical Care Critical Care Time Critical Care Time: No
[2025-04-25 10:47] VITALS: BP 160/108; PULSE 89; O2SAT 96
[2025-04-25 10:49] VITALS: BP 160/108; PULSE 64; RESP 18; TEMP 36.9; O2SAT 100; BMI 44.6
[2025-04-25 11:00] LABS: Microscopic, Urine URINE MICROSCOPIC (MICROSCOPIC)
--- OUTSIDE RECORDS SUMMARY | 2025-04-25 11:08 | XMS_ITS | Encounter Summary ---
Author Organization Healthcare Address [address] [place] [address] Care Team Providers Care Capture Manager Name Role Phone Km Wooten MD Unavailable Comfort Siddiqi APRN Primary Care Provider [phone] Encounter Details Date Type Department Care Team (Late st Contact Info) Description 04/10/2025 Orders Only [facility] [id number] [place] [address] Radiation Oncology, Physician, [address] [place], [place] [id number] Social History Tobacco Use Types Packs/Day Years [...] Appointment [facility] [id number] [place] [address] Marci Gonzalez, ADMISSION LIAISON [address] [place] [address] documented as of this encounter [...] ONCOLOGY Reference Point Dosage Given to Date [id number] Gy ARIA RADIATION ONCOLOGY Reference Point Session Dosage Given [id number] Gy ARIA RADIATION ONCOLOGY Plan ID [id number] [...] documented as of this encounter Care Teams Capture Manager Relationship Specialty Start Date End Date Comfort Siddiqi APRN [address] [place] [address] PCP - General 03/12/25 Km Wooten MD [address] [place] [address] [address] [place] [address] Consulting Physician Radiation Oncology 02/14/25 documented as of this encounter
--- OUTSIDE RECORDS SUMMARY | 2025-04-25 11:08 | XMS_ITS | Encounter Summary ---
Author Organization [facility] Address [address] [place] [address] Care Team Providers Care Automatic Pilot Mechanic Name Role Phone Km Wooten MD Unavailable [phone] Comfort Siddiqi APRN Primary Care Provider [phone] Encounter Details Date Type Department Care Team [...] Appointment [facility] [id number] [place] [address] Marci Gonzalez APRN [address] [address] documented as of this encounter Goals Goal [...] documented as of this encounter Care Teams Automatic Pilot Mechanic Relationship Specialty Start Date End Date Comfort Siddiqi APRN [address] [place] [address] PCP - General 03/12/25 Km Wooten MD [address] [address] Consulting Physician Radiation Oncology 02/14/25 documented as of this encounter
--- OUTSIDE RECORDS SUMMARY | 2025-04-25 11:08 | XMS_ITS | Encounter Summary ---
Author Organization [facility] Address [address] [place] [address] Care Team Providers Care Automobile Locator Name Role Phone Tejal Saeed APRN Primary Care Provider [phone] Km Wooten MD Unavailable [phone] Comfort Siddiqi APRN Primary Care Provider [phone] Encounter Details Date Type Department Care Team (Late st Contact Info) Description 01/08/2025 Orders Only External Location [address] [place] [address] Provider, External Social History Tobacco [...] Appointment [facility] [id number] [place] [address] Marci Gonzalez COMIC BOOK WRITER [address] [place] [address] documented as of this encounter Procedures Procedure [...] on filedocumented in this encounter Care Teams Automobile Locator Relationship Specialty Start Date End Date Tejal Saeed APRN [address] [place], [place] [id number] PCP - General 11/07/20 03/11/25 Comfort Siddiqi APRN [address] [place] [address] PCP - General 03/12/25 Km Wooten MD [address] [phone] Consulting Physician Radiation Oncology 02/14/25 documented as of this encounter
--- OUTSIDE RECORDS SUMMARY | 2025-04-25 11:08 | XMS_ITS | Encounter Summary ---
Author Organization Healthcare Address [address] [place] [address] Care Team Providers Care Signal Engineer Name Role Phone Km Wooten MD Unavailable [phone] Comfort Siddiqi APRN Primary Care Provider [phone] Encounter Details Date Type Department Care Team (Late st Contact Info) Description 04/12/2025 Orders Only [facility] [address] [place] [address] Radiation Oncology, Physician, [address] [place], [place] [id number] Social History Tobacco Use Types Packs/Day Years [...] Appointment [facility] [id number] [place] [address] Marci Gonzalez, NURSING INFORMATION SYSTEMS COORDINATOR [address] [place] [address] documented as of this encounter [...] ONCOLOGY Reference Point Dosage Given to Date [id number] Gy ARIA RADIATION ONCOLOGY Reference Point Session Dosage Given [id number] Gy ARIA RADIATION ONCOLOGY Plan ID [id number] [...] documented as of this encounter Care Teams Signal Engineer Relationship Specialty Start Date End Date Comfort Siddiqi APRN [address] [place] [address] PCP - General 03/12/25 Km Wooten MD [address] [place] [address] [address] [place] [address] Consulting Physician Radiation Oncology 02/14/25 documented as of this encounter
--- OUTSIDE RECORDS SUMMARY | 2025-04-25 11:08 | XMS_ITS | Encounter Summary ---
Author Organization Healthcare Address [address] [place] [address] Care Team Providers Care Accredited Farm Manager Name Role Phone Km Wooten MD Unavailable [phone] Comfort Siddiqi APRN Primary Care Provider [phone] Encounter Details Date Type Department Care Team (Late st Contact Info) Description 04/18/2025 Orders Only [facility] [address] [id number] [place] [address] Radiation Oncology, Physician, [address] [place], [place] [id number] Social History Tobacco Use Types Packs/Day Years [...] Appointment [facility] [address] [id number] [place] [address] Marci Gonzalez, PRODUCT SAFETY TECHNICAL ASSISTANT [address] [place] [address] documented as of this encounter Goals Goal Patient Goal Type Associated Problems Recent Progress Patient-Stated? Author Autogenerat ed Goal Care Plan Autogenerated Problem No Lisa Johnston documented as of this encounter Procedures Procedure Name Priority Date/Time Associated Diagnosis Comments RAD ONC ARIA SESSION SUMMARY Routine 04/18/2025 2:14 PM EDT documented in this encounter Results * Rad Onc Aria Session Summary (04/18/2025 2:14 PM EDT) Course ID C1 ARIA RADIATION ONCOLOGY Course Intent Curative w/chemo ARIA RADIATION ONCOLOGY Course Start Date 03/01/2025 8:45 AM ARIA RADIATION ONCOLOGY Course First Treatment Date 03/21/2025 2:04 PM ARIA RADIATION ONCOLOGY Course Last Treatment Date 04/18/2025 2:12 PM ARIA RADIATION ONCOLOGY Course Elapsed Days 28 ARIA RADIATION ONCOLOGY Reference Point ID Pelvis ARIA RADIATION ONCOLOGY Reference Point Dosage Given to Date [id number] Gy ARIA RADIATION ONCOLOGY Reference Point Session Dosage Given [id number] Gy ARIA RADIATION ONCOLOGY Plan ID [id number] ARIA RADIATION ONCOLOGY Plan Name Pelvis& inguinals_PT V50 ARIA RADIATION ONCOLOGY Plan Fractions Treated to Date 21 ARIA RADIATION ONCOLOGY Plan Total Fractions Prescribed 25 ARIA RADIATION ONCOLOGY Plan Prescribed Dose Per Fraction 2 Gy ARIA RADIATION ONCOLOGY Plan Total Prescribed Dose 5,000 CGy ARIA RADIATION ONCOLOGY Plan Primary Reference Point Pelvis ARIA RADIATION ONCOLOGY 04/18/2025 2:14 PM EDT Physician Radiation Oncology RADIATION [...] documented as of this encounter Care Teams Accredited Farm Manager Relationship Specialty Start Date End Date Cmofort Siddiqi APRN [address] [place] [address] PCP - General 03/12/25 Km Wooten MD [address] [place] [address] [address] [place] [address] Consulting Physician Radiation Oncology 02/14/25 documented as of this encounter
--- OUTSIDE RECORDS SUMMARY | 2025-04-25 11:08 | XMS_ITS | Encounter Summary ---
Author Organization Healthcare Address [address] [place] [address] Care Team Providers Care Precision Lens Technician Name Role Phone Km oWoten MD Unavailable [phone] Comfort Siddiqi APRN Primary Care Provider [phone] Encounter Details Date Type Department Care Team (Late st Contact Info) Description 04/23/2025 Orders Only [facility] [address] [id number] [place] [address] Radiation Oncology, Physician, [address] [place], [place] [id number] Social History Tobacco Use Types Packs/Day Years [...] Appointment [facility] [address] [id number] [place] [address] Marci Gonzalez, HOSPITALITY HOUSEKEEPER [address] [place] [address] documented as of this encounter Goals Goal Patient Goal Type Associated Problems Recent Progress Patient-Stated? Author Autogenerat ed Goal Care Plan Autogenerated Problem No Lisa Johnston documented as of this encounter Procedures Procedure Name Priority Date/Time Associated Diagnosis Comments RAD ONC ARIA SESSION SUMMARY Routine 04/23/2025 2:05 PM EDT documented in this encounter Results * Rad Onc Aria Session Summary (04/23/2025 2:05 PM EDT) Course ID C1 ARIA RADIATION ONCOLOGY Course Intent Curative w/chemo ARIA RADIATION ONCOLOGY Course Start Date 03/01/2025 8:45 AM ARIA RADIATION ONCOLOGY Course First Treatment Date 03/21/2025 2:04 PM ARIA RADIATION ONCOLOGY Course Last Treatment Date 04/23/2025 2:03 PM ARIA RADIATION ONCOLOGY Course Elapsed Days 33 ARIA RADIATION ONCOLOGY Reference Point ID Pelvis ARIA RADIATION ONCOLOGY Reference Point Dosage Given to Date [id number] 0001 Gy ARIA RADIATION ONCOLOGY Reference Point Session Dosage Given [id number] Gy ARIA RADIATION ONCOLOGY Plan ID [id number] ARIA RADIATION ONCOLOGY Plan Name Pelvis& inguinals_PT V50 ARIA RADIATION ONCOLOGY Plan Fractions Treated to Date 24 ARIA RADIATION ONCOLOGY Plan Total Fractions Prescribed 25 ARIA RADIATION ONCOLOGY Plan Prescribed Dose Per Fraction 2 Gy ARIA RADIATION ONCOLOGY Plan Total Prescribed Dose 5,000 CGy ARIA RADIATION ONCOLOGY Plan Primary Reference Point Pelvis ARIA RADIATION ONCOLOGY 04/23/2025 2:05 PM EDT Physician Radiation Oncology RADIATION ONCOLO [...] documented as of this encounter Care Teams Precision Lens Technician Relationship Specialty Start Date End Date Comfort Siddiqi APRN [address] [place] [address] PCP - General 03/12/25 Km Wooten MD [address] [place] [address] [address] [place] [address] Consulting Physician Radiation Oncology 02/14/25 documented as of this encounter
--- OUTSIDE RECORDS SUMMARY | 2025-04-25 11:08 | XMS_ITS | Encounter Summary ---
Author Organization [facility] Address [address] [place] [address] Care Team Providers Care 21 Dealer Name Role Phone Km Wooten MD Unavailable [phone] Comfort Siddiqi APRN Primary Care Provider [phone] Encounter Details Date Type Department Care Team (Latest Contact Info) Description 04/22/2025 Travel Social History Tobacco Use Types Packs/Day [...] Appointment [facility] [address] [id number] [place] [address] Marci Gonzalez APRN [address] [phone] documented as of this encounter Goals Goal [...] documented as of this encounter Care Teams 21 Dealer Relationship Specialty Start Date End Date Comfort Siddiqi APRN [address] [place] [address] PCP - General 03/12/25 Km Wooten MD [address] [phone] Consulting Physician Radiation Oncology 02/14/25 documented as of this encounter
--- OUTSIDE RECORDS SUMMARY | 2025-04-25 11:08 | XMS_ITS | Encounter Summary ---
Author Organization Healthcare Address [address] [place] [address] Care Team Providers Care Infection Prevention Practitioner Name Role Phone Km Wooten MD Unavailable [phone] Comfort Siddiqi APRN Primary Care Provider [phone] Encounter Details Date Type Department Care Team (Late st Contact Info) Description 04/11/2025 Orders Only [facility] [address] [id number] [place] [address] Radiation Oncology, Physician, [address] [place], [place] [id number] Social History Tobacco Use Types Packs/Day Years [...] Appointment [facility] [address] [id number] [place] [address] Marci Gonzalez, CTO [address] [place] [address] documented as of this encounter [...] ONCOLOGY Reference Point Dosage Given to Date [id number] Gy ARIA RADIATION ONCOLOGY Reference Point Session Dosage Given 1.73332604 Gy ARIA RADIATION ONCOLOGY Plan ID [id number] [...] documented as of this encounter Care Teams Infection Prevention Practitioner Relationship Specialty Start Date End Date Comfort Siddiqi APRN [address] [place] [address] PCP - General 03/12/25 Km Wooten MD [address] [place] [address] [address] [place] [address] Consulting Physician Radiation Oncology 02/14/25 documented as of this encounter
--- OUTSIDE RECORDS SUMMARY | 2025-04-25 11:08 | XMS_ITS | Encounter Summary ---
Author Organization Healthcare Address [address] [place] [address] Care Team Providers Care Industrial Safety And Health Specialist Name Role Phone Km Wooten MD Unavailable [phone] Comfort Siddiqi APRN Primary Care Provider [phone] Encounter Details Date Type Department Care Team (Late st Contact Info) Description 04/22/2025 Orders Only [facility] [address] [id number] [place] [address] Radiation Oncology, Physician, [address] [place], [place] [phone] Social History Tobacco Use Types Packs/Day Years [...] Appointment [facility] [address] [id number] [place] [address] Marci Gonzalez, FIRST HELPER [address] [place] [address] documented as of this encounter Goals Goal Patient Goal Type Associated Problems Recent Progress Patient-Stated? Author Autogenerat ed Goal Care Plan Autogenerated Problem No Lisa Johnston documented as of this encounter Procedures Procedure Name Priority Date/Time Associated Diagnosis Comments RAD ONC ARIA SESSION SUMMARY Routine 04/22/2025 2:14 PM EDT documented in this encounter Results * Rad Onc Aria Session Summary (04/22/2025 2:14 PM EDT) Course ID C1 ARIA RADIATION ONCOLOGY Course Intent Curative w/chemo ARIA RADIATION ONCOLOGY Course Start Date 03/01/2025 8:45 AM ARIA RADIATION ONCOLOGY Course First Treatment Date 03/21/2025 2:04 PM ARIA RADIATION ONCOLOGY Course Last Treatment Date 04/22/2025 2:13 PM ARIA RADIATION ONCOLOGY Course Elapsed Days 32 ARIA RADIATION ONCOLOGY Reference Point ID Pelvis ARIA RADIATION ONCOLOGY Reference Point Dosage Given to Date [id number] 0001 Gy ARIA RADIATION ONCOLOGY Reference Point Session Dosage Given [id number] Gy ARIA RADIATION ONCOLOGY Plan ID [id number] ARIA RADIATION ONCOLOGY Plan Name Pelvis& inguinals_PT V50 ARIA RADIATION ONCOLOGY Plan Fractions Treated to Date 23 ARIA RADIATION ONCOLOGY Plan Total Fractions Prescribed 25 ARIA RADIATION ONCOLOGY Plan Prescribed Dose Per Fraction 2 Gy ARIA RADIATION ONCOLOGY Plan Total Prescribed Dose 5,000 CGy ARIA RADIATION ONCOLOGY Plan Primary Reference Point Pelvis ARIA RADIATION ONCOLOGY 04/22/2025 2:14 PM EDT Physician Radiation Oncology RADIATION [...] documented as of this encounter Care Teams Industrial Safety And Health Specialist Relationship Specialty Start Date End Date Comfort Siddiqi APRN [address] [place] [address] PCP - General 03/12/25 Km Wooten MD [address] [place] [address] [address] [place] [address] Consulting Physician Radiation Oncology 02/14/25 documented as of this encounter
--- OUTSIDE RECORDS SUMMARY | 2025-04-25 11:08 | XMS_ITS | Encounter Summary ---
Author Organization Healthcare Address [address] [place] [address] Care Team Providers Care Dye Expert Name Role Phone Km Wooten MD Unavailable [phone] Comfort Siddiqi APRN Primary Care Provider [phone] Encounter Details Date Type Department Care Team (Late st Contact Info) Description 03/25/2025 Orders Only [facility] [address] [id number] [place] [address] Radiation Oncology, Physician, [address] [place], [place] [id number] Social History Tobacco Use Types Packs/Day Years [...] Appointment [facility] [address] [id number] [place] [address] Marci Gonzalez, HOUSESMITH [address] [place] [address] documented as of this encounter [...] ONCOLOGY Reference Point Dosage Given to Date [id number] Gy ARIA RADIATION ONCOLOGY Reference Point Session Dosage Given 1.67916065 Gy ARIA RADIATION ONCOLOGY Plan ID A1A8 [...] documented as of this encounter Care Teams Dye Expert Relationship Specialty Start Date End Date Comfort Siddiqi APRN [address] [place] [address] PCP - General 03/12/25 Km Wooten MD [address] [place] [address] [address] [place] [address] Consulting Physician Radiation Oncology 02/14/25 documented as of this encounter
--- OUTSIDE RECORDS SUMMARY | 2025-04-25 11:08 | XMS_ITS | Encounter Summary ---
Author Organization Healthcare Address [address] [place] [address] Care Team Providers Care Rn Social Services Name Role Phone Km Wooten MD Unavailable [phone] Comfort Siddiqi APRN Primary Care Provider [phone] Encounter Details Date Type Department Care Team (Late st Contact Info) Description 04/24/2025 Orders Only [facility] [address] [id number] [place] [address] Radiation Oncology, Physician, [address] [place], [place] [phone] Social History Tobacco Use Types Packs/Day Years [...] Appointment [facility] [address] [id number] [place] [address] Marci Gonzalez, AUTOMATION AND CONTROLS INSTRUCTOR [address] [place] [address] documented as of this encounter Goals Goal Patient Goal Type Associated Problems Recent Progress Patient-Stated? Author Autogenerat ed Goal Care Plan Autogenerated Problem No Lisa Johnston documented as of this encounter Procedures Procedure Name Priority Date/Time Associated Diagnosis Comments RAD ONC ARIA SESSION SUMMARY Routine 04/24/2025 2:28 PM EDT documented in this encounter Results * Rad Onc Aria Session Summary (04/24/2025 2:28 PM EDT) Course ID C1 ARIA RADIATION ONCOLOGY Course Intent Curative w/chemo ARIA RADIATION ONCOLOGY Course Start Date 03/01/2025 8:45 AM ARIA RADIATION ONCOLOGY Course First Treatment Date 03/21/2025 2:04 PM ARIA RADIATION ONCOLOGY Course Last Treatment Date 04/24/2025 2:26 PM ARIA RADIATION ONCOLOGY Course Elapsed Days 34 ARIA RADIATION ONCOLOGY Reference Point ID Pelvis ARIA RADIATION ONCOLOGY Reference Point Dosage Given to Date [id number] 0001 Gy ARIA RADIATION ONCOLOGY Reference Point Session Dosage Given 1.11737702 Gy ARIA RADIATION ONCOLOGY Plan ID A1A8 ARIA RADIATION ONCOLOGY Plan Name Pelvis& inguinals_PT V50 ARIA RADIATION ONCOLOGY Plan Fractions Treated to Date 25 ARIA RADIATION ONCOLOGY Plan Total Fractions Prescribed 25 ARIA RADIATION ONCOLOGY Plan Prescribed Dose Per Fraction 2 Gy ARIA RADIATION ONCOLOGY Plan Total Prescribed Dose 5,000 CGy ARIA RADIATION ONCOLOGY Plan Primary Reference Point Pelvis ARIA RADIATION ONCOLOGY 04/24/2025 2:28 PM EDT Physician Radiation Oncology RADIATION ONCOLO [...] as of this encounter Care Teams Rn Social Services Relationship Specialty Start Date End Date Comfort Siddiqi APRN [address] [place] [address] PCP - General 03/12/25 Km Wooten MD [address] [place] [address] [address] [place] [address] Consulting Physician Radiation Oncology 02/14/25 documented as of this encounter
--- OUTSIDE RECORDS SUMMARY | 2025-04-25 11:08 | XMS_ITS | Encounter Summary ---
Author Organization [facility] Address [address] [place] [address] Care Team Providers Care Local Telephone Operator Name Role Phone Tejal Saeed APRN Primary Care Provider [phone] Km Wooten MD Unavailable [phone] Comfort Siddiqi APRN Primary Care Provider [phone] Encounter Details Date Type Department Care Team (Late st Contact Info) Description 01/08/2025 Orders Only External Location [address] [place] [address] Provider, External Social History Tobacco [...] Appointment [facility] [address] [id number] [place] [address] Marci Gonzalez APRN 800 [facility] [address] [place] [address] documented as of this encounter Procedures Procedure Name Priority Date/Time Associated Diagnosis Comments CT OUTSIDE IMAGES 01/08/2025 8:49 PM EDT documented in this encounter Results * CT OUTSIDE IMAGES (01/08/2025 8:49 PM EDT) Anatomical Region Laterality Modality Computed Tomogra phy 01/08/2025 8:49 PM EDT External Provider IMG CT PROCEDURES Final Result documented in this encounter Visit Diagnoses Not on filedocumented in this encounter Care Teams Local Telephone Operator Relationship Specialty Start Date End Date Tejal Saeed APRN [address] [place] [address] PCP - General 11/07/20 03/11/25 Comfort Siddiqi APRN [address] [place] [address] PCP - General 03/12/25 Km Wooten MD [address] [address] Consulting Physician Radiation Oncology 02/14/25 documented as of this encounter
--- OUTSIDE RECORDS SUMMARY | 2025-04-25 11:08 | XMS_ITS | Encounter Summary ---
Author Organization Healthcare Address [address] [place] [address] Care Team Providers Care Arresting Gear Operator Name Role Phone Km Wooten MD Unavailable [phone] Comfort Siddiqi APRN Primary Care Provider [phone] Encounter Details Date Type Department Care Team (Late st Contact Info) Description 04/02/2025 Orders Only [facility] [address] [id number] [place] [address] Radiation Oncology, Physician, [address] [place], [place] [address] Social History Tobacco Use Types Packs/Day Years [...] Appointment [facility] [address] [id number] [place] [address] Marci Gonzalez, TANK CARPENTER [address] [place] [address] documented as of this encounter [...] ONCOLOGY Reference Point Dosage Given to Date 17.54166362 Gy ARIA RADIATION ONCOLOGY Reference Point Session Dosage Given 1.72241190 Gy ARIA RADIATION ONCOLOGY Plan ID A1A8 [...] documented as of this encounter Care Teams Arresting Gear Operator Relationship Specialty Start Date End Date Comfort Siddiqi APRN [address] [place] [address] PCP - General 03/12/25 Km Wooten MD [address] [place] [address] [address] [place] [address] Consulting Physician Radiation Oncology 02/14/25 documented as of this encounter
--- OUTSIDE RECORDS SUMMARY | 2025-04-25 11:08 | XMS_ITS | Encounter Summary ---
Author Organization Healthcare Address [address] [place] [address] Care Team Providers Care Blood Or Blood Bank Technician Name Role Phone Km Wooten MD Unavailable [phone] Comfort Siddiqi APRN Primary Care Provider [phone] Encounter Details Date Type Department Care Team (Late st Contact Info) Description 04/01/2025 Orders Only [facility] Rad[facility] [address] [id number] [place] [address] Radiation Oncology, Physician, [address] [place], [place] [address] Social History Tobacco Use Types Packs/Day Years [...] Appointment [facility] Radiation [address] [id number] [place] [address] Marci Gonzalez, CNC TECHNICIAN [address] [place] [address] documented as of this encounter [...] ONCOLOGY Reference Point Dosage Given to Date 15.43535416 Gy ARIA RADIATION ONCOLOGY Reference Point Session Dosage Given 1.32996078 Gy ARIA RADIATION ONCOLOGY Plan ID A1A8 [...] documented as of this encounter Care Teams Blood Or Blood Bank Technician Relationship Specialty Start Date End Date Comfort Siddiqi APRN [address] [place] [address] PCP - General 03/12/25 Km Wooten MD [address] [place] [address] [address] [place] [address] Consulting Physician Radiation Oncology 02/14/25 documented as of this encounter
--- OUTSIDE RECORDS SUMMARY | 2025-04-25 11:08 | XMS_ITS | Encounter Summary ---
Author Organization Healthcare Address [address] [place] [address] Care Team Providers Care Mva Still Operator Name Role Phone Km Wooten MD Unavailable [phone] Comfort Siddiqi APRN Primary Care Provider [phone] Encounter Details Date Type Department Care Team (Late st Contact Info) Description 04/19/2025 Orders Only [facility] Rad[facility] [address] [id number] [place] [address] Radiation Oncology, Physician, [address] [place], [place] [id number] Social History Tobacco Use Types Packs/Day Years [...] Appointment [facility] Radiation [address] [id number] [place] [address] Marci Gonzalez, CHIEF EXECUTIVE [address] [place] [address] documented as of this encounter Goals Goal Patient Goal Type Associated Problems Recent Progress Patient-Stated? Author Autogenerat ed Goal Care Plan Autogenerated Problem No Lisa Johnston documented as of this encounter Procedures Procedure Name Priority Date/Time Associated Diagnosis Comments RAD ONC ARIA SESSION SUMMARY Routine 04/19/2025 2:08 PM EDT documented in this encounter Results * Rad Onc Aria Session Summary (04/19/2025 2:08 PM EDT) Course ID C1 ARIA RADIATION ONCOLOGY Course Intent Curative w/chemo ARIA RADIATION ONCOLOGY Course Start Date 03/01/2025 8:45 AM ARIA RADIATION ONCOLOGY Course First Treatment Date 03/21/2025 2:04 PM ARIA RADIATION ONCOLOGY Course Last Treatment Date 04/19/2025 2:06 PM ARIA RADIATION ONCOLOGY Course Elapsed Days 29 ARIA RADIATION ONCOLOGY Reference Point ID Pelvis ARIA RADIATION ONCOLOGY Reference Point Dosage Given to Date 43.33871176 Gy ARIA RADIATION ONCOLOGY Reference Point Session Dosage Given 1.77564957 Gy ARIA RADIATION ONCOLOGY Plan ID A1A8 ARIA RADIATION ONCOLOGY Plan Name Pelvis& inguinals_PT V50 ARIA RADIATION ONCOLOGY Plan Fractions Treated to Date 22 ARIA RADIATION ONCOLOGY Plan Total Fractions Prescribed 25 ARIA RADIATION ONCOLOGY Plan Prescribed Dose Per Fraction 2 Gy ARIA RADIATION ONCOLOGY Plan Total Prescribed Dose 5,000 CGy ARIA RADIATION ONCOLOGY Plan Primary Reference Point Pelvis ARIA RADIATION ONCOLOGY 04/19/2025 2:08 PM EDT Physician Radiation Oncology RADIATION ONCOLO [...] documented as of this encounter Care Teams Mva Still Operator Relationship Specialty Start Date End Date Comfort Siddiqi APRN [address] [place] [address] PCP - General 03/12/25 Km Wooten MD [address] [place] [address] [address] [place] [address] Consulting Physician Radiation Oncology 02/14/25 documented as of this encounter
--- OUTSIDE RECORDS SUMMARY | 2025-04-25 11:09 | XMS_ITS | Encounter Summary ---
Author Organization Healthcare Address [address] [place] [address] Care Team Providers Care Line Locator Name Role Phone Km Wooten MD Unavailable [phone] Comfort Siddiqi APRN Primary Care Provider [phone] Encounter Details Date Type Department Care Team (Late st Contact Info) Description 04/15/2025 Orders Only [facility] Radiation [address] [id number] [place] [address] Radiation Oncology, Physician, [address] [place], [place] [phone] Social History Tobacco Use Types Packs/Day Years [...] Appointment [facility] Radiation [address] [id number] [place] [address] Marci Gonzalez, PERFECT BIND MACHINE OPERATOR [address] [place] [address] documented as of this encounter [...] ONCOLOGY Reference Point Dosage Given to Date [id number] Gy ARIA RADIATION ONCOLOGY Reference Point Session Dosage Given 1.22534474 Gy ARIA RADIATION ONCOLOGY Plan ID A1A8 [...] documented as of this encounter Care Teams Line Locator Relationship Specialty Start Date End Date Comfort Siddiqi APRN [address] [place] [address] PCP - General 03/12/25 Km Wooten MD [address] [place] [address] [address] [place] [address] Consulting Physician Radiation Oncology 02/14/25 documented as of this encounter
--- OUTSIDE RECORDS SUMMARY | 2025-04-25 11:09 | XMS_ITS | Clinical Summary ---
Author Organization [facility] Address [address] [place] [address] Care Team Providers Care Contact Center Consultant Name Role Phone Km Wooten MD Unavailable [phone] Comfort Siddiqi APRN Primary Care Provider [phone] Allergies No known active allergies Medications atorvastatin [...] Encounters Date Type Department Care Team Description 04/24/2025 1:41 PM EDT Hospital Encounter [facility] [address] [place] [address] 04/24/2025 Orders Only [facility] [address] [phone] Radiation Oncology, PhysicianMD 04/23/2025 1:48 PM EDT Hospital Encounter [facility] [address] [phone] 04/23/2025 Orders Only [facility] [address] [phone] Radiation Oncology, PhysicianMD 04/22/2025 1:40 PM EDT Hospital Encounter [facility] [address] [phone] 04/22/2025 8:10 AM EDT Hospital Encounter [facility] [address] [phone] Arrived 04/22/2025 Orders Only [facility] [address] Radiation Oncology, PhysicianMD 04/22/2025 Travel 04/19/2025 1:42 PM EDT Hospital Encounter [facility] [address] 04/19/2025 Orders Only [facility] [address] [address] Radiation Oncology, PhysicianMD 04/18/2025 2:03 PM EDT Hospital Encounter [facility] [address] [phone] Km Wooten MD Malignant neoplasm of rectum (CMS/HCC) (Primary Dx) 04/18/2025 1:36 PM EDT Hospital Encounter [facility] [address] [address] 04/18/2025 Orders Only [facility] [address] [address] Radiation Oncology, PhysicianMD 04/17/2025 1:52 PM EDT - 04/17/2025 11:59 PM EDT Hospital Encounter [facility] [address] [phone] Discharge Disposition: Still a Patient 04/17/2025 Orders Only [facility] [address] [phone] Radiation Oncology, PhysicianMD 04/16/2025 1:28 PM EDT - 04/16/2025 11:59 PM EDT Hospital Encounter [facility] [address] [phone] Discharge Disposition: Still a Patient 04/16/2025 Orders Only [facility] [address] [phone] Radiation Oncology, PhysicianMD 04/15/2025 1:27 PM EDT - 04/15/2025 11:59 PM EDT Hospital Encounter [facility] [address] [phone] Discharge Disposition: Still a Patient 04/15/2025 8:33 AM EDT - 04/15/2025 1:26 PM EDT Hospital Encounter [facility] [address] [phone] Discharge Disposition: Still a Patient 04/15/2025 Orders Only [facility] [address] [address] Radiation Oncology, PhysicianMD 04/15/2025 Travel 04/12/2025 1:42 PM EDT - 04/12/2025 11:59 PM EDT Hospital Encounter [facility] [address] [phone] Discharge Disposition: Still a Patient 04/12/2025 Orders Only [facility] [address] [phone] Radiation Oncology, PhysicianMD 04/11/2025 1:50 PM EDT - 04/11/2025 11:59 PM EDT Hospital Encounter [facility] [address] [phone] Km Wooten MD Malignant neoplasm of rectum (CMS/HCC) (Primary Dx) Discharge Disposition: Still a Patient 04/11/2025 1:31 PM EDT - 04/11/2025 1:49 PM EDT Hospital Encounter [facility] [address] [phone] Discharge Disposition: Still a Patient 04/11/2025 Orders Only [facility] [address] [phone] Radiation Oncology, PhysicianMD 04/10/2025 1:31 PM EDT - 04/10/2025 11:59 PM EDT Hospital Encounter [facility] [address] [phone] Discharge Disposition: Still a Patient 04/10/2025 Orders Only [facility] [address] [phone] Radiation Oncology, PhysicianMD 04/09/2025 1:45 PM EDT - 04/09/2025 11:59 PM EDT Hospital Encounter [facility] [address] [phone] Discharge Disposition: Still a Patient 04/09/2025 Orders Only [facility] [address] [phone] Radiation Oncology, PhysicianMD 04/08/2025 1:38 PM EDT - 04/08/2025 11:59 PM EDT Hospital Encounter [facility] [address] [phone] Discharge Disposition: Still a Patient 04/08/2025 5:30 AM EDT - 04/08/2025 1:37 PM EDT Hospital Encounter [facility] [address] [phone] Discharge Disposition: Still a Patient 04/08/2025 Orders Only [facility] [address] [phone] Radiation Oncology, PhysicianMD 04/08/2025 Travel 04/05/2025 2:06 PM EDT - 04/05/2025 11:59 PM EDT Hospital Encounter [facility] [address] [phone] Discharge Disposition: Still a Patient 04/05/2025 Orders Only [facility] [address] [phone] Radiation Oncology, PhysicianMD 04/04/2025 1:53 PM EDT - 04/04/2025 11:59 PM EDT Hospital Encounter [facility] [address] [phone] Nancy Stanley MD Malignant neoplasm of rectum (CMS/HCC) (Primary Dx) Discharge Disposition: Still a Patient 04/04/2025 1:47 PM EDT - 04/04/2025 1:52 PM EDT Hospital Encounter [facility] [address] [phone] Discharge Disposition: Still a Patient 04/04/2025 Orders Only [facility] [address] [phone] Radiation Oncology, PhysicianMD 04/03/2025 1:29 PM EDT - 04/03/2025 11:59 PM EDT Hospital Encounter [facility] [address] [phone] Discharge Disposition: Still a Patient 04/03/2025 Orders Only [facility] [address] [phone] Radiation Oncology, PhysicianMD 04/02/2025 1:58 PM EDT - 04/02/2025 11:59 PM EDT Hospital Encounter [facility] [address] [phone] Discharge Disposition: Still a Patient 04/02/2025 Orders Only [facility] [address] [phone] Radiation Oncology, PhysicianMD 04/01/2025 1:41 PM EDT - 04/01/2025 11:59 PM EDT Hospital Encounter [facility] [address] [phone] Discharge Disposition: Still a Patient 04/01/2025 5:30 AM EDT - 04/01/2025 1:40 PM EDT Hospital Encounter [facility] [address] [phone] Discharge Disposition: Still a Patient 04/01/2025 Orders Only [facility] [address] [address] Radiation Oncology, PhysicianMD 04/01/2025 Travel 03/29/2025 1:25 PM EDT - 03/29/2025 11:59 PM EDT Hospital Encounter [facility] [address] [phone] Discharge Disposition: Still a Patient 03/29/2025 Orders Only [facility] [address] [phone] Radiation Oncology, PhysicianMD 03/28/2025 1:54 PM EDT - 03/28/2025 11:59 PM EDT Hospital Encounter [facility] [address] [phone] Km Wooten MD Malignant neoplasm of rectum (CMS/HCC) (Primary Dx) Discharge Disposition: Still a Patient 03/28/2025 1:37 PM EDT - 03/28/2025 1:53 PM EDT Hospital Encounter [facility] [address] [phone] Discharge Disposition: Still a Patient 03/28/2025 Orders Only [facility] [address] [phone] Radiation Oncology, PhysicianMD 03/27/2025 1:38 PM EDT - 03/27/2025 11:59 PM EDT Hospital Encounter [facility] [address] [phone] Discharge Disposition: Still a Patient 03/27/2025 Orders Only [facility] [address] [phone] Radiation Oncology, PhysicianMD 03/26/2025 1:30 PM EDT - 03/26/2025 11:59 PM EDT Hospital Encounter [facility] [address] [phone] Discharge Disposition: Still a Patient 03/26/2025 Orders Only [facility] [address] [phone] Radiation Oncology, PhysicianMD 03/25/2025 1:35 PM EDT - 03/25/2025 11:59 PM EDT Hospital Encounter [facility] [address] [phone] Discharge Disposition: Still a Patient 03/25/2025 5:30 AM EDT - 03/25/2025 1:34 PM EDT Hospital Encounter [facility] [address] [phone] Discharge Disposition: Still a Patient 03/25/2025 Orders Only [facility]iation [address] [phone] Radiation Oncology, PhysicianMD 03/25/2025 Travel 03/22/2025 1:49 PM EDT - 03/22/2025 11:59 PM EDT Hospital Encounter [facility] [address] [phone] Discharge Disposition: Still a Patient 03/22/2025 Orders Only [facility] Radiation [address] [phone] Radiation Oncology, PhysicianMD 03/21/2025 2:12 PM EDT - 03/21/2025 11:59 PM EDT Hospital Encounter [facility] [address] [phone] Km Wooten MD Malignant neoplasm of rectum (CMS/HCC) (Primary Dx) Discharge Disposition: Still a Patient 03/21/2025 1:48 PM EDT - 03/21/2025 2:11 PM EDT Hospital Encounter [facility] [address] [address] Km Wooten MD Discharge Disposition: Still a Patient 03/21/2025 Travel 03/21/2025 Orders Only [facility] [address] [phone] Radiation Oncology, Physician, 03/20/2025 Travel 03/18/2025 8:34 AM EDT - 03/18/2025 11:59 PM EDT Hospital Encounter [facility] [address] [phone] Discharge Disposition: Still a Patient 03/18/2025 Travel 03/15/2025 9:00 AM EDT Office Visit [facility] Ne[facility] Res[facility] 800 [facility], [address] [place] [phone] Deepak Haider MD Malignant neoplasm of rectum (CMS/HCC) (Primary Dx) 03/15/2025 Travel 03/12/2025 10:12 AM EDT Anesthesia Event [facility] End[facility] [address] [place] [phone] Shaun Hanley MD 03/12/2025 9:12 AM EDT - 03/12/2025 11:59 PM EDT Hospital Encounter [facility] Endoscopy [address] [place] [phone] Eric Tellez MD Lung nodule Discharge Disposition: Home or Self Care 03/12/2025 Travel 03/11/2025 5:00 PM EDT - 03/11/2025 11:59 PM EDT Hospital Encounter [facility] Radiation 800 [facility] [address] Discharge Disposition: Still a Patient 03/11/2025 Travel 03/04/2025 8:42 AM EDT - 03/04/2025 11:59 PM EDT Hospital Encounter [facility] Radiation 800 [facility] [address] Discharge Disposition: Still a Patient 03/04/2025 Travel 03/01/2025 8:40 AM EDT - 03/01/2025 11:59 PM EDT Hospital Encounter [facility] 800 [facility] [phone] Km Wooten MD Discharge Disposition: Still a Patient 02/28/2025 3:30 PM EDT Office Visit [facility] Res[facility] [address] [phone] Eric Tellez MD Adenopathy (Primary Dx) 02/28/2025 Travel 02/26/[address] [facility] Urology [address] [address] Perlita Her RN 02/26/2025 Travel 02/25/2025 11:50 AM EDT - 02/25/2025 11:59 PM EDT Hospital Encounter [facility] Radiation [address] [phone] Discharge Disposition: Still a Patient 02/21/2025 Telephone [facility] Head[facility] Neck [facility] Respiratory [address] [address] Eric Tellez MD 02/20/[address] [facility] Urology [address] [place] [address] Susi Bustos 02/20/[address] [facility] Urology [address] [place] [address] Susi Bustos L 2025 2:44 PM EDT - 2025 11:59 PM EDT Hospital Encounter [facility]iation [address] [phone] Km Wooten MD Malignant neoplasm of rectum (CMS/HCC) (Primary Dx) Discharge Disposition: Still a Patient 2025 Travel 02/18/2025 Orders Only [facility] Radiation [address] [phone] Km Wooten MD Elevated PSA (Primary Dx) 02/14/2025 Orders Only [facility] [address] [place] [address] Con Sumner MD 02/14/2025 Telephone [facility] [address] [address] Km Wooten MD 02/14/2025 Orders Only [facility] [address] [place] [address] Con Sumner MD Malignant neoplasm of rectum (CMS/HCC) (Primary Dx) 02/11/2025 4:34 PM EDT - 02/11/2025 11:59 PM EDT Hospital Encounter [facility] [address] [place] [address] Malignant neoplasm of rectum (CMS/HCC) Discharge Disposition: Home or Self Care 02/11/2025 3:04 PM EDT - 02/11/2025 4:33 PM EDT Hospital Encounter [facility] [address] [place] [address] Malignant neoplasm of rectum (CMS/HCC) Discharge Disposition: Home or Self Care 02/11/2025 Travel 02/08/2025 Lab Requisition [facility] Lab [address] [place] [address] Con Sumner MD Hemorrhage of anus and rectum 02/05/2025 11:00 AM EDT Office Visit [facility] Multidisciplinary Oncology Clinic [address] [place] [address] Con Sumner MD Malignant neoplasm of rectum [...] 0.5 oz) 04/18/2025 2:26 PM EDT Height 167.6 cm (5' 6 ) 03/12/2025 9:47 AM EDT Body Mass Index 44.23 03/12/2025 9:47 AM EDT Plan of Treatment Upcoming Encounters Date Type Department Care Team (Late st Contact Info) Description 05/27/2025 2:20 PM EST Appointment [facility] [address] [place] [address] Marci Gonzalez, MANAGER AUDIT [address] [place] [address] Health Maintenance Due Date Last Done Comments [...] 02/20/2016 Sigmoidoscopy 02/20/2016 [facility]-Colorectal Cancer Screening 02/20/2016 [id number] Vaccine ( - season) 2025 06/24/2021, 11/08/2020, [...] SESSION SUMMARY Routine 04/24/2025 2:28 PM EDT RAD ONC ARIA SESSION SUMMARY Routine 04/23/2025 2:05 PM EDT RAD ONC ARIA SESSION SUMMARY Routine 04/22/2025 2:14 PM EDT RAD ONC ARIA SESSION SUMMARY Routine 04/19/2025 2:08 PM EDT RAD ONC ARIA SESSION SUMMARY Routine 04/18/2025 2:14 PM EDT RAD ONC ARIA SESSION SUMMARY Routine 04/17/2025 [...] ONCOLOGY Reference Point Dosage Given to Date [phone] 0001 Gy ARIA RADIATION ONCOLOGY Reference Point Session Dosage Given 1.33826742 Gy ARIA RADIATION ONCOLOGY Plan ID [id number] [...] 2:28 PM EDT Physician Radiation Oncology RADIATION ONCLUZ GY ORDERABLES Final Result [facility] RADIATION ONCOLOGY * Rad Onc Aria Session Summary (04/23/2025 [...] ONCOLOGY Reference Point Dosage Given to Date [phone] 0001 Gy ARIA RADIATION ONCOLOGY Reference Point Session Dosage Given 1.05122455 Gy ARIA RADIATION ONCOLOGY Plan ID A1A8 [...] 2:05 PM EDT Physician Radiation Oncology RADIATION ONCLUZ GY ORDERABLES Final Result [facility] RADIATION ONCOLOGY * Rad Onc Aria Session Summary (04/22/2025 [...] ONCOLOGY Reference Point Dosage Given to Date [phone] 0001 Gy ARIA RADIATION ONCOLOGY Reference Point Session Dosage Given 1.27356789 Gy ARIA RADIATION ONCOLOGY Plan ID [id number] [...] 04/22/2025 2:14 PM EDT Physician Radiation Oncology MD RADIATION ONCOLO GY ORDERABLES Final Result [facility] RADIATION ONCOLOGY * Rad Onc Aria Session Summary (04/19/2025 [...] ONCOLOGY Reference Point Dosage Given to Date 43.72499094 Gy ARIA RADIATION ONCOLOGY Reference Point Session Dosage Given 1.16692907 Gy ARIA RADIATION ONCOLOGY Plan ID [id number] [...] ONCOLOGY * Rad Onc Aria Session Summary (04/18/2025 [...] ONCOLOGY Reference Point Dosage Given to Date 41.16827907 Gy ARIA RADIATION ONCOLOGY Reference Point Session Dosage Given 1.01668744 Gy ARIA RADIATION ONCOLOGY Plan ID [id number] [...] 2:14 PM EDT Physician Radiation Oncology RADIATION ONCLUZ GY ORDERABLES Final Result [facility] RADIATION ONCOLOGY * Rad Onc Aria Session Summary (04/17/2025 [...] ONCOLOGY Reference Point Dosage Given to Date 39.0194887 Gy ARIA RADIATION ONCOLOGY Reference Point Session Dosage Given 1.54332643 Gy ARIA RADIATION ONCOLOGY Plan ID A1A8 [...] 2:14 PM EDT Physician Radiation Oncology RADIATION ONCLUZ [...] ONCOLOGY Reference Point Dosage Given to Date 37.72964546 Gy ARIA RADIATION ONCOLOGY Reference Point Session Dosage Given 1.67315125 Gy ARIA RADIATION ONCOLOGY Plan ID A1A8 [...] 2:14 PM EDT Physician Radiation Oncology RADIATION ONCLUZ [...] ONCOLOGY Reference Point Dosage Given to Date 35.29402103 Gy ARIA RADIATION ONCOLOGY Reference Point Session Dosage Given 1.05641366 Gy ARIA RADIATION ONCOLOGY Plan ID A1A8 [...] 04/15/2025 1:44 PM EDT Physician Radiation Oncology MD RADIATION [...] ONCOLOGY Reference Point Dosage Given to Date 33.77843534 Gy ARIA RADIATION ONCOLOGY Reference Point Session Dosage Given 1.74228558 Gy ARIA RADIATION ONCOLOGY Plan ID A1A8 [...] ONCOLOGY Reference Point Dosage Given to Date 31.26816315 Gy ARIA RADIATION ONCOLOGY Reference Point Session Dosage Given 1.37943219 Gy ARIA RADIATION ONCOLOGY Plan ID A1A8 [...] 1:50 PM EDT Physician Radiation Oncology RADIATION ONCLUZ [...] ONCOLOGY Reference Point Dosage Given to Date 29.01629941 Gy ARIA RADIATION ONCOLOGY Reference Point Session Dosage Given 1.53407586 Gy ARIA RADIATION ONCOLOGY Plan ID A1A8 [...] 1:44 PM EDT Physician Radiation Oncology RADIATION ONCLUZ [...] ONCOLOGY Reference Point Dosage Given to Date 27.51110832 Gy ARIA RADIATION ONCOLOGY Reference Point Session Dosage Given 1.10302251 Gy ARIA RADIATION ONCOLOGY Plan ID A1A8 [...] 2:33 PM EDT Physician Radiation Oncology RADIATION ONCLUZ [...] ONCOLOGY Reference Point Dosage Given to Date 25.48215004 Gy ARIA RADIATION ONCOLOGY Reference Point Session Dosage Given 1.93623673 Gy ARIA RADIATION ONCOLOGY Plan ID A1A8 [...] 2:04 PM EDT Physician Radiation Oncology RADIATION ONCLUZ GY ORDERABLES Final Result Performing Organization Address City/State/[facility] Phone Number [facility]A RADIATION ONCOLOGY * Rad Onc Aria [...] ONCOLOGY Reference Point Dosage Given to Date 23.00984583 Gy ARIA RADIATION ONCOLOGY Reference Point Session Dosage Given 1.42800488 Gy ARIA RADIATION ONCOLOGY Plan ID A1A8 [...] ONCOLOGY Reference Point Dosage Given to Date 21.26395778 Gy ARIA RADIATION ONCOLOGY Reference Point Session Dosage Given 1.60301424 Gy ARIA RADIATION ONCOLOGY Plan ID A1A8 [...] ONCOLOGY Reference Point Dosage Given to Date 19.8011161 Gy ARIA RADIATION ONCOLOGY Reference Point Session Dosage Given 1.93415028 Gy ARIA RADIATION ONCOLOGY Plan ID A1A8 [...] ONCOLOGY Reference Point Dosage Given to Date 17.76458618 Gy ARIA RADIATION ONCOLOGY Reference Point Session Dosage Given 1.12761781 Gy ARIA RADIATION ONCOLOGY Plan ID A1A8 [...] ONCOLOGY Reference Point Dosage Given to Date 15.69686255 Gy ARIA RADIATION ONCOLOGY Reference Point Session Dosage Given 1.57805125 Gy ARIA RADIATION ONCOLOGY Plan ID A1A8 [...] ONCOLOGY Reference Point Dosage Given to Date 13.73212689 Gy ARIA RADIATION ONCOLOGY Reference Point Session Dosage Given 1.72497476 Gy ARIA RADIATION ONCOLOGY Plan ID A1A8 [...] 2:27 PM EDT Physician Radiation Oncology RADIATION ONCLUZ [...] ONCOLOGY Reference Point Dosage Given to Date 11.51882197 Gy ARIA RADIATION ONCOLOGY Reference Point Session Dosage Given 1.29377527 Gy ARIA RADIATION ONCOLOGY Plan ID A1A8 [...] ONCOLOGY Reference Point Dosage Given to Date 9.83508975 Gy ARIA RADIATION ONCOLOGY Reference Point Session Dosage Given 1.69597833 Gy ARIA RADIATION ONCOLOGY Plan ID A1A8 [...] ONCOLOGY Reference Point Dosage Given to Date 7.16029703 Gy ARIA RADIATION ONCOLOGY Reference Point Session Dosage Given 1.06130498 Gy ARIA RADIATION ONCOLOGY Plan ID A1A8 [...] 1:42 PM EDT Physician Radiation Oncology RADIATION ONCLUZ [...] ONCOLOGY Reference Point Dosage Given to Date 5.76739134 Gy ARIA RADIATION ONCOLOGY Reference Point Session Dosage Given 1.51940914 Gy ARIA RADIATION ONCOLOGY Plan ID A1A8 [...] ONCOLOGY Reference Point Dosage Given to Date 3.59380010 Gy ARIA RADIATION ONCOLOGY Reference Point Session Dosage Given 1.46658595 Gy ARIA RADIATION ONCOLOGY Plan ID A1A8 [...] ARIA RADIATION ONCOLOGY 03/22/2025 2:22 PM EDT us Physician Radiation Oncology RADIATION ONCLUZ GY ORDERABLES [...] ONCOLOGY Reference Point Dosage Given to Date 1.03319364 Gy ARIA RADIATION ONCOLOGY Reference Point Session Dosage Given 1.52610316 Gy ARIA RADIATION ONCOLOGY Plan ID A1A8 [...] MD RADIATION ONCOLO GY ORDERABLES Final Result [facility] RADI[facility] ONCOLOG[facility] * Fungal Culture, Tissue and [...] Final Result [facility] [address] [place] [address] * AFB Culture, Non Respiratory Source and Acid Fast Stain (03/12/2025 12:37 PM EDT) AFB Culture No Mycobacterial Growth at 6 Weeks 04/24/2025 4:[address] [facility] Acid Fast Stain No acid fast bacilli seen 04/24/2025 4:[address] [facility] Fine Needle Aspirate Structure of lymph node / Unknown Non-blood Collection / Unknown 03/12/2025 12:37 PM EDT 03/12/2025 12:46 PM EDT Eric Tellez MD LAB MICROBIOLOGY - GENERAL OR DERABLES Final Result Performing Organization Address [facility] Co de Phone Number [facility] [address] [place] [address] * Tissue Culture and Gram Stain (03/12/2025 12:37 PM EDT) Culture No growth at day 4 2024 2:[address] [facility] Gram Stain Result No organisms seen 03/16/2025 2:[address] [facility] Gram Stain Result No polymorphonuclear leukocytes seen 03/16/2025 2:01 PM EDT [facility] Fine Needle Aspirate Structure of lymph node / Unknown Non-blood Collection / Unknown 03/12/2025 12:37 PM EDT 03/12/2025 12:46 PM EDT Eric Tellez MD LAB MICROBIOLOGY - GENERAL OR DERABLES Final Result Performing Organization Address [facility] [place] [address] * (ABNORMAL) Anaerobic Culture (03/12/2025 12:37 PM EDT) Culture No anaerobes isolated 03/16/2025 4:[address] [facility] Culture Streptococcus mitis/oralis group(A) 03/16/2025 4:[address] [facility] Comment: This isolate has been identified using the FDA Approved [employer] System The organism value for this [...] Final Result [facility] [address] [place] [address] * Bronchoscopy w EBUS (03/12/2025 11:25 AM [...] Nodes observed under convex ultrasound guidance. 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 32695 - EBUS convex prove 1 or 2 lesions GC - Service has been performed in part by a resident/fellow under the direction of a teaching physician Eric Tellez MD GI PROCEDURE ORDERABLES Final Result * Fine needle aspiration (03/12/2025 10:43 AM EDT) Case Report Cytology Case: [id number] Authorizing Provider: Eric Tellez MD Collected: 03/12/2025 1043 Ordering Location: [facility] H Endoscopy Received: 03/12/2025 1129 Pathologist: [...] FINE NEEDLE ASPIRATION 5 12:[address] [facility] Final Diagnosis A. LYMPH NODE, STATION 7, ENDOBRONCHIAL ULTRASOUND-GUIDED FINE NEEDLE ASPIRATION: NO EVIDENCE OF MALIGNANCY, HEMODILUTE LYMPHOID TISSUE. B. LYMPH NODE, 4 RIGHT, ENDOBRONCHIAL ULTRASOUND-GUIDED FINE NEEDLE ASPIRATION: NO EVIDENCE OF MALIGNANCY, HEMODILUTE LYMPHOID TISSUE. C. LYMPH NODE, 11 RIGHT, ENDOBRONCHIAL ULTRASOUND-GUIDED FINE NEEDLE ASPIRATION: NO EVIDENCE OF MALIGNANCY, HEMODILUTE LYMPHOID TISSUE. 5 12:59 PM EDT [facility] at 1259 EDT Comment The possibility of rare poorly-formed granulomas is not excluded, especially in the station 7 lymph node sample. For this reason, GMS and AFB stains are performed. These are negative for organisms. 5 12:59 PM EDT [facility] Special and Immunohistochemical Stains Special Stain: A1-2 Acid Fast Bacteria A1-3 GMS IHC: There are no tasks to display for the given criteria. All controls show appropriate reactivity. All immunohistochemis try, in situ hybridization, and histochemical tests were developed by and are performed at the [facility], [address] [place] [address]. All tests reported here, except those addressing [...] on decalcified specimens. 5 12:59 PM EDT [facility] Immediate Evaluation A. FNA performed by: [...] - Lung nodule [ICD-10-CM] 12:[address] [facility] [...] Final Result [facility] [address] [place] [address] * AK AN ELECTIVE ENDOTRACHEAL AIRWAY, PB ANESTHESIA PLACEHOLDER (03/12/2025 10:22 AM EDT) Narrative Palma Marin CRNA - 03/12/2025 10:22 AM EDT Palma Marin CRNA 03/12/2025 10:32 AM Airway Date/Time: 03/12/2025 10:22 AM Reason: elective Airway not difficult General Information and Staff Patient location during procedure: OR TEDDY: Palma Marin CRNA Performed: NEON SIGN ERECTOR Patient Condition Indications for airway management: anesthesia [...] EDT) Case Report Sugical Pathology Consult Case: [id number] Authorizing Provider: Con Sumner MD Collected: 02/08/20259 Ordering Location: [facility] Lab Received: 02/08/2025 1105 Pathologist: Luis Weiner DO Specimen: Colon, [id number] 02/10/2025 12:09 PM EDT [facility] Final Diagnosis DESIGNATED COLON, RECTUM; MASS, BIOPSY (OUTSIDE SLIDES; [id number]; 02/05/2025): - MODERATELY DIFFERENTIATED ADENOCARCINOMA (SEE COMMENT). - MMR BY IHC (PER REPORT): - RETAINED NUCLEAR EXPRESSION OF ALL FOUR PROTEINS (MLH1, PMS2, MSH2 AND MSH6). 02/10/2025 12:09 PM EDT [facility] at 1209 EDT Comment Correlation with endoscopic findings and imaging is recommended to determine site of tumor (colon vs rectum) given specimen designation. 02/10/2025 12:09 PM EDT [facility] Clinical Information K62.5 - Hemorrhage of anus and rectum [ICD-10-CM] 02/10/2025 12:09 PM EDT [facility] Gross Description A. [id number] Received along with a corresponding pathology report from [facility] are 5 slide(s) labeled outside case: [id number] collected on 01/31/2025. 02/10/2025 12:[address] [facility] Note: A resident was involved in the service. I attest I examined the relevant preparations for the specimens and confirmed the diagnosis or interpretation. 02/10/2025 12:09 PM EDT [facility] Tissue Colon structure / Unknown 02/08/2025 11:05 AM EDT 02/08/2025 11:05 AM EDT us Con Sumner MD LAB PATHOLOGY ORDERABLES Final Result [facility] [address] [place] [address] * CEA (02/05/2025 11:54 AM EDT) CEA, Serum <1.8 <4.0 ng/mL 02/05/2025 1:23 PM EDT [facility] Blood Venous blood specimen / [...] MD LAB BLOOD ORDERABLES Final Res ult [facility] [address] [place] [address] from Last 3 Months Additional Health Concerns Active Problems Noted Date Diagnosed Date Autogenerated Problem 02/28/2025 Insurance Care Teams Contact Center Consultant Relationship Specialty Start Date End Date Comfort Siddiqi APRN [address] [place] [address] PCP - General 03/12/25 Km Wooten MD 800 [facility] [address] [place] [phone] Consulting Physician Radiation Oncology 02/14/25
--- OUTSIDE RECORDS SUMMARY | 2025-04-25 11:09 | XMS_ITS | Encounter Summary ---
Author Organization [facility] Address [address] [id number] Care Team Providers Care Rigging Man Name Role Phone Tejal Saeed APRN Primary Care Provider [phone] Km Wooten MD Unavailable [phone] Encounter Details Date Type Department Care [...] Appointment [facility] Radiation [address] [id number] [place] [address] Marci Gonzalez, CLOTH COVERED HELMET PULLER [address] [phone] documented as of this encounter Goals Goal [...] documented as of this encounter Care Teams Rigging Man Relationship Specialty Start Date End Date Tejal Saeed, CLOTH COVERED HELMET PULLER [address] [place] [address] PCP - General 11/07/20 03/11/25 Km Wooten MD [address] [phone] Consulting Physician Radiation Oncology 02/14/25 documented as of this encounter
--- OUTSIDE RECORDS SUMMARY | 2025-04-25 11:09 | XMS_ITS | Encounter Summary ---
Author Organization [facility] Address [address] [place] [address] Care Team Providers Care Component Technician Name Role Phone Km Wooten MD Unavailable [phone] Comfort Siddiqi APRN Primary Care Provider [phone] Encounter Details Date Type Department Care Team (Late st Contact Info) Description 04/16/2025 Orders Only [facility] Radiation [address] [id number] [place] [address] Radiation Oncology, Physician, [address] [place], [place] [id number] Social History Tobacco Use Types Packs/Day Years [...] Appointment [facility] [address] [id number] [place] [address] Marci Gonzalez, SHEEP SORTER [address] [place] [address] documented as of this encounter [...] ONCOLOGY Reference Point Dosage Given to Date [id number] Gy ARIA RADIATION ONCOLOGY Reference Point Session Dosage Given 1.39426834 Gy ARIA RADIATION ONCOLOGY Plan ID [email or web address] [...] documented as of this encounter Care Teams Component Technician Relationship Specialty Start Date End Date Comfort Siddiqi APRN [address] [place] [address] PCP - General 03/12/25 Km Wooten MD [address] [place] [address] [address] [place] [address] Consulting Physician Radiation Oncology 02/14/25 documented as of this encounter
--- OUTSIDE RECORDS SUMMARY | 2025-04-25 11:09 | XMS_ITS | Encounter Summary ---
Author Organization [facility] Address [address] [place] [address] Care Team Providers Care Cylinder Machine Operator Pulp Drier Name Role Phone Tejal Saeed SURFACE SHIP USW SUPERVISOR Primary Care Provider [phone] Km Wooten MD Unavailable [phone] Encounter Details Date Type Department Care [...] Appointment [facility] Radiation [address] [id number] [place] [address] Marci Gonzalez, SURFACE SHIP USW SUPERVISOR [address] [place] [address] documented as of this encounter Visit Diagnoses [...] documented as of this encounter Care Teams Cylinder Machine Operator Pulp Drier Relationship Specialty Start Date End Date Tejal Saeed APRN [address] [place] [address] PCP - General 11/07/20 03/11/25 Km Wooten MD 800 [facility] [address] [place] [address] Consulting Physician Radiation Oncology 02/14/25 documented as of this encounter
--- OUTSIDE RECORDS SUMMARY | 2025-04-25 11:09 | XMS_ITS | Encounter Summary ---
Author Organization [facility] Address [address] [id number] Care Team Providers Care Welder Assistant Name Role Phone Tejal Saeed APRN Primary Care Provider [phone] Km Wooten MD Unavailable [phone] Comfort Siddiqi APRN Primary Care Provider [phone] Encounter Details Date Type Department Care Team (Late st Contact Info) Description 02/08/2025 Lab Requisition [facility] [address] [place] [address] Con Sumner MD [address] [facility] [address] [place] [address] Hemorrhage of anus and rectum Social History [...] EST Appointment [facility] Radiation [address] [place] [address] Marci Gonzalez, LANCE CREWMEMBER/MLRS SERGEANT [address] [place] [address] documented as of this encounter Procedures Procedure Name Priority Date/Time Associated Diagnosis Comments SURGICAL PATHOLOGY CONSULT Routine 02/08/2025 11:05 AM EDT Hemorrhage of anus and rectum documented in this encounter Results * Surgical Pathology Consult (02/08/2025 11:05 AM EDT) Case Report Sugical Pathology Consult Case: [id number] Authorizing Provider: Con Sumner MD Collected: 02/08/20251104 Ordering Location: [facility] Lab Received: 02/08/2025 110 Pathologist: Luis Weiner DO Specimen: Colon, [id number] 02/10/2025 12:09 PM EDT [facility] Final Diagnosis DESIGNATED COLON, RECTUM; MASS, BIOPSY (OUTSIDE SLIDES; [id number]; 02/05/2025): - MODERATELY DIFFERENTIATED ADENOCARCINOMA (SEE COMMENT). - MMR BY IHC (PER REPORT): - RETAINED NUCLEAR EXPRESSION OF ALL FOUR PROTEINS (MLH1, PMS2, MSH2 AND MSH6). 02/10/2025 12:09 PM EDT [facility] at 1209 EDT Comment Correlation with endoscopic findings and imaging is recommended to determine site of tumor (colon vs rectum) given specimen designation. 02/10/2025 12:09 PM EDT [facility] Clinical Information K62.5 - Hemorrhage of anus and rectum [ICD-10-CM] 02/10/2025 12:09 PM EDT [facility] Gross Description A. [id number] Received along with a corresponding pathology report from [facility] Laboratory are 5 slide(s) labeled outside case: [id number] collected on 01/31/2025. 02/10/2025 12:09 PM EDT [facility] Note: A resident was involved in the service. I attest I examined the relevant preparations for the specimens and confirmed the diagnosis or interpretation. 02/10/2025 12:09 PM EDT [facility] Tissue Colon structure / Unknown 02/08/2025 11:05 AM EDT 02/08/2025 11:05 AM EDT us Con Sumner MD LAB PATHOLOGY ORDERABLES Final Result [facility] [address] [place] [address] documented in this encounter Visit Diagnoses Diagnosis [...] documented as of this encounter Care Teams Welder Assistant Relationship Specialty Start Date End Date Tejal Saeed APRN [address] [place] [address] PCP - General 11/07/20 03/11/25 Comfort Siddiqi APRN [address] [place] [address] PCP - General 03/12/25 Km Wooten MD 800 [facility] [address] [place] [address] Consulting Physician Radiation Oncology 02/14/25 documented as of this encounter
--- OUTSIDE RECORDS SUMMARY | 2025-04-25 11:09 | XMS_ITS | Encounter Summary ---
Author Organization [facility] Address [address] [place] [address] Care Team Providers Care High Lift Mule Operator Name Role Phone Km Wooten MD Unavailable [phone] Comfort Siddiqi APRN Primary Care Provider [phone] Encounter Details Date Type Department Care Team (Late st Contact Info) Description 03/29/2025 Orders Only [facility] Radiation [address] [id number] [place] [address] Radiation Oncology, Physician, [address] [place], [place] [id number] Social History Tobacco Use Types Packs/Day Years [...] Appointment [facility] Radiation [address] [id number] [place] [address] Marci Gonzalez, GRAIN PROCESSOR [address] [place] [address] documented as of this encounter [...] ONCOLOGY Reference Point Dosage Given to Date 13.53014179 Gy ARIA RADIATION ONCOLOGY Reference Point Session Dosage Given 1.69513210 Gy ARIA RADIATION ONCOLOGY Plan ID [email or web address] [...] documented as of this encounter Care Teams High Lift Mule Operator Relationship Specialty Start Date End Date Comfort Siddiqi APRN [address] [place] [address] PCP - General 03/12/25 Km Wooten MD [address] [place] [address] [address] [place] [address] Consulting Physician Radiation Oncology 02/14/25 documented as of this encounter
--- OUTSIDE RECORDS SUMMARY | 2025-04-25 11:09 | XMS_ITS | Encounter Summary ---
Author Organization [facility] Address [address] [place] [address] Care Team Providers Care Cutter Out Name Role Phone Km Wooten MD Unavailable [phone] Comfort Siddiqi APRN Primary Care Provider [phone] Encounter Details Date Type Department Care Team [...] Appointment [facility] Radiation [address] [id number] [place] [address] Marci Gonzalez APRN [address] [phone] documented as of this encounter Goals Goal [...] documented as of this encounter Care Teams Cutter Out Relationship Specialty Start Date End Date Comfort Siddiqi APRN [address] [place] [address] PCP - General 03/12/25 Km Wooten MD [address] [phone] Consulting Physician Radiation Oncology 02/14/25 documented as of this encounter
--- OUTSIDE RECORDS SUMMARY | 2025-04-25 11:09 | XMS_ITS | Encounter Summary ---
Author Organization [facility] Address [address] [place] [address] Care Team Providers Care Mortgage Loan Underwriter Name Role Phone Km Wooten MD Unavailable [phone] Comfort Siddiqi APRN Primary Care Provider [phone] Encounter Details Date Type Department Care Team (Late st Contact Info) Description 04/09/2025 Orders Only [facility] Radiation [address] [id number] [place] [address] Radiation Oncology, Physician, [address] [place], [place] [address] Social History Tobacco Use Types Packs/Day Years [...] Appointment [facility] Radiation [address] [id number] [place] [address] Marci Gonzalez, FOOD SERVICES COORDINATOR [address] [place] [address] documented as of this encounter [...] ONCOLOGY Reference Point Dosage Given to Date 27.41793910 Gy ARIA RADIATION ONCOLOGY Reference Point Session Dosage Given 1.12444402 Gy ARIA RADIATION ONCOLOGY Plan ID [id number] [...] documented as of this encounter Care Teams Mortgage Loan Underwriter Relationship Specialty Start Date End Date Comfort Siddiqi APRN [address] [place] [address] PCP - General 03/12/25 Km Wooten MD [address] [place] [address] [address] [place] [address] Consulting Physician Radiation Oncology 02/14/25 documented as of this encounter
--- OUTSIDE RECORDS SUMMARY | 2025-04-25 11:09 | XMS_ITS | Encounter Summary ---
Author Organization [facility] Address [address] [place] [address] Care Team Providers Care Cable Operator Name Role Phone Km Wooten MD Unavailable [phone] Comfort Siddiqi APRN Primary Care Provider [phone] Encounter Details Date Type Department Care Team [...] Appointment [facility] Radiation [address] [id number] [place] [address] Marci Gonzalez APRN [address] [phone] documented as of this encounter Goals Goal [...] as of this encounter Care Teams Cable Operator Relationship Specialty Start Date End Date Comfort Siddiqi APRN [address] [place] [address] PCP - General 03/12/25 Km Wooten MD [address] [phone] Consulting Physician Radiation Oncology 02/14/25 documented as of this encounter
--- OUTSIDE RECORDS SUMMARY | 2025-04-25 11:09 | XMS_ITS | Encounter Summary ---
Author Organization [facility] Address [address] [place] [address] Care Team Providers Care Stenographer Secretary Name Role Phone Tejal Saeed APRN Primary Care Provider [phone] Km Wooten MD Unavailable [phone] Encounter Details Date Type Department Care [...] Appointment [facility] Radiation [address] [id number] [place] [address] Marci Gonzalez, PRESS OPERATOR APPRENTICE [id number] [place] [address] documented as of this encounter [...] documented as of this encounter Care Teams Stenographer Secretary Relationship Specialty Start Date End Date Tejal Saeed, PRESS OPERATOR APPRENTICE [address] [place] [address] PCP - General 11/07/20 03/11/25 Km Wooten MD [address] [facility] [address] [place] [address] Consulting Physician Radiation Oncology 02/14/25 documented as of this encounter
--- OUTSIDE RECORDS SUMMARY | 2025-04-25 11:09 | XMS_ITS | Encounter Summary ---
Author Organization [facility] Address [address] [place] [address] Care Team Providers Care Candy Packer Name Role Phone Tejal Saeed APRN Primary Care Provider [phone] Km Wooten MD Unavailable [phone] Encounter Details Date Type Department Care Team (Late st Contact Info) Description 02/26/2025 Telephone [facility] [address] [place] [address] Perlita Her I, RN [facility] Social History Tobacco Use Types [...] Appointment [facility] Radiation [address] [id number] [place] [address] Marci Gonzalez, TECHNICAL SALES ADVISOR [address] [facility] [address] [place] [address] documented as of this encounter Visit Diagnoses [...] as of this encounter Care Teams Candy Packer Relationship Specialty Start Date End Date Tejal Saeed, TECHNICAL SALES ADVISOR [facility] [place] [address] PCP - General 11/07/20 03/11/25 Km Wooten MD [address] [facility] [address] [place] [address] Consulting Physician Radiation Oncology 02/14/25 documented as of this encounter
--- OUTSIDE RECORDS SUMMARY | 2025-04-25 11:09 | XMS_ITS | Encounter Summary ---
Author Organization [facility] Address [address] [place] [address] Care Team Providers Care Air Control Electronics Operator Name Role Phone Km Wooten MD Unavailable [phone] Comfort Siddiqi APRN Primary Care Provider [phone] Encounter Details Date Type Department Care Team (Late st Contact Info) Description 04/17/2025 Orders Only [facility] Radiation [address] [id number] [place] [address] Radiation Oncology, Physician, [address] [place], [place] [id number] Social History Tobacco Use Types Packs/Day Years [...] Appointment [facility] Radiation [address] [id number] [place] [address] Marci Gonzalez, SHRIMP BOAT CAPTAIN [address] [place] [address] documented as of this encounter [...] ONCOLOGY Reference Point Dosage Given to Date 39.5821222 Gy ARIA RADIATION ONCOLOGY Reference Point Session Dosage Given 1.03289053 Gy ARIA RADIATION ONCOLOGY Plan ID [email or web address] [...] documented as of this encounter Care Teams Air Control Electronics Operator Relationship Specialty Start Date End Date Comfort Siddiqi APRN [address] [place] [address] PCP - General 03/12/25 Km Wooten MD [address] [place], [place] [address]D [place] [address] Consulting Physician Radiation Oncology 02/14/25 documented as of this encounter
--- OUTSIDE RECORDS SUMMARY | 2025-04-25 11:09 | XMS_ITS | Encounter Summary ---
Author Organization [facility] Address [address] [place] [address] Care Team Providers Care Naval Architect Name Role Phone Tejal Saeed APRN Primary Care Provider [phone] Km Wooten MD Unavailable [phone] Comfort Siddiqi APRN Primary Care Provider [phone] Encounter Details Date Type Department Care Team (Late st Contact Info) Description 01/08/2025 Orders Only External Location [address] [place] [address] Provider, External Social History Tobacco [...] Appointment [facility] Radiation [address] CC[address] [place] [address] Marci Gonzalez APRN 800 [facility] [address] [place] [address] documented as of this encounter Procedures Procedure [...] on filedocumented in this encounter Care Teams Naval Architect Relationship Specialty Start Date End Date Tejal Saeed APRN [address] [place] [address] PCP - General 11/07/20 03/11/25 Comfort Siddiqi APRN [address] [place] [address] PCP - General 03/12/25 Km Wooten MD [address] [address] Consulting Physician Radiation Oncology 02/14/25 documented as of this encounter
[2025-04-25 11:10] LABS: Bilirubin,Urine Negative (Negative); Color,Urine YELLOW (Yellow); Glucose,Urine (UA) Negative (Negative); Ketones,Urine Negative (Negative); Leukocyte Esterase,Urine Negative (Negative); PH,Urine 6.0 (5.0-8.5); Protein,Urine Negative (Negative); Specific Gravity, Urine 1.025 (1.005-1.030); Urobilinogen,Urine 1.0 EU/dl (0.2)
[2025-04-25] MEDS: NYSTATIN TOPICAL POWDER 30GM 30 GM TP (11:11)
--- OUTSIDE RECORDS SUMMARY | 2025-04-25 11:11 | XMS_ITS | Encounter Summary ---
Author Organization [facility] Address [address] [place] [address] Care Team Providers Care Tub Mender Name Role Phone Km Wooten MD Unavailable [phone] Comfort Siddiqi APRN Primary Care Provider [phone] Encounter Details Date Type Department Care Team (Late st Contact Info) Description 03/26/2025 Orders Only [facility] Radiation [address] [id number] [place] [address] Radiation Oncology, Physician, [address] [place], [place] [address] Social History Tobacco Use Types Packs/Day Years [...] Appointment [facility] Radiation [address] [id number] [place] [address] Marci Gonzalez, BRAND REPRESENTATIVE [address] [place] [address] documented as of this encounter [...] ONCOLOGY Reference Point Dosage Given to Date 7.80540211 Gy ARIA RADIATION ONCOLOGY Reference Point Session Dosage Given 1.82556859 Gy ARIA RADIATION ONCOLOGY Plan ID [email or web address] [...] documented as of this encounter Care Teams Tub Mender Relationship Specialty Start Date End Date Comfort Siddiqi APRN [address] [place] [address] PCP - General 03/12/25 Km Wooten MD [address] [place] [address] [address] [place] [address] Consulting Physician Radiation Oncology 02/14/25 documented as of this encounter
--- OUTSIDE RECORDS SUMMARY | 2025-04-25 11:11 | XMS_ITS ---
Author Organization [facility] Address [address] [place] [address] Care Team Providers Care Corporate Manager Name Role Phone Km Wooten MD Unavailable [phone] Comfort Siddiqi APRN Primary Care Provider [phone] Active Problems Problem Noted Date Diagnosed Date [...] Treatment Site Technique Goal Episode Provider 03/21/2025 04/24/2025 Bilateral Rectum Consolidative * Linked Problems Rectal cancer Treatment Courses* Course C1 03/21/2025 - 04/24/2025 Treatment Period Fraction Dose Fractions Total Dose Plans Planned Pelvis& inguinals_PTV50 [A1A8] 03/21/2025 - 04/24/2025 200 cGy 5,000 cG y Reference Points Delivered Pelvis 03/21/2025 - 04/24/2025 5,000 cGy
--- OUTSIDE RECORDS SUMMARY | 2025-04-25 11:11 | XMS_ITS | Encounter Summary ---
Author Organization [facility] Address [address] [place] [address] Care Team Providers Care Head Doffer Name Role Phone Km Wooten MD Unavailable [phone] Comfort Siddiqi APRN Primary Care Provider [phone] Encounter Details Date Type Department Care Team (Late st Contact Info) Description 04/03/2025 Orders Only [facility] Radiation [address] [id number] [place] [address] Radiation Oncology, Physician, [address] [place], [place] [phone] Social History Tobacco Use Types Packs/Day Years [...] Appointment [facility] CC Radiation [address] [id number] [place] [address] Marci Gonzalez, PIT SLAGMAN [address] [place] [address] documented as of this encounter [...] ONCOLOGY Reference Point Dosage Given to Date 19.9573159 Gy ARIA RADIATION ONCOLOGY Reference Point Session Dosage Given 1.46971298 Gy ARIA RADIATION ONCOLOGY Plan ID [email or web address] [...] as of this encounter Care Teams Head Doffer Relationship Specialty Start Date End Date Comfort Siddiqi APRN [address] [place] [address] PCP - General 03/12/25 Km Wooten MD [address] [place], [place] 322664D [place] [address] Consulting Physician Radiation Oncology 02/14/25 documented as of this encounter
--- OUTSIDE RECORDS SUMMARY | 2025-04-25 11:11 | XMS_ITS | Encounter Summary ---
Author Organization [facility] Address [address] [place] [address] Care Team Providers Care Business Control Manager Name Role Phone Km Wooten MD Unavailable [phone] Comfort Siddiqi APRN Primary Care Provider [phone] Encounter Details Date Type Department Care Team (Late st Contact Info) Description 04/05/2025 Orders Only [facility] Radiation [address] [id number] [place] [address] Radiation Oncology, Physician, [address] [place], [place] [id number] Social History Tobacco Use Types Packs/Day Years [...] Appointment [facility] CC Radiation [address] [id number] [place] [address] Marci Gonzalez, OWNER/PHOTOGRAPHER [address] [place] [address] documented as of this [...] ONCOLOGY Reference Point Dosage Given to Date 23.64234097 Gy ARIA RADIATION ONCOLOGY Reference Point Session Dosage Given 1.79457796 Gy ARIA RADIATION ONCOLOGY Plan ID [email or web address] [...] documented as of this encounter Care Teams Business Control Manager Relationship Specialty Start Date End Date Comfort Siddiqi APRN [address] [place] [address] PCP - General 03/12/25 Km Wooten MD [address] [place] [address] [address] [place] [address] Consulting Physician Radiation Oncology 02/14/25 documented as of this encounter
--- OUTSIDE RECORDS SUMMARY | 2025-04-25 11:11 | XMS_ITS | Encounter Summary ---
Author Organization Healthcare Address [address] [place] [address] Care Team Providers Care Nanotechnology Technician Name Role Phone mK Wooten MD Unavailable [phone] Comfort Siddiqi APRN Primary Care Provider [phone] Encounter Details Date Type Department Care Team (Late st Contact Info) Description 03/28/2025 Orders Only [facility] Rad[facility] [address] [id number] [place] [address] Radiation Oncology, Physician, [address] [place], [place] [id number] Social History Tobacco Use Types Packs/Day Years [...] Appointment [facility] [address] [id number] [place] [address] Marci Gonzalez, CABLE ENGINEER OUTSIDE PLANT [address] [place] [address] documented as of this encounter [...] ONCOLOGY Reference Point Dosage Given to Date [id number] Gy ARIA RADIATION ONCOLOGY Reference Point Session Dosage Given [id number] Gy ARIA RADIATION ONCOLOGY Plan ID [id number] [...] documented as of this encounter Care Teams Nanotechnology Technician Relationship Specialty Start Date End Date Comfort Siddiqi APRN [address] [place] [address] PCP - General 03/12/25 Km Wooten MD [address] [place] [address] C114D [place] [address] Consulting Physician Radiation Oncology 02/14/25 documented as of this encounter
--- OUTSIDE RECORDS SUMMARY | 2025-04-25 11:11 | XMS_ITS | Encounter Summary ---
Author Organization [facility] Address [address] [place] [id number] Care Team Providers Care Primary Special Educator Name Role Phone Tejal Saeed APRN Primary Care Provider [phone] Km Wooten MD Unavailable [phone] Encounter Details Date Type Department Care [...] Appointment [facility] Radiation [address] [id number] [place] [address] Marci Gonzalez, LABEL PASTER [address] [phone] documented as of this encounter Goals Goal [...] of this encounter Care Teams Primary Special Educator Relationship Specialty Start Date End Date Tejal Saeed, LABEL PASTER [address] [place] [address] PCP - General 11/07/20 03/11/25 Km Wooten MD [address] [phone] Consulting Physician Radiation Oncology 02/14/25 documented as of this encounter
--- OUTSIDE RECORDS SUMMARY | 2025-04-25 11:11 | XMS_ITS | Encounter Summary ---
Author Organization [facility] Address [address] [place] [address] Care Team Providers Care Manager Transfusion Name Role Phone Km Wooten MD Unavailable [phone] Comfort Siddiqi APRN Primary Care Provider [phone] Encounter Details Date Type Department Care Team [...] Appointment [facility] Radiation [address] [id number] [place] [address] Marci Gonzalez APRN [address] [phone] documented as of this encounter Goals Goal [...] as of this encounter Care Teams Manager Transfusion Relationship Specialty Start Date End Date Comfort Siddiqi APRN [address] [place] [address] PCP - General 03/12/25 Km Wooten MD [address] [phone] Consulting Physician Radiation Oncology 02/14/25 documented as of this encounter
--- OUTSIDE RECORDS SUMMARY | 2025-04-25 11:11 | XMS_ITS | Encounter Summary ---
Author Organization [facility] Address [address] [place] [address] Care Team Providers Care Call Center Team Leader Name Role Phone Km Wooten MD Unavailable [phone] Comfort Siddiqi APRN Primary Care Provider [phone] Encounter Details Date Type Department Care Team [...] Appointment [facility] Radiation [address] [id number] [place] [address] Marci Gonzalez APRN [address] [phone] documented as of this encounter Goals Goal [...] as of this encounter Care Teams Call Center Team Leader Relationship Specialty Start Date End Date Comfort Siddiqi APRN [address] [place] [address] PCP - General 03/12/25 Km Wooten MD [address] [phone] Consulting Physician Radiation Oncology 02/14/25 documented as of this encounter
--- OUTSIDE RECORDS SUMMARY | 2025-04-25 11:11 | XMS_ITS | Encounter Summary ---
Author Organization Healthcare Address [address] [place] [address] Care Team Providers Care Sunday School Missionary Name Role Phone Km Wooten MD Unavailable [phone] Comfort Siddiqi APRN Primary Care Provider [phone] Encounter Details Date Type Department Care Team (Late st Contact Info) Description 03/21/2025 Orders Only [facility] Radiation [address] [id number] [place] [address] Radiation Oncology, Physician, [address] [place], [place] [id number] Social History Tobacco Use Types Packs/Day Years [...] Appointment [facility] Radiation [address] [id number] [place] [address] Marci Gonzalez, METAL FILER [address] [place] [address] documented as of this encounter [...] ONCOLOGY Reference Point Dosage Given to Date [id number] Gy ARIA RADIATION ONCOLOGY Reference Point Session Dosage Given 1.54661203 Gy ARIA RADIATION ONCOLOGY Plan ID [id number] [...] documented as of this encounter Care Teams Sunday [employer] Missionary Relationship Specialty Start Date End Date Comfort Siddiqi APRN [address] [place] [address] PCP - General 03/12/25 Km Wooten MD [address] [place] [address] C114D [place] [address] Consulting Physician Radiation Oncology 02/14/25 documented as of this encounter
--- OUTSIDE RECORDS SUMMARY | 2025-04-25 11:11 | XMS_ITS | Encounter Summary ---
Author Organization Healthcare Address [address] [place] [address] Care Team Providers Care Insurance Counsel Name Role Phone Km Wooten MD Unavailable [phone] Comfort Siddiqi APRN Primary Care Provider [phone] Encounter Details Date Type Department Care Team (Late st Contact Info) Description 03/27/2025 Orders Only [facility] Radiation [address] [id number] [place] [address] Radiation Oncology, Physician, [address] [place], [place] [address] Social History Tobacco Use Types Packs/Day Years [...] Appointment [facility] Radiation [address] [id number] [place] [address] Marci Gonzalez, DEPOSIT CLERK [address] [place] [address] documented as of this encounter [...] ONCOLOGY Reference Point Dosage Given to Date 9.70574983 Gy ARIA RADIATION ONCOLOGY Reference Point Session Dosage Given 1.43332802 Gy ARIA RADIATION ONCOLOGY Plan ID [id number] [...] as of this encounter Care Teams Insurance Counsel Relationship Specialty Start Date End Date Comfort Siddiqi APRN [address] [place] [address] PCP - General 03/12/25 Km Wooten MD [address] [place] [address] [address]D [place] [address] Consulting Physician Radiation Oncology 02/14/25 documented as of this encounter
--- OUTSIDE RECORDS SUMMARY | 2025-04-25 11:11 | XMS_ITS | Encounter Summary ---
Author Organization [facility] Address [address] [place] [address] Care Team Providers Care Bass Singer Name Role Phone Km Wooten MD Unavailable [phone] Comfort Siddiqi APRN Primary Care Provider [phone] Encounter Details Date Type Department Care Team [...] Appointment [facility] Radiation [address] [id number] [place] [address] Marci Gonzalez APRN [address] [phone] documented as of this encounter Goals Goal [...] documented as of this encounter Care Teams Bass Singer Relationship Specialty Start Date End Date Comfort Siddiqi APRN [address] [place] [address] PCP - General 03/12/25 Km Wooten MD [address] [phone] Consulting Physician Radiation Oncology 02/14/25 documented as of this encounter
--- OUTSIDE RECORDS SUMMARY | 2025-04-25 11:11 | XMS_ITS | Encounter Summary ---
Author Organization [facility] Address [address] [place] [address] Care Team Providers Care House Principal Name Role Phone Km Wooten MD Unavailable [phone] Comfort Siddiqi APRN Primary Care Provider [phone] Encounter Details Date Type Department Care Team [...] Appointment [facility] Radiation [address] [id number] [place] [address] Marci Gonzalez APRN [address] [phone] documented as of this encounter Goals Goal [...] documented as of this encounter Care Teams House Principal Relationship Specialty Start Date End Date Comfort Siddiqi APRN [address] [place] [address] PCP - General 03/12/25 Km Wooten MD [address] [phone] Consulting Physician Radiation Oncology 02/14/25 documented as of this encounter
--- OUTSIDE RECORDS SUMMARY | 2025-04-25 11:11 | XMS_ITS | Encounter Summary ---
Author Organization Healthcare Address [address] [place] [address] Care Team Providers Care Wellness Ambassador Name Role Phone Km Wooten MD Unavailable [phone] Comfort Siddiqi APRN Primary Care Provider [phone] Encounter Details Date Type Department Care Team (Late st Contact Info) Description 03/22/2025 Orders Only [facility] Radiation [address] [id number] [place] [address] Radiation Oncology, Physician, [address] [place], [place] [id number] Social History Tobacco Use Types Packs/Day Years [...] Appointment [facility] Radiation [address] [id number] [place] [address] Marci Gonzalez, GUEST RELATIONS RECEPTIONIST [address] [place] [address] documented as of this encounter [...] ONCOLOGY Reference Point Dosage Given to Date 3.07623507 Gy ARIA RADIATION ONCOLOGY Reference Point Session Dosage Given 1.40577288 Gy ARIA RADIATION ONCOLOGY Plan ID [id number] [...] documented as of this encounter Care Teams Wellness Ambassador Relationship Specialty Start Date End Date Comfort Siddiqi APRN [address] [place] [address] PCP - General 03/12/25 Km Wooten MD [address] [place], [place] 125434D [place] [address] Consulting Physician Radiation Oncology 02/14/25 documented as of this encounter
--- OUTSIDE RECORDS SUMMARY | 2025-04-25 11:11 | XMS_ITS | Encounter Summary ---
Author Organization Healthcare Address [address] [place] [address] Care Team Providers Care Senior Financial Consultant Name Role Phone Km Wooten MD Unavailable [phone] Comfort Siddiqi APRN Primary Care Provider [phone] Encounter Details Date Type Department Care Team (Late st Contact Info) Description 04/08/2025 Orders Only [facility] Radiation [address] [id number] [place] [address] Radiation Oncology, Physician, [address] [place], [place] [phone] Social History Tobacco Use Types Packs/Day Years [...] Appointment [facility] Radiation [address] [id number] [place] [address] Marci Gonzalez, BISQUE CLEANER [address] [place] [address] documented as of this encounter [...] ONCOLOGY Reference Point Dosage Given to Date 25.71984973 Gy ARIA RADIATION ONCOLOGY Reference Point Session Dosage Given 1.08437053 Gy ARIA RADIATION ONCOLOGY Plan ID [id number] [...] as of this encounter Care Teams Senior Financial Consultant Relationship Specialty Start Date End Date Comfort Siddiqi APRN [address] [place] [address] PCP - General 03/12/25 Km Wooten MD [address] [place] [address] C[address]D [place] [address] Consulting Physician Radiation Oncology 02/14/25 documented as of this encounter
--- OUTSIDE RECORDS SUMMARY | 2025-04-25 11:11 | XMS_ITS | Encounter Summary ---
Author Organization Healthcare Address [address] [place] [address] Care Team Providers Care Die Reamer Name Role Phone Km Wooten MD Unavailable [phone] Comfort Siddiqi APRN Primary Care Provider [phone] Encounter Details Date Type Department Care Team (Late st Contact Info) Description 04/04/2025 Orders Only [facility] Radiation [address] [id number] [place] [address] Radiation Oncology, Physician, [address] [place], [place] [address] Social History Tobacco Use Types Packs/Day Years [...] Appointment [facility] Radiation [address] [id number] [place] [address] Marci Gonzalez, NUCLEAR REACTOR TECHNICIAN [address] [place] [address] documented as of this encounter [...] ONCOLOGY Reference Point Dosage Given to Date 21.91196417 Gy ARIA RADIATION ONCOLOGY Reference Point Session Dosage Given 1.12406209 Gy ARIA RADIATION ONCOLOGY Plan ID [id number] [...] documented as of this encounter Care Teams Die Reamer Relationship Specialty Start Date End Date Comfort Siddiqi APRN [address] [place] [address] PCP - General 03/12/25 Km Wooten MD [address] [place] [address] C[address]D [place] [address] Consulting Physician Radiation Oncology 02/14/25 documented as of this encounter
--- OUTSIDE RECORDS SUMMARY | 2025-04-25 11:12 | XMS_ITS | Encounter Summary ---
Author Organization [facility] [place] [facility] Address [address] [place] [address] Care Team Providers Care Technical Publications Manager Name Role Phone Km Wooten MD Unavailable [phone] Comfort Siddiqi APRN Primary Care Provider [phone] Encounter Details Date Type Department Care Team [...] Appointment [facility] Radiation [address] [id number] [place] [address] Marci Gonzalez APRN [address] [phone] documented as of this encounter Goals Goal [...] as of this encounter Care Teams Technical Publications Manager Relationship Specialty Start Date End Date Comfort Siddiqi APRN [address] [place] [address] PCP - General 03/12/25 mK Wooten MD [address] [phone] Consulting Physician Radiation Oncology 02/14/25 documented as of this encounter
--- OUTSIDE RECORDS SUMMARY | 2025-04-25 11:12 | XMS_ITS | Encounter Summary ---
Author Organization [facility] Address [address] [place] [address] Care Team Providers Care Licensing Registration Examiner Name Role Phone Km Wooten MD Unavailable [phone] Comfort Siddiqi APRN Primary Care Provider [phone] Encounter Details Date Type Department Care Team [...] Appointment [facility] Radiation [address] [id number] [place] [address] Marci Gonzalez APRN [address] [phone] documented as of this encounter Goals Goal [...] documented as of this encounter Care Teams Licensing Registration Examiner Relationship Specialty Start Date End Date Comfort Siddiqi APRN [address] [place] [address] PCP - General 03/12/25 Km Wooten MD [address] [phone] Consulting Physician Radiation Oncology 02/14/25 documented as of this encounter
[2025-04-25 11:41] VITALS: BP 134/77; PULSE 56; RESP 18; TEMP 36.9; O2SAT 98
[2025-04-25 12:22] LABS: Squamous Epithelial Cell,Urine Occasional #/hpf (0-5); WBC,Urine Occasional #/hpf (0-3)
== END 2025-04-25 11:42 | disposition home or self-care (01) ==
PROVIDERS: Emergency Provider Student in an Organized Health Care Education/Training Program; PCP Family Medicine
DX: B37.42 Candidal balanitis (principal); C19 Malignant neoplasm of rectosigmoid junction; Z92.3 Personal history of irradiation
CPT/HCPCS: 81001; 99283

== ENCOUNTER 2025-05-15 15:15 | Outpatient (CLI) | payer OTHER, SELFPAY ==
--- OUTSIDE RECORDS SUMMARY | 2025-03-18 07:34 | XMS_ITS | Encounter Summary ---
Author Organization Healthcare Address [address] [id number] Care Team Providers Care Manager User Interface Name Role Phone Km Wooten MD Unavailable [phone] Comfort Siddiqi APRN Primary Care Provider [phone] Encounter Details Date Type Department Care Team (Latest Contact Info) Description 03/18/2025 8:34 AM EDT - 03/18/2025 11:59 PM EDT Hospital Encounter PAV CC Radiation [address] [id number] [place] [address] Discharge Disposition: Still a Patient Social History [...] PM EST Appointment PAV CC Radiation 800 [facility] [id number] [place] [address] Marci Gonzalez APRN [address] [place] [address] documented as of this encounter Goals [...] as of this encounter Care Teams Manager User Interface Relationship Specialty Start Date End Date Comfort Siddiqi APRN [address] [place] [address] PCP - General 03/12/25 Km Wooten MD [address] [place] [address] Consulting Physician Radiation Oncology 02/14/25 documented as of this encounter
--- OUTSIDE RECORDS SUMMARY | 2025-03-21 12:48 | XMS_ITS | Encounter Summary ---
Author Organization [facility] Address [address] [place] [address] Care Team Providers Care Electrical Continuity Inspector Name Role Phone Km Wooten MD Unavailable [phone] Comfort Siddiqi APRN Primary Care Provider [phone] Encounter Details Date Type Department Care Team (Latest Contact Info) Description 03/21/2025 1:48 PM EDT - 03/21/2025 2:11 PM EDT Hospital Encounter PAV CC Radiation [address] [id number] [place] [address] Km Wooten MD [address] [place] [address] Discharge Disposition: Still a Patient Social History [...] Appointment PAV CC Radiation [address] [id number] [place] [address] Marci Gonzalez APRN [address] [place] [address] documented as of this encounter Goals Goal [...] has been complete d for the patient 03/21/2025 2:17 PM EDT A Body Mass Index follow-up plan has been documented for the patient 03/15/2025 11:31 AM EDT documented as of this encounter Care Teams Electrical Continuity Inspector Relationship Specialty Start Date End Date Comfort Siddiqi APRN [address] [place] [address] PCP - General 03/12/25 Km Wooten MD [address] [address] Consulting Physician Radiation Oncology 02/14/25 documented as of this encounter
--- OUTSIDE RECORDS SUMMARY | 2025-03-21 13:12 | XMS_ITS | Encounter Summary ---
Author Organization [facility] Address [address] [id number] Care Team Providers Care Core Man Name Role Phone Km Wooten MD Unavailable [phone] Comfort Siddiqi APRN Primary Care Provider [phone] Reason for Visit * Reason Comments OTV Encounter Details Date Type Department Care Team (Latest Contact Info) Description 03/21/2025 2:12 PM EDT - 03/21/2025 11:59 PM EDT Hospital Encounter PAV CC Radiation [address] [id number] [place] [address] Km Wooten MD [address] [place] [address] Malignant neoplasm of rectum (CMS/HCC) (Primary Dx) [...] Sign Reading Time Taken Comments Blood Pressure 122/74 03/21/2025 2:17 PM EDT Pulse 80 03/21/2025 2:17 PM EDT Temperature - - Respiratory Rate 16 03/21/2025 2:17 PM EDT Oxygen Saturation 97% 03/21/2025 2:17 PM EDT Inhaled Oxygen Concentration - - Weight 126 kg (276 lb 10.8 oz) 03/21/2025 2:17 P M EDT Height - - Body Mass Index 44.66 03/12/2025 9:47 AM EDT documented in this [...] Progress Notes - Joel Xie MD - 03/21/2025 2:40 PM EDT RADIATION ONCOLOGY ON TREATMENT VISIT Patient Name: Carlos Tripp : 1970 Date: 03/21/2025 REFERRING PHYSICIAN: Cno Sumner MD - Colorectal Surgery DIAGNOSIS: Adenocarcinoma of the lower rectum STAGE: Stage III cT3 cN2a M0 Cancer Staging No matching staging information was found for the patient. HISTORY OF PRESENT ILLNESS: Carlos Tripp is a 55 y.o. 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 He is undergoing LACHELLE with induction concurrent chemoradiation. Radiation Treatments Active Plans Pelvis& [id number] [[id number]] Most recent treatment: Dose planned: 200 cGy (fraction 1 on 03/21/2025) Total: Dose planned: 5,000 cGy (25 fractions) Elapsed Days: 0 Reference Points Pelvis Most recent treatment: Dose given: 200 cGy (on 03/21/2025) Total: Dose given: 200 cGy Elapsed Days: 0 SUBJECTIVE: He reports No diarrhea No dysuria No fatigue OBJECTIVE: Visit Vitals BP 122/74 Pulse 80 Resp 16 Wt 126 kg (276 lb 10.8 oz) SpO2 97% BMI 44.66 kg/m?? Smoking Status Never BSA 2.42 m?? CONSTITUTIONAL: 55 y.o. male. No acute distress noted. LABS: No results found for: WBC , HGB , HCT , MCV , PLT TECHNICAL: Treatment imaging has been reviewed and found to be acceptable. Imaging on machine showsgood alignment with treatment planning imaging. SIDE EFFECTS: as above ASSESSMENT: The patient is tolerating treatment. PLAN: Continue radiation therapy as planned. Joel Xie MD Radiation Oncology, PGY-2 Cosigned by Km Wooten MD at 03/21/2025 3:41 PM EDT Associated attestation - Km Wooten MD - 03/21/2025 3:41 PM EDT I saw and evaluated the patient with the resident/fellow. I discussed the case with the resident/fellow and agree with the findings and plan as documented. documented in this encounter Plan of Treatment Upcoming Encounters Date Type Department Care Team (Late st Contact Info) Description 05/27/2025 2:20 PM EST Appointment PAV CC Radiation [address] [facility]. HG[address]T [place] [address] Marci Gonzalez, ENTERPRISE MANAGER [address] [facility] [address] [place] [address] documented as of this encounter Goals Goal [...] documented as of this encounter Care Teams Core Man Relationship Specialty Start Date End Date Comfort Siddiqi APRN [address] [place] [address] PCP - General 03/12/25 Km Wooten MD [address] [place] [address] Consulting Physician Radiation Oncology 02/14/25 documented as of this encounter
--- OUTSIDE RECORDS SUMMARY | 2025-03-22 12:49 | XMS_ITS | Encounter Summary ---
Author Organization [facility] Address [address] [address] [id number] Care Team Providers Care Pest Locator Name Role Phone Km Wooten MD Unavailable [phone] Comfort Siddiqi APRN Primary Care Provider [phone] Encounter Details Date Type Department Care Team (Latest Contact Info) Description 03/22/2025 1:49 PM EDT - 03/22/2025 11:59 PM EDT Hospital Encounter [facility] [address] [id number] [place] [address] Discharge Disposition: Still a Patient Social History [...] PM EST Appointment [facility] Radiation 800 [facility]. AP674A [place] [address] Marci Gonzalez APRN [address] [place] [address] documented as of this encounter Goals [...] documented as of this encounter Care Teams Pest Locator Relationship Specialty Start Date End Date Comfort Siddiqi APRN [address] [place] [address] PCP - General 03/12/25 Km Wooten MD [address] [place] [address] Consulting Physician Radiation Oncology 02/14/25 documented as of this encounter
--- OUTSIDE RECORDS SUMMARY | 2025-03-25 04:30 | XMS_ITS | Encounter Summary ---
Author Organization Healthcare Address [address] [id number] Care Team Providers Care Home Administrator Name Role Phone Km Wooten MD Unavailable [phone] Comfort Siddiqi APRN Primary Care Provider [phone] Encounter Details Date Type Department Care Team (Latest Contact Info) Description 03/25/2025 5:30 AM EDT - 03/25/2025 1:34 PM EDT Hospital Encounter [facility] Radiation [address] [id number] [place] [address] Discharge Disposition: Still a Patient Social History [...] PM EST Appointment [facility] Radiation 800 [facility] [id number] [place] [address] Marci Gonzalez APRN [address] [place] [address] documented as of this encounter Goals [...] documented as of this encounter Care Teams Home Administrator Relationship Specialty Start Date End Date Comfort Siddiqi APRN [address] [place] [address] PCP - General 03/12/25 Km Wooten MD [address] [place] [address] Consulting Physician Radiation Oncology 02/14/25 documented as of this encounter
--- OUTSIDE RECORDS SUMMARY | 2025-03-25 12:35 | XMS_ITS | Encounter Summary ---
Author Organization Healthcare Address [address] [id number] Care Team Providers Care Mobile Lab Technician Name Role Phone Km Wooten MD Unavailable [phone] Comfort Siddiqi APRN Primary Care Provider [phone] Encounter Details Date Type Department Care Team (Latest Contact Info) Description 03/25/2025 1:35 PM EDT - 03/25/2025 11:59 PM EDT Hospital Encounter [facility] [address] [id number] [place] [address] Discharge Disposition: Still a Patient Social History [...] PM EST Appointment [facility] 800 [facility]. [id number] [place] [address] Marci Gonzalez APRN [address] [place] [address] documented as of this encounter Goals [...] documented as of this encounter Care Teams Mobile Lab Technician Relationship Specialty Start Date End Date Comfort Siddiqi APRN [address] [place] [address] PCP - General 03/12/25 Km Wooten MD [address] [place] [address] Consulting Physician Radiation Oncology 02/14/25 documented as of this encounter
--- OUTSIDE RECORDS SUMMARY | 2025-03-26 12:30 | XMS_ITS | Encounter Summary ---
Author Organization Healthcare Address [address] [id number] Care Team Providers Care Product Test Engineer Name Role Phone Km Wooten MD Unavailable [phone] Comfort Siddiqi APRN Primary Care Provider [phone] Encounter Details Date Type Department Care Team (Latest Contact Info) Description 03/26/2025 1:30 PM EDT - 03/26/2025 11:59 PM EDT Hospital Encounter [facility] [address] [id number] [place] [address] Discharge Disposition: Still a Patient Social History [...] PM EST Appointment [facility] 800 [facility]. [id number] [place] [address] Marci Gonzalez APRN [address] [place] [address] documented as of this encounter Goals [...] documented as of this encounter Care Teams Product Test Engineer Relationship Specialty Start Date End Date Comfort Siddiqi APRN [address] [place] [address] PCP - General 03/12/25 Km Wooten MD [address] [place] [address] Consulting Physician Radiation Oncology 02/14/25 documented as of this encounter
--- OUTSIDE RECORDS SUMMARY | 2025-03-27 12:38 | XMS_ITS | Encounter Summary ---
Author Organization Healthcare Address [address] [id number] Care Team Providers Care Map Editor Name Role Phone Km Wooten MD Unavailable [phone] Comfort Siddiqi APRN Primary Care Provider [phone] Encounter Details Date Type Department Care Team (Latest Contact Info) Description 03/27/2025 1:38 PM EDT - 03/27/2025 11:59 PM EDT Hospital Encounter [facility] [address] [place] [address] Discharge Disposition: Still a Patient Social History [...] PM EST Appointment [facility] 800 [facility]. [id number] [place] [address] Marci Gonzalez APRN [address] [place] [address] documented as of this encounter Goals [...] documented as of this encounter Care Teams Map Editor Relationship Specialty Start Date End Date Comfort Siddiqi APRN [address] [place] [address] PCP - General 03/12/25 Km Wooten MD [address] [place] [address] Consulting Physician Radiation Oncology 02/14/25 documented as of this encounter
--- OUTSIDE RECORDS SUMMARY | 2025-03-28 12:37 | XMS_ITS | Encounter Summary ---
Author Organization Healthcare Address [address] [id number] Care Team Providers Care Icebox Worker Name Role Phone Km Wooten MD Unavailable [phone] Comfort Siddiqi APRN Primary Care Provider [phone] Encounter Details Date Type Department Care Team (Latest Contact Info) Description 03/28/2025 1:37 PM EDT - 03/28/2025 1:53 PM EDT Hospital Encounter [facility] [address] [place] [address] Discharge Disposition: Still a Patient Social History [...] PM EST Appointment [facility] 800 [facility]. [id number] [place] [address] Marci Gonzalez APRN [address] [place] [address] documented as of this encounter Goals [...] has been complete d for the patient 03/28/2025 2:04 PM EDT A Body Mass Index follow-up plan has been documented for the patient 03/15/2025 11:31 AM EDT documented as of this encounter Care Teams Icebox Worker Relationship Specialty Start Date End Date Comfort Siddiqi APRN [address] [place] [address] PCP - General 03/12/25 Km Wooten MD [address] [place] [address] Consulting Physician Radiation Oncology 02/14/25 documented as of this encounter
--- OUTSIDE RECORDS SUMMARY | 2025-03-28 12:54 | XMS_ITS | Encounter Summary ---
Author Organization [facility] Address [address] [id number] Care Team Providers Care Punch Press Feeder Name Role Phone Km Wooten MD Unavailable [phone] Comfort Siddiqi APRN Primary Care Provider [phone] Reason for Visit * Reason Comments OTV Encounter Details Date Type Department Care Team (Latest Contact Info) Description 03/28/2025 1:54 PM EDT - 03/28/2025 11:59 PM EDT Hospital Encounter [facility] [id number] [place] [address] Km Wooten MD [address] [place] [address] Malignant neoplasm of rectum (CMS/HCC) (Primary Dx) [...] Sign Reading Time Taken Comments Blood Pressure 129/81 03/28/2025 1:58 PM EDT Pulse 86 03/28/2025 1:58 PM EDT Temperature 36.8 C (98.3 F) 03/28/2025 1:58 PM EDT Respiratory Rate 18 03/28/2025 1:58 PM EDT Oxygen Saturation 96% 03/28/2025 1:58 PM EDT Inhaled Oxygen Concentration - - Weight 126 kg (277 lb 1.9 oz) 03/28/2025 1:58 PM EDT Height - - Body Mass Index 44.73 03/12/2025 9:47 AM EDT documented in this encounter Medications at Time of Discharge atorvastatin (Lipitor) 20 MG tablet Take 1 tablet by mouth daily. 01/11/2025 capecitabine (Xeloda) 500 MG chemo tablet Take 4 tablets (2,000 mg total) by mouth 2 times a day. Swallow whole with water. Do not crush or cut. cetirizine (ZyrTEC) 10 MG tablet Take 1 [...] encounter Miscellaneous Notes * Progress Notes - Km Wooten MD - 03/28/2025 2:20 PM EDT RADIATION ONCOLOGY ON TREATMENT VISIT Date of service: 03/28/2025 Patient Name: Carlos Tripp : 1970 Date: 03/28/2025 REFERRING PHYSICIAN: Con Sumner MD DIAGNOSIS: (lower) Rectal Adenocarcinoma Cancer Staging Malignant neoplasm of rectum (CMS/HCC) Staging form: Colon and Rectum, AJCC 8th Edition - Clinical: Stage IIIB (cT3, cN2a, cM0) - Unsigned HPI: Carlos Tripp is a 55 y.o. male with [id number] lower rectal adenocarcinoma receiving induction chemoradiation Radiation Treatments Active Plans Pelvis& inguinals_[id number] [A1A8] Most recent treatment: Dose planned: 200 cGy (fraction 6 on 03/28/2025) Total: Dose planned: 5,000 cGy (25 fractions) Elapsed Days: 7 Reference Points Pelvis Most recent treatment: Dose given: 200 cGy (on 03/28/2025) Total: Dose given: 1,200 cGy Elapsed Days: 7 SUBJECTIVE: He reports No dysuria No diarrhea OBJECTIVE: Visit Vitals BP 129/81 (BP Location: Left arm, Patient Position: Sitting, BP Cuff Size: Adult) Pulse 86 Temp 36.8 ??C (98.3 ??F) (Oral) Resp 18 Wt 126 kg (277 lb 1.9 oz) SpO2 96% BMI 44.73 kg/m?? Smoking Status Never BSA 2.42 m?? CONSTITUTIONAL: 55 y.o. male. No acute distress noted. LABS: TECHNICAL: Treatment imaging has been reviewed and found to be acceptable. Imaging on machine showsgood alignment with treatment planning imaging. SIDE EFFECTS: as above ASSESSMENT: The patient is tolerating treatment PLAN: Continue radiation therapy as planned. Km Wooten MD Grip Wrapper [facility] Department [place] [address] documented in this encounter Plan of Treatment Upcoming Encounters Date Type Department Care Team (Late st Contact Info) Description 05/27/2025 2:20 PM EST Appointment [facility] Radiation 800 [facility]. [id number] [place] [phone] Marci Gonzalez, DIRECTOR DATA ARCHITECTURE 800 [facility] [address] [place] [address] documented as of this encounter Goals Goal [...] documented as of this encounter Care Teams Punch Press Feeder Relationship Specialty Start Date End Date Comfort Siddiqi APRN [address] [place] [address] PCP - General 03/12/25 Km Wooten MD [address] [place] [address] Consulting Physician Radiation Oncology 02/14/25 documented as of this encounter
--- OUTSIDE RECORDS SUMMARY | 2025-03-29 12:25 | XMS_ITS | Encounter Summary ---
Author Organization Healthcare Address [address] [id number] Care Team Providers Care Slate Mixer Name Role Phone Km Wooten MD Unavailable [phone] Comfort Siddiqi APRN Primary Care Provider [phone] Encounter Details Date Type Department Care Team (Latest Contact Info) Description 03/29/2025 1:25 PM EDT - 03/29/2025 11:59 PM EDT Hospital Encounter [facility] [address] [id number] [place] [address] Discharge Disposition: Still a Patient Social History [...] PM EST Appointment [facility] [address] [id number] [place] [address] Marci Gonzalez APRN [address] [place] [address] documented as of this encounter Goals Goal [...] documented as of this encounter Care Teams Slate Mixer Relationship Specialty Start Date End Date Comfort Siddiqi APRN [address] [place] [address] PCP - General 03/12/25 Km Wooten MD [address] [address] Consulting Physician Radiation Oncology 02/14/25 documented as of this encounter
--- OUTSIDE RECORDS SUMMARY | 2025-04-01 04:30 | XMS_ITS | Encounter Summary ---
Author Organization [facility] Address [address] [id number] Care Team Providers Care Steel Checker Name Role Phone Km Wooten MD Unavailable [phone] Comfort Siddiqi APRN Primary Care Provider [phone] Encounter Details Date Type Department Care Team (Latest Contact Info) Description 04/01/2025 5:30 AM EDT - 04/01/2025 1:40 PM EDT Hospital Encounter [facility] [address] [id number] [place] [address] Discharge Disposition: Still a Patient Social History [...] PM EST Appointment [facility] [address] UK951I [place] [address] Marci Gonzalez APRN [address] [place] [address] documented as of this encounter Goals Goal [...] documented as of this encounter Care Teams Steel Checker Relationship Specialty Start Date End Date Comfort Siddiqi APRN [address] [place] [address] PCP - General 03/12/25 Km Wooten MD [address] [address] Consulting Physician Radiation Oncology 02/14/25 documented as of this encounter
--- OUTSIDE RECORDS SUMMARY | 2025-04-01 12:41 | XMS_ITS | Encounter Summary ---
Author Organization [facility] Address [address] [id number] Care Team Providers Care Aircraft Refueller Name Role Phone Km Wooten MD Unavailable [phone] Comfort Siddiqi APRN Primary Care Provider Encounter Details Date Type Department Care Team (Latest Contact Info) Description 04/01/2025 1:41 PM EDT - 04/01/2025 11:59 PM EDT Hospital Encounter [facility] [address] [id number] [place] [address] Discharge Disposition: Still a Patient Social History [...] PM EST Appointment [facility] [address] [id number] [place] [address] Marci Gonzalez APRN [address] [place] [address] documented as of this encounter Goals Goal [...] documented as of this encounter Care Teams Aircraft Refueller Relationship Specialty Start Date End Date Comfort Siddiqi APRN [address] [place] [address] PCP - General 03/12/25 Km Wooten MD [address] [address] Consulting Physician Radiation Oncology 02/14/25 documented as of this encounter
--- OUTSIDE RECORDS SUMMARY | 2025-04-02 12:58 | XMS_ITS | Encounter Summary ---
Author Organization Healthcare Address [address] [id number] Care Team Providers Care Hooking Machine Operator Name Role Phone Km Wooten MD Unavailable [phone] Comfort Siddiqi APRN Primary Care Provider [phone] Encounter Details Date Type Department Care Team (Latest Contact Info) Description 04/02/2025 1:58 PM EDT - 04/02/2025 11:59 PM EDT Hospital Encounter [facility] [address] [id number] [place] [address] Discharge Disposition: Still a Patient Social History [...] PM EST Appointment [facility] [address] [id number] [place] [address] Marci Gonzalez APRN [address] [place] [address] documented as of this encounter Goals Goal [...] documented as of this encounter Care Teams Hooking Machine Operator Relationship Specialty Start Date End Date Comfort Siddiqi APRN [address] [place] [address] PCP - General 03/12/25 Km Wooten MD [address] [address] Consulting Physician Radiation Oncology 02/14/25 documented as of this encounter
--- OUTSIDE RECORDS SUMMARY | 2025-04-03 12:29 | XMS_ITS | Encounter Summary ---
Author Organization Healthcare Address [address] [id number] Care Team Providers Care Color Maker Dyer Name Role Phone Km Wooten MD Unavailable [phone] Comfort Siddiqi APRN Primary Care Provider [phone] Encounter Details Date Type Department Care Team (Latest Contact Info) Description 04/03/2025 1:29 PM EDT - 04/03/2025 11:59 PM EDT Hospital Encounter [facility] [address] [id number] [place] [address] Discharge Disposition: Still a Patient Social History [...] PM EST Appointment [facility] [address] [id number] [place] [address] Marci Gonzalez APRN [address] [place] [address] documented as of this encounter Goals Goal [...] documented as of this encounter Care Teams Color Maker Dyer Relationship Specialty Start Date End Date Comfort Siddiqi APRN [address] [place] [address] PCP - General 03/12/25 Km Wooten MD [address] [address] Consulting Physician Radiation Oncology 02/14/25 documented as of this encounter
--- OUTSIDE RECORDS SUMMARY | 2025-04-04 12:47 | XMS_ITS | Encounter Summary ---
Author Organization Healthcare Address [address] [id number] Care Team Providers Care Optometry Professor Name Role Phone Km Wooten MD Unavailable [phone] Comfort Siddiqi APRN Primary Care Provider [phone] Encounter Details Date Type Department Care Team (Latest Contact Info) Description 04/04/2025 1:47 PM EDT - 04/04/2025 1:52 PM EDT Hospital Encounter [facility] [address] [id number] [place] [address] Discharge Disposition: Still a Patient Social History [...] PM EST Appointment [facility] [address] [id number] [place] [address] Marci Gonzalez APRN [address] [place] [address] documented as of this encounter Goals Goal [...] documented as of this encounter Care Teams Optometry Professor Relationship Specialty Start Date End Date Comfort Siddiqi APRN [address] [place] [address] PCP - General 03/12/25 Km Wooten MD [address] [address] Consulting Physician Radiation Oncology 02/14/25 documented as of this encounter
--- OUTSIDE RECORDS SUMMARY | 2025-04-04 12:53 | XMS_ITS | Encounter Summary ---
Author Organization [facility] Address [address] [phone] Care Team Providers Care Community Health Representative Name Role Phone Km Wooten MD Unavailable [phone] Comfort Siddiqi APRN Primary Care Provider [phone] Reason for Visit * Reason Comments OTV Encounter Details Date Type Department Care Team (Latest Contact Info) Description 04/04/2025 1:53 PM EDT - 04/04/2025 11:59 PM EDT Hospital Encounter [facility] [address] [id number] [place] [address] Nancy Stanley MD [address] [place] [address] Malignant neoplasm of rectum (CMS/HCC) (Primary Dx) [...] Sign Reading Time Taken Comments Blood Pressure 119/76 04/04/2025 2:40 PM EDT Pulse 72 04/04/2025 2:40 PM EDT Temperature 37.2 C (99 F) 04/04/2025 2:40 PM EDT Respiratory Rate 18 04/04/2025 2:40 PM EDT Oxygen Saturation 97% 04/04/2025 2:40 PM EDT Inhaled Oxygen Concentration - - Weight 127 kg (279 lb 5.2 oz) 04/04/2025 2:40 PM EDT Height - - Body Mass Index 45.08 03/12/2025 9:47 AM EDT documented in this [...] encounter Miscellaneous Notes * Progress Notes - Purvi Randolph MD - 04/04/2025 2:20 PM EDT RADIATION ONCOLOGY ON TREATMENT VISIT Date of service: 04/04/2025 Patient Name: Carlos Tripp : 1970 Date: 04/04/2025 REFERRING PHYSICIAN: Con Sumner MD DIAGNOSIS: (lower) Rectal Adenocarcinoma Cancer Staging Malignant neoplasm of rectum (CMS/HCC) Staging form: Colon and Rectum, AJCC 8th Edition - Clinical: Stage IIIB (cT3, cN2a, cM0) - Unsigned HPI: Carlos Tripp is a 55 y.o. male with [id number] lower rectal adenocarcinoma receiving induction chemoradiation Radiation Treatments Active Plans Pelvis& inguinals_[id number] [A1A8] Most recent treatment: Dose planned: 200 cGy (fraction 11 on 04/04/2025) Total: Dose planned: 5,000 cGy (25 fractions) Elapsed Days: 14 Reference Points Pelvis Most recent treatment: Dose given: 200 cGy (on 04/04/2025) Total: Dose given: 2,200 cGy Elapsed Days: 14 SUBJECTIVE: He reports Fatigue No dysuria No diarrhea Reports small, firm bowel movements with straining; with no hematochezia OBJECTIVE: Visit Vitals BP 119/76 (BP Location: Right arm, Patient Position: Sitting, BP Cuff Size: Large adult long) Pulse 72 Temp 37.2 ??C (99 ??F) (Oral) Resp 18 Wt 127 kg (279 lb 5.2 oz) SpO2 97% BMI 45.08 kg/m?? Smoking Status Never BSA 2.43 m?? CONSTITUTIONAL: 55 y.o. male. No acute distress noted. Has not started previously recommended Miralax LABS: TECHNICAL: Treatment imaging has been reviewed and found to be acceptable. Imaging on machine showsgood alignment with treatment planning imaging. SIDE EFFECTS: as above ASSESSMENT: The patient is tolerating treatment PLAN: Continue radiation therapy as planned. Start OTC Miralax, titrate to soft regular bowel movements; discontinue in case of diarrhea Maintain adequate hydration, electrolyte consumption and dietary fiber consumption. Purvi Randolph MD, PGY-3 Resident Physician, Radiation Oncology [facility] Pager: [phone] \ Cosigned by Nancy Stanley MD at 04/05/2025 7:02 AM EDT Associated attestation - Nancy Stanley MD - 04/05/2025 7:02 AM EDT I saw and evaluated the patient with the resident/fellow. I discussed the case with the resident/fellow and agree with the findings and plan as documented. documented in this encounter Plan of Treatment Upcoming Encounters Date Type Department Care Team (Late st Contact Info) Description 05/27/2025 2:20 PM EST Appointment [facility] 800 [facility] [id number] [place] [address] Marci Gonzalez, TARUN [address] [id number] [place] [address] documented as of this encounter [...] documented as of this encounter Care Teams Community Health Representative Relationship Specialty Start Date End Date Comfort Siddiqi APRN [address] [place] [address] PCP - General 03/12/25 Km Wooten MD [address] 612584D [place] [address] Consulting Physician Radiation Oncology 02/14/25 documented as of this encounter
--- OUTSIDE RECORDS SUMMARY | 2025-04-05 13:06 | XMS_ITS | Encounter Summary ---
Author Organization Healthcare Address [address] [id number] Care Team Providers Care Fruit I Farmworker Name Role Phone Km Wooten MD Unavailable [phone] Comfort Siddiqi APRN Primary Care Provider [phone] Encounter Details Date Type Department Care Team (Latest Contact Info) Description 04/05/2025 2:06 PM EDT - 04/05/2025 11:59 PM EDT Hospital Encounter [facility] [address] [id number] [place] [address] Discharge Disposition: Still a Patient Social History [...] PM EST Appointment [facility] [address] [id number] [place] [address] Marci Gonzalez APRN [address] [place] [address] documented as of this encounter Goals Goal [...] documented as of this encounter Care Teams Fruit I Farmworker Relationship Specialty Start Date End Date Comfort Siddiqi APRN [address] [place] [address] PCP - General 03/12/25 Km Wooten MD [address] [address] Consulting Physician Radiation Oncology 02/14/25 documented as of this encounter
--- OUTSIDE RECORDS SUMMARY | 2025-04-08 04:30 | XMS_ITS | Encounter Summary ---
Author Organization Healthcare Address [address] [id number] Care Team Providers Care Travel Ticketing Reviewer Name Role Phone Km Wooten MD Unavailable [phone] Comfort Siddiqi APRN Primary Care Provider [phone] Encounter Details Date Type Department Care Team (Latest Contact Info) Description 04/08/2025 5:30 AM EDT - 04/08/2025 1:37 PM EDT Hospital Encounter [facility] [address] [id number] [place] [address] Discharge Disposition: Still a Patient Social History [...] PM EST Appointment [facility] [address] [id number] [place] [address] Marci Gonzalez APRN [address] [place] [address] documented as of this encounter Goals Goal [...] documented as of this encounter Care Teams Travel Ticketing Reviewer Relationship Specialty Start Date End Date Comfort Siddiqi APRN [address] [place] [address] PCP - General 03/12/25 Km Wooten MD [address] [address] Consulting Physician Radiation Oncology 02/14/25 documented as of this encounter
--- OUTSIDE RECORDS SUMMARY | 2025-04-08 12:38 | XMS_ITS | Encounter Summary ---
Author Organization Healthcare Address [address] [id number] Care Team Providers Care Coffee Urn Attendant Name Role Phone Km Wooten MD Unavailable [phone] Comfort Siddiqi APRN Primary Care Provider [phone] Encounter Details Date Type Department Care Team (Latest Contact Info) Description 04/08/2025 1:38 PM EDT - 04/08/2025 11:59 PM EDT Hospital Encounter [facility] [address] [id number] [place] [address] Discharge Disposition: Still a Patient Social History [...] PM EST Appointment [facility] [address] [id number] [place] [address] Marci Gonzalez APRN [address] [place] [address] documented as of this encounter Goals Goal [...] documented as of this encounter Care Teams Coffee Urn Attendant Relationship Specialty Start Date End Date Comfort Siddiqi APRN [address] [place] [address] PCP - General 03/12/25 Km Wooten MD [address] [address] Consulting Physician Radiation Oncology 02/14/25 documented as of this encounter
--- OUTSIDE RECORDS SUMMARY | 2025-04-09 12:45 | XMS_ITS | Encounter Summary ---
Author Organization Healthcare Address [address] [id number] Care Team Providers Care Community Health Education Coordinator Name Role Phone Km Wooten MD Unavailable [phone] Comfort Siddqii APRN Primary Care Provider [phone] Encounter Details Date Type Department Care Team (Latest Contact Info) Description 04/09/2025 1:45 PM EDT - 04/09/2025 11:59 PM EDT Hospital Encounter [facility] [address] [id number] [place] [address] Discharge Disposition: Still a Patient Social History [...] PM EST Appointment [facility] [id number] [place] [address] Macri Gonzalez APRN [address] [place] [address] documented as of this encounter Goals Goal [...] of this encounter Care Teams Community Health Education Coordinator Relationship Specialty Start Date End Date Comfort Siddiqi APRN [address] [place] [address] PCP - General 03/12/25 Km Wooten MD [address] [address] Consulting Physician Radiation Oncology 02/14/25 documented as of this encounter
--- OUTSIDE RECORDS SUMMARY | 2025-04-10 12:31 | XMS_ITS | Encounter Summary ---
Author Organization [facility] Address [address] [id number] Care Team Providers Care Superintendent Circus Name Role Phone Km Wooten MD Unavailable [phone] Comfort Siddiqi APRN Primary Care Provider [phone] Encounter Details Date Type Department Care Team (Latest Contact Info) Description 04/10/2025 1:31 PM EDT - 04/10/2025 11:59 PM EDT Hospital Encounter [facility] CC Radiation [address] [id number] [place] [address] Discharge Disposition: Still a Patient Social History [...] PM EST Appointment [facility] Radiation [address] LZ303M [place] [address] Marci Gonzalez APRN [address] [place] [address] documented as of this encounter Goals Goal [...] as of this encounter Care Teams Superintendent Circus Relationship Specialty Start Date End Date Comfort Siddiqi APRN [address] [place] [address] PCP - General 03/12/25 Km Wooten MD [address] [address] Consulting Physician Radiation Oncology 02/14/25 documented as of this encounter
--- OUTSIDE RECORDS SUMMARY | 2025-04-11 12:31 | XMS_ITS | Encounter Summary ---
Author Organization Healthcare Address [address] [id number] Care Team Providers Care Drencher Name Role Phone Km Wooten MD Unavailable Comfort Siddiqi APRN Primary Care Provider [phone] Encounter Details Date Type Department Care Team (Latest Contact Info) Description 04/11/2025 1:31 PM EDT - 04/11/2025 1:49 PM EDT Hospital Encounter [facility] CC Radiation [address] KX230C [place] [address] Discharge Disposition: Still a Patient Social History [...] PM EST Appointment [facility] CC Radiation [address] EB[address]Q [place] [address] Marci Gonzalez APRN [address] [place] [address] documented as of this encounter Goals Goal [...] documented as of this encounter Care Teams Drencher Relationship Specialty Start Date End Date Comfort Siddiqi APRN [address] [place] [address] PCP - General 03/12/25 Km Wooten MD [address] [address] Consulting Physician Radiation Oncology 02/14/25 documented as of this encounter
--- OUTSIDE RECORDS SUMMARY | 2025-04-11 12:50 | XMS_ITS | Encounter Summary ---
Author Organization [facility] Address [address] [id number] Care Team Providers Care Bread Packer Name Role Phone Km Wooten MD Unavailable [phone] Comfort Siddiqi APRN Primary Care Provider [phone] Reason for Visit * Reason Comments OTV Encounter Details Date Type Department Care Team (Latest Contact Info) Description 04/11/2025 1:50 PM EDT - 04/11/2025 11:59 PM EDT Hospital Encounter [facility] [address] SF[address]H [place] [address] Km Wooten MD [address] [place] [address] Malignant neoplasm of rectum (CMS/HCC) (Primary Dx) [...] Sign Reading Time Taken Comments Blood Pressure 110/67 04/11/2025 1:53 PM EDT Pulse 80 04/11/2025 1:53 PM EDT Temperature 36.8 C (98.2 F) 04/11/2025 1:53 PM EDT Respiratory Rate 16 04/11/2025 1:53 PM EDT Oxygen Saturation 96% 04/11/2025 1:53 PM EDT Inhaled Oxygen Concentration - - Weight 124 kg (272 lb 4.3 oz) 04/11/2025 1:53 PM EDT Height - - Body Mass Index 43.95 03/12/2025 9:47 AM EDT documented in this [...] Progress Notes - Purvi Randolph MD - 04/11/2025 2:20 PM EDT RADIATION ONCOLOGY ON TREATMENT VISIT Date of service: 04/11/2025 Patient Name: Carlos Tripp : 1970 Date: 04/11/2025 REFERRING PHYSICIAN: Con Sumner MD DIAGNOSIS: (lower) Rectal Adenocarcinoma Cancer Staging Malignant neoplasm of rectum (CMS/HCC) Staging form: Colon and Rectum, AJCC 8th Edition - Clinical: Stage IIIB (cT3, cN2a, cM0) - Unsigned HPI: Carlos Tripp is a 55 y.o. male with [id number] lower rectal adenocarcinoma receiving induction chemoradiation Radiation Treatments Active Plans Pelvis& inguinals_PTV50 [A1A8] Most recent treatment: Dose planned: 200 cGy (fraction 16 on 04/11/2025) Total: Dose planned: 5,000 cGy (25 fractions) Elapsed Days: 21 Reference Points Pelvis Most recent treatment: Dose given: 200 cGy (on 04/11/2025) Total: Dose given: 3,200 cGy Elapsed Days: 21 SUBJECTIVE: He reports Mild fatigue Mild dysuria ('07/06'), but no diarrhea Improved constipation with Miralax PRN, and dietary Good compliance and tolerance with oral Capecitabine He denies: Active rectal pain, painful skin reactions, ongoing rectal bleeding OBJECTIVE: Visit Vitals BP 110/67 Pulse 80 Temp 36.8 ??C (98.2 ??F) Resp 16 Wt 124 kg (272 lb 4.3 oz) SpO2 96% BMI 43.95 kg/m?? Smoking Status Never BSA 2.4 m?? CONSTITUTIONAL: 55 y.o. male. No acute distress noted. Has not started previously recommended Miralax LABS: TECHNICAL: Treatment imaging has been reviewed and found to be acceptable. Imaging on machine showsgood alignment with treatment planning imaging. SIDE EFFECTS: as above ASSESSMENT: The patient is tolerating treatment PLAN: Continue radiation therapy as planned. Continue OTC Miralax, titrate to soft regular bowel movements; discontinue in case of diarrhea Maintain adequate hydration, electrolyte consumption and dietary fiber consumption. Call back before next visit, in case of increased symptoms to evaluate changes in symptomatic management. Purvi Randolph MD, PGY-3 Resident Physician, Radiation Oncology [facility] Pager: [phone] Cosigned by Km Wooten MD at 04/11/2025 2:57 PM EDT Associated attestation - Km Wooten MD - 04/11/2025 2:57 PM EDT I saw and evaluated the patient with the resident/fellow. I discussed the case with the resident/fellow and agree with the findings and plan as documented. documented in this encounter Plan of Treatment Upcoming Encounters Date Type Department Care Team (Late st Contact Info) Description 05/27/2025 2:20 PM EST Appointment [facility] [address] [id number] [place] [address] Marci Gonzalez, TELEPHONE DIAPHRAGM ASSEMBLER [address] [facility] [address] [place] [address] documented as of this encounter [...] documented as of this encounter Care Teams Bread Packer Relationship Specialty Start Date End Date Comfort Siddiqi APRN [address] [place] [address] PCP - General 03/12/25 Km Wooten MD [address] [place] [phone] Consulting Physician Radiation Oncology 02/14/25 documented as of this encounter
--- OUTSIDE RECORDS SUMMARY | 2025-04-12 12:42 | XMS_ITS | Encounter Summary ---
Author Organization [facility] Address [address] [id number] Care Team Providers Care Mechanical Engineering Draftsperson Name Role Phone Km Wooten MD Unavailable [phone] Comfort Siddiqi APRN Primary Care Provider [phone] Encounter Details Date Type Department Care Team (Latest Contact Info) Description 04/12/2025 1:42 PM EDT - 04/12/2025 11:59 PM EDT Hospital Encounter [facility] [address] [id number] [place] [address] Discharge Disposition: Still a Patient Social History [...] PM EST Appointment [facility] [address] [id number] [place] [address] Marci Gonzalez APRN [address] [place] [address] documented as of this encounter Goals Goal [...] documented as of this encounter Care Teams Mechanical Engineering Draftsperson Relationship Specialty Start Date End Date Comfort Siddiqi APRN [address] [place] [address] PCP - General 03/12/25 Km Wooten MD [address] [address] Consulting Physician Radiation Oncology 02/14/25 documented as of this encounter
--- OUTSIDE RECORDS SUMMARY | 2025-04-15 07:33 | XMS_ITS | Encounter Summary ---
Author Organization [facility] Address [address] [id number] Care Team Providers Care Secondary Teacher Name Role Phone Km Wooten MD Unavailable [phone] Comfort Siddiqi APRN Primary Care Provider [phone] Encounter Details Date Type Department Care Team (Latest Contact Info) Description 04/15/2025 8:33 AM EDT - 04/15/2025 1:26 PM EDT Hospital Encounter [facility] [address] [id number] [place] [address] Discharge Disposition: Still a Patient Social History [...] PM EST Appointment [facility] [address] CY776I [place] [address] Marci Gonzalez APRN [address] [place] [address] documented as of this encounter Goals Goal [...] documented as of this encounter Care Teams Secondary Teacher Relationship Specialty Start Date End Date Comfort Siddiqi APRN [address] [place] [address] PCP - General 03/12/25 Km Wooten MD [address] [address] Consulting Physician Radiation Oncology 02/14/25 documented as of this encounter
--- OUTSIDE RECORDS SUMMARY | 2025-04-15 12:27 | XMS_ITS | Encounter Summary ---
Author Organization Healthcare Address [address] [id number] Care Team Providers Care Curing Supervisor Name Role Phone Km Wooten MD Unavailable [phone] Comfort Siddiqi APRN Primary Care Provider [phone] Encounter Details Date Type Department Care Team (Latest Contact Info) Description 04/15/2025 1:27 PM EDT - 04/15/2025 11:59 PM EDT Hospital Encounter [facility] [address] [id number] [place] [address] Discharge Disposition: Still a Patient Social History [...] PM EST Appointment [facility] [address] [id number] [place] [address] Marci Gonzalez APRN [address] [place] [address] documented as of this encounter Goals Goal [...] documented as of this encounter Care Teams Curing Supervisor Relationship Specialty Start Date End Date Comfort Siddiqi APRN [address] [place] [address] PCP - General 03/12/25 Km Wooten MD [address] [address] Consulting Physician Radiation Oncology 02/14/25 documented as of this encounter
--- OUTSIDE RECORDS SUMMARY | 2025-04-16 12:28 | XMS_ITS | Encounter Summary ---
Author Organization Healthcare Address [address] [id number] Care Team Providers Care Fixer Boarding Room Name Role Phone Km Wooten MD Unavailable [phone] Comfort Siddiqi APRN Primary Care Provider [phone] Encounter Details Date Type Department Care Team (Latest Contact Info) Description 04/16/2025 1:28 PM EDT - 04/16/2025 11:59 PM EDT Hospital Encounter [facility] [address] [id number] [place] [address] Discharge Disposition: Still a Patient Social History [...] PM EST Appointment [facility] [address] [id number] [place] [address] Marci Gonzalez APRN [address] [place] [address] documented as of this encounter Goals Goal [...] documented as of this encounter Care Teams Fixer Boarding Room Relationship Specialty Start Date End Date Comfort Siddiqi APRN [address] [place] [address] PCP - General 03/12/25 Km Wooten MD [address] [address] Consulting Physician Radiation Oncology 02/14/25 documented as of this encounter
--- OUTSIDE RECORDS SUMMARY | 2025-04-17 12:52 | XMS_ITS | Encounter Summary ---
Author Organization Healthcare Address [address] [id number] Care Team Providers Care Furniture Repairer Name Role Phone Km Wooten MD Unavailable [phone] Comfort Siddiqi APRN Primary Care Provider [phone] Encounter Details Date Type Department Care Team (Latest Contact Info) Description 04/17/2025 1:52 PM EDT - 04/17/2025 11:59 PM EDT Hospital Encounter [facility] [address] [id number] [place] [address] Discharge Disposition: Still a Patient Social History [...] PM EST Appointment [facility] [address] [id number] [place] [address] Marci Gonzalez APRN [address] [place] [address] documented as of this encounter Goals Goal [...] documented as of this encounter Care Teams Furniture Repairer Relationship Specialty Start Date End Date Comfort Siddiqi APRN [address] [place] [address] PCP - General 03/12/25 Km Wooten MD [address] [address] Consulting Physician Radiation Oncology 02/14/25 documented as of this encounter
--- OUTSIDE RECORDS SUMMARY | 2025-04-18 12:36 | XMS_ITS | Encounter Summary ---
Author Organization [facility] Address [address] [place] [place] [id number] Care Team Providers Care Balance Screwhead Polisher Name Role Phone Km Wooten MD Unavailable [phone] Comfort Siddiqi APRN Primary Care Provider [phone] Encounter Details Date Type Department Care Team (Latest Contact Info) Description 04/18/2025 1:36 PM EDT - 04/18/2025 2:02 PM EDT Hospital Encounter [facility] [address] [id number] [place] [address] Discharge Disposition: Still a Patient Social History [...] PM EST Appointment [facility] [address] [id number] [place] [address] Marci Gonzalez APRN [address]114[address] [place] [address] documented as of this encounter Goals Goal [...] documented as of this encounter Care Teams Balance Screwhead Polisher Relationship Specialty Start Date End Date Comfort Siddiqi APRN [address] [place] [address] PCP - General 03/12/25 Km Wooten MD [address] [address] Consulting Physician Radiation Oncology 02/14/25 documented as of this encounter
--- OUTSIDE RECORDS SUMMARY | 2025-04-18 13:03 | XMS_ITS | Encounter Summary ---
Author Organization [facility] Address [address] [place] [id number] Care Team Providers Care Candle Cutter Name Role Phone Km Wooten MD Unavailable [phone] Comfort Siddiqi APRN Primary Care Provider [phone] Reason for Visit * Reason Comments OTV Encounter Details Date Type Department Care Team (Latest Contact Info) Description 04/18/2025 2:03 PM EDT - 04/18/2025 11:59 PM EDT Hospital Encounter [facility] Radiation [address] [id number] [place] [address] Km Wooten MD [address] [place] [address] Malignant neoplasm of rectum (CMS/HCC) (Primary Dx) [...] Tripp is a 55 y.o. male with [id number] lower rectal adenocarcinoma receiving induction chemoradiation Radiation [...] Randolph MD, PGY-3 Resident Physician, Radiation Oncology [facility] Pager: [phone] Cosigned by Km Wooten MD at 04/18/2025 2:57 PM EDT Associated attestation - mK Wooten MD - 04/18/2025 2:57 PM EDT I saw and evaluated the patient with the resident/fellow. I discussed the case with the resident/fellow and agree with the findings and plan as documented. documented in this encounter Plan of Treatment Upcoming Encounters Date Type Department Care Team (Late st Contact Info) Description 05/27/2025 2:20 PM EST Appointment [facility] Radiation 800 [facility]. [id number] [place] [address] Marci Gonzalez, STUDIO MUSICIAN [address] [address] documented as of this encounter Goals [...] documented as of this encounter Care Teams Candle Cutter Relationship Specialty Start Date End Date Comfort Siddiqi APRN [address] [place] [address] PCP - General 03/12/25 Km Wooten MD [address] [place] [address] Consulting Physician Radiation Oncology 02/14/25 documented as of this encounter
--- OUTSIDE RECORDS SUMMARY | 2025-04-19 12:42 | XMS_ITS | Encounter Summary ---
Author Organization Healthcare Address [address] [id number] Care Team Providers Care Assembler Latches And Springs Name Role Phone Km Wooten MD Unavailable Comfort Siddiqi APRN Primary Care Provider [phone] Encounter Details Date Type Department Care Team (Latest Contact Info) Description 04/19/2025 1:42 PM EDT - 04/19/2025 11:59 PM EDT Hospital Encounter [facility] [address] [id number] [place] [address] Discharge Disposition: Still a Patient Social History [...] PM EST Appointment [facility] [address] [id number] [place] [address] Marci Gonzalez APRN [address] [place] [address] documented as of this encounter Goals Goal [...] documented as of this encounter Care Teams Assembler Latches And [place] Relationship Specialty Start Date End Date Comfort Siddiqi APRN [address] [place] [address] PCP - General 03/12/25 Km Wooten MD [address] [address] Consulting Physician Radiation Oncology 02/14/25 documented as of this encounter
--- OUTSIDE RECORDS SUMMARY | 2025-04-22 07:10 | XMS_ITS | Encounter Summary ---
Author Organization Healthcare Address [address] [id number] Care Team Providers Care Ceramic Tile Mechanic Name Role Phone Km Wooten MD Unavailable [phone] Comfort Siddiqi APRN Primary Care Provider [phone] Encounter Details Date Type Department Care Team (Latest Contact Info) Description 04/22/2025 8:10 AM EDT - 04/22/2025 1:39 PM EDT Hospital Encounter [facility] [address] [id number] [place] [address] Discharge Disposition: Still a Patient Social History [...] PM EST Appointment [facility] [address] [id number] [place] [address] Marci Gonzalez APRN [address] [place] [address] documented as of this encounter Goals Goal [...] documented as of this encounter Care Teams Ceramic Tile Mechanic Relationship Specialty Start Date End Date Comfort Siddiqi APRN [address] [place] [address] PCP - General 03/12/25 Km Wooten MD [address] [address] Consulting Physician Radiation Oncology 02/14/25 documented as of this encounter
--- OUTSIDE RECORDS SUMMARY | 2025-04-22 12:40 | XMS_ITS | Encounter Summary ---
Author Organization Healthcare Address [address] [id number] Care Team Providers Care Thermodynamics Professor Name Role Phone Km Wooten MD Unavailable [phone] Comfort Siddiqi APRN Primary Care Provider [phone] Encounter Details Date Type Department Care Team (Latest Contact Info) Description 04/22/2025 1:40 PM EDT - 04/22/2025 11:59 PM EDT Hospital Encounter [facility] [address] [id number] [place] [address] Discharge Disposition: Still a Patient Social History [...] PM EST Appointment [facility] [address] [id number] [place] [address] Marci Gonzalez APRN [address] [place] [address] documented as of this encounter Goals Goal [...] documented as of this encounter Care Teams Thermodynamics Professor Relationship Specialty Start Date End Date Comfort Siddiqi APRN [address] [place] [address] PCP - General 03/12/25 Km Wooten MD [address] [address] Consulting Physician Radiation Oncology 02/14/25 documented as of this encounter
--- OUTSIDE RECORDS SUMMARY | 2025-04-23 12:48 | XMS_ITS | Encounter Summary ---
Author Organization Healthcare Address [address] [id number] Care Team Providers Care Fabrication Department Supervisor Name Role Phone Km Wooten MD Unavailable [phone] Comfort Siddiqi APRN Primary Care Provider [phone] Encounter Details Date Type Department Care Team (Latest Contact Info) Description 04/23/2025 1:48 PM EDT - 04/23/2025 11:59 PM EDT Hospital Encounter [facility] [address] [id number] [place] [address] Discharge Disposition: Still a Patient Social History [...] PM EST Appointment [facility] [address] [id number] [place] [address] Marci Gonzalez APRN [address] [place] [address] documented as of this encounter Goals Goal [...] documented as of this encounter Care Teams Fabrication Department Supervisor Relationship Specialty Start Date End Date Comfort Siddiqi APRN [address] [place] [address] PCP - General 03/12/25 Km Wooten MD [address] [address] Consulting Physician Radiation Oncology 02/14/25 documented as of this encounter
--- OUTSIDE RECORDS SUMMARY | 2025-04-24 12:41 | XMS_ITS | Encounter Summary ---
Author Organization Healthcare Address [address] [id number] Care Team Providers Care Coconut Candy Maker Name Role Phone Km Wooten MD Unavailable [phone] Comfort Siddiqi APRN Primary Care Provider [phone] Encounter Details Date Type Department Care Team (Latest Contact Info) Description 04/24/2025 1:41 PM EDT - 04/24/2025 11:59 PM EDT Hospital Encounter [facility] [id number] [place] [address] Discharge Disposition: Still a Patient Social History [...] PM EST Appointment [facility] [id number] [place] [address] Marci Gonzalez APRN [address] [place] [address] documented as of this encounter Goals Goal [...] documented as of this encounter Care Teams Coconut Candy Maker Relationship Specialty Start Date End Date Comfort Siddiqi APRN [address] [place] [address] PCP - General 03/12/25 Km Wooten MD [address] [address] Consulting Physician Radiation Oncology 02/14/25 documented as of this encounter
--- OUTSIDE RECORDS SUMMARY | 2025-04-29 08:39 | XMS_ITS | Encounter Summary ---
Author Organization Healthcare Address [address] [id number] Care Team Providers Care Sewage Reticulation Drafting Officer Name Role Phone Km Wooten MD Unavailable [phone] Comfort Siddiqi APRN Primary Care Provider [phone] Encounter Details Date Type Department Care Team (Latest Contact Info) Description 04/29/2025 8:39 AM EST - 04/29/2025 11:59 PM [facility] Hospital Encounter PAV CC Radiation [address] [id number] [place] [address] Discharge Disposition: Still a Patient Social History [...] Appointment P[facility] CC Radiation [address] [id number] [place] [address] Marci Gonzalez APRN [address] [place] [address] documented as of this encounter Goals Goal [...] documented as of this encounter Care Teams Sewage Reticulation Drafting Officer Relationship Specialty Start Date End Date Comfort Siddiqi APRN [address] [place] [address] PCP - General 03/12/25 Km Wooten MD [address] [address] Consulting Physician Radiation Oncology 02/14/25 documented as of this encounter
[2025-05-15 08:13] VITALS: BMI 44.6
--- NOTE | 2025-05-15 15:35 | ECG_ITS ---
APPROVED REPORT Exam: Resting ECG HR:74 bpm ECG Measurements Heart Rate 74 AXES NE 180 P 34 QRSd 106 QRS 13 QT 390 T 8 QTc 417 Conclusion SINUS RHYTHM LOW QRS VOLTAGE IN PRECORDIAL LEADS [QRS DEFLECTION < 1.0 mV IN CHEST LEADS] Isolated q in iii = probable normal variant ABNORMAL ECG UNCONFIRMED REPORT Electronically signed by : Joel Abdullahi MD 05/16/2025 08:28:17
--- OUTSIDE RECORDS SUMMARY | 2025-05-15 16:18 | XMS_ITS | Encounter Summary ---
Author Organization Healthcare Address [address] [place] [address] Care Team Providers Care Sas Clinical Programmer Name Role Phone Km Wooten MD Unavailable [phone] Comfort Siddiqi APRN Primary Care Provider [phone] Encounter Details Date Type Department Care Team (Late st Contact Info) Description 04/18/2025 Orders Only P[facility] CC Radiation [address] [id number] [place] [address] Radiation Oncology, Physician, [address] [place], [place] [id number] Social History Tobacco Use Types Packs/Day Years [...] Appointment PAV CC Radiation [address] [id number] [place] [address] Marci Gonzalez, ENVIRONMENTAL PROGRAMS SPECIALIST [address] [place] [address] documented as of this encounter [...] ONCOLOGY Reference Point Dosage Given to Date [id number] Gy ARIA RADIATION ONCOLOGY Reference Point Session Dosage Given 1.12853623 Gy ARIA RADIATION ONCOLOGY Plan ID [id number] [...] documented as of this encounter Care Teams Sas Clinical Programmer Relationship Specialty Start Date End Date Comfort Siddiqi APRN [address] [place] [address] PCP - General 03/12/25 Km Wooten MD [address] [place] [address] C114D [place] [address] Consulting Physician Radiation Oncology 02/14/25 documented as of this encounter
--- OUTSIDE RECORDS SUMMARY | 2025-05-15 16:18 | XMS_ITS | Encounter Summary ---
Author Organization Healthcare Address [address] [place] [address] Care Team Providers Care Manuscripts Archivist Name Role Phone Km Wooten MD Unavailable [phone] Comfort Siddiqi APRN Primary Care Provider [phone] Encounter Details Date Type Department Care Team (Late st Contact Info) Description 04/23/2025 Orders Only PAV CC Radiation [address] [id number] [place] [address] Radiation Oncology, Physician, [address] [place], [place] [address] Social History Tobacco Use Types Packs/Day Years [...] Appointment PAV CC Radiation [address] [id number] [place] [address] Marci Gonzalez, POWER BARKER OPERATOR [address] [place] [address] documented as of this encounter Goals Goal [...] ONCOLOGY Reference Point Dosage Given to Date [id number] 0001 Gy ARIA RADIATION ONCOLOGY Reference Point Session Dosage Given 1.81355205 Gy ARIA RADIATION ONCOLOGY Plan ID [id number] [...] documented as of this encounter Care Teams Manuscripts Archivist Relationship Specialty Start Date End Date Comfort Siddiqi APRN [address] [place] [address] PCP - General 03/12/25 Km Wooten MD [address] [place] [address] [address] [place] [address] Consulting Physician Radiation Oncology 02/14/25 documented as of this encounter
--- OUTSIDE RECORDS SUMMARY | 2025-05-15 16:18 | XMS_ITS | Encounter Summary ---
Author Organization Healthcare Address [address] [place] [address] Care Team Providers Care Test Engine Mechanic Name Role Phone Km Wooten MD Unavailable [phone] Comfort Siddiqi APRN Primary Care Provider [phone] Encounter Details Date Type Department Care Team (Late st Contact Info) Description 03/25/2025 Orders Only [facility] [address] [id number] [place] [address] Radiation Oncology, Physician, [address] [place], [place] [address] Social History Tobacco Use Types Packs/Day Years [...] Appointment [facility] [address] [id number] [place] [address] Marci Gonzalez, IMMIGRATION SPECIALIST [address] [place] [address] documented as of this encounter [...] ONCOLOGY Reference Point Dosage Given to Date 5.35551046 Gy ARIA RADIATION ONCOLOGY Reference Point Session Dosage Given 1.58012579 Gy ARIA RADIATION ONCOLOGY Plan ID [id number] [...] documented as of this encounter Care Teams Test Engine Mechanic Relationship Specialty Start Date End Date Comfort Siddiqi APRN [address] [place] [address] PCP - General 03/12/25 Km Wooten MD [address] [place] [address] C114D [place] [address] Consulting Physician Radiation Oncology 02/14/25 documented as of this encounter
--- OUTSIDE RECORDS SUMMARY | 2025-05-15 16:18 | XMS_ITS | Encounter Summary ---
Author Organization Healthcare Address [address] [place] [address] Care Team Providers Care Fireman Helper Name Role Phone Km Wooten MD Unavailable [phone] Comfort Siddiqi APRN Primary Care Provider [phone] Encounter Details Date Type Department Care Team (Late st Contact Info) Description 04/22/2025 Orders Only [facility] [address] [id number] [place] [address] Radiation Oncology, Physician, [address] [place], [place] [address] Social History Tobacco Use Types Packs/Day Years [...] Appointment [facility] [address] [id number] [place] [address] Marci Gonzalez, COMMISSIONS MANAGER [address] [place] [address] documented as of this encounter Goals Goal [...] ONCOLOGY Reference Point Dosage Given to Date [id number] 0001 Gy ARIA RADIATION ONCOLOGY Reference Point Session Dosage Given 1.59883095 Gy ARIA RADIATION ONCOLOGY Plan ID [id number] [...] documented as of this encounter Care Teams Fireman Helper Relationship Specialty Start Date End Date Comfort Siddiqi APRN [address] [place] [address] PCP - General 03/12/25 Km Wooten MD [address] [place] [address] C[address]D [place] [address] Consulting Physician Radiation Oncology 02/14/25 documented as of this encounter
--- OUTSIDE RECORDS SUMMARY | 2025-05-15 16:18 | XMS_ITS | Encounter Summary ---
Author Organization Healthcare Address [address] [place] [address] Care Team Providers Care Manager Of Procurement Name Role Phone Km Wooten MD Unavailable [phone] Comfort Siddiqi APRN Primary Care Provider Encounter Details Date Type Department Care Team (Late st Contact Info) Description 04/19/2025 Orders Only [facility] [address] [id number] [place] [address] Radiation Oncology, Physician, [address] [place], [place] [address] Social History Tobacco Use Types Packs/Day Years [...] Appointment [facility] [address] [id number] [place] [address] Marci Gonzalez, HONEYCOMB DECAPPER [address] [place] [address] documented as of this encounter [...] ONCOLOGY Reference Point Dosage Given to Date 43.40582480 Gy ARIA RADIATION ONCOLOGY Reference Point Session Dosage Given 1.69203358 Gy ARIA RADIATION ONCOLOGY Plan ID [id number] [...] as of this encounter Care Teams Manager Of Procurement Relationship Specialty Start Date End Date Comfort Siddiqi APRN [address] [place] [address] PCP - General 03/12/25 Km Wooten MD [address] [place] [address] [address]D [place] [address] Consulting Physician Radiation Oncology 02/14/25 documented as of this encounter
--- OUTSIDE RECORDS SUMMARY | 2025-05-15 16:18 | XMS_ITS | Encounter Summary ---
Author Organization Healthcare Address [address] [place] [address] Care Team Providers Care Library Clerk Talking Books Name Role Phone Km Wooten MD Unavailable [phone] Comfort Siddiqi APRN Primary Care Provider [phone] Encounter Details Date Type Department Care Team (Late st Contact Info) Description 04/24/2025 Orders Only [facility] [address] [id number] [place] [address] Radiation Oncology, Physician, [address] [place], [place] [address] Social History Tobacco Use Types Packs/Day Years [...] Appointment [facility] [address] [id number] [place] [address] Marci Gonzalez, EXTERNAL RELATIONS MANAGER [address] [place] [address] documented as of this encounter Goals Goal [...] ONCOLOGY Reference Point Dosage Given to Date 49.164239173 0001 Gy ARIA RADIATION ONCOLOGY Reference Point Session Dosage Given 1.68074042 Gy ARIA RADIATION ONCOLOGY Plan ID [id number] [...] documented as of this encounter Care Teams Library Clerk Talking Books Relationship Specialty Start Date End Date Comfort Siddiqi APRN [address] [place] [address] PCP - General 03/12/25 Km Wooten MD [address] [place] [address] C114D [place] [address] Consulting Physician Radiation Oncology 02/14/25 documented as of this encounter
--- OUTSIDE RECORDS SUMMARY | 2025-05-15 16:18 | XMS_ITS | Encounter Summary ---
Author Organization Healthcare Address [address] [place] [address] Care Team Providers Care Front End Wheel Loader Operator Name Role Phone Km Wooten MD Unavailable [phone] Comfort Siddiqi APRN Primary Care Provider [phone] Encounter Details Date Type Department Care Team (Late st Contact Info) Description 04/10/2025 Orders Only [facility] [address] [id number] [place] [address] Radiation Oncology, Physician, [address] [place], [place] [address] Social History Tobacco Use Types Packs/Day Years [...] Appointment [facility] [address] [id number] [place] [address] Marci Gonzalez, WIRELESS STORE MANAGER [address] [place] [address] documented as of this encounter [...] ONCOLOGY Reference Point Dosage Given to Date 29.15088598 Gy ARIA RADIATION ONCOLOGY Reference Point Session Dosage Given 1.51323678 Gy ARIA RADIATION ONCOLOGY Plan ID [id number] [...] documented as of this encounter Care Teams Front End Wheel Loader Operator Relationship Specialty Start Date End Date Comfort Siddiqi APRN [address] [place] [address] PCP - General 03/12/25 Km Wooten MD [address] [place] [address] C114D [place] [address] Consulting Physician Radiation Oncology 02/14/25 documented as of this encounter
--- OUTSIDE RECORDS SUMMARY | 2025-05-15 16:18 | XMS_ITS | Encounter Summary ---
Author Organization [facility] Address [address] [place] [address] Care Team Providers Care Mainframe Systems Programmer Name Role Phone Km Wooten MD Unavailable [phone] Comfort Siddiqi APRN Primary Care Provider [phone] Encounter Details Date Type Department Care Team [...] Appointment [facility] [address] [id number] [place] [address] Marci Gonzalez APRN [address] [address] documented as of this encounter Goals Goal [...] documented as of this encounter Care Teams Mainframe Systems Programmer Relationship Specialty Start Date End Date Comfort Siddiqi APRN [address] [place] [address] PCP - General 03/12/25 Km Wooten MD [address] [phone] Consulting Physician Radiation Oncology 02/14/25 documented as of this encounter
--- OUTSIDE RECORDS SUMMARY | 2025-05-15 16:18 | XMS_ITS | Encounter Summary ---
Author Organization Healthcare Address [address] [place] [address] Care Team Providers Care Substance Abuse Therapist Name Role Phone Km Wooten MD Unavailable [phone] Comfort Siddiqi APRN Primary Care Provider [phone] Encounter Details Date Type Department Care Team (Late st Contact Info) Description 04/12/2025 Orders Only [facility] [address] [id number] [place] [address] Radiation Oncology, Physician, [address] [place], [place] [address] Social History Tobacco Use Types Packs/Day Years [...] Appointment [facility] [address] [id number] [place] [address] Marci Gonzalez, COORDINATING PRODUCER [address] [place] [address] documented as of this encounter [...] ONCOLOGY Reference Point Dosage Given to Date 33.34132474 Gy ARIA RADIATION ONCOLOGY Reference Point Session Dosage Given 1.58388857 Gy ARIA RADIATION ONCOLOGY Plan ID [id number] [...] documented as of this encounter Care Teams Substance Abuse Therapist Relationship Specialty Start Date End Date Comfort Siddiqi APRN [address] [place] [address] PCP - General 03/12/25 Km Wooten MD [address] [place] [address] C114D [place] [address] Consulting Physician Radiation Oncology 02/14/25 documented as of this encounter
--- OUTSIDE RECORDS SUMMARY | 2025-05-15 16:18 | XMS_ITS | Encounter Summary ---
Author Organization [facility] Address [address] [place] [address] Care Team Providers Care Forest Fire Lookout Name Role Phone Km Wooten MD Unavailable [phone] Comfort Siddiqi APRN Primary Care Provider [phone] Encounter Details Date Type Department Care Team [...] Appointment [facility] Rad[facility] [address] [id number] [place] [address] Marci Gonzalez APRN [address] [phone] documented as of this encounter Goals Goal [...] documented as of this encounter Care Teams Forest Fire Lookout Relationship Specialty Start Date End Date Comfort Siddiqi APRN [address] [place] [address] PCP - General 03/12/25 Km Wooten MD [address] [address] Consulting Physician Radiation Oncology 02/14/25 documented as of this encounter
--- OUTSIDE RECORDS SUMMARY | 2025-05-15 16:19 | XMS_ITS | Encounter Summary ---
Author Organization [facility] Address [address] [place] [address] Care Team Providers Care Computer Hardware Technician Name Role Phone Km Wooten MD Unavailable [phone] Comfort Siddiqi APRN Primary Care Provider [phone] Encounter Details Date Type Department Care Team [...] Appointment [facility] [address] [id number] [place] [address] Marci Gonzalez APRN [address] [address] documented as of this encounter Goals Goal [...] documented as of this encounter Care Teams Computer Hardware Technician Relationship Specialty Start Date End Date Comfort Siddiqi APRN [address] [place] [address] PCP - General 03/12/25 Km Wooten MD [address] [address] Consulting Physician Radiation Oncology 02/14/25 documented as of this encounter
--- OUTSIDE RECORDS SUMMARY | 2025-05-15 16:19 | XMS_ITS | Encounter Summary ---
Author Organization Healthcare Address [address] [place] [address] Care Team Providers Care Flower Planter Name Role Phone Km Wooten MD Unavailable [phone] Comfort Siddiqi APRN Primary Care Provider [phone] Encounter Details Date Type Department Care Team (Late st Contact Info) Description 04/02/2025 Orders Only [facility] [address] [id number] [place] [address] Radiation Oncology, Physician, [address] [place], [place] [address] Social History Tobacco Use Types Packs/Day Years [...] Appointment [facility] [address] [id number] [place] [address] Marci Gonzalez, LEAF TIER [address] [place] [address] documented as of this encounter [...] ONCOLOGY Reference Point Dosage Given to Date 17.57973985 Gy ARIA RADIATION ONCOLOGY Reference Point Session Dosage Given 1.63390236 Gy ARIA RADIATION ONCOLOGY Plan ID A1A8 [...] documented as of this encounter Care Teams Flower Planter Relationship Specialty Start Date End Date Comfort Siddiqi APRN [address] [place] [address] PCP - General 03/12/25 Km Wooten MD [address] [place] [address] C114D [place] [address] Consulting Physician Radiation Oncology 02/14/25 documented as of this encounter
--- OUTSIDE RECORDS SUMMARY | 2025-05-15 16:19 | XMS_ITS | Encounter Summary ---
Author Organization [facility] Address [address] [place] [address] Care Team Providers Care Steam Room Attendant Name Role Phone Km Wooten MD Unavailable [phone] Comfort Siddiqi APRN Primary Care Provider [phone] Encounter Details Date Type Department Care Team [...] Appointment [facility] Radiation [address] [id number] [place] [address] Marci Gonzalez APRN [address] [phone] documented as of this encounter Goals Goal [...] as of this encounter Care Teams Steam Room Attendant Relationship Specialty Start Date End Date Comfort Siddiqi APRN [address] [place] [address] PCP - General 03/12/25 Km Wooten MD [address] [phone] Consulting Physician Radiation Oncology 02/14/25 documented as of this encounter
--- OUTSIDE RECORDS SUMMARY | 2025-05-15 16:19 | XMS_ITS | Encounter Summary ---
Author Organization Healthcare Address [address] [place] [address] Care Team Providers Care Employee Benefits Coordinator Name Role Phone Km Wooten MD Unavailable [phone] Comfort Siddiqi APRN Primary Care Provider [phone] Encounter Details Date Type Department Care Team (Late st Contact Info) Description 04/16/2025 Orders Only [facility] Rad[facility] [address] [id number] [place] [address] Radiation Oncology, Physician, [address] [place], [place] [address] Social History Tobacco Use Types Packs/Day Years [...] Appointment [facility] Rad[facility] [address] [id number] [place] [address] Marci Gonzalez, RIBBON LAPPER TENDER [address] [place] [address] documented as of this encounter [...] ONCOLOGY Reference Point Dosage Given to Date 37.79329134 Gy ARIA RADIATION ONCOLOGY Reference Point Session Dosage Given 1.99971424 Gy ARIA RADIATION ONCOLOGY Plan ID [id number] [...] as of this encounter Care Teams Employee Benefits Coordinator Relationship Specialty Start Date End Date Comfort Siddiqi APRN [address] [place] [address] PCP - General 03/12/25 Km Wooten MD [address] [place] [address] C114D [place] [address] Consulting Physician Radiation Oncology 02/14/25 documented as of this encounter
--- OUTSIDE RECORDS SUMMARY | 2025-05-15 16:19 | XMS_ITS | Encounter Summary ---
Author Organization Healthcare Address [address] [place] [address] Care Team Providers Care Mold Construction Supervisor Name Role Phone mK Wooten MD Unavailable [phone] Comfort Siddiqi APRN Primary Care Provider [phone] Encounter Details Date Type Department Care Team (Late st Contact Info) Description 03/29/2025 Orders Only [facility] Radiation [address] [id number] [place] [address] Radiation Oncology, Physician, [address] [place], [place] [address] Social History Tobacco Use Types Packs/Day Years [...] Appointment [facility] Radiation [address] [id number] [place] [address] Marci Gonzalez, MANAGER RISK [address] [place] [address] documented as of this encounter [...] ONCOLOGY Reference Point Dosage Given to Date 13.89506733 Gy ARIA RADIATION ONCOLOGY Reference Point Session Dosage Given 1.75691730 Gy ARIA RADIATION ONCOLOGY Plan ID [id number] [...] as of this encounter Care Teams Mold Construction Supervisor Relationship Specialty Start Date End Date Comfort Siddiqi APRN [address] [place] [address] PCP - General 03/12/25 Km Wooten MD [address] [place] [address] C114D [place] [address] Consulting Physician Radiation Oncology 02/14/25 documented as of this encounter
--- OUTSIDE RECORDS SUMMARY | 2025-05-15 16:19 | XMS_ITS | Encounter Summary ---
Author Organization Healthcare Address [address] [place] [address] Care Team Providers Care Metal Numerical Control Programmer Name Role Phone Km Wooten MD Unavailable [phone] Comfort Siddiqi APRN Primary Care Provider Encounter Details Date Type Department Care Team (Late st Contact Info) Description 04/17/2025 Orders Only [facility] Radiation [address] [id number] [place] [address] Radiation Oncology, Physician, [address] [place], [place] [address] Social History Tobacco Use Types Packs/Day Years [...] Appointment [facility] Radiation [address] [id number] [place] [address] Marci Gonzalez, PLATE GRAINER [address] [place] [address] documented as of this encounter [...] ONCOLOGY Reference Point Dosage Given to Date 39.9017180 Gy ARIA RADIATION ONCOLOGY Reference Point Session Dosage Given 1.99931075 Gy ARIA RADIATION ONCOLOGY Plan ID [id number] [...] as of this encounter Care Teams Metal Numerical Control Programmer Relationship Specialty Start Date End Date Comfort Siddiqi APRN [address] [place] [address] PCP - General 03/12/25 Km Wooten MD [address] [place], [place] 121554D [place] [address] Consulting Physician Radiation Oncology 02/14/25 documented as of this encounter
--- OUTSIDE RECORDS SUMMARY | 2025-05-15 16:19 | XMS_ITS | Encounter Summary ---
Author Organization Healthcare Address [address] [place] [address] Care Team Providers Care City Wellness Coordinator Name Role Phone Km Wooten MD Unavailable [phone] Comfort Siddiqi APRN Primary Care Provider [phone] Encounter Details Date Type Department Care Team (Late st Contact Info) Description 04/11/2025 Orders Only [facility] Radiation [address] [id number] [place] [address] Radiation Oncology, Physician, [address] [place], [place] [address] Social History Tobacco Use Types Packs/Day Years [...] Appointment [facility] Radiation [address] [id number] [place] [address] Marci Gonzalez, TOWEL DISTRIBUTOR [address] [place] [address] documented as of this encounter [...] ONCOLOGY Reference Point Dosage Given to Date 31.76127945 Gy ARIA RADIATION ONCOLOGY Reference Point Session Dosage Given 1.75021438 Gy ARIA RADIATION ONCOLOGY Plan ID A1A8 [...] documented as of this encounter Care Teams City Wellness Coordinator Relationship Specialty Start Date End Date Comfort Siddiqi APRN [address] [place] [address] PCP - General 03/12/25 Km Wooten MD [address] [place] [address] C[address]D [place] [address] Consulting Physician Radiation Oncology 02/14/25 documented as of this encounter
--- OUTSIDE RECORDS SUMMARY | 2025-05-15 16:19 | XMS_ITS | Encounter Summary ---
Author Organization [facility] Address [address] [place] [address] Care Team Providers Care Manager Work Name Role Phone Tejal Saeed APRN Primary Care Provider [phone] Km Wooten MD Unavailable [phone] Comfort Siddiqi APRN Primary Care Provider [phone] Encounter Details Date Type Department Care Team (Late st Contact Info) Description 01/08/2025 Orders Only External Location [address] [place] [address] Provider, External Social History Tobacco [...] Appointment [facility] Radiation [address] [id number] [place] [address] Marci Gonzalez APRN [address] [place] [address] documented as of this encounter Procedures Procedure [...] on filedocumented in this encounter Care Teams Manager Work Relationship Specialty Start Date End Date Tejal Saeed APRN [address] [place], [place] [address] PCP - General 11/07/20 03/11/25 Comfort Siddiqi APRN [address] [place] [address] PCP - General 03/12/25 Km Wooten MD [address] [address] Consulting Physician Radiation Oncology 02/14/25 documented as of this encounter
--- OUTSIDE RECORDS SUMMARY | 2025-05-15 16:19 | XMS_ITS | Encounter Summary ---
Author Organization [facility] Address [address] [place] [address] Care Team Providers Care Supervisor Pyrotechnic Loading Name Role Phone Tejal Saeed APRN Primary Care Provider [phone] Km Wooten MD Unavailable [phone] Comfort Siddiqi APRN Primary Care Provider [phone] Encounter Details Date Type Department Care Team (Late st Contact Info) Description 01/08/2025 Orders Only External Location [address] [place] [address] Provider, External Social History Tobacco [...] Appointment [facility] Radiation [address] [id number] [place] [address] Marci Gonzalez APRN 800 [facility] [address] [place] [address] documented as of this encounter Procedures Procedure [...] on filedocumented in this encounter Care Teams Supervisor Pyrotechnic Loading Relationship Specialty Start Date End Date Tejal Saeed APRN [address] [place] [address] PCP - General 11/07/20 03/11/25 Comfort Siddiqi APRN [address] [place] [address] PCP - General 03/12/25 Km Wooten MD [address] [address] Consulting Physician Radiation Oncology 02/14/25 documented as of this encounter
--- OUTSIDE RECORDS SUMMARY | 2025-05-15 16:19 | XMS_ITS | Encounter Summary ---
Author Organization Healthcare Address [address] [place] [address] Care Team Providers Care Composite Boat Builder Name Role Phone Km Wooten MD Unavailable [phone] Comfort Siddiqi APRN Primary Care Provider [phone] Encounter Details Date Type Department Care Team (Late st Contact Info) Description 04/01/2025 Orders Only [facility] Radiation [address] [id number] [place] [address] Radiation Oncology, Physician, [address] [place], [place] [address] Social History Tobacco Use Types Packs/Day Years [...] Appointment [facility] Radiation [address] [id number] [place] [address] Marci Gonzalez, DOOR TRIMMER [address] [place] [address] documented as of this encounter [...] ONCOLOGY Reference Point Dosage Given to Date 15.94962941 Gy ARIA RADIATION ONCOLOGY Reference Point Session Dosage Given 1.97731516 Gy ARIA RADIATION ONCOLOGY Plan ID A1A8 [...] documented as of this encounter Care Teams Composite Boat Builder Relationship Specialty Start Date End Date Comfort Siddiqi APRN [address] [place] [address] PCP - General 03/12/25 Km Wooten MD [address] [place] [address] C114D [place] [address] Consulting Physician Radiation Oncology 02/14/25 documented as of this encounter
--- OUTSIDE RECORDS SUMMARY | 2025-05-15 16:19 | XMS_ITS | Encounter Summary ---
Author Organization Healthcare Address [address] [place] [address] Care Team Providers Care Contract Lead Name Role Phone Km Wooten MD Unavailable [phone] Comfort Siddiqi APRN Primary Care Provider [phone] Encounter Details Date Type Department Care Team (Late st Contact Info) Description 04/15/2025 Orders Only [facility] Radiation [address] [id number] [place] [address] Radiation Oncology, Physician, [address] [place], [place] [address] Social History Tobacco Use Types Packs/Day Years [...] Appointment [facility] Radiation [address] [id number] [place] [address] Marci Gonzalez, COMPUTER SUPPORT TECHNICIAN [address] [place] [address] documented as of this encounter [...] ONCOLOGY Reference Point Dosage Given to Date 35.86422659 Gy ARIA RADIATION ONCOLOGY Reference Point Session Dosage Given 1.14402167 Gy ARIA RADIATION ONCOLOGY Plan ID [id number] [...] documented as of this encounter Care Teams Contract Lead Relationship Specialty Start Date End Date Comfort Siddiqi APRN [address] [place] [address] PCP - General 03/12/25 Km Wooten MD [address] [place] [address] C114D [place] [address] Consulting Physician Radiation Oncology 02/14/25 documented as of this encounter
--- OUTSIDE RECORDS SUMMARY | 2025-05-15 16:19 | XMS_ITS | Encounter Summary ---
Author Organization [facility] Address [address] [place] [address] Care Team Providers Care Airport Utility Worker Name Role Phone Tejal Saeed APRN Primary Care Provider [phone] Km Wooten MD Unavailable [phone] Comfort Siddiqi APRN Primary Care Provider [phone] Encounter Details Date Type Department Care Team (Late st Contact Info) Description 01/08/2025 Orders Only External Location [address] [place] [address] Provider, External Social History Tobacco [...] Appointment [facility] Radiation [address] [id number] [place] [address] Marci Gonzalez APRN 800 [facility] [address] [place] [address] documented as of this encounter Procedures Procedure [...] on filedocumented in this encounter Care Teams Airport Utility Worker Relationship Specialty Start Date End Date Tejal Saeed APRN [address] [place] [address] PCP - General 11/07/20 03/11/25 Comfort Siddiqi APRN [address] [place] [address] PCP - General 03/12/25 Km Wooten MD [address] [address] Consulting Physician Radiation Oncology 02/14/25 documented as of this encounter
--- OUTSIDE RECORDS SUMMARY | 2025-05-15 16:20 | XMS_ITS | Encounter Summary ---
Author Organization [facility] Address [address] [place] [address] Care Team Providers Care Helicopter Technician Name Role Phone Km Wooten MD Unavailable Comfort Siddiqi APRN Primary Care Provider [phone] Encounter Details Date Type Department Care Team (Late st Contact Info) Description 03/22/2025 Orders Only [facility] Radiation [address] [id number] [place] [address] Radiation Oncology, Physician, [address] [place], [place] [id number] Social History Tobacco Use Types Packs/Day Years [...] Appointment [facility] Radiation [address] [id number] [place] [address] Marci Gonzalez, REHABILITATION AIDE [address] [place] [address] documented as of this encounter [...] ONCOLOGY Reference Point Dosage Given to Date 3.39127304 Gy ARIA RADIATION ONCOLOGY Reference Point Session Dosage Given 1.20360361 Gy ARIA RADIATION ONCOLOGY Plan ID [id number] [...] documented as of this encounter Care Teams Helicopter Technician Relationship Specialty Start Date End Date Comfort Siddiqi APRN [address] [place] [address] PCP - General 03/12/25 Km Wooten MD [address] [place], [place] [id number] [place] [address] Consulting Physician Radiation Oncology 02/14/25 documented as of this encounter
--- OUTSIDE RECORDS SUMMARY | 2025-05-15 16:20 | XMS_ITS | Encounter Summary ---
Author Organization [facility] Address [address] [place] [address] Care Team Providers Care Tax Analyst Name Role Phone Km Wooten MD Unavailable [phone] Comfort Siddiqi APRN Primary Care Provider [phone] Encounter Details Date Type Department Care Team (Late st Contact Info) Description 04/04/2025 Orders Only [facility] Radiation [address] [id number] [place] [address] Radiation Oncology, Physician, [address] [place], [place] [id number] Social History Tobacco Use Types Packs/Day Years [...] Appointment [facility] Radiation [address] [id number] [place] [address] Marci Gonzalez, GEOSPATIAL EXTRACTOR ANALYSIS [address] [place] [address] documented as of this encounter [...] ONCOLOGY Reference Point Dosage Given to Date 21.29664984 Gy ARIA RADIATION ONCOLOGY Reference Point Session Dosage Given 1.15316501 Gy ARIA RADIATION ONCOLOGY Plan ID [id number] [...] documented as of this encounter Care Teams Tax Analyst Relationship Specialty Start Date End Date Comfort Siddiqi APRN [address] [place] [address] PCP - General 03/12/25 Km Wooten MD [address] [place] [address] [address] [place] [address] Consulting Physician Radiation Oncology 02/14/25 documented as of this encounter
--- OUTSIDE RECORDS SUMMARY | 2025-05-15 16:20 | XMS_ITS | Encounter Summary ---
Author Organization [facility] Address [address] [place] [id number] Care Team Providers Care Transitional Nurse Name Role Phone Tejal Saeed APRN Primary Care Provider [phone] Km Wooten MD Unavailable [phone] Comfort Siddiqi APRN Primary Care Provider [phone] Encounter Details Date Type Department Care Team (Late st Contact Info) Description 02/08/2025 Lab Requisition [facility] H Lab [address] [place] [address] Con Sumner MD [address] [facility] [address] [place] [address] Hemorrhage of anus and rectum Social History [...] Appointment [facility] Radiation [id number] [place] [address] Marci Gonzalez, GENERAL ROAD FOREMAN [address] [place] [address] documented as of this encounter Procedures Procedure Name Priority Date/Time Associated Diagnosis Comments SURGICAL PATHOLOGY CONSULT Routine 02/08/2025 11:05 AM EDT Hemorrhage of anus and rectum documented in this encounter Results * Surgical Pathology Consult (02/08/2025 11:05 AM EDT) Case Report Sugical Pathology Consult Case: [id number] Authorizing Provider: Con Sumner MD Collected: 02/08/20251104 Ordering Location: [facility] Lab Received: 02/08/2025 110 Pathologist: Luis Weiner DO Specimen: Colon, [id number] 02/10/2025 12:09 PM EDT [facility] Final Diagnosis DESIGNATED COLON, RECTUM; MASS, BIOPSY (OUTSIDE SLIDES; [id number]; 02/05/2025): - MODERATELY DIFFERENTIATED ADENOCARCINOMA (SEE COMMENT). - MMR BY IHC (PER REPORT): - RETAINED NUCLEAR EXPRESSION OF ALL FOUR PROTEINS (MLH1, PMS2, MSH2 AND MSH6). 02/10/2025 12:09 PM EDT [facility] at 1209 EDT Comment Correlation with endoscopic findings and imaging is recommended to determine site of tumor (colon vs rectum) given specimen designation. 02/10/2025 12:09 PM EDT [facility] Clinical Information K62.5 - Hemorrhage of anus and rectum [ICD-10-CM] 02/10/2025 12:09 PM EDT [facility] Gross Description A. [id number] Received along with a corresponding pathology report from [facility] are 5 slide(s) labeled outside case: [id number] collected on 01/31/2025. 02/10/2025 12:09 PM EDT [facility] Note: A resident was involved in the service. I attest I examined the relevant preparations for the specimens and confirmed the diagnosis or interpretation. 02/10/2025 12:09 PM EDT [facility] Tissue Colon structure / Unknown 02/08/2025 11:05 AM EDT 02/08/2025 11:05 AM EDT us Con Sumner MD LAB PATHOLOGY ORDERABLES Final Result [facility] [address] [place] [address] documented in this encounter Visit Diagnoses Diagnosis [...] documented as of this encounter Care Teams Transitional Nurse Relationship Specialty Start Date End Date Tejal Saeed APRN [address] [place] [address] PCP - General 11/07/20 03/11/25 Comfort Siddiqi APRN [address] [place] [address] PCP - General 03/12/25 Km Wooten MD 800 [facility] [address] [place] [address] Consulting Physician Radiation Oncology 02/14/25 documented as of this encounter
--- OUTSIDE RECORDS SUMMARY | 2025-05-15 16:20 | XMS_ITS | Encounter Summary ---
Author Organization [facility] Address [address] [place] [address] Care Team Providers Care Junior Systems Engineer Name Role Phone Km Wooten MD Unavailable [phone] Comfort Siddiqi APRN Primary Care Provider [phone] Encounter Details Date Type Department Care Team [...] Appointment [facility] Radiation [address] [id number] [place] [address] Marci Gonzalez APRN [address] [phone] documented as of this encounter Goals Goal [...] documented as of this encounter Care Teams Junior Systems Engineer Relationship Specialty Start Date End Date Comfort Siddiqi APRN [address] [place] [address] PCP - General 03/12/25 Km Wooten MD [address] [phone] Consulting Physician Radiation Oncology 02/14/25 documented as of this encounter
--- OUTSIDE RECORDS SUMMARY | 2025-05-15 16:20 | XMS_ITS | Encounter Summary ---
Author Organization [facility] Address [address] [place] [address] Care Team Providers Care Human Services Case Manager Name Role Phone Km Wooten MD Unavailable Comfort Siddiqi APRN Primary Care Provider [phone] Encounter Details Date Type Department Care Team (Late st Contact Info) Description 04/26/2025 Orders Only [facility] Radiation [address] [id number] [place] [address] Radiation Oncology, Physician, [address] [place], [place] [phone] Social History Tobacco Use Types Packs/Day Years [...] Appointment [facility] Radiation [address] [id number] [place] [address] Marci Gonzalez, EMPLOYEE WELFARE MANAGER [address] [place] [address] documented as of this encounter Goals Goal Patient Goal Type Associated Problems Recent Progress Patient-Stated? Author Autogenerat ed Goal Care Plan Autogenerated Problem No Lisa Johnston documented as of this encounter Procedures Procedure Name Priority Date/Time Associated Diagnosis Comments RAD ONC ARIA COURSE SUMMARY Routine 04/26/2025 6:42 PM EDT documented in this encounter Results * Rad Onc Aria Course Summary (04/26/2025 6:42 PM EDT) Course ID IMRT QA ARIA RADIATION ONCOLOGY Course Start Date 03/11/2025 2:45 PM ARIA RADIATION ONCOLOGY Course End Date 04/26/2025 6:42 PM ARIA RADIATION ONCOLOGY Reference Point ID Verification ARIA RADIATION ONCOLOGY Reference Point Dosage Given to Date 0.0E0 Gy ARIA RADIATION ONCOLOGY Plan ID A1A8 ARIA RADIATION ONCOLOGY Plan Name A1A8 ARIA RADIATION ONCOLOGY Plan Fractions Treated to Date 0 ARIA RADIATION ONCOLOGY Plan Total Fractions Prescribed 1 ARIA RADIATION ONCOLOGY Plan Prescribed Dose Per Fraction 2 Gy ARIA RADIATION ONCOLOGY Plan Total Prescribed Dose 200 CGy ARIA RADIATION ONCOLOGY Plan Primary Reference Point Verification ARIA RADIATION ONCOLOGY 04/26/2025 6:42 PM EDT Physician Radiation Oncology MD RADIATION ONCOLO GY ORDERABLES Final Result ARIA RADIATION ONCOLOGY documented in this encounter Visit Diagnoses Not on filedocumented in this encounter Additional Health Concerns Active Problems Noted Date Diagnosed Date Autogenerated Problem 02/28/2025 Assessment Noted Time PHQ-9 Depression Total Score: 0 02/19/ 25 2:59 PM EDT A fall risk assessment has been complete d for the patient 04/04/2025 2:42 PM EDT A Body Mass Index follow-up plan has been documented for the patient 03/15/2025 11:31 AM EDT documented as of this encounter Care Teams Human Services Case Manager Relationship Specialty Start Date End Date Comfort Siddiqi APRN [address] [place] [address] PCP - General 03/12/25 Km Wooten MD [address] [place] [address] Consulting Physician Radiation Oncology 02/14/25 documented as of this encounter
--- OUTSIDE RECORDS SUMMARY | 2025-05-15 16:20 | XMS_ITS | Encounter Summary ---
Author Organization [facility] Address [address] [place] [address] Care Team Providers Care Machine Tool Mechanic Name Role Phone Km Wooten MD Unavailable Comfort Siddiqi APRN Primary Care Provider [phone] Encounter Details Date Type Department Care Team [...] Appointment [facility] Radiation [address] [id number] [place] [address] Marci Gonzalez APRN [address] [phone] documented as of this encounter Goals Goal [...] as of this encounter Care Teams Machine Tool Mechanic Relationship Specialty Start Date End Date Comfort Siddiqi APRN [address] [place] [address] PCP - General 03/12/25 Km Wooten MD [address] [phone] Consulting Physician Radiation Oncology 02/14/25 documented as of this encounter
--- OUTSIDE RECORDS SUMMARY | 2025-05-15 16:20 | XMS_ITS | Encounter Summary ---
Author Organization [facility] Address [address] [place] [address] Care Team Providers Care Raise Drill Operator Name Role Phone Km Wooten MD Unavailable [phone] Comfort Siddiqi APRN Primary Care Provider [phone] Encounter Details Date Type Department Care Team (Late st Contact Info) Description 04/09/2025 Orders Only [facility] Radiation [address] [id number] [place] [address] Radiation Oncology, Physician, [address] [place], [place] [id number] Social History Tobacco Use Types Packs/Day Years [...] Appointment [facility] Radiation [address] [id number] [place] [address] Marci Gonzalez, IP ATTORNEY [address] [place] [address] documented as of this encounter [...] ONCOLOGY Reference Point Dosage Given to Date 27.09046011 Gy ARIA RADIATION ONCOLOGY Reference Point Session Dosage Given 1.43009782 Gy ARIA RADIATION ONCOLOGY Plan ID A1A8 [...] documented as of this encounter Care Teams Raise Drill Operator Relationship Specialty Start Date End Date Comfort Siddiqi APRN [address] [place] [address] PCP - General 03/12/25 Km Wooten MD [address] [place] [address] [address] [place] [address] Consulting Physician Radiation Oncology 02/14/25 documented as of this encounter
--- OUTSIDE RECORDS SUMMARY | 2025-05-15 16:20 | XMS_ITS ---
Author Organization [facility] Address [address] [place] [address] Care Team Providers Care Helminthology Teacher Name Role Phone Km Wooten MD Unavailable [phone] Comfort Siddiqi APRN Primary Care Provider [phone] Active Problems Problem Noted Date Diagnosed Date [...] Treatment Site Technique Goal Episode Provider 03/21/2025 04/26/2025 Bilateral Rectum Consolidative * Linked Problems Rectal cancer Treatment Courses* Course IMRT QA 04/26/2025 - 04/26/2025 Treatment Period Fraction Dose Fractions Total Dose Plans Planned A1A8 04/26/2025 - 04/26/2025 200 cGy 0 / 1 2 00 cGy Reference Points Delivered Verification 04/26/2025 - 04/26/2025 0 cGy * Course C1 03/21/2025 - 04/24/2025 Treatment Period Fraction Dose Fractions Total Dose Plans Planned A1A8 03/21/2025 - 04/24/2025 200 cGy 5 ,000 cGy Reference Points Delivered Pelvis 03/21/2025 - 04/24/2025 5,000 cGy
--- OUTSIDE RECORDS SUMMARY | 2025-05-15 16:20 | XMS_ITS | Encounter Summary ---
Author Organization [facility] Address [address] [place] [address] Care Team Providers Care Swimming Pool Salesperson Name Role Phone Km Wooten MD Unavailable [phone] Comfort Siddiqi APRN Primary Care Provider [phone] Encounter Details Date Type Department Care Team (Latest Contact Info) Description 04/29/2025 Travel Social History Tobacco Use Types Packs/Day [...] Appointment [facility] Radiation [address] [id number] [place] [address] Marci Gonzalez APRN [address] [phone] documented as of this encounter Goals Goal [...] documented as of this encounter Care Teams Swimming Pool Salesperson Relationship Specialty Start Date End Date Comfort Siddiqi APRN [address] [place] [address] PCP - General 03/12/25 Km Wooten MD [address] [phone] Consulting Physician Radiation Oncology 02/14/25 documented as of this encounter
--- OUTSIDE RECORDS SUMMARY | 2025-05-15 16:20 | XMS_ITS | Encounter Summary ---
Author Organization [facility] Address [address] [place] [address] Care Team Providers Care Evaluation Engineer Name Role Phone Km Wooten MD Unavailable [phone] Comfort Siddiqi APRN Primary Care Provider [phone] Encounter Details Date Type Department Care Team (Late st Contact Info) Description 04/26/2025 Orders Only [facility] CC Radiation [address] [id number] [place] [address] Radiation Oncology, Physician, [address] [place], [place] [phone] Social History Tobacco Use Types Packs/Day Years [...] Appointment [facility] CC Radiation [address] [id number] [place] [address] Marci Gonzalez, CROCHET BEADER [address] [place] [address] documented as of this encounter Goals Goal Patient Goal Type Associated Problems Recent Progress Patient-Stated? Author Autogenerat ed Goal Care Plan Autogenerated Problem No Lisa Johnston documented as of this encounter Procedures Procedure Name Priority Date/Time Associated Diagnosis Comments RAD ONC ARIA COURSE SUMMARY Routine 04/26/2025 6:43 PM EDT documented in this encounter Results * Rad Onc Aria Course Summary (04/26/2025 6:43 PM EDT) Course ID C1 ARIA RADIATION ONCOLOGY Course Intent Curative w/chemo ARIA RADIATION ONCOLOGY Course Start Date 03/01/2025 8:45 AM ARIA RADIATION ONCOLOGY Course End Date 04/26/2025 6:43 PM ARIA RADIATION ONCOLOGY Course First Treatment Date 03/21/2025 2:04 PM ARIA RADIATION ONCOLOGY Course Last Treatment Date 04/24/2025 2:26 PM ARIA RADIATION ONCOLOGY Course Elapsed Days 34 ARIA RADIATION ONCOLOGY Reference Point ID Pelvis ARIA RADIATION ONCOLOGY Reference Point Dosage Given to Date [id number] 0001 Gy ARIA RADIATION ONCOLOGY Plan ID A1A8 ARIA RADIATION ONCOLOGY Plan Name A1A8 ARIA RADIATION ONCOLOGY Plan Fractions Treated to Date 25 ARIA RADIATION ONCOLOGY Plan Total Fractions Prescribed 25 ARIA RADIATION ONCOLOGY Plan Prescribed Dose Per Fraction 2 Gy ARIA RADIATION ONCOLOGY Plan Total Prescribed Dose 5,000 CGy ARIA RADIATION ONCOLOGY Plan Primary Reference Point Pelvis ARIA RADIATION ONCOLOGY 04/26/2025 6:43 PM EDT Physician Radiation Oncology RADIATION ONCOLO [...] documented as of this encounter Care Teams Evaluation Engineer Relationship Specialty Start Date End Date Comfort Siddiqi APRN [address] [place] [address] PCP - General 03/12/25 Km Wooten MD [address] [place], [place] [id number] [place] [address] Consulting Physician Radiation Oncology 02/14/25 documented as of this encounter
--- OUTSIDE RECORDS SUMMARY | 2025-05-15 16:20 | XMS_ITS | Encounter Summary ---
Author Organization [facility] Address [address] [place] [address] Care Team Providers Care Clinical Molecular Geneticist Name Role Phone Km Wooten MD Unavailable [phone] Comfort Siddiqi APRN Primary Care Provider [phone] Encounter Details Date Type Department Care Team (Late st Contact Info) Description 03/27/2025 Orders Only [facility] CC Radiation [address] [id number] [place] [address] Radiation Oncology, Physician, [address] [place], [place] [phone] Social History Tobacco Use Types Packs/Day Years [...] Appointment [facility] CC Radiation [address] [id number] [place] [address] Marci Gonzalez, TOWER AIR TRAFFIC CONTROL SPECIALIST [address] [place] [address] documented as of this encounter [...] ONCOLOGY Reference Point Dosage Given to Date 9.17042115 Gy ARIA RADIATION ONCOLOGY Reference Point Session Dosage Given 1.63713791 Gy ARIA RADIATION ONCOLOGY Plan ID A1A8 [...] as of this encounter Care Teams Clinical Molecular Geneticist Relationship Specialty Start Date End Date Comfort Siddiqi APRN [address] [place] [address] PCP - General 03/12/25 Km Wooten MD [address] [place] [address] [address] [place] [address] Consulting Physician Radiation Oncology 02/14/25 documented as of this encounter
--- OUTSIDE RECORDS SUMMARY | 2025-05-15 16:20 | XMS_ITS | Clinical Summary ---
Author Organization [facility] Address [address] [place] [address] Care Team Providers Care Ragman Name Role Phone Km Wooten MD Unavailable [phone] Comfort Siddiqi APRN Primary Care Provider [phone] Allergies No known active allergies Medications atorvastatin [...] Encounters Date Type Department Care Team Description 04/29/2025 8:39 AM EST - 04/29/2025 11:59 PM EST Hospital Encounter [facility] Radiation [address] [phone] Discharge Disposition: Still a Patient 04/29/2025 Travel 04/26/2025 Orders Only [facility] Rad[facility] [address] [phone] Radiation Oncology, PhysicianMD 04/26/2025 Orders Only [facility] Radiation [address] Radiation Oncology, PhysicianMD 04/24/2025 1:41 PM EDT - 04/24/2025 11:59 PM EDT Hospital Encounter [facility] Radiation [address] [phone] Discharge Disposition: Still a Patient 04/24/2025 Orders Only [facility] Radiation [address] [phone] Radiation Oncology, PhysicianMD 04/23/2025 1:48 PM EDT - 04/23/2025 11:59 PM EDT Hospital Encounter [facility] Rad[facility] [address] [phone] Discharge Disposition: Still a Patient 04/23/2025 Orders Only [facility] Radiation [address] [phone] Radiation Oncology, PhysicianMD 04/22/2025 1:40 PM EDT - 04/22/2025 11:59 PM EDT Hospital Encounter [facility] Radiation [address] [phone] Discharge Disposition: Still a Patient 04/22/2025 8:10 AM EDT - 04/22/2025 1:39 PM EDT Hospital Encounter [facility] Radiation [address] [phone] Discharge Disposition: Still a Patient 04/22/2025 Orders Only [facility] Radiation [address] [phone] Radiation Oncology, PhysicianMD 04/22/2025 Travel 04/19/2025 1:42 PM EDT - 04/19/2025 11:59 PM EDT Hospital Encounter [facility] Radiation [address] [phone] Discharge Disposition: Still a Patient 04/19/2025 Orders Only [facility] Radiation [address] [phone] Radiation Oncology, PhysicianMD 04/18/2025 2:03 PM EDT - 04/18/2025 11:59 PM EDT Hospital Encounter [facility] Radiation [address] [address] Km Wooten MD Malignant neoplasm of rectum (CMS/HCC) (Primary Dx) Discharge Disposition: Still a Patient 04/18/2025 1:36 PM EDT - 04/18/2025 2:02 PM EDT Hospital Encounter [facility] Radiation [address] [phone] Discharge Disposition: Still a Patient 04/18/2025 Orders Only [facility] Radiation [address] [phone] Radiation Oncology, PhysicianMD 04/17/2025 1:52 PM EDT - 04/17/2025 11:59 PM EDT Hospital Encounter [facility] Radiation [address] [address] Discharge Disposition: Still a Patient 04/17/2025 Orders Only [facility] Radiation [address] [phone] Radiation Oncology, PhysicianMD 04/16/2025 1:28 PM EDT - 04/16/2025 11:59 PM EDT Hospital Encounter [facility] Radiation [address] [phone] Discharge Disposition: Still a Patient 04/16/2025 Orders Only [facility] Radiation [address] [phone] Radiation Oncology, PhysicianMD 04/15/2025 1:27 PM EDT - 04/15/2025 11:59 PM EDT Hospital Encounter [facility] Radiation [address] [phone] Discharge Disposition: Still a Patient 04/15/2025 8:33 AM EDT - 04/15/2025 1:26 PM EDT Hospital Encounter [facility] Radiation [address] [address] Discharge Disposition: Still a Patient 04/15/2025 Orders Only [facility] Radiation [address] [phone] Radiation Oncology, PhysicianMD 04/15/2025 Travel 04/12/2025 1:42 PM EDT - 04/12/2025 11:59 PM EDT Hospital Encounter [facility] Radiation [address] [address] Discharge Disposition: Still a Patient 04/12/2025 Orders Only [facility] Radiation [address] [phone] Radiation Oncology, PhysicianMD 04/11/2025 1:50 PM EDT - 04/11/2025 11:59 PM EDT Hospital Encounter [facility] Radiation [address] [phone] Km Wooten MD Malignant neoplasm of rectum (CMS/HCC) (Primary Dx) Discharge Disposition: Still a Patient 04/11/2025 1:31 PM EDT - 04/11/2025 1:49 PM EDT Hospital Encounter [facility] Radiation [address] [address] Discharge Disposition: Still a Patient 04/11/2025 Orders Only [facility] Radiation [address] [phone] Radiation Oncology, PhysicianMD 04/10/2025 1:31 PM EDT - 04/10/2025 11:59 PM EDT Hospital Encounter [facility] Radiation [address] [phone] Discharge Disposition: Still a Patient 04/10/2025 Orders Only [facility] Radiation [address] [phone] Radiation Oncology, PhysicianMD 04/09/2025 1:45 PM EDT - 04/09/2025 11:59 PM EDT Hospital Encounter [facility] Radiation [address] [phone] Discharge Disposition: Still a Patient 04/09/2025 Orders Only [facility] Radiation [address] [phone] Radiation Oncology, PhysicianMD 04/08/2025 1:38 PM EDT - 04/08/2025 11:59 PM EDT Hospital Encounter [facility] Radiation [address] [address] Discharge Disposition: Still a Patient 04/08/2025 5:30 AM EDT - 04/08/2025 1:37 PM EDT Hospital Encounter [facility] Radiation [address] [phone] Discharge Disposition: Still a Patient 04/08/2025 Orders Only [facility] Radiation [address] [phone] Radiation Oncology, PhysicianMD 04/08/2025 Travel 04/05/2025 2:06 PM EDT - 04/05/2025 11:59 PM EDT Hospital Encounter [facility] Radiation [address] [address] Discharge Disposition: Still a Patient 04/05/2025 Orders Only [facility] Radiation [address] [phone] Radiation Oncology, PhysicianMD 04/04/2025 1:53 PM EDT - 04/04/2025 11:59 PM EDT Hospital Encounter [facility] Radiation [address] [phone] Nancy Stanley MD Malignant neoplasm of rectum (CMS/HCC) (Primary Dx) Discharge Disposition: Still a Patient 04/04/2025 1:47 PM EDT - 04/04/2025 1:52 PM EDT Hospital Encounter [facility] Radiation [address] [phone] Discharge Disposition: Still a Patient 04/04/2025 Orders Only [facility] Radiation [address] [phone] Radiation Oncology, PhysicianMD 04/03/2025 1:29 PM EDT - 04/03/2025 11:59 PM EDT Hospital Encounter [facility] Radiation [address] [phone] Discharge Disposition: Still a Patient 04/03/2025 Orders Only [facility] Radiation [address] [address] Radiation Oncology, PhysicianMD 04/02/2025 1:58 PM EDT - 04/02/2025 11:59 PM EDT Hospital Encounter [facility] Radiation [address] [address] Discharge Disposition: Still a Patient 04/02/2025 Orders Only [facility] Radiation [address] [address] Radiation Oncology, PhysicianMD 04/01/2025 1:41 PM EDT - 04/01/2025 11:59 PM EDT Hospital Encounter [facility] Radiation [address] [phone] Discharge Disposition: Still a Patient 04/01/2025 5:30 AM EDT - 04/01/2025 1:40 PM EDT Hospital Encounter [facility] Radiation [address] [phone] Discharge Disposition: Still a Patient 04/01/2025 Orders Only [facility] Radiation [address] [address] Radiation Oncology, PhysicianMD 04/01/2025 Travel 03/29/2025 1:25 PM EDT - 03/29/2025 11:59 PM EDT Hospital Encounter [facility] Radiation [address] [address] Discharge Disposition: Still a Patient 03/29/2025 Orders Only [facility] Radiation [address] [address] Radiation Oncology, PhysicianMD 03/28/2025 1:54 PM EDT - 03/28/2025 11:59 PM EDT Hospital Encounter [facility] Radiation [address] [phone] Km Wooten MD Malignant neoplasm of rectum (CMS/HCC) (Primary Dx) Discharge Disposition: Still a Patient 03/28/2025 1:37 PM EDT - 03/28/2025 1:53 PM EDT Hospital Encounter [facility] Radiation [address] [phone] Discharge Disposition: Still a Patient 03/28/2025 Orders Only [facility] Radiation [address] [address] Radiation Oncology, PhysicianMD 03/27/2025 1:38 PM EDT - 03/27/2025 11:59 PM EDT Hospital Encounter [facility] Radiation [address] [phone] Discharge Disposition: Still a Patient 03/27/2025 Orders Only [facility] Radiation [address] [phone] Radiation Oncology, PhysicianMD 03/26/2025 1:30 PM EDT - 03/26/2025 11:59 PM EDT Hospital Encounter [facility] Radiation [address] [phone] Discharge Disposition: Still a Patient 03/26/2025 Orders Only [facility] Radiation [address] [address] Radiation Oncology, PhysicianMD 03/25/2025 1:35 PM EDT - 03/25/2025 11:59 PM EDT Hospital Encounter [facility] Radiation [address] [address] Discharge Disposition: Still a Patient 03/25/2025 5:30 AM EDT - 03/25/2025 1:34 PM EDT Hospital Encounter [facility] Radiation [address] [phone] Discharge Disposition: Still a Patient 03/25/2025 Orders Only [facility] Radiation [address] [phone] Radiation Oncology, PhysicianMD 03/25/2025 Travel 03/22/2025 1:49 PM EDT - 03/22/2025 11:59 PM EDT Hospital Encounter [facility] Radiation [address] [phone] Discharge Disposition: Still a Patient 03/22/2025 Orders Only [facility] Radiation [address] [address] Radiation Oncology, Physician, 03/21/2025 2:12 PM EDT - 03/21/2025 11:59 PM EDT Hospital Encounter [facility] Radiation [address] [phone] Km Wooten MD Malignant neoplasm of rectum (CMS/HCC) (Primary Dx) Discharge Disposition: Still a Patient 03/21/2025 1:48 PM EDT - 03/21/2025 2:11 PM EDT Hospital Encounter [facility] Radiation [address] [phone] Km Wooten MD Discharge Disposition: Still a Patient 03/21/2025 Travel 03/21/2025 Orders Only [facility] Radiation [address] [address] Radiation Oncology, Physician, 03/20/2025 Travel 03/18/2025 8:34 AM EDT - 03/18/2025 11:59 PM EDT Hospital Encounter [facility] Radiation [address] [address] Discharge Disposition: Still a Patient 03/18/2025 Travel 03/15/2025 9:00 AM EDT Office Visit [facility] Head, Neck & Respiratory 800 [facility], [address] [place] [phone] Deepak Haider MD Malignant neoplasm of rectum (CMS/HCC) (Primary Dx) 03/15/2025 Travel 03/12/2025 10:12 AM EDT Anesthesia Event [facility] Endoscopy [address] [place] [phone] Shaun Hanley MD 03/12/2025 9:12 AM EDT - 03/12/2025 11:59 PM EDT Hospital Encounter [facility] Endoscopy [address] [place] [phone] Eric Tellez MD Lung nodule Discharge Disposition: Home or Self Care 03/12/2025 Travel 03/11/2025 5:00 PM EDT - 03/11/2025 11:59 PM EDT Hospital Encounter [facility] Radiation [address] [address] Discharge Disposition: Still a Patient 03/11/2025 Travel 03/04/2025 8:42 AM EDT - 03/04/2025 11:59 PM EDT Hospital Encounter [facility] Radiation [address] [address] Discharge Disposition: Still a Patient 03/04/2025 Travel 03/01/2025 8:40 AM EDT - 03/01/2025 11:59 PM EDT Hospital Encounter [facility] Radiation [address] [address] Km Wooten MD Discharge Disposition: Still a Patient 02/28/2025 3:30 PM EDT Office Visit [facility] Head, Neck & Respiratory [address] [place] [address] Eric Tellez MD Adenopathy (Primary Dx) 02/28/2025 Travel 02/26/[address] [facility] [address] [address] Perlita Her RN 02/26/2025 Travel 02/25/2025 11:50 AM EDT - 02/25/2025 11:59 PM EDT Hospital Encounter [facility] Radiation [address] [address] Discharge Disposition: Still a Patient 02/21/2025 Telephone Pav CC Head, Neck & Respiratory [address] [place] [address] Eric Tellez MD 02/20/[address] [facility] [address] [phone] Susi Bustos 02/20/[address] [facility] [address] [place] [address] Jeanbruno Susi 2025 2:44 PM EDT - 2025 11:59 PM EDT Hospital Encounter [facility] Radiation [address] [phone] Km Wooten MD Malignant neoplasm of rectum (CMS/HCC) (Primary Dx) Discharge Disposition: Still a Patient 2025 Travel 02/18/2025 Orders Only [facility] Radiation [address] [phone] Km Wooten MD Elevated PSA (Primary Dx) 02/14/2025 Orders Only [facility] [address] [place] [address] Con Sumner MD 02/14/2025 Telephone [facility] Radiation [address] [phone] Km Wooten MD 02/14/2025 Orders Only [facility] [address] [place] [address] Con Sumner MD Malignant neoplasm of rectum (CMS/HCC) (Primary Dx) from Last 3 Months Family History Medical [...] Appointment [facility] Radiation [id number] [place] [address] Marci Gonzalez, BARREL LOADER [employer] CLEANER [address] [place] [address] Health Maintenance Due Date Last Done Comments [...] 02/20/2016 Sigmoidoscopy 02/20/2016 [facility]-Colorectal Cancer Screening 02/20/2016 [id number] Vaccine ( season) 2025 06/24/2021, 11/08/2020, 10/11/2020 [...] Plan Autogenerated Problem No Preston Lisa Thayer Procedures Procedure Name Priority Date/Time Associated Diagnosis Comments RAD ONC ARIA COURSE SUMMARY Routine 04/26/2025 6:43 PM EDT RAD ONC ARIA COURSE SUMMARY Routine 04/26/2025 6:42 PM EDT RAD ONC ARIA SESSION SUMMARY Routine 04/24/2025 [...] ANESTHESIA PLACEHOLDER Routine 03/12/2025 10:22 AM EDT ND AN ELECTIVE ENDOTRACHEAL AIRWAY Routine 03/12/2025 10:22 AM EDT from Last 3 Months Results * Rad Onc Aria Course Summary [...] ONCOLOGY Reference Point Dosage Given to Date [phone] 0001 Gy ARIA RADIATION ONCOLOGY Plan ID [...] 6:43 PM EDT Physician Radiation Oncology RADIATION ONCLUZ GY ORDERABLES Final Result ARIA RADIATION ONCOLOGY * Rad Onc Aria Course Summary (04/26/2025 [...] 04/26/2025 6:42 PM EDT Physician Radiation Oncology RADIATION ONCOLO GY ORDERABLES Final Result ARIA RADIATION ONCOLOGY * Rad Onc Aria Session Summary (04/24/2025 [...] ONCOLOGY Reference Point Dosage Given to Date [phone] 0001 Gy ARIA RADIATION ONCOLOGY Reference Point Session Dosage Given 1.72607808 Gy ARIA RADIATION ONCOLOGY Plan ID [id number] [...] ONCOLOGY Reference Point Dosage Given to Date 47.779964967 0001 Gy ARIA RADIATION ONCOLOGY Reference Point Session Dosage Given 1.49836726 Gy ARIA RADIATION ONCOLOGY Plan ID [id number] [...] ONCOLOGY Reference Point Dosage Given to Date 45.063011643 0001 Gy ARIA RADIATION ONCOLOGY Reference Point Session Dosage Given 1.69050585 Gy ARIA RADIATION ONCOLOGY Plan ID [id number] [...] ONCOLOGY Reference Point Dosage Given to Date 43.35813310 Gy ARIA RADIATION ONCOLOGY Reference Point Session Dosage Given 1.65507667 Gy ARIA RADIATION ONCOLOGY Plan ID [id number] [...] ONCOLOGY Reference Point Dosage Given to Date 41.87241466 Gy ARIA RADIATION ONCOLOGY Reference Point Session Dosage Given 1.65145272 Gy ARIA RADIATION ONCOLOGY Plan ID [id number] [...] ONCOLOGY Reference Point Dosage Given to Date 39.1209403 Gy ARIA RADIATION ONCOLOGY Reference Point Session Dosage Given 1.38413013 Gy ARIA RADIATION ONCOLOGY Plan ID [id number] [...] ONCOLOGY Reference Point Dosage Given to Date 37.72867657 Gy ARIA RADIATION ONCOLOGY Reference Point Session Dosage Given 1.19091524 Gy ARIA RADIATION ONCOLOGY Plan ID [id number] [...] ONCOLOGY Reference Point Dosage Given to Date 35.53834401 Gy ARIA RADIATION ONCOLOGY Reference Point Session Dosage Given 1.88291914 Gy ARIA RADIATION ONCOLOGY Plan ID [id number] [...] ONCOLOGY Reference Point Dosage Given to Date 33.73217820 Gy ARIA RADIATION ONCOLOGY Reference Point Session Dosage Given 1.66065846 Gy ARIA RADIATION ONCOLOGY Plan ID [id number] [...] ONCOLOGY Reference Point Dosage Given to Date 31.64343030 Gy ARIA RADIATION ONCOLOGY Reference Point Session Dosage Given 1.53705713 Gy ARIA RADIATION ONCOLOGY Plan ID [id number] [...] 04/11/2025 1:50 PM EDT Physician Radiation Oncology MD RADIATION [...] ONCOLOGY Reference Point Dosage Given to Date 29.93723112 Gy ARIA RADIATION ONCOLOGY Reference Point Session Dosage Given 1.29701944 Gy ARIA RADIATION ONCOLOGY Plan ID [id number] [...] ONCOLOGY Reference Point Dosage Given to Date 27.23195476 Gy ARIA RADIATION ONCOLOGY Reference Point Session Dosage Given 1.79907958 Gy ARIA RADIATION ONCOLOGY Plan ID [id number] [...] ONCOLOGY Reference Point Dosage Given to Date 25.24633841 Gy ARIA RADIATION ONCOLOGY Reference Point Session Dosage Given 1.55301018 Gy ARIA RADIATION ONCOLOGY Plan ID [id number] [...] ONCOLOGY Reference Point Dosage Given to Date 23.95711891 Gy ARIA RADIATION ONCOLOGY Reference Point Session Dosage Given 1.15986598 Gy ARIA RADIATION ONCOLOGY Plan ID [id number] [...] ONCOLOGY Reference Point Dosage Given to Date 21.73240219 Gy ARIA RADIATION ONCOLOGY Reference Point Session Dosage Given 1.87585820 Gy ARIA RADIATION ONCOLOGY Plan ID [id number] [...] ONCOLOGY Reference Point Dosage Given to Date 19.8024609 Gy ARIA RADIATION ONCOLOGY Reference Point Session Dosage Given 1.10247737 Gy ARIA RADIATION ONCOLOGY Plan ID [id number] [...] ONCOLOGY Reference Point Dosage Given to Date 17.76008025 Gy ARIA RADIATION ONCOLOGY Reference Point Session Dosage Given 1.20210669 Gy ARIA RADIATION ONCOLOGY Plan ID [id number] [...] ONCOLOGY Reference Point Dosage Given to Date 15.56225348 Gy ARIA RADIATION ONCOLOGY Reference Point Session Dosage Given 1.50899083 Gy ARIA RADIATION ONCOLOGY Plan ID [id number] [...] ONCOLOGY Reference Point Dosage Given to Date 13.00214108 Gy ARIA RADIATION ONCOLOGY Reference Point Session Dosage Given 1.00734518 Gy ARIA RADIATION ONCOLOGY Plan ID [id number] [...] ONCOLOGY Reference Point Dosage Given to Date 11.50175637 Gy ARIA RADIATION ONCOLOGY Reference Point Session Dosage Given 1.48054364 Gy ARIA RADIATION ONCOLOGY Plan ID [id number] [...] 1:54 PM EDT Physician Radiation Oncology RADIATION ONCLUZ [...] ONCOLOGY Reference Point Dosage Given to Date 9.84404736 Gy ARIA RADIATION ONCOLOGY Reference Point Session Dosage Given 1.51136429 Gy ARIA RADIATION ONCOLOGY Plan ID [id number] [...] 2:10 PM EDT Physician Radiation Oncology RADIATION ONCLUZ [...] ONCOLOGY Reference Point Dosage Given to Date 7.88473579 Gy ARIA RADIATION ONCOLOGY Reference Point Session Dosage Given 1.95073853 Gy ARIA RADIATION ONCOLOGY Plan ID [id number] [...] ONCOLOGY Reference Point Dosage Given to Date 5.50004897 Gy ARIA RADIATION ONCOLOGY Reference Point Session Dosage Given 1.89551982 Gy ARIA RADIATION ONCOLOGY Plan ID [id number] [...] ONCOLOGY Reference Point Dosage Given to Date 3.89930890 Gy ARIA RADIATION ONCOLOGY Reference Point Session Dosage Given 1.16658961 Gy ARIA RADIATION ONCOLOGY Plan ID [id number] [...] ONCOLOGY Reference Point Dosage Given to Date 1.04063831 Gy ARIA RADIATION ONCOLOGY Reference Point Session Dosage Given 1.03438069 Gy ARIA RADIATION ONCOLOGY Plan ID [id number] [...] MD RADIATION ONCOLO GY ORDERABLES Final Result [facility] RADIATION ONCOLOGY * Fungal Culture, Tissue and PARMINDER (03/12/2025 12:37 PM EDT) Culture Reading Mycological 4 Weeks No Fungal Growth at 4 Weeks 04/09/2025 6:43 AM EDT [facility] PARMINDER No fungal elements seen 04/09/2025 6:43 AM EDT [facility] Fine Needle Aspirate Structure of lymph node / Unknown Non-blood Collection / Unknown 03/12/2025 12:37 PM EDT 03/12/2025 12:46 PM EDT Eric Tellez MD LAB MICROBIOLOGY - GENERAL OR DERABLES Final Result [facility] [address] [place] [place] [address] * AFB Culture, Non Respiratory Source and Acid Fast Stain (03/12/2025 12:37 PM EDT) AFB Culture No Mycobacterial Growth at 6 Weeks 04/24/2025 4:02 PM EDT [facility] Acid Fast Stain No acid fast bacilli seen 04/24/2025 4:02 PM EDT [facility] Fine Needle Aspirate Structure of lymph node / Unknown Non-blood Collection / Unknown 03/12/2025 12:37 PM EDT 03/12/2025 12:46 PM EDT Eric Tellez MD LAB MICROBIOLOGY - GENERAL OR DERABLES Final Result Performing Organization Address [facility] Co de Phone Number [facility] [address] [place] [address] * Tissue Culture and Gram Stain (03/12/2025 12:37 PM EDT) Culture No growth at day 4 2024 2:01 PM EDT [facility] Gram Stain Result No organisms seen 03/16/2025 2:01 PM EDT [facility] Gram Stain Result No polymorphonuclear leukocytes seen 03/16/2025 2:01 PM EDT [facility] Fine Needle Aspirate Structure of lymph node / Unknown Non-blood Collection / Unknown 03/12/2025 12:37 PM EDT 03/12/2025 12:46 PM EDT Eric Tellez MD LAB MICROBIOLOGY - GENERAL OR DERABLES Final Result Performing Organization Address [facility] de Phone Number [facility] [address] [place] [address] * (ABNORMAL) Anaerobic Culture (03/12/2025 12:37 PM EDT) Culture No anaerobes isolated 03/16/2025 4:33 PM EDT [facility] Culture Streptococcus mitis/oralis group(A) 03/16/2025 4:33 PM EDT [facility] Comment: This isolate has been identified using the FDA Approved MALDI UPEKyper CA System The organism value for this [...] OR DERABLES Final Result Performing Organization Address [facility] Co de Phone Number [facility] [address] [place] [address] * Bronchoscopy w EBUS (03/12/2025 11:25 AM [...] Nodes observed under convex ultrasound guidance. Onsite under trimmer was present and cytology results were preliminarily [...] Mccoy, SUHAS Endo Nurse Carmen Zelaya Endo Poured Concrete Wall Technician [place]ma [place] CRNA UROLOGIST MD Eric Tellez MD Proceduralist Shaun Hanley MD Anesthesiologist Impression Overall Impression: Normal endobronchial exam The three lymph nodes sampled today on [address] were benign Post Procedure Diagnosis None Recommendation Follow-up: with referring provider Attestation I was present for the entire procedure Billing Codes See procedure report details above. 73320 - EBUS convex prove 1 or 2 lesions GC - Service has been performed in part by a resident/fellow under the direction of a teaching physician us Eric Tellez MD GI PROCEDURE ORDERABLES Final Result * Fine needle aspiration (03/12/2025 10:43 AM EDT) Case Report Cytology Case: [id number] Authorizing Provider: Eric Tellez MD Collected: 03/12/2025 1043 Ordering Location: [facility] H Endoscopy Received: 03/12/2025 1129 Pathologist: [...] FINE NEEDLE ASPIRATION 5 12:59 PM EDT [facility] Final Diagnosis A. LYMPH NODE, STATION 7, ENDOBRONCHIAL ULTRASOUND-GUIDED FINE NEEDLE ASPIRATION: NO EVIDENCE OF MALIGNANCY, HEMODILUTE LYMPHOID TISSUE. B. LYMPH NODE, 4 RIGHT, ENDOBRONCHIAL ULTRASOUND-GUIDED FINE NEEDLE ASPIRATION: NO EVIDENCE OF MALIGNANCY, HEMODILUTE LYMPHOID TISSUE. C. LYMPH NODE, 11 RIGHT, ENDOBRONCHIAL ULTRASOUND-GUIDED FINE NEEDLE ASPIRATION: NO EVIDENCE OF MALIGNANCY, HEMODILUTE LYMPHOID TISSUE. 5 12:59 PM EDT [facility] at 1259 EDT Comment The possibility of rare poorly-formed granulomas is not excluded, especially in the station 7 lymph node sample. For this reason, S and AFB stains are performed. These are negative for organisms. 12:59 PM EDT [facility] Special and Immunohistochemical Stains Special Stain: A1-2 Acid Fast Bacteria A1-3 GMS IHC: There are no tasks to display for the given criteria. All controls show appropriate reactivity. All immunohistochemis try, in situ hybridization, and histochemical tests were developed by and are performed at the [facility], [address] [place] [address]. All tests reported here, except those addressing [...] on decalcified specimens. 5 12:59 PM EDT [facility] Immediate Evaluation A. FNA performed [...] physician listed above. 5 12:59 PM EDT [facility] Gross Description A. LYMPH NODE, [...] Time: 1h 31m 5 12:59 PM EDT [facility] Note: A resident was involved in the service. I attest I examined the relevant preparations for the specimens and confirmed the diagnosis or interpretation. 5 12:59 PM EDT [facility] Clinical Information R91.1 - Lung nodule [ICD-10-CM] 12:59 PM EDT [facility] Fine Needle Aspirate Structure of [...] CYTOLOGY ORDERABLES Final Result Performing Organization Address City/State/[facility] Phone Number [facility] [address] [place] [address] * ND AN ELECTIVE ENDOTRACHEAL AIRWAY, PB ANESTHESIA PLACEHOLDER (03/12/2025 10:22 AM EDT) Narrative Palma Marin CRNA - 03/12/2025 10:22 AM EDT Palma Marin CRNA 03/12/2025 10:32 AM Airway Date/Time: 03/12/2025 10:22 AM Reason: elective Airway not difficult General Information and Staff Patient location during procedure: OR UROLOGIST MD: Palma Marin CRNA Performed: UROLOGIST MD Patient Condition Indications for airway management: anesthesia [...] Hanley MD ANESTHESIA ORDERABLES Fin al Result from Last 3 Months Additional Health Concerns Active Problems Noted Date Diagnosed Date Autogenerated Problem 02/28/2025 Insurance Care Teams Ragman Relationship Specialty Start Date End Date Comfort Siddiqi APRN [address] [place] [address] PCP - General 03/12/25 Km Wootne MD [address] [place] [phone] Consulting Physician Radiation Oncology 02/14/25
--- OUTSIDE RECORDS SUMMARY | 2025-05-15 16:20 | XMS_ITS | Encounter Summary ---
Author Organization Healthcare Address [address] [place] [address] Care Team Providers Care Distributing Clerk Name Role Phone Km Wooten MD Unavailable [phone] Comfort Siddiqi APRN Primary Care Provider [phone] Encounter Details Date Type Department Care Team (Late st Contact Info) Description 04/05/2025 Orders Only [facility] [address] [id number] [place] [address] Radiation Oncology, Physician, [address] [place], [place] [id number] Social History Tobacco Use Types Packs/Day Years [...] Appointment [facility] [address] [id number] [place] [address] Marci Gonzalez, QUILLER TENDER [address] [place] [address] documented as of this encounter [...] ONCOLOGY Reference Point Dosage Given to Date [id number] Gy ARIA RADIATION ONCOLOGY Reference Point Session Dosage Given [id number] Gy ARIA RADIATION ONCOLOGY Plan ID [id number] [...] documented as of this encounter Care Teams Distributing Clerk Relationship Specialty Start Date End Date Comfort Siddiqi APRN [address] [place] [address] PCP - General 03/12/25 Km Wooten MD [address] [place] [address] [address] [place] [address] Consulting Physician Radiation Oncology 02/14/25 documented as of this encounter
--- OUTSIDE RECORDS SUMMARY | 2025-05-15 16:20 | XMS_ITS | Encounter Summary ---
Author Organization Healthcare Address [address] [place] [address] Care Team Providers Care Digital Product Manager Name Role Phone Km Wooten MD Unavailable [phone] Comfort Siddiqi APRN Primary Care Provider [phone] Encounter Details Date Type Department Care Team (Late st Contact Info) Description 04/03/2025 Orders Only [facility] [address] [id number] [place] [address] Radiation Oncology, Physician, [address] [place], [place] [id number] Social History Tobacco Use Types Packs/Day Years [...] Appointment [facility] [address] [id number] [place] [address] Marci Gonzalez, ACADEMIC INTERN [address] [place] [address] documented as of this encounter [...] ONCOLOGY Reference Point Dosage Given to Date 19.8488166 Gy ARIA RADIATION ONCOLOGY Reference Point Session Dosage Given 1.48839120 Gy ARIA RADIATION ONCOLOGY Plan ID [id number] [...] as of this encounter Care Teams Digital Product Manager Relationship Specialty Start Date End Date Comfort Siddiqi APRN [address] [place] [address] PCP - General 03/12/25 Km Wooten MD [address] [place], [place] [id number] [place] [address] Consulting Physician Radiation Oncology 02/14/25 documented as of this encounter
--- OUTSIDE RECORDS SUMMARY | 2025-05-15 16:20 | XMS_ITS | Encounter Summary ---
Author Organization Healthcare Address [address] [place] [address] Care Team Providers Care Aeronautical Engineering Teacher Name Role Phone Km Wooten MD Unavailable [phone] Comfort Siddiqi APRN Primary Care Provider [phone] Encounter Details Date Type Department Care Team (Late st Contact Info) Description 03/26/2025 Orders Only [facility] [address] [id number] [place] [address] Radiation Oncology, Physician, [address] [place], [place] [id number] Social History Tobacco Use Types Packs/Day Years [...] Appointment [facility] [address] [id number] [place] [address] Marci Gonzalez, LINE HELPER [address] [place] [address] documented as of this encounter [...] ONCOLOGY Reference Point Dosage Given to Date [id number] Gy ARIA RADIATION ONCOLOGY Reference Point Session Dosage Given 1.19738339 Gy ARIA RADIATION ONCOLOGY Plan ID [id number] [...] documented as of this encounter Care Teams Aeronautical Engineering Teacher Relationship Specialty Start Date End Date Comfort Siddiqi APRN [address] [place] [address] PCP - General 03/12/25 Km Wooten MD [address] [place] [address] [address] [place] [address] Consulting Physician Radiation Oncology 02/14/25 documented as of this encounter
--- OUTSIDE RECORDS SUMMARY | 2025-05-15 16:20 | XMS_ITS | Encounter Summary ---
Author Organization Healthcare Address [address] [place] [address] Care Team Providers Care Elevator Mechanic Name Role Phone Km Wooten MD Unavailable [phone] Comfort Siddiqi APRN Primary Care Provider [phone] Encounter Details Date Type Department Care Team (Late st Contact Info) Description 03/28/2025 Orders Only [facility] [address] [id number] [place] [address] Radiation Oncology, Physician, [address] [place], [place] [id number] Social History Tobacco Use Types Packs/Day Years [...] Appointment [facility] [address] [id number] [place] [address] Marci Gonzalez, NUTRITION COORDINATOR [address] [place] [address] documented as of this encounter [...] ONCOLOGY Reference Point Dosage Given to Date 11.84907365 Gy ARIA RADIATION ONCOLOGY Reference Point Session Dosage Given [id number] Gy ARIA RADIATION ONCOLOGY Plan ID [id number] [...] documented as of this encounter Care Teams Elevator Mechanic Relationship Specialty Start Date End Date Comfort Siddiqi APRN [address] [place] [address] PCP - General 03/12/25 Km Wooten MD [address] [place] [address] [address] [place] [address] Consulting Physician Radiation Oncology 02/14/25 documented as of this encounter
--- OUTSIDE RECORDS SUMMARY | 2025-05-15 16:20 | XMS_ITS | Encounter Summary ---
Author Organization Healthcare Address [address] [place] [address] Care Team Providers Care Special Needs Caregiver Name Role Phone Km Wooten MD Unavailable [phone] Comfort Siddiqi APRN Primary Care Provider [phone] Encounter Details Date Type Department Care Team (Late st Contact Info) Description 04/08/2025 Orders Only [facility] [address] [id number] [place] [address] Radiation Oncology, Physician, [address] [place], [place] [id number] Social History Tobacco Use Types Packs/Day Years [...] Appointment [facility] [address] [id number] [place] [address] Marci Gonzalez, PRELIMINARY SCHOOL PSYCHOLOGIST [address] [place] [address] documented as of this encounter [...] ONCOLOGY Reference Point Dosage Given to Date 25.53545083 Gy ARIA RADIATION ONCOLOGY Reference Point Session Dosage Given 1.91658475 Gy ARIA RADIATION ONCOLOGY Plan ID [id number] [...] as of this encounter Care Teams Special Needs Caregiver Relationship Specialty Start Date End Date Comfort Siddiqi APRN [address] [place] [address] PCP - General 03/12/25 Km Wooten MD [address] [place] [address] [address] [place] [address] Consulting Physician Radiation Oncology 02/14/25 documented as of this encounter
--- OUTSIDE RECORDS SUMMARY | 2025-05-15 16:20 | XMS_ITS | Encounter Summary ---
Author Organization Healthcare Address [address] [place] [address] Care Team Providers Care Youth Care Worker Name Role Phone Km Wooten MD Unavailable [phone] Comfort Siddiqi APRN Primary Care Provider [phone] Encounter Details Date Type Department Care Team (Late st Contact Info) Description 03/21/2025 Orders Only [facility] [address] [id number] [place] [address] Radiation Oncology, Physician, [address] [place], [place] [id number] Social History Tobacco Use Types Packs/Day Years [...] Appointment [facility] [address] [id number] [place] [address] Marci Gonzalez, TELEVISION REPAIR TEACHER [address] [place] [address] documented as of this encounter [...] ONCOLOGY Reference Point Dosage Given to Date 1.97313738 Gy ARIA RADIATION ONCOLOGY Reference Point Session Dosage Given 1.51908928 Gy ARIA RADIATION ONCOLOGY Plan ID [id number] [...] documented as of this encounter Care Teams Youth Care Worker Relationship Specialty Start Date End Date Comfort Siddiqi APRN [address] [place] [address] PCP - General 03/12/25 Km Wooten MD [address] [place] [address] [address] [place] [address] Consulting Physician Radiation Oncology 02/14/25 documented as of this encounter
--- OUTSIDE RECORDS SUMMARY | 2025-05-15 16:21 | XMS_ITS | Encounter Summary ---
Author Organization [facility] Address [address] [place] [address] Care Team Providers Care Corporate Aircraft Mechanic Name Role Phone Km Wooten MD Unavailable [phone] Comfort Siddiqi APRN Primary Care Provider [phone] Encounter Details Date Type Department Care Team [...] Appointment [facility] [address] [id number] [place] [address] Marci Gonzalez APRN [address] [phone] documented as of this encounter Goals Goal [...] documented as of this encounter Care Teams Corporate Aircraft Mechanic Relationship Specialty Start Date End Date Comfort Siddiqi APRN [address] [place] [address] PCP - General 03/12/25 Km Wooten MD [address] [phone] Consulting Physician Radiation Oncology 02/14/25 documented as of this encounter
--- OUTSIDE RECORDS SUMMARY | 2025-05-15 16:21 | XMS_ITS | Encounter Summary ---
Author Organization [facility] Address [address] [place] [address] Care Team Providers Care Building Carpenter Name Role Phone Km Wooten MD Unavailable [phone] Comfort Siddiqi APRN Primary Care Provider [phone] Encounter Details Date Type Department Care Team [...] Appointment [facility] [address] [id number] [place] [address] Marci Gonzalez APRN [address] [phone] documented as of this encounter Goals Goal [...] documented as of this encounter Care Teams Building Carpenter Relationship Specialty Start Date End Date Comfort Siddiqi APRN [address] [place] [address] PCP - General 03/12/25 Km Wooten MD [address] [phone] Consulting Physician Radiation Oncology 02/14/25 documented as of this encounter
== END 2025-05-15 23:59 | disposition home or self-care (01) ==
LOC: PREOP 15:15
PROVIDERS: PCP Family Medicine; Visit Provider Surgery
DX: Z01.810 Encounter for preprocedural cardiovascular examination (principal); R94.31 Abnormal electrocardiogram [ECG] [EKG]
CPT/HCPCS: 93005

== ENCOUNTER 2025-05-17 07:19 | Day surgery (SDC) | payer OTHER, SELFPAY ==
[2025-05-15 15:38] VITALS: BMI 44.6
[2025-05-17] VITALS (8 sets, daily range): BP systolic 130–156; BP diastolic 71–96; PULSE 67–77; RESP 15–20; TEMP 36.1; O2SAT 94–98
[2025-05-17] MEDS: 0.9 % SODIUM CHLORIDE 1000ML 1,000 ML 25 ML IV (07:50)
--- NOTE | 2025-05-17 07:54 | P.PNANES_ITS ---
[facility] Disclaimer: The information contained in this section may have been updated after the patient was seen, as this information can be updated by other users. 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 Dog bite Wound of abdomen Need for tetanus, diphtheria, and acellular pertussis (Tdap) vaccine Sinusitis Strep throat Encounter for removal of sutures Rectal cancer Hyperlipidemia Surgical History Hx of cholecystectomy Family History Mother H/O heart surgery Father H/O heart surgery Grandfather Diabetes Social History Smoking Status: Never smoker alcohol intake: never substance use type: denies use current occupational status: employed Travel in the last 8 weeks?: None Have you lived/traveled outside US in past 30 days?: No Contact w/someone who lives/traveled outside US past 30 days?: No Exposure to someone with infectious disease in past 14 days?: No Do you have a fever (greater than 100.4 F or 38 C)?: No Have you tested positive for COVID-19?: No Exposed to someone with COVID-19 in past 14 days?: No Do you have a sore throat?: No Do you have a cough?: No Do you have any weakness?: No Do you have any diarrhea?: No Are you experiencing any unusual bleeding?: No Do you have any muscle aches/pain?: No Do you have any abdominal pain?: No Are you experiencing loss of taste or smell?: No [facility] Anesthesia Checklist Patient Identification Patient Identification: Arm Band Structural Data Admitted From: Home Planned Operative Procedure/s: Port-a-Cath Placement Consent for Planned Operative Procedure(s) Verified: Yes Verified Documents: Surgical Consent and History and Physical NPO Status Verified Time NPO: 00:00 Additional verifications Anesthesia Reactions: No Hx Blood Transfusions: No Blood Transfusion Reaction: No Airway Assessment Mallampati Score:: Class II C-Spine Mobility Assessed: Yes TMJ Mobility Assessed: Yes Dentition: Good Dentition Neurological Assessment Level of Consciousness: Awake, Alert and Appropriate Anesthesia Plan Anesthesia Risk discussed: Yes Anesthesia Plan: Verified ASA Class: III Anesthesia Type: General
[2025-05-17] MEDS: CEFAZOLIN 2GM VIAL 2 GM (08:26)
[2025-05-17] MEDS: SODIUM CHLORIDE 0.9% 20ML VIAL 40 ML IV (08:52)
[2025-05-17] MEDS: LIDOCAINE 1% 20ML MDV 20 ML (08:55)
--- NOTE | 2025-05-17 09:38 | P.OP_ITS ---
Date of procedure: 05/17/25 Pre-op Diagnosis:: Rectal cancer Post-op Diagnosis:: Same Procedure performed:: Port-A-Cath placement Surgeon:: Trevor Tom MD PROPOSAL REVIEW ANALYST:: Helga Muniz Anesthesia: local and LMA Estimated blood loss (mL): 10 Operative findings:: Left subclavian vein access Port flushed with heparinized saline Operative note:: After informed consent was obtained the patient was taken to the operating room and placed in the supine position. General anesthesia with laryngeal mask airway was induced. His neck/chest region was prepped and draped in a sterile fashion. A large bore needle was utilized to access the left subclavian vein. The vein was accessed with some difficulty likely secondary to clavicular angulation and body habitus. A guidewire was placed in position. After infiltration with local anesthetic a transverse incision was made at the guidewire exit site. A combination of electrocautery, sharp dissection, and blunt dissection was then utilized to create a pocket for the port hub. Utilizing a modified Seldinger technique, the port catheter was placed in position and confirmed fluoroscopically. The catheter was cut to appropriate length and secured to the port hub. The port hub was then secured to the underlying fascia with interrupted Prolene. The deep subcutaneous tissue was reapproximated with interrupted Vicryl. Skin was then closed with 4-0 Monocryl in a running subcuticular manner. Dressings were applied after the port was flushed with heparinized saline. The patient was then transferred to recovery in stable condition after removal of his laryngeal mask airway. Condition: stable Disposition: PACU Specimens:: None Complications:: No immediate. Chest x-ray pending.
--- NOTE | 2025-05-17 09:43 | XR_ITS ---
FINAL REPORT CLINICAL HISTORY: PORT A CATH IN OR FT: 0:34 26.57 MGY FINDINGS: FLUOROSCOPY LESS THAN 1 HOUR HISTORY: Fluoroscopy guidance. FINDINGS: Fluoroscopic guidance was provided for Port-A-Cath placement in the OR. Three spot films were obtained. A total of 0:34 minutes of fluoroscopy time were used. DAP: 26.57 mGy IMPRESSION: As above. Reviewed, Interpreted and Dictated by Con Sanchez MD Transcribed by Marci Angel Authenticated and [facility]
--- NOTE | 2025-05-17 09:46 | XR_ITS ---
FINAL REPORT TECHNIQUE: Single view chest CLINICAL HISTORY: port placement COMPARISON: None FINDINGS: The heart size is mildly enlarged. A left subclavian catheter is present with its tip in the superior vena cava. The mediastinum is normal. The lungs are underinflated, however there is no focal infiltrate or edema. There are no pleural effusions. There is no pneumothorax. There is no osseous abnormality. IMPRESSION: No acute cardiopulmonary process Left subclavian catheter tip is in the superior vena cava. Reviewed, Interpreted and Dictated by Con Sanchez MD Transcribed by Giulia Babin Authenticated and . [facility]
[2025-05-18 15:55] LABS: POC Glucose,Bedside 94 gm/dL (70-110)
--- NOTE | 2025-05-20 11:14 | EXP.ANES.II ---
[facility] Anesthesia Record Part II Anesthesia Record Part II Discharge Time: 10:15 Destination: Surgical Day Care (OP Surgery) PACU nurse assessment reviewed?: Yes Patient Condition:: Good Anesthesia Complications:: None Swallowing reflex intact?: Yes Airway Patency: Patent Cyanosis?: No Blood Pressure: 137/89 SaO2: 98 Respiratory Rate: 15 Pulse Rate: 73 Temperature: 97 F Mental Status: Alert & Oriented Pain level:: 0 Nausea and/or vomitting:: None Intake, IV Amount: 0 Hydration: Adequate
[2025-05-20 11:15] VITALS: BP 137/89; PULSE 73; RESP 15; TEMP 36.1; O2SAT 98
--- NOTE | 2025-05-20 11:15 | EXP.ANES.I ---
[facility] Anesthesia Record Part I Anesthesia Record I Intake, IV Amount: 900 Hydration: Adequate Estimated blood loss (mL): 5 Urine output (mL): 0 Blood Products used (#): none Blood Pressure: 156/96 SaO2: 94 Pulse Rate: 70 Airway Patency: Patent Respiratory Rate: 16 Temperature: 97 F Patient is:: Drowsy and Stable Stable to PACU at:: 09:45 Comments:: Late Entry
[2025-05-20 11:16] VITALS: BP 156/96; PULSE 70; RESP 16; TEMP 36.1; O2SAT 94
== END 2025-05-17 10:54 | disposition home or self-care (01) ==
PROVIDERS: PCP Family Medicine; Visit Provider Surgery
PROC: (CPT 36561; principal; 2025-05-17 09:05)
DX: C20 Malignant neoplasm of rectum (principal); E78.5 Hyperlipidemia, unspecified; Z90.49 Acquired absence of other specified parts of digestive tract
CPT/HCPCS: 36561; 71045; 76000; 82962; 96374; C1788; J0690; J1100; J1642; J2003; J2250; J2405; J2704; J3010; J7030; J7120

== ENCOUNTER 2025-05-29 09:04 | Outpatient (CLI) | payer OTHER, SELFPAY ==
[2025-05-29] VITALS (12 sets, daily range): BP systolic 106–121; BP diastolic 50–69; PULSE 70–78; RESP 20; TEMP 36.8; O2SAT 99–100; BMI 45.1
[2025-05-29 09:27] LABS: Hematocrit 37.8 % (42.0-52.0); Hemoglobin 12.9 g/dL (14.1-18.0); Immature Granulocytes % 0.9 %; Mean Corpuscular HGB Conc 34.1 g/dL (31.8-35.4); Mean Corpuscular Hemoglobin 28.8 pg (27.0-31.2); Mean Corpuscular Volume 84.4 fl (80-94); Nucleated Red Blood Cells % 0 %; Platelet Count 187 K/mm3 (142-424); Red Blood Count 4.48 M/mm3 (4.60-6.20); Red Cell Distribution Width-SD 46.0 fL; White Blood Count 5.4 K/mm3 (4.8-10.8)
[2025-05-29 09:33] LABS: Albumin Level 4.1 g/dl (3.5-5.0); Chloride 105 mmol/L (98-107); Potassium 4.0 mmoL/L (3.5-5.1); Sodium 140 mmol/L (136-145)
[2025-05-29 09:35] LABS: Blood Urea Nitrogen 11 mg/dl (9-20); Creatinine Clearance Estimated 85 mL/min (50-200); Creatinine,Serum 0.90 mg/dl (0.66-1.25); Estimated Glomerular Filt Rate 88 ml/min (>60); GFR (African American) 106 ML/MIN (>60)
[2025-05-29 09:36] LABS: Alanine Aminotransferase 32 U/L (12-78); Albumin/Globulin Ratio 1.4 (1.1-1.8); Alkaline Phosphatase 77 U/L (38-126); Anion Gap 13.0 mEq/L (5-15); Aspartate Amino Transferase 31 U/L (17-59); Bilirubin,Total 1.2 mg/dl (0.2-1.3); Calcium 8.9 mg/dl (8.4-10.2); Carbon Dioxide 26 mmol/L (22.0-30.0); Globulin 2.9 g/dL (1.3-3.2); Glucose 98 mg/dl (74-100); Total Protein,Serum 7.0 g/dl (6.3-8.2)
[2025-05-29] MEDS: DEXAMETHASONE 4MG TABLET 12 MG (10:20)
[2025-05-29] MEDS: ONDANSETRON 4MG ODT 16 MG (10:20)
[2025-05-29 10:25] LABS: RBC Morphology Normal; Total Cells Counted 100
[2025-05-29] MEDS: DEXTROSE 5 % IN WATER 100 ML 25 ML IV (14:00)
[2025-05-29] MEDS: FLUOROURACIL 500MG/10ML VIAL 910 MG IV (15:59)
== END 2025-05-29 23:59 | disposition home or self-care (01) ==
LOC: INF 09:05
PROVIDERS: PCP Family Medicine; Visit Provider Internal Medicine Medical Oncology
DX: C20 Malignant neoplasm of rectum (principal); Z51.11 Encounter for antineoplastic chemotherapy
CPT/HCPCS: 80053; 85007; 85025; 85027; 96411; 96413; 96415; 96416; 96417; J0640; J7060; J8540; J9190; J9263; Q0162

== ENCOUNTER 2025-05-30 19:16 | Emergency (ER) | payer OTHER, SELFPAY ==
--- OUTSIDE RECORDS SUMMARY | 2025-04-01 12:41 | XMS_ITS | Encounter Summary ---
Author Organization [facility] Address [address] [id number] Care Team Providers Care Dental Front Office Assistant Name Role Phone Km Wooten MD Unavailable [phone] Comfort Siddiqi APRN Primary Care Provider [phone] Encounter Details Date Type Department Care Team (Latest Contact Info) Description 04/01/2025 1:41 PM EDT - 04/01/2025 11:59 PM EDT Hospital Encounter [facility] [address] [id number] [place] [address] Discharge Disposition: Still a Patient Social History [...] with water. Do not crush or cut. fluticasone (Flonase) 50 MCG/ACT nasal spray use 1 spray(s) in each nostril once daily 02/14/2025 cetirizine (ZyrTEC) 10 MG tablet Take 1 tablet by mouth daily. 02/14/2025 5 DOXYCYCLINE MONOHYDRATE PO Take 100 mg by mouth 2 times a day. 5 hydrocortisone (Anusol-HC) 25 MG suppository Insert 1 suppository into the rectum 2 times a day. 5 documented as of this encounter Plan of Treatment Not on file documented as of this encounter Goals Goal [...] documented as of this encounter Care Teams Dental Front Office Assistant Relationship Specialty Start Date End Date Comfort Siddiqi APRN [address] [place] [address] PCP - General 03/12/25 Km Wooten MD 800 [facility] C114D [place] [address] Consulting Physician Radiation Oncology 02/14/25 documented as of this encounter
--- OUTSIDE RECORDS SUMMARY | 2025-04-02 12:58 | XMS_ITS | Encounter Summary ---
Author Organization Healthcare Address [address] [id number] Care Team Providers Care Operating Engineer Name Role Phone Km Wooten MD Unavailable [phone] Comfort Siddiqi APRN Primary Care Provider [phone] Encounter Details Date Type Department Care Team (Latest Contact Info) Description 04/02/2025 1:58 PM EDT - 04/02/2025 11:59 PM EDT Hospital Encounter [facility] Radiation [address] [id number] [place] [address] Discharge Disposition: Still a Patient Social History [...] documented as of this encounter Care Teams Operating Engineer Relationship Specialty Start Date End Date Comfort Siddiqi APRN [address] [place] [address] PCP - General 03/12/25 Km Wooten MD 800 [facility] C114D [place] [address] Consulting Physician Radiation Oncology 02/14/25 documented as of this encounter
--- OUTSIDE RECORDS SUMMARY | 2025-04-03 12:29 | XMS_ITS | Encounter Summary ---
Author Organization Healthcare Address [address] [id number] Care Team Providers Care Security Officer Name Role Phone Km Wooten MD Unavailable [phone] Comfort Siddiqi APRN Primary Care Provider [phone] Encounter Details Date Type Department Care Team (Latest Contact Info) Description 04/03/2025 1:29 PM EDT - 04/03/2025 11:59 PM EDT Hospital Encounter [facility] [address] [id number] [place] [address] Discharge Disposition: Still a Patient Social History [...] documented as of this encounter Care Teams Security Officer Relationship Specialty Start Date End Date Comfort Siddiqi APRN [address] [place] [address] PCP - General 03/12/25 Km Wooten MD 800 [facility] C114D [place] [address] Consulting Physician Radiation Oncology 02/14/25 documented as of this encounter
--- OUTSIDE RECORDS SUMMARY | 2025-04-04 12:47 | XMS_ITS | Encounter Summary ---
Author Organization Healthcare Address [address] [id number] Care Team Providers Care Associate Doctor Name Role Phone Km Wooten MD Unavailable [phone] Comfort Siddiqi APRN Primary Care Provider [phone] Encounter Details Date Type Department Care Team (Latest Contact Info) Description 04/04/2025 1:47 PM EDT - 04/04/2025 1:52 PM EDT Hospital Encounter [facility] [address] [id number] [place] [address] Discharge Disposition: Still a Patient Social History [...] has been complete d for the patient 04/04/2025 2:42 PM EDT A Body Mass Index follow-up plan has been documented for the patient 03/15/2025 11:31 AM EDT documented as of this encounter Care Teams Associate Doctor Relationship Specialty Start Date End Date Comfort Siddiqi APRN [address] [place] [address] PCP - General 03/12/25 Km Wooten MD 800 [facility] C114D [place] [address] Consulting Physician Radiation Oncology 02/14/25 documented as of this encounter
--- OUTSIDE RECORDS SUMMARY | 2025-04-04 12:53 | XMS_ITS | Encounter Summary ---
Author Organization [facility] Address [address] [id number] Care Team Providers Care Food Service Tray Attendant Name Role Phone Km Wooten MD Unavailable [phone] Comfort Siddiqi APRN Primary Care Provider [phone] Reason for Visit * Reason Comments OTV Encounter Details Date Type Department Care Team (Latest Contact Info) Description 04/04/2025 1:53 PM EDT - 04/04/2025 11:59 PM EDT Hospital Encounter [facility] [address] [id number] [place] [address] Nancy Stanley MD [address] [place] [address] Malignant neoplasm of rectum (CMS/HCC) (Primary Dx) [...] day. 5 documented as of this encounter Miscellaneous Notes [...] Tripp is a 55 y.o. male with [id number] lower rectal adenocarcinoma receiving induction chemoradiation Radiation [...] Randolph MD, PGY-3 Resident Physician, Radiation Oncology [facility] Pager: [phone] \ Cosigned by Nancy Stanley MD at 04/05/2025 7:02 AM EDT Associated attestation - Nancy Stanley MD - 04/05/2025 7:02 AM EDT I saw and evaluated the patient with the resident/fellow. I discussed the case with the resident/fellow and agree with the findings and plan as documented. documented in this encounter Plan of Treatment Not on [...] documented as of this encounter Care Teams Food Service Tray Attendant Relationship Specialty Start Date End Date Comfort Siddiqi APRN [address] [place] [address] PCP - General 03/12/25 Km Wooten MD 800 [facility] C114D [place] [address] Consulting Physician Radiation Oncology 02/14/25 documented as of this encounter
--- OUTSIDE RECORDS SUMMARY | 2025-04-05 13:06 | XMS_ITS | Encounter Summary ---
Author Organization Healthcare Address [address] [id number] Care Team Providers Care Weasand Trimmer Name Role Phone Km Wooten MD Unavailable [phone] Comfort Siddiqi APRN Primary Care Provider [phone] Encounter Details Date Type Department Care Team (Latest Contact Info) Description 04/05/2025 2:06 PM EDT - 04/05/2025 11:59 PM EDT Hospital Encounter [facility] [address] [id number] [place] [address] Discharge Disposition: Still a Patient Social History [...] documented as of this encounter Care Teams Weasand Trimmer Relationship Specialty Start Date End Date Comfort Siddiqi APRN [address] [place] [address] PCP - General 03/12/25 Km Wooten MD 800 [facility] C114D [place] [address] Consulting Physician Radiation Oncology 02/14/25 documented as of this encounter
--- OUTSIDE RECORDS SUMMARY | 2025-04-08 04:30 | XMS_ITS | Encounter Summary ---
Author Organization Healthcare Address [address] [id number] Care Team Providers Care Nurse First Assist Name Role Phone Km Wooten MD Unavailable [phone] Comfort Siddiqi APRN Primary Care Provider [phone] Encounter Details Date Type Department Care Team (Latest Contact Info) Description 04/08/2025 5:30 AM EDT - 04/08/2025 1:37 PM EDT Hospital Encounter [facility] [address] [id number] [place] [address] Discharge Disposition: Still a Patient Social History [...] documented as of this encounter Care Teams Nurse First Assist Relationship Specialty Start Date End Date Comfort Siddiqi APRN [address] [place] [address] PCP - General 03/12/25 Km Wooten MD 800 [facility] C114D [place] [address] Consulting Physician Radiation Oncology 02/14/25 documented as of this encounter
--- OUTSIDE RECORDS SUMMARY | 2025-04-08 12:38 | XMS_ITS | Encounter Summary ---
Author Organization Healthcare Address [address] [id number] Care Team Providers Care Textile Machine Mechanic Name Role Phone Km Wooten MD Unavailable [phone] Comfort Siddiqi APRN Primary Care Provider [phone] Encounter Details Date Type Department Care Team (Latest Contact Info) Description 04/08/2025 1:38 PM EDT - 04/08/2025 11:59 PM EDT Hospital Encounter [facility] [address] [id number] [place] [address] Discharge Disposition: Still a Patient Social History [...] documented as of this encounter Care Teams Textile Machine Mechanic Relationship Specialty Start Date End Date Comfort Siddiqi APRN [address] [place] [address] PCP - General 03/12/25 Km Wooten MD 800 [facility] C114D [place] [address] Consulting Physician Radiation Oncology 02/14/25 documented as of this encounter
--- OUTSIDE RECORDS SUMMARY | 2025-04-09 12:45 | XMS_ITS | Encounter Summary ---
Author Organization Healthcare Address [address] [id number] Care Team Providers Care Aircraft Lay Out Worker Name Role Phone Km Wooten MD Unavailable [phone] Comfort Siddiqi APRN Primary Care Provider [phone] Encounter Details Date Type Department Care Team (Latest Contact Info) Description 04/09/2025 1:45 PM EDT - 04/09/2025 11:59 PM EDT Hospital Encounter [facility] [address] [id number] [place] [address] Discharge Disposition: Still a Patient Social History [...] as of this encounter Care Teams Aircraft Lay Out Worker Relationship Specialty Start Date End Date Comfort Siddiqi APRN [address] [place] [address] PCP - General 03/12/25 Km Wooten MD 800 [facility] [address] [place] [address] Consulting Physician Radiation Oncology 02/14/25 documented as of this encounter
--- OUTSIDE RECORDS SUMMARY | 2025-04-10 12:31 | XMS_ITS | Encounter Summary ---
Author Organization [facility] Address [address] [id number] Care Team Providers Care Entertainment Centre Manager Name Role Phone Km Wooten MD Unavailable [phone] Comfort Siddiqi APRN Primary Care Provider [phone] Encounter Details Date Type Department Care Team (Latest Contact Info) Description 04/10/2025 1:31 PM EDT - 04/10/2025 11:59 PM EDT Hospital Encounter [facility] CC Radiation [address] VV027V [place] [address] Discharge Disposition: Still a Patient Social History [...] documented as of this encounter Care Teams Entertainment Centre Manager Relationship Specialty Start Date End Date Comfort Siddiqi APRN [address] [place] [address] PCP - General 03/12/25 Km Wooten MD 800 [facility] C114D [place] [address] Consulting Physician Radiation Oncology 02/14/25 documented as of this encounter
--- OUTSIDE RECORDS SUMMARY | 2025-04-11 12:50 | XMS_ITS | Encounter Summary ---
Author Organization [facility] Address [address] [id number] Care Team Providers Care Reception Centre Manager Name Role Phone Km Wooten MD Unavailable [phone] Comfort Siddiqi APRN Primary Care Provider [phone] Reason for Visit * Reason Comments OTV Encounter Details Date Type Department Care Team (Latest Contact Info) Description 04/11/2025 1:50 PM EDT - 04/11/2025 11:59 PM EDT Hospital Encounter [facility] [address] [id number] [place] [address] Km Wooten MD [address] [place] [phone] Malignant neoplasm of rectum (CMS/HCC) (Primary Dx) [...] Tripp is a 55 y.o. male with [id number] lower rectal adenocarcinoma receiving induction chemoradiation Radiation [...] Randolph MD, PGY-3 Resident Physician, Radiation Oncology [facility] Pager: [phone] Cosigned by Km Wooten MD at 04/11/2025 [...] documented as of this encounter Care Teams Reception Centre Manager Relationship Specialty Start Date End Date Comfort Siddiqi APRN [address] [place] [address] PCP - General 03/12/25 Km Wooten MD [address] [place], [place] [id number] [place] [address] Consulting Physician Radiation Oncology 02/14/25 documented as of this encounter
--- OUTSIDE RECORDS SUMMARY | 2025-04-12 12:42 | XMS_ITS | Encounter Summary ---
Author Organization [facility] Address [address] [id number] Care Team Providers Care Casual Shoe Inspector Name Role Phone Km Wooten MD Unavailable [phone] Comfort Siddiqi APRN Primary Care Provider [phone] Encounter Details Date Type Department Care Team (Latest Contact Info) Description 04/12/2025 1:42 PM EDT - 04/12/2025 11:59 PM EDT Hospital Encounter [facility] [address] [id number] [place] [address] Discharge Disposition: Still a Patient Social History [...] documented as of this encounter Care Teams Casual Shoe Inspector Relationship Specialty Start Date End Date Comfort Siddiqi APRN [address] [place] [address] PCP - General 03/12/25 Km Wooten MD 800 [facility] C114D [place] [address] Consulting Physician Radiation Oncology 02/14/25 documented as of this encounter
--- OUTSIDE RECORDS SUMMARY | 2025-04-15 07:33 | XMS_ITS | Encounter Summary ---
Author Organization Healthcare Address [address] [id number] Care Team Providers Care Heating Element Repairer Name Role Phone Km Wooten MD Unavailable [phone] Comfort Siddiqi APRN Primary Care Provider [phone] Encounter Details Date Type Department Care Team (Latest Contact Info) Description 04/15/2025 8:33 AM EDT - 04/15/2025 1:26 PM EDT Hospital Encounter [facility] [address] QT[address]S [place] [address] Discharge Disposition: Still a Patient Social History [...] documented as of this encounter Care Teams Heating Element Repairer Relationship Specialty Start Date End Date Comfort Siddiqi APRN [address] [place] [address] PCP - General 03/12/25 Km Wooten MD 800 [facility] C[address] [place] [address] Consulting Physician Radiation Oncology 02/14/25 documented as of this encounter
--- OUTSIDE RECORDS SUMMARY | 2025-04-15 12:27 | XMS_ITS | Encounter Summary ---
Author Organization Healthcare Address [address] [id number] Care Team Providers Care Ornamental Painter Name Role Phone Km Wooten MD Unavailable [phone] Comfort Siddiqi APRN Primary Care Provider [phone] Encounter Details Date Type Department Care Team (Latest Contact Info) Description 04/15/2025 1:27 PM EDT - 04/15/2025 11:59 PM EDT Hospital Encounter [facility] [address] [id number] [place] [address] Discharge Disposition: Still a Patient Social History [...] documented as of this encounter Care Teams Ornamental Painter Relationship Specialty Start Date End Date Comfort Siddiqi APRN [address] [place] [address] PCP - General 03/12/25 Km Wooten MD 800 [facility] C114D [place] [address] Consulting Physician Radiation Oncology 02/14/25 documented as of this encounter
--- OUTSIDE RECORDS SUMMARY | 2025-04-16 12:28 | XMS_ITS | Encounter Summary ---
Author Organization Healthcare Address [address] [id number] Care Team Providers Care Manager Leadership Development Name Role Phone Km Wooten MD Unavailable [phone] Comfort Siddiqi APRN Primary Care Provider [phone] Encounter Details Date Type Department Care Team (Latest Contact Info) Description 04/16/2025 1:28 PM EDT - 04/16/2025 11:59 PM EDT Hospital Encounter [facility] [address] [id number] [place] [address] Discharge Disposition: Still a Patient Social History [...] as of this encounter Care Teams Manager Leadership Development Relationship Specialty Start Date End Date Comfort Siddiqi APRN [address] [place] [address] PCP - General 03/12/25 Km Wooten MD 800 [facility] C114D [place] [address] Consulting Physician Radiation Oncology 02/14/25 documented as of this encounter
--- OUTSIDE RECORDS SUMMARY | 2025-04-17 12:52 | XMS_ITS | Encounter Summary ---
Author Organization Healthcare Address [address] [id number] Care Team Providers Care Solar Sales Ambassador Name Role Phone Km Wooten MD Unavailable [phone] Comfort Siddiqi APRN Primary Care Provider [phone] Encounter Details Date Type Department Care Team (Latest Contact Info) Description 04/17/2025 1:52 PM EDT - 04/17/2025 11:59 PM EDT Hospital Encounter [facility] [address] [id number] [place] [address] Discharge Disposition: Still a Patient Social History [...] documented as of this encounter Care Teams Solar Sales Ambassador Relationship Specialty Start Date End Date Comfort Siddiqi APRN [address] [place] [address] PCP - General 03/12/25 Km Wooten MD 800 [facility] C114D [place] [address] Consulting Physician Radiation Oncology 02/14/25 documented as of this encounter
--- OUTSIDE RECORDS SUMMARY | 2025-04-18 12:36 | XMS_ITS | Encounter Summary ---
Author Organization [facility] Address [address] [id number] Care Team Providers Care Match Maker Name Role Phone Km Wooten MD Unavailable [phone] Comfort Siddiqi APRN Primary Care Provider [phone] Encounter Details Date Type Department Care Team (Latest Contact Info) Description 04/18/2025 1:36 PM EDT - 04/18/2025 2:02 PM EDT Hospital Encounter [facility] [address] [id number] [place] [address] Discharge Disposition: Still a Patient Social History [...] documented as of this encounter Care Teams Match Maker Relationship Specialty Start Date End Date Comfort Siddiqi APRN [address] [place] [address] PCP - General 03/12/25 Km Wooten MD 800 [facility] C114D [place] [address] Consulting Physician Radiation Oncology 02/14/25 documented as of this encounter
--- OUTSIDE RECORDS SUMMARY | 2025-04-18 13:03 | XMS_ITS | Encounter Summary ---
Author Organization [facility] Address [address] [place] [id number] Care Team Providers Care Datastage Developer Name Role Phone Km Wooten MD Unavailable [phone] Comfort Siddiqi APRN Primary Care Provider [phone] Reason for Visit * Reason Comments OTV Encounter Details Date Type Department Care Team (Latest Contact Info) Description 04/18/2025 2:03 PM EDT - 04/18/2025 11:59 PM EDT Hospital Encounter [facility] Radiation [address] [id number] [place] [address] Km Wooten MD [address] [place] [address] Malignant neoplasm of rectum (CMS/HCC) (Primary Dx) [...] : 1970 Date: 04/18/2025 REFERRING PHYSICIAN: Con Smuner MD DIAGNOSIS: (lower) Rectal Adenocarcinoma Cancer Staging Malignant neoplasm of rectum (CMS/HCC) Staging form: Colon and Rectum, AJCC 8th Edition - Clinical: Stage IIIB (cT3, cN2a, cM0) - Unsigned HPI: Carlos Tripp is a 55 y.o. male with [id number] lower rectal adenocarcinoma receiving induction chemoradiation Radiation [...] Randolph MD, PGY-3 Resident Physician, Radiation Oncology [facility] Pager: [phone] Cosigned by Km Wooten MD at 04/18/2025 [...] documented as of this encounter Care Teams Datastage Developer Relationship Specialty Start Date End Date Comfort Siddiqi APRN [address] [place] [address] PCP - General 03/12/25 Km Wooten MD [address] [place], [place] 310084D [place] [address] Consulting Physician Radiation Oncology 02/14/25 documented as of this encounter
--- OUTSIDE RECORDS SUMMARY | 2025-04-19 12:42 | XMS_ITS | Encounter Summary ---
Author Organization Healthcare Address [address] [id number] Care Team Providers Care Sausage Inspector Name Role Phone Km Wooten MD Unavailable [phone] Comfort Siddiqi APRN Primary Care Provider [phone] Encounter Details Date Type Department Care Team (Latest Contact Info) Description 04/19/2025 1:42 PM EDT - 04/19/2025 11:59 PM EDT Hospital Encounter [facility] [address] [id number] [place] [address] Discharge Disposition: Still a Patient Social History [...] documented as of this encounter Care Teams Sausage Inspector Relationship Specialty Start Date End Date Comfort Siddiqi APRN [address] [place] [address] PCP - General 03/12/25 Km Wooten MD 800 [facility] [address] [place] [address] Consulting Physician Radiation Oncology 02/14/25 documented as of this encounter
--- OUTSIDE RECORDS SUMMARY | 2025-04-22 07:10 | XMS_ITS | Encounter Summary ---
Author Organization Healthcare Address [address] [id number] Care Team Providers Care Senior Instructional Designer Name Role Phone Km Wooten MD Unavailable [phone] Comfort Siddiqi APRN Primary Care Provider [phone] Encounter Details Date Type Department Care Team (Latest Contact Info) Description 04/22/2025 8:10 AM EDT - 04/22/2025 1:39 PM EDT Hospital Encounter [facility] [address] [id number] [place] [address] Discharge Disposition: Still a Patient Social History [...] as of this encounter Care Teams Senior Instructional Designer Relationship Specialty Start Date End Date Comfort Siddiqi APRN [address] [place] [address] PCP - General 03/12/25 Km Wooten MD 800 [facility] [address] [place] [address] Consulting Physician Radiation Oncology 02/14/25 documented as of this encounter
--- OUTSIDE RECORDS SUMMARY | 2025-04-22 12:40 | XMS_ITS | Encounter Summary ---
Author Organization Healthcare Address [address] [id number] Care Team Providers Care Ammunition Components Inspector Name Role Phone Km Wooten MD Unavailable [phone] Comfort Siddiqi APRN Primary Care Provider [phone] Encounter Details Date Type Department Care Team (Latest Contact Info) Description 04/22/2025 1:40 PM EDT - 04/22/2025 11:59 PM EDT Hospital Encounter [facility] [address] [id number] [place] [address] Discharge Disposition: Still a Patient Social History [...] documented as of this encounter Care Teams Ammunition Components Inspector Relationship Specialty Start Date End Date Comfort Siddiqi APRN [address] [place] [address] PCP - General 03/12/25 Km Wooten MD 800 [facility] [address] [place] [address] Consulting Physician Radiation Oncology 02/14/25 documented as of this encounter
--- OUTSIDE RECORDS SUMMARY | 2025-04-23 12:48 | XMS_ITS | Encounter Summary ---
Author Organization Healthcare Address [address] [id number] Care Team Providers Care Riveter Helper Name Role Phone Km Wooten MD Unavailable [phone] Comfort Siddiqi APRN Primary Care Provider [phone] Encounter Details Date Type Department Care Team (Latest Contact Info) Description 04/23/2025 1:48 PM EDT - 04/23/2025 11:59 PM EDT Hospital Encounter [facility] Rad[facility] [address] [id number] [place] [address] Discharge Disposition: Still a Patient Social History [...] documented as of this encounter Care Teams Riveter Helper Relationship Specialty Start Date End Date Comfort Siddiqi APRN [address] [place] [address] PCP - General 03/12/25 Km Wooten MD 800 [facility] [address] [place] [address] Consulting Physician Radiation Oncology 02/14/25 documented as of this encounter
--- OUTSIDE RECORDS SUMMARY | 2025-04-24 12:41 | XMS_ITS | Encounter Summary ---
Author Organization Healthcare Address [address] [id number] Care Team Providers Care Engineering Consultant Name Role Phone Km Wooten MD Unavailable [phone] Comfort Siddiqi APRN Primary Care Provider [phone] Encounter Details Date Type Department Care Team (Latest Contact Info) Description 04/24/2025 1:41 PM EDT - 04/24/2025 11:59 PM EDT Hospital Encounter [facility] [address] [id number] [place] [address] Discharge Disposition: Still a Patient Social History [...] documented as of this encounter Care Teams Engineering Consultant Relationship Specialty Start Date End Date Comfort Siddiqi APRN [address] [place] [address] PCP - General 03/12/25 Km Wooten MD 800 [facility] [address] [place] [address] Consulting Physician Radiation Oncology 02/14/25 documented as of this encounter
--- OUTSIDE RECORDS SUMMARY | 2025-04-29 08:39 | XMS_ITS | Encounter Summary ---
Author Organization Healthcare Address [address] [id number] Care Team Providers Care Supervisor Coffee Name Role Phone Km Wooten MD Unavailable [phone] Comfort Siddiqi APRN Primary Care Provider [phone] Encounter Details Date Type Department Care Team (Latest Contact Info) Description 04/29/2025 8:39 AM EST - 04/29/2025 11:59 PM [facility] Hospital Encounter PAV CC Radiation [address] [id number] [place] [address] Discharge Disposition: Still a Patient Social History [...] as of this encounter Care Teams Supervisor Coffee Relationship Specialty Start Date End Date Comfort Siddiqi APRN [address] [place] [address] PCP - General 03/12/25 Km Wooten MD 800 [facility] C[address] [place] [address] Consulting Physician Radiation Oncology 02/14/25 documented as of this encounter
--- OUTSIDE RECORDS SUMMARY | 2025-05-27 13:28 | XMS_ITS | Encounter Summary ---
Author Organization [facility] Address [address] [id number] Care Team Providers Care Steam Conditioning Operator Name Role Phone Km Wooten MD Unavailable [phone] Comfort Siddiqi APRN Primary Care Provider [phone] Reason for Visit * Reason Comments Follow-up Encounter Details Date Type Department Care Team (Latest Contact Info) Description 05/27/2025 1:28 PM EST Hospital Encounter [facility] Radiation [id number] [place] [address] Marci Gonzalez APRN [address] [place] [address] Malignant neoplasm of rectum (CMS/HCC) (Primary Dx) [...] Notes * Progress Notes - Marci Gonzalez, INTERIOR ASSEMBLIES INSTALLER - 05/27/2025 2:20 PM EST [facility] RADIATION MEDICINE RADIATION ONCOLOGY INTERIOR ASSEMBLIES INSTALLER FOLLOW UP NOTE Carlos Tripp is a [...] lower rectum adenoca, Stage III cT3 cN2a [id number] 02/05/25, now one month status post neoadjuvant [...] with Dr. Kaleb Bill Medical Oncology at [facility] in [place]. Review of Systems Constitutional: Negative for activity [...] regarding follow-up care. Marci Gonzalez RN, MSN, RADIO BOARD OPERATOR-C, Nurse Practitioner Radiation Oncology [1] Social History [...] as of this encounter Care Teams Steam Conditioning Operator Relationship Specialty Start Date End Date Comfort Siddiqi APRN [address] [place] [address] PCP - General 03/12/25 Km Wooten MD [address] [place] [address] [address] [place] [address] Consulting Physician Radiation Oncology 02/14/25 documented as of this encounter
[2025-05-30 19:34] VITALS: BP 125/70; PULSE 87; RESP 16; TEMP 36.8; O2SAT 95; BMI 34.8
--- OUTSIDE RECORDS SUMMARY | 2025-05-30 19:40 | XMS_ITS | Encounter Summary ---
Author Organization [facility] Address [address] [place] [address] Care Team Providers Care Receiving Clerk Name Role Phone Km Wooten MD Unavailable [phone] Comfort Siddiqi APRN Primary Care Provider [phone] Encounter Details Date Type Department Care Team (Late st Contact Info) Description 04/22/2025 Orders Only [facility] Radiation [id number] [place] [address] Radiation Oncology, Physician, [address] [place], [place] [id number] Social History Tobacco Use Types Packs/Day Years [...] ONCOLOGY Reference Point Dosage Given to Date [id number] 0001 Gy ARIA RADIATION ONCOLOGY Reference Point Session Dosage Given [id number] Gy ARIA RADIATION ONCOLOGY Plan ID [id number] [...] documented as of this encounter Care Teams Receiving Clerk Relationship Specialty Start Date End Date Comfort SiddiqiTARUN [address] [place] [address] PCP - General 03/12/25 Km Wooten MD [address] [phone] Consulting Physician Radiation Oncology 02/14/25 documented as of this encounter
[2025-05-30 19:41] VITALS: BP 125/70; PULSE 87; RESP 16; TEMP 36.8; O2SAT 95
--- OUTSIDE RECORDS SUMMARY | 2025-05-30 19:42 | XMS_ITS | Encounter Summary ---
Author Organization [facility] Address [address] [place] [address] Care Team Providers Care Caption Writer Name Role Phone Km Wooten MD Unavailable [phone] Comfort Siddiqi APRN Primary Care Provider [phone] Encounter Details Date Type Department Care Team (Late st Contact Info) Description 04/19/2025 Orders Only [facility] Radiation [id number] [place] [address] Radiation Oncology, Physician, [address] [place], [place] [id number] Social History Tobacco Use Types Packs/Day Years [...] ONCOLOGY Reference Point Dosage Given to Date [id number] Gy ARIA RADIATION ONCOLOGY Reference Point Session Dosage Given [id number] Gy ARIA RADIATION ONCOLOGY Plan ID [id number] [...] documented as of this encounter Care Teams Caption Writer Relationship Specialty Start Date End Date Comfort SiddiqiTARUN [address] [place] [address] PCP - General 03/12/25 Km Wooten MD [id number] [place] [address] Consulting Physician Radiation Oncology 02/14/25 documented as of this encounter
--- OUTSIDE RECORDS SUMMARY | 2025-05-30 19:42 | XMS_ITS | Encounter Summary ---
Author Organization [facility] Address [address] [id number] Care Team Providers Care Puppet Developer Name Role Phone Km Wooten MD Unavailable [phone] Comfort Siddiqi APRN Primary Care Provider [phone] Encounter Details Date Type Department Care Team [...] documented as of this encounter Care Teams Puppet Developer Relationship Specialty Start Date End Date Comfort Siddiqi APRN [address] [place] [address] PCP - General 03/12/25 Km Wooten MD [address] [place], [place] [address] [place] [address] Consulting Physician Radiation Oncology 02/14/25 documented as of this encounter
--- OUTSIDE RECORDS SUMMARY | 2025-05-30 19:42 | XMS_ITS | Encounter Summary ---
Author Organization [facility] Address [address] [place] [address] Care Team Providers Care Hair Boiler Operator Name Role Phone Km Wooten MD Unavailable [phone] Comfort Siddiqi APRN Primary Care Provider [phone] Encounter Details Date Type Department Care Team (Late st Contact Info) Description 04/23/2025 Orders Only [facility] Radiation [id number] [place] [address] Radiation Oncology, Physician, [address] [place], [place] [id number] Social History Tobacco Use Types Packs/Day Years [...] ONCOLOGY Reference Point Dosage Given to Date [id number] 0001 Gy ARIA RADIATION ONCOLOGY Reference Point Session Dosage Given [id number] Gy ARIA RADIATION ONCOLOGY Plan ID [id number] [...] documented as of this encounter Care Teams Hair Boiler Operator Relationship Specialty Start Date End Date Comfort SiddiqiTARUN [address] [place] [address] PCP - General 03/12/25 Km Wooten MD [address] [phone] Consulting Physician Radiation Oncology 02/14/25 documented as of this encounter
--- OUTSIDE RECORDS SUMMARY | 2025-05-30 19:43 | XMS_ITS | Encounter Summary ---
Author Organization [facility] Address [address] [place] [address] Care Team Providers Care Electric Truck Driver Name Role Phone Km Wooten MD Unavailable [phone] Comfort Siddiqi APRN Primary Care Provider [phone] Encounter Details Date Type Department Care Team (Late st Contact Info) Description 04/24/2025 Orders Only [facility] Radiation [address] [place] [address] Radiation Oncology, Physician, [address] [place], [place] [id number] Social History Tobacco Use Types Packs/Day Years [...] ONCOLOGY Reference Point Dosage Given to Date [id number] 0001 Gy ARIA RADIATION ONCOLOGY Reference Point Session Dosage Given [id number] Gy ARIA RADIATION ONCOLOGY Plan ID [id number] [...] 04/24/2025 2:28 PM EDT Physician Radiation Oncology MD RADIATION [...] documented as of this encounter Care Teams Electric Truck Driver Relationship Specialty Start Date End Date Comfort SiddiqiTARUN [address] [place] [address] PCP - General 03/12/25 Km Wooten MD [address] [phone] Consulting Physician Radiation Oncology 02/14/25 documented as of this encounter
--- OUTSIDE RECORDS SUMMARY | 2025-05-30 19:43 | XMS_ITS | Encounter Summary ---
Author Organization Healthcare Address [address] [place] [address] Care Team Providers Care Earthmoving Labourer Name Role Phone Km Wooten MD Unavailable [phone] Comfort Siddiqi APRN Primary Care Provider [phone] Encounter Details Date Type Department Care Team (Late st Contact Info) Description 04/18/2025 Orders Only [facility] [id number] [place] [address] Radiation Oncology, Physician, [address] [place], [place] [address] Social History Tobacco Use Types Packs/Day Years [...] ONCOLOGY Reference Point Dosage Given to Date 41.20477409 Gy ARIA RADIATION ONCOLOGY Reference Point Session Dosage Given 1.38152606 Gy ARIA RADIATION ONCOLOGY Plan ID [id number] [...] documented as of this encounter Care Teams Earthmoving Labourer Relationship Specialty Start Date End Date Comfort SiddiqiTARUN [address] [place] [address] PCP - General 03/12/25 Km Wooten MD [id number] [place] [address] Consulting Physician Radiation Oncology 02/14/25 documented as of this encounter
--- OUTSIDE RECORDS SUMMARY | 2025-05-30 19:44 | XMS_ITS | Encounter Summary ---
Author Organization Healthcare Address [address] [place] [address] Care Team Providers Care Facility Service Associate Name Role Phone Km Wooten MD Unavailable [phone] Comfort Siddiqi APRN Primary Care Provider [phone] Encounter Details Date Type Department Care Team (Late st Contact Info) Description 04/12/2025 Orders Only [facility] Radiation [address] [id number] [place] [address] Radiation Oncology, Physician, [address] [place], [place] [address] Social History Tobacco Use Types Packs/Day Years [...] ONCOLOGY Reference Point Dosage Given to Date 33.55182438 Gy ARIA RADIATION ONCOLOGY Reference Point Session Dosage Given 1.56968245 Gy ARIA RADIATION ONCOLOGY Plan ID [id number] [...] documented as of this encounter Care Teams Facility Service Associate Relationship Specialty Start Date End Date Comfort SiddiqiTARUN [address] [place] [address] PCP - General 03/12/25 Km Wooten MD [id number] [place] [address] Consulting Physician Radiation Oncology 02/14/25 documented as of this encounter
--- OUTSIDE RECORDS SUMMARY | 2025-05-30 19:44 | XMS_ITS | Encounter Summary ---
Author Organization [facility] Address [address] [id number] Care Team Providers Care Manager Utilization Review Name Role Phone Km Wooten MD Unavailable [phone] Comfort Siddiqi APRN Primary Care Provider [phone] Encounter Details Date Type Department Care Team (Latest Contact Info) Description 05/20/2025 Travel Social History Tobacco Use Types Packs/Day [...] as of this encounter Care Teams Manager Utilization Review Relationship Specialty Start Date End Date Comfort Siddiqi APRN [address] [place] [address] PCP - General 03/12/25 Km Wooten MD [address] [place], [place] [address]D [place] [address] Consulting Physician Radiation Oncology 02/14/25 documented as of this encounter
--- OUTSIDE RECORDS SUMMARY | 2025-05-30 19:44 | XMS_ITS | Encounter Summary ---
Author Organization [facility] Address [id number] Care Team Providers Care Oiler Helper Name Role Phone Km Wooten MD Unavailable [phone] Comfort Siddiqi APRN Primary Care Provider [phone] Encounter Details Date Type Department Care Team (Latest Contact Info) Description 05/27/2025 Travel Social History Tobacco Use Types Packs/Day [...] documented as of this encounter Care Teams Oiler Helper Relationship Specialty Start Date End Date Comfort Siddiqi APRN [address] [place] [address] PCP - General 03/12/25 Km Wooten MD [address] [place] [address] Consulting Physician Radiation Oncology 02/14/25 documented as of this encounter
--- OUTSIDE RECORDS SUMMARY | 2025-05-30 19:44 | XMS_ITS | Encounter Summary ---
Author Organization Healthcare Address [address] [place] [address] Care Team Providers Care Highway Painter Helper Name Role Phone Km Wooten MD Unavailable [phone] Comfort Siddiqi APRN Primary Care Provider [phone] Encounter Details Date Type Department Care Team (Late st Contact Info) Description 04/10/2025 Orders Only [facility] Radiation [id number] [place] [address] Radiation Oncology, Physician, [address] [place], [place] [address] Social History Tobacco Use Types Packs/Day Years [...] ONCOLOGY Reference Point Dosage Given to Date 29.25211517 Gy ARIA RADIATION ONCOLOGY Reference Point Session Dosage Given 1.99038794 Gy ARIA RADIATION ONCOLOGY Plan ID [id number] [...] documented as of this encounter Care Teams Highway Painter Helper Relationship Specialty Start Date End Date Comfort SiddiqiTARUN [address] [place] [address] PCP - General 03/12/25 Km Wooten MD [id number] [place] [address] Consulting Physician Radiation Oncology 02/14/25 documented as of this encounter
--- NOTE | 2025-05-30 19:46 | ED_ITS ---
<Statement entered by Tabby Maciel DO - 05/30/25 21:53> I was consulted by the MILLIE, and we discussed the complexity of problems being addressed. I approved the treatment plan and management plan of this patient's care in the emergency department, thus performing a substantive portion of medical decision making. Tabby Maciel DO Discharge Plan Disposition Patient Disposition: Home, Self-Care Prescriptions Prescriptions: No Action atorvastatin 20 mg tablet 20 mg PO DAILY Patient Comments: TAKE 1 TABLET BY MOUTH ONCE DAILY loperamide 2 mg capsule 2 mg PO Q2H PRN (Reason: diarrhea) Qty: 30 2RF Rx Instructions: TAKE 1 CAPSULE BY MOUTH EVERY 2 HOURS NEEDED FOR DIARRHEA; DO NOT EXCEED 16MG (8 CAPS) IN 24 HOURS prochlorperazine maleate [Compazine] 10 mg tablet 10 mg PO Q6H PRN (Reason: nausea and vomiting) Qty: 30 2RF ondansetron 8 mg tablet,disintegrating 8 mg PO Q8H Qty: 30 2RF Rx Instructions: TAKE 1 TAB (8MG) BY MOUTH DAYS 2 AND 3 AFTER CHEMO; TAKE 1 TAB BY MOUTH 8 HOURS NEEDED FOR NAUSEA AND VOMITING Referrals Follow up/Referrals: Comfort Siddiqi APRN [Primary Care Provider, Family Practice] - See instructions Activity Restrictions/Add. Instructions Additional Instructions/Restrictions: Thank you for allowing us to care for you today. Please continue to follow-up with your PCP and oncology teams as scheduled. Return to the ER if you have any worsening symptoms. Clinical Impressions Clinical Impression: Encounter for care related to Port-a-Cath Print Language Print Language: Vietnamese Discharge ED Provider: Tabby Maicel General Adult HPI General Chief complaint: Skin/Abscess/Foreign Body Stated complaint: power port needle came out Time Seen by Provider: 05/30/25 19:45 Mode of Arrival: Ambulatory Source of Information: Patient Description of Symptoms (Recalled from ER Triage Doc. by RN): Pt to ED with need for new power port placement. Pt is currently receiving a 48-hour chemotherapy infusion and his port needle accidentally came out. Pt has no complaints. History of Present Illness HPI narrative: This is a 55-year-old male with a history of rectal carcinoma stage IIIB (cT3b, cN2a) with recent completion of chemoradiotherapy on April 24 who is now has a left subclavian Port-A-Cath in place for planned 4 months of FOLFOX chemotherapy to complete total neoadjuvant therapy (LACHELLE). Today at work patient noticed his Port-A-Cath seemed to be out of place. When he got home and cleaned up he notic ed the needle was completely out and his infusion was still running. He has not had any other issues and was just evaluated in oncology clinic yesterday for initiation of this infusion. He denies any other complaints at this time. Related Data Home Medications ?Medication ?Instructions ?Recorded ?Confirmed atorvastatin 20 mg tablet 20 mg PO DAILY 05/01/2509/18 Previous Rx's ?Medication ?Instructions ?Recorded loperamide 2 mg capsule 2 mg PO Q2H PRN diarrhea #30 caps 05/30/25 ondansetron 8 mg disintegrating 8 mg PO Q8H #30 tabs 1 07/31/24 tablet prochlorperazine maleate 10 mg 10 mg PO Q6H PRN nausea and 05/30/25 tablet (Compazine) vomiting #30 tabs Allergies Allergy/AdvReac Type Severity Reaction Status Date / Time No Known Allergies Allergy Verified 05/29/25 09:41 [facility] Disclaimer: The information contained in this section may have been updated after the patient was seen, as this information can be updated by other users. 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 Dog bite Wound of abdomen Need for tetanus, diphtheria, and acellular pertussis (Tdap) vaccine Sinusitis Strep throat Encounter for removal of sutures Rectal cancer Hyperlipidemia Surgical History Hx of cholecystectomy Family History Mother H/O heart surgery Father H/O heart surgery Grandfather Diabetes Social History Smoking Status: Unknown if ever smoked alcohol intake: never substance use type: denies use current occupational status: employed Travel in the last 8 weeks?: None Have you lived/traveled outside US in past 30 days?: No Contact w/someone who lives/traveled outside US past 30 days?: No Exposure to someone with infectious disease in past 14 days?: No Do you have a fever (greater than 100.4 F or 38 C)?: No Have you tested positive for COVID-19?: No Exposed to someone with COVID-19 in past 14 days?: No Do you have a sore throat?: No Do you have a cough?: No Do you have any weakness?: No Do you have any diarrhea?: No Are you experiencing any unusual bleeding?: No Do you have any muscle aches/pain?: No Do you have any abdominal pain?: No Are you experiencing loss of taste or smell?: No Other 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 Have you received the Pneumonia Vaccine: No ROS Obtained: Yes Systems reviewed as appropriate & no additional complaints except as documented Physical Exam General General appearance: alert and in no apparent distress Comment: Well-appearing, no acute distress. Sitting comfortably on hospital chair. Head Head exam: atraumatic and normocephalic Neck Neck exam: Present full ROM Chest Chest inspection: Present other (Left subclavian Port-a-Cath out of position with needle completely exposed) Respiratory Respiratory exam: Present normal lung sounds bilaterally; Absent respiratory distress Cardiovascular Cardiovascular exam: Present regular rate and normal rhythm Abdominal Exam Abdominal exam: Present soft; Absent distention or tenderness Neurological Exam Neurological exam: Present alert and oriented X3 Medical Decision Making Medical Records Screening: Per USPSTF and CDC recommendations, given the prevalence of disease in our region, it is our hospital?s policy to screen for HIV and viral Hepatitis for all patients aged 18 and over and those with ongoing risk factors. Georgi Inquiry Pt receiving controlled substance: No Vital Signs: 05/30/25 19:34 05/30/25 19:41 Temperature 98.3 F 98.3 F Temperature Source Oral Oral Pulse Rate 87 Pulse Rate [Left Radial] 87 Respiratory Rate 16 16 Blood Pressure 125/70 Blood Pressure [Right Arm] 125/70 Blood Pressure Mean [Right Arm] 88 Blood Pressure Source Automatic Cuff Blood Pressure Source [Right Arm] Automatic Cuff Blood Pressure Position Sitting Blood Pressure Position [Right Arm] Sitting 02 Sat by Pulse Oximetry 95 Oxygen Delivery Method Room Air Room Air Medical Decision Narrative: In summary, this is a 55-year-old male with a history of rectal carcinoma stage IIIB (cT3b, cN2a) with recent completion of chemoradiotherapy on April 24 who is now has a left subclavian Port-A-Cath in place for planned 4 months of FOLFOX chemotherapy to complete total neoadjuvant therapy (LACHELLE). He presented to the emergency department today for evaluation of his Port-A-Cath as it was incidentally pulled out of place at work today. Patient denies any other complaints at this time. On exam the patient is well-appearing and in no acute distress. Sitting comfortably on hospital chair. The left subclavian Port-a-Cath is out of proper positioning with needle completely exposed. ED nursing team performed sterile procedure and sterilely replaced the Port-A-Cath. They also cleaned the skin extensively as some chemotherapy had trickled onto some of the skin though most was within the Tegaderm. Patient remains well-appearing and is appropriate for safe discharge home. No indication for additional emergent workup or intervention at this time. He will continue to follow-up with his PCP and oncology teams as previously scheduled. Critical Care Critical Care Time Critical Care Time: No
--- OUTSIDE RECORDS SUMMARY | 2025-05-30 19:47 | XMS_ITS | Encounter Summary ---
Author Organization Healthcare Address [address] [place] [address] Care Team Providers Care Manager Of School Name Role Phone Km Wooten MD Unavailable [phone] Comfort Siddiqi APRN Primary Care Provider [phone] Encounter Details Date Type Department Care Team (Late st Contact Info) Description 04/01/2025 Orders Only [facility] Radiation [id number] [place] [address] Radiation Oncology, Physician, [address] [place], [place] [address] Social History Tobacco Use Types Packs/Day Years [...] ONCOLOGY Reference Point Dosage Given to Date 15.05347154 Gy ARIA RADIATION ONCOLOGY Reference Point Session Dosage Given 1.36149141 Gy ARIA RADIATION ONCOLOGY Plan ID [email or web address] [...] of this encounter Care Teams Manager Of School Relationship Specialty Start Date End Date Comfort SiddiqiTARUN [address] [place] [address] PCP - General 03/12/25 Km Wooten MD [id number] [place] [address] Consulting Physician Radiation Oncology 02/14/25 documented as of this encounter
--- OUTSIDE RECORDS SUMMARY | 2025-05-30 19:47 | XMS_ITS | Encounter Summary ---
Author Organization [facility] Address [address] [place] [address] Care Team Providers Care Math Specialist Name Role Phone Tejal Saeed APRN Primary Care Provider [phone] Km Wooten MD Unavailable [phone] Comfort Siddiqi APRN Primary Care Provider [phone] Encounter Details Date Type Department Care Team (Late st Contact Info) Description 01/08/2025 Orders Only External Location [address] [place] [address] Provider, External Social History Tobacco Use Types Packs/Day Years Used Date Smoking Tobacco: Never Assessed Sex and Gender Information Value Date Recorded Sex Assigned at Not on file Legal Sex Male 6:14 PM EDT Gender Identity Not on file Sexual Orientation Not on file documented as of this encounter Plan of Treatment Not on file documented as of this encounter Procedures Procedure [...] on filedocumented in this encounter Care Teams Math Specialist Relationship Specialty Start Date End Date Tejal Saeed APRN [address] [place] [address] PCP - General 11/07/20 03/11/25 Comfort Siddiqi APRN [address] [place] [address] PCP - General 03/12/25 Km Wooten MD [address] [address] Consulting Physician Radiation Oncology 02/14/25 documented as of this encounter
--- OUTSIDE RECORDS SUMMARY | 2025-05-30 19:47 | XMS_ITS | Encounter Summary ---
Author Organization Healthcare Address [address] [place] [address] Care Team Providers Care Petroleum Refinery Worker Name Role Phone Km Wooten MD Unavailable [phone] Comfort Siddiqi APRN Primary Care Provider [phone] Encounter Details Date Type Department Care Team (Late st Contact Info) Description 04/11/2025 Orders Only [facility] Radiation [id number] [place] [address] Radiation Oncology, Physician, [address] [place], [place] [address] Social History Tobacco Use Types Packs/Day Years [...] ONCOLOGY Reference Point Dosage Given to Date 31.95564108 Gy ARIA RADIATION ONCOLOGY Reference Point Session Dosage Given 1.88741544 Gy ARIA RADIATION ONCOLOGY Plan ID [id number] [...] documented as of this encounter Care Teams Petroleum Refinery Worker Relationship Specialty Start Date End Date Comfort SiddiqiTARUN [address] [place] [address] PCP - General 03/12/25 Km Wooten MD [id number] [place] [address] Consulting Physician Radiation Oncology 02/14/25 documented as of this encounter
--- OUTSIDE RECORDS SUMMARY | 2025-05-30 19:47 | XMS_ITS | Encounter Summary ---
Author Organization Healthcare Address [address] [place] [address] Care Team Providers Care Crew Caller Name Role Phone Km Wooten MD Unavailable [phone] Comfort Siddiqi APRN Primary Care Provider [phone] Encounter Details Date Type Department Care Team (Late st Contact Info) Description 04/02/2025 Orders Only [facility] Radiation [id number] [place] [address] Radiation Oncology, Physician, [address] [place], [place] [address] Social History Tobacco Use Types Packs/Day Years [...] ONCOLOGY Reference Point Dosage Given to Date 17.38500687 Gy ARIA RADIATION ONCOLOGY Reference Point Session Dosage Given 1.99720210 Gy ARIA RADIATION ONCOLOGY Plan ID [id number] [...] as of this encounter Care Teams Crew Caller Relationship Specialty Start Date End Date Comfort SiddiqiTARUN [address] [place] [address] PCP - General 03/12/25 Km Wooten MD [id number] [place] [address] Consulting Physician Radiation Oncology 02/14/25 documented as of this encounter
--- OUTSIDE RECORDS SUMMARY | 2025-05-30 19:47 | XMS_ITS | Encounter Summary ---
Author Organization [facility] Address [address] [place] [address] Care Team Providers Care J2Ee Developer Name Role Phone Tejal Saeed APRN Primary Care Provider [phone] Km Wooten MD Unavailable [phone] Comfort Siddiqi APRN Primary Care Provider [phone] Encounter Details Date Type Department Care Team (Late st Contact Info) Description 01/08/2025 Orders Only External Location [address] [place] [address] Provider, External Social History Tobacco Use Types [...] on filedocumented in this encounter Care Teams J2Ee Developer Relationship Specialty Start Date End Date Tejal Saeed APRN [address] [place] [address] PCP - General 11/07/20 03/11/25 Comfort Siddiqi APRN [address] [place] [address] PCP - General 03/12/25 Km Wooten MD [address] [facility] [address] [address] Consulting Physician Radiation Oncology 02/14/25 documented as of this encounter
--- OUTSIDE RECORDS SUMMARY | 2025-05-30 19:53 | XMS_ITS | Encounter Summary ---
Author Organization Healthcare Address [address] [place] [address] Care Team Providers Care Outside Sales Account Manager Name Role Phone Km Wooten MD Unavailable [phone] Comfort Siddiqi APRN Primary Care Provider [phone] Encounter Details Date Type Department Care Team (Late st Contact Info) Description 04/15/2025 Orders Only [facility] Radiation [id number] [place] [address] Radiation Oncology, Physician, [address] [place], [place] [address] Social History Tobacco Use Types Packs/Day Years [...] ONCOLOGY Reference Point Dosage Given to Date 35.46862003 Gy ARIA RADIATION ONCOLOGY Reference Point Session Dosage Given 1.61247101 Gy ARIA RADIATION ONCOLOGY Plan ID [id number] [...] documented as of this encounter Care Teams Outside Sales Account Manager Relationship Specialty Start Date End Date Comfort SiddiqiTARNU [address] [place] [address] PCP - General 03/12/25 Km Wooten MD [address] [place] [address] Consulting Physician Radiation Oncology 02/14/25 documented as of this encounter
--- OUTSIDE RECORDS SUMMARY | 2025-05-30 19:53 | XMS_ITS | Encounter Summary ---
Author Organization Healthcare Address [address] [place] [address] Care Team Providers Care Mental Health Worker Name Role Phone Km Wooten MD Unavailable [phone] Comfort Siddiqi APRN Primary Care Provider [phone] Encounter Details Date Type Department Care Team (Late st Contact Info) Description 04/16/2025 Orders Only [facility] Radiation [id number] [place] [address] Radiation Oncology, Physician, [address] [place], [place] [address] Social History Tobacco Use Types Packs/Day Years [...] ONCOLOGY Reference Point Dosage Given to Date 37.17851258 Gy ARIA RADIATION ONCOLOGY Reference Point Session Dosage Given 1.01131519 Gy ARIA RADIATION ONCOLOGY Plan ID [id number] [...] documented as of this encounter Care Teams Mental Health Worker Relationship Specialty Start Date End Date Comfort SiddiqiTARUN [address] [place] [address] PCP - General 03/12/25 Km Wooten MD [address] [place] [address] Consulting Physician Radiation Oncology 02/14/25 documented as of this encounter
--- OUTSIDE RECORDS SUMMARY | 2025-05-30 19:53 | XMS_ITS | Encounter Summary ---
Author Organization Healthcare Address [address] [place] [address] Care Team Providers Care Building Equipment Operator Name Role Phone Km Wooten MD Unavailable [phone] Comfort Siddiqi APRN Primary Care Provider [phone] Encounter Details Date Type Department Care Team (Late st Contact Info) Description 04/17/2025 Orders Only [facility] Radiation [id number] [place] [address] Radiation Oncology, Physician, [address] [place], [place] [address] Social History Tobacco Use Types Packs/Day Years [...] ONCOLOGY Reference Point Dosage Given to Date 39.6644267 Gy ARIA RADIATION ONCOLOGY Reference Point Session Dosage Given 1.29478897 Gy ARIA RADIATION ONCOLOGY Plan ID [id number] [...] as of this encounter Care Teams Building Equipment Operator Relationship Specialty Start Date End Date Comfort SiddiqiTARUN [address] [place] [address] PCP - General 03/12/25 Km Wooten MD [id number] [place] [address] Consulting Physician Radiation Oncology 02/14/25 documented as of this encounter
--- OUTSIDE RECORDS SUMMARY | 2025-05-30 19:53 | XMS_ITS | Encounter Summary ---
Author Organization [facility] Address [id number] Care Team Providers Care Supervisor Motorcycle Repair Shop Name Role Phone Km Wooten MD Unavailable [phone] Comfort Siddiqi APRN Primary Care Provider [phone] Encounter Details Date Type Department Care Team [...] as of this encounter Care Teams Supervisor Motorcycle Repair Shop Relationship Specialty Start Date End Date Comfort Siddiqi APRN [address] [place] [address] PCP - General 03/12/25 Km Wooten MD [address] [place], [place] [address]D [place] [address] Consulting Physician Radiation Oncology 02/14/25 documented as of this encounter
--- OUTSIDE RECORDS SUMMARY | 2025-05-30 19:53 | XMS_ITS | Encounter Summary ---
Author Organization [facility] Address [address] [place] [address] Care Team Providers Care Avionics Safety Inspector Name Role Phone Tejal Saeed APRN Primary Care Provider [phone] Km Wooten MD Unavailable [phone] Comfort Siddiqi APRN Primary Care Provider [phone] Encounter Details Date Type Department Care Team (Late st Contact Info) Description 01/08/2025 Orders Only External Location [address] [place] [address] Provider, External Social History Tobacco Use Types [...] on filedocumented in this encounter Care Teams Avionics Safety Inspector Relationship Specialty Start Date End Date Tejal Saeed APRN [address] [place] [address] PCP - General 11/07/20 03/11/25 Comfort Siddiqi APRN [address] [place] [address] PCP - General 03/12/25 Km Wooten MD 800 [facility] [address] [place] [address] Consulting Physician Radiation Oncology 02/14/25 documented as of this encounter
--- OUTSIDE RECORDS SUMMARY | 2025-05-30 19:54 | XMS_ITS | Clinical Summary ---
Author Organization [facility] Address [address] [place] [address] Care Team Providers Care Flow Trader Name Role Phone Km Wooten MD Unavailable [phone] Comfort Siddiqi APRN Primary Care Provider [phone] Allergies No known active allergies Medications atorvastatin (Lipitor) 20 MG tablet Take 1 tablet by mouth daily. 01/12/20 25 Active fluticasone (Flonase) 50 MCG/ACT nasal spray use 1 spray(s) in each nostril once daily 02/15/20 25 Active capecitabine (Xeloda) 500 MG chemo tablet Take 4 tablets (2,000 mg total) by mouth 2 times a day. Swallow whole with water. Do not crush or cut. Active DOXYCYCLINE MONOHYDRATE PO Take 100 mg by mouth 2 times a day. 025 Discontinu ed(Per Patient Report) hydrocortisone (Anusol-HC) 25 MG suppository Insert 1 suppository into the rectum 2 times a day. Discontinu ed(Per Patient Report) cetirizine (ZyrTEC) 10 MG tablet Take 1 tablet by mouth daily. 02/15/20 25 025 Discontinu ed(Per Patient Report) Active Problems Problem Noted Date Diagnosed Date Class III obesity with body mass index (BMI) of 40.0 or higher 03/21/2025 Malignant neoplasm of rectum 2025 Cancer Staging:Clinical:Stage IIIB(cT3, cN2a, cM0) - Unsigned Encounters Date Type Department Care Team Description 05/27/2025 1:28 PM EST Hospital Encounter [facility] [address] [phone] Marci Gonzalez, TARUN Malignant neoplasm of rectum (CMS/HCC) (Primary Dx) 05/27/2025 Travel 05/20/2025 Travel 04/29/2025 8:39 AM EST - 04/29/2025 11:59 PM EST Hospital Encounter [facility] [address] [phone] Discharge Disposition: Still a Patient 04/29/2025 Travel 04/26/2025 Orders Only [facility] [address] [phone] Radiation Oncology, PhysicianMD 04/26/2025 Orders Only [facility] [address] [phone] Radiation Oncology, PhysicianMD 04/24/2025 1:41 PM EDT - 04/24/2025 11:59 PM EDT Hospital Encounter [facility] [address] [phone] Discharge Disposition: Still a Patient 04/24/2025 Orders Only [facility] [address] [address] Radiation Oncology, PhysicianMD 04/23/2025 1:48 PM EDT - 04/23/2025 11:59 PM EDT Hospital Encounter [facility] [address] [address] Discharge Disposition: Still a Patient 04/23/2025 Orders Only [facility] [address] [phone] Radiation Oncology, PhysicianMD 04/22/2025 1:40 PM EDT - 04/22/2025 11:59 PM EDT Hospital Encounter [facility] [address] [phone] Discharge Disposition: Still a Patient 04/22/2025 8:10 AM EDT - 04/22/2025 1:39 PM EDT Hospital Encounter [facility] [address] [phone] Discharge Disposition: Still a Patient 04/22/2025 Orders Only [facility] [address] [phone] Radiation Oncology, PhysicianMD 04/22/2025 Travel 04/19/2025 1:42 PM EDT - 04/19/2025 11:59 PM EDT Hospital Encounter [facility] [address] [phone] Discharge Disposition: Still a Patient 04/19/2025 Orders Only [facility] [address] [phone] Radiation Oncology, PhysicianMD 04/18/2025 2:03 PM EDT - 04/18/2025 11:59 PM EDT Hospital Encounter [facility] [address] [phone] Km Wooten MD Malignant neoplasm of rectum (CMS/HCC) (Primary Dx) Discharge Disposition: Still a Patient 04/18/2025 1:36 PM EDT - 04/18/2025 2:02 PM EDT Hospital Encounter [facility] [address] [phone] Discharge Disposition: Still a Patient 04/18/2025 Orders Only [facility] [address] [phone] Radiation Oncology, PhysicianMD 04/17/2025 1:52 PM EDT - 04/17/2025 11:59 PM EDT Hospital Encounter [facility] [address] [phone] Discharge Disposition: Still a Patient 04/17/2025 Orders Only [facility] [address] [phone] Radiation Oncology, PhysicianMD 04/16/2025 1:28 PM EDT - 04/16/2025 11:59 PM EDT Hospital Encounter [facility] [address] [phone] Discharge Disposition: Still a Patient 04/16/2025 Orders Only [facility] [address] [phone] Radiation Oncology, PhysicianMD 04/15/2025 1:27 PM EDT - 04/15/2025 11:59 PM EDT Hospital Encounter [facility] [address] [phone] Discharge Disposition: Still a Patient 04/15/2025 8:33 AM EDT - 04/15/2025 1:26 PM EDT Hospital Encounter [facility] [address] [phone] Discharge Disposition: Still a Patient 04/15/2025 Orders Only [facility] [address] [phone] Radiation Oncology, PhysicianMD 04/15/2025 Travel 04/12/2025 1:42 PM EDT - 04/12/2025 11:59 PM EDT Hospital Encounter [facility] [address] [phone] Discharge Disposition: Still a Patient 04/12/2025 Orders Only [facility] [address] [phone] Radiation Oncology, PhysicianMD 04/11/2025 1:50 PM EDT - 04/11/2025 11:59 PM EDT Hospital Encounter [facility] [address] [phone] Km Wooten MD Malignant neoplasm of rectum (CMS/HCC) (Primary Dx) Discharge Disposition: Still a Patient 04/11/2025 1:31 PM EDT - 04/11/2025 1:49 PM EDT Hospital Encounter [facility] [address] [phone] Discharge Disposition: Still a Patient 04/11/2025 Orders Only [facility] [address] [phone] Radiation Oncology, PhysicianMD 04/10/2025 1:31 PM EDT - 04/10/2025 11:59 PM EDT Hospital Encounter [facility] [address] [phone] Discharge Disposition: Still a Patient 04/10/2025 Orders Only [facility] [address] [phone] Radiation Oncology, PhysicianMD 04/09/2025 1:45 PM EDT - 04/09/2025 11:59 PM EDT Hospital Encounter [facility] [address] [phone] Discharge Disposition: Still a Patient 04/09/2025 Orders Only [facility] [address] [phone] Radiation Oncology, PhysicianMD 04/08/2025 1:38 PM EDT - 04/08/2025 11:59 PM EDT Hospital Encounter [facility] [address] [phone] Discharge Disposition: Still a Patient 04/08/2025 5:30 AM EDT - 04/08/2025 1:37 PM EDT Hospital Encounter [facility] [address] [phone] Discharge Disposition: Still a Patient 04/08/2025 Orders Only [facility] [address] [address] Radiation Oncology, PhysicianMD 04/08/2025 Travel 04/05/2025 2:06 PM EDT - 04/05/2025 11:59 PM EDT Hospital Encounter [facility] [address] [phone] Discharge Disposition: Still a Patient 04/05/2025 Orders Only [facility] [address] [phone] Radiation Oncology, PhysicianMD 04/04/2025 1:53 PM EDT - 04/04/2025 11:59 PM EDT Hospital Encounter [facility] [address] [phone] Nancy Stanley MD Malignant neoplasm of rectum (CMS/HCC) (Primary Dx) Discharge Disposition: Still a Patient 04/04/2025 1:47 PM EDT - 04/04/2025 1:52 PM EDT Hospital Encounter [facility] [address] [phone] Discharge Disposition: Still a Patient 04/04/2025 Orders Only [facility] [address] [place] [address] Radiation Oncology, PhysicianMD 04/03/2025 1:29 PM EDT - 04/03/2025 11:59 PM EDT Hospital Encounter [facility] [address] [phone] Discharge Disposition: Still a Patient 04/03/2025 Orders Only [facility] [address] [phone] Radiation Oncology, PhysicianMD 04/02/2025 1:58 PM EDT - 04/02/2025 11:59 PM EDT Hospital Encounter [facility] [address] [phone] Discharge Disposition: Still a Patient 04/02/2025 Orders Only [facility] [address] [phone] Radiation Oncology, PhysicianMD 04/01/2025 1:41 PM EDT - 04/01/2025 11:59 PM EDT Hospital Encounter [facility] [address] [phone] Discharge Disposition: Still a Patient 04/01/2025 5:30 AM EDT - 04/01/2025 1:40 PM EDT Hospital Encounter [facility] [address] [phone] Discharge Disposition: Still a Patient 04/01/2025 Orders Only [facility] [address] [phone] Radiation Oncology, PhysicianMD 04/01/2025 Travel 03/29/2025 1:25 PM EDT - 03/29/2025 11:59 PM EDT Hospital Encounter [facility] [address] [phone] Discharge Disposition: Still a Patient 03/29/2025 Orders Only [facility] [address] [phone] Radiation Oncology, PhysicianMD 03/28/2025 1:54 PM EDT - 03/28/2025 11:59 PM EDT Hospital Encounter [facility] [address] [phone] Km Wooten MD Malignant neoplasm of rectum (CMS/HCC) (Primary Dx) Discharge Disposition: Still a Patient 03/28/2025 1:37 PM EDT - 03/28/2025 1:53 PM EDT Hospital Encounter [facility] [address] [phone] Discharge Disposition: Still a Patient 03/28/2025 Orders Only [facility] [address] [phone] Radiation Oncology, PhysicianMD 03/27/2025 1:38 PM EDT - 03/27/2025 11:59 PM EDT Hospital Encounter [facility] [address] [phone] Discharge Disposition: Still a Patient 03/27/2025 Orders Only [facility] [address] [phone] Radiation Oncology, PhysicianMD 03/26/2025 1:30 PM EDT - 03/26/2025 11:59 PM EDT Hospital Encounter [facility] [address] [phone] Discharge Disposition: Still a Patient 03/26/2025 Orders Only [facility] [address] [phone] Radiation Oncology, PhysicianMD 03/25/2025 1:35 PM EDT - 03/25/2025 11:59 PM EDT Hospital Encounter [facility] [address] [phone] Discharge Disposition: Still a Patient 03/25/2025 5:30 AM EDT - 03/25/2025 1:34 PM EDT Hospital Encounter [facility] [address] [phone] Discharge Disposition: Still a Patient 03/25/2025 Orders Only [facility] [address] [address] Radiation Oncology, Physician, 03/25/2025 Travel 03/22/2025 1:49 PM EDT - 03/22/2025 11:59 PM EDT Hospital Encounter [facility] [address] [phone] Discharge Disposition: Still a Patient 03/22/2025 Orders Only [facility] [address] [phone] Radiation Oncology, Physician, 03/21/2025 2:12 PM EDT - 03/21/2025 11:59 PM EDT Hospital Encounter [facility] [address] [phone] Km Wooten MD Malignant neoplasm of rectum (CMS/HCC) (Primary Dx) Discharge Disposition: Still a Patient 03/21/2025 1:48 PM EDT - 03/21/2025 2:11 PM EDT Hospital Encounter [facility] [address] [phone] Km Wooten MD Discharge Disposition: Still a Patient 03/21/2025 Travel 03/21/2025 Orders Only [facility] [address] [address] Radiation Oncology, Physician, 03/20/2025 Travel 03/18/2025 8:34 AM EDT - 03/18/2025 11:59 PM EDT Hospital Encounter [facility] [address] [phone] Discharge Disposition: Still a Patient 03/18/2025 Travel 03/15/2025 9:00 AM EDT Office Visit [facility] Res[facility] [address] [place] [phone] Deepak Haider MD Malignant neoplasm of rectum (CMS/HCC) (Primary Dx) 03/15/2025 Travel 03/12/2025 10:12 AM EDT Anesthesia Event [facility] [address] [place] [address] Shaun Hanley MD 03/12/2025 9:12 AM EDT - 03/12/2025 11:59 PM EDT Hospital Encounter [facility] [address] [place] [address] Eric Tellez MD Lung nodule Discharge Disposition: Home or Self Care 03/12/2025 Travel 03/11/2025 5:00 PM EDT - 03/11/2025 11:59 PM EDT Hospital Encounter [facility] [address] [address] Discharge Disposition: Still a Patient 03/11/2025 Travel 03/04/2025 8:42 AM EDT - 03/04/2025 11:59 PM EDT Hospital Encounter [facility] [address] [address] Discharge Disposition: Still a Patient 03/04/2025 Travel 03/01/2025 8:40 AM EDT - 03/01/2025 11:59 PM EDT Hospital Encounter [facility] [address] [address] Km Wooten MD Discharge Disposition: Still a Patient 02/28/2025 3:30 PM EDT Office Visit [facility] Head[facility] Neck [facility] Respiratory 800 [facility], [address] [place] [address] Eric Tellez MD Adenopathy (Primary Dx) 02/28/2025 Travel from Last 3 Months Family History [...] Pulse 89 05/27/2025 1:37 PM EST Temperature 36.8 C (98.2 F) 04/18/2025 2:26 PM EDT Respiratory Rate 16 05/27/2025 1:37 PM EST Oxygen Saturation 96% 05/27/2025 1:37 PM EST Inhaled Oxygen Concentration - - Weight 129 kg (283 lb 15.2 oz) 05/27/2025 1:37 P M EST Height 167.6 cm (5' 6 ) 03/12/2025 9:47 AM EDT Body Mass Index 45.83 03/12/2025 9:47 AM EDT Plan of Treatment Health Maintenance Due Date Last Done Comments [...] 02/20/2016 Sigmoidoscopy 02/20/2016 [facility]-Colorectal Cancer Screening 02/20/2016 [id number] Vaccine ( season) 2025 06/24/2021, 11/08/2020, 10/11/2020 [...] ANESTHESIA PLACEHOLDER Routine 03/12/2025 10:22 AM EDT IN AN ELECTIVE ENDOTRACHEAL AIRWAY Routine 03/12/2025 10:22 [...] ONCOLOGY Reference Point Dosage Given to Date [phone] 0001 Gy ARIA RADIATION ONCOLOGY Plan ID [...] ONCOLOGY Reference Point Dosage Given to Date 49.636554151 0001 Gy ARIA RADIATION ONCOLOGY Reference Point Session Dosage Given 1.28562111 Gy ARIA RADIATION ONCOLOGY Plan ID [id number] [...] ONCOLOGY Reference Point Dosage Given to Date 47.388895733 0001 Gy ARIA RADIATION ONCOLOGY Reference Point Session Dosage Given 1.85641413 Gy ARIA RADIATION ONCOLOGY Plan ID [id number] [...] ONCOLOGY Reference Point Dosage Given to Date 45.135616977 0001 Gy ARIA RADIATION ONCOLOGY Reference Point Session Dosage Given 1.67396503 Gy ARIA RADIATION ONCOLOGY Plan ID [id number] [...] ONCOLOGY Reference Point Dosage Given to Date 43.87482117 Gy ARIA RADIATION ONCOLOGY Reference Point Session Dosage Given 1.30001550 Gy ARIA RADIATION ONCOLOGY Plan ID [id number] [...] ONCOLOGY Reference Point Dosage Given to Date 41.22867064 Gy ARIA RADIATION ONCOLOGY Reference Point Session Dosage Given 1.07859982 Gy ARIA RADIATION ONCOLOGY Plan ID [id number] [...] ONCOLOGY Reference Point Dosage Given to Date 39.0661494 Gy ARIA RADIATION ONCOLOGY Reference Point Session Dosage Given 1.77045089 Gy ARIA RADIATION ONCOLOGY Plan ID [id number] [...] ONCOLOGY Reference Point Dosage Given to Date 37.68478384 Gy ARIA RADIATION ONCOLOGY Reference Point Session Dosage Given 1.68953013 Gy ARIA RADIATION ONCOLOGY Plan ID [id number] [...] ONCOLOGY Reference Point Dosage Given to Date 35.06821066 Gy ARIA RADIATION ONCOLOGY Reference Point Session Dosage Given 1.07928594 Gy ARIA RADIATION ONCOLOGY Plan ID [id number] [...] ONCOLOGY Reference Point Dosage Given to Date 33.53361725 Gy ARIA RADIATION ONCOLOGY Reference Point Session Dosage Given 1.23243750 Gy ARIA RADIATION ONCOLOGY Plan ID [id number] [...] ONCOLOGY Reference Point Dosage Given to Date 31.17681262 Gy ARIA RADIATION ONCOLOGY Reference Point Session Dosage Given 1.09276415 Gy ARIA RADIATION ONCOLOGY Plan ID [id number] [...] ONCOLOGY Reference Point Dosage Given to Date 29.12470296 Gy ARIA RADIATION ONCOLOGY Reference Point Session Dosage Given 1.17436720 Gy ARIA RADIATION ONCOLOGY Plan ID [id number] [...] ONCOLOGY Reference Point Dosage Given to Date 27.80246409 Gy ARIA RADIATION ONCOLOGY Reference Point Session Dosage Given 1.52523793 Gy ARIA RADIATION ONCOLOGY Plan ID [id number] [...] ONCOLOGY Reference Point Dosage Given to Date 25.27331031 Gy ARIA RADIATION ONCOLOGY Reference Point Session Dosage Given 1.52435786 Gy ARIA RADIATION ONCOLOGY Plan ID [id number] [...] ONCOLOGY Reference Point Dosage Given to Date 23.43536240 Gy ARIA RADIATION ONCOLOGY Reference Point Session Dosage Given 1.38463559 Gy ARIA RADIATION ONCOLOGY Plan ID [id number] [...] ONCOLOGY Reference Point Dosage Given to Date 21.20999582 Gy ARIA RADIATION ONCOLOGY Reference Point Session Dosage Given 1.77918540 Gy ARIA RADIATION ONCOLOGY Plan ID [id number] [...] ONCOLOGY Reference Point Dosage Given to Date 19.5191105 Gy ARIA RADIATION ONCOLOGY Reference Point Session Dosage Given 1.96985080 Gy ARIA RADIATION ONCOLOGY Plan ID [id number] [...] 1:41 PM EDT Physician Radiation Oncology RADIATION ONCLUZ [...] ONCOLOGY Reference Point Dosage Given to Date 17.33423225 Gy ARIA RADIATION ONCOLOGY Reference Point Session Dosage Given 1.14095956 Gy ARIA RADIATION ONCOLOGY Plan ID [id number] [...] ONCOLOGY Reference Point Dosage Given to Date 15.40180489 Gy ARIA RADIATION ONCOLOGY Reference Point Session Dosage Given 1.07222098 Gy ARIA RADIATION ONCOLOGY Plan ID [id number] [...] ONCOLOGY Reference Point Dosage Given to Date 13.47668387 Gy ARIA RADIATION ONCOLOGY Reference Point Session Dosage Given 1.08940074 Gy ARIA RADIATION ONCOLOGY Plan ID [id number] [...] ONCOLOGY Reference Point Dosage Given to Date 11.12108145 Gy ARIA RADIATION ONCOLOGY Reference Point Session Dosage Given 1.84468918 Gy ARIA RADIATION ONCOLOGY Plan ID [id number] [...] ONCOLOGY Reference Point Dosage Given to Date 9.22064704 Gy ARIA RADIATION ONCOLOGY Reference Point Session Dosage Given 1.05972105 Gy ARIA RADIATION ONCOLOGY Plan ID [id number] [...] ONCOLOGY Reference Point Dosage Given to Date 7.56235869 Gy ARIA RADIATION ONCOLOGY Reference Point Session Dosage Given 1.70001650 Gy ARIA RADIATION ONCOLOGY Plan ID [id number] [...] ONCOLOGY Reference Point Dosage Given to Date 5.63312005 Gy ARIA RADIATION ONCOLOGY Reference Point Session Dosage Given 1.78002506 Gy ARIA RADIATION ONCOLOGY Plan ID [id number] [...] ONCOLOGY Reference Point Dosage Given to Date 3.73987428 Gy ARIA RADIATION ONCOLOGY Reference Point Session Dosage Given 1.44115822 Gy ARIA RADIATION ONCOLOGY Plan ID [id number] [...] ONCOLOGY Reference Point Dosage Given to Date 1.64398000 Gy ARIA RADIATION ONCOLOGY Reference Point Session Dosage Given 1.59378902 Gy ARIA RADIATION ONCOLOGY Plan ID [id number] [...] RADIATION ONCOLO GY ORDERABLES Final Result [facility] RADIATION ONCOLOGY * Fungal Culture, Tissue and PARMINDER (03/12/2025 12:37 PM EDT) Culture Reading Mycological 4 Weeks No Fungal Growth at 4 Weeks 04/09/2025 6:43 AM EDT [facility] PARMINDER No fungal elements seen 04/09/2025 6:43 AM EDT [facility] Fine Needle Aspirate Structure of lymph node / Unknown Non-blood Collection / Unknown 03/12/2025 12:37 PM EDT 03/12/2025 12:46 PM EDT Eric Tellez MD LAB MICROBIOLOGY - GENERAL OR DERABLES Final Result [facility] [address] [place] [address] * AFB Culture, Non Respiratory Source and Acid Fast Stain (03/12/2025 12:37 PM EDT) AFB Culture No Mycobacterial Growth at 6 Weeks 04/24/2025 4:02 PM EDT [facility] Acid Fast Stain No acid fast bacilli seen 04/24/2025 4:02 PM EDT [facility] Fine Needle Aspirate Structure of lymph node / Unknown Non-blood Collection / Unknown 03/12/2025 12:37 PM EDT 03/12/2025 12:46 PM EDT Eric Tellez MD LAB MICROBIOLOGY - GENERAL OR DERABLES Final Result Performing Organization Address [facility] Co de Phone Number [facility] [address] [place] [address] * Tissue Culture and Gram Stain (03/12/2025 [...] OR DERABLES Final Result Performing Organization Address [facility] de Phone Number [facility] [address] [place] [address] * (ABNORMAL) Anaerobic Culture (03/12/2025 12:37 PM EDT) Culture No anaerobes isolated 03/16/2025 4:33 PM EDT [facility] Culture Streptococcus mitis/oralis group(A) 03/16/2025 4:33 PM EDT [facility] Comment: This isolate has been identified using the FDA Approved [employer]DI [employer] System The organism value for this [...] MICROBIOLOGY - GENERAL OR DERABLES Final Result [facility] [address] [place] [address] * Bronchoscopy w EBUS (03/12/2025 11:25 AM [...] Nodes observed under convex ultrasound guidance. Onsite test desk supervisor was present and cytology results were preliminarily [...] Mccoy, RN Endo Nurse Carmen Zelaya Endo Social Security Assessor Palma Marin CRNA BREAK AND LOAD OPERATOR Eric Tellez MD Proceduralist Shaun Hanley MD Anesthesiologist Impression Overall Impression: Normal endobronchial exam The three lymph nodes sampled today on [address] were benign Post Procedure Diagnosis None Recommendation Follow-up: with referring provider Attestation I was present for the entire procedure Billing Codes See procedure report details above. 18829 - EBUS convex prove 1 or 2 lesions GC - Service has been performed in part by a resident/fellow under the direction of a teaching physician us Eric Tellez MD GI PROCEDURE ORDERABLES Final Result * Fine needle aspiration (03/12/2025 10:43 AM EDT) Case Report Cytology Case: [id number] Authorizing Provider: Eric Tellez MD Collected: 03/12/2025 1043 Ordering Location: [facility] H Endoscopy Received: 03/12/2025 1129 Pathologist: [...] FINE NEEDLE ASPIRATION 5 12:59 PM EDT [facility] HEMODILUTE LYMPHOID TISSUE. 5 12:59 PM EDT [facility] at 1259 EDT Comment The possibility of rare poorly-formed granulomas is not excluded, especially in the station 7 lymph node sample. For this reason, GMS and AFB stains are performed. These are negative for organisms. 12:59 PM EDT [facility] Special and Immunohistochemical Stains Special Stain: A1-2 Acid Fast Bacteria A1-3 GMS IHC: There are no tasks to display for the given criteria. All controls show appropriate reactivity. All immunohistochemis try, in situ hybridization, and histochemical tests were developed by and are performed at the [facility], [address] [place] [address]. All tests reported here, except those addressing [...] Time: 1h 31m 5 12:59 PM EDT [facility] Note: A resident was involved in the service. I attest I examined the relevant preparations for the specimens and confirmed the diagnosis or interpretation. 5 12:59 PM EDT [facility] [...] CYTOLOGY ORDERABLES Final Result Performing Organization Address City/State/[facility] Phone Number [facility] [address] [place] [address] * IN AN ELECTIVE ENDOTRACHEAL AIRWAY, PB ANESTHESIA PLACEHOLDER (03/12/2025 10:22 AM EDT) Narrative Palma Marin CRNA - 03/12/2025 10:22 AM EDT Palma Marin CRNA 03/12/2025 10:32 AM Airway Date/Time: 03/12/2025 10:22 AM Reason: elective Airway not difficult General Information and Staff Patient location during procedure: OR BREAK AND LOAD OPERATOR: Palma Marin CRNA Performed: BREAK AND LOAD OPERATOR Patient Condition Indications for airway management: [...] Date Autogenerated Problem 02/28/2025 Insurance Care Teams Flow Trader Relationship Specialty Start Date End Date Comfort Siddiqi APRN [address] [place] [address] PCP - General 03/12/25 Km Wooten MD [address] [place] [phone] Consulting Physician Radiation Oncology 02/14/25
--- OUTSIDE RECORDS SUMMARY | 2025-05-30 19:54 | XMS_ITS | Encounter Summary ---
Author Organization Healthcare Address [address] [place] [address] Care Team Providers Care Division Operations Manager Name Role Phone Km Wooten MD Unavailable [phone] Comfort Siddiqi APRN Primary Care Provider [phone] Encounter Details Date Type Department Care Team (Late st Contact Info) Description 04/26/2025 Orders Only [facility] Radiation [id number] [place] [address] Radiation Oncology, Physician, [address] [place], [place] [address] Social History Tobacco Use Types Packs/Day Years [...] ONCOLOGY Reference Point Dosage Given to Date [id number] 0001 Gy ARIA RADIATION ONCOLOGY Plan ID [...] documented as of this encounter Care Teams Division Operations Manager Relationship Specialty Start Date End Date DevangComfort carrionTARUN [address] [place] [address] PCP - General 03/12/25 Km Wooten MD [address] [address] Consulting Physician Radiation Oncology 02/14/25 documented as of this encounter
--- OUTSIDE RECORDS SUMMARY | 2025-05-30 19:54 | XMS_ITS | Encounter Summary ---
Author Organization Healthcare Address [address] [place] [address] Care Team Providers Care Rn Geriatric Name Role Phone Km Wooten MD Unavailable [phone] oCmfort Siddiqi APRN Primary Care Provider [phone] Encounter Details Date Type Department Care Team (Late st Contact Info) Description 04/03/2025 Orders Only [facility] Radiation [id number] [place] [address] Radiation Oncology, Physician, [address] [place], [place] [address] Social History Tobacco Use Types Packs/Day Years [...] ONCOLOGY Reference Point Dosage Given to Date 19.5406920 Gy ARIA RADIATION ONCOLOGY Reference Point Session Dosage Given 1.43740494 Gy ARIA RADIATION ONCOLOGY Plan ID [id number] [...] as of this encounter Care Teams Rn Geriatric Relationship Specialty Start Date End Date Comfort SiddiqiTARUN [address] [place] [address] PCP - General 03/12/25 Km Wooten MD [address] [place] [address] Consulting Physician Radiation Oncology 02/14/25 documented as of this encounter
--- OUTSIDE RECORDS SUMMARY | 2025-05-30 19:54 | XMS_ITS | Encounter Summary ---
Author Organization [facility] Address [address] [place] [address] Care Team Providers Care Web Design Specialist Name Role Phone Tejal Saeed APRN Primary Care Provider [phone] Km Wooten MD Unavailable [phone] Comfort Siddiqi APRN Primary Care Provider [phone] Encounter Details Date Type Department Care Team (Late st Contact Info) Description 02/08/2025 Lab Requisition [facility] [address] [place] [address] Con Sumner MD [address] [facility] [address] [place] [address] Hemorrhage of anus and rectum Social History [...] EDT) Case Report Sugical Pathology Consult Case: [id number] Authorizing Provider: Con Sumner MD Collected: 02/08/20251104 Ordering Location: [facility] Lab Received: 02/08/2025 110 Pathologist: Luis Weiner DO Specimen: Colon, [id number] 02/10/2025 12:[address] [facility] Final Diagnosis DESIGNATED COLON, RECTUM; MASS, BIOPSY (OUTSIDE SLIDES; [id number]; 02/05/2025): - MODERATELY DIFFERENTIATED ADENOCARCINOMA (SEE COMMENT). - MMR BY IHC (PER REPORT): - RETAINED NUCLEAR EXPRESSION OF ALL FOUR PROTEINS (MLH1, PMS2, MSH2 AND MSH6). 02/10/2025 12:09 PM EDT [facility] at 1209 EDT Comment Correlation with endoscopic findings and imaging is recommended to determine site of tumor (colon vs rectum) given specimen designation. 02/10/2025 12:09 PM EDT [facility] Clinical Information K62.5 - Hemorrhage of anus and rectum [ICD-10-CM] 02/10/2025 12:09 PM EDT [facility] Gross Description A. [id number] Received along with a corresponding pathology report from [facility] are 5 slide(s) labeled outside case: [id number] collected on 01/31/2025. 02/10/2025 12:09 PM EDT [facility] Note: A resident was involved in the service. I attest I examined the relevant preparations for the specimens and confirmed the diagnosis or interpretation. 02/10/2025 12:09 PM EDT [facility] Tissue Colon structure / Unknown 02/08/2025 11:05 AM EDT 02/08/2025 11:05 AM EDT us Con Sumner MD LAB PATHOLOGY ORDERABLES Final Result [facility] [address] [place] [address] documented in this encounter Visit Diagnoses Diagnosis [...] documented as of this encounter Care Teams Web Design Specialist Relationship Specialty Start Date End Date Tejal Saeed APRN [address] [place] [address] PCP - General 11/07/20 03/11/25 Comfort Siddiqi APRN [address] [place] [address] PCP - General 03/12/25 Km Wooten MD 800 [facility] [address] [place] [address] Consulting Physician Radiation Oncology 02/14/25 documented as of this encounter
--- OUTSIDE RECORDS SUMMARY | 2025-05-30 19:54 | XMS_ITS | Encounter Summary ---
Author Organization Healthcare Address [address] [place] [address] Care Team Providers Care Air Twist Operator Name Role Phone Km Wooten MD Unavailable [phone] Comfort Siddiqi APRN Primary Care Provider [phone] Encounter Details Date Type Department Care Team (Late st Contact Info) Description 04/26/2025 Orders Only [facility] Radiation [id number] [place] [address] Radiation Oncology, Physician, [address] [place], [place] [address] Social History Tobacco Use Types Packs/Day Years [...] as of this encounter Care Teams Air Twist Operator Relationship Specialty Start Date End Date Comfort Siddiqi APRN [address] [place] [address] PCP - General 03/12/25 Km Wooten MD [address] [address] Consulting Physician Radiation Oncology 02/14/25 documented as of this encounter
--- OUTSIDE RECORDS SUMMARY | 2025-05-30 19:54 | XMS_ITS | Encounter Summary ---
Author Organization [facility] Address [address] [id number] Care Team Providers Care Training Executive Name Role Phone Km Wooten MD Unavailable [phone] Comfort Siddiqi APRN Primary Care Provider [phone] Encounter Details Date Type Department Care Team [...] documented as of this encounter Care Teams Training Executive Relationship Specialty Start Date End Date Comfort Siddiqi APRN [address] [place] [address] PCP - General 03/12/25 Km Wooten MD [address] [place], [place] 29[address]D [place] [address] Consulting Physician Radiation Oncology 02/14/25 documented as of this encounter
--- OUTSIDE RECORDS SUMMARY | 2025-05-30 19:54 | XMS_ITS | Encounter Summary ---
Author Organization Healthcare Address [address] [place] [address] Care Team Providers Care French Weaver Name Role Phone Km Wooten MD Unavailable [phone] Comfort Siddiqi APRN Primary Care Provider [phone] Encounter Details Date Type Department Care Team (Late st Contact Info) Description 04/09/2025 Orders Only [facility] [id number] [place] [address] Radiation Oncology, Physician, [address] [place], [place] [address] Social History Tobacco Use Types Packs/Day Years [...] ONCOLOGY Reference Point Dosage Given to Date 27.65518053 Gy ARIA RADIATION ONCOLOGY Reference Point Session Dosage Given 1.60114648 Gy ARIA RADIATION ONCOLOGY Plan ID [id number] [...] documented as of this encounter Care Teams French Weaver Relationship Specialty Start Date End Date Comfort SiddiqiTARUN [address] [place] [address] PCP - General 03/12/25 Km Wooten MD [id number] [place] [address] Consulting Physician Radiation Oncology 02/14/25 documented as of this encounter
--- OUTSIDE RECORDS SUMMARY | 2025-05-30 19:54 | XMS_ITS ---
Author Organization Healthcare Address [address] [place] [address] Care Team Providers Care Private Household Worker Name Role Phone Km Wooten MD Unavailable [phone] Comfort Siddiqi APRN Primary Care Provider [phone] Active Problems Problem Noted Date Diagnosed Date [...]
--- OUTSIDE RECORDS SUMMARY | 2025-05-30 19:54 | XMS_ITS | Encounter Summary ---
Author Organization Healthcare Address [address] [place] [address] Care Team Providers Care Refiner Operator Name Role Phone Km Wooten MD Unavailable [phone] Comfort Siddiqi APRN Primary Care Provider [phone] Encounter Details Date Type Department Care Team (Late st Contact Info) Description 04/08/2025 Orders Only [facility] Radiation [id number] [place] [address] Radiation Oncology, Physician, [address] [place], [place] [address] Social History Tobacco Use Types Packs/Day Years [...] ONCOLOGY Reference Point Dosage Given to Date 25.66562190 Gy ARIA RADIATION ONCOLOGY Reference Point Session Dosage Given 1.38134415 Gy ARIA RADIATION ONCOLOGY Plan ID A1A8 [...] documented as of this encounter Care Teams Refiner Operator Relationship Specialty Start Date End Date Comfort SiddiqiTARUN [address] [place] [address] PCP - General 03/12/25 Km Wooten MD [id number] [place] [address] Consulting Physician Radiation Oncology 02/14/25 documented as of this encounter
--- OUTSIDE RECORDS SUMMARY | 2025-05-30 19:54 | XMS_ITS | Encounter Summary ---
Author Organization Healthcare Address [address] [place] [address] Care Team Providers Care Multimedia Authoring Specialist Name Role Phone Km Wooten MD Unavailable [phone] Comfort Siddiqi APRN Primary Care Provider [phone] Encounter Details Date Type Department Care Team (Late st Contact Info) Description 04/04/2025 Orders Only [facility]iation [id number] [place] [address] Radiation Oncology, Physician, [address] [place], [place] [address] Social History Tobacco Use Types Packs/Day Years [...] ONCOLOGY Reference Point Dosage Given to Date 21.82842168 Gy ARIA RADIATION ONCOLOGY Reference Point Session Dosage Given 1.39667534 Gy ARIA RADIATION ONCOLOGY Plan ID [id number] [...] documented as of this encounter Care Teams Multimedia Authoring Specialist Relationship Specialty Start Date End Date Comfort SiddiqiTARUN [address] [place] [address] PCP - General 03/12/25 Km Wooten MD [id number] [place] [address] Consulting Physician Radiation Oncology 02/14/25 documented as of this encounter
--- OUTSIDE RECORDS SUMMARY | 2025-05-30 19:54 | XMS_ITS | Encounter Summary ---
Author Organization [facility] Address [address] [id number] Care Team Providers Care Picture Copyist Name Role Phone Km Wooten MD Unavailable [phone] Comfort Siddiqi APRN Primary Care Provider [phone] Encounter Details Date Type Department Care Team [...] documented as of this encounter Care Teams Picture Copyist Relationship Specialty Start Date End Date Comfort Siddiqi APRN [address] [place] [address] PCP - General 03/12/25 Km Wooten MD [address] [place], [place] [address]D [place] [address] Consulting Physician Radiation Oncology 02/14/25 documented as of this encounter
--- OUTSIDE RECORDS SUMMARY | 2025-05-30 19:54 | XMS_ITS | Encounter Summary ---
Author Organization Healthcare Address [address] [place] [address] Care Team Providers Care Neighborhood Coordinator Name Role Phone Km Wooten MD Unavailable [phone] Comfort Siddiqi APRN Primary Care Provider [phone] Encounter Details Date Type Department Care Team (Late st Contact Info) Description 04/05/2025 Orders Only [facility] Radiation [id number] [place] [address] Radiation Oncology, Physician, [address] [place], [place] [address] Social History Tobacco Use Types Packs/Day Years [...] ONCOLOGY Reference Point Dosage Given to Date 23.45911998 Gy ARIA RADIATION ONCOLOGY Reference Point Session Dosage Given 1.62571837 Gy ARIA RADIATION ONCOLOGY Plan ID A1A8 [...] documented as of this encounter Care Teams Neighborhood Coordinator Relationship Specialty Start Date End Date Comfort SiddiqiTARUN [address] [place] [address] PCP - General 03/12/25 Km Wooten MD [id number] [place] [address] Consulting Physician Radiation Oncology 02/14/25 documented as of this encounter
== END 2025-05-30 20:03 | disposition home or self-care (01) ==
PROVIDERS: Emergency Provider Student in an Organized Health Care Education/Training Program; PCP Family Medicine
DX: T82.524A Displacement of infusion catheter, initial encounter (principal); Z45.2 Encounter for adjustment and management of vascular access device
CPT/HCPCS: 99282; 99283

== ENCOUNTER 2025-05-31 15:17 | Outpatient (CLI) | payer OTHER, SELFPAY | END 2025-05-31 23:59 | disposition home or self-care (01) | LOC: INF 15:22 | PROVIDERS: PCP Family Medicine; Visit Provider Internal Medicine Medical Oncology | DX: C20 Malignant neoplasm of rectum (principal) | CPT/HCPCS: 96374; 99211; G0463; J1642 ==

== ENCOUNTER 2025-06-12 09:48 | Outpatient (CLI) | payer OTHER, SELFPAY ==
--- OUTSIDE RECORDS SUMMARY | 2025-04-12 12:42 | XMS_ITS | Encounter Summary ---
Author Organization [facility] Address [address] [id number] Care Team Providers Care Workers' Compensation Claims Supervisor Name Role Phone Km Wooten MD Unavailable [phone] Comfort Siddiqi APRN Primary Care Provider [phone] Encounter Details Date Type Department Care Team (Latest Contact Info) Description 04/12/2025 1:42 PM EDT - 04/12/2025 11:59 PM EDT Hospital Encounter [facility] [address] [id number] [place] [address] Discharge Disposition: Still a Patient Social History [...] documented as of this encounter Care Teams Workers' Compensation Claims Supervisor Relationship Specialty Start Date End Date Comfort Siddiqi APRN [address] [place] [address] PCP - General 03/12/25 Km Wooten MD [address] [facility] [address]D [place] [address] Consulting Physician Radiation Oncology 02/14/25 documented as of this encounter
--- OUTSIDE RECORDS SUMMARY | 2025-04-15 07:33 | XMS_ITS | Encounter Summary ---
Author Organization [facility] Address [address] [id number] Care Team Providers Care Turbine Measurements Engineer Name Role Phone Km Wooten MD Unavailable [phone] Comfort Siddiqi APRN Primary Care Provider [phone] Encounter Details Date Type Department Care Team (Latest Contact Info) Description 04/15/2025 8:33 AM EDT - 04/15/2025 1:26 PM EDT Hospital Encounter [facility] [address] [id number] [place] [address] Discharge Disposition: Still a Patient Social History [...] documented as of this encounter Care Teams Turbine Measurements Engineer Relationship Specialty Start Date End Date Comfort Siddiqi APRN [address] [place] [address] PCP - General 03/12/25 Km Wooten MD [address] [facility] [facility] [address] [place] [address] Consulting Physician Radiation Oncology 02/14/25 documented as of this encounter
--- OUTSIDE RECORDS SUMMARY | 2025-04-15 12:27 | XMS_ITS | Encounter Summary ---
Author Organization Healthcare Address [address] [id number] Care Team Providers Care Tobacco Flavorer Name Role Phone Km Wooten MD Unavailable [phone] Comfort Siddiqi APRN Primary Care Provider [phone] Encounter Details Date Type Department Care Team (Latest Contact Info) Description 04/15/2025 1:27 PM EDT - 04/15/2025 11:59 PM EDT Hospital Encounter [facility] [address] [id number] [place] [address] Discharge Disposition: Still a Patient Social History [...] documented as of this encounter Care Teams Tobacco Flavorer Relationship Specialty Start Date End Date Comfort Siddiqi APRN [address] [place] [address] PCP - General 03/12/25 Km Wooten MD 800 [address] [facility] C114D [place] [address] Consulting Physician Radiation Oncology 02/14/25 documented as of this encounter
--- OUTSIDE RECORDS SUMMARY | 2025-04-16 12:28 | XMS_ITS | Encounter Summary ---
Author Organization Healthcare Address [address] [id number] Care Team Providers Care Economic Adviser Name Role Phone Km Wooten MD Unavailable [phone] Comfort Siddiqi APRN Primary Care Provider [phone] Encounter Details Date Type Department Care Team (Latest Contact Info) Description 04/16/2025 1:28 PM EDT - 04/16/2025 11:59 PM EDT Hospital Encounter [facility] [address] GL255M [place] [address] Discharge Disposition: Still a Patient Social History [...] documented as of this encounter Care Teams Economic Adviser Relationship Specialty Start Date End Date Comfort Siddiqi APRN [address] [place] [address] PCP - General 03/12/25 Km Wooten MD 800 [address] [facility] C114D [place] [address] Consulting Physician Radiation Oncology 02/14/25 documented as of this encounter
--- OUTSIDE RECORDS SUMMARY | 2025-04-17 12:52 | XMS_ITS | Encounter Summary ---
Author Organization Healthcare Address [address] [id number] Care Team Providers Care Parking Lot Laborer Name Role Phone Km Wooten MD Unavailable Comfort Siddiqi APRN Primary Care Provider [phone] Encounter Details Date Type Department Care Team (Latest Contact Info) Description 04/17/2025 1:52 PM EDT - 04/17/2025 11:59 PM EDT Hospital Encounter [facility] [address] [id number] [place] [address] Discharge Disposition: Still a Patient Social History [...] documented as of this encounter Care Teams Parking Lot Laborer Relationship Specialty Start Date End Date Comfort Siddiqi APRN [address] [place] [address] PCP - General 03/12/25 Km Wooten MD 800 [address] [facility] C114D [place] [address] Consulting Physician Radiation Oncology 02/14/25 documented as of this encounter
--- OUTSIDE RECORDS SUMMARY | 2025-04-18 12:36 | XMS_ITS | Encounter Summary ---
Author Organization [facility] Address [address] [place] [id number] Care Team Providers Care Jump Roll Operator Name Role Phone Km Wooten MD Unavailable [phone] Comfort Siddiqi APRN Primary Care Provider [phone] Encounter Details Date Type Department Care Team (Latest Contact Info) Description 04/18/2025 1:36 PM EDT - 04/18/2025 2:02 PM EDT Hospital Encounter [facility] [address] [id number] [place] [address] Discharge Disposition: Still a Patient Social History [...] documented as of this encounter Care Teams Jump Roll Operator Relationship Specialty Start Date End Date Comfort Siddiqi APRN [address] [place] [address] PCP - General 03/12/25 Km Wooten MD [address] [facility] C114D [place] [address] Consulting Physician Radiation Oncology 02/14/25 documented as of this encounter
--- OUTSIDE RECORDS SUMMARY | 2025-04-18 13:03 | XMS_ITS | Encounter Summary ---
Author Organization [facility] Address [address] [place] [id number] Care Team Providers Care Abrasives Sales Representative Name Role Phone Km Wooten MD Unavailable [phone] Comfort Siddiqi APRN Primary Care Provider [phone] Reason for Visit * Reason Comments OTV Encounter Details Date Type Department Care Team (Latest Contact Info) Description 04/18/2025 2:03 PM EDT - 04/18/2025 11:59 PM EDT Hospital Encounter [facility] [address] [id number] [place] [address] Km Wooten MD [address] [place] [address] Malignant neoplasm of rectum (CMS/HCC) (Primary Dx) [...] Sign Reading Time Taken Comments Blood Pressure 131/75 04/18/2025 2:26 PM EDT Pulse 83 04/18/2025 2:26 PM EDT Temperature 36.8 C (98.2 F) 04/18/2025 2:26 PM EDT Respiratory Rate 16 04/18/2025 2:26 PM EDT Oxygen Saturation 96% 04/18/2025 2:26 PM EDT Inhaled Oxygen Concentration - - Weight 124 kg (274 lb 0.5 oz) 04/18/2025 2:26 PM EDT Height - - Body Mass Index 44.23 03/12/2025 9:47 AM EDT documented in this [...] Progress Notes - Purvi Randolph MD - 04/18/2025 2:20 PM EDT RADIATION ONCOLOGY ON TREATMENT VISIT Date of service: 04/18/2025 Patient Name: Carlos Tripp : 1970 Date: 04/18/2025 REFERRING PHYSICIAN: Con Sumner MD DIAGNOSIS: (lower) Rectal Adenocarcinoma Cancer Staging Malignant neoplasm of rectum (CMS/HCC) Staging form: Colon and Rectum, AJCC 8th Edition - Clinical: Stage IIIB (cT3, cN2a, cM0) - Unsigned HPI: Carlos Tripp is a 55 y.o. male with [id number] lower rectal adenocarcinoma receiving induction chemoradiation Radiation Treatments Active Plans Pelvis& inguinals_PTV50 [A1A8] Most recent treatment: Dose planned: 200 cGy (fraction 21 on 04/18/2025) Total: Dose planned: 5,000 cGy (25 fractions) Elapsed Days: 28 Reference Points Pelvis Most recent treatment: Dose given: 200 cGy (on 04/18/2025) Total: Dose given: 4,200 cGy Elapsed Days: 28 SUBJECTIVE: He reports Mild fatigue Mild dysuria ('07/06'), but no diarrhea Improved constipation with Miralax PRN, and dietary changes; has regular bowel movements Good compliance and tolerance with oral Capecitabine He denies: Active rectal pain, painful skin reactions, ongoing rectal bleeding OBJECTIVE: Visit Vitals BP 131/75 Pulse 83 Temp 36.8 ??C (98.2 ??F) Resp 16 Wt 124 kg (274 lb 0.5 oz) SpO2 96% BMI 44.23 kg/m?? Smoking Status Never BSA 2.4 m?? [...] Radiation Oncology [facility] Pager: [phone] Cosigned by Km Wooten MD at 04/18/2025 2:57 PM EDT Associated attestation - Km Wooten MD - 04/18/2025 2:57 PM EDT I saw and evaluated [...] documented as of this encounter Care Teams Abrasives Sales Representative Relationship Specialty Start Date End Date Comfort Siddiqi APRN [address] [place] [address] PCP - General 03/12/25 Km Wooten MD 800 [facility] C114D [place] [address] Consulting Physician Radiation Oncology 02/14/25 documented as of this encounter
--- OUTSIDE RECORDS SUMMARY | 2025-04-19 12:42 | XMS_ITS | Encounter Summary ---
Author Organization Healthcare Address [address] [id number] Care Team Providers Care Pet Counselor Name Role Phone Km Wooten MD Unavailable [phone] Comfort Siddiqi APRN Primary Care Provider [phone] Encounter Details Date Type Department Care Team (Latest Contact Info) Description 04/19/2025 1:42 PM EDT - 04/19/2025 11:59 PM EDT Hospital Encounter [facility] [address] [id number] [place] [address] Discharge Disposition: Still a Patient Social History [...] documented as of this encounter Care Teams Pet Counselor Relationship Specialty Start Date End Date Comfort Siddiqi APRN [address] [place] [address] PCP - General 03/12/25 Km Wooten MD [address] [facility] [address] [place] [address] Consulting Physician Radiation Oncology 02/14/25 documented as of this encounter
--- OUTSIDE RECORDS SUMMARY | 2025-04-22 07:10 | XMS_ITS | Encounter Summary ---
Author Organization Healthcare Address [address] [id number] Care Team Providers Care District Adviser Name Role Phone Km Wooten MD Unavailable [phone] Comfort Siddiqi APRN Primary Care Provider [phone] Encounter Details Date Type Department Care Team (Latest Contact Info) Description 04/22/2025 8:10 AM EDT - 04/22/2025 1:39 PM EDT Hospital Encounter [facility] [address] [id number] [place] [address] Discharge Disposition: Still a Patient Social History [...] documented as of this encounter Care Teams District Adviser Relationship Specialty Start Date End Date Comfort Siddiqi APRN [address] [place] [address] PCP - General 03/12/25 Km Wooten MD [address] [facility] [address] [place] [address] Consulting Physician Radiation Oncology 02/14/25 documented as of this encounter
--- OUTSIDE RECORDS SUMMARY | 2025-04-22 12:40 | XMS_ITS | Encounter Summary ---
Author Organization Healthcare Address [address] [id number] Care Team Providers Care Scrap Cutter Name Role Phone Km Wooten MD Unavailable [phone] Comfort Siddiqi APRN Primary Care Provider [phone] Encounter Details Date Type Department Care Team (Latest Contact Info) Description 04/22/2025 1:40 PM EDT - 04/22/2025 11:59 PM EDT Hospital Encounter [facility] Rad[facility] [address] [id number] [place] [address] Discharge Disposition: Still a Patient Social History [...] documented as of this encounter Care Teams Scrap Cutter Relationship Specialty Start Date End Date Comfort Siddiqi APRN [address] [place] [address] PCP - General 03/12/25 Km Wooten MD [address] [facility] C114D [place] [address] Consulting Physician Radiation Oncology 02/14/25 documented as of this encounter
--- OUTSIDE RECORDS SUMMARY | 2025-04-23 12:48 | XMS_ITS | Encounter Summary ---
Author Organization Healthcare Address [address] [id number] Care Team Providers Care Containers Sales Representative Name Role Phone Km Wooten MD Unavailable [phone] Comfort Siddiqi APRN Primary Care Provider [phone] Encounter Details Date Type Department Care Team (Latest Contact Info) Description 04/23/2025 1:48 PM EDT - 04/23/2025 11:59 PM EDT Hospital Encounter [facility] [address] [id number] [place] [address] Discharge Disposition: Still a Patient Social History [...] documented as of this encounter Care Teams Containers Sales Representative Relationship Specialty Start Date End Date Comfort Siddiqi APRN [address] [place] [address] PCP - General 03/12/25 Km Wooten MD [address] [facility] [address] [place] [address] Consulting Physician Radiation Oncology 02/14/25 documented as of this encounter
--- OUTSIDE RECORDS SUMMARY | 2025-04-24 12:41 | XMS_ITS | Encounter Summary ---
Author Organization Healthcare Address [address] [id number] Care Team Providers Care Product Safety Associate Name Role Phone Km Wooten MD Unavailable [phone] Comfort Siddiqi APRN Primary Care Provider [phone] Encounter Details Date Type Department Care Team (Latest Contact Info) Description 04/24/2025 1:41 PM EDT - 04/24/2025 11:59 PM EDT Hospital Encounter [facility] [id number] [place] [address] Discharge Disposition: Still a Patient Social History [...] as of this encounter Care Teams Product Safety Associate Relationship Specialty Start Date End Date Comfort Siddiqi APRN [address] [place] [address] PCP - General 03/12/25 Km Wooten MD [address] [facility] [address] [place] [address] Consulting Physician Radiation Oncology 02/14/25 documented as of this encounter
--- OUTSIDE RECORDS SUMMARY | 2025-04-29 08:39 | XMS_ITS | Encounter Summary ---
Author Organization Healthcare Address [address] [id number] Care Team Providers Care Brake Repairer Railroad Name Role Phone Km Wooten MD Unavailable [phone] Comfort Siddiqi APRN Primary Care Provider [phone] Encounter Details Date Type Department Care Team (Latest Contact Info) Description 04/29/2025 8:39 AM EST - 04/29/2025 11:[address] [facility] Hospital Encounter P[facility] CC Radiation [address] [id number] [place] [address] Discharge Disposition: Still a Patient Social History [...] documented as of this encounter Care Teams Brake Repairer Railroad Relationship Specialty Start Date End Date Comfort Siddiqi APRN [address] [place] [address] PCP - General 03/12/25 Km Wooten MD [address] [facility] C114D [place] [address] Consulting Physician Radiation Oncology 02/14/25 documented as of this encounter
--- OUTSIDE RECORDS SUMMARY | 2025-05-27 13:28 | XMS_ITS | Encounter Summary ---
Author Organization [facility] Address [address] [id number] Care Team Providers Care Drywall Finisher Foreman Name Role Phone Km Wooten MD Unavailable [phone] Comfort Siddiqi APRN Primary Care Provider [phone] Reason for Visit * Reason Comments Follow-up Encounter Details Date Type Department Care Team (Latest Contact Info) Description 05/27/2025 1:28 PM EST - 05/27/2025 11:59 PM EST Hospital Encounter [facility] Rad[facility] [id number] [place] [address] Marci Gonzalez POOLROOM/POOLHALL MANAGER [address] [place] [address] Malignant neoplasm of rectum (CMS/HCC) (Primary Dx) [...] Notes * Progress Notes - Marci Gonzalez, POOLROOM/POOLHALL MANAGER - 05/27/2025 2:20 PM EST [facility] RADIATION MEDICINE RADIATION ONCOLOGY POOLROOM/POOLHALL MANAGER FOLLOW UP NOTE Carlos Tripp is a [...] lower rectum adenoca, Stage III cT3 cN2a [id number] 02/05/25, now one month status post neoadjuvant [...] with Dr. Kaleb Bill Medical Oncology at [facility] in [place]. Review of Systems Constitutional: Negative for activity [...] regarding follow-up care. Marci Gonzalez RN, MSN, CUSTOMER SERVICE TELLER-C, Nurse Practitioner Radiation Oncology [1] Social History [...] as of this encounter Care Teams Drywall Finisher Foreman Relationship Specialty Start Date End Date Comfort Siddiqi APRN [address] [place] [address] PCP - General 03/12/25 Km Wooten MD [address] [facility] [address] [place] [address] Consulting Physician Radiation Oncology 02/14/25 documented as of this encounter
[2025-06-12] VITALS (10 sets, daily range): BP systolic 112–127; BP diastolic 60–69; PULSE 71–87; RESP 16–17; TEMP 36.4; O2SAT 99; BMI 44.9
[2025-06-12 10:05] LABS: Hematocrit 37.1 % (42.0-52.0); Hemoglobin 12.6 g/dL (14.1-18.0); Immature Granulocytes % 0.5 %; Mean Corpuscular HGB Conc 34.0 g/dL (31.8-35.4); Mean Corpuscular Hemoglobin 28.6 pg (27.0-31.2); Mean Corpuscular Volume 84.3 fl (80-94); Nucleated Red Blood Cells % 0 %; Platelet Count 140 K/mm3 (142-424); Red Blood Count 4.40 M/mm3 (4.60-6.20); Red Cell Distribution Width-SD 45.5 fL; White Blood Count 4.2 K/mm3 (4.8-10.8)
[2025-06-12 10:09] LABS: Albumin Level 4.0 g/dl (3.5-5.0); Chloride 109 mmol/L (98-107); Potassium 4.0 mmoL/L (3.5-5.1); Sodium 136 mmol/L (136-145)
[2025-06-12 10:11] LABS: Blood Urea Nitrogen 12 mg/dl (9-20); Creatinine Clearance Estimated 85 mL/min (50-200); Creatinine,Serum 0.90 mg/dl (0.66-1.25); Estimated Glomerular Filt Rate 88 ml/min (>60); GFR (African American) 106 ML/MIN (>60)
[2025-06-12 10:12] LABS: Alanine Aminotransferase 36 U/L (12-78); Albumin/Globulin Ratio 1.6 (1.1-1.8); Alkaline Phosphatase 76 U/L (38-126); Anion Gap 4.0 mEq/L (5-15); Aspartate Amino Transferase 39 U/L (17-59); Bilirubin,Total 1.4 mg/dl (0.2-1.3); Calcium 8.9 mg/dl (8.4-10.2); Carbon Dioxide 27 mmol/L (22.0-30.0); Globulin 2.5 g/dL (1.3-3.2); Glucose 98 mg/dl (74-100); Total Protein,Serum 6.5 g/dl (6.3-8.2)
[2025-06-12 10:28] LABS: Total Cells Counted 100
[2025-06-12 10:29] LABS: RBC Morphology Normal
[2025-06-12] MEDS: ONDANSETRON 4MG ODT 12 MG (10:47)
[2025-06-12] MEDS: DEXTROSE 5 % IN WATER 100 ML IV ×2 (10:48→11:00)
[2025-06-12] MEDS: DEXAMETHASONE 4MG TABLET 12 MG (10:48)
[2025-06-12] MEDS: ONDANSETRON 4MG ODT 4 MG (10:48)
--- OUTSIDE RECORDS SUMMARY | 2025-06-12 11:25 | XMS_ITS | Encounter Summary ---
Author Organization Healthcare Address [address] [place] [address] Care Team Providers Care Category Manager Name Role Phone Km Wooten MD Unavailable [phone] Comfort Siddiqi APRN Primary Care Provider [phone] Encounter Details Date Type Department Care Team (Late st Contact Info) Description 04/19/2025 Orders Only [facility] Radiation [address] [id number] [place] [address] Radiation Oncology, Physician, [address] [place], [place] [address] Social History Tobacco Use Types Packs/Day Years [...] ONCOLOGY Reference Point Dosage Given to Date 43.67672793 Gy ARIA RADIATION ONCOLOGY Reference Point Session Dosage Given 1.22076869 Gy ARIA RADIATION ONCOLOGY Plan ID A1A8 [...] documented as of this encounter Care Teams Category Manager Relationship Specialty Start Date End Date Comfort SiddiqiTARUN [address] [place] [address] PCP - General 03/12/25 Km Wooten MD 800 [facility] [address] [place] [address] Consulting Physician Radiation Oncology 02/14/25 documented as of this encounter
--- OUTSIDE RECORDS SUMMARY | 2025-06-12 11:25 | XMS_ITS | Encounter Summary ---
Author Organization Healthcare Address [address] [place] [address] Care Team Providers Care Machine Bunch Maker Name Role Phone Km Wooten MD Unavailable [phone] Comfort Siddiqi APRN Primary Care Provider [phone] Encounter Details Date Type Department Care Team (Late st Contact Info) Description 04/22/2025 Orders Only [facility] Radiation [id number] [place] [address] Radiation Oncology, Physician, [address] [place], [place] [address] Social History Tobacco [...] ONCOLOGY Reference Point Dosage Given to Date 45.492636451 0001 Gy ARIA RADIATION ONCOLOGY Reference Point Session Dosage Given 1.18199680 Gy ARIA RADIATION ONCOLOGY Plan ID A1A8 [...] as of this encounter Care Teams Machine Bunch Maker Relationship Specialty Start Date End Date Comfort SiddiqiTARUN [address] [place] [address] PCP - General 03/12/25 Km Wooten MD [id number] [place] [address] Consulting Physician Radiation Oncology 02/14/25 documented as of this encounter
--- OUTSIDE RECORDS SUMMARY | 2025-06-12 11:25 | XMS_ITS | Encounter Summary ---
Author Organization [facility] Address [address] [id number] Care Team Providers Care Dairy Nutrition Consultant Name Role Phone Km Wooten MD Unavailable [phone] Comfort Siddiqi APRN Primary Care Provider [phone] Encounter Details Date Type Department Care Team [...] as of this encounter Care Teams Dairy Nutrition Consultant Relationship Specialty Start Date End Date Comfort Siddiqi APRN [address] [place] [address] PCP - General 03/12/25 Km Wooten MD 800 [facility] [address] [place] [address] Consulting Physician Radiation Oncology 02/14/25 documented as of this encounter
--- OUTSIDE RECORDS SUMMARY | 2025-06-12 11:25 | XMS_ITS | Encounter Summary ---
Author Organization Healthcare Address [address] [place] [address] Care Team Providers Care Skein Drier Name Role Phone Km Wooten MD Unavailable [phone] Comfort Siddiqi APRN Primary Care Provider [phone] Encounter Details Date Type Department Care Team (Late st Contact Info) Description 04/23/2025 Orders Only [facility] Radiation [id number] [place] [address] Radiation Oncology, Physician, [address] [place], [place] [address] Social History Tobacco Use Types Packs/Day Years [...] ONCOLOGY Reference Point Dosage Given to Date 47.308229287 0001 Gy ARIA RADIATION ONCOLOGY Reference Point Session Dosage Given 1.31637038 Gy ARIA RADIATION ONCOLOGY Plan ID A1A8 [...] documented as of this encounter Care Teams Skein Drier Relationship Specialty Start Date End Date Comfort SiddiqiTARUN [address] [place] [address] PCP - General 03/12/25 Km Wooten MD [address] [place] [address] Consulting Physician Radiation Oncology 02/14/25 documented as of this encounter
--- OUTSIDE RECORDS SUMMARY | 2025-06-12 11:26 | XMS_ITS | Encounter Summary ---
Author Organization Healthcare Address [address] [place] [address] Care Team Providers Care Community Relations Liaison Name Role Phone Km Wooten MD Unavailable [phone] Comfort Siddiqi APRN Primary Care Provider [phone] Encounter Details Date Type Department Care Team (Late st Contact Info) Description 04/24/2025 Orders Only [facility] Radiation [id number] [place] [address] Radiation Oncology, Physician, [address] [place], [place] [address] Social History Tobacco Use Types Packs/Day Years [...] ONCOLOGY Reference Point Dosage Given to Date 49.718163568 0001 Gy ARIA RADIATION ONCOLOGY Reference Point Session Dosage Given 1.90828013 Gy ARIA RADIATION ONCOLOGY Plan ID A1A8 [...] as of this encounter Care Teams Community Relations Liaison Relationship Specialty Start Date End Date Comfort SiddiqiTARUN [address] [place] [address] PCP - General 03/12/25 Km Wooten MD [address] [place] [address] Consulting Physician Radiation Oncology 02/14/25 documented as of this encounter
--- OUTSIDE RECORDS SUMMARY | 2025-06-12 11:26 | XMS_ITS | Encounter Summary ---
Author Organization [facility] Address [address] [id number] Care Team Providers Care Antique Furniture Repairer Name Role Phone Km Wooten MD Unavailable [phone] Comfort Siddiqi APRN Primary Care Provider [phone] Encounter Details Date Type Department Care Team [...] documented as of this encounter Care Teams Antique Furniture Repairer Relationship Specialty Start Date End Date Comfort Siddiqi APRN [address] [place] [address] PCP - General 03/12/25 Km Wooten MD 800 [facility] [address] [place] [address] Consulting Physician Radiation Oncology 02/14/25 documented as of this encounter
--- OUTSIDE RECORDS SUMMARY | 2025-06-12 11:26 | XMS_ITS | Encounter Summary ---
Author Organization [facility] Address [address] 7445036 Care Team Providers Care Services Rep Name Role Phone Km Wooten MD Unavailable [phone] Comfort Siddiqi APRN Primary Care Provider [phone] Encounter Details Date Type Department Care Team [...] documented as of this encounter Care Teams Services Rep Relationship Specialty Start Date End Date Comfort Siddiqi APRN [address] [place] [address] PCP - General 03/12/25 Km Wooten MD 800 [facility] [address] [place] [address] Consulting Physician Radiation Oncology 02/14/25 documented as of this encounter
--- OUTSIDE RECORDS SUMMARY | 2025-06-12 11:26 | XMS_ITS | Encounter Summary ---
Author Organization Healthcare Address [address] [place] [address] Care Team Providers Care Inside Sales Account Executive Name Role Phone Km Wooten MD Unavailable [phone] Comfort Siddiqi APRN Primary Care Provider [phone] Encounter Details Date Type Department Care Team (Late st Contact Info) Description 04/18/2025 Orders Only [facility] Radiation [id number] [place] [address] Radiation Oncology, Physician, [address] [place], [place] [address] Social History Tobacco Use Types Packs/Day Years [...] ONCOLOGY Reference Point Dosage Given to Date 41.90176440 Gy ARIA RADIATION ONCOLOGY Reference Point Session Dosage Given 1.01791316 Gy ARIA RADIATION ONCOLOGY Plan ID A1A8 [...] documented as of this encounter Care Teams Inside Sales Account Executive Relationship Specialty Start Date End Date Comfort SiddiqiTARUN [address] [place] [address] PCP - General 03/12/25 Km Wooten MD 800 [facility] [address] [place] [address] Consulting Physician Radiation Oncology 02/14/25 documented as of this encounter
--- OUTSIDE RECORDS SUMMARY | 2025-06-12 11:27 | XMS_ITS | Encounter Summary ---
Author Organization [facility] Address [address] [place] [address] Care Team Providers Care Linux Network Systems Administrator Name Role Phone Tejal Saeed APRN Primary Care Provider [phone] Km Wooten MD Unavailable [phone] Comfort Siddiqi APRN Primary Care Provider [phone] Encounter Details Date Type Department Care Team (Late st Contact Info) Description 01/08/2025 Orders Only External Location [address] [place] [address] Provider, External Social History Tobacco Use Types [...] on filedocumented in this encounter Care Teams Linux Network Systems Administrator Relationship Specialty Start Date End Date Tejal Saeed APRN [address] [place] [address] PCP - General 11/07/20 03/11/25 Comfort Siddiqi APRN [address] [place] [address] PCP - General 03/12/25 Km Wooten MD 800 [facility] [address] [place] [address] Consulting Physician Radiation Oncology 02/14/25 documented as of this encounter
--- OUTSIDE RECORDS SUMMARY | 2025-06-12 11:27 | XMS_ITS | Encounter Summary ---
Author Organization [facility] Address [address] [place] [address] Care Team Providers Care Welding Machine Operator Gas Name Role Phone Tejal Saeed APRN Primary Care Provider [phone] Km Wooten MD Unavailable [phone] Comfort Siddiqi APRN Primary Care Provider [phone] Encounter Details Date Type Department Care Team (Late st Contact Info) Description 01/08/2025 Orders Only External Location [address] [place] [address] Provider, External Social History Tobacco Use Types [...] on filedocumented in this encounter Care Teams Welding Machine Operator Gas Relationship Specialty Start Date End Date Tejal Saeed APRN [address] [place] [address] PCP - General 11/07/20 03/11/25 Comfort Siddiqi APRN [address] [place] [address] PCP - General 03/12/25 Km Wooten MD [address] [facility] [address] [place] [address] Consulting Physician Radiation Oncology 02/14/25 documented as of this encounter
--- OUTSIDE RECORDS SUMMARY | 2025-06-12 11:27 | XMS_ITS | Encounter Summary ---
Author Organization [facility] Address [address] [place] [address] Care Team Providers Care Drafting Layout Worker Name Role Phone Tejal Saeed APRN Primary Care Provider [phone] Km Wooten MD Unavailable [phone] Comfort Siddiqi APRN Primary Care Provider [phone] Encounter Details Date Type Department Care Team (Late st Contact Info) Description 01/08/2025 Orders Only External Location [address] [place] [address] Provider, External Social History Tobacco Use Types [...] on filedocumented in this encounter Care Teams Drafting Layout Worker Relationship Specialty Start Date End Date Tejal Saeed APRN [address] [place] [address] PCP - General 11/07/20 03/11/25 Comfort Siddiqi APRN [address] [place] [address] PCP - General 03/12/25 Km Wooten MD 800 [facility] [address] [place] [address] Consulting Physician Radiation Oncology 02/14/25 documented as of this encounter
--- OUTSIDE RECORDS SUMMARY | 2025-06-12 11:27 | XMS_ITS | Encounter Summary ---
Author Organization Healthcare Address [address] [place] [address] Care Team Providers Care Director Medicare Sales Name Role Phone Km Wooten MD Unavailable [phone] Comfort Siddiqi APRN Primary Care Provider [phone] Encounter Details Date Type Department Care Team (Late st Contact Info) Description 04/17/2025 Orders Only [facility] Radiation [id number] [place] [address] Radiation Oncology, Physician, [address] [place], [place] [address] Social History Tobacco Use Types Packs/Day Years [...] ONCOLOGY Reference Point Dosage Given to Date 39.8059765 Gy ARIA RADIATION ONCOLOGY Reference Point Session Dosage Given 1.85215620 Gy ARIA RADIATION ONCOLOGY Plan ID A1A8 [...] as of this encounter Care Teams Director Medicare Sales Relationship Specialty Start Date End Date Devang ComfortTARUN [address] [place] [address] PCP - General 03/12/25 Km Wooten MD [address] [place] [address] Consulting Physician Radiation Oncology 02/14/25 documented as of this encounter
--- OUTSIDE RECORDS SUMMARY | 2025-06-12 11:27 | XMS_ITS | Encounter Summary ---
Author Organization Healthcare Address [address] [place] [address] Care Team Providers Care Cobbler Mckay Name Role Phone Km Wooten MD Unavailable [phone] Comfort Siddiqi APRN Primary Care Provider [phone] Encounter Details Date Type Department Care Team (Late st Contact Info) Description 04/16/2025 Orders Only [facility] Radiation [address] [id number] [place] [address] Radiation Oncology, Physician, [address] [place], [place] [address] Social History Tobacco Use Types Packs/Day Years [...] ONCOLOGY Reference Point Dosage Given to Date 37.46164088 Gy ARIA RADIATION ONCOLOGY Reference Point Session Dosage Given 1.25909612 Gy ARIA RADIATION ONCOLOGY Plan ID [id number] [...] documented as of this encounter Care Teams Cobbler Mckay Relationship Specialty Start Date End Date Comfort SiddiqiTARUN [address] [place] [address] PCP - General 03/12/25 Km Wooten MD 800 [facility] [address] [place] [address] Consulting Physician Radiation Oncology 02/14/25 documented as of this encounter
--- OUTSIDE RECORDS SUMMARY | 2025-06-12 11:28 | XMS_ITS | Encounter Summary ---
Author Organization [facility] Address [address] [id number] Care Team Providers Care Tax Services Professional Name Role Phone Km Wooten MD Unavailable Comfort Siddiqi APRN Primary Care Provider [phone] Encounter Details Date Type Department Care Team [...] as of this encounter Care Teams Tax Services Professional Relationship Specialty Start Date End Date Comfort Siddiqi APRN [address] [place] [address] PCP - General 03/12/25 Km Wooten MD 800 [facility] [address] [place] [address] Consulting Physician Radiation Oncology 02/14/25 documented as of this encounter
--- OUTSIDE RECORDS SUMMARY | 2025-06-12 11:28 | XMS_ITS | Encounter Summary ---
Author Organization Healthcare Address [address] [place] [address] Care Team Providers Care Software Educator Name Role Phone Km Wooten MD Unavailable [phone] Comfort Siddiqi APRN Primary Care Provider [phone] Encounter Details Date Type Department Care Team (Late st Contact Info) Description 04/15/2025 Orders Only [facility] Radiation [address] [place] [address] Radiation Oncology, Physician, [address] [place], [place] [address] Social History Tobacco Use Types Packs/Day Years [...] ONCOLOGY Reference Point Dosage Given to Date 35.18146793 Gy ARIA RADIATION ONCOLOGY Reference Point Session Dosage Given 1.86644154 Gy ARIA RADIATION ONCOLOGY Plan ID [id number] [...] as of this encounter Care Teams Software Educator Relationship Specialty Start Date End Date Comfort SiddiqiTARUN [address] [place] [address] PCP - General 03/12/25 Km Wooten MD 800 [facility] [address] [place] [address] Consulting Physician Radiation Oncology 02/14/25 documented as of this encounter
--- OUTSIDE RECORDS SUMMARY | 2025-06-12 11:29 | XMS_ITS ---
Author Organization [facility] Address [address] [place] [address] Care Team Providers Care Medical Planner Name Role Phone Km Wooten MD Unavailable [phone] Comfort Siddiqi APRN Primary Care Provider [phone] Active Problems Problem Noted Date Diagnosed Date Class III obesity with body mass index (BMI) of 40.0 or higher 03/21/2025 Malignant neoplasm of rectum 2025 Cancer Staging:Clinical:Stage IIIB(cT3, cN2a, cM0) - Unsigned Current Treatment and Therapy Plans No current plan information found. Past Treatment and Therapy Plans No past plan information found. Current Radiation Episodes * Radiation Therapy: Bilateral RectumOverview* First Treatment Date:03/21/2025 Latest Treatment Date:04/26/2025 Intent:Consolidative Episode Provider: Intended Treatment Radiotherapy to Right and Le ft Rectum * Linked Problems Rectal cancer Treatment Courses* [...]
--- OUTSIDE RECORDS SUMMARY | 2025-06-12 11:29 | XMS_ITS | Encounter Summary ---
Author Organization [facility] Address [address] [id number] Care Team Providers Care Cottage Parent Name Role Phone Km Wooten MD Unavailable [phone] Comfort Siddiqi APRN Primary Care Provider [phone] Encounter Details Date Type Department Care Team [...] documented as of this encounter Care Teams Cottage Parent Relationship Specialty Start Date End Date Comfort Siddiqi APRN [address] [place] [address] PCP - General 03/12/25 Km Wooten MD 800 [facility] [address] [place] [address] Consulting Physician Radiation Oncology 02/14/25 documented as of this encounter
--- OUTSIDE RECORDS SUMMARY | 2025-06-12 11:29 | XMS_ITS | Encounter Summary ---
Author Organization Healthcare Address [address] [place] [address] Care Team Providers Care Laborer Demolition Name Role Phone Km Wooten MD Unavailable [phone] Comfort Sdidiqi APRN Primary Care Provider [phone] Encounter Details Date Type Department Care Team (Late st Contact Info) Description 04/26/2025 Orders Only [facility] Radiation [id number] [place] [address] Radiation Oncology, Physician, [address] [place], [place] [address] Social History Tobacco Use Types Packs/Day Years [...] as of this encounter Care Teams Laborer Demolition Relationship Specialty Start Date End Date Comfort Siddiqi APRN [address] [place] [address] PCP - General 03/12/25 Km Wooten MD [address] [address] Consulting Physician Radiation Oncology 02/14/25 documented as of this encounter
--- OUTSIDE RECORDS SUMMARY | 2025-06-12 11:29 | XMS_ITS | Encounter Summary ---
Author Organization [facility] Address [address] [place] [address] Care Team Providers Care Stonemason Supervisor Name Role Phone Tejal Saeed APRN Primary Care Provider [phone] Km Wooten MD Unavailable [phone] Comfort Siddiqi APRN Primary Care Provider [phone] Encounter Details Date Type Department Care Team (Late st Contact Info) Description 02/08/2025 Lab Requisition [facility] H Lab [address] [place] [address] Con Sumner MD [address] [facility] [address] [place] [address] Hemorrhage of anus and rectum Social History [...] EDT) Case Report Sugical Pathology Consult Case: [id number] Authorizing Provider: Con Sumner MD Collected: 02/08/20251104 Ordering Location: [facility] Lab Received: 02/08/2025 110 Pathologist: Luis Weiner DO Specimen: Colon, [id number] 02/10/2025 12:09 PM EDT [facility] Final Diagnosis DESIGNATED COLON, RECTUM; MASS, BIOPSY (OUTSIDE SLIDES; [id number]; 02/05/2025): - MODERATELY DIFFERENTIATED ADENOCARCINOMA (SEE COMMENT). - MMR BY IHC (PER REPORT): - RETAINED NUCLEAR EXPRESSION OF ALL FOUR PROTEINS (MLH1, PMS2, MSH2 AND MSH6). 02/10/2025 12:09 PM EDT [facility] at 1209 EDT Comment Correlation with endoscopic findings and imaging is recommended to determine site of tumor (colon vs rectum) given specimen designation. 02/10/2025 12:09 PM EDT [facility] Clinical Information K62.5 - Hemorrhage of anus and rectum [ICD-10-CM] 02/10/2025 12:09 PM EDT [facility] Gross Description A. [id number] Received along with a corresponding pathology report from [facility] are 5 slide(s) labeled outside case: [id number] collected on 01/31/2025. 02/10/2025 12:09 PM EDT [facility] Note: A resident was involved in the service. I attest I examined the relevant preparations for the specimens and confirmed the diagnosis or interpretation. 02/10/2025 12:09 PM EDT [facility] Tissue Colon structure / Unknown 02/08/2025 11:05 AM EDT 02/08/2025 11:05 AM EDT us Con Sumner MD LAB PATHOLOGY ORDERABLES Final Result [facility] [address] [place] [address] documented in this encounter Visit Diagnoses Diagnosis [...] documented as of this encounter Care Teams Stonemason Supervisor Relationship Specialty Start Date End Date Tejal Saeed APRN [address] [place] [address] PCP - General 11/07/20 03/11/25 Comfort Siddiqi APRN [address] [place] [address] PCP - General 03/12/25 Km Wooten MD 800 [facility] [address] [place] [address] Consulting Physician Radiation Oncology 02/14/25 documented as of this encounter
--- OUTSIDE RECORDS SUMMARY | 2025-06-12 11:29 | XMS_ITS | Encounter Summary ---
Author Organization Healthcare Address [address] [place] [address] Care Team Providers Care Family Service Aide Name Role Phone Km Wooten MD Unavailable [phone] Comfort Siddiqi APRN Primary Care Provider [phone] Encounter Details Date Type Department Care Team (Late st Contact Info) Description 04/26/2025 Orders Only [facility] Radiation [id number] [place] [address] Radiation Oncology, Physician, [address] [place], [place] [address] Social History Tobacco Use Types Packs/Day Years [...] ONCOLOGY Reference Point Dosage Given to Date 49.862640223 0001 Gy ARIA RADIATION ONCOLOGY Plan ID [...] documented as of this encounter Care Teams Family Service Aide Relationship Specialty Start Date End Date Comfort Siddiqi APRN [address] [place] [address] PCP - General 03/12/25 Km Wooten MD 800 [facility] [address] [place] [address] Consulting Physician Radiation Oncology 02/14/25 documented as of this encounter
[2025-06-12] MEDS: FLUOROURACIL 500MG/10ML VIAL 910 MG IV (14:05)
== END 2025-06-12 23:59 | disposition home or self-care (01) ==
PROVIDERS: PCP Family Medicine; Visit Provider Internal Medicine Medical Oncology
DX: C20 Malignant neoplasm of rectum (principal); Z51.11 Encounter for antineoplastic chemotherapy
CPT/HCPCS: 80053; 85007; 85025; 85027; 96368; 96413; 96415; 96416; J0640; J7060; J8540; J9190; J9263; Q0162

== ENCOUNTER 2025-06-13 00:45 | Emergency (ER) | payer OTHER, SELFPAY ==
--- OUTSIDE RECORDS SUMMARY | 2025-04-15 07:33 | XMS_ITS | Encounter Summary ---
Author Organization [facility] Address [address] [id number] Care Team Providers Care Paint Stripper Name Role Phone Km Wooten MD Unavailable [phone] Comfort Siddiqi APRN Primary Care Provider [phone] Encounter Details Date Type Department Care Team (Latest Contact Info) Description 04/15/2025 8:33 AM EDT - 04/15/2025 1:26 PM EDT Hospital Encounter [facility] [address] [id number] [place] [address] Discharge Disposition: Still a Patient Social History [...] documented as of this encounter Care Teams Paint Stripper Relationship Specialty Start Date End Date Comfort Siddiqi APRN [address] [place] [address] PCP - General 03/12/25 Km Wooten MD [address] [facility] C[address] [place] [address] Consulting Physician Radiation Oncology 02/14/25 documented as of this encounter
--- OUTSIDE RECORDS SUMMARY | 2025-04-15 12:27 | XMS_ITS | Encounter Summary ---
Author Organization Healthcare Address [address] [id number] Care Team Providers Care Drywall Contractor Name Role Phone Km Wooten MD Unavailable [phone] Comfort Siddiqi APRN Primary Care Provider [phone] Encounter Details Date Type Department Care Team (Latest Contact Info) Description 04/15/2025 1:27 PM EDT - 04/15/2025 11:59 PM EDT Hospital Encounter [facility] [address] [id number] [place] [address] Discharge Disposition: Still a Patient Social History [...] as of this encounter Care Teams Drywall Contractor Relationship Specialty Start Date End Date Comfort Siddiqi APRN [address] [place] [address] PCP - General 03/12/25 Km Wooten MD 800 [address] [facility] C114D [place] [address] Consulting Physician Radiation Oncology 02/14/25 documented as of this encounter
--- OUTSIDE RECORDS SUMMARY | 2025-04-16 12:28 | XMS_ITS | Encounter Summary ---
Author Organization Healthcare Address [address] [id number] Care Team Providers Care Data Scientist Name Role Phone Km Wooten MD Unavailable Comfort Siddiqi APRN Primary Care Provider [phone] Encounter Details Date Type Department Care Team (Latest Contact Info) Description 04/16/2025 1:28 PM EDT - 04/16/2025 11:59 PM EDT Hospital Encounter [facility] [address] [id number] [place] [address] Discharge Disposition: Still a Patient Social History [...] documented as of this encounter Care Teams Data Scientist Relationship Specialty Start Date End Date Comfort Siddiqi APRN [address] [place] [address] PCP - General 03/12/25 Km Wooten MD 800 [address] [facility] C114D [place] [address] Consulting Physician Radiation Oncology 02/14/25 documented as of this encounter
--- OUTSIDE RECORDS SUMMARY | 2025-04-17 12:52 | XMS_ITS | Encounter Summary ---
Author Organization Healthcare Address [address] [id number] Care Team Providers Care Cashier And Salesperson Name Role Phone Km Wooten MD Unavailable [phone] Comfort Siddiqi APRN Primary Care Provider [phone] Encounter Details Date Type Department Care Team (Latest Contact Info) Description 04/17/2025 1:52 PM EDT - 04/17/2025 11:59 PM EDT Hospital Encounter [facility] [address] [id number] [place] [address] Discharge Disposition: Still a Patient Social History [...] documented as of this encounter Care Teams Cashier And Salesperson Relationship Specialty Start Date End Date Comfort Siddiqi APRN [address] [place] [address] PCP - General 03/12/25 Km Wooten MD 800 [address] [facility] C114D [place] [address] Consulting Physician Radiation Oncology 02/14/25 documented as of this encounter
--- OUTSIDE RECORDS SUMMARY | 2025-04-18 12:36 | XMS_ITS | Encounter Summary ---
Author Organization [facility] Address [address] [place] [id number] Care Team Providers Care Tennis Coach Name Role Phone Km Wooten MD Unavailable [phone] Comfort Siddiqi APRN Primary Care Provider [phone] Encounter Details Date Type Department Care Team (Latest Contact Info) Description 04/18/2025 1:36 PM EDT - 04/18/2025 2:02 PM EDT Hospital Encounter [facility] [address] [id number] [place] [address] Discharge Disposition: Still a Patient Social History [...] documented as of this encounter Care Teams Tennis Coach Relationship Specialty Start Date End Date Comfort Siddiqi APRN [address] [place] [address] PCP - General 03/12/25 Km Wooten MD [address] [facility] C114D [place] [address] Consulting Physician Radiation Oncology 02/14/25 documented as of this encounter
--- OUTSIDE RECORDS SUMMARY | 2025-04-18 13:03 | XMS_ITS | Encounter Summary ---
Author Organization [facility] Address [address] [place] [id number] Care Team Providers Care Acute Care Physical Therapist Name Role Phone Km Wooten MD Unavailable [phone] Comfort Siddiqi APRN Primary Care Provider [phone] Reason for Visit * Reason Comments OTV Encounter Details Date Type Department Care Team (Latest Contact Info) Description 04/18/2025 2:03 PM EDT - 04/18/2025 11:59 PM EDT Hospital Encounter [facility] Radiation [address] [id number] [place] [address] Km Wooten MD [address] [place] [address] Malignant neoplasm of rectum (CMS/HCC) (Primary Dx) [...] Tripp is a 55 y.o. male with [id number] lower rectal adenocarcinoma receiving induction chemoradiation Radiation [...] Randolph MD, PGY-3 Resident Physician, Radiation Oncology [facility] Pager: [phone] Cosigned by Km Wooten MD at 04/18/2025 [...] documented as of this encounter Care Teams Acute Care Physical Therapist Relationship Specialty Start Date End Date Comfort Siddiqi APRN [address] [place] [address] PCP - General 03/12/25 Km Wooten MD 800 [facility] C[address] [place] [address] Consulting Physician Radiation Oncology 02/14/25 documented as of this encounter
--- OUTSIDE RECORDS SUMMARY | 2025-04-19 12:42 | XMS_ITS | Encounter Summary ---
Author Organization Healthcare Address [address] [id number] Care Team Providers Care Service Order Expediter Name Role Phone Km Wooten MD Unavailable [phone] Comfort Siddiqi APRN Primary Care Provider [phone] Encounter Details Date Type Department Care Team (Latest Contact Info) Description 04/19/2025 1:42 PM EDT - 04/19/2025 11:59 PM EDT Hospital Encounter [facility] [address] [id number] [place] [address] Discharge Disposition: Still a Patient Social History [...] as of this encounter Care Teams Service Order Expediter Relationship Specialty Start Date End Date Comfort Siddiqi APRN [address] [place] [address] PCP - General 03/12/25 Km Wooten MD [address] [facility] [address] [place] [address] Consulting Physician Radiation Oncology 02/14/25 documented as of this encounter
--- OUTSIDE RECORDS SUMMARY | 2025-04-22 07:10 | XMS_ITS | Encounter Summary ---
Author Organization Healthcare Address [address] [id number] Care Team Providers Care Maintenance Construction Helper Name Role Phone Km Wooten MD Unavailable [phone] Comfort Siddiqi APRN Primary Care Provider [phone] Encounter Details Date Type Department Care Team (Latest Contact Info) Description 04/22/2025 8:10 AM EDT - 04/22/2025 1:39 PM EDT Hospital Encounter [facility] [address] [id number] [place] [address] Discharge Disposition: Still a Patient Social History [...] as of this encounter Care Teams Maintenance Construction Helper Relationship Specialty Start Date End Date Comfort Siddiqi APRN [address] [place] [address] PCP - General 03/12/25 Km Wooten MD [address] [facility] [address] [place] [address] Consulting Physician Radiation Oncology 02/14/25 documented as of this encounter
--- OUTSIDE RECORDS SUMMARY | 2025-04-22 12:40 | XMS_ITS | Encounter Summary ---
Author Organization Healthcare Address [address] [id number] Care Team Providers Care Testing Lead Name Role Phone Km Wooten MD Unavailable Comfort Siddiqi APRN Primary Care Provider [phone] Encounter Details Date Type Department Care Team (Latest Contact Info) Description 04/22/2025 1:40 PM EDT - 04/22/2025 11:59 PM EDT Hospital Encounter [facility] [id number] [place] [address] Discharge Disposition: Still a Patient Social History [...] documented as of this encounter Care Teams Testing Lead Relationship Specialty Start Date End Date Comfort Siddiqi APRN [address] [place] [address] PCP - General 03/12/25 Km Wooten MD [address] [facility] [address] [place] [address] Consulting Physician Radiation Oncology 02/14/25 documented as of this encounter
--- OUTSIDE RECORDS SUMMARY | 2025-04-23 12:48 | XMS_ITS | Encounter Summary ---
Author Organization Healthcare Address [address] [id number] Care Team Providers Care Premix Concrete Batcher Name Role Phone Km Wooten MD Unavailable [phone] Comfort Siddiqi APRN Primary Care Provider [phone] Encounter Details Date Type Department Care Team (Latest Contact Info) Description 04/23/2025 1:48 PM EDT - 04/23/2025 11:59 PM EDT Hospital Encounter [facility] Radiation [address] [id number] [place] [address] Discharge Disposition: Still a Patient Social History [...] documented as of this encounter Care Teams Premix Concrete Batcher Relationship Specialty Start Date End Date Comfort Siddiqi APRN [address] [place] [address] PCP - General 03/12/25 Km Wooten MD [address] [facility] C[address]D [place] [address] Consulting Physician Radiation Oncology 02/14/25 documented as of this encounter
--- OUTSIDE RECORDS SUMMARY | 2025-04-24 12:41 | XMS_ITS | Encounter Summary ---
Author Organization [facility] Address [address] [id number] Care Team Providers Care Sales Agent Trading Stamps Name Role Phone Km Wooten MD Unavailable [phone] Comfort Siddiqi APRN Primary Care Provider [phone] Encounter Details Date Type Department Care Team (Latest Contact Info) Description 04/24/2025 1:41 PM EDT - 04/24/2025 11:59 PM EDT Hospital Encounter [facility] [id number] [place] [address] Discharge Disposition: Still a Patient Social History [...] as of this encounter Care Teams Sales Agent Trading Stamps Relationship Specialty Start Date End Date Comfort Siddiqi APRN [address] [place] [address] PCP - General 03/12/25 Km Wooten MD [address] [facility] [address] [place] [address] Consulting Physician Radiation Oncology 02/14/25 documented as of this encounter
--- OUTSIDE RECORDS SUMMARY | 2025-04-29 08:39 | XMS_ITS | Encounter Summary ---
Author Organization Healthcare Address [address] [id number] Care Team Providers Care Teletype Technician Name Role Phone Km Wooten MD Unavailable [phone] Comfort Siddiqi APRN Primary Care Provider [phone] Encounter Details Date Type Department Care Team (Latest Contact Info) Description 04/29/2025 8:39 AM EST - 04/29/2025 11:59 PM [facility] Hospital Encounter PAV CC Radiation [address] [id number] [place] [address] Discharge Disposition: Still a Patient Social History [...] documented as of this encounter Care Teams Teletype Technician Relationship Specialty Start Date End Date Comfort Siddiqi APRN [address] [place] [address] PCP - General 03/12/25 Km Wooten MD [address] [facility] [facility] C114D [place] [address] Consulting Physician Radiation Oncology 02/14/25 documented as of this encounter
--- OUTSIDE RECORDS SUMMARY | 2025-05-27 13:28 | XMS_ITS | Encounter Summary ---
Author Organization [facility] Address [address] [id number] Care Team Providers Care Bag Bleacher Name Role Phone Km Wooten MD Unavailable [phone] Comfort Siddiqi APRN Primary Care Provider [phone] Reason for Visit * Reason Comments Follow-up Encounter Details Date Type Department Care Team (Latest Contact Info) Description 05/27/2025 1:28 PM EST - 05/27/2025 11:59 PM EST Hospital Encounter [facility] [address] [place] [address] Marci Gonzalez INSPECTOR SET UP AND LAY OUT [address] [place] [address] Malignant neoplasm of rectum (CMS/HCC) (Primary Dx) [...] Notes * Progress Notes - Marci Gonzalez, INSPECTOR SET UP AND LAY OUT - 05/27/2025 2:20 PM EST [facility] RADIATION MEDICINE RADIATION ONCOLOGY INSPECTOR SET UP AND LAY OUT FOLLOW UP NOTE Carlos Tripp is a [...] lower rectum adenoca, Stage III cT3 cN2a [id number] 02/05/25, now one month status post neoadjuvant [...] with Dr. Kaleb Bill Medical Oncology at [facility] in [place]. Review of Systems Constitutional: Negative for activity [...] regarding follow-up care. Marci Gonzalez RN, MSN, CHEMOTHERAPIST-C, Nurse Practitioner Radiation Oncology [1] Social History [...] as of this encounter Care Teams Bag Bleacher Relationship Specialty Start Date End Date Comfort Siddiqi APRN [address] [place] [address] PCP - General 03/12/25 Km Wooten MD [address] [facility] [address] [place] [address] Consulting Physician Radiation Oncology 02/14/25 documented as of this encounter
[2025-06-13 00:45] VITALS: BP 168/89; PULSE 91; RESP 17; TEMP 36.7; O2SAT 98; BMI 39.4
--- NOTE | 2025-06-13 01:00 | PC.NURSE ---
Patient medication pump alarming, and stating occ. Patient current port dressing taken down per sterile procedure. Attempted to flush line and was unsuccessful. Current needle removed from left chest port access, area cleaned with chlorahexadine solution, and 1inch blackwell needle replaced and secured with appropriate dressing. Patient tolerated procedure well. Chemo pump reattached medication currently infusing without issue.
[2025-06-13 01:15] VITALS: BP 136/86; PULSE 83; RESP 15; TEMP 36.6; O2SAT 98
--- OUTSIDE RECORDS SUMMARY | 2025-06-13 03:47 | XMS_ITS | Encounter Summary ---
Author Organization Healthcare Address [address] [place] [address] Care Team Providers Care Cartridge Feeder Name Role Phone Km Wooten MD Unavailable [phone] Comfort Siddiqi APRN Primary Care Provider [phone] Encounter Details Date Type Department Care Team (Late st Contact Info) Description 04/19/2025 Orders Only [facility] Radiation [id number] [place] [address] Radiation Oncology, Physician, [address] [place], [place] [address] Social History Tobacco Use Types Packs/Day Years [...] ONCOLOGY Reference Point Dosage Given to Date 43.50442235 Gy ARIA RADIATION ONCOLOGY Reference Point Session Dosage Given 1.04729266 Gy ARIA RADIATION ONCOLOGY Plan ID [id number] [...] documented as of this encounter Care Teams Cartridge Feeder Relationship Specialty Start Date End Date Comfort SiddiqiTARUN [address] [place] [address] PCP - General 03/12/25 Km Wooten MD 800 [facility] [address] [place] [address] Consulting Physician Radiation Oncology 02/14/25 documented as of this encounter
--- OUTSIDE RECORDS SUMMARY | 2025-06-13 03:47 | XMS_ITS | Encounter Summary ---
Author Organization [facility] Address [address] [id number] Care Team Providers Care Submarine Diver Name Role Phone Km Wooten MD Unavailable [phone] Comfort Siddiqi APRN Primary Care Provider [phone] Encounter Details Date Type Department Care Team [...] documented as of this encounter Care Teams Submarine Diver Relationship Specialty Start Date End Date Comfort Siddiqi APRN [address] [place] [address] PCP - General 03/12/25 Km Wooten MD [address] [facility] [address] [place] [address] Consulting Physician Radiation Oncology 02/14/25 documented as of this encounter
--- OUTSIDE RECORDS SUMMARY | 2025-06-13 03:47 | XMS_ITS | Encounter Summary ---
Author Organization Healthcare Address [address] [place] [address] Care Team Providers Care Painter Mirror Name Role Phone Km Wooten MD Unavailable [phone] Comfort Siddiqi APRN Primary Care Provider [phone] Encounter Details Date Type Department Care Team (Late st Contact Info) Description 04/23/2025 Orders Only [facility] Radiation [id number] [place] [address] Radiation Oncology, Physician, [address] [place], [place] [address] Social History Tobacco Use Types Packs/Day Years [...] ONCOLOGY Reference Point Dosage Given to Date 47.707069226 0001 Gy ARIA RADIATION ONCOLOGY Reference Point Session Dosage Given 1.39341676 Gy ARIA RADIATION ONCOLOGY Plan ID A1A8 [...] as of this encounter Care Teams Painter Mirror Relationship Specialty Start Date End Date Comfort SiddiqiTARUN [address] [place] [address] PCP - General 03/12/25 Km Wooten MD [address] [place] [address] Consulting Physician Radiation Oncology 02/14/25 documented as of this encounter
--- OUTSIDE RECORDS SUMMARY | 2025-06-13 03:47 | XMS_ITS | Encounter Summary ---
Author Organization Healthcare Address [address] [place] [address] Care Team Providers Care Television Mechanic Name Role Phone Km Wooten MD Unavailable [phone] Comfort Siddiqi APRN Primary Care Provider [phone] Encounter Details Date Type Department Care Team (Late st Contact Info) Description 04/22/2025 Orders Only [facility] Radiation [id number] [place] [address] Radiation Oncology, Physician, [address] [place], [place] [address] Social History Tobacco Use Types Packs/Day Years [...] ONCOLOGY Reference Point Dosage Given to Date 45.038078934 0001 Gy ARIA RADIATION ONCOLOGY Reference Point Session Dosage Given 1.82503586 Gy ARIA RADIATION ONCOLOGY Plan ID A1A8 [...] documented as of this encounter Care Teams Television Mechanic Relationship Specialty Start Date End Date Comfort SiddiqiTARUN [address] [place] [address] PCP - General 03/12/25 Km Wooten MD [address] [place] [address] Consulting Physician Radiation Oncology 02/14/25 documented as of this encounter
--- OUTSIDE RECORDS SUMMARY | 2025-06-13 03:48 | XMS_ITS ---
Author Organization [facility] Address [address] [place] [address] Care Team Providers Care School Vocational Educator Name Role Phone Km Wooten MD Unavailable [phone] Comfort Siddiqi APRN Primary Care Provider [phone] Active Problems Problem Noted Date Diagnosed Date [...]
--- OUTSIDE RECORDS SUMMARY | 2025-06-13 03:48 | XMS_ITS | Encounter Summary ---
Author Organization [facility] Address [address] [id number] Care Team Providers Care Messenger Office Name Role Phone Km Wooten MD Unavailable [phone] Comfort Siddiqi APRN Primary Care Provider [...] documented as of this encounter Care Teams Messenger Office Relationship Specialty Start Date End Date Comfort Siddiqi APRN [address] [place] [address] PCP - General 03/12/25 Km Wooten MD [address] [facility] [address] [place] [address] Consulting Physician Radiation Oncology 02/14/25 documented as of this encounter
--- OUTSIDE RECORDS SUMMARY | 2025-06-13 03:48 | XMS_ITS | Encounter Summary ---
Author Organization Healthcare Address [address] [place] [address] Care Team Providers Care Tester Regulator Name Role Phone Km Wooten MD Unavailable [phone] Comfort Siddiqi APRN Primary Care Provider Encounter Details Date Type Department Care Team (Late st Contact Info) Description 04/15/2025 Orders Only [facility] Radiation [id number] [place] [address] Radiation Oncology, Physician, [address] [place], [place] [address] Social History Tobacco Use Types Packs/Day Years [...] ONCOLOGY Reference Point Dosage Given to Date 35.47956386 Gy ARIA RADIATION ONCOLOGY Reference Point Session Dosage Given 1.66040021 Gy ARIA RADIATION ONCOLOGY Plan ID A1A8 [...] documented as of this encounter Care Teams Tester Regulator Relationship Specialty Start Date End Date Comfort SiddiqiTARUN [address] [place] [address] PCP - General 03/12/25 Km Wooten MD 800 [facility] [address] [place] [address] Consulting Physician Radiation Oncology 02/14/25 documented as of this encounter
--- OUTSIDE RECORDS SUMMARY | 2025-06-13 03:48 | XMS_ITS | Encounter Summary ---
Author Organization [facility] Address [address] [place] [address] Care Team Providers Care Technical Sme Name Role Phone Tejal Saeed APRN Primary Care Provider [phone] Km Wooten MD Unavailable [phone] Comfort Siddiqi APRN Primary Care Provider [phone] Encounter Details Date Type Department Care Team (Late st Contact Info) Description 02/08/2025 Lab Requisition [facility] H Lab [address] [place] [address] Con Sumner MD [address] [facility] [address] [place] [address] Hemorrhage of anus and rectum Social History [...] EDT) Case Report Sugical Pathology Consult Case: [id number] Authorizing Provider: Con Sumner MD Collected: 02/08/20251104 Ordering Location: [facility] Lab Received: 02/08/2025 110 Pathologist: Luis Weiner DO Specimen: Colon, [id number] 02/10/2025 12:09 PM EDT [facility] Final Diagnosis DESIGNATED COLON, RECTUM; MASS, BIOPSY (OUTSIDE SLIDES; [id number]; 02/05/2025): - MODERATELY DIFFERENTIATED ADENOCARCINOMA (SEE COMMENT). - MMR BY IHC (PER REPORT): - RETAINED NUCLEAR EXPRESSION OF ALL FOUR PROTEINS (MLH1, PMS2, MSH2 AND MSH6). 02/10/2025 12:09 PM EDT [facility] at 1209 EDT Comment Correlation with endoscopic findings and imaging is recommended to determine site of tumor (colon vs rectum) given specimen designation. 02/10/2025 12:09 PM EDT [facility] Clinical Information K62.5 - Hemorrhage of anus and rectum [ICD-10-CM] 02/10/2025 12:09 PM EDT [facility] Gross Description A. [id number] Received along with a corresponding pathology report from [facility] are 5 slide(s) labeled outside case: [id number] collected on 01/31/2025. 02/10/2025 12:09 PM EDT [facility] Note: A resident was involved in the service. I attest I examined the relevant preparations for the specimens and confirmed the diagnosis or interpretation. 02/10/2025 12:09 PM EDT [facility] Tissue Colon structure / Unknown 02/08/2025 11:05 AM EDT 02/08/2025 11:05 AM EDT us Con Sumner MD LAB PATHOLOGY ORDERABLES Final Result [facility] [address] [place] [address] documented in this encounter Visit Diagnoses Diagnosis [...] as of this encounter Care Teams Technical Sme Relationship Specialty Start Date End Date Tejal Saeed APRN [address] [place] [address] PCP - General 11/07/20 03/11/25 Comfort Siddiqi APRN [address] [place] [address] PCP - General 03/12/25 Km Wooten MD [address] [facility] [address] [place] [address] Consulting Physician Radiation Oncology 02/14/25 documented as of this encounter
--- OUTSIDE RECORDS SUMMARY | 2025-06-13 03:48 | XMS_ITS | Encounter Summary ---
Author Organization Healthcare Address [address] [place] [address] Care Team Providers Care Emergency Communications Operator Name Role Phone Km Wooten MD Unavailable [phone] Comfort Siddiqi APRN Primary Care Provider [phone] Encounter Details Date Type Department Care Team (Late st Contact Info) Description 04/17/2025 Orders Only [facility] CC Radiation [id number] [place] [address] Radiation Oncology, Physician, [address] [place], [place] [address] Social History Tobacco Use Types Packs/Day Years [...] ONCOLOGY Reference Point Dosage Given to Date 39.0140800 Gy ARIA RADIATION ONCOLOGY Reference Point Session Dosage Given 1.74934839 Gy ARIA RADIATION ONCOLOGY Plan ID A1A8 [...] as of this encounter Care Teams Emergency Communications Operator Relationship Specialty Start Date End Date Devang ComfortTARUN [address] [place] [address] PCP - General 03/12/25 Km Wooten MD [address] [place] [address] Consulting Physician Radiation Oncology 02/14/25 documented as of this encounter
--- OUTSIDE RECORDS SUMMARY | 2025-06-13 03:48 | XMS_ITS | Encounter Summary ---
Author Organization [facility] Address [address] [place] [address] Care Team Providers Care Clerical Clerk Name Role Phone Tejal Saeed APRN Primary Care Provider [phone] Km Wooten MD Unavailable [phone] Comfort Siddiqi APRN Primary Care Provider [phone] Encounter Details Date Type Department Care Team (Late st Contact Info) Description 01/08/2025 Orders Only External Location [address] [place] [address] Provider, External Social History Tobacco Use Types [...] on filedocumented in this encounter Care Teams Clerical Clerk Relationship Specialty Start Date End Date Tejal Saeed APRN [address] [place] [address] PCP - General 11/07/20 03/11/25 Comfort Siddiqi APRN [address] [place] [address] PCP - General 03/12/25 Km Wooten MD 800 [facility] [address] [place] [address] Consulting Physician Radiation Oncology 02/14/25 documented as of this encounter
--- OUTSIDE RECORDS SUMMARY | 2025-06-13 03:48 | XMS_ITS | Encounter Summary ---
Author Organization [facility] Address [address] [id number] Care Team Providers Care Airplane Navigator Name Role Phone Km Wooten MD Unavailable [phone] Comfort Siddiqi APRN Primary Care Provider [phone] Encounter Details Date Type Department Care Team [...] documented as of this encounter Care Teams Airplane Navigator Relationship Specialty Start Date End Date Comfort Siddiqi APRN [address] [place] [address] PCP - General 03/12/25 Km Wooten MD [address] [facility] [address] [place] [address] Consulting Physician Radiation Oncology 02/14/25 documented as of this encounter
--- OUTSIDE RECORDS SUMMARY | 2025-06-13 03:48 | XMS_ITS | Encounter Summary ---
Author Organization [facility] Address [address] [place] [address] Care Team Providers Care Brick Or Block Maker Name Role Phone Tejal Saeed APRN Primary Care Provider [phone] Km Wooten MD Unavailable [phone] Comfort Siddiqi APRN Primary Care Provider [phone] Encounter Details Date Type Department Care Team (Late st Contact Info) Description 01/08/2025 Orders Only External Location [address] [place] [address] Provider, External Social History Tobacco Use Types [...] on filedocumented in this encounter Care Teams Brick Or Block Maker Relationship Specialty Start Date End Date Tejal Saeed APRN [address] [place] [address] PCP - General 11/07/20 03/11/25 Comfort Siddiqi APRN [address] [place] [address] PCP - General 03/12/25 Km Wooten MD [address] [facility] [address] [place] [address] Consulting Physician Radiation Oncology 02/14/25 documented as of this encounter
--- OUTSIDE RECORDS SUMMARY | 2025-06-13 03:48 | XMS_ITS | Clinical Summary ---
Author Organization [facility] Address [address] [place] [address] Care Team Providers Care Renewable Energy Broker Name Role Phone Km Wooten MD Unavailable [phone] Comfort Siddiqi APRN Primary Care Provider [phone] Allergies No known active allergies Medications atorvastatin [...] Care Team Description 05/27/2025 1:28 PM EST - 05/27/2025 11:59 PM EST Hospital Encounter [facility] [address] [phone] Marci Gonzalez, LAST DIPPER Malignant neoplasm of rectum (CMS/HCC) (Primary Dx) Discharge Disposition: Still a Patient 05/27/2025 Travel 05/20/2025 Travel 04/29/2025 8:39 AM EST - 04/29/2025 11:59 PM EST Hospital Encounter [facility] [address] [phone] Discharge Disposition: Still a Patient 04/29/2025 Travel 04/26/2025 Orders Only [facility] [address] [phone] Radiation Oncology, PhysicianMD 04/26/2025 Orders Only [facility] [address] [phone] Radiation Oncology, PhysicianMD 04/24/2025 1:41 PM EDT - 04/24/2025 11:59 PM EDT Hospital Encounter [facility] [address] [phone] Discharge Disposition: Still a Patient 04/24/2025 Orders Only [facility] [address] [address] Radiation Oncology, PhysicianMD 04/23/2025 1:48 PM EDT - 04/23/2025 11:59 PM EDT Hospital Encounter [facility] [address] [address] Discharge Disposition: Still a Patient 04/23/2025 Orders Only [facility] [address] [phone] Radiation Oncology, PhysicianMD 04/22/2025 1:40 PM EDT - 04/22/2025 11:59 PM EDT Hospital Encounter [facility] [address] [phone] Discharge Disposition: Still a Patient 04/22/2025 8:10 AM EDT - 04/22/2025 1:39 PM EDT Hospital Encounter [facility] [address] [phone] Discharge Disposition: Still a Patient 04/22/2025 Orders Only [facility] [address] [phone] Radiation Oncology, PhysicianMD 04/22/2025 Travel 04/19/2025 1:42 PM EDT - 04/19/2025 11:59 PM EDT Hospital Encounter [facility] [address] [address] Discharge Disposition: Still a Patient 04/19/2025 Orders Only [facility] [address] [phone] Radiation Oncology, PhysicianMD 04/18/2025 2:03 PM EDT - 04/18/2025 11:59 PM EDT Hospital Encounter [facility] [address] [phone] Km Wooten MD Malignant neoplasm of rectum (CMS/HCC) (Primary Dx) Discharge Disposition: Still a Patient 04/18/2025 1:36 PM EDT - 04/18/2025 2:02 PM EDT Hospital Encounter [facility] [address] [phone] Discharge Disposition: Still a Patient 04/18/2025 Orders Only [facility] [address] [phone] Radiation Oncology, PhysicianMD 04/17/2025 1:52 PM EDT - 04/17/2025 11:59 PM EDT Hospital Encounter [facility] [address] [phone] Discharge Disposition: Still a Patient 04/17/2025 Orders Only [facility] [address] [phone] Radiation Oncology, PhysicianMD 04/16/2025 1:28 PM EDT - 04/16/2025 11:59 PM EDT Hospital Encounter [facility] [address] [phone] Discharge Disposition: Still a Patient 04/16/2025 Orders Only [facility] [address] [phone] Radiation Oncology, PhysicianMD 04/15/2025 1:27 PM EDT - 04/15/2025 11:59 PM EDT Hospital Encounter [facility] [address] [phone] Discharge Disposition: Still a Patient 04/15/2025 8:33 AM EDT - 04/15/2025 1:26 PM EDT Hospital Encounter [facility] [address] [phone] Discharge Disposition: Still a Patient 04/15/2025 Orders Only [facility] [address] [phone] Radiation Oncology, Physician, 04/15/2025 Travel 04/12/2025 1:42 PM EDT - 04/12/2025 11:59 PM EDT Hospital Encounter [facility] [address] [phone] Discharge Disposition: Still a Patient 04/12/2025 Orders Only [facility] [address] [phone] Radiation Oncology, PhysicianMD 04/11/2025 1:50 PM EDT - 04/11/2025 11:59 PM EDT Hospital Encounter [facility] [address] [phone] Km Wooten MD Malignant neoplasm of rectum (CMS/HCC) (Primary Dx) Discharge Disposition: Still a Patient 04/11/2025 1:31 PM EDT - 04/11/2025 1:49 PM EDT Hospital Encounter [facility] [address] [phone] Discharge Disposition: Still a Patient 04/11/2025 Orders Only [facility] [address] [phone] Radiation Oncology, PhysicianMD 04/10/2025 1:31 PM EDT - 04/10/2025 11:59 PM EDT Hospital Encounter [facility] [address] [address] Discharge Disposition: Still a Patient 04/10/2025 Orders Only [facility] [address] [address] Radiation Oncology, PhysicianMD 04/09/2025 1:45 PM EDT - 04/09/2025 11:59 PM EDT Hospital Encounter [facility] [address] [address] Discharge Disposition: Still a Patient 04/09/2025 Orders Only [facility] [address] [address] Radiation Oncology, PhysicianMD 04/08/2025 1:38 PM EDT - 04/08/2025 11:59 PM EDT Hospital Encounter [facility] [address] [address] Discharge Disposition: Still a Patient 04/08/2025 5:30 AM EDT - 04/08/2025 1:37 PM EDT Hospital Encounter [facility] [address] [address] Discharge Disposition: Still a Patient 04/08/2025 Orders Only [facility] [address] [address] Radiation Oncology, PhysicianMD 04/08/2025 Travel 04/05/2025 2:06 PM EDT - 04/05/2025 11:59 PM EDT Hospital Encounter [facility] [address] [address] Discharge Disposition: Still a Patient 04/05/2025 Orders Only [facility] [address] [address] Radiation Oncology, PhysicianMD 04/04/2025 1:53 PM EDT - 04/04/2025 11:59 PM EDT Hospital Encounter [facility] [address] [phone] Nancy Stanley MD Malignant neoplasm of rectum (CMS/HCC) (Primary Dx) Discharge Disposition: Still a Patient 04/04/2025 1:47 PM EDT - 04/04/2025 1:52 PM EDT Hospital Encounter [facility] [address] [phone] Discharge Disposition: Still a Patient 04/04/2025 Orders Only [facility] [address] [place] [address] Radiation Oncology, PhysicianMD 04/03/2025 1:29 PM EDT - 04/03/2025 11:59 PM EDT Hospital Encounter [facility] [address] [phone] Discharge Disposition: Still a Patient 04/03/2025 Orders Only [facility] [address] [phone] Radiation Oncology, PhysicianMD 04/02/2025 1:58 PM EDT - 04/02/2025 11:59 PM EDT Hospital Encounter [facility] [address] [phone] Discharge Disposition: Still a Patient 04/02/2025 Orders Only [facility] [address] [phone] Radiation Oncology, PhysicianMD 04/01/2025 1:41 PM EDT - 04/01/2025 11:59 PM EDT Hospital Encounter [facility] [address] [phone] Discharge Disposition: Still a Patient 04/01/2025 5:30 AM EDT - 04/01/2025 1:40 PM EDT Hospital Encounter [facility] [address] [phone] Discharge Disposition: Still a Patient 04/01/2025 Orders Only [facility] [address] [phone] Radiation Oncology, PhysicianMD 04/01/2025 Travel 03/29/2025 1:25 PM EDT - 03/29/2025 11:59 PM EDT Hospital Encounter [facility] [address] [address] Discharge Disposition: Still a Patient 03/29/2025 Orders Only [facility] [address] [address] Radiation Oncology, PhysicianMD 03/28/2025 1:54 PM EDT - 03/28/2025 11:59 PM EDT Hospital Encounter [facility] [address] [phone] Km Wooten MD Malignant neoplasm of rectum (CMS/HCC) (Primary Dx) Discharge Disposition: Still a Patient 03/28/2025 1:37 PM EDT - 03/28/2025 1:53 PM EDT Hospital Encounter [facility] [address] [address] Discharge Disposition: Still a Patient 03/28/2025 Orders Only [facility] [address] [phone] Radiation Oncology, PhysicianMD 03/27/2025 1:38 PM EDT - 03/27/2025 11:59 PM EDT Hospital Encounter [facility] [address] [phone] Discharge Disposition: Still a Patient 03/27/2025 Orders Only [facility] [address] [phone] Radiation Oncology, PhysicianMD 03/26/2025 1:30 PM EDT - 03/26/2025 11:59 PM EDT Hospital Encounter [facility] [address] [phone] Discharge Disposition: Still a Patient 03/26/2025 Orders Only [facility] [address] [phone] Radiation Oncology, PhysicianMD 03/25/2025 1:35 PM EDT - 03/25/2025 11:59 PM EDT Hospital Encounter [facility] [address] [address] Discharge Disposition: Still a Patient 03/25/2025 5:30 AM EDT - 03/25/2025 1:34 PM EDT Hospital Encounter [facility] [address] [phone] Discharge Disposition: Still a Patient 03/25/2025 Orders Only [facility] [address] [address] Radiation Oncology, Physician, 03/25/2025 Travel 03/22/2025 1:49 PM EDT - 03/22/2025 11:59 PM EDT Hospital Encounter [facility] [address] [phone] Discharge Disposition: Still a Patient 03/22/2025 Orders Only [facility] [address] [address] Radiation Oncology, Physician, 03/21/2025 2:12 PM EDT - 03/21/2025 11:59 PM EDT Hospital Encounter [facility] [address] [address] Km Wooten MD Malignant neoplasm of rectum (CMS/HCC) (Primary Dx) Discharge Disposition: Still a Patient 03/21/2025 1:48 PM EDT - 03/21/2025 2:11 PM EDT Hospital Encounter [facility] [address] [phone] Km Wooten MD Discharge Disposition: Still a Patient 03/21/2025 Travel 03/21/2025 Orders Only [facility] [address] [address] Radiation Oncology, Physician, 03/20/2025 Travel 03/18/2025 8:34 AM EDT - 03/18/2025 11:59 PM EDT Hospital Encounter [facility] [address] [phone] Discharge Disposition: Still a Patient 03/18/2025 Travel 03/15/2025 9:00 AM EDT Office Visit [facility] Head, Neck & Respiratory 800 [facility] [address]nd [place] [address] Deepak Haider MD Malignant neoplasm of rectum (CMS/HCC) (Primary Dx) 03/15/2025 Travel from Last 3 Months Family History [...] 02/20/2016 Sigmoidoscopy 02/20/2016 [facility]-Colorectal Cancer Screening 02/20/2016 [id number] Vaccine (4 - season) 2025 06/24/2021, 11/08/2020, 10/11/2020 [facility]-Influenza Vaccine (#1) 2025 05/16/2021 [facility]-Depression Screening 2026 025, 2025 [facility]-DTaP,Tdap,and Td Vaccine s (2 - Td or Tdap) 04/18/2031 04/18/2021 [facility]-Zoster Vaccines Completed 07/27/2021, 05/16/2021 [facility]-Obesity Intervention Completed 025, 02/05/2025 HPV Vaccines (No Doses Required) Completed [facility]-HIB Vaccines Aged Out No longer e [...] SESSION SUMMARY Routine 03/21/2025 2:11 PM EDT from Last 3 Months Results [...] ONCOLOGY Reference Point Dosage Given to Date 49.942074575 0001 Gy ARIA RADIATION ONCOLOGY Plan ID [...] ONCOLOGY Reference Point Dosage Given to Date 49.376124644 0001 Gy ARIA RADIATION ONCOLOGY Reference Point Session Dosage Given 1.97109805 Gy ARIA RADIATION ONCOLOGY Plan ID [id number] [...] ONCOLOGY Reference Point Dosage Given to Date 47.161366190 0001 Gy ARIA RADIATION ONCOLOGY Reference Point Session Dosage Given 1.21420316 Gy ARIA RADIATION ONCOLOGY Plan ID [id number] [...] ONCOLOGY Reference Point Dosage Given to Date 45.376025508 0001 Gy ARIA RADIATION ONCOLOGY Reference Point Session Dosage Given 1.29397178 Gy ARIA RADIATION ONCOLOGY Plan ID [id number] [...] ONCOLOGY Reference Point Dosage Given to Date 43.29919176 Gy ARIA RADIATION ONCOLOGY Reference Point Session Dosage Given 1.92441555 Gy ARIA RADIATION ONCOLOGY Plan ID [id number] [...] 2:08 PM EDT Physician Radiation Oncology RADIATION ONCLUZ [...] ONCOLOGY Reference Point Dosage Given to Date 41.29607442 Gy ARIA RADIATION ONCOLOGY Reference Point Session Dosage Given 1.27878463 Gy ARIA RADIATION ONCOLOGY Plan ID [id number] [...] ONCOLOGY Reference Point Dosage Given to Date 39.6970862 Gy ARIA RADIATION ONCOLOGY Reference Point Session Dosage Given 1.38610922 Gy ARIA RADIATION ONCOLOGY Plan ID [id number] [...] ARIA RADIATION ONCOLOGY 04/17/2025 2:14 PM EDT us Physician Radiation Oncology RADIATION [...] ONCOLOGY Reference Point Dosage Given to Date 37.78637010 Gy ARIA RADIATION ONCOLOGY Reference Point Session Dosage Given 1.59031615 Gy ARIA RADIATION ONCOLOGY Plan ID [id number] [...] ARIA RADIATION ONCOLOGY 04/16/2025 2:14 PM EDT us Physician Radiation Oncology RADIATION [...] ONCOLOGY Reference Point Dosage Given to Date 35.80011350 Gy ARIA RADIATION ONCOLOGY Reference Point Session Dosage Given 1.86456512 Gy ARIA RADIATION ONCOLOGY Plan ID [id number] [...] ONCOLOGY Reference Point Dosage Given to Date 33.56050165 Gy ARIA RADIATION ONCOLOGY Reference Point Session Dosage Given 1.76569591 Gy ARIA RADIATION ONCOLOGY Plan ID [id number] [...] ONCOLOGY Reference Point Dosage Given to Date 31.15151521 Gy ARIA RADIATION ONCOLOGY Reference Point Session Dosage Given 1.12695439 Gy ARIA RADIATION ONCOLOGY Plan ID [id number] [...] ONCOLOGY Reference Point Dosage Given to Date 29.46049274 Gy ARIA RADIATION ONCOLOGY Reference Point Session Dosage Given 1.51851550 Gy ARIA RADIATION ONCOLOGY Plan ID [id number] [...] ONCOLOGY Reference Point Dosage Given to Date 27.25412252 Gy ARIA RADIATION ONCOLOGY Reference Point Session Dosage Given 1.15151876 Gy ARIA RADIATION ONCOLOGY Plan ID [id number] [...] ONCOLOGY Reference Point Dosage Given to Date 25.77135316 Gy ARIA RADIATION ONCOLOGY Reference Point Session Dosage Given 1.70478956 Gy ARIA RADIATION ONCOLOGY Plan ID [id number] [...] ONCOLOGY Reference Point Dosage Given to Date 23.24270881 Gy ARIA RADIATION ONCOLOGY Reference Point Session Dosage Given 1.94211353 Gy ARIA RADIATION ONCOLOGY Plan ID [id number] [...] ONCOLOGY Reference Point Dosage Given to Date 21.22379593 Gy ARIA RADIATION ONCOLOGY Reference Point Session Dosage Given 1.84044903 Gy ARIA RADIATION ONCOLOGY Plan ID [id number] [...] ONCOLOGY Reference Point Dosage Given to Date 19.6889524 Gy ARIA RADIATION ONCOLOGY Reference Point Session Dosage Given 1.80443503 Gy ARIA RADIATION ONCOLOGY Plan ID [id number] [...] ONCOLOGY Reference Point Dosage Given to Date 17.63316248 Gy ARIA RADIATION ONCOLOGY Reference Point Session Dosage Given 1.19494930 Gy ARIA RADIATION ONCOLOGY Plan ID [id number] [...] ONCOLOGY Reference Point Dosage Given to Date 15.32728010 Gy ARIA RADIATION ONCOLOGY Reference Point Session Dosage Given 1.30408795 Gy ARIA RADIATION ONCOLOGY Plan ID [id number] [...] ONCOLOGY Reference Point Dosage Given to Date 13.24171672 Gy ARIA RADIATION ONCOLOGY Reference Point Session Dosage Given 1.86285992 Gy ARIA RADIATION ONCOLOGY Plan ID [id number] [...] ONCOLOGY Reference Point Dosage Given to Date 11.98234368 Gy ARIA RADIATION ONCOLOGY Reference Point Session Dosage Given 1.60589046 Gy ARIA RADIATION ONCOLOGY Plan ID [id number] [...] ONCOLOGY Reference Point Dosage Given to Date 9.47175281 Gy ARIA RADIATION ONCOLOGY Reference Point Session Dosage Given 1.14230377 Gy ARIA RADIATION ONCOLOGY Plan ID [id number] [...] ONCOLOGY Reference Point Dosage Given to Date 7.76177129 Gy ARIA RADIATION ONCOLOGY Reference Point Session Dosage Given 1.94494123 Gy ARIA RADIATION ONCOLOGY Plan ID [id number] [...] ONCOLOGY Reference Point Dosage Given to Date 5.92536018 Gy ARIA RADIATION ONCOLOGY Reference Point Session Dosage Given 1.39306392 Gy ARIA RADIATION ONCOLOGY Plan ID [id number] [...] ONCOLOGY Reference Point Dosage Given to Date 3.98568614 Gy ARIA RADIATION ONCOLOGY Reference Point Session Dosage Given 1.29030534 Gy ARIA RADIATION ONCOLOGY Plan ID [id number] [...] ONCOLOGY Reference Point Dosage Given to Date 1.83906109 Gy ARIA RADIATION ONCOLOGY Reference Point Session Dosage Given 1.55818267 Gy ARIA RADIATION ONCOLOGY Plan ID [id number] [...] GY ORDERABLES Final Result [facility] RADIATION ONCOLOGY from Last 3 Months Additional Health Concerns Active Problems Noted Date Diagnosed Date Autogenerated Problem 02/28/[address] [facility] Care Teams Renewable Energy Broker Relationship Specialty Start Date End Date Comfort Siddiqi APRN [address] [place] [address] PCP - General 03/12/25 Km Wooten MD 800 [facility] [address] [place] [address] Consulting Physician Radiation Oncology 02/14/25
--- OUTSIDE RECORDS SUMMARY | 2025-06-13 03:48 | XMS_ITS | Encounter Summary ---
Author Organization Healthcare Address [address] [place] [address] Care Team Providers Care Wildlife Control Operator Name Role Phone Km Wooten MD Unavailable [phone] Comfort Siddiqi APRN Primary Care Provider [phone] Encounter Details Date Type Department Care Team (Late st Contact Info) Description 04/24/2025 Orders Only [facility] [address] [place] [address] Radiation Oncology, Physician, [address] [place], [place] [id number] Social History Tobacco Use Types Packs/Day Years [...] ONCOLOGY Reference Point Dosage Given to Date 49.747875659 0001 Gy [facility] RADIATION ONCOLOGY Reference Point Session Dosage Given 1.41391831 Gy [facility]A RADIATION ONCOLOGY Plan ID [id number] [...] documented as of this encounter Care Teams Wildlife Control Operator Relationship Specialty Start Date End Date Comfort SiddiqiTARUN [address] [place] [address] PCP - General 03/12/25 Km Wooten MD [id number] [place] [address] Consulting Physician Radiation Oncology 02/14/25 documented as of this encounter
--- OUTSIDE RECORDS SUMMARY | 2025-06-13 03:48 | XMS_ITS | Encounter Summary ---
Author Organization [facility] Address [address] [place] [address] Care Team Providers Care Learning Administrator Name Role Phone Tejal Saeed APRN Primary Care Provider [phone] Km Wooten MD Unavailable [phone] Comfort Siddiqi APRN Primary Care Provider [phone] Encounter Details Date Type Department Care Team (Late st Contact Info) Description 01/08/2025 Orders Only External Location [address] [place] [address] Provider, External Social History Tobacco Use Types [...] on filedocumented in this encounter Care Teams Learning Administrator Relationship Specialty Start Date End Date Tejal Saeed APRN [address] [place] [address] PCP - General 11/07/20 03/11/25 Comfort Siddiqi APRN [address] [place] [address] PCP - General 03/12/25 Km Wooten MD 800 [facility] [address] [place] [address] Consulting Physician Radiation Oncology 02/14/25 documented as of this encounter
--- OUTSIDE RECORDS SUMMARY | 2025-06-13 03:48 | XMS_ITS | Encounter Summary ---
Author Organization [facility] Address [address] [id number] Care Team Providers Care Gun Striper Name Role Phone Km oWoten MD Unavailable [phone] Comfort Siddiqi APRN Primary Care Provider [phone] Encounter Details Date Type Department Care Team [...] documented as of this encounter Care Teams Gun Striper Relationship Specialty Start Date End Date Comfort Siddiqi APRN [address] [place] [address] PCP - General 03/12/25 Km Wooten MD 800 [facility] [address] [place] [address] Consulting Physician Radiation Oncology 02/14/25 documented as of this encounter
--- OUTSIDE RECORDS SUMMARY | 2025-06-13 03:48 | XMS_ITS | Encounter Summary ---
Author Organization Healthcare Address [address] [place] [address] Care Team Providers Care Bi Application Developer Name Role Phone Km Wooten MD Unavailable [phone] Comfort Siddiqi APRN Primary Care Provider [phone] Encounter Details Date Type Department Care Team (Late st Contact Info) Description 04/18/2025 Orders Only [facility] Radiation [id number] [place] [address] Radiation Oncology, Physician, [address] [place], [place] [id number] Social History Tobacco Use Types Packs/Day Years [...] ONCOLOGY Reference Point Dosage Given to Date 41.56065319 Gy [facility]A RADIATION ONCOLOGY Reference Point Session Dosage Given 1.53569065 Gy ARIA RADIATION ONCOLOGY Plan ID [id number] [...] documented as of this encounter Care Teams Bi Application Developer Relationship Specialty Start Date End Date Comfort SiddiqiTARUN [address] [place] [address] PCP - General 03/12/25 Km Wooten MD 800 [facility] [address] [place] [address] Consulting Physician Radiation Oncology 02/14/25 documented as of this encounter
--- OUTSIDE RECORDS SUMMARY | 2025-06-13 03:48 | XMS_ITS ---
Author Organization Unknown ENCOUNTERS Encounter Performer Location Date Diagnosis Diagnosis Status Emergency [facility] [address] [place] [facility] [address] [place] [address] [id number] Pre Admit [facility] [address] [place] [facility] [address] [place] [address] [id number] Emergency [facility] [address] [place] [facility] [address] [place] [address] [id number] RAFAELA Pre Admit [facility] [address] [place] [facility] [address] [place] [address] [id number] Emergency [facility] [address] [place] [facility] [address] [place] [address] [id number] RAFAELA Pre Admit [facility] [address] [place] [facility] [address] [place] [address] [id number] Pre Admit [facility] [address] [place] [address] [place] [address] [id number] Emergency [facility] [address] [place] [facility] [address] [place] [address] [id number] RAFAELA Pre Admit [facility] [address] [place] [facility] [address] [place] [address] [id number] Emergency [facility] [address] [place] [facility] [address] [place] [address] [id number] RAFAELA Pre Admit [facility] [address] [place] [facility] [address] [place] [address] [id number] Emergency [facility] [address] [place] [facility] [address] [place] [address] [phone] RAFAELA Pre Admit Shane Macias ([facility]) [facility] [address] [place] [facility] [address] [place] [address] [phone] Emergency Shane Macias ([facility]) [place] [address] [id number] [facility] [address] [place] [address] [id number] RAFAELA Pre Admit [facility] [address] [facility] [address] [place] [address] [phone] [facility] [address] [place] [address] [id number] RAFAELA Emergency Jose R Barahona [address] [place] [address] [phone] RAFAELA *Note: Encounters from your own facility or health system may be excluded. Allergies, Adverse Reactions, Alerts Allergen Type Severity Identification Date Medications Name Date Quantity Days Supplied GPI Number
--- OUTSIDE RECORDS SUMMARY | 2025-06-13 03:48 | XMS_ITS | Encounter Summary ---
Author Organization [facility] Address [address] [id number] Care Team Providers Care Credit Analysis Manager Name Role Phone Km Wooten MD Unavailable [phone] Comfort Siddiqi APRN Primary Care Provider [phone] Encounter Details Date Type Department Care Team [...] as of this encounter Care Teams Credit Analysis Manager Relationship Specialty Start Date End Date Comfort Siddiqi APRN [address] [place] [address] PCP - General 03/12/25 Km Wooten MD 800 [facility] [address] [place] [address] Consulting Physician Radiation Oncology 02/14/25 documented as of this encounter
--- OUTSIDE RECORDS SUMMARY | 2025-06-13 03:48 | XMS_ITS | Encounter Summary ---
Author Organization Healthcare Address [address] [place] [address] Care Team Providers Care Sightseeing Guide Name Role Phone Km Wooten MD Unavailable [phone] Comfort Siddiqi APRN Primary Care Provider [phone] Encounter Details Date Type Department Care Team (Late st Contact Info) Description 04/16/2025 Orders Only [facility] Rad[facility] [address] [id number] [place] [address] Radiation Oncology, Physician, [address] [place], [place] [id number] Social History Tobacco Use Types Packs/Day Years [...] ONCOLOGY Reference Point Dosage Given to Date [id number] Gy ARIA RADIATION ONCOLOGY Reference Point Session Dosage Given 1.20177169 Gy ARIA RADIATION ONCOLOGY Plan ID [id number] [...] documented as of this encounter Care Teams Sightseeing Guide Relationship Specialty Start Date End Date Comfort SiddiqiTARUN [address] [place] [address] PCP - General 03/12/25 Km Wooten MD 800 [facility] [address] [place] [address] Consulting Physician Radiation Oncology 02/14/25 documented as of this encounter
--- OUTSIDE RECORDS SUMMARY | 2025-06-13 03:48 | XMS_ITS | Encounter Summary ---
Author Organization Healthcare Address [address] [place] [address] Care Team Providers Care Beer Maker Name Role Phone Km Wooten MD Unavailable [phone] Comfort Siddiqi APRN Primary Care Provider [phone] Encounter Details Date Type Department Care Team (Late st Contact Info) Description 04/26/2025 Orders Only [facility] Radiation [address] [id number] [place] [address] Radiation Oncology, Physician, [address] [place], [place] [address] Social History Tobacco Use Types Packs/Day Years [...] documented as of this encounter Care Teams Beer Maker Relationship Specialty Start Date End Date Comfort Siddiqi APRN [address] [place] [address] PCP - General 03/12/25 Km Wooten MD [address] [address] Consulting Physician Radiation Oncology 02/14/25 documented as of this encounter
--- OUTSIDE RECORDS SUMMARY | 2025-06-13 03:48 | XMS_ITS | Encounter Summary ---
Author Organization Healthcare Address [address] [place] [address] Care Team Providers Care Manager Technical Training Name Role Phone Km Wooten MD Unavailable [phone] Comfort Siddiqi APRN Primary Care Provider [phone] Encounter Details Date Type Department Care Team (Late st Contact Info) Description 04/26/2025 Orders Only [facility] Radiation [address] [id number] [place] [address] Radiation Oncology, Physician, [address] [place], [place] [address] Social History Tobacco Use Types Packs/Day Years [...] ONCOLOGY Reference Point Dosage Given to Date [id number] 0001 Gy ARIA RADIATION ONCOLOGY Plan ID [...] as of this encounter Care Teams Manager Technical Training Relationship Specialty Start Date End Date Comfort Siddiqi APRN [address] [place] [address] PCP - General 03/12/25 Km Wooten MD 800 [facility] [address] [place] [address] Consulting Physician Radiation Oncology 02/14/25 documented as of this encounter
--- NOTE | 2025-06-13 06:19 | HMH.EDGENADL ---
Discharge Plan Disposition Patient Disposition: Home, Self-Care Condition: Good Prescriptions Prescriptions: No Action atorvastatin 20 mg tablet 20 mg PO DAILY Patient Comments: TAKE 1 TABLET BY MOUTH ONCE DAILY loperamide 2 mg capsule 2 mg PO Q2H PRN (Reason: diarrhea) Qty: 30 2RF Rx Instructions: TAKE 1 CAPSULE BY MOUTH EVERY 2 HOURS NEEDED FOR DIARRHEA; DO NOT EXCEED 16MG (8 CAPS) IN 24 HOURS prochlorperazine maleate [Compazine] 10 mg tablet 10 mg PO Q6H PRN (Reason: nausea and vomiting) Qty: 30 2RF ondansetron 8 mg tablet,disintegrating 8 mg PO Q8H Qty: 30 2RF Rx Instructions: TAKE 1 TAB (8MG) BY MOUTH DAYS 2 AND 3 AFTER CHEMO; TAKE 1 TAB BY MOUTH 8 HOURS NEEDED FOR NAUSEA AND VOMITING Clinical Impressions Clinical Impression: Encounter for care related to vascular access port Print Language Print Language: Afghan Discharge ED Provider: Alessandro Tony General Adult HPI General Chief complaint: Skin/Abscess/Foreign Body Stated complaint: port needle became dislodged in sleep Time Seen by Provider: 06/13/25 00:45 Mode of Arrival: Ambulatory Source of Information: Patient Description of Symptoms (Recalled from ER Triage Doc. by RN): Patient ambulatory to ED with complaints of blackwell needle becoming dislodged from left chest port in sleep approx 0030. Patient currently receiving chemo infusion from portable medication pump for Rectal cancer. Patient pump currenlty alarming for occlusion and will not flush at present. History of Present Illness HPI narrative: 55-year-old male with history of rectal cancer presents due to issue with his chemoinfusion pump. He has a port and has meds being infused but it became dislodged from his port tonight. No other complaints or concerns. Related Data Home Medications ?Medication ?Instructions ?Recorded ?Confirmed atorvastatin 20 mg tablet 20 mg PO DAILY 05/01/25 06/12/25 Previous Rx's ?Medication ?Instructions ?Recorded loperamide 2 mg capsule 2 mg PO Q2H PRN diarrhea #30 caps 05/30/25 ondansetron 8 mg disintegrating 8 mg PO Q8H #30 tabs 05/30/25 tablet prochlorperazine maleate 10 mg 10 mg PO Q6H PRN nausea and 05/30/25 tablet (Compazine) vomiting #30 tabs Allergies Allergy/AdvReac Type Severity Reaction Status Date / Time No Known Allergies Allergy Verified 06/12/25 10:09 [facility] Disclaimer: The information contained in this section may have been updated after the patient was seen, as this information can be updated by other users. 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 Dog bite Wound of abdomen Need for tetanus, diphtheria, and acellular pertussis (Tdap) vaccine Sinusitis Strep throat Encounter for removal of sutures Rectal cancer Hyperlipidemia Surgical History Hx of cholecystectomy Family History Mother H/O heart surgery Father H/O heart surgery Grandfather Diabetes Social History Smoking Status: Never smoker alcohol intake: never substance use type: denies use current occupational status: employed Travel in the last 8 weeks?: None Have you lived/traveled outside US in past 30 days?: No Contact w/someone who lives/traveled outside US past 30 days?: No Exposure to someone with infectious disease in past 14 days?: No Do you have a fever (greater than 100.4 F or 38 C)?: No Have you tested positive for COVID-19?: No Exposed to someone with COVID-19 in past 14 days?: No Do you have a sore throat?: No Do you have a cough?: No Do you have any weakness?: No Do you have any diarrhea?: No Are you experiencing any unusual bleeding?: No Do you have any muscle aches/pain?: No Do you have any abdominal pain?: No Are you experiencing loss of taste or smell?: No Other 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 Have you received the Pneumonia Vaccine: No ROS Obtained: Yes All systems reviewed & no additional complaints except as documented Physical Exam General General appearance: alert and in no apparent distress Head Head exam: atraumatic and normocephalic Eye Eye exam: Present normal appearance, PERRL and EOMI ENT ENT exam: Present normal oropharynx and normal external ear exam Neck Neck exam: Present normal inspection and full ROM Chest Chest inspection: Present normal inspection and symmetric chest wall rise; Absent tenderness Respiratory Respiratory exam: Present normal lung sounds bilaterally; Absent respiratory distress Cardiovascular Cardiovascular exam: Present regular rate and normal rhythm Abdominal Exam Abdominal exam: Present soft; Absent distention, tenderness or guarding Extremities Exam Extremities exam: Present normal inspection; Absent edema or joint swelling Back Exam Back exam: Present normal inspection; Absent tenderness Neurological Exam Neurological exam: Present alert and oriented X3; Absent motor sensory deficit Psychiatric Psychiatric exam: Present normal affect and normal mood Skin Skin exam: Present warm, dry and normal color Lymphatic Lymphatic Findings: no adenopathy Medical Decision Making Medical Records Medical records reviewed: Yes I reviewed the patient's medical records. Screening: Per USPSTF and CDC recommendations, given the prevalence of disease in our region, it is our hospital?s policy to screen for HIV and viral Hepatitis for all patients aged 18 and over and those with ongoing risk factors. Georgi Inquiry Pt receiving controlled substance: No Georgi was queried for this patient: No Vital Signs: 06/13/25 00:45 06/13/25 01:15 Temperature 98.0 F 98 F Temperature Source Oral Oral Pulse Rate 83 Pulse Rate [Left] 91 H Respiratory Rate 17 15 Blood Pressure 136/86 Blood Pressure [Right Arm] 168/89 H Blood Pressure Mean [Right Arm] 115 Blood Pressure Source Automatic Cuff Blood Pressure Source [Right Arm] Automatic Cuff Blood Pressure Position Sitting Blood Pressure Position [Right Arm] Sitting 02 Sat by Pulse Oximetry 98 Oxygen Delivery Method Room Air Room Air Lab Data Lab results reviewed: Yes I reviewed the patient's lab results. Medical Decision Narrative: 55-year-old male with history of rectal cancer presents for issues with his port. The area was cleaned and reaccessed by the nurses and his medication was restarted. He was discharged in stable condition. Return precautions given. Procedures Risk/Benefits of Procedure(s) Were Explained: Yes Critical Care Critical Care Time Critical Care Time: No
== END 2025-06-13 01:16 | disposition home or self-care (01) ==
LOC: ER 03:46
PROVIDERS: Emergency Provider Emergency Medicine; PCP Family Medicine
DX: Z45.2 Encounter for adjustment and management of vascular access device (principal)
CPT/HCPCS: 99282

== ENCOUNTER 2025-06-14 15:26 | Outpatient (CLI) | payer OTHER, SELFPAY ==
--- OUTSIDE RECORDS SUMMARY | 2025-04-15 07:33 | XMS_ITS | Encounter Summary ---
Author Organization [facility] Address [address] [id number] Care Team Providers Care Subgrade Tester Name Role Phone Km Wooten MD Unavailable [phone] oCmfort Siddiqi APRN Primary Care Provider [phone] Encounter Details Date Type Department Care Team (Latest Contact Info) Description 04/15/2025 8:33 AM EDT - 04/15/2025 1:26 PM EDT Hospital Encounter [facility] [address] [id number] [place] [address] Discharge Disposition: Still a Patient Social History [...] documented as of this encounter Care Teams Subgrade Tester Relationship Specialty Start Date End Date Comfort Siddiqi APRN [address] [place] [address] PCP - General 03/12/25 Km Wooten MD [address] [facility] C[address]D [place] [address] Consulting Physician Radiation Oncology 02/14/25 documented as of this encounter
--- OUTSIDE RECORDS SUMMARY | 2025-04-15 12:27 | XMS_ITS | Encounter Summary ---
Author Organization Healthcare Address [address] [id number] Care Team Providers Care Brim Cutter Name Role Phone Km Wooten MD Unavailable [phone] Comfort Siddiqi APRN Primary Care Provider [phone] Encounter Details Date Type Department Care Team (Latest Contact Info) Description 04/15/2025 1:27 PM EDT - 04/15/2025 11:59 PM EDT Hospital Encounter [facility] [address] [id number] [place] [address] Discharge Disposition: Still a Patient Social History [...] documented as of this encounter Care Teams Brim Cutter Relationship Specialty Start Date End Date Comfort Siddiqi APRN [address] [place] [address] PCP - General 03/12/25 Km Wooten MD [address] [facility] C114D [place] [address] Consulting Physician Radiation Oncology 02/14/25 documented as of this encounter
--- OUTSIDE RECORDS SUMMARY | 2025-04-16 12:28 | XMS_ITS | Encounter Summary ---
Author Organization Healthcare Address [address] [id number] Care Team Providers Care Hammer Runner Name Role Phone Km Wooten MD Unavailable [phone] Comfort Siddiqi APRN Primary Care Provider [phone] Encounter Details Date Type Department Care Team (Latest Contact Info) Description 04/16/2025 1:28 PM EDT - 04/16/2025 11:59 PM EDT Hospital Encounter [facility] [address] [id number] [place] [address] Discharge Disposition: Still a Patient Social History [...] documented as of this encounter Care Teams Hammer Runner Relationship Specialty Start Date End Date Comfort Siddiqi APRN [address] [place] [address] PCP - General 03/12/25 Km Wooten MD 800 [address] [facility] C114D [place] [address] Consulting Physician Radiation Oncology 02/14/25 documented as of this encounter
--- OUTSIDE RECORDS SUMMARY | 2025-04-17 12:52 | XMS_ITS | Encounter Summary ---
Author Organization [facility] Address [address] [id number] Care Team Providers Care Hydrochloric Area Supervisor Name Role Phone Km Wooten MD Unavailable [phone] Comfort Siddiqi APRN Primary Care Provider [phone] Encounter Details Date Type Department Care Team (Latest Contact Info) Description 04/17/2025 1:52 PM EDT - 04/17/2025 11:59 PM EDT Hospital Encounter [facility] [address] [id number] [place] [address] Discharge Disposition: Still a Patient Social History [...] documented as of this encounter Care Teams Hydrochloric Area Supervisor Relationship Specialty Start Date End Date Comfort Siddiqi APRN [address] [place] [address] PCP - General 03/12/25 Km Wooten MD 800 [address] [facility] C114D [place] [address] Consulting Physician Radiation Oncology 02/14/25 documented as of this encounter
--- OUTSIDE RECORDS SUMMARY | 2025-04-18 12:36 | XMS_ITS | Encounter Summary ---
Author Organization [facility] Address [address] [id number] Care Team Providers Care Housing Grant Analyst Name Role Phone Km Wooten MD Unavailable [phone] Comfort Siddiqi APRN Primary Care Provider [phone] Encounter Details Date Type Department Care Team (Latest Contact Info) Description 04/18/2025 1:36 PM EDT - 04/18/2025 2:02 PM EDT Hospital Encounter [facility] [address] [id number] [place] [address] Discharge Disposition: Still a Patient Social History [...] documented as of this encounter Care Teams Housing Grant Analyst Relationship Specialty Start Date End Date Comfort Siddiqi APRN [address] [place] [address] PCP - General 03/12/25 Km Wooten MD [address] [facility] C114D [place] [address] Consulting Physician Radiation Oncology 02/14/25 documented as of this encounter
--- OUTSIDE RECORDS SUMMARY | 2025-04-18 13:03 | XMS_ITS | Encounter Summary ---
Author Organization [facility] Address [address] [place] [id number] Care Team Providers Care Inbound Sales Advisor Name Role Phone Km Wooten MD Unavailable [phone] Comfort Siddiqi APRN Primary Care Provider [phone] Reason for Visit * Reason Comments OTV Encounter Details Date Type Department Care Team (Latest Contact Info) Description 04/18/2025 2:03 PM EDT - 04/18/2025 11:59 PM EDT Hospital Encounter [facility] Radiation [address] [id number] [place] [address] Km Wooten MD [address] [place] [address] Malignant neoplasm of rectum (CMS/HCC) (Primary Dx) [...] Tripp is a 55 y.o. male with [id number] lower rectal adenocarcinoma receiving induction chemoradiation Radiation [...] Radiation Oncology [facility] Pager: [phone] Cosigned by Km Wooten MD at 04/18/2025 [...] documented as of this encounter Care Teams Inbound Sales Advisor Relationship Specialty Start Date End Date Comfort Siddiqi APRN [address] [place] [address] PCP - General 03/12/25 Km Wooten MD 800 [facility] C[address] [place] [address] Consulting Physician Radiation Oncology 02/14/25 documented as of this encounter
--- OUTSIDE RECORDS SUMMARY | 2025-04-19 12:42 | XMS_ITS | Encounter Summary ---
Author Organization Healthcare Address [address] [id number] Care Team Providers Care Police Chief Deputy Name Role Phone Km Wooten MD Unavailable [phone] Comfort Siddiqi APRN Primary Care Provider [phone] Encounter Details Date Type Department Care Team (Latest Contact Info) Description 04/19/2025 1:42 PM EDT - 04/19/2025 11:59 PM EDT Hospital Encounter [facility] [address] [id number] [place] [address] Discharge Disposition: Still a Patient Social History [...] documented as of this encounter Care Teams Police Chief Deputy Relationship Specialty Start Date End Date Comfort Siddiqi APRN [address] [place] [address] PCP - General 03/12/25 Km Wooten MD [address] [facility] [address] [place] [address] Consulting Physician Radiation Oncology 02/14/25 documented as of this encounter
--- OUTSIDE RECORDS SUMMARY | 2025-04-22 07:10 | XMS_ITS | Encounter Summary ---
Author Organization Healthcare Address [address] [id number] Care Team Providers Care Lye Treater Name Role Phone Km Wooten MD Unavailable [phone] Comfort Siddiqi APRN Primary Care Provider [phone] Encounter Details Date Type Department Care Team (Latest Contact Info) Description 04/22/2025 8:10 AM EDT - 04/22/2025 1:39 PM EDT Hospital Encounter [facility] [address] [id number] [place] [address] Discharge Disposition: Still a Patient Social History [...] documented as of this encounter Care Teams Lye Treater Relationship Specialty Start Date End Date Comfort Siddiqi APRN [address] [place] [address] PCP - General 03/12/25 Km Wooten MD [address] [facility] [address] [place] [address] Consulting Physician Radiation Oncology 02/14/25 documented as of this encounter
--- OUTSIDE RECORDS SUMMARY | 2025-04-22 12:40 | XMS_ITS | Encounter Summary ---
Author Organization Healthcare Address [address] [id number] Care Team Providers Care Deli Slicer Name Role Phone Km Wooten MD Unavailable [phone] Comfort Siddiqi APRN Primary Care Provider [phone] Encounter Details Date Type Department Care Team (Latest Contact Info) Description 04/22/2025 1:40 PM EDT - 04/22/2025 11:59 PM EDT Hospital Encounter [facility] [address] [id number] [place] [address] Discharge Disposition: Still a Patient Social History [...] documented as of this encounter Care Teams Deli Slicer Relationship Specialty Start Date End Date Comfort Siddiqi APRN [address] [place] [address] PCP - General 03/12/25 Km Wooten MD [address] [facility] [address] [place] [address] Consulting Physician Radiation Oncology 02/14/25 documented as of this encounter
--- OUTSIDE RECORDS SUMMARY | 2025-04-23 12:48 | XMS_ITS | Encounter Summary ---
Author Organization Healthcare Address [address] [id number] Care Team Providers Care Sales Order Processor Name Role Phone Km Wooten MD Unavailable [phone] Comfort Siddiqi APRN Primary Care Provider [phone] Encounter Details Date Type Department Care Team (Latest Contact Info) Description 04/23/2025 1:48 PM EDT - 04/23/2025 11:59 PM EDT Hospital Encounter [facility] [id number] [place] [address] Discharge Disposition: Still a Patient Social History [...] as of this encounter Care Teams Sales Order Processor Relationship Specialty Start Date End Date Comfort Siddiqi APRN [address] [place] [address] PCP - General 03/12/25 Km Wooten MD [address] [facility] [address] [place] [address] Consulting Physician Radiation Oncology 02/14/25 documented as of this encounter
--- OUTSIDE RECORDS SUMMARY | 2025-04-24 12:41 | XMS_ITS | Encounter Summary ---
Author Organization [facility] Address [address] [id number] Care Team Providers Care Prenatal Teacher Name Role Phone Km Wooten MD Unavailable [phone] Comfort Siddiqi APRN Primary Care Provider [phone] Encounter Details Date Type Department Care Team (Latest Contact Info) Description 04/24/2025 1:41 PM EDT - 04/24/2025 11:59 PM EDT Hospital Encounter [facility] [id number] [place] [address] Discharge Disposition: Still a Patient Social History [...] documented as of this encounter Care Teams Prenatal Teacher Relationship Specialty Start Date End Date Comfort Siddiqi APRN [address] [place] [address] PCP - General 03/12/25 Km Wooten MD [address] [facility] [address] [place] [address] Consulting Physician Radiation Oncology 02/14/25 documented as of this encounter
--- OUTSIDE RECORDS SUMMARY | 2025-04-29 08:39 | XMS_ITS | Encounter Summary ---
Author Organization Healthcare Address [address] [id number] Care Team Providers Care Die Maker Stamping Name Role Phone Km Wooten MD Unavailable [phone] Comfort Siddiqi APRN Primary Care Provider [phone] Encounter Details Date Type Department Care Team (Latest Contact Info) Description 04/29/2025 8:39 AM EST - 04/29/2025 11:59 PM [facility] Hospital Encounter PAV CC Radiation [address] [id number] [place] [address] Discharge Disposition: Still a Patient Social History [...] as of this encounter Care Teams Die Maker Stamping Relationship Specialty Start Date End Date Comfort Siddiqi APRN [address] [place] [address] PCP - General 03/12/25 Km Wooten MD [address] [facility] C[address] [place] [address] Consulting Physician Radiation Oncology 02/14/25 documented as of this encounter
--- OUTSIDE RECORDS SUMMARY | 2025-05-27 13:28 | XMS_ITS | Encounter Summary ---
Author Organization [facility] Address [address] [id number] Care Team Providers Care Dispatcher Clerk Name Role Phone Km Wooten MD Unavailable [phone] Comfort Siddiqi APRN Primary Care Provider [phone] Reason for Visit * Reason Comments Follow-up Encounter Details Date Type Department Care Team (Latest Contact Info) Description 05/27/2025 1:28 PM EST - 05/27/2025 11:59 PM EST Hospital Encounter [facility] Rad[facility] [id number] [place] [address] Marci Gonzalez CHANNEL MACHINE OPERATOR [address] [place] [address] Malignant neoplasm of rectum (CMS/HCC) (Primary Dx) Discharge Disposition: Still a Patient Social History Tobacco Use Types Packs/Day Years Used Date Smoking Tobacco: Never Smokeless Tobacco: Never Alcohol Use Standard Drinks/Week Comments Not Currently 0 (1 standard drink = 0.6 oz [...] Sign Reading Time Taken Comments Blood Pressure 129/80 05/27/2025 1:37 PM EST Pulse 89 05/27/2025 1:37 PM EST Temperature - - Respiratory Rate 16 05/27/2025 1:37 PM EST Oxygen Saturation 96% 05/27/2025 1:37 PM EST Inhaled Oxygen Concentration - - Weight 129 kg (283 lb 15.2 oz) 05/27/2025 1:37 P M EST Height - - Body Mass Index 45.83 03/12/2025 9:47 AM EDT documented in this [...] spray(s) in each nostril once daily 02/14/2025 documented as of this encounter Miscellaneous Notes * Progress Notes - Marci Gonzalez, CHANNEL MACHINE OPERATOR - 05/27/2025 2:20 PM EST [facility] RADIATION MEDICINE RADIATION ONCOLOGY CHANNEL MACHINE OPERATOR FOLLOW UP NOTE Carlos Tripp is a 55 y.o. male with a diagnosis of colon cancer who returns today for scheduled follow-up. Cancer Staging Malignant neoplasm of rectum (CMS/HCC) Staging form: Colon and Rectum, AJCC 8th Edition - Clinical: Stage IIIB (cT3, cN2a, cM0) - Unsigned Adenocarcinoma of the lower rectum Referring Physician: Jean Sumner MD - Colorectal Surgery Radiation Oncologist: Km Wooten MD RADIATION THERAPY (XRT): Treatment Site: Rectum and at risk regional lymphatics Total Dose: 5000cGy in 25 fractions VMAT daily Date XRT completed: 03/21/2025-04/24/2025 HISTORY OF PRESENT ILLNESS: Carlos Tripp is a 55 y.o. male with history of lower rectum adenoca, Stage III cT3 cN2a [id number] 02/05/25, now one month status post neoadjuvant chemoradiation (Xeloda). He did well with radiotherapy and presents for scheduled one month follow up. Oncologic History: Reports a 4-5 year history of blood in his stool, increase in symptoms prompting colonoscopy on 02/05/2025, ultimately diagnosed with moderately differentiated adenocarcinoma. 02/28/2025: CT chest on showed lymph nodes that were in the upper limit of normal; ULTRASOUND-GUIDED FINE NEEDLE ASPIRATION: NO EVIDENCE OF MALIGNANCY, HEMODILUTE LYMPHOID TISSUE. Interval History: Feeling well today without complaints. Denies abdomenal pain, did have some diarrhea which has resolved. No changes to urinary status. No nausea. Good appetite and energy level. Wastreated locally for localized, to groin, fungal infection. Had mild radiation dermatitis-resolved. Follows with Dr. Kaleb Bill Medical Oncology at [facility] in [place]. Review of Systems Constitutional: Negative for activity change, fatigue, fever and unexpected weight change. HENT: Negative. Eyes: Negative. Respiratory: Negative. Gastrointestinal: Negative for abdominal pain, blood in stool, constipation, diarrhea, nausea, rectal pain and vomiting. Endocrine: Negative. Genitourinary: Negative for difficulty urinating, frequency and urgency. Skin: Positive for color change. Negative for rash. Neurological: Negative. Hematological: Negative. Psychiatric/Behavioral: Negative. KPS: 90 Past Medical, Surgical, and Family History: I have reviewed Mr. Tripp's medical, surgical and other pertinent history; unchanged from most recent clinic visit or updated as indicated in HPI. Social History[1] Medications: Current Outpatient Medications Medication Instructions atorvastatin (LIPITOR) 20 mg, Daily capecitabine (Xeloda) 500 MG chemo tablet 4 tablets, 2 times daily fluticasone (Flonase) 50 MCG/ACT nasal spray use 1 spray(s) in each nostril once daily Allergies: Patient has no known allergies. Physical Exam: Vital Signs: Visit Vitals BP 129/80 Pulse 89 Resp 16 Wt 129 kg (283 lb 15.2 oz) SpO2 96% BMI 45.83 kg/m?? Smoking Status Never BSA 2.45 m?? Wt Readings from Last 3 Encounters: 05/27/25 129 kg (283 lb 15.2 oz) 04/18/25 124 kg (274 lb 0.5 oz) 04/11/25 124 kg (272 lb 4.3 oz) Physical Exam Patient appears comfortable, well groomed, seated in NAD Vitals reviewed. General: No swelling. Normal range of motion. Skin: General: Skin is warm. Findings: No erythema. Neurological: General: No focal deficit present. Mental Status: He is alert and oriented to person, place, and time. Musculoskeletal: No TTP midline, anterior/posterior ribs, or bilateral femurs Psychiatric: Mood and Affect: Mood normal. Behavior: Behavior normal. Appropriate questions No obvious adenopathy in neck No back pain or other palpable pain No crackles, wheezes or respiratory distress No peripheral edema Strength/sensation of extremities appears normal, self ambulatory DATA: Radiographic Studies: no new pertinent imaging for review PATHOLOGY: no new ASSESSMENT AND PLAN In summary, Carlos Tripp is a 55 y.o. 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 He tolerated treatment well overall. At today???s visit, he reports feeling well without ongoing gastrointestinal or urinary complaints. Prior treatment-related diarrhea and mild radiation dermatitis have resolved. No abdominal pain, nausea, or systemic symptoms. Recent localized groin fungal infection was treated successfully. No new concerning clinical findings on exam. He continues medical oncology follow-up with Dr. Kaleb Bill, with planning for systemic ch emotherapy in next few weeks. Today I reviewed that following the completion of radiation therapy, a follow-up appointment is scheduled at one month to assess for any late or ongoing treatment-related toxicities, side effects, orconcerns. This visit does not include surveillance imaging, as the primary focus is on clinical evaluation and symptom review. Sequelae of treatment: dermatitis and tinea cruris-now resolved Follow-up plan: We discussed his follow up plan moving forward and since Mr. Tripp is currently being followed by local Medical Oncology (Armen Santos), no scheduled follow up is needed at this time with our clinic. Patient is in agreement with this plan and encouraged to schedule and attend all recommended follow-up visits with the respective specialty providers. I believe all of his questions were answered. He knows to call with questions or concerns. Mr Tripp verbalized understanding of visit discussion, education, and instructions, and is in agreement with the plan of care listed above. I personally spent a total of 20 minutes on this encounter. This time includes face to face with patient, counseling and discussion and/or coordination of care. Please do not hesitate to contact our office if you have any questions or need further assistance regarding follow-up care. Marci Gonzalez RN, MSN, COMMERCIAL INSTRUCTOR SUPERVISOR-C, Nurse Practitioner Radiation Oncology [1] Social History Tobacco Use Smoking status: Never Smokeless tobacco: Never Vaping Use Vaping status: Never Used Substance Use Topics Alcohol use: Not Currently Comment: Rarely Drug use: Never documented in this encounter Plan of Treatment [...] has been complete d for the patient 05/27/2025 1:37 PM EST A Body Mass Index follow-up plan has been documented for the patient 03/15/2025 11:31 AM EDT documented as of this encounter Care Teams Dispatcher Clerk Relationship Specialty Start Date End Date Comfort Siddiqi APRN [address] [place] [address] PCP - General 03/12/25 Km Wooten MD [address] [facility] [address] [place] [address] Consulting Physician Radiation Oncology 02/14/25 documented as of this encounter
--- OUTSIDE RECORDS SUMMARY | 2025-06-14 15:29 | XMS_ITS | Encounter Summary ---
Author Organization Healthcare Address [address] [place] [address] Care Team Providers Care Screen Cutter And Trimmer Name Role Phone Km Wooten MD Unavailable [phone] Comfort Siddiqi APRN Primary Care Provider [phone] Encounter Details Date Type Department Care Team (Late st Contact Info) Description 04/19/2025 Orders Only [facility] Radiation [id number] [place] [address] Radiation Oncology, Physician, [address] [place], [place] [id number] Social History Tobacco Use Types Packs/Day Years [...] ONCOLOGY Reference Point Dosage Given to Date 43.12252379 Gy ARIA RADIATION ONCOLOGY Reference Point Session Dosage Given 1.53419842 Gy ARIA RADIATION ONCOLOGY Plan ID [id number] [...] documented as of this encounter Care Teams Screen Cutter And Trimmer Relationship Specialty Start Date End Date Comfort SiddiqiTARUN [address] [place] [address] PCP - General 03/12/25 Km Wooten MD [address] [facility] [address] [place] [address] Consulting Physician Radiation Oncology 02/14/25 documented as of this encounter
--- OUTSIDE RECORDS SUMMARY | 2025-06-14 15:29 | XMS_ITS | Encounter Summary ---
Author Organization Healthcare Address [address] [place] [address] Care Team Providers Care Door To Door Salesperson Name Role Phone Km Wooten MD Unavailable [phone] Comfort Siddiqi APRN Primary Care Provider [phone] Encounter Details Date Type Department Care Team (Late st Contact Info) Description 04/22/2025 Orders Only [facility] Radiation [address] [id number] [place] [address] Radiation Oncology, Physician, [address] [place], [place] [id number] Social History Tobacco Use Types Packs/Day Years [...] ONCOLOGY Reference Point Dosage Given to Date 45.817370729 0001 Gy ARIA RADIATION ONCOLOGY Reference Point Session Dosage Given 1.04920897 Gy ARIA RADIATION ONCOLOGY Plan ID [id number] [...] documented as of this encounter Care Teams Door To Door Salesperson Relationship Specialty Start Date End Date Comfort SiddiqiTARUN [address] [place] [address] PCP - General 03/12/25 Km Wooten MD [id number] [place] [address] Consulting Physician Radiation Oncology 02/14/25 documented as of this encounter
--- OUTSIDE RECORDS SUMMARY | 2025-06-14 15:29 | XMS_ITS | Encounter Summary ---
Author Organization Healthcare Address [address] [place] [address] Care Team Providers Care Computer Science Professor Name Role Phone Km Wooten MD Unavailable [phone] Comfort Siddiqi APRN Primary Care Provider [phone] Encounter Details Date Type Department Care Team (Late st Contact Info) Description 04/23/2025 Orders Only [facility] Radiation [address] [id number] [address] Radiation Oncology, Physician, [address] [place], [place] [address] Social History Tobacco Use Types Packs/Day Years [...] ONCOLOGY Reference Point Dosage Given to Date 47.201893303 0001 Gy ARIA RADIATION ONCOLOGY Reference Point Session Dosage Given 1.41132335 Gy ARIA RADIATION ONCOLOGY Plan ID [id number] [...] as of this encounter Care Teams Computer Science Professor Relationship Specialty Start Date End Date Comfort SiddiqiTRAUN [address] [place] [address] PCP - General 03/12/25 Km Wooten MD [address] [address] Consulting Physician Radiation Oncology 02/14/25 documented as of this encounter
--- OUTSIDE RECORDS SUMMARY | 2025-06-14 15:29 | XMS_ITS | Encounter Summary ---
Author Organization [facility] Address [address] [id number] Care Team Providers Care Instrument/Control Technician Name Role Phone Km Wooten MD Unavailable [phone] Comfort Siddiqi APRN Primary Care Provider [phone] Encounter Details Date Type Department Care Team [...] documented as of this encounter Care Teams Instrument/Control Technician Relationship Specialty Start Date End Date Comfort Siddiqi APRN [address] [place] [address] PCP - General 03/12/25 Km Wooten MD 800 [facility] [address] [place] [address] Consulting Physician Radiation Oncology 02/14/25 documented as of this encounter
--- OUTSIDE RECORDS SUMMARY | 2025-06-14 15:30 | XMS_ITS | Encounter Summary ---
Author Organization Healthcare Address [address] [place] [address] Care Team Providers Care Cafe Lead Name Role Phone Km Wooten MD Unavailable [phone] Comfort Siddiqi APRN Primary Care Provider [phone] Encounter Details Date Type Department Care Team (Late st Contact Info) Description 04/16/2025 Orders Only [facility] Radiation [address] [id number] [place] [address] Radiation Oncology, Physician, [address] [place], [place] [id number] Social History Tobacco Use Types Packs/Day Years [...] ONCOLOGY Reference Point Dosage Given to Date 37.36830588 Gy ARIA RADIATION ONCOLOGY Reference Point Session Dosage Given 1.38996083 Gy ARIA RADIATION ONCOLOGY Plan ID [id number] [...] documented as of this encounter Care Teams Cafe Lead Relationship Specialty Start Date End Date Comfort SiddiqiTARUN [address] [place] [address] PCP - General 03/12/25 Km Wooten MD 800 [facility] [address] [place] [address] Consulting Physician Radiation Oncology 02/14/25 documented as of this encounter
--- OUTSIDE RECORDS SUMMARY | 2025-06-14 15:30 | XMS_ITS | Encounter Summary ---
Author Organization [facility] Address [address] [id number] Care Team Providers Care Armature Repairer Name Role Phone Km Wooten MD Unavailable [phone] Comfort Siddiqi APRN Primary Care Provider [phone] Encounter Details Date Type Department Care Team [...] documented as of this encounter Care Teams Armature Repairer Relationship Specialty Start Date End Date Comfort Siddiqi APRN [address] [place] [address] PCP - General 03/12/25 Km Wooten MD 800 [facility] [address] [place] [address] Consulting Physician Radiation Oncology 02/14/25 documented as of this encounter
--- OUTSIDE RECORDS SUMMARY | 2025-06-14 15:30 | XMS_ITS ---
Author Organization Unknown ENCOUNTERS Encounter Performer Location Date Diagnosis Diagnosis Status Emergency [facility] [address] [place] [facility] [address] [place] [address] [id number] RAFAELA Pre Admit [facility] [address] [place] [facility] [address] [place] [address] [id number] Emergency [facility] [address] [place] [facility] [address] [place] [address] [id number] RAFAELA Pre Admit [facility] [address] [place] [facility] [address] [place] [address] [id number] Emergency [facility] [address] [place] [facility] [address] [place] [address] [id number] RAFAELA Pre Admit [facility] [address] [place] [facility] [address] [place] [address] [id number] Pre Admit [facility] [address] [place] [facility] [address] [place] [address] [id number] Emergency [facility] [address] [place] [facility] [address] [place] [address] [id number] RAFAELA Pre Admit [facility] [address] [place] [facility] [address] [place] [address] [id number] Emergency [facility] [address] [place] [facility] [address] [place] [address] [id number] RAFAELA [facility] Ad[facility] [address] [place] [facility] [address] [place] [address] [id number] Emergency [facility] [address] [place] [facility] [address] [place] [address] [id number] RAFAELA Pre Admit Shane Macias ([facility] [address] [place] [facility] [address] [place] [address] [id number] Emergency Shane Macias ([facility] [address] [facility] [address] [place] [address] [id number] RAFAELA Pre Admit [facility] [address] [facility] [address] [place] [address] [id number] Emergency [address] [place] [address] [id number] RAFAELA Emergency Jose R Barahona [address] [place] [address] [id number] RAFAELA *Note: Encounters from your own facility or health system may be excluded. Allergies, Adverse Reactions, Alerts Allergen Type Severity Identification Date Medications Name Date Quantity Days Supplied GPI Number
--- OUTSIDE RECORDS SUMMARY | 2025-06-14 15:30 | XMS_ITS | Encounter Summary ---
Author Organization Healthcare Address [address] [place] [address] Care Team Providers Care Smoke Chaser Name Role Phone Km Wooten MD Unavailable [phone] Comfort Siddiqi APRN Primary Care Provider [phone] Encounter Details Date Type Department Care Team (Late st Contact Info) Description 04/24/2025 Orders Only [facility] Radiation [id number] [place] [address] Radiation Oncology, Physician, [address] [place], [place] [phone] Social History Tobacco Use Types Packs/Day Years [...] ONCOLOGY Reference Point Dosage Given to Date 49.797610264 0001 Gy ARIA RADIATION ONCOLOGY Reference Point Session Dosage Given 1.93425053 Gy ARIA RADIATION ONCOLOGY Plan ID [id number] [...] documented as of this encounter Care Teams Smoke Chaser Relationship Specialty Start Date End Date Comfort SiddiqiTARUN [address] [place] [address] PCP - General 03/12/25 Km Wooten MD [id number] [place] [address] Consulting Physician Radiation Oncology 02/14/25 documented as of this encounter
--- OUTSIDE RECORDS SUMMARY | 2025-06-14 15:30 | XMS_ITS | Encounter Summary ---
Author Organization Healthcare Address [address] [place] [address] Care Team Providers Care Project Management Instructor Name Role Phone Km Wooten MD Unavailable [phone] Comfort Siddiqi APRN Primary Care Provider [phone] Encounter Details Date Type Department Care Team (Late st Contact Info) Description 04/17/2025 Orders Only [facility] Radiation [address] [id number] [place] [address] Radiation Oncology, Physician, [address] [place], [place] [address] Social History Tobacco Use Types Packs/Day Years [...] ONCOLOGY Reference Point Dosage Given to Date 39.9905829 Gy ARIA RADIATION ONCOLOGY Reference Point Session Dosage Given 1.94566313 Gy ARIA RADIATION ONCOLOGY Plan ID [id number] [...] documented as of this encounter Care Teams Project Management Instructor Relationship Specialty Start Date End Date Devang ComfortTARUN [address] [place] [address] PCP - General 03/12/25 Km Wooten MD [id number] [place] [address] Consulting Physician Radiation Oncology 02/14/25 documented as of this encounter
--- OUTSIDE RECORDS SUMMARY | 2025-06-14 15:30 | XMS_ITS ---
Author Organization [facility] Address [address] [place] [address] Care Team Providers Care Quality Inspector Name Role Phone Km Wooten MD Unavailable [phone] Comfort Siddiqi APRN Primary Care Provider [phone] Active Problems Problem Noted Date Diagnosed Date [...]
--- OUTSIDE RECORDS SUMMARY | 2025-06-14 15:30 | XMS_ITS | Encounter Summary ---
Author Organization [facility] Address [address] [place] [address] Care Team Providers Care Structural Architect Name Role Phone Tejal Saeed APRN Primary Care Provider [phone] Km Wooten MD Unavailable [phone] Comfort Siddiqi APRN Primary Care Provider [phone] Encounter Details Date Type Department Care Team (Late st Contact Info) Description 01/08/2025 Orders Only External Location [address] [place] [address] Provider, External Social History Tobacco Use Types [...] on filedocumented in this encounter Care Teams Structural Architect Relationship Specialty Start Date End Date Tejal Saeed APRN [address] [place] [address] PCP - General 11/07/20 03/11/25 Comfort Siddiqi APRN [address] [place] [address] PCP - General 03/12/25 Km Wooten MD 800 [facility] [address] [place] [address] Consulting Physician Radiation Oncology 02/14/25 documented as of this encounter
--- OUTSIDE RECORDS SUMMARY | 2025-06-14 15:30 | XMS_ITS | Clinical Summary ---
Author Organization [facility] Address [address] [place] [address] Care Team Providers Care Wreath Machine Tender Name Role Phone Km Wooten MD Unavailable [phone] Comfort Siddiqi APRN Primary Care Provider [phone] Allergies No known active allergies Medications atorvastatin [...] Hospital Encounter [facility] [address] [phone] Marci Gonzalez, BRILLIANDEER LOPPER Malignant neoplasm of rectum (CMS/HCC) (Primary Dx) Discharge Disposition: Still a Patient 05/27/2025 Travel 05/20/2025 Travel 04/29/2025 8:39 AM EST - 04/29/2025 11:59 PM EST Hospital Encounter [facility] [address] [phone] Discharge Disposition: Still a Patient 04/29/2025 Travel 04/26/2025 Orders Only [facility] [address] [phone] Radiation Oncology, PhysicianMD 04/26/2025 Orders Only [facility] [address] [phone] Radiation Oncology, PhysicianMD 04/24/2025 1:41 PM EDT - 04/24/2025 11:59 PM EDT Hospital Encounter [facility] [address] [phone] Discharge Disposition: Still a Patient 04/24/2025 Orders Only [facility] [address] [address] Radiation Oncology, PhysicianMD 04/23/2025 1:48 PM EDT - 04/23/2025 11:59 PM EDT Hospital Encounter [facility] [address] [address] Discharge Disposition: Still a Patient 04/23/2025 Orders Only [facility] [address] [phone] Radiation Oncology, PhysicianMD 04/22/2025 1:40 PM EDT - 04/22/2025 11:59 PM EDT Hospital Encounter [facility] [address] [address] Discharge Disposition: Still a Patient 04/22/2025 8:10 AM EDT - 04/22/2025 1:39 PM EDT Hospital Encounter [facility] [address] [address] Discharge Disposition: Still a Patient 04/22/2025 Orders Only [facility] [address] [phone] Radiation Oncology, PhysicianMD 04/22/2025 Travel 04/19/2025 1:42 PM EDT - 04/19/2025 11:59 PM EDT Hospital Encounter [facility] [address] [address] Discharge Disposition: Still a Patient 04/19/2025 Orders Only [facility] [address] [phone] Radiation Oncology, PhysicianMD 04/18/2025 2:03 PM EDT - 04/18/2025 11:59 PM EDT Hospital Encounter [facility] [address] [address] Km Wooten MD Malignant neoplasm of rectum (CMS/HCC) (Primary Dx) Discharge Disposition: Still a Patient 04/18/2025 1:36 PM EDT - 04/18/2025 2:02 PM EDT Hospital Encounter [facility] [address] [phone] Discharge Disposition: Still a Patient 04/18/2025 Orders Only [facility] [address] [phone] Radiation Oncology, PhysicianMD 04/17/2025 1:52 PM EDT - 04/17/2025 11:59 PM EDT Hospital Encounter [facility] [address] [address] Discharge Disposition: Still a Patient 04/17/2025 Orders Only [facility] [address] [phone] Radiation Oncology, PhysicianMD 04/16/2025 1:28 PM EDT - 04/16/2025 11:59 PM EDT Hospital Encounter [facility] [address] [address] Discharge Disposition: Still a Patient 04/16/2025 Orders Only [facility] [address] [phone] Radiation Oncology, PhysicianMD 04/15/2025 1:27 PM EDT - 04/15/2025 11:59 PM EDT Hospital Encounter [facility] [address] [address] Discharge Disposition: Still a Patient 04/15/2025 8:33 AM EDT - 04/15/2025 1:26 PM EDT Hospital Encounter [facility] [address] [phone] Discharge Disposition: Still a Patient 04/15/2025 Orders Only [facility] [address] [phone] Radiation Oncology, Physician, 04/15/2025 Travel 04/12/2025 1:42 PM EDT - 04/12/2025 11:59 PM EDT Hospital Encounter [facility] [address] [address] Discharge Disposition: Still a Patient 04/12/2025 Orders Only [facility] [address] [phone] Radiation Oncology, PhysicianMD 04/11/2025 1:50 PM EDT - 04/11/2025 11:59 PM EDT Hospital Encounter [facility] [address] [phone] Km Wooten MD Malignant neoplasm of rectum (CMS/HCC) (Primary Dx) Discharge Disposition: Still a Patient 04/11/2025 1:31 PM EDT - 04/11/2025 1:49 PM EDT Hospital Encounter [facility] [address] [phone] Discharge Disposition: Still a Patient 04/11/2025 Orders Only [facility] [address] [phone] Radiation Oncology, PhysicianMD 04/10/2025 1:31 PM EDT - 04/10/2025 11:59 PM EDT Hospital Encounter [facility] [address] [address] Discharge Disposition: Still a Patient 04/10/2025 Orders Only [facility] [address] [address] Radiation Oncology, PhysicianMD 04/09/2025 1:45 PM EDT - 04/09/2025 11:59 PM EDT Hospital Encounter [facility] [address] [address] Discharge Disposition: Still a Patient 04/09/2025 Orders Only [facility] [address] [address] Radiation Oncology, PhysicianMD 04/08/2025 1:38 PM EDT - 04/08/2025 11:59 PM EDT Hospital Encounter [facility] [address] [address] Discharge Disposition: Still a Patient 04/08/2025 5:30 AM EDT - 04/08/2025 1:37 PM EDT Hospital Encounter [facility] [address] [address] Discharge Disposition: Still a Patient 04/08/2025 Orders Only [facility] [address] [address] Radiation Oncology, PhysicianMD 04/08/2025 Travel 04/05/2025 2:06 PM EDT - 04/05/2025 11:59 PM EDT Hospital Encounter [facility] [address] [address] Discharge Disposition: Still a Patient 04/05/2025 Orders Only [facility] [address] [address] Radiation Oncology, PhysicianMD 04/04/2025 1:53 PM EDT - 04/04/2025 11:59 PM EDT Hospital Encounter [facility] [address] [phone] Nancy Stanley MD Malignant neoplasm of rectum (CMS/HCC) (Primary Dx) Discharge Disposition: Still a Patient 04/04/2025 1:47 PM EDT - 04/04/2025 1:52 PM EDT Hospital Encounter [facility] [address] [address] Discharge Disposition: Still a Patient 04/04/2025 Orders Only [facility] [address] [place] [address] Radiation Oncology, PhysicianMD 04/03/2025 1:29 PM EDT - 04/03/2025 11:59 PM EDT Hospital Encounter [facility] [address] [address] Discharge Disposition: Still a Patient 04/03/2025 Orders Only [facility] [address] [address] Radiation Oncology, PhysicianMD 04/02/2025 1:58 PM EDT - 04/02/2025 11:59 PM EDT Hospital Encounter [facility] [address] [address] Discharge Disposition: Still a Patient 04/02/2025 Orders Only [facility] [address] [phone] Radiation Oncology, PhysicianMD 04/01/2025 1:41 PM EDT - 04/01/2025 11:59 PM EDT Hospital Encounter [facility] [address] [address] Discharge Disposition: Still a Patient 04/01/2025 5:30 AM EDT - 04/01/2025 1:40 PM EDT Hospital Encounter [facility] [address] [phone] Discharge Disposition: Still a Patient 04/01/2025 Orders Only [facility] [address] [phone] Radiation Oncology, PhysicianMD 04/01/2025 Travel 03/29/2025 1:25 PM EDT - 03/29/2025 11:59 PM EDT Hospital Encounter [facility] [address] [address] Discharge Disposition: Still a Patient 03/29/2025 Orders Only [facility] [address] [address] Radiation Oncology, PhysicianMD 03/28/2025 1:54 PM EDT - 03/28/2025 11:59 PM EDT Hospital Encounter [facility] [address] [phone] Km Wooten MD Malignant neoplasm of rectum (CMS/HCC) (Primary Dx) Discharge Disposition: Still a Patient 03/28/2025 1:37 PM EDT - 03/28/2025 1:53 PM EDT Hospital Encounter [facility] [address] [address] Discharge Disposition: Still a Patient 03/28/2025 Orders Only [facility] [address] [phone] Radiation Oncology, PhysicianMD 03/27/2025 1:38 PM EDT - 03/27/2025 11:59 PM EDT Hospital Encounter [facility] [address] [address] Discharge Disposition: Still a Patient 03/27/2025 Orders Only [facility] [address] [phone] Radiation Oncology, PhysicianMD 03/26/2025 1:30 PM EDT - 03/26/2025 11:59 PM EDT Hospital Encounter [facility] [address] [address] Discharge Disposition: Still a Patient 03/26/2025 Orders Only [facility] [address] [phone] Radiation Oncology, PhysicianMD 03/25/2025 1:35 PM EDT - 03/25/2025 11:59 PM EDT Hospital Encounter [facility] [address] [address] Discharge Disposition: Still a Patient 03/25/2025 5:30 AM EDT - 03/25/2025 1:34 PM EDT Hospital Encounter [facility] [address] [phone] Discharge Disposition: Still a Patient 03/25/2025 Orders Only [facility] [address] [address] Radiation Oncology, Physician, 03/25/2025 Travel 03/22/2025 1:49 PM EDT - 03/22/2025 11:59 PM EDT Hospital Encounter [facility] [address] [phone] Discharge Disposition: Still a Patient 03/22/2025 Orders Only [facility] [address] [address] Radiation Oncology, Physician, 03/21/2025 2:12 PM EDT - 03/21/2025 11:59 PM EDT Hospital Encounter [facility] [address] [address] Km Wooten MD Malignant neoplasm of rectum (CMS/HCC) (Primary Dx) Discharge Disposition: Still a Patient 03/21/2025 1:48 PM EDT - 03/21/2025 2:11 PM EDT Hospital Encounter [facility] [address] [phone] Km Wooten MD Discharge Disposition: Still a Patient 03/21/2025 Travel 03/21/2025 Orders Only [facility] [address] [address] Radiation Oncology, Physician, 03/20/2025 Travel 03/18/2025 8:34 AM EDT - 03/18/2025 11:59 PM EDT Hospital Encounter [facility] [address] [phone] Discharge Disposition: Still a Patient 03/18/2025 Travel 03/15/2025 9:00 AM EDT Office Visit [facility] 800 [facility], [address]nd [place] [address] Deepak Haider MD Malignant neoplasm of rectum [...] 02/20/2016 Sigmoidoscopy 02/20/2016 [facility]-Colorectal Cancer Screening 02/20/2016 [id number] Vaccine (4 - season) 2025 06/24/2021, 11/08/2020, [...] ONCOLOGY Reference Point Dosage Given to Date 49.617821676 0001 Gy ARIA RADIATION ONCOLOGY Plan ID [...] ONCOLOGY Reference Point Dosage Given to Date 49.390447682 0001 Gy ARIA RADIATION ONCOLOGY Reference Point Session Dosage Given 1.55974495 Gy ARIA RADIATION ONCOLOGY Plan ID [id number] [...] ONCOLOGY Reference Point Dosage Given to Date 47.288432144 0001 Gy ARIA RADIATION ONCOLOGY Reference Point Session Dosage Given 1.36543248 Gy ARIA RADIATION ONCOLOGY Plan ID [id number] [...] ONCOLOGY Reference Point Dosage Given to Date 45.796138116 0001 Gy ARIA RADIATION ONCOLOGY Reference Point Session Dosage Given 1.53126826 Gy ARIA RADIATION ONCOLOGY Plan ID [id number] [...] ONCOLOGY Reference Point Dosage Given to Date 43.90558842 Gy ARIA RADIATION ONCOLOGY Reference Point Session Dosage Given 1.84497148 Gy ARIA RADIATION ONCOLOGY Plan ID [id number] [...] ONCOLOGY Reference Point Dosage Given to Date 41.47216591 Gy ARIA RADIATION ONCOLOGY Reference Point Session Dosage Given 1.27478886 Gy ARIA RADIATION ONCOLOGY Plan ID [id number] [...] ONCOLOGY Reference Point Dosage Given to Date 39.1248713 Gy ARIA RADIATION ONCOLOGY Reference Point Session Dosage Given 1.08851288 Gy ARIA RADIATION ONCOLOGY Plan ID [id number] [...] ONCOLOGY Reference Point Dosage Given to Date 37.14456098 Gy ARIA RADIATION ONCOLOGY Reference Point Session Dosage Given 1.23899014 Gy ARIA RADIATION ONCOLOGY Plan ID [id number] [...] ONCOLOGY Reference Point Dosage Given to Date 35.19469222 Gy ARIA RADIATION ONCOLOGY Reference Point Session Dosage Given 1.52012876 Gy ARIA RADIATION ONCOLOGY Plan ID [id number] [...] ONCOLOGY Reference Point Dosage Given to Date 33.67730035 Gy ARIA RADIATION ONCOLOGY Reference Point Session Dosage Given 1.69077446 Gy ARIA RADIATION ONCOLOGY Plan ID [id number] [...] ONCOLOGY Reference Point Dosage Given to Date 31.11010376 Gy ARIA RADIATION ONCOLOGY Reference Point Session Dosage Given 1.35881934 Gy ARIA RADIATION ONCOLOGY Plan ID [id number] [...] ONCOLOGY Reference Point Dosage Given to Date 29.07057000 Gy ARIA RADIATION ONCOLOGY Reference Point Session Dosage Given 1.12463589 Gy ARIA RADIATION ONCOLOGY Plan ID [id number] [...] ONCOLOGY Reference Point Dosage Given to Date 27.36931031 Gy ARIA RADIATION ONCOLOGY Reference Point Session Dosage Given 1.84644232 Gy ARIA RADIATION ONCOLOGY Plan ID [id number] [...] ONCOLOGY Reference Point Dosage Given to Date 25.16004120 Gy ARIA RADIATION ONCOLOGY Reference Point Session Dosage Given 1.46215543 Gy ARIA RADIATION ONCOLOGY Plan ID [id number] [...] ONCOLOGY Reference Point Dosage Given to Date 23.51093329 Gy ARIA RADIATION ONCOLOGY Reference Point Session Dosage Given 1.59406998 Gy ARIA RADIATION ONCOLOGY Plan ID [id number] [...] ONCOLOGY Reference Point Dosage Given to Date 21.84440396 Gy ARIA RADIATION ONCOLOGY Reference Point Session Dosage Given 1.60855187 Gy ARIA RADIATION ONCOLOGY Plan ID [id number] [...] ONCOLOGY Reference Point Dosage Given to Date 19.0560181 Gy ARIA RADIATION ONCOLOGY Reference Point Session Dosage Given 1.85000409 Gy ARIA RADIATION ONCOLOGY Plan ID [id number] [...] ONCOLOGY Reference Point Dosage Given to Date 17.75279707 Gy ARIA RADIATION ONCOLOGY Reference Point Session Dosage Given 1.18699631 Gy ARIA RADIATION ONCOLOGY Plan ID [id number] [...] ONCOLOGY Reference Point Dosage Given to Date 15.09803318 Gy ARIA RADIATION ONCOLOGY Reference Point Session Dosage Given 1.17796651 Gy ARIA RADIATION ONCOLOGY Plan ID [id number] [...] ONCOLOGY Reference Point Dosage Given to Date 13.78006173 Gy ARIA RADIATION ONCOLOGY Reference Point Session Dosage Given 1.32638844 Gy ARIA RADIATION ONCOLOGY Plan ID [id number] [...] ONCOLOGY Reference Point Dosage Given to Date 11.11867829 Gy ARIA RADIATION ONCOLOGY Reference Point Session Dosage Given 1.11411792 Gy ARIA RADIATION ONCOLOGY Plan ID [id number] [...] ONCOLOGY Reference Point Dosage Given to Date 9.58992443 Gy ARIA RADIATION ONCOLOGY Reference Point Session Dosage Given 1.90849021 Gy ARIA RADIATION ONCOLOGY Plan ID [id number] [...] ONCOLOGY Reference Point Dosage Given to Date 7.97571424 Gy ARIA RADIATION ONCOLOGY Reference Point Session Dosage Given 1.51991408 Gy ARIA RADIATION ONCOLOGY Plan ID [id number] [...] ONCOLOGY Reference Point Dosage Given to Date 5.19576148 Gy ARIA RADIATION ONCOLOGY Reference Point Session Dosage Given 1.58496964 Gy ARIA RADIATION ONCOLOGY Plan ID [id number] [...] ONCOLOGY Reference Point Dosage Given to Date 3.94875267 Gy ARIA RADIATION ONCOLOGY Reference Point Session Dosage Given 1.51445160 Gy ARIA RADIATION ONCOLOGY Plan ID [id number] [...] ONCOLOGY Reference Point Dosage Given to Date 1.21842034 Gy ARIA RADIATION ONCOLOGY Reference Point Session Dosage Given 1.67711657 Gy ARIA RADIATION ONCOLOGY Plan ID [id number] [...] Date Diagnosed Date Autogenerated Problem 02/28/2025 Insurance [facility] Care Teams Wreath Machine Tender Relationship Specialty Start Date End Date Comfort Siddiqi APRN [address] [place] [address] PCP - General 03/12/25 Km Wooten MD 800 [facility] [address] [place] [address] Consulting Physician Radiation Oncology 02/14/25
--- OUTSIDE RECORDS SUMMARY | 2025-06-14 15:30 | XMS_ITS | Encounter Summary ---
Author Organization [facility] Address [address] [place] [address] Care Team Providers Care Shoe Treer Name Role Phone Km Wooten MD Unavailable [phone] Comfort Siddiqi APRN Primary Care Provider [phone] Encounter Details Date Type Department Care Team (Late st Contact Info) Description 04/26/2025 Orders Only [facility] [address] [place] [address] Radiation Oncology, Physician, [address] [place], [place] [id number] Social History Tobacco Use Types Packs/Day Years [...] documented as of this encounter Care Teams Shoe Treer Relationship Specialty Start Date End Date Comfort Siddiqi APRN [address] [place] [address] PCP - General 03/12/25 Km Wooten MD [address] [address] Consulting Physician Radiation Oncology 02/14/25 documented as of this encounter
--- OUTSIDE RECORDS SUMMARY | 2025-06-14 15:30 | XMS_ITS | Encounter Summary ---
Author Organization [facility] Address [address] [place] [address] Care Team Providers Care Band Sewer Name Role Phone Tejal Saeed APRN Primary Care Provider [phone] Km Wooten MD Unavailable [phone] Comfort Siddiqi APRN Primary Care Provider [phone] Encounter Details Date Type Department Care Team (Late st Contact Info) Description 01/08/2025 Orders Only External Location [address] [place] [address] Provider, External Social History Tobacco Use Types [...] on filedocumented in this encounter Care Teams Band Sewer Relationship Specialty Start Date End Date Tejal Saeed APRN [address] [place] [address] PCP - General 11/07/20 03/11/25 Comfort Siddiqi APRN [address] [place] [address] PCP - General 03/12/25 Km Wooten MD 800 [facility] [address] [place] [address] Consulting Physician Radiation Oncology 02/14/25 documented as of this encounter
--- OUTSIDE RECORDS SUMMARY | 2025-06-14 15:30 | XMS_ITS | Encounter Summary ---
Author Organization [facility] Address [address] [id number] Care Team Providers Care Carpentry Professional Name Role Phone Km Wooten MD Unavailable [phone] Comfort Siddiqi APRN Primary Care Provider [phone] Encounter Details Date Type Department Care Team [...] documented as of this encounter Care Teams Carpentry Professional Relationship Specialty Start Date End Date Comfort Siddiqi APRN [address] [place] [address] PCP - General 03/12/25 Km Wooten MD 800 [facility] [address] [place] [address] Consulting Physician Radiation Oncology 02/14/25 documented as of this encounter
--- OUTSIDE RECORDS SUMMARY | 2025-06-14 15:30 | XMS_ITS | Encounter Summary ---
Author Organization [facility] Address [address] [place] [address] Care Team Providers Care Burlap Spreader Name Role Phone Km Wooten MD Unavailable [phone] Comfort Siddiqi APRN Primary Care Provider [phone] Encounter Details Date Type Department Care Team (Late st Contact Info) Description 04/18/2025 Orders Only [facility] [address] [place] [address] Radiation Oncology, Physician, [address] [place], [place] [id number] Social History Tobacco Use Types Packs/Day Years [...] ONCOLOGY Reference Point Dosage Given to Date 41.66558269 Gy ARIA RADIATION ONCOLOGY Reference Point Session Dosage Given 1.43617274 Gy ARIA RADIATION ONCOLOGY Plan ID [id number] [...] documented as of this encounter Care Teams Burlap Spreader Relationship Specialty Start Date End Date Comfort SiddiqiTARUN [address] [place] [address] PCP - General 03/12/25 Km Wooten MD 800 [facility] [address] [place] [address] Consulting Physician Radiation Oncology 02/14/25 documented as of this encounter
--- OUTSIDE RECORDS SUMMARY | 2025-06-14 15:30 | XMS_ITS | Encounter Summary ---
Author Organization [facility] Address [address] [place] [address] Care Team Providers Care Brake Assembler Name Role Phone Km Wooten MD Unavailable [phone] Comfort Siddiqi APRN Primary Care Provider Encounter Details Date Type Department Care Team (Late st Contact Info) Description 04/15/2025 Orders Only [facility] [address] [place] [address] Radiation Oncology, Physician, [address] [place], [place] [id number] Social History Tobacco Use Types Packs/Day Years [...] ONCOLOGY Reference Point Dosage Given to Date 35.75738565 Gy ARIA RADIATION ONCOLOGY Reference Point Session Dosage Given 1.68613394 Gy ARIA RADIATION ONCOLOGY Plan ID [id number] [...] as of this encounter Care Teams Brake Assembler Relationship Specialty Start Date End Date Comfort SiddiqiTARUN [address] [place] [address] PCP - General 03/12/25 Km Wooten MD [address] [facility] [address] [place] [address] Consulting Physician Radiation Oncology 02/14/25 documented as of this encounter
--- OUTSIDE RECORDS SUMMARY | 2025-06-14 15:30 | XMS_ITS | Encounter Summary ---
Author Organization [facility] Address [address] [id number] Care Team Providers Care Merchandising Internship Name Role Phone Km Wooten MD Unavailable [phone] Comfort Siddiqi APRN Primary Care Provider [phone] Encounter Details Date Type Department Care Team [...] documented as of this encounter Care Teams Merchandising Internship Relationship Specialty Start Date End Date Comfort Siddiqi APRN [address] [place] [address] PCP - General 03/12/25 Km Wooten MD 800 [facility] [address] [place] [address] Consulting Physician Radiation Oncology 02/14/25 documented as of this encounter
--- OUTSIDE RECORDS SUMMARY | 2025-06-14 15:30 | XMS_ITS | Encounter Summary ---
Author Organization [facility] Address [address] [place] [address] Care Team Providers Care Tower Loader Operator Name Role Phone Tejal Saeed APRN Primary Care Provider [phone] Km Wooten MD Unavailable [phone] Comfort Siddiqi APRN Primary Care Provider [phone] Encounter Details Date Type Department Care Team (Late st Contact Info) Description 02/08/2025 Lab Requisition [facility] [address] [place] [address] Con Sumner MD [address] [facility] [address] [place] [address] Hemorrhage of anus and rectum Social History [...] EDT) Case Report Sugical Pathology Consult Case: [id number] Authorizing Provider: Con Sumner MD Collected: 02/08/20251104 Ordering Location: [facility] Lab Received: 02/08/2025 110 Pathologist: Luis Weiner DO Specimen: Colon, [id number] 02/10/2025 12:[address] [facility] Final Diagnosis DESIGNATED COLON, RECTUM; MASS, BIOPSY (OUTSIDE SLIDES; [id number]; 02/05/2025): - MODERATELY DIFFERENTIATED ADENOCARCINOMA (SEE COMMENT). [...] [facility] Gross Description A. [id number] Received along with a corresponding pathology report from [facility]ology Laboratory are 5 slide(s) labeled outside case: [id number] collected on 01/31/2025. 02/10/2025 12:09 PM EDT [...] Final Result [facility] [address] [place] [address] documented in this encounter Visit Diagnoses Diagnosis [...] as of this encounter Care Teams Tower Loader Operator Relationship Specialty Start Date End Date Tejal Saeed APRN [address] [place] [address] PCP - General 11/07/20 03/11/25 Comfort Siddiqi APRN [address] [place] [address] PCP - General 03/12/25 Km Wooten MD 800 [facility] [address] [place] [address] Consulting Physician Radiation Oncology 02/14/25 documented as of this encounter
--- OUTSIDE RECORDS SUMMARY | 2025-06-14 15:30 | XMS_ITS | Encounter Summary ---
Author Organization Address [address] [id number] Care Team Providers Care Linseed Oil Refiner Name Role Phone Km Wooten MD Unavailable [phone] Comfort Siddiqi APRN Primary Care Provider [...] documented as of this encounter Care Teams Linseed Oil Refiner Relationship Specialty Start Date End Date Comfort Siddiqi APRN [address] [place] [address] PCP - General 03/12/25 Km Wooten MD 800 [facility] [address] [place] [address] Consulting Physician Radiation Oncology 02/14/25 documented as of this encounter
--- OUTSIDE RECORDS SUMMARY | 2025-06-14 15:30 | XMS_ITS | Encounter Summary ---
Author Organization Healthcare Address [address] [place] [address] Care Team Providers Care Bank Messenger Name Role Phone Km Wooten MD Unavailable [phone] Comfort Siddiqi APRN Primary Care Provider [phone] Encounter Details Date Type Department Care Team (Late st Contact Info) Description 04/26/2025 Orders Only [facility] [address] [place] [address] Radiation Oncology, Physician, [address] [place], [place] [id number] Social History Tobacco Use Types Packs/Day Years [...] ONCOLOGY Reference Point Dosage Given to Date [id number] 0001 Gy ARIA RADIATION ONCOLOGY Plan ID [...] as of this encounter Care Teams Bank Messenger Relationship Specialty Start Date End Date Comfort Siddiqi APRN [address] [place] [address] PCP - General 03/12/25 Km Wooten MD [address] [facility] [address] [place] [address] Consulting Physician Radiation Oncology 02/14/25 documented as of this encounter
--- OUTSIDE RECORDS SUMMARY | 2025-06-14 15:30 | XMS_ITS | Encounter Summary ---
Author Organization [facility] Address [address] [place] [address] Care Team Providers Care Pewter Caster Name Role Phone Tejal Saeed APRN Primary Care Provider [phone] Km Wooten MD Unavailable [phone] Comfort Siddiqi APRN Primary Care Provider [phone] Encounter Details Date Type Department Care Team (Late st Contact Info) Description 01/08/2025 Orders Only External Location [address] [place] [address] Provider, External Social History Tobacco Use Types [...] on filedocumented in this encounter Care Teams Pewter Caster Relationship Specialty Start Date End Date Tejal Saeed APRN [address] [place] [address] PCP - General 11/07/20 03/11/25 Comfort Siddiqi APRN [address] [place] [address] PCP - General 03/12/25 Km Wooten MD 800 [facility] [address] [place] [address] Consulting Physician Radiation Oncology 02/14/25 documented as of this encounter
--- NOTE | 2025-06-14 15:44 | PC.NURSE ---
pt arrived to have 5FU pump removed and port deaccessed. pt reported that needle had become dislodged on tuesday night around 0030. pt went to ER. (see ER note). upon inspection, port was dressed was several strips of generic medical tape and a 2x2 telfa directly over port. port needle was a one inch power lock needle. 5FU pump was turned off and unhooked. port was flushed with saline flush and heparinized saline and needle removed. large bandaid applied. pt tolerated well.
[2025-06-14] MEDS: SODIUM CHLORIDE 0.9% 10ML FLUSH SYRINGE 10 ML IV (15:53)
== END 2025-06-14 23:59 | disposition home or self-care (01) ==
LOC: INF 15:27
PROVIDERS: PCP Family Medicine; Visit Provider Internal Medicine Medical Oncology
DX: C20 Malignant neoplasm of rectum (principal)
CPT/HCPCS: 96523; J1642

== ENCOUNTER 2025-06-26 09:15 | Outpatient (CLI) | payer OTHER, SELFPAY ==
--- OUTSIDE RECORDS SUMMARY | 2025-04-29 08:39 | XMS_ITS | Encounter Summary ---
Author Organization Healthcare Address [address] [id number] Care Team Providers Care Cellular Biologist Name Role Phone Km Wooten MD Unavailable [phone] Comfort Siddiqi APRN Primary Care Provider [phone] Encounter Details Date Type Department Care Team (Latest Contact Info) Description 04/29/2025 8:39 AM EST - 04/29/2025 11:[address] [facility] Hospital Encounter PAV CC Radiation [address] [id number] [place] [address] Discharge Disposition: Still a Patient Social History [...] documented as of this encounter Care Teams Cellular Biologist Relationship Specialty Start Date End Date Comfort Siddiqi APRN [address] [place] [address] PCP - General 03/12/25 Km Wooten MD [address] [facility] C114D [place] [address] Consulting Physician Radiation Oncology 02/14/25 documented as of this encounter
--- OUTSIDE RECORDS SUMMARY | 2025-05-27 13:28 | XMS_ITS | Encounter Summary ---
Author Organization [facility] Address [address] [id number] Care Team Providers Care Principal Quality Engineer Name Role Phone Km Wooten MD Unavailable [phone] Comfort Siddiqi APRN Primary Care Provider [phone] Reason for Visit * Reason Comments Follow-up Encounter Details Date Type Department Care Team (Latest Contact Info) Description 05/27/2025 1:28 PM EST - 05/27/2025 11:59 PM EST Hospital Encounter [facility] Radiation [id number] [place] [address] Marci Gonzalez UPHOLSTERER APPRENTICE [address] [place] [address] Malignant neoplasm of rectum (CMS/HCC) (Primary Dx) [...] 9:47 AM EDT documented in this encounter Functional Status * BP Answer Date of Assessment Author 129/80 05/27/2025 1:37 PM EST Aron Hayes RN * Pulse Answer Date of Assessment Author 89 05/27/2025 1:37 PM EST Aron Hayes RN * Resp Answer Date of Assessment Author 16 05/27/2025 1:37 PM EST Aron Hayes RN * SpO2 Answer Date of Assessment Author 96 05/27/2025 1:37 PM Aron Back RN * Weight Answer Date of Assessment Author 4543.24 05/27/2025 1:37 PM Aron Back RN * Total Weight Change Percent Answer Date of Assessment Author 2222 05/27/2025 1:37 PM Aron Back RN * Weight Change Since Preop Answer Date of Assessment Author 128.77 05/27/2025 1:37 PM Aron Back RN * Weight Change Since Last Visit Answer Date of Assessment Author 128.77 05/27/2025 1:37 PM Aron Back RN * Weight Change 24 hrs Answer Date of Assessment Author 4.5 05/27/2025 1:37 PM Aron Back RN * Restart Vitals Timer Answer Date of Assessment Author Yes 05/27/2025 1:37 PM EST Hayes, C hristine R, RN * Weight Change Since Preop Answer Date of Assessment Author 128.8 05/27/2025 1:37 PM Aron Back, RN * Weight Change Since Last Visit Answer Date of Assessment Author 4.5 05/27/2025 1:37 PM Aron Back, RN * Difference in Weight Since Last Visit Answer Date of Assessment Author 4.5 05/27/2025 1:37 PM Aron Back, RN * Pain Score Answer Date of Assessment Author 0 05/27/2025 1:35 PM Aron Back R, RN * Pain Screening/Additional Assessments Question Answer Date of Assessment Author Pain Screening/Assessments Pain Screening 05/27/2025 1:35 PM Althea Back RN * Pain Screening Answer Date of Assessment Author 0-10 05/27/2025 1:35 PM Aron Back, RN * BP Answer Date of Assessment Author 129/80 05/27/2025 1:37 PM Aron Back, RN * Pulse Answer Date of Assessment Author 89 05/27/2025 1:37 PM Aron Back, RN * Resp Answer Date of Assessment Author 16 05/27/2025 1:37 PM Aron Back, RN * SpO2 Answer Date of Assessment Author 96 05/27/2025 1:37 PM Aron Back, RN * Weight Answer Date of Assessment Author 4543.24 05/27/2025 1:37 PM Aron Back, RN * Restart Vitals Timer Answer Date of Assessment Author Yes 05/27/2025 1:37 PM Aron Back, RN * Pain Score Answer Date of Assessment Author 0 05/27/2025 1:35 PM Aron Back RN documented as of this encounter Mental Status * BP Answer Entry Date Author 129/80 05/27/2025 1:37 PM Aron Back, RN * Pulse Answer Entry Date Author 89 05/27/2025 1:37 PM Aron Back, RN * Resp Answer Entry Date Author 16 05/27/2025 1:37 PM Aron Back, RN * SpO2 Answer Entry Date Author 96 05/27/2025 1:37 PM Aron Back RN * Weight Answer Entry Date Author 4543.24 05/27/2025 1:37 PM Aron Back RN * Total Weight Change Percent Answer Entry Date Author 222105/27/2025 1:37 PM Aron Back RN * Weight Change Since Preop Answer Entry Date Author 128.77 05/27/2025 1:37 PM Aron Back RN * Weight Change Since Last Visit Answer Entry Date Author 128.77 05/27/2025 1:37 PM Aron Back RN * Weight Change 24 hrs Answer Entry Date Author 4.5 05/27/2025 1:37 PM Aron Back RN * Restart Vitals Timer Answer Entry Date Author Yes 05/27/2025 1:37 PM Aron Back RN * Restart Pain Assessment Timer Answer Entry Date Author Yes 05/27/2025 1:35 PM Aron Back RN * Weight Change Since Preop Answer Entry Date Author 128.8 05/27/2025 1:37 PM Aron Back RN * Weight Change Since Last Visit Answer Entry Date Author 4.5 05/27/2025 1:37 PM Aron Back RN * Difference in Weight Since Last Visit Answer Entry Date Author 4.5 05/27/2025 1:37 PM Aron Back RN * Pain Score Answer Entry Date Author 0 05/27/2025 1:35 PM Aron Back RN * Pain Screening Answer Entry Date Author 0-10 05/27/2025 1:35 PM Aron Back RN documented in this encounter Medications at Time [...] Notes * Progress Notes - Marci Gonzalez, UPHOLSTERER APPRENTICE - 05/27/2025 2:20 PM EST [facility] RADIATION MEDICINE RADIATION ONCOLOGY UPHOLSTERER APPRENTICE FOLLOW UP NOTE Carlos Tripp is a [...] lower rectum adenoca, Stage III cT3 cN2a [id number] 02/05/25, now one month status post neoadjuvant [...] with Dr. Kaleb Bill Medical Oncology at [facility] in [place]. Review of Systems Constitutional: Negative for activity [...] regarding follow-up care. Marci Gonzalez RN, MSN, DICER OPERATOR-C, Nurse Practitioner Radiation Oncology [1] Social [...] documented as of this encounter Care Teams Principal Quality Engineer Relationship Specialty Start Date End Date Comfort Siddiqi APRN [address] [place] [address] PCP - General 03/12/25 Km Wooten MD [address] [place], [place] [address] [place] [address] Consulting Physician Radiation Oncology 02/14/25 documented as of this encounter
[2025-06-26] VITALS (10 sets, daily range): BP systolic 101–123; BP diastolic 53–65; PULSE 71–79; RESP 16–17; TEMP 35.9; O2SAT 96; BMI 44.2
--- OUTSIDE RECORDS SUMMARY | 2025-06-26 09:21 | XMS_ITS | Encounter Summary ---
Author Organization [facility] Address [address] [id number] Care Team Providers Care Special Effects Technician Name Role Phone Km Wooten MD Unavailable [phone] Comfort Siddiqi APRN Primary Care Provider [phone] Encounter Details Date Type Department Care Team [...] as of this encounter Functional Status * Communicable Disease Screening Question Answer Date of Assessment Author Have you been in contact wit h someone who was sick? No / Unsure 05/27/2025 1:28 PM Janna Meneses Do you have any of the follo wing new or worsening symptoms? None of these 05/27/2025 1:28 PM Me jinny Meneses * Travel Screening Question Answer Date of Assessment Author Have you traveled [place] or domestically in the last month? No 05/27/2025 1:28 PM Janna Chirinos documented as of this encounter Mental Status * Communicable Disease Screening Question Answer Entry Date Author Have you been in contact wit h someone who was sick? No / Unsure 05/27/2025 1:28 PM Janna Meneses Do you have any of the follo wing new or worsening symptoms? None of these 05/27/2025 1:28 PM Me jinny Meneses * Travel Screening Question Answer Entry Date Author Have you traveled [place] or domestically in the last month? No 05/27/2025 1:28 PM Janna Chirinos documented in this encounter Plan of Treatment [...] as of this encounter Care Teams Special Effects Technician Relationship Specialty Start Date End Date Comfort Siddiqi APRN [address] [place] [address] PCP - General 03/12/25 Km Wooten MD [address] [facility] [address] [place] [address] Consulting Physician Radiation Oncology 02/14/25 documented as of this encounter
--- OUTSIDE RECORDS SUMMARY | 2025-06-26 09:21 | XMS_ITS | Encounter Summary ---
Author Organization Healthcare Address [address] [id number] Care Team Providers Care Test Architect Name Role Phone Km Wooten MD Unavailable [phone] Comfort Siddiiq APRN Primary Care Provider Encounter Details Date [...] as of this encounter Functional Status * Travel Screening Question Answer Date of Assessment Author Have you traveled [place] or domestically in the last month? No 05/20/2025 8:23 AM EST Mycha rt, Generic documented as of this encounter Mental Status * Travel Screening Question Answer Entry Date Author Have you traveled [place] or domestically in the last month? No 05/20/2025 8:23 AM EST Mycha rt, Generic documented in this encounter Plan of Treatment [...] as of this encounter Care Teams Test Architect Relationship Specialty Start Date End Date Comfort Siddiqi APRN [address] [place] [address] PCP - General 03/12/25 Km Wooten MD [id number] [place] [address] Consulting Physician Radiation Oncology 02/14/25 documented as of this encounter
--- OUTSIDE RECORDS SUMMARY | 2025-06-26 09:21 | XMS_ITS | Encounter Summary ---
Author Organization [facility] Address [address] [place] [address] Care Team Providers Care Mold Filler Plastic Dolls Name Role Phone Tejal Saeed APRN Primary Care Provider [phone] Km Wooten MD Unavailable [phone] Comfort Siddiqi APRN Primary Care Provider [phone] Encounter Details Date Type Department Care Team (Late st Contact Info) Description 01/08/2025 Orders Only External Location [address] [place] [address] Provider, External Social History Tobacco Use Types [...] on filedocumented in this encounter Care Teams Mold Filler Plastic Dolls Relationship Specialty Start Date End Date Tejal Saeed APRN [address] [place] [address] PCP - General 11/07/20 03/11/25 Comfort Siddiqi APRN [address] [place] [address] PCP - General 03/12/25 Km Wooten MD [address] [facility] [address] [place] [address] Consulting Physician Radiation Oncology 02/14/25 documented as of this encounter
--- OUTSIDE RECORDS SUMMARY | 2025-06-26 09:22 | XMS_ITS | Encounter Summary ---
Author Organization [facility] Address [address] [place] [address] Care Team Providers Care Rehabilitation Services Coordinator Name Role Phone Tejal Saeed APRN Primary Care Provider [phone] Km Wooten MD Unavailable [phone] Comfort Siddiqi APRN Primary Care Provider [phone] Encounter Details Date Type Department Care Team (Late st Contact Info) Description 01/08/2025 Orders Only External Location [address] [place] [address] Provider, External Social History Tobacco Use Types [...] on filedocumented in this encounter Care Teams Rehabilitation Services Coordinator Relationship Specialty Start Date End Date Tejal aSeed APRN [address] [place] [address] PCP - General 11/07/20 03/11/25 Comfort Siddiqi APRN [address] [place] [address] PCP - General 03/12/25 Km Wooten MD 800 [facility] [address] [place] [address] Consulting Physician Radiation Oncology 02/14/25 documented as of this encounter
--- OUTSIDE RECORDS SUMMARY | 2025-06-26 09:22 | XMS_ITS | Clinical Summary ---
Author Organization [facility] Address [address] [place] [address] Care Team Providers Care Naval Gunfire Liaison Officer Name Role Phone Km Wooten MD Unavailable [phone] Comfort Siddiqi APRN Primary Care Provider [phone] Allergies No known active allergies Medications atorvastatin (Lipitor) 20 MG tablet Take 1 tablet by mouth daily. 01/11/2025 Active fluticasone (Flonase) 50 MCG/ACT nasal spray use 1 spray(s) in each nostril once daily 02/14/2025 Active capecitabine (Xeloda) 500 MG chemo tablet [...] Encounter [facility] [address] [place] [address] Marci Gonzalez APRN Malignant neoplasm of rectum (CMS/HCC) (Primary Dx) Discharge Disposition: Still a Patient 05/27/2025 Travel 05/20/2025 Travel 04/29/2025 8:39 AM EST - 04/29/2025 11:59 PM EST Hospital Encounter [facility] [address] [address] Discharge Disposition: Still a Patient 04/29/2025 Travel 04/26/2025 Orders Only [facility] [address] [phone] Radiation Oncology, PhysicianMD 04/26/2025 Orders Only [facility] [address] [phone] Radiation Oncology, PhysicianMD 04/24/2025 1:41 PM EDT - 04/24/2025 11:59 PM EDT Hospital Encounter [facility] [address] [phone] Discharge Disposition: Still a Patient 04/24/2025 Orders Only [facility] [address] [phone] Radiation Oncology, PhysicianMD 04/23/2025 1:48 PM EDT - 04/23/2025 11:59 PM EDT Hospital Encounter [facility] [address] [phone] Discharge Disposition: Still a Patient 04/23/2025 Orders Only [facility] [address] [address] Radiation Oncology, PhysicianMD 04/22/2025 1:40 PM EDT - 04/22/2025 11:59 PM EDT Hospital Encounter [facility] [address] [phone] Discharge Disposition: Still a Patient 04/22/2025 8:10 AM EDT - 04/22/2025 1:39 PM EDT Hospital Encounter [facility] [address] [phone] Discharge Disposition: Still a Patient 04/22/2025 Orders Only [facility] Radiation [address] [phone] Radiation Oncology, PhysicianMD 04/22/2025 Travel 04/19/2025 1:42 PM EDT - 04/19/2025 11:59 PM EDT Hospital Encounter [facility] [address] [address] Discharge Disposition: Still a Patient 04/19/2025 Orders Only [facility] Radiation [address] [address] Radiation Oncology, PhysicianMD 04/18/2025 2:03 PM EDT - 04/18/2025 11:59 PM EDT Hospital Encounter [facility] [address] [address] Km Wooten MD Malignant neoplasm of rectum (CMS/HCC) (Primary Dx) Discharge Disposition: Still a Patient 04/18/2025 1:36 PM EDT - 04/18/2025 2:02 PM EDT Hospital Encounter [facility] [address] [address] Discharge Disposition: Still a Patient 04/18/2025 Orders Only [facility] Radiation [address] [phone] Radiation Oncology, PhysicianMD 04/17/2025 1:52 PM EDT - 04/17/2025 11:59 PM EDT Hospital Encounter [facility] [address] [address] Discharge Disposition: Still a Patient 04/17/2025 Orders Only [facility] Radiation [address] [phone] Radiation Oncology, PhysicianMD 04/16/2025 1:28 PM EDT - 04/16/2025 11:59 PM EDT Hospital Encounter [facility] Rad[facility] [address] [address] Discharge Disposition: Still a Patient 04/16/2025 Orders Only [facility] Radiation [address] [address] Radiation Oncology, PhysicianMD 04/15/2025 1:27 PM EDT - 04/15/2025 11:59 PM EDT Hospital Encounter [facility] [address] [address] Discharge Disposition: Still a Patient 04/15/2025 8:33 AM EDT - 04/15/2025 1:26 PM EDT Hospital Encounter [facility] [address] [address] Discharge Disposition: Still a Patient 04/15/2025 Orders Only [facility] [address] [place] [address] Radiation Oncology, PhysicianMD 04/15/2025 Travel 04/12/2025 1:42 PM EDT - 04/12/2025 11:59 PM EDT Hospital Encounter [facility] [address] [address] Discharge Disposition: Still a Patient 04/12/2025 Orders Only [facility] Rad[facility] [address] [phone] Radiation Oncology, PhysicianMD 04/11/2025 1:50 PM EDT - 04/11/2025 11:59 PM EDT Hospital Encounter [facility] [address] [address] Km Wooten MD Malignant neoplasm of rectum (CMS/HCC) (Primary Dx) Discharge Disposition: Still a Patient 04/11/2025 1:31 PM EDT - 04/11/2025 1:49 PM EDT Hospital Encounter [facility] [address] [address] Discharge Disposition: Still a Patient 04/11/2025 Orders Only [facility] Rad[facility] [address] [phone] Radiation Oncology, PhysicianMD 04/10/2025 1:31 PM EDT - 04/10/2025 11:59 PM EDT Hospital Encounter [facility] [address] [address] Discharge Disposition: Still a Patient 04/10/2025 Orders Only [facility] Radiation [address] [address] Radiation Oncology, PhysicianMD 04/09/2025 1:45 PM EDT - 04/09/2025 11:59 PM EDT Hospital Encounter [facility] [address] [address] Discharge Disposition: Still a Patient 04/09/2025 Orders Only [facility] [address] [phone] Radiation Oncology, PhysicianMD 04/08/2025 1:38 PM EDT - 04/08/2025 11:59 PM EDT Hospital Encounter [facility] [address] [address] Discharge Disposition: Still a Patient 04/08/2025 5:30 AM EDT - 04/08/2025 1:37 PM EDT Hospital Encounter [facility] Rad[facility] [address] [phone] Discharge Disposition: Still a Patient 04/08/2025 Orders Only [facility] Radiation [address] [address] Radiation Oncology, PhysicianMD 04/08/2025 Travel 04/05/2025 2:06 PM EDT - 04/05/2025 11:59 PM EDT Hospital Encounter [facility] Rad[facility] [address] [address] Discharge Disposition: Still a Patient 04/05/2025 Orders Only [facility] [address] [address] Radiation Oncology, PhysicianMD 04/04/2025 1:53 PM EDT - 04/04/2025 11:59 PM EDT Hospital Encounter [facility] [address] [address] Nancy Stanley MD Malignant neoplasm of rectum (CMS/HCC) (Primary Dx) Discharge Disposition: Still a Patient 04/04/2025 1:47 PM EDT - 04/04/2025 1:52 PM EDT Hospital Encounter [facility] [address] [address] Discharge Disposition: Still a Patient 04/04/2025 Orders Only [facility] Rad[facility] [address] [address] Radiation Oncology, PhysicianMD 04/03/2025 1:29 PM EDT - 04/03/2025 11:59 PM EDT Hospital Encounter [facility] [address] [phone] Discharge Disposition: Still a Patient 04/03/2025 Orders Only [facility] Radiation [address] [address] Radiation Oncology, PhysicianMD 04/02/2025 1:58 PM EDT - 04/02/2025 11:59 PM EDT Hospital Encounter [facility] Rad[facility] [address] [address] Discharge Disposition: Still a Patient 04/02/2025 Orders Only [facility] Radiation [address] [address] Radiation Oncology, PhysicianMD 04/01/2025 1:41 PM EDT - 04/01/2025 11:59 PM EDT Hospital Encounter [facility] Rad[facility] [address] [address] Discharge Disposition: Still a Patient 04/01/2025 5:30 AM EDT - 04/01/2025 1:40 PM EDT Hospital Encounter [facility] Rad[facility] [address] [address] Discharge Disposition: Still a Patient 04/01/2025 Orders Only [facility] Radiation [address] [address] Radiation Oncology, PhysicianMD 04/01/2025 Travel 03/29/2025 1:25 PM EDT - 03/29/2025 11:59 PM EDT Hospital Encounter [facility] [address] [phone] Discharge Disposition: Still a Patient 03/29/2025 Orders Only [facility] Radiation [address] [address] Radiation Oncology, PhysicianMD 03/28/2025 1:54 PM EDT - 03/28/2025 11:59 PM EDT Hospital Encounter [facility] [address] [address] Km Wooten MD Malignant neoplasm of rectum (CMS/HCC) (Primary Dx) Discharge Disposition: Still a Patient 03/28/2025 1:37 PM EDT - 03/28/2025 1:53 PM EDT Hospital Encounter [facility] Rad[facility] [address] [address] Discharge Disposition: Still a Patient 03/28/2025 Orders Only [facility] Radiation [address] [address] Radiation Oncology, PhysicianMD 03/27/2025 1:38 PM EDT - 03/27/2025 11:59 PM EDT Hospital Encounter [facility] Rad[facility] [address] [address] Discharge Disposition: Still a Patient 03/27/2025 Orders Only [facility] Radiation [address] [phone] Radiation Oncology, PhysicianMD 03/26/2025 1:30 PM EDT - 03/26/2025 11:59 PM EDT Hospital Encounter [facility] [address] [address] Discharge Disposition: Still a Patient 03/26/2025 Orders Only [facility] Rad[facility] [address] [address] Radiation Oncology, PhysicianMD from Last 3 Months Family History Medical [...] 02/20/2016 Sigmoidoscopy 02/20/2016 [facility]-Colorectal Cancer Screening 02/20/2016 [id number] Vaccine ( season) 2025 06/24/2021, 11/08/2020, 10/11/2020 [...] SESSION SUMMARY Routine 03/26/2025 1:42 PM EDT from Last 3 Months Results [...] ONCOLOGY Reference Point Dosage Given to Date [id number] 0001 Gy ARIA RADIATION ONCOLOGY Plan ID [...] ONCOLOGY Reference Point Dosage Given to Date 49.409119817 0001 Gy ARIA RADIATION ONCOLOGY Reference Point Session Dosage Given 1.58013436 Gy ARIA RADIATION ONCOLOGY Plan ID [id number] [...] ONCOLOGY Reference Point Dosage Given to Date 47.511092339 0001 Gy ARIA RADIATION ONCOLOGY Reference Point Session Dosage Given 1.32728148 Gy ARIA RADIATION ONCOLOGY Plan ID [id number] [...] ONCOLOGY Reference Point Dosage Given to Date 45.108114130 0001 Gy ARIA RADIATION ONCOLOGY Reference Point Session Dosage Given 1.34791394 Gy ARIA RADIATION ONCOLOGY Plan ID [id number] [...] ONCOLOGY Reference Point Dosage Given to Date 43.25847809 Gy ARIA RADIATION ONCOLOGY Reference Point Session Dosage Given 1.76004968 Gy ARIA RADIATION ONCOLOGY Plan ID [id number] [...] ONCOLOGY Reference Point Dosage Given to Date 41.92015738 Gy ARIA RADIATION ONCOLOGY Reference Point Session Dosage Given 1.56732403 Gy ARIA RADIATION ONCOLOGY Plan ID [id number] [...] ONCOLOGY Reference Point Dosage Given to Date 39.4070497 Gy ARIA RADIATION ONCOLOGY Reference Point Session Dosage Given 1.77795975 Gy ARIA RADIATION ONCOLOGY Plan ID [id number] [...] ONCOLOGY Reference Point Dosage Given to Date 37.95172322 Gy ARIA RADIATION ONCOLOGY Reference Point Session Dosage Given 1.21396306 Gy ARIA RADIATION ONCOLOGY Plan ID [id number] [...] ONCOLOGY Reference Point Dosage Given to Date 35.09326691 Gy ARIA RADIATION ONCOLOGY Reference Point Session Dosage Given 1.49387968 Gy ARIA RADIATION ONCOLOGY Plan ID [id number] [...] ONCOLOGY Reference Point Dosage Given to Date 33.57902644 Gy ARIA RADIATION ONCOLOGY Reference Point Session Dosage Given 1.51024620 Gy ARIA RADIATION ONCOLOGY Plan ID [id number] [...] ONCOLOGY Reference Point Dosage Given to Date 31.50467407 Gy ARIA RADIATION ONCOLOGY Reference Point Session Dosage Given 1.16785594 Gy ARIA RADIATION ONCOLOGY Plan ID [id number] [...] ONCOLOGY Reference Point Dosage Given to Date 29.68509891 Gy ARIA RADIATION ONCOLOGY Reference Point Session Dosage Given 1.85966265 Gy ARIA RADIATION ONCOLOGY Plan ID [id number] [...] ONCOLOGY Reference Point Dosage Given to Date 27.44122050 Gy ARIA RADIATION ONCOLOGY Reference Point Session Dosage Given 1.20910757 Gy ARIA RADIATION ONCOLOGY Plan ID [id number] [...] ONCOLOGY Reference Point Dosage Given to Date 25.72616984 Gy ARIA RADIATION ONCOLOGY Reference Point Session Dosage Given 1.71429576 Gy ARIA RADIATION ONCOLOGY Plan ID [id number] [...] ONCOLOGY Reference Point Dosage Given to Date 23.55774892 Gy ARIA RADIATION ONCOLOGY Reference Point Session Dosage Given 1.62745036 Gy ARIA RADIATION ONCOLOGY Plan ID [id number] [...] ONCOLOGY Reference Point Dosage Given to Date 21.29553709 Gy ARIA RADIATION ONCOLOGY Reference Point Session Dosage Given 1.55210778 Gy ARIA RADIATION ONCOLOGY Plan ID [id number] [...] ONCOLOGY Reference Point Dosage Given to Date 19.9290296 Gy ARIA RADIATION ONCOLOGY Reference Point Session Dosage Given 1.50942543 Gy ARIA RADIATION ONCOLOGY Plan ID [id number] [...] ONCOLOGY Reference Point Dosage Given to Date 17.24259176 Gy ARIA RADIATION ONCOLOGY Reference Point Session Dosage Given 1.70460266 Gy ARIA RADIATION ONCOLOGY Plan ID [id number] [...] ONCOLOGY Reference Point Dosage Given to Date 15.56451662 Gy ARIA RADIATION ONCOLOGY Reference Point Session Dosage Given 1.84085698 Gy ARIA RADIATION ONCOLOGY Plan ID [id number] [...] ONCOLOGY Reference Point Dosage Given to Date 13.80046236 Gy ARIA RADIATION ONCOLOGY Reference Point Session Dosage Given 1.05209776 Gy ARIA RADIATION ONCOLOGY Plan ID [id number] [...] ONCOLOGY Reference Point Dosage Given to Date 11.62134760 Gy ARIA RADIATION ONCOLOGY Reference Point Session Dosage Given 1.27445356 Gy ARIA RADIATION ONCOLOGY Plan ID [id number] [...] ONCOLOGY Reference Point Dosage Given to Date 9.15265152 Gy ARIA RADIATION ONCOLOGY Reference Point Session Dosage Given 1.57284805 Gy ARIA RADIATION ONCOLOGY Plan ID [id number] [...] ONCOLOGY Reference Point Dosage Given to Date 7.22517864 Gy ARIA RADIATION ONCOLOGY Reference Point Session Dosage Given 1.89049329 Gy ARIA RADIATION ONCOLOGY Plan ID [id number] [...] Date Autogenerated Problem 02/28/2025 Insurance Care Teams Naval Gunfire Liaison Officer Relationship Specialty Start Date End Date Comfort Siddiqi APRN [address] [place] [address] PCP - General 03/12/25 Km Wooten MD [address] [place] [address] Consulting Physician Radiation Oncology 02/14/25
--- OUTSIDE RECORDS SUMMARY | 2025-06-26 09:22 | XMS_ITS | Encounter Summary ---
Author Organization [facility] Address [address] [place] [address] Care Team Providers Care Daycare Assistant Name Role Phone Tejal Saeed APRN Primary Care Provider [phone] Km Wooten MD Unavailable [phone] Comfort Siddiqi APRN Primary Care Provider [phone] Encounter Details Date Type Department Care Team (Late st Contact Info) Description 01/08/2025 Orders Only External Location [address] [place] [address] Provider, External Social History Tobacco Use Types [...] on filedocumented in this encounter Care Teams Daycare Assistant Relationship Specialty Start Date End Date Tejal Saeed APRN [address] [place] [address] PCP - General 11/07/20 03/11/25 Comfort Siddiqi APRN [address] [place] [address] PCP - General 03/12/25 Km Wooten MD 800 [facility] [address] [place] [address] Consulting Physician Radiation Oncology 02/14/25 documented as of this encounter
--- OUTSIDE RECORDS SUMMARY | 2025-06-26 09:22 | XMS_ITS ---
Author Organization [facility] Address [address] [place] [address] Care Team Providers Care Belt Sander Stone Name Role Phone Km Wooten MD Unavailable [phone] Comfort Siddiqi APRN Primary Care Provider [phone] Active Problems Problem Noted Date Diagnosed Date [...]
--- OUTSIDE RECORDS SUMMARY | 2025-06-26 09:22 | XMS_ITS | Encounter Summary ---
Author Organization [facility] Address [address] [id number] Care Team Providers Care Dietetics Teacher Name Role Phone Km Wooten MD Unavailable [phone] Comfort Siddiqi APRN Primary Care Provider [phone] Encounter Details Date Type Department Care Team [...] documented as of this encounter Care Teams Dietetics Teacher Relationship Specialty Start Date End Date Comfort Siddiqi APRN [address] [place] [address] PCP - General 03/12/25 Km Wooten MD [address] [facility] [address] [place] [address] Consulting Physician Radiation Oncology 02/14/25 documented as of this encounter
--- OUTSIDE RECORDS SUMMARY | 2025-06-26 09:22 | XMS_ITS | Encounter Summary ---
Author Organization [facility] Address [address] [place] [address] Care Team Providers Care Brine Tank Operator Name Role Phone Tejal Saeed APRN Primary Care Provider [phone] Km Wooten MD Unavailable [phone] Comfort Siddiqi APRN Primary Care Provider [phone] Encounter Details Date Type Department Care Team (Late st Contact Info) Description 02/08/2025 Lab Requisition [facility] [address] [place] [address] Con Sumner MD [address] [place] [address] Hemorrhage of anus and rectum Social History [...] EDT) Case Report Sugical Pathology Consult Case: [id number] Authorizing Provider: Con Sumner MD Collected: 02/08/20251104 Ordering Location: [facility] Lab Received: 02/08/2025 110 Pathologist: Luis Weiner DO Specimen: Colon, [id number] 02/10/2025 12:09 PM EDT [facility] Final Diagnosis DESIGNATED COLON, RECTUM; MASS, BIOPSY (OUTSIDE SLIDES; [id number]; 02/05/2025): - MODERATELY DIFFERENTIATED ADENOCARCINOMA (SEE COMMENT). - MMR BY IHC (PER REPORT): - RETAINED NUCLEAR EXPRESSION OF ALL FOUR PROTEINS (MLH1, PMS2, MSH2 AND MSH6). 02/10/2025 12:09 PM EDT [facility] at 1209 EDT Comment Correlation with endoscopic findings and imaging is recommended to determine site of tumor (colon vs rectum) given specimen designation. 02/10/2025 12:09 PM EDT [facility] Clinical Information K62.5 - Hemorrhage of anus and rectum [ICD-10-CM] 02/10/2025 12:09 PM EDT [facility] Gross Description A. [id number] Received along with a corresponding pathology report from [facility] are 5 slide(s) labeled outside case: [id number] collected on 01/31/2025. 02/10/2025 12:09 PM EDT [facility] Note: A resident was involved in the service. I attest I examined the relevant preparations for the specimens and confirmed the diagnosis or interpretation. 02/10/2025 12:09 PM EDT [facility] Tissue Colon structure / Unknown 02/08/2025 11:05 AM EDT 02/08/2025 11:05 AM EDT us Con Sumner MD LAB PATHOLOGY ORDERABLES Final Result [facility] [address] [place] [address] documented in this encounter Visit Diagnoses Diagnosis [...] documented as of this encounter Care Teams Brine Tank Operator Relationship Specialty Start Date End Date Tejal Saeed APRN [address] [place] [id number] PCP - General 11/07/20 03/11/25 Comfort Siddiqi APRN [address] [place] [address] PCP - General 03/12/25 Km Wooten MD [address] [facility] [address] [place] [address] Consulting Physician Radiation Oncology 02/14/25 documented as of this encounter
[2025-06-26 09:37] LABS: Hematocrit 37.3 % (42.0-52.0); Hemoglobin 12.7 g/dL (14.1-18.0); Immature Granulocytes % 0.5 %; Mean Corpuscular HGB Conc 34.0 g/dL (31.8-35.4); Mean Corpuscular Hemoglobin 28.7 pg (27.0-31.2); Mean Corpuscular Volume 84.4 fl (80-94); Nucleated Red Blood Cells % 0 %; Platelet Count 100 K/mm3 (142-424); Red Blood Count 4.42 M/mm3 (4.60-6.20); Red Cell Distribution Width-SD 44.3 fL; White Blood Count 3.8 K/mm3 (4.8-10.8)
[2025-06-26 09:49] LABS: Albumin Level 3.8 g/dl (3.5-5.0); Chloride 107 mmol/L (98-107); Sodium 138 mmol/L (136-145)
[2025-06-26 09:50] LABS: Potassium 3.9 mmoL/L (3.5-5.1)
[2025-06-26 09:52] LABS: Alanine Aminotransferase 38 U/L (12-78); Albumin/Globulin Ratio 1.7 (1.1-1.8); Alkaline Phosphatase 85 U/L (38-126); Anion Gap 6.9 mEq/L (5-15); Aspartate Amino Transferase 46 U/L (17-59); Bilirubin,Total 1.3 mg/dl (0.2-1.3); Blood Urea Nitrogen 15 mg/dl (9-20); Carbon Dioxide 28 mmol/L (22.0-30.0); Creatinine Clearance Estimated 76 mL/min (50-200); Creatinine,Serum 1.00 mg/dl (0.66-1.25); Estimated Glomerular Filt Rate 78 ml/min (>60); GFR (African American) 94 ML/MIN (>60); Globulin 2.3 g/dL (1.3-3.2); Total Protein,Serum 6.1 g/dl (6.3-8.2)
[2025-06-26 09:53] LABS: Calcium 9.4 mg/dl (8.4-10.2); Glucose 105 mg/dl (74-100)
[2025-06-26 09:56] LABS: Total Cells Counted 100
[2025-06-26 09:57] LABS: RBC Morphology Normal
[2025-06-26] MEDS: DEXAMETHASONE 4MG TABLET 12 MG PO (10:20)
[2025-06-26] MEDS: POTASSIUM CHLORIDE 20MEQ TAB 40 MEQ PO (10:21)
[2025-06-26] MEDS: ONDANSETRON 4MG ODT 16 MG SL (10:22)
[2025-06-26] MEDS: DEXTROSE 5 % IN WATER 100 ML IV (11:05)
[2025-06-26] MEDS: FLUOROURACIL 500MG/10ML VIAL 910 MG IV (13:24)
--- NOTE | 2025-06-26 15:09 | PC.NURSE ---
1325-5FU 910mg given IVP over 2 min at this time prior to hooking up to continuous 5FU.
== END 2025-06-26 23:59 | disposition home or self-care (01) ==
LOC: INF 09:17
PROVIDERS: PCP Family Medicine; Visit Provider Internal Medicine Medical Oncology
DX: C20 Malignant neoplasm of rectum (principal); Z51.11 Encounter for antineoplastic chemotherapy
CPT/HCPCS: 80053; 85007; 85025; 85027; 96368; 96411; 96413; 96415; 96416; J0640; J7060; J8540; J9190; J9263; Q0162